=== PATIENT | female | born 1960 | race Caucasian/White ===

== ENCOUNTER 2020-01-19 09:26 | Day surgery (SDC) | payer OTHER ==
--- NOTE | 2020-01-16 14:20 | HP ---
DATE OF SURGERY: 01/19/2020 HISTORY OF PRESENT ILLNESS: The patient presents with a swollen, tender left elbow. It has been going on for some time. She had an image of that. She had some inflammation in the olecranon bursa. She saw ortho for this and they said it was a nonsurgical issue and did not do anything for her. She presents today in pain and wishes for surgical intervention. PAST MEDICAL HISTORY: Rheumatoid arthritis, hypertension, hyperlipidemia, hypothyroidism, anxiety and depression. PAST SURGICAL HISTORY: Appendectomy. ALLERGIES: NKDA. MEDICATIONS: Carvedilol, Alprazolam, steroid, Neurontin, trazodone, carbamazepine, hydroxyzine. FAMILY HISTORY: Heart disease, lung cancer, stroke, abdominal aortic aneurysm. SOCIAL HISTORY: Smokes one pack a day. Denies alcohol. REVIEW OF SYSTEMS: CONSTITUTIONAL: Denies fever or chills. CHEST: Denies shortness of breath. CVS: Denies chest pain. ABDOMEN: Denies abdominal pain, nausea, vomiting, diarrhea, constipation or rectal bleeding. INTEGUMENTARY: Left elbow inflammation and induration. PHYSICAL EXAMINATION: GENERAL: No acute distress. CHEST: Nonlabored. No shortness of breath. CVS: Regular rate and rhythm. ABDOMEN: Soft, nontender to palpation. EXTREMITIES: Left elbow inflammation, induration, tenderness. NEUROLOGIC: Alert. PSYCHIATRIC: Appropriate. IMPRESSION: Symptomatic olecranon bursitis of the left elbow. PLAN: Excision of left elbow bursa with Dr. Seb Lopez. As dictated by Marlen Lynn NP.
[~2020-01-19 09:26] MED LIST: Lactated Ringers 1,000 ML IV ONE; Sensorcaine 0.25% 10 ML ONE
[2020-01-19] MEDS ORDERED: Lactated Ringers 1,000 ML IV SCH (10:00)
[2020-01-19] MEDS ORDERED: Versed 2 MG/2 ML Injection ONE (11:30)
[2020-01-19] MEDS ORDERED: SUBLIMAZE 100 MCG/2 ML ONE ×2 (11:30→12:04)
[2020-01-19] MEDS ORDERED: DIPRIVAN 200 MG/20 ML IV ONE (11:30)
[2020-01-19] MEDS ORDERED: KEFZOL 1 GM ONE (11:46)
[2020-01-19] MEDS ORDERED: Ephedrine Sulfate 50 MG/ML ONE (12:01)
[2020-01-19] MEDS ORDERED: BACIGUENT 30 GM ONE (12:27)
--- NOTE | 2020-01-19 14:19 | OP ---
SURGERY DATE/TIME: 01/19/2020 1137 PREOPERATIVE DIAGNOSIS: Chronic olecranon bursitis, left. POSTOPERATIVE DIAGNOSIS: Chronic olecranon bursitis, left. PROCEDURE: Excision left olecranon bursa. SURGEON: Seb Lopez M.D. ANESTHESIA: General. COMPLICATIONS: None. CONDITION: Stable. INDICATION: A patient with symptomatic left chronic olecranon bursitis. DESCRIPTION OF PROCEDURE: Taken to surgery. General anesthetic. Routine prep and drape. Time out performed. Transverse incision. There was minimal redundant skin. No skin was taken. Bursa identified. The superficial surface totally cleared. The ulnar nerve had been marked also. At this time the contra-ulnar area was taken down to the bone. The lesion was then circumscribed. Today, the final 2 cm attachment to the olecranon was able to be parted through preserving the bottom layer with complete delivery of bursa without violation and without violating the periosteum, this looked excellent. Skin closed with 4-0 Prolene. Sterile compressive dressing applied. The patient tolerated the procedure satisfactorily.
[2020-01-19 14:59] VITALS: BP 187/95; PULSE 61; O2SAT 92
== END 2020-01-19 15:07 | disposition home or self-care (01) ==
LOC: SDC 09:26
PROVIDERS: ATTEND Surgery
DX: M70.22 Olecranon bursitis, left elbow (principal)
CPT/HCPCS: J0690; J2250; J2704; J3010; A9270-GY

== ENCOUNTER 2020-06-29 22:33 | Inpatient (IN) | payer OTHER ==
[2020-06-29] MEDS ORDERED: THIAMINE 200 MG/2 ML IV ONE (22:43)
[2020-06-29] MEDS ORDERED: THIAMINE 200 MG/2 ML ONE (23:29)
[2020-06-29] MEDS ORDERED: LEVOFLOXACIN 750MG/150ML D5W 750 MG/150 ML BAG IV STA (23:34)
[2020-06-29] MEDS ORDERED: ROCEPHIN 1 Gm-D5w 50 ml Bag** 1 G/50 ML IVPB IV STA (23:34)
[2020-06-29] MEDS ORDERED: LEVOFLOXACIN 750MG/150ML D5W 750 MG/150 ML BAG IV ONE (23:41)
[2020-06-29] MEDS ORDERED: Sodium Chloride 0.9% 1000 ML 1,000 ML ONE ×2 (23:41→23:42)
[2020-06-29] MEDS ORDERED: ROCEPHIN 1 Gm-D5w 50 ml Bag** 1 G/50 ML IVPB IV ONE (23:41)
[2020-06-29 23:42] LABS: Appearance SLIGHTLY CLOUDY (CLEAR); Bacteria RARE /HPF (NEGATIVE); Bilirubin NEGATIVE (NEGATIVE); Blood MODERATE Ery/ul (0-5); Epithelial Cells RARE /HPF (FEW); Glucose NEGATIVE (NEGATIVE); Granular Casts 0-2 /LPF (NEGATIVE); Ketones NEGATIVE (NEGATIVE); Leukocyte Esterase NEGATIVE (NEGATIVE); Mucus SLIGHT /HPF (NEGATIVE); Nitrite NEGATIVE (NEGATIVE); Protein,Urine Dip 100 (Negative); Specific Gravity 1.021 (1.005-1.025); Urobilinogen 4 mg/dL (0-1)
[2020-06-29 23:42] LABS: Hematocrit 38.1 % (35-47); Hemoglobin 12.3 gm/dl (12.0-16.0); Mean Cell Volume 89.2 fl (78-100); Mean Corpuscular Hemoglobin 28.8 pg (26-32); Mean Corpuscular Hgb Concent. 32.3 g/dl (32-36); Mean Platelet Volume 9.6 fl (7.5-11.0); Platelet Count 204 K/mm3 (150-450); Red Blood Count 4.27 M/mm3 (4.1-5.4); Red Cell Distribution Width 15.3 % (11.5-14.0); White Blood Count 24.6 K/mm3 (4.0-10.5)
[2020-06-29] MEDS: Sodium Chloride 0.9% 1000 ML 1,000 ML IV STA ×2 (23:43→23:48)
[2020-06-29 23:47] LABS: INR 1.57 (0.8-3.0); PROTIME 17.8 SECONDS (9.95-12.35)
[2020-06-29 23:50] LABS: PTT 33.4 SECONDS (25.3-37.0)
[2020-06-29 23:52] LABS: Amphetamine,Urine NEGATIVE (NEGATIVE); Barbiturate,Urine NEGATIVE (NEGATIVE); Benzodiazepine,Urine NEGATIVE (NEGATIVE); Cocaine,Urine NEGATIVE (NEGATIVE); Methadone,Urine NEGATIVE (NEGATIVE); Opiate,Urine NEGATIVE (NEGATIVE); PCP,Urine NEGATIVE (NEGATIVE); THC,Urine NEGATIVE (NEGATIVE)
[2020-06-30] MEDS ORDERED: POTASSIUM CHLORIDE 20 mEq IN WATER 100ML 20 MEQ/100 ML BAG IV ONE ×2 (00:16→01:24)
[2020-06-30 00:23] LABS: ALBUMIN 3.7 g/dL (3.5-5.0); ALKALINE PHOSPHATASE 97 U/L (38-126); ANION GAP 13.3 MEQ/L (5-15); BLOOD UREA NITROGEN 14 mg/dL (7-17); CHLORIDE 102 mmol/L (98-107); Calcium 8.3 mg/dL (8.4-10.2); Carbon Dioxide 22 mmol/L (22-30); Creatinine 1 0.92 mg/dL (0.52-1.04); EST GLOMERULAR FILTRATION RATE > 60.0 ML/MIN; ETHYL ALCOHOL < 10 mg/dL (0-10); Glucose 115 mg/dL (74-106); MAGNESIUM 1.4 mg/dL (1.6-2.3); SGOT/AST 38 U/L (14-36); SGPT/ALT 19 U/L (0-35); SODIUM 134 mmol/L (137-145); TSH, 3RD Generation 0.647 mIU/L (0.47-4.68); Total Protein 7.3 g/dL (6.3-8.2)
[2020-06-30 00:24] LABS: Potassium 2.9 mmol/L (3.5-5.1)
--- NOTE | 2020-06-30 00:24 | ERPHSYRPT ---
- History of Present Illness Time Seen by Provider: 06/29/20 22:50 Source: EMS Exam Limitations: clinical condition Patient Subjective Stated Complaint: Altered mental status Triage Nursing Assessment: Patient brought into ED via EMS and transferred to bed with assist of 3. Patient alert to self only. Patient garbling her words and not making sense. Patient's skin hot, warm and dry. EMS reports son went to check on patient in the am and she was sleeping. Patient's son went back later in the evening and noted she was still in bed naked and not acting right. Patient poor historian at this time. Patient repeating self. Physician History: Francis is a 59-year-old female who presents by EMS with a diagnosis of altered mental status. Apparently she was seen by her family earlier in the day and seemed her normal self they returned later this evening and found her in bed unclothed confused hot to the touch some wheezing and some coughing on arrival in the ER she had a temperature of 102.9 was coughing frequently and very confused and disoriented. There were no family members with her however the EMS personnel he knew her personally and said that this was a marked change from her. EMS found room air O2 sat to be 89% Timing/Duration: today Fever Severity: severe Fever Therapy TRACTOR ENGINE MECHANIC: none Associated Symptoms: confusion, cough, diaphoresis Allergies/Adverse Reactions: No Known Drug Allergies Allergy (Verified 06/29/20 23:18) Home Medications: ARIPiprazole [Aripiprazole] 5 mg PO DAILY 01/11/20 [History] Carbamazepine 200 mg [Tegretol 200 MG] 200 mg PO TID 01/11/20 [History] Duloxetine HCl 30 mg [Cymbalta 30 MG Capsule] 120 mg PO DAILY 01/11/20 [History] Hydroxyzine HCl 10 mg PO TID 01/11/20 [History] Pregabalin [Lyrica] 300 mg PO BID 01/11/20 [History] Thyroid 150 mg PO DAILY 01/11/20 [History] Tizanidine HCl 4 mg [Zanaflex 4 MG] 4 mg PO Q8H PRN PRN 01/11/20 [History] Albuterol Sulfate [Proair Hfa] 2 puffs IH Q6H PRN PRN 06/30/20 [History] Aspirin 81 gm Chew [Baby Aspirin 81 mg Chew] 1 tab PO DAILY 06/30/20 [History] Benazepril HCl 1 tab PO DAILY 06/30/20 [History] Fluticasone Propionate [Flovent 110 Mcg MDI] 1 puff IH BID 06/30/20 [History] Furosemide 40 mg [Lasix 40 MG] 1 tab PO DAILY 06/30/20 [History] Potassium Chloride 10 Meq Tab* [Klor Con 10 MEQ] 10 meq PO BID 06/30/20 [History] Trazodone HCl 50 mg [Desyrel 50 mg] 50 mg PO HS 06/30/20 [History] Hx Influenza Vaccination/Date Given: (unknown) Hx Pneumococcal Vaccination/Date Given: (unknown) Immunizations Up to Date: (unknown) Travel Risk - International Travel Have you traveled outside of the country in past 3 weeks: No - Coronavirus Screening Are you exhibiting any of the following symptoms?: Yes Symptoms: Fever Close contact with a COVID-19 positive Pt in past 14-21 Days: No - Vaccine Status Have you recieved a Covid-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: Yes Aoc Director Combat Operations Officer: Unknown - Vaccination Dates Dates if Unknown: unknown - Review of Systems All Other Systems: Unable due to condition - Past Medical History Pertinent Past Medical History: Yes Neurological History: Other ENT History: No Pertinent History Cardiac History: Hypertension Respiratory History: Bronchitis Endocrine Medical History: No Pertinent History Musculoskeletal History: No Pertinent History GI Medical History: No Pertinent History History: No Pertinent History Psycho-Social History: Anxiety Female Reproductive Disorders: No Pertinent History Other Medical History: trigeminal Neuralgia - Past Surgical History Past Surgical History: Yes Neuro Surgical History: No Pertinent History Cardiac: No Pertinent History Respiratory: No Pertinent History Gastrointestinal: Appendectomy Genitourinary: No Pertinent History Musculoskeletal: No Pertinent History Female Surgical History: No Pertinent History - Social History Smoking Status: Current every day smoker How long have you smoked: age 22 Exposure to second hand smoke: No Drug Use: none - Nursing Vital Signs Nursing Vital Signs: Initial Vital Signs Temperature 102.9 F 06/29/20 22:42 Pulse Rate 110 H 06/29/20 22:42 Respiratory Rate 17 06/29/20 22:42 Blood Pressure 144/73 06/29/20 22:42 O2 Sat by Pulse Oximetry 93 L 06/29/20 22:42 Pain Scale Pain Intensity 0 - Physical Exam General Appearance: moderate distress Eye Exam: PERRL/EOMI ENT Exam: normal ENT inspection, No pharyngeal erythema, No tonsillar exudate Neck Exam: supple, full range of motion, No meningismus Respiratory Exam: decreased breath sounds, crackles/rales, rhonchi, wheezing Cardiovascular/Chest Exam: normal heart sounds, tachycardia Gastrointestinal/Abdominal Exam: soft, non tender, distended Pelvic Exam: not done Rectal Exam: deferred Extremity Exam: normal inspection Neurologic Exam: disoriented, confusion Skin Exam: normal color, diaphoresis SpO2 Interpretation: hypoxic SpO2: 90 O2 Delivery: Nasal Cannula (5 L) - Course Nursing assessment & vital signs reviewed: Yes EKG Interpreted by Me: RATE (100), Sinus Tach, NORMAL AXIS, NORMAL INTERVALS, NORMAL QRS, Non-specific ST Changes - Radiology Exams Chest X-ray Interpretation: Teleradiologist Report, Pneumonia (Prominent right lower lobe pneumonia) - CT Exams Head CT Interpretation: Negative Ordered Tests: Active Orders 24 hr Category Date Time Status Cake Icer And Packer STAT Care 06/29/20 22:38 Active EKG-ER Only STAT Care 06/29/20 22:37 Active IV Insertion STAT Care 06/29/20 22:37 Active NPO (ED) STAT Care 06/29/20 22:38 Active NPO (ED) STAT Care 06/29/20 22:41 Active Oxygen-ED Only Nasal Cannula 4 lpm Care 06/29/20 22:37 Active Pulse Oximetry (ED) STAT Care 06/29/20 22:37 Active CHEST 1 VIEW (PORTABLE) Stat Exams 06/29/20 22:38 Taken HEAD WITHOUT CONTRAST [CT] Stat Exams 06/29/20 22:38 Taken BLOOD CULTURE Stat Lab 06/29/20 23:20 Received CBC W DIFF Stat Lab 06/29/20 23:20 Completed CMP Stat Lab 06/29/20 23:20 Completed CULTURE,URINE Stat Lab 06/29/20 23:33 Received ETHYL ALCOHOL Stat Lab 06/29/20 23:20 Completed Lactic Acid Stat Lab 06/29/20 23:40 Completed MAGNESIUM Stat Lab 06/29/20 23:20 Completed Manual Differential NC Stat Lab 06/29/20 23:20 Completed PROCALCITONIN Stat Lab 06/29/20 23:40 Completed PROTIME WITH INR Stat Lab 06/29/20 23:20 Completed PTT Stat Lab 06/29/20 23:20 Completed SED RATE [Erythrocyte Sedimentation Rate] Stat Lab 06/29/20 23:20 Completed TROPONIN Q3H Lab 06/29/20 23:20 Completed TROPONIN Q3H Lab 06/30/20 00:41 Completed TROPONIN Q3H Lab 06/30/20 04:45 Ordered TROPONIN Q3H Lab 06/30/20 07:45 Ordered TROPONIN Q3H Lab 06/30/20 10:45 Ordered TSH, 3RD Generation Stat Lab 06/29/20 23:20 Completed UA W/RFX UR CULTURE Stat Lab 06/29/20 23:21 Completed Urine Triage Profile Stat Lab 06/29/20 23:21 Completed Medication Summary Generic Name Dose Route Start Last Admin Trade Name Freq PRN Reason Stop Dose Admin Potassium Chloride 20 meq in 100 mls @ 50 mls/hr 06/30/20 00:16 06/30/20 00:31 Potassium Chloride 20 Meq In Water 100ml IV 06/30/20 02:15 50 mls/hr STAT ONE Administration Sodium Chloride 1,000 mls @ 999 mls/hr 06/30/20 00:38 06/30/20 00:47 Sodium Chloride 0.9% 1000 Ml IV 06/30/20 01:38 Not Given .Q1H1M STA Sodium Chloride 1,000 mls @ 999 mls/hr 06/30/20 00:38 06/30/20 00:48 Sodium Chloride 0.9% 1000 Ml IV 06/30/20 01:38 999 mls/hr .Q1H1M STA Administration Discontinued Medications Generic Name Dose Route Start Last Admin Trade Name Freq PRN Reason Stop Dose Admin Sodium Chloride 1,000 mls @ 999 mls/hr 06/29/20 23:34 06/30/20 00:49 Sodium Chloride 0.9% 1000 Ml IV 06/30/20 00:34 Infused .Q1H1M STA Infusion Ceftriaxone Sodium/Dextrose 1 g in 50 mls @ 100 mls/hr 06/29/20 23:34 06/30/20 00:35 Rocephin 1 Gm-D5w 50 Ml Bag IV 06/30/20 00:03 Infused STAT STA Infusion Levofloxacin/Dextrose 750 mg in 150 mls @ 100 mls/hr 06/29/20 23:34 06/29/20 23:48 Levofloxacin 750mg/150ml D5w IV 06/30/20 01:03 100 mls/hr STAT STA 100 mls/hr Administration Sodium Chloride 1,000 mls @ 999 mls/hr 06/29/20 23:41 06/30/20 00:50 Sodium Chloride 0.9% 1000 Ml IV 06/30/20 00:41 Infused .Q1H1M STA Infusion Sodium Chloride Confirm 06/29/20 23:41 Sodium Chloride 0.9% 1000 Ml Administered 06/29/20 23:42 Dose 1,000 mls @ ud .ROUTE .STK-MED ONE Ceftriaxone Sodium/Dextrose Confirm 06/29/20 23:41 Rocephin 1 Gm-D5w 50 Ml Bag Administered 06/29/20 23:42 Dose 1 g in 50 mls @ ud IV .STK-MED ONE Levofloxacin/Dextrose Confirm 06/29/20 23:41 Levofloxacin 750mg/150ml D5w Administered 06/29/20 23:42 Dose 750 mg in 150 mls @ ud IV .STK-MED ONE Sodium Chloride Confirm 06/29/20 23:42 Sodium Chloride 0.9% 1000 Ml Administered 06/29/20 23:43 Dose 1,000 mls @ ud .ROUTE .STK-MED ONE Sodium Chloride Confirm 06/30/20 00:29 Sodium Chloride 0.9% 1000 Ml Administered 06/30/20 00:30 Dose 1,000 mls @ ud .ROUTE .STK-MED ONE Potassium Chloride Confirm 06/30/20 00:30 Potassium Chloride 20 Meq In Water 100ml Administered 06/30/20 00:31 Dose 100 mls @ ud IV .STK-MED ONE Thiamine HCl 100 mg 06/29/20 22:43 06/29/20 23:31 Thiamine 200 Mg/2 Ml IV 06/29/20 22:44 100 mg STAT ONE Administration Thiamine HCl Confirm 06/29/20 23:29 Thiamine 200 Mg/2 Ml Administered 06/29/20 23:30 Dose 200 mg .ROUTE .STK-MED ONE Lab/Rad Data: Laboratory Result Diagrams 06/29/20 23:20 06/29/20 23:20 Laboratory Results 06/30/20 06/29/20 06/29/20 Range/Units 00:41 23:40 23:40 WBC (4.0-10.5) K/mm3 RBC (4.1-5.4) M/mm3 Hgb (12.0-16.0) gm/dl Hct (35-47) % MCV (78-100) fl MCH (26-32) pg MCHC (32-36) g/dl RDW (11.5-14.0) % Plt Count (150-450) K/mm3 MPV (7.5-11.0) fl Segmented Neutrophils (36.0-66.0) % Band Neutrophils (0.0-2.0) % Lymphocytes (Manual) (24-44) % Monocytes (Manual) (0.0-12.0) % Dohle Bodies Platelet Estimate (NORMAL) RBC Morphology Polychromasia ESR (0-20) mm/hr PT (9.95-12.35) SECONDS INR (0.8-3.0) APTT (25.3-37.0) SECONDS Sodium (137-145) mmol/L Potassium (3.5-5.1) mmol/L Chloride (98-107) mmol/L Carbon Dioxide (22-30) mmol/L Anion Gap (5-15) MEQ/L BUN (7-17) mg/dL Creatinine (0.52-1.04) mg/dL Estimated GFR ML/MIN Glucose (74-106) mg/dL Lactic Acid 1.5 (0.4-2.0) Calcium (8.4-10.2) mg/dL Magnesium (1.6-2.3) mg/dL Total Bilirubin (0.2-1.3) mg/dL AST (14-36) U/L ALT (0-35) U/L Alkaline Phosphatase (38-126) U/L Ammonia (9-30) umol/L Troponin I 0.054 H* (0.000-0.034) ng/mL Serum Total Protein (6.3-8.2) g/dL Albumin (3.5-5.0) g/dL Procalcitonin 10.500 H* (0.030-0.080) ng/mL TSH 3rd Generation (0.47-4.68) mIU/L Urine Color (YELLOW) Urine Appearance (CLEAR) Urine pH (5-6) Ur Specific [place] (1.005-1.025) Urine Protein (Negative) Urine Ketones (NEGATIVE) Urine Blood (0-5) Baldomero/ul Urine Nitrite (NEGATIVE) Urine Bilirubin (NEGATIVE) Urine Urobilinogen (0-1) mg/dL Ur Leukocyte Esterase (NEGATIVE) Urine WBC (Auto) (0-5) /HPF Urine RBC (Auto) (0-2) /HPF U Epithel Cells (Auto) (FEW) /HPF Urine Bacteria (Auto) (NEGATIVE) /HPF Granular Casts (Auto) (NEGATIVE) /LPF Urine Mucus (Auto) (NEGATIVE) /HPF Urine Culture Reflexed (NO) Urine Glucose (NEGATIVE) mg/dL Urine Opiates Level (NEGATIVE) Ur Methadone (NEGATIVE) Urine Barbiturates (NEGATIVE) Ur Phencyclidine (PCP) (NEGATIVE) Urine Amphetamine (NEGATIVE) U Benzodiazepine Level (NEGATIVE) Urine Cocaine (NEGATIVE) Urine Marijuana (THC) (NEGATIVE) Ethyl Alcohol (0-10) mg/dL 06/29/20 06/29/20 06/29/20 Range/Units 23:21 23:21 23:20 WBC (4.0-10.5) K/mm3 RBC (4.1-5.4) M/mm3 Hgb (12.0-16.0) gm/dl Hct (35-47) % MCV (78-100) fl MCH (26-32) pg MCHC (32-36) g/dl RDW (11.5-14.0) % Plt Count (150-450) K/mm3 MPV (7.5-11.0) fl Segmented Neutrophils (36.0-66.0) % Band Neutrophils (0.0-2.0) % Lymphocytes (Manual) (24-44) % Monocytes (Manual) (0.0-12.0) % Dohle Bodies Platelet Estimate (NORMAL) RBC Morphology Polychromasia ESR (0-20) mm/hr PT (9.95-12.35) SECONDS INR (0.8-3.0) APTT (25.3-37.0) SECONDS Sodium 134 L (137-145) mmol/L Potassium 2.9 L* (3.5-5.1) mmol/L Chloride 102 (98-107) mmol/L Carbon Dioxide 22 (22-30) mmol/L Anion Gap 13.3 (5-15) MEQ/L BUN 14 (7-17) mg/dL Creatinine 0.92 (0.52-1.04) mg/dL Estimated GFR > 60.0 ML/MIN Glucose 115 H (74-106) mg/dL Lactic Acid (0.4-2.0) Calcium 8.3 L (8.4-10.2) mg/dL Magnesium 1.4 L (1.6-2.3) mg/dL Total Bilirubin 1.00 (0.2-1.3) mg/dL AST 38 H (14-36) U/L ALT 19 (0-35) U/L Alkaline Phosphatase 97 (38-126) U/L Ammonia (9-30) umol/L Troponin I (0.000-0.034) ng/mL Serum Total Protein 7.3 (6.3-8.2) g/dL Albumin 3.7 (3.5-5.0) g/dL Procalcitonin (0.030-0.080) ng/mL TSH 3rd Generation 0.647 (0.47-4.68) mIU/L Urine Color MARIUM (YELLOW) Urine Appearance SLIGHTLY CLOUDY (CLEAR) Urine pH 5.0 (5-6) Ur Specific [place] 1.021 (1.005-1.025) Urine Protein 100 (Negative) Urine Ketones NEGATIVE (NEGATIVE) Urine Blood MODERATE (0-5) Baldomero/ul Urine Nitrite NEGATIVE (NEGATIVE) Urine Bilirubin NEGATIVE (NEGATIVE) Urine Urobilinogen 4 (0-1) mg/dL Ur Leukocyte Esterase NEGATIVE (NEGATIVE) Urine WBC (Auto) 11-15 (0-5) /HPF Urine RBC (Auto) 3-5 (0-2) /HPF U Epithel Cells (Auto) RARE (FEW) /HPF Urine Bacteria (Auto) RARE (NEGATIVE) /HPF Granular Casts (Auto) 0-2 (NEGATIVE) /LPF Urine Mucus (Auto) SLIGHT (NEGATIVE) /HPF Urine Culture Reflexed ORDERED SEPARATELY (NO) Urine Glucose NEGATIVE (NEGATIVE) mg/dL Urine Opiates Level NEGATIVE (NEGATIVE) Ur Methadone NEGATIVE (NEGATIVE) Urine Barbiturates NEGATIVE (NEGATIVE) Ur Phencyclidine (PCP) NEGATIVE (NEGATIVE) Urine Amphetamine NEGATIVE (NEGATIVE) U Benzodiazepine Level NEGATIVE (NEGATIVE) Urine Cocaine NEGATIVE (NEGATIVE) Urine Marijuana (THC) NEGATIVE (NEGATIVE) Ethyl Alcohol < 10 (0-10) mg/dL 06/29/20 06/29/20 06/29/20 Range/Units 23:20 23:20 23:20 WBC (4.0-10.5) K/mm3 RBC (4.1-5.4) M/mm3 Hgb (12.0-16.0) gm/dl Hct (35-47) % MCV (78-100) fl MCH (26-32) pg MCHC (32-36) g/dl RDW (11.5-14.0) % Plt Count (150-450) K/mm3 MPV (7.5-11.0) fl Segmented Neutrophils (36.0-66.0) % Band Neutrophils (0.0-2.0) % Lymphocytes (Manual) (24-44) % Monocytes (Manual) (0.0-12.0) % Dohle Bodies Platelet Estimate (NORMAL) RBC Morphology Polychromasia ESR 69 H (0-20) mm/hr PT (9.95-12.35) SECONDS INR (0.8-3.0) APTT (25.3-37.0) SECONDS Sodium (137-145) mmol/L Potassium (3.5-5.1) mmol/L Chloride (98-107) mmol/L Carbon Dioxide (22-30) mmol/L Anion Gap (5-15) MEQ/L BUN (7-17) mg/dL Creatinine (0.52-1.04) mg/dL Estimated GFR ML/MIN Glucose (74-106) mg/dL Lactic Acid (0.4-2.0) Calcium (8.4-10.2) mg/dL Magnesium (1.6-2.3) mg/dL Total Bilirubin (0.2-1.3) mg/dL AST (14-36) U/L ALT (0-35) U/L Alkaline Phosphatase (38-126) U/L Ammonia < 9 L (9-30) umol/L Troponin I 0.061 H* (0.000-0.034) ng/mL Serum Total Protein (6.3-8.2) g/dL Albumin (3.5-5.0) g/dL Procalcitonin (0.030-0.080) ng/mL TSH 3rd Generation (0.47-4.68) mIU/L Urine Color (YELLOW) Urine Appearance (CLEAR) Urine pH (5-6) Ur Specific [place] (1.005-1.025) Urine Protein (Negative) Urine Ketones (NEGATIVE) Urine Blood (0-5) Baldomero/ul Urine Nitrite (NEGATIVE) Urine Bilirubin (NEGATIVE) Urine Urobilinogen (0-1) mg/dL Ur Leukocyte Esterase (NEGATIVE) Urine WBC (Auto) (0-5) /HPF Urine RBC (Auto) (0-2) /HPF U Epithel Cells (Auto) (FEW) /HPF Urine Bacteria (Auto) (NEGATIVE) /HPF Granular Casts (Auto) (NEGATIVE) /LPF Urine Mucus (Auto) (NEGATIVE) /HPF Urine Culture Reflexed (NO) Urine Glucose (NEGATIVE) mg/dL Urine Opiates Level (NEGATIVE) Ur Methadone (NEGATIVE) Urine Barbiturates (NEGATIVE) Ur Phencyclidine (PCP) (NEGATIVE) Urine Amphetamine (NEGATIVE) U Benzodiazepine Level (NEGATIVE) Urine Cocaine (NEGATIVE) Urine Marijuana (THC) (NEGATIVE) Ethyl Alcohol (0-10) mg/dL 06/29/20 06/29/20 Range/Units 23:20 23:20 WBC 24.6 H (4.0-10.5) K/mm3 RBC 4.27 (4.1-5.4) M/mm3 Hgb 12.3 (12.0-16.0) gm/dl Hct 38.1 (35-47) % MCV 89.2 (78-100) fl MCH 28.8 (26-32) pg MCHC 32.3 (32-36) g/dl RDW 15.3 H (11.5-14.0) % Plt Count 204 (150-450) K/mm3 MPV 9.6 (7.5-11.0) fl Segmented Neutrophils 81 H (36.0-66.0) % Band Neutrophils 8 H (0.0-2.0) % Lymphocytes (Manual) 8 L (24-44) % Monocytes (Manual) 3 (0.0-12.0) % Dohle Bodies 1+ Platelet Estimate NORMAL (NORMAL) RBC Morphology NORMAL Polychromasia 1+ ESR (0-20) mm/hr PT 17.8 H (9.95-12.35) SECONDS INR 1.57 (0.8-3.0) APTT 33.4 (25.3-37.0) SECONDS Sodium (137-145) mmol/L Potassium (3.5-5.1) mmol/L Chloride (98-107) mmol/L Carbon Dioxide (22-30) mmol/L Anion Gap (5-15) MEQ/L BUN (7-17) mg/dL Creatinine (0.52-1.04) mg/dL Estimated GFR ML/MIN Glucose (74-106) mg/dL Lactic Acid (0.4-2.0) Calcium (8.4-10.2) mg/dL Magnesium (1.6-2.3) mg/dL Total Bilirubin (0.2-1.3) mg/dL AST (14-36) U/L ALT (0-35) U/L Alkaline Phosphatase (38-126) U/L Ammonia (9-30) umol/L Troponin I (0.000-0.034) ng/mL Serum Total Protein (6.3-8.2) g/dL Albumin (3.5-5.0) g/dL Procalcitonin (0.030-0.080) ng/mL TSH 3rd Generation (0.47-4.68) mIU/L Urine Color (YELLOW) Urine Appearance (CLEAR) Urine pH (5-6) Ur Specific [place] (1.005-1.025) Urine Protein (Negative) Urine Ketones (NEGATIVE) Urine Blood (0-5) Baldomero/ul Urine Nitrite (NEGATIVE) Urine Bilirubin (NEGATIVE) Urine Urobilinogen (0-1) mg/dL Ur Leukocyte Esterase (NEGATIVE) Urine WBC (Auto) (0-5) /HPF Urine RBC (Auto) (0-2) /HPF U Epithel Cells (Auto) (FEW) /HPF Urine Bacteria (Auto) (NEGATIVE) /HPF Granular Casts (Auto) (NEGATIVE) /LPF Urine Mucus (Auto) (NEGATIVE) /HPF Urine Culture Reflexed (NO) Urine Glucose (NEGATIVE) mg/dL Urine Opiates Level (NEGATIVE) Ur Methadone (NEGATIVE) Urine Barbiturates (NEGATIVE) Ur Phencyclidine (PCP) (NEGATIVE) Urine Amphetamine (NEGATIVE) U Benzodiazepine Level (NEGATIVE) Urine Cocaine (NEGATIVE) Urine Marijuana (THC) (NEGATIVE) Ethyl Alcohol (0-10) mg/dL - Progress Progress: unchanged Progress Note: 06/30/20 01:14 Patient was treated for sepsis since she met the criteria she also has urinary tract infection right lower lobe pneumonia hypokalemia elevated inflammatory markers hypoxia. She did have a slightly elevated troponin which did trend downward at 2 hours. Discussed with : Paul Will see patient in: hospital (full admit) - Departure Departure Disposition: In-patient Admission Clinical Impression: Sepsis, Pneumonia, Hypokalemia Condition: Critical Critical Care Time: Yes Critical Care Time(excluding separately billable procedures): Critical 105-134 mins Referrals: KADEN SCHAFER CONTACT LENS INSPECTOR [Primary Care Provider] -
[2020-06-30 00:28] LABS: BAND 8 % (0.0-2.0); Dohle Bodies 1+; Lymphocytes 8 % (24-44); Monocyte 3 % (0.0-12.0); Neutrophils 81 % (36.0-66.0); Platelet Estimate NORMAL (NORMAL); Polychromasia 1+; Total Cells Counted 100
[2020-06-30] MEDS ORDERED: Sodium Chloride 0.9% 1000 ML 1,000 ML ONE (00:29)
[2020-06-30] MEDS ORDERED: POTASSIUM CHLORIDE 20 mEq IN WATER 100ML 100 ML IV ONE ×2 (00:30→02:35)
[2020-06-30] MEDS: Sodium Chloride 0.9% 1000 ML 1,000 ML IV STA ×2 (00:31→00:44)
[2020-06-30] MEDS ORDERED: Sodium Chloride 0.9% 1000 ML 1,000 ML IV STA ×2 (00:38)
[2020-06-30] MEDS ORDERED: Zofran 4 MG/2 ML VIAL IV PRN (01:18)
[2020-06-30 02:15] LABS: INFLUENZA A NEGATIVE (NEGATIVE); INFLUENZA B NEGATIVE (NEGATIVE); RESPIRATORY SYNCTIAL VIRUS NEGATIVE (Negative)
[2020-06-30] MEDS: Sodium Chloride 0.9% 1000 ML 1,000 ML IV SCH ×2 (02:37→05:14)
[2020-06-30] MEDS: DUONEB 0.5-3 MG/3 ml Neb IH SCH ×3 (05:11→19:54)
[2020-06-30 05:20] LABS: ALBUMIN 3.2 g/dL (3.5-5.0); ALKALINE PHOSPHATASE 73 U/L (38-126); ANION GAP 11.6 MEQ/L (5-15); BLOOD UREA NITROGEN 11 mg/dL (7-17); CHLORIDE 110 mmol/L (98-107); Calcium 7.6 mg/dL (8.4-10.2); Carbon Dioxide 20 mmol/L (22-30); Creatinine 1 0.65 mg/dL (0.52-1.04); EST GLOMERULAR FILTRATION RATE > 60.0 ML/MIN; Glucose 138 mg/dL (74-106); Potassium 3.8 mmol/L (3.5-5.1); SGOT/AST 34 U/L (14-36); SGPT/ALT 18 U/L (0-35); SODIUM 138 mmol/L (137-145); Total Protein 6.4 g/dL (6.3-8.2)
[2020-06-30 05:44] LABS: Hematocrit 34.7 % (35-47); Hemoglobin 11.1 gm/dl (12.0-16.0); Mean Cell Volume 90.6 fl (78-100); Mean Platelet Volume 9.9 fl (7.5-11.0); Platelet Count 198 K/mm3 (150-450); Red Blood Count 3.83 M/mm3 (4.1-5.4); Red Cell Distribution Width 15.5 % (11.5-14.0); White Blood Count 23.5 K/mm3 (4.0-10.5)
[2020-06-30 06:44] LABS: BAND 10 % (0.0-2.0); Lymphocytes 4 % (24-44); Neutrophils 86 % (36.0-66.0); Platelet Estimate NORMAL (NORMAL); Total Cells Counted 100
[2020-06-30 06:45] LABS: Toxic Granulation 1+
--- NOTE | 2020-06-30 07:26 | XRAY ---
Indication: Acute mental status change. Fever. Comparison: None Portable chest demonstrates right lower lobe infiltrate versus atelectasis without large effusion. Remaining heart and left lung normal. Bony thorax intact with minimal degenerative changes. Comment: Preliminary interpretation was made by [facility]. No critical discrepancy.
--- NOTE | 2020-06-30 07:28 | XRAY ---
Indication: Acute mental status change. Confusion. Stroke. Multiple contiguous axial images obtained through the head without contrast. Comparison: None Several images are degraded by motion artifact even with repeat CT. No gross acute intracranial hemorrhage, abnormal extra-axial fluid collection, or mass effect. Fourth ventricle is midline without hydrocephalus. Bony calvarium grossly intact. Visualized paranasal sinuses and mastoid air cells are clear. Impression: Motion artifact. No gross acute intracranial abnormalities. Comment: Preliminary interpretation was made by [facility]. No critical discrepancy.
[2020-06-30] MEDS ORDERED: Zofran 4 MG/2 ML VIAL ONE (07:36)
--- NOTE | 2020-06-30 09:29 | PCM.HP ---
History of Present Illness - Chief Complaint Chief Complaint: UTI, pneumonia, altered mental status History of Present Illness: is a 59 year old female who was brought to ER secondary to altered mental status, she was apparently garbling her words and not clothed and very much confused which is new for her, she has some trouble finding words but is much improved today. She reports a history of trigeminal neuralgia, she is on a large list of psychoactive meds including cymbala, abilify, tegretol, lyrica, tizanidine. she has no local physician, states she has chronic pain on the right side of her face and is to see a neurologist next week. she has some cough, denies pain currently. - Review of Systems Constitutional: Fever, Weakness, No Chills Respiratory: Cough Cardiac: No Chest Pain Abdominal/Gastrointestinal: No Abdominal Pain, No Nausea, No Vomiting, No Diarrhea Genitourinary Symptoms: No Dysuria All Other Systems: Reviewed and Negative Medications & Allergies Home Medications: Home Medication List ARIPiprazole [Aripiprazole] 5 mg PO DAILY 01/11/20 [History Confirmed 06/30/20] Carbamazepine 200 mg [Tegretol 200 MG] 200 mg PO TID 01/11/20 [History Confirmed 06/30/20] Duloxetine HCl 30 mg [Cymbalta 30 MG Capsule] 120 mg PO DAILY 01/11/20 [History Confirmed 06/30/20] Hydroxyzine HCl 10 mg PO TID 01/11/20 [History Confirmed 06/29/20] Pregabalin [Lyrica] 300 mg PO BID 01/11/20 [History Confirmed 06/29/20] Thyroid 150 mg PO DAILY 01/11/20 [History Confirmed 06/30/20] Tizanidine HCl 4 mg [Zanaflex 4 MG] 4 mg PO Q8H PRN PRN 01/11/20 [History Confirmed 06/29/20] Albuterol Sulfate [Proair Hfa] 2 puffs IH Q6H PRN PRN 06/30/20 [History Confir med 06/30/20] Aspirin 81 gm Chew [Baby Aspirin 81 mg Chew] 1 tab PO DAILY 06/30/20 [History Confirmed 06/30/20] Benazepril HCl 1 tab PO DAILY 06/30/20 [History Confirmed 06/30/20] Fluticasone Propionate [Flovent 110 Mcg MDI] 1 puff IH BID 06/30/20 [History Confirmed 06/30/20] Furosemide 40 mg [Lasix 40 MG] 1 tab PO DAILY 06/30/20 [History Confirmed 06/30/20] Potassium Chloride 10 Meq Tab* [Klor Con 10 MEQ] 10 meq PO BID 06/30/20 [History Confirmed 06/30/20] Trazodone HCl 50 mg [Desyrel 50 mg] 50 mg PO HS 06/30/20 [History Confirmed 06/30/20] Allergies/Adverse Reactions: Allergies Allergy/AdvReac Type Severity Reaction Status Date / Time No Known Drug Allergies Allergy Verified 06/29/20 23:18 - Past Medical History Past Medical History: Yes Neurological History: Peripheral Neuropathy ENT History: No Pertinent History Cardiac History: Congestive Heart Failure, Hypertension Respiratory History: CHF, Pneumonia Endocrine Medical History: No Pertinent History Musculoskelatal History: No Pertinent History GI Medical History: No Pertinent History History: No Pertinent History Pyscho-Social History: No Pertinent History Reproductive Disorders: No Pertinent History Comment: pt unable to participate in admission documentation due to severe confusion, history taken off meds list - Female History Are you now?: No - Past Surgical History Past Surgical History: Yes Neuro Surgical History: No Pertinent History Cardiac History: No Pertinent History Respiratory Surgery: No Pertinent History GI Surgical History: Appendectomy Genitourinary Surgical Hx: No Pertinent History Musculskeletal Surgical Hx: No Pertinent History Female Surgical History: No Pertinent History - Social History Smoking Status: Current every day smoker How long have you smoked: age 22 Exposure to second hand smoke: No Alcohol: None Drug Use: none - Physical Exam Vital Signs: Vital Signs - 24 hr Temp Pulse Resp BP Pulse Ox 06/30/20 07:20 98.9 F 81 17 125/68 92 L 06/30/20 06:15 99 F 86 20 120/71 95 06/30/20 05:11 84 19 95 06/30/20 05:00 99.3 F 85 20 129/81 92 L 06/30/20 03:59 99.7 F 84 17 125/71 94 L 06/30/20 03:10 98.2 F 88 17 127/71 93 L 06/30/20 02:22 100.4 F 91 H 148/84 97 06/30/20 01:16 90 L 06/30/20 01:05 100.4 F 93 H 151/78 97 06/30/20 00:27 101.2 F 99 H 19 135/79 97 06/29/20 23:26 90 L 06/29/20 22:42 102.9 F 110 H 17 144/73 93 L General Appearance: no apparent distress, alert Neurologic Exam: alert, oriented x 3, cooperative Respiratory Exam: crackles/rales Cardiovascular Exam: regular rate/rhythm, normal heart sounds, normal peripheral pulses Gastrointestinal/Abdomen Exam: soft, normal bowel sounds, No tenderness, No mass Extremity Exam: normal inspection, normal range of motion, pelvis stable Skin Exam: normal color, warm, dry, No rash Results - Labs Lab/Micro Results: Lab Results-Last 24 Hours 06/29/20 06/29/20 06/29/20 Range/Units 23:20 23:20 23:20 WBC 24.6 H (4.0-10.5) K/mm3 RBC 4.27 (4.1-5.4) M/mm3 Hgb 12.3 (12.0-16.0) gm/dl Hct 38.1 (35-47) % MCV 89.2 (78-100) fl MCH 28.8 (26-32) pg MCHC 32.3 (32-36) g/dl RDW 15.3 H (11.5-14.0) % Plt Count 204 (150-450) K/mm3 MPV 9.6 (7.5-11.0) fl Segmented Neutrophils 81 H (36.0-66.0) % Band Neutrophils 8 H (0.0-2.0) % Lymphocytes (Manual) 8 L (24-44) % Monocytes (Manual) 3 (0.0-12.0) % Toxic Granulation Dohle Bodies 1+ Platelet Estimate NORMAL (NORMAL) RBC Morphology NORMAL Polychromasia 1+ ESR (0-20) mm/hr PT 17.8 H (9.95-12.35) SECONDS INR 1.57 (0.8-3.0) APTT 33.4 (25.3-37.0) SECONDS Sodium (137-145) mmol/L Potassium (3.5-5.1) mmol/L Chloride (98-107) mmol/L Carbon Dioxide (22-30) mmol/L Anion Gap (5-15) MEQ/L BUN (7-17) mg/dL Creatinine (0.52-1.04) mg/dL Estimated GFR ML/MIN Glucose (74-106) mg/dL Lactic Acid (0.4-2.0) Calcium (8.4-10.2) mg/dL Magnesium (1.6-2.3) mg/dL Total Bilirubin (0.2-1.3) mg/dL AST (14-36) U/L ALT (0-35) U/L Alkaline Phosphatase (38-126) U/L Ammonia (9-30) umol/L Troponin I 0.061 H* (0.000-0.034) ng/mL Serum Total Protein (6.3-8.2) g/dL Albumin (3.5-5.0) g/dL Procalcitonin (0.030-0.080) ng/mL TSH 3rd Generation (0.47-4.68) mIU/L Urine Color (YELLOW) Urine Appearance (CLEAR) Urine pH (5-6) Ur Specific [place] (1.005-1.025) Urine Protein (Negative) Urine Ketones (NEGATIVE) Urine Blood (0-5) Baldomero/ul Urine Nitrite (NEGATIVE) Urine Bilirubin (NEGATIVE) Urine Urobilinogen (0-1) mg/dL Ur Leukocyte Esterase (NEGATIVE) Urine WBC (Auto) (0-5) /HPF Urine RBC (Auto) (0-2) /HPF U Epithel Cells (Auto) (FEW) /HPF Urine Bacteria (Auto) (NEGATIVE) /HPF Granular Casts (Auto) (NEGATIVE) /LPF Urine Mucus (Auto) (NEGATIVE) /HPF Urine Culture Reflexed (NO) Urine Glucose (NEGATIVE) mg/dL Urine Opiates Level (NEGATIVE) Ur Methadone (NEGATIVE) Urine Barbiturates (NEGATIVE) Ur Phencyclidine (PCP) (NEGATIVE) Urine Amphetamine (NEGATIVE) U Benzodiazepine Level (NEGATIVE) Urine Cocaine (NEGATIVE) Urine Marijuana (THC) (NEGATIVE) Ethyl Alcohol (0-10) mg/dL Influenza Type A Ag (NEGATIVE) Influenza Type B Ag (NEGATIVE) RSV (PCR) (Negative) SARS-CoV-2 (PCR) (NEGATIVE) 06/29/20 06/29/20 06/29/20 Range/Units 23:20 23:20 23:20 WBC (4.0-10.5) K/mm3 RBC (4.1-5.4) M/mm3 Hgb (12.0-16.0) gm/dl Hct (35-47) % MCV (78-100) fl MCH (26-32) pg MCHC (32-36) g/dl RDW (11.5-14.0) % Plt Count (150-450) K/mm3 MPV (7.5-11.0) fl Segmented Neutrophils (36.0-66.0) % Band Neutrophils (0.0-2.0) % Lymphocytes (Manual) (24-44) % Monocytes (Manual) (0.0-12.0) % Toxic Granulation Dohle Bodies Platelet Estimate (NORMAL) RBC Morphology Polychromasia ESR 69 H (0-20) mm/hr PT (9.95-12.35) SECONDS INR (0.8-3.0) APTT (25.3-37.0) SECONDS Sodium 134 L (137-145) mmol/L Potassium 2.9 L* (3.5-5.1) mmol/L Chloride 102 (98-107) mmol/L Carbon Dioxide 22 (22-30) mmol/L Anion Gap 13.3 (5-15) MEQ/L BUN 14 (7-17) mg/dL Creatinine 0.92 (0.52-1.04) mg/dL Estimated GFR > 60.0 ML/MIN Glucose 115 H (74-106) mg/dL Lactic Acid (0.4-2.0) Calcium 8.3 L (8.4-10.2) mg/dL Magnesium 1.4 L (1.6-2.3) mg/dL Total Bilirubin 1.00 (0.2-1.3) mg/dL AST 38 H (14-36) U/L ALT 19 (0-35) U/L Alkaline Phosphatase 97 (38-126) U/L Ammonia < 9 L (9-30) umol/L Troponin I (0.000-0.034) ng/mL Serum Total Protein 7.3 (6.3-8.2) g/dL Albumin 3.7 (3.5-5.0) g/dL Procalcitonin (0.030-0.080) ng/mL TSH 3rd Generation 0.647 (0.47-4.68) mIU/L Urine Color (YELLOW) Urine Appearance (CLEAR) Urine pH (5-6) Ur Specific [place] (1.005-1.025) Urine Protein (Negative) Urine Ketones (NEGATIVE) Urine Blood (0-5) Baldomero/ul Urine Nitrite (NEGATIVE) Urine Bilirubin (NEGATIVE) Urine Urobilinogen (0-1) mg/dL Ur Leukocyte Esterase (NEGATIVE) Urine WBC (Auto) (0-5) /HPF Urine RBC (Auto) (0-2) /HPF U Epithel Cells (Auto) (FEW) /HPF Urine Bacteria (Auto) (NEGATIVE) /HPF Granular Casts (Auto) (NEGATIVE) /LPF Urine Mucus (Auto) (NEGATIVE) /HPF Urine Culture Reflexed (NO) Urine Glucose (NEGATIVE) mg/dL Urine Opiates Level (NEGATIVE) Ur Methadone (NEGATIVE) Urine Barbiturates (NEGATIVE) Ur Phencyclidine (PCP) (NEGATIVE) Urine Amphetamine (NEGATIVE) U Benzodiazepine Level (NEGATIVE) Urine Cocaine (NEGATIVE) Urine Marijuana (THC) (NEGATIVE) Ethyl Alcohol < 10 (0-10) mg/dL Influenza Type A Ag (NEGATIVE) Influenza Type B Ag (NEGATIVE) RSV (PCR) (Negative) SARS-CoV-2 (PCR) (NEGATIVE) 06/29/20 06/29/20 06/29/20 Range/Units 23:21 23:21 23:40 WBC (4.0-10.5) K/mm3 RBC (4.1-5.4) M/mm3 Hgb (12.0-16.0) gm/dl Hct (35-47) % MCV (78-100) fl MCH (26-32) pg MCHC (32-36) g/dl RDW (11.5-14.0) % Plt Count (150-450) K/mm3 MPV (7.5-11.0) fl Segmented Neutrophils (36.0-66.0) % Band Neutrophils (0.0-2.0) % Lymphocytes (Manual) (24-44) % Monocytes (Manual) (0.0-12.0) % Toxic Granulation Dohle Bodies Platelet Estimate (NORMAL) RBC Morphology Polychromasia ESR (0-20) mm/hr PT (9.95-12.35) SECONDS INR (0.8-3.0) APTT (25.3-37.0) SECONDS Sodium (137-145) mmol/L Potassium (3.5-5.1) mmol/L Chloride (98-107) mmol/L Carbon Dioxide (22-30) mmol/L Anion Gap (5-15) MEQ/L BUN (7-17) mg/dL Creatinine (0.52-1.04) mg/dL Estimated GFR ML/MIN Glucose (74-106) mg/dL Lactic Acid (0.4-2.0) Calcium (8.4-10.2) mg/dL Magnesium (1.6-2.3) mg/dL Total Bilirubin (0.2-1.3) mg/dL AST (14-36) U/L ALT (0-35) U/L Alkaline Phosphatase (38-126) U/L Ammonia (9-30) umol/L Troponin I (0.000-0.034) ng/mL Serum Total Protein (6.3-8.2) g/dL Albumin (3.5-5.0) g/dL Procalcitonin 10.500 H* (0.030-0.080) ng/mL TSH 3rd Generation (0.47-4.68) mIU/L Urine Color MARIUM (YELLOW) Urine Appearance SLIGHTLY CLOUDY (CLEAR) Urine pH 5.0 (5-6) Ur Specific [place] 1.021 (1.005-1.025) Urine Protein 100 (Negative) Urine Ketones NEGATIVE (NEGATIVE) Urine Blood MODERATE (0-5) Baldomero/ul Urine Nitrite NEGATIVE (NEGATIVE) Urine Bilirubin NEGATIVE (NEGATIVE) Urine Urobilinogen 4 (0-1) mg/dL Ur Leukocyte Esterase NEGATIVE (NEGATIVE) Urine WBC (Auto) 11-15 (0-5) /HPF Urine RBC (Auto) 3-5 (0-2) /HPF U Epithel Cells (Auto) RARE (FEW) /HPF Urine Bacteria (Auto) RARE (NEGATIVE) /HPF Granular Casts (Auto) 0-2 (NEGATIVE) /LPF Urine Mucus (Auto) SLIGHT (NEGATIVE) /HPF Urine Culture Reflexed ORDERED SEPARATELY (NO) Urine Glucose NEGATIVE (NEGATIVE) mg/dL Urine Opiates Level NEGATIVE (NEGATIVE) Ur Methadone NEGATIVE (NEGATIVE) Urine Barbiturates NEGATIVE (NEGATIVE) Ur Phencyclidine (PCP) NEGATIVE (NEGATIVE) Urine Amphetamine NEGATIVE (NEGATIVE) U Benzodiazepine Level NEGATIVE (NEGATIVE) Urine Cocaine NEGATIVE (NEGATIVE) Urine Marijuana (THC) NEGATIVE (NEGATIVE) Ethyl Alcohol (0-10) mg/dL Influenza Type A Ag (NEGATIVE) Influenza Type B Ag (NEGATIVE) RSV (PCR) (Negative) SARS-CoV-2 (PCR) (NEGATIVE) 06/29/20 06/30/20 06/30/20 Range/Units 23:40 00:41 01:36 WBC (4.0-10.5) K/mm3 RBC (4.1-5.4) M/mm3 Hgb (12.0-16.0) gm/dl Hct (35-47) % MCV (78-100) fl MCH (26-32) pg MCHC (32-36) g/dl RDW (11.5-14.0) % Plt Count (150-450) K/mm3 MPV (7.5-11.0) fl Segmented Neutrophils (36.0-66.0) % Band Neutrophils (0.0-2.0) % Lymphocytes (Manual) (24-44) % Monocytes (Manual) (0.0-12.0) % Toxic Granulation Dohle Bodies Platelet Estimate (NORMAL) RBC Morphology Polychromasia ESR (0-20) mm/hr PT (9.95-12.35) SECONDS INR (0.8-3.0) APTT (25.3-37.0) SECONDS Sodium (137-145) mmol/L Potassium (3.5-5.1) mmol/L Chloride (98-107) mmol/L Carbon Dioxide (22-30) mmol/L Anion Gap (5-15) MEQ/L BUN (7-17) mg/dL Creatinine (0.52-1.04) mg/dL Estimated GFR ML/MIN Glucose (74-106) mg/dL Lactic Acid 1.5 (0.4-2.0) Calcium (8.4-10.2) mg/dL Magnesium (1.6-2.3) mg/dL Total Bilirubin (0.2-1.3) mg/dL AST (14-36) U/L ALT (0-35) U/L Alkaline Phosphatase (38-126) U/L Ammonia (9-30) umol/L Troponin I 0.054 H* (0.000-0.034) ng/mL Serum Total Protein (6.3-8.2) g/dL Albumin (3.5-5.0) g/dL Procalcitonin (0.030-0.080) ng/mL TSH 3rd Generation (0.47-4.68) mIU/L Urine Color (YELLOW) Urine Appearance (CLEAR) Urine pH (5-6) Ur Specific [place] (1.005-1.025) Urine Protein (Negative) Urine Ketones (NEGATIVE) Urine Blood (0-5) Baldomero/ul Urine Nitrite (NEGATIVE) Urine Bilirubin (NEGATIVE) Urine Urobilinogen (0-1) mg/dL Ur Leukocyte Esterase (NEGATIVE) Urine WBC (Auto) (0-5) /HPF Urine RBC (Auto) (0-2) /HPF U Epithel Cells (Auto) (FEW) /HPF Urine Bacteria (Auto) (NEGATIVE) /HPF Granular Casts (Auto) (NEGATIVE) /LPF Urine Mucus (Auto) (NEGATIVE) /HPF Urine Culture Reflexed (NO) Urine Glucose (NEGATIVE) mg/dL Urine Opiates Level (NEGATIVE) Ur Methadone (NEGATIVE) Urine Barbiturates (NEGATIVE) Ur Phencyclidine (PCP) (NEGATIVE) Urine Amphetamine (NEGATIVE) U Benzodiazepine Level (NEGATIVE) Urine Cocaine (NEGATIVE) Urine Marijuana (THC) (NEGATIVE) Ethyl Alcohol (0-10) mg/dL Influenza Type A Ag NEGATIVE (NEGATIVE) Influenza Type B Ag NEGATIVE (NEGATIVE) RSV (PCR) NEGATIVE (Negative) SARS-CoV-2 (PCR) NEGATIVE (NEGATIVE) 06/30/20 06/30/20 06/30/20 Range/Units 04:55 04:59 04:59 WBC 23.5 H (4.0-10.5) K/mm3 RBC 3.83 L (4.1-5.4) M/mm3 Hgb 11.1 L (12.0-16.0) gm/dl Hct 34.7 L (35-47) % MCV 90.6 (78-100) fl MCH 29.0 (26-32) pg MCHC 32.0 (32-36) g/dl RDW 15.5 H (11.5-14.0) % Plt Count 198 (150-450) K/mm3 MPV 9.9 (7.5-11.0) fl Segmented Neutrophils 86 H (36.0-66.0) % Band Neutrophils 10 H (0.0-2.0) % Lymphocytes (Manual) 4 L (24-44) % Monocytes (Manual) (0.0-12.0) % Toxic Granulation 1+ Dohle Bodies Platelet Estimate NORMAL (NORMAL) RBC Morphology NORMAL Polychromasia ESR (0-20) mm/hr PT (9.95-12.35) SECONDS INR (0.8-3.0) APTT (25.3-37.0) SECONDS Sodium (137-145) mmol/L Potassium (3.5-5.1) mmol/L Chloride (98-107) mmol/L Carbon Dioxide (22-30) mmol/L Anion Gap (5-15) MEQ/L BUN (7-17) mg/dL Creatinine (0.52-1.04) mg/dL Estimated GFR ML/MIN Glucose (74-106) mg/dL Lactic Acid 1.1 (0.4-2.0) Calcium (8.4-10.2) mg/dL Magnesium (1.6-2.3) mg/dL Total Bilirubin (0.2-1.3) mg/dL AST (14-36) U/L ALT (0-35) U/L Alkaline Phosphatase (38-126) U/L Ammonia (9-30) umol/L Troponin I 0.038 H* (0.000-0.034) ng/mL Serum Total Protein (6.3-8.2) g/dL Albumin (3.5-5.0) g/dL Procalcitonin (0.030-0.080) ng/mL TSH 3rd Generation (0.47-4.68) mIU/L Urine Color (YELLOW) Urine Appearance (CLEAR) Urine pH (5-6) Ur Specific [place] (1.005-1.025) Urine Protein (Negative) Urine Ketones (NEGATIVE) Urine Blood (0-5) Baldomero/ul Urine Nitrite (NEGATIVE) Urine Bilirubin (NEGATIVE) Urine Urobilinogen (0-1) mg/dL Ur Leukocyte Esterase (NEGATIVE) Urine WBC (Auto) (0-5) /HPF Urine RBC (Auto) (0-2) /HPF U Epithel Cells (Auto) (FEW) /HPF Urine Bacteria (Auto) (NEGATIVE) /HPF Granular Casts (Auto) (NEGATIVE) /LPF Urine Mucus (Auto) (NEGATIVE) /HPF Urine Culture Reflexed (NO) Urine Glucose (NEGATIVE) mg/dL Urine Opiates Level (NEGATIVE) Ur Methadone (NEGATIVE) Urine Barbiturates (NEGATIVE) Ur Phencyclidine (PCP) (NEGATIVE) Urine Amphetamine (NEGATIVE) U Benzodiazepine Level (NEGATIVE) Urine Cocaine (NEGATIVE) Urine Marijuana (THC) (NEGATIVE) Ethyl Alcohol (0-10) mg/dL Influenza Type A Ag (NEGATIVE) Influenza Type B Ag (NEGATIVE) RSV (PCR) (Negative) SARS-CoV-2 (PCR) (NEGATIVE) 06/30/20 06/30/20 06/30/20 Range/Units 04:59 07:45 07:45 WBC (4.0-10.5) K/mm3 RBC (4.1-5.4) M/mm3 Hgb (12.0-16.0) gm/dl Hct (35-47) % MCV (78-100) fl MCH (26-32) pg MCHC (32-36) g/dl RDW (11.5-14.0) % Plt Count (150-450) K/mm3 MPV (7.5-11.0) fl Segmented Neutrophils (36.0-66.0) % Band Neutrophils (0.0-2.0) % Lymphocytes (Manual) (24-44) % Monocytes (Manual) (0.0-12.0) % Toxic Granulation Dohle Bodies Platelet Estimate (NORMAL) RBC Morphology Polychromasia ESR (0-20) mm/hr PT (9.95-12.35) SECONDS INR (0.8-3.0) APTT (25.3-37.0) SECONDS Sodium 138 (137-145) mmol/L Potassium 3.8 D 3.6 (3.5-5.1) mmol/L Chloride 110 H (98-107) mmol/L Carbon Dioxide 20 L (22-30) mmol/L Anion Gap 11.6 (5-15) MEQ/L BUN 11 (7-17) mg/dL Creatinine 0.65 (0.52-1.04) mg/dL Estimated GFR > 60.0 ML/MIN Glucose 138 H (74-106) mg/dL Lactic Acid (0.4-2.0) Calcium 7.6 L (8.4-10.2) mg/dL Magnesium (1.6-2.3) mg/dL Total Bilirubin 0.40 (0.2-1.3) mg/dL AST 34 (14-36) U/L ALT 18 (0-35) U/L Alkaline Phosphatase 73 (38-126) U/L Ammonia (9-30) umol/L Troponin I 0.017 (0.000-0.034) ng/mL Serum Total Protein 6.4 (6.3-8.2) g/dL Albumin 3.2 L (3.5-5.0) g/dL Procalcitonin (0.030-0.080) ng/mL TSH 3rd Generation (0.47-4.68) mIU/L Urine Color (YELLOW) Urine Appearance (CLEAR) Urine pH (5-6) Ur Specific [place] (1.005-1.025) Urine Protein (Negative) Urine Ketones (NEGATIVE) Urine Blood (0-5) Baldomero/ul Urine Nitrite (NEGATIVE) Urine Bilirubin (NEGATIVE) Urine Urobilinogen (0-1) mg/dL Ur Leukocyte Esterase (NEGATIVE) Urine WBC (Auto) (0-5) /HPF Urine RBC (Auto) (0-2) /HPF U Epithel Cells (Auto) (FEW) /HPF Urine Bacteria (Auto) (NEGATIVE) /HPF Granular Casts (Auto) (NEGATIVE) /LPF Urine Mucus (Auto) (NEGATIVE) /HPF Urine Culture Reflexed (NO) Urine Glucose (NEGATIVE) mg/dL Urine Opiates Level (NEGATIVE) Ur Methadone (NEGATIVE) Urine Barbiturates (NEGATIVE) Ur Phencyclidine (PCP) (NEGATIVE) Urine Amphetamine (NEGATIVE) U Benzodiazepine Level (NEGATIVE) Urine Cocaine (NEGATIVE) Urine Marijuana (THC) (NEGATIVE) Ethyl Alcohol (0-10) mg/dL Influenza Type A Ag (NEGATIVE) Influenza Type B Ag (NEGATIVE) RSV (PCR) (Negative) SARS-CoV-2 (PCR) (NEGATIVE) - Radiology Impressions Radiology Exams & Impressions: Radiology Procedures Category Date Time Status CHEST 1 VIEW (PORTABLE) Stat Exams 06/29/20 22:38 Completed HEAD WITHOUT CONTRAST [CT] Stat Exams 06/29/20 22:38 Completed - Other Procedures and Tests Respiratory Therapy 06/30/20 01:18 Oxygen Nasal Cannula 5 lpm 06/30/20 03:50 Respiratory Therapy Assessment DAILY Assessment/Plan (1) Sepsis Current Visit: Yes Status: Acute Assessment & Plan: pneumonia appears to be obvious source, treat for CAP (2) Pneumonia Current Visit: Yes Status: Acute Assessment & Plan: patient started on levaquin and rocephin in the ER, clinically appears to have pneuomnia and no significant risk factors such as recent hospitalization etc. will change to rocephin/zithromax Code(s): J18.9 - PNEUMONIA, UNSPECIFIED ORGANISM (3) Hypokalemia Current Visit: Yes Status: Acute Assessment & Plan: replaced Code(s): E87.6 - HYPOKALEMIA
[2020-06-30] MEDS: Sodium Chloride 0.9% W/ 20 mEq KCl/LITER 1,000 ML IV SCH ×2 (10:19→20:50)
[2020-06-30] MEDS: ENOXAPARIN SODIUM SQ SCH (10:20)
[2020-06-30] MEDS: Zithromax 500 MG/ 250 ML NaCl Premix 500 MG/250 ML IVPB IV SCH (10:20)
[2020-06-30] MEDS: Cymbalta 30 MG Capsule PO SCH (10:51)
[2020-06-30] MEDS: SYNTHROID 150 MCG PO SCH (10:51)
[2020-06-30] MEDS: Lotensin 10 MG PO SCH (10:51)
[2020-06-30] MEDS: ECOTRIN 81 MG PO SCH (10:52)
[2020-06-30] MEDS: LYRICA 150MG PO SCH ×2 (10:52→21:21)
[2020-06-30] MEDS: Tegretol 200 MG PO SCH ×2 (15:49→21:21)
[2020-06-30] MEDS ORDERED: ROCEPHIN 1 Gm-D5w 50 ml Bag** 1 G/50 ML IVPB IV ONE (21:04)
[2020-06-30] MEDS: ROCEPHIN 1 Gm-D5w 50 ml Bag** 1 G/50 ML IVPB IV SCH (21:20)
[2020-06-30] MEDS ORDERED: LEVOFLOXACIN 750MG/150ML D5W 750 MG/150 ML BAG IV SCH (22:00)
[2020-06-30] MEDS ORDERED: PREGABALIN 300 MG PO SCH (22:00)
[2020-07-01] MEDS: DUONEB 0.5-3 MG/3 ml Neb IH SCH ×4 (01:57→19:27)
[2020-07-01] MEDS: Sodium Chloride 0.9% W/ 20 mEq KCl/LITER 1,000 ML IV SCH ×2 (05:56→15:22)
[2020-07-01 06:03] LABS: BASOPHIL % 0.2 % (0.0-0.4); Basophil (Absolute #) 0.02 (0-0.4); Eosinophil % 0.5 % (0.00-5.0); Eosinophil (Absolute #) 0.06 (0-0.5); Hematocrit 29.3 % (35-47); Hemoglobin 9.1 gm/dl (12.0-16.0); Lymphocyte (Absolute #) 1.93 (1.0-4.6); Lymphocytes % 15.1 % (24.0-44.0); Mean Corpuscular Hemoglobin 28.9 pg (26-32); Mean Corpuscular Hgb Concent. 31.1 g/dl (32-36); Mean Platelet Volume 9.6 fl (7.5-11.0); Monocyte (Absolute #) 0.63 (0.0-1.3); Monocytes % 4.9 % (0.0-12.0); Neutrophil % 79.3 % (36.0-66.0); Platelet Count 181 K/mm3 (150-450); Red Blood Count 3.15 M/mm3 (4.1-5.4); White Blood Count 12.7 K/mm3 (4.0-10.5)
[2020-07-01 06:25] LABS: ANION GAP 9.8 MEQ/L (5-15); BLOOD UREA NITROGEN 15 mg/dL (7-17); CHLORIDE 110 mmol/L (98-107); Calcium 8.1 mg/dL (8.4-10.2); Carbon Dioxide 24 mmol/L (22-30); Creatinine 1 0.63 mg/dL (0.52-1.04); EST GLOMERULAR FILTRATION RATE > 60.0 ML/MIN; Glucose 96 mg/dL (74-106); Potassium 3.9 mmol/L (3.5-5.1); SODIUM 140 mmol/L (137-145)
--- NOTE | 2020-07-01 07:45 | PCM.NOTE ---
Date and Time: 07/01/20 0743 Subjective Assessment: patient reports she is feeling much better today, she is tolerating po intake and her cough is improving. she feels like she is much more alert Objective Exam General Appearance: no apparent distress, alert Respiratory Exam: crackles/rales (rt lung base) Cardiovascular Exam: regular rate/rhythm, normal heart sounds Gastrointestinal/Abdomen Exam: soft, No tenderness, No mass Extremity Exam: normal inspection, normal range of motion OBJECTIVE DATA Vital Signs: Vital Signs - 24 hr Temp Pulse Resp BP Pulse Ox 07/01/20 07:14 88 20 92 L 07/01/20 06:45 98.3 F 85 16 131/69 95 07/01/20 03:38 98.6 F 82 18 115/66 97 07/01/20 01:58 76 20 92 L 06/30/20 23:48 98.7 F 87 22 109/57 94 L 06/30/20 19:54 82 18 93 L 06/30/20 19:39 97.5 F 82 19 98/51 94 L 06/30/20 16:00 97.9 F 75 18 110/57 96 06/30/20 13:19 76 18 92 L 06/30/20 12:00 98.8 F 97 H 20 110/58 97 Pain Assessment - Last Documented Pain Intensity 0 Intake and Output: Intake & Output 06/28/20 06/29/20 06/30/20 07/01/20 11:59 11:59 11:59 11:59 Intake Total 840 4241 Output Total 1600 890 Balance -760 3351 Weight 90.591 kg Lab Results: Lab Results-Last 24 Hours 06/30/20 06/30/20 06/30/20 Range/Units 07:45 07:45 10:45 WBC (4.0-10.5) K/mm3 RBC (4.1-5.4) M/mm3 Hgb (12.0-16.0) gm/dl Hct (35-47) % MCV (78-100) fl MCH (26-32) pg MCHC (32-36) g/dl RDW (11.5-14.0) % Plt Count (150-450) K/mm3 MPV (7.5-11.0) fl Gran % (36.0-66.0) % Eos # (Auto) (0-0.5) Absolute Lymphs (auto) (1.0-4.6) Absolute Monos (auto) (0.0-1.3) Lymphocytes % (24.0-44.0) % Monocytes % (0.0-12.0) % Eosinophils % (0.00-5.0) % Basophils % (0.0-0.4) % Absolute Granulocytes (1.4-6.9) Basophils # (0-0.4) Sodium (137-145) mmol/L Potassium 3.6 (3.5-5.1) mmol/L Chloride (98-107) mmol/L Carbon Dioxide (22-30) mmol/L Anion Gap (5-15) MEQ/L BUN (7-17) mg/dL Creatinine (0.52-1.04) mg/dL Estimated GFR ML/MIN Glucose (74-106) mg/dL Hemoglobin A1c (4.5-6.0) % Calcium (8.4-10.2) mg/dL Troponin I 0.017 < 0.012 (0.000-0.034) ng/mL 06/30/20 07/01/20 07/01/20 Range/Units 10:45 05:28 05:30 WBC 12.7 H (4.0-10.5) K/mm3 RBC 3.15 L (4.1-5.4) M/mm3 Hgb 9.1 L (12.0-16.0) gm/dl Hct 29.3 L (35-47) % MCV 93.0 (78-100) fl MCH 28.9 (26-32) pg MCHC 31.1 L (32-36) g/dl RDW 16.0 H (11.5-14.0) % Plt Count 181 (150-450) K/mm3 MPV 9.6 (7.5-11.0) fl Gran % 79.3 H (36.0-66.0) % Eos # (Auto) 0.06 (0-0.5) Absolute Lymphs (auto) 1.93 (1.0-4.6) Absolute Monos (auto) 0.63 (0.0-1.3) Lymphocytes % 15.1 L (24.0-44.0) % Monocytes % 4.9 (0.0-12.0) % Eosinophils % 0.5 (0.00-5.0) % Basophils % 0.2 (0.0-0.4) % Absolute Granulocytes 10.10 H (1.4-6.9) Basophils # 0.02 (0-0.4) Sodium 140 (137-145) mmol/L Potassium 3.9 (3.5-5.1) mmol/L Chloride 110 H (98-107) mmol/L Carbon Dioxide 24 (22-30) mmol/L Anion Gap 9.8 (5-15) MEQ/L BUN 15 (7-17) mg/dL Creatinine 0.63 (0.52-1.04) mg/dL Estimated GFR > 60.0 ML/MIN Glucose 96 (74-106) mg/dL Hemoglobin A1c 5.65 (4.5-6.0) % Calcium 8.1 L (8.4-10.2) mg/dL Troponin I (0.000-0.034) ng/mL Radiology Exams: Radiology Procedures Category Date Time Status CHEST 1 VIEW (PORTABLE) Stat Exams 06/29/20 22:38 Completed HEAD WITHOUT CONTRAST [CT] Stat Exams 06/29/20 22:38 Completed Multi-Disciplinary Progress Notes: Multi-Disciplinary Progress Notes 06/30/20 20:32 Respiratory Note by Garry Fleming 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 I INCREASED PT FROM 3LPM TO 3.5LPM. PT STATES SHE IS NOT SOB, NO DISTRESS NOTED. INFORMED NURSING. Initialized on 06/30/20 20:32 - END OF NOTE Assessment/Plan (1) Sepsis Current Visit: Yes Status: Acute (2) Pneumonia Current Visit: Yes Status: Acute Assessment & Plan: on rocephin/zithromax, will continue. wbc improving and clinically improving Code(s): J18.9 - PNEUMONIA, UNSPECIFIED ORGANISM (3) Hypokalemia Current Visit: Yes Status: Acute Code(s): E87.6 - HYPOKALEMIA (4) UTI (urinary tract infection) Current Visit: Yes Status: Acute Assessment & Plan: urine culture with gram negative bacteria, ID pending Code(s): N39.0 - URINARY TRACT INFECTION, SITE NOT SPECIFIED
[2020-07-01] MEDS: Lotensin 10 MG PO SCH (09:11)
[2020-07-01] MEDS: Cymbalta 30 MG Capsule PO SCH (09:12)
[2020-07-01] MEDS: Zithromax 500 MG/ 250 ML NaCl Premix 500 MG/250 ML IVPB IV SCH (09:12)
[2020-07-01] MEDS: ENOXAPARIN SODIUM SQ SCH (09:12)
[2020-07-01] MEDS: LYRICA 150MG PO SCH ×2 (09:12→21:15)
[2020-07-01] MEDS: ECOTRIN 81 MG PO SCH (09:12)
[2020-07-01] MEDS: SYNTHROID 150 MCG PO SCH (09:12)
[2020-07-01] MEDS: Tegretol 200 MG PO SCH ×3 (09:13→21:15)
[2020-07-01] MEDS ORDERED: BABY ASPIRIN 81 MG CHEW PO SCH (10:00)
[2020-07-01] MEDS ORDERED: BENAZEPRIL HCL 40 MG PO SCH (10:00)
[2020-07-01] MEDS ORDERED: MILK OF MAGNESIA 30 ML PO ONE (12:15)
[2020-07-01] MEDS: ROCEPHIN 1 Gm-D5w 50 ml Bag** 1 G/50 ML IVPB IV SCH (21:15)
[2020-07-02] MEDS: DUONEB 0.5-3 MG/3 ml Neb IH SCH ×4 (00:12→19:20)
[2020-07-02] MEDS ORDERED: Lasix 20 MG/2 ML IV ONE (00:30)
[2020-07-02] MEDS: xanAX 0.25 MG PO SCH ×3 (00:46→20:21)
[2020-07-02 06:07] LABS: Hematocrit 32.1 % (35-47); Hemoglobin 9.8 gm/dl (12.0-16.0); Mean Corpuscular Hemoglobin 28.1 pg (26-32); Mean Corpuscular Hgb Concent. 30.5 g/dl (32-36); Mean Platelet Volume 9.9 fl (7.5-11.0); Platelet Count 227 K/mm3 (150-450); Red Blood Count 3.49 M/mm3 (4.1-5.4); Red Cell Distribution Width 16.3 % (11.5-14.0)
--- NOTE | 2020-07-02 06:29 | PCM.NOTE ---
Date and Time: 07/02/20626 Subjective Assessment: patient has had increased oxygen requirement overnight, crackles per nursing, IV locked and given lasix with significant output. requiring 6L oxygen but facemask was not on when I entered the room this morning. Objective Exam General Appearance: no apparent distress, alert Respiratory Exam: crackles/rales Cardiovascular Exam: regular rate/rhythm, normal heart sounds Gastrointestinal/Abdomen Exam: soft, No tenderness, No mass Extremity Exam: normal inspection, normal range of motion OBJECTIVE DATA Vital Signs: Vital Signs - 24 hr Temp Pulse Resp BP Pulse Ox 07/02/20 03:17 98.2 F 89 23 149/80 94 L 07/02/20 00:12 89 22 86 L 07/01/20 23:58 98.8 F 94 H 20 176/88 91 L 07/01/20 20:00 99.1 F 87 23 157/81 93 L 07/01/20 19:27 95 H 25 H 88 L 07/01/20 16:00 98.1 F 89 16 130/77 93 L 07/01/20 12:40 81 18 94 L 07/01/20 12:00 98.5 F 79 18 129/76 95 07/01/20 09:15 90 L 07/01/20 07:14 88 20 92 L 07/01/20 06:45 98.3 F 85 16 131/69 95 Pain Assessment - Last Documented Pain Intensity 0 Intake and Output: Intake & Output 06/29/20 06/30/20 07/01/20 07/02/20 11:59 11:59 11:59 11:59 Intake Total 840 4721 3242 Output Total 2695 018 6183 Balance -760 3831 342 Weight 90.591 kg 90.591 kg 91.8 kg Lab Results: Lab Results-Last 24 Hours 06/29/20 07/01/20 07/02/20 Range/Units 23:20 05:28 05:40 WBC 11.0 H (4.0-10.5) K/mm3 RBC 3.49 L (4.1-5.4) M/mm3 Hgb 9.8 L (12.0-16.0) gm/dl Hct 32.1 L (35-47) % MCV 92.0 (78-100) fl MCH 28.1 (26-32) pg MCHC 30.5 L (32-36) g/dl RDW 16.3 H (11.5-14.0) % Plt Count 227 (150-450) K/mm3 MPV 9.9 (7.5-11.0) fl Sodium 140 (137-145) mmol/L Potassium 3.9 (3.5-5.1) mmol/L Chloride 110 H (98-107) mmol/L Carbon Dioxide 24 (22-30) mmol/L Anion Gap 9.8 (5-15) MEQ/L BUN 15 (7-17) mg/dL Creatinine 0.63 (0.52-1.04) mg/dL Estimated GFR > 60.0 ML/MIN Glucose 96 (74-106) mg/dL Calcium 8.1 L (8.4-10.2) mg/dL C-Reactive Prot, Quant 427 H (0-10) mg/L Radiology Exams: Radiology Procedures Category Date Time Status CHEST 1 VIEW (PORTABLE) Routine Exams 07/02/20 07:00 Ordered Multi-Disciplinary Progress Notes: Multi-Disciplinary Progress Notes 07/02/20 00:33 Respiratory Note by Garry Fleming NURSING CALLED TO STATE PT HAD GOTTEN UP TO BATHROOM AND BECAME SOB AND SATS DROPPED. NURSING INCREASED PT UP TO 6LPM. PT SATS HAD RECOVERED BUT THEN DROPPED AGAIN. PT VERY ANXIOUS AT THIS POINT. I GAVE PT NEB TX ON 7LPM O2 AND SATS RECOVERED TO 98%. POST TX I PLACED PT ON AN OXYMASK AT 6LPM AND SATS REMAINED AT 93%. I ASKED NURSING TO INQUIRE ABOUT ANTI ANXIETY MEDS FOR PT SHE DOES TAKE THESE AT WELL ASKING IF WE CAN BACK OFF/SHUT OFF FLUIDS. PT IS RESTING WELL ON 6LPM OXYMASK AT THIS TIME. CALL LIGHT W/I REACH. Initialized on 07/02/20 00:33 - END OF NOTE Assessment/Plan (1) Sepsis Current Visit: Yes Status: Acute (2) Pneumonia Current Visit: Yes Status: Acute Assessment & Plan: on rocephin/zithromax Code(s): J18.9 - PNEUMONIA, UNSPECIFIED ORGANISM (3) Hypokalemia Current Visit: Yes Status: Acute Code(s): E87.6 - HYPOKALEMIA (4) UTI (urinary tract infection) Current Visit: Yes Status: Acute Assessment & Plan: e coli sens to rocephin Code(s): N39.0 - URINARY TRACT INFECTION, SITE NOT SPECIFIED
[2020-07-02 07:03] LABS: BLOOD UREA NITROGEN 9 mg/dL (7-17); CHLORIDE 102 mmol/L (98-107); Calcium 8.6 mg/dL (8.4-10.2); Carbon Dioxide 28 mmol/L (22-30); Creatinine 1 0.56 mg/dL (0.52-1.04); EST GLOMERULAR FILTRATION RATE > 60.0 ML/MIN; Glucose 89 mg/dL (74-106); MAGNESIUM 1.9 mg/dL (1.6-2.3); Potassium 3.6 mmol/L (3.5-5.1); SODIUM 137 mmol/L (137-145)
[2020-07-02 08:08] LABS: BAND 2 % (0.0-2.0); Eosinophil 2 % (0.00-3.0); Lymphocytes 20 % (24-44); Monocyte 2 % (0.0-12.0); Neutrophils 74 % (36.0-66.0); Platelet Estimate NORMAL (NORMAL); Total Cells Counted 100
[2020-07-02 08:09] LABS: Hypochromia 1+
--- NOTE | 2020-07-02 08:50 | XRAY ---
Indication: Follow-up pneumonia. Comparison: June 29, 2020. Portable apical lordotic chest demonstrates new diffuse bilateral hazy airspace disease without consolidation/large effusion. Stable right base infiltrate/atelectasis. Heart not enlarged.
[2020-07-02] MEDS: Zithromax 500 MG/ 250 ML NaCl Premix 500 MG/250 ML IVPB IV SCH (09:24)
[2020-07-02] MEDS: Cymbalta 30 MG Capsule PO SCH (09:26)
[2020-07-02] MEDS: LYRICA 150MG PO SCH ×2 (09:26→21:50)
[2020-07-02] MEDS: Lotensin 10 MG PO SCH (09:26)
[2020-07-02] MEDS: ECOTRIN 81 MG PO SCH (09:27)
[2020-07-02] MEDS: SYNTHROID 150 MCG PO SCH (09:27)
[2020-07-02] MEDS: Tegretol 200 MG PO SCH ×3 (09:27→21:50)
[2020-07-02] MEDS: ENOXAPARIN SODIUM SQ SCH (09:27)
[2020-07-02] MEDS: Lasix 20 MG/2 ML IV SCH ×2 (09:29→18:58)
[2020-07-02] MEDS: Klor Con 10 MEQ PO SCH ×2 (09:29→21:50)
[2020-07-02] MEDS: COREG 12.5 MG PO SCH (21:50)
[2020-07-02] MEDS: ROCEPHIN 1 Gm-D5w 50 ml Bag** 1 G/50 ML IVPB IV SCH (21:51)
[2020-07-03] MEDS: DUONEB 0.5-3 MG/3 ml Neb IH SCH ×5 (00:48→19:36)
[2020-07-03 05:10] LABS: Hematocrit 27.7 % (35-47); Hemoglobin 8.8 gm/dl (12.0-16.0); Mean Cell Volume 90.8 fl (78-100); Mean Corpuscular Hemoglobin 28.9 pg (26-32); Mean Corpuscular Hgb Concent. 31.8 g/dl (32-36); Mean Platelet Volume 9.8 fl (7.5-11.0); Platelet Count 222 K/mm3 (150-450); Red Blood Count 3.05 M/mm3 (4.1-5.4); White Blood Count 11.2 K/mm3 (4.0-10.5)
[2020-07-03 05:19] LABS: ANION GAP 9.7 MEQ/L (5-15); BLOOD UREA NITROGEN 10 mg/dL (7-17); CHLORIDE 97 mmol/L (98-107); Calcium 8.1 mg/dL (8.4-10.2); Carbon Dioxide 31 mmol/L (22-30); Creatinine 1 0.58 mg/dL (0.52-1.04); EST GLOMERULAR FILTRATION RATE > 60.0 ML/MIN; Glucose 100 mg/dL (74-106); MAGNESIUM 1.8 mg/dL (1.6-2.3); Potassium 3.3 mmol/L (3.5-5.1); SODIUM 134 mmol/L (137-145)
--- NOTE | 2020-07-03 08:37 | PCM.NOTE ---
Date and Time: 07/03/20 08 Subjective Assessment: Pt feeling "great!" today. On O2, high-flow at 50%. Had lasix yesterday for some fluid overload. Ranulfo po. - Review of Systems Constitutional: No Fever Respiratory: Short Of Breath Objective Exam General Appearance: no apparent distress, alert Neurologic Exam: oriented x 3, cooperative Skin Exam: normal color, warm, dry, No rash Ears, Nose, Throat Exam: moist mucous membranes Neck Exam: normal inspection Respiratory Exam: diminished breath sounds, crackles/rales (faint, LLL), No rhonchi, No wheezing Cardiovascular Exam: regular rate/rhythm, normal heart sounds, No murmur Gastrointestinal/Abdomen Exam: soft, normal bowel sounds, No tenderness, No distention, No mass, No guarding, No rebound Extremity Exam: normal inspection, No pedal edema, No swelling Back Exam: normal inspection, No rash OBJECTIVE DATA Vital Signs: Vital Signs - 24 hr Temp Pulse Resp BP Pulse Ox 07/03/20 08:14 82 18 91 L 07/03/20 07:24 98.2 F 76 16 132/66 95 07/03/20 05:00 98.0 F 81 18 171/57 93 L 07/03/20 03:12 81 18 93 L 07/03/20 00:48 94 L 07/03/20 00:16 90 20 172/85 93 L 07/02/20 19:56 98.9 F 80 18 186/86 98 07/02/20 19:22 80 18 98 07/02/20 17:00 97.8 F 85 17 180/75 98 07/02/20 13:17 134/74 07/02/20 12:46 85 22 95 07/02/20 11:00 97.3 F 82 15 180/92 98 Oxygen-Last 24 hours Oxygen Flowrate (L/min)-RT 30 Oxygen Flowrate (L/min)-RT 30 Oxygen Flowrate (L/min)-RT 30 Pain Assessment - Last Documented Pain Intensity 0 Intake and Output: Intake & Output 06/30/20 07/01/20 07/02/20 07/03/20 11:59 11:59 11:59 11:59 Intake Total 840 4721 3242 600 Output Total 0588 455 4869 1700 Balance -760 1391 -158 -1100 Weight 90.591 kg 90.591 kg 91.8 kg 90.8 kg Lab Results: Lab Results-Last 24 Hours 07/03/20 07/03/20 Range/Units 04:35 04:35 WBC 11.2 H (4.0-10.5) K/mm3 RBC 3.05 L (4.1-5.4) M/mm3 Hgb 8.8 L (12.0-16.0) gm/dl Hct 27.7 L (35-47) % MCV 90.8 (78-100) fl MCH 28.9 (26-32) pg MCHC 31.8 L (32-36) g/dl RDW 15.0 H (11.5-14.0) % Plt Count 222 (150-450) K/mm3 MPV 9.8 (7.5-11.0) fl Sodium 134 L (137-145) mmol/L Potassium 3.3 L (3.5-5.1) mmol/L Chloride 97 L (98-107) mmol/L Carbon Dioxide 31 H (22-30) mmol/L Anion Gap 9.7 (5-15) MEQ/L BUN 10 (7-17) mg/dL Creatinine 0.58 (0.52-1.04) mg/dL Estimated GFR > 60.0 ML/MIN Glucose 100 (74-106) mg/dL Calcium 8.1 L (8.4-10.2) mg/dL Magnesium 1.8 (1.6-2.3) mg/dL Radiology Exams: Radiology Procedures Category Date Time Status CHEST 1 VIEW (PORTABLE) Routine Exams 07/02/20 07:00 Completed Multi-Disciplinary Progress Notes: Multi-Disciplinary Progress Notes 07/02/20 14:15 Case Management Note by Ayesha Lopez PATIENT ACUTELY ILL- WILL DISCUSS DC NEEDS/PLANS WHEN PATIENT MORE STABLE AND CLOSER TO DC Initialized on 07/02/20 14:15 - END OF NOTE Assessment/Plan (1) Sepsis Current Visit: Yes Status: Acute Qualifiers: Sepsis type: sepsis due to unspecified organism Sepsis acute organ dysfunction status: without acute organ dysfunction Qualified Code(s): A41.9 - Sepsis, unspecified organism Assessment & Plan: Doing much better; does need lower O2 requirement before being discharged to home. (2) Pneumonia Current Visit: Yes Status: Acute Code(s): J18.9 - PNEUMONIA, UNSPECIFIED ORGANISM (3) UTI (urinary tract infection) Current Visit: Yes Status: Acute Qualifiers: Urinary tract infection type: acute cystitis Assessment & Plan: Rocephin day #4, doing much better Code(s): N39.0 - URINARY TRACT INFECTION, SITE NOT SPECIFIED (4) Hypokalemia Current Visit: Yes Status: Acute Assessment & Plan: K+ 3.3 this morning. Code(s): E87.6 - HYPOKALEMIA (5) DVT prophylaxis Current Visit: Yes Status: Acute Code(s): Z29.9 - ENCOUNTER FOR PROPHYLACTIC MEASURES, UNSPECIFIED (6) Fluid/electrolyte/nutrition Current Visit: Yes Status: Acute Assessment & Plan: tolerating po
[2020-07-03 08:50] LABS: BAND 1 % (0.0-2.0); Eosinophil 2 % (0.00-3.0); Lymphocytes 11 % (24-44); Metamyelocyte 1 %; Monocyte 7 % (0.0-12.0); Myelocyte 2 %; Neutrophils 76 % (36.0-66.0); Total Cells Counted 100
[2020-07-03 08:51] LABS: Platelet Estimate NORMAL (NORMAL)
[2020-07-03 08:52] LABS: ANISOCYTOSIS 1+; Microcytosis 1+; Toxic Granulation 2+
[2020-07-03] MEDS: ECOTRIN 81 MG PO SCH (09:23)
[2020-07-03] MEDS: Lotensin 10 MG PO SCH (09:23)
[2020-07-03] MEDS: SYNTHROID 150 MCG PO SCH (09:23)
[2020-07-03] MEDS: Cymbalta 30 MG Capsule PO SCH (09:23)
[2020-07-03] MEDS: Zithromax 500 MG/ 250 ML NaCl Premix 500 MG/250 ML IVPB IV SCH (09:23)
[2020-07-03] MEDS: LYRICA 150MG PO SCH ×2 (09:24→21:15)
[2020-07-03] MEDS: Lasix 20 MG/2 ML IV SCH ×2 (09:24→16:56)
[2020-07-03] MEDS: COREG 12.5 MG PO SCH ×2 (09:24→21:18)
[2020-07-03] MEDS: Klor Con 10 MEQ PO SCH ×2 (09:24→21:19)
[2020-07-03] MEDS: Tegretol 200 MG PO SCH ×3 (09:24→21:21)
[2020-07-03] MEDS: ENOXAPARIN SODIUM SQ SCH (09:24)
[2020-07-03] MEDS: ROCEPHIN 1 Gm-D5w 50 ml Bag** 1 G/50 ML IVPB IV SCH (21:18)
[2020-07-03] MEDS: xanAX 0.25 MG PO SCH (21:19)
[2020-07-04] MEDS: DUONEB 0.5-3 MG/3 ml Neb IH SCH ×4 (00:31→18:39)
--- NOTE | 2020-07-04 07:24 | PCM.NOTE ---
Date and Time: 07/04/20722 Subjective Assessment: patient feeling much better but still requiring 25L flow 50% FiO2 on high flow oxygen, she wants to go home Objective Exam General Appearance: no apparent distress, alert Neurologic Exam: alert, oriented x 3 Respiratory Exam: rhonchi (minimal right base, otherwise diminished) Cardiovascular Exam: regular rate/rhythm, normal heart sounds Gastrointestinal/Abdomen Exam: soft, No tenderness, No mass Extremity Exam: normal inspection, normal range of motion OBJECTIVE DATA Vital Signs: Vital Signs - 24 hr Temp Pulse Resp BP Pulse Ox 07/04/20 07:13 86 18 90 L 07/04/20 03:59 98.9 F 68 20 111/59 93 L 07/04/20 00:39 67 20 87 L 07/04/20 00:07 98.0 F 68 15 127/67 97 07/03/20 20:58 98.2 F 69 20 110/57 94 L 07/03/20 19:40 66 14 92 L 07/03/20 16:01 97.9 F 66 18 116/60 94 L 07/03/20 12:40 65 18 91 L 07/03/20 11:56 98.7 F 78 18 101/52 88 L 07/03/20 08:14 82 18 91 L 07/03/20 07:24 98.2 F 76 16 132/66 95 Pain Assessment - Last Documented Pain Intensity 2 Intake and Output: Intake & Output 07/01/20 07/02/20 07/03/20 07/04/20 11:59 11:59 11:59 11:59 Intake Total 4721 3242 600 Output Total 890 4200 2450 1650 Balance 3831 -958 -1850 -1650 Weight 90.591 kg 91.8 kg 90.8 kg 87.8 kg Lab Results: Lab Results-Last 24 Hours 07/03/20 Range/Units 04:35 WBC 11.2 H (4.0-10.5) K/mm3 RBC 3.05 L (4.1-5.4) M/mm3 Hgb 8.8 L (12.0-16.0) gm/dl Hct 27.7 L (35-47) % MCV 90.8 (78-100) fl MCH 28.9 (26-32) pg MCHC 31.8 L (32-36) g/dl RDW 15.0 H (11.5-14.0) % Plt Count 222 (150-450) K/mm3 MPV 9.8 (7.5-11.0) fl Segmented Neutrophils 76 H (36.0-66.0) % Band Neutrophils 1 (0.0-2.0) % Lymphocytes (Manual) 11 L (24-44) % Monocytes (Manual) 7 (0.0-12.0) % Eosinophils (Manual) 2 (0.00-3.0) % Metamyelocytes 1 % Myelocytes 2 % Toxic Granulation 2+ Platelet Estimate NORMAL (NORMAL) RBC Morphology ABNORMAL Anisocytosis 1+ Microcytosis 1+ Smear Path Review Radiology Exams: Radiology Procedures Category Date Time Status CHEST 1 VIEW (PORTABLE) Routine Exams 07/02/20 07:00 Completed CHEST 1 VIEW (PORTABLE) Routine Exams 07/04/20 07:22 Ordered Multi-Disciplinary Progress Notes: Multi-Disciplinary Progress Notes 07/03/20 11:55 Case Management Note by Ayesha Lopez PATIENT STILL ACUTELY ILL ON HIGH FLOW- WILL CONTINUE TO FOLLOW TO DEVELOP DC PLAN WHEN READY Initialized on 07/03/20 11:55 - END OF NOTE Assessment/Plan (1) Sepsis Current Visit: Yes Status: Acute Qualifiers: Sepsis type: sepsis due to unspecified organism Sepsis acute organ dysfunction status: without acute organ dysfunction Qualified Code(s): A41.9 - Sepsis, unspecified organism (2) Pneumonia Current Visit: Yes Status: Acute Assessment & Plan: improved other than oxygen requirement, will consult pulm Code(s): J18.9 - PNEUMONIA, UNSPECIFIED ORGANISM (3) Hypokalemia Current Visit: Yes Status: Acute Code(s): E87.6 - HYPOKALEMIA (4) UTI (urinary tract infection) Current Visit: Yes Status: Acute Qualifiers: Urinary tract infection type: acute cystitis Assessment & Plan: on rocephin, sens Code(s): N39.0 - URINARY TRACT INFECTION, SITE NOT SPECIFIED
[2020-07-04 08:19] LABS: Hematocrit 28.6 % (35-47); Mean Corpuscular Hemoglobin 28.9 pg (26-32); Mean Corpuscular Hgb Concent. 31.5 g/dl (32-36); Mean Platelet Volume 9.8 fl (7.5-11.0); Platelet Count 275 K/mm3 (150-450); Red Blood Count 3.11 M/mm3 (4.1-5.4); Red Cell Distribution Width 15.1 % (11.5-14.0); White Blood Count 11.9 K/mm3 (4.0-10.5)
--- NOTE | 2020-07-04 08:41 | XRAY ---
Indication: CHF. Pneumonia. Comparison: July 02, 2020. Portable chest demonstrates moderate clearing of bilateral airspace opacities with minimal residual. Worsening right base infiltrate/atelectasis and new tiny bibasilar effusions. Heart is not enlarged.
[2020-07-04 09:19] LABS: BAND 2 % (0.0-2.0); Eosinophil 2 % (0.00-3.0); Lymphocytes 17 % (24-44); Monocyte 11 % (0.0-12.0); Myelocyte 4 %; Neutrophils 64 % (36.0-66.0); Nucleated Red Blood Cell 1 %; Total Cells Counted 100
[2020-07-04 09:22] LABS: Platelet Estimate NORMAL (NORMAL)
[2020-07-04 09:23] LABS: ANISOCYTOSIS 1+; Microcytosis 1+; Toxic Granulation 2+
[2020-07-04 09:25] LABS: ANION GAP 9.9 MEQ/L (5-15); BLOOD UREA NITROGEN 14 mg/dL (7-17); CHLORIDE 99 mmol/L (98-107); Calcium 8.5 mg/dL (8.4-10.2); Carbon Dioxide 31 mmol/L (22-30); Creatinine 1 0.53 mg/dL (0.52-1.04); EST GLOMERULAR FILTRATION RATE > 60.0 ML/MIN; Glucose 95 mg/dL (74-106); Potassium 3.6 mmol/L (3.5-5.1); SODIUM 136 mmol/L (137-145)
[2020-07-04] MEDS: ECOTRIN 81 MG PO SCH (10:08)
[2020-07-04] MEDS: Klor Con 10 MEQ PO SCH ×2 (10:08→22:12)
[2020-07-04] MEDS: Cymbalta 30 MG Capsule PO SCH (10:08)
[2020-07-04] MEDS: LYRICA 150MG PO SCH ×2 (10:08→22:11)
[2020-07-04] MEDS: ENOXAPARIN SODIUM SQ SCH (10:08)
[2020-07-04] MEDS: SYNTHROID 150 MCG PO SCH (10:08)
[2020-07-04] MEDS: Lotensin 10 MG PO SCH (10:08)
[2020-07-04] MEDS: COREG 12.5 MG PO SCH ×2 (10:09→22:12)
[2020-07-04] MEDS: Zithromax 500 MG/ 250 ML NaCl Premix 500 MG/250 ML IVPB IV SCH (10:09)
[2020-07-04] MEDS: Lasix 20 MG/2 ML IV SCH ×2 (10:09→17:10)
[2020-07-04] MEDS: Tegretol 200 MG PO SCH ×3 (10:09→22:11)
[2020-07-04] MEDS: ROCEPHIN 1 Gm-D5w 50 ml Bag** 1 G/50 ML IVPB IV SCH (22:11)
[2020-07-05] MEDS: DUONEB 0.5-3 MG/3 ml Neb IH SCH ×3 (01:27→12:33)
[2020-07-05 04:41] LABS: Hematocrit 29.3 % (35-47); Hemoglobin 9.1 gm/dl (12.0-16.0); Mean Corpuscular Hemoglobin 28.9 pg (26-32); Mean Corpuscular Hgb Concent. 31.1 g/dl (32-36); Mean Platelet Volume 9.6 fl (7.5-11.0); Platelet Count 340 K/mm3 (150-450); Red Blood Count 3.15 M/mm3 (4.1-5.4); Red Cell Distribution Width 15.1 % (11.5-14.0); White Blood Count 11.5 K/mm3 (4.0-10.5)
[2020-07-05 05:03] LABS: ANION GAP 10.3 MEQ/L (5-15); BLOOD UREA NITROGEN 14 mg/dL (7-17); CHLORIDE 97 mmol/L (98-107); Calcium 8.4 mg/dL (8.4-10.2); Carbon Dioxide 33 mmol/L (22-30); EST GLOMERULAR FILTRATION RATE > 60.0 ML/MIN; Glucose 99 mg/dL (74-106); SODIUM 136 mmol/L (137-145)
[2020-07-05 05:37] LABS: BAND 7 % (0.0-2.0); Eosinophil 5 % (0.00-3.0); Lymphocytes 21 % (24-44); Metamyelocyte 2 %; Monocyte 10 % (0.0-12.0); Neutrophils 55 % (36.0-66.0); Platelet Estimate NORMAL (NORMAL); Total Cells Counted 100
--- NOTE | 2020-07-05 07:53 | CONS ---
CONSULT DATE: 07/04/2020 REASON FOR CONSULT: Nonresolving pneumonia. HISTORY: Ksenia Hoskins is a 59 year-old woman with history of chronic obstructive pulmonary disease, who has been admitted with cough, shortness of breath and chills. The patient was noted to have right lower lobe infiltrate on admission x-ray. She has been treated with antibiotics and does report clinical improvement although a chest x-ray performed this morning has shown persistent right lower lobe infiltrate with tiny effusion. At the time of my evaluation the patient is sitting comfortably in chair. She denies any significant worsening of symptoms. She had been diagnosed with chronic obstructive pulmonary disease but appears to have had fairly well preserved effort tolerance. She uses inhaled bronchodilators on outpatient basis. There is no prior history of pneumonia or any other significant pulmonary problems. PAST MEDICAL HISTORY: Positive for history of hypertension, dyslipidemia, hypothyroidism, anxiety. PAST SURGICAL HISTORY: No recent surgery. PERSONAL AND SOCIAL HISTORY: She has been a smoker up until this admission. MEDICATIONS: Medications are reviewed. ALLERGIES: NKDA. PHYSICAL EXAMINATION: This is a middle aged woman sitting comfortably able to carry out a conversation, currently on oxygen via nasal cannula at 5 liters. HEENT: Normocephalic. Oral exam limited. CVS: First and second heart sounds are normal, regular, rhythmic. RESPIRATORY: Shows diminished breath sounds, basilar crackles are heard mainly at right lung base. ABDOMEN: Soft. EXTREMITIES: No significant edema is noted. LABORATORY DATA AND TESTS: Sodium 136, potassium 3.6, chloride 99, bicarb 31, glucose 95, BUN 14, creatinine 0.5. White count 11.9, hemoglobin 9, hematocrit 28, PLT 275,000. Blood cultures from 06/29/2020 were negative. Chest x-ray reviewed. I have reviewed actual films as well. ASSESSMENT: This is a 59 year old woman admitted with what appears to be a right lower lobe community acquired pneumonia which has not significantly improved radiologically despite antibiotic therapy. 2) Hypoxemia, acute. 3) Underlying chronic obstructive pulmonary disease. 4) History of comorbids as listed above. 5) Nicotine addiction. RECOMMENDATIONS: 1) I will obtain a CT chest without contrast to assess the pneumonia better. 2) The patient clinically appears better which is possible that we may be able to switch her to oral antibiotics, will discharge and follow up x-ray after about ten days of antibiotic therapy. PFT as outpatient. Need for smoking cessation was discussed. Continue pulmonary toilet. Wean supplemental oxygen keeping saturations at or about 92%. Further recommendations pending clinical improvement. Thank you for allowing me to participate in the care of Ksenia Hoskins.
--- NOTE | 2020-07-05 08:04 | PCM.NOTE ---
Date and Time: 07/05/20 08 Subjective Assessment: patient has been weaned to nasal cannula, states she is feeling better. she is very anxious to discharge to home Objective Exam General Appearance: no apparent distress, alert Respiratory Exam: crackles/rales (rt lung base) Cardiovascular Exam: regular rate/rhythm, normal heart sounds Gastrointestinal/Abdomen Exam: soft, No tenderness, No mass OBJECTIVE DATA Vital Signs: Vital Signs - 24 hr Temp Pulse Resp BP Pulse Ox 07/05/20 07:01 74 16 94 L 07/05/20 07:00 98.9 F 76 19 170/82 95 07/05/20 03:00 98.2 F 72 16 105/57 95 07/05/20 01:28 72 18 92 L 07/04/20 23:45 98.5 F 76 20 113/53 95 07/04/20 19:49 98.7 F 70 12 125/70 93 L 07/04/20 18:43 70 15 93 L 07/04/20 13:13 73 18 96 07/04/20 13:00 72 20 121/61 95 07/04/20 12:50 96 07/04/20 09:00 98.2 F 76 24 130/60 96 07/04/20 08:04 97 Oxygen-Last 24 hours Oxygen Flowrate (L/min)-RT 4 Pain Assessment - Last Documented Pain Intensity 0 Intake and Output: Intake & Output 07/02/20 07/03/20 07/04/20 07/05/20 11:59 11:59 11:59 11:59 Intake Total 3242 600 765 Output Total 4200 2450 1650 1750 Balance -958 -1850 -1650 -985 Weight 91.8 kg 90.8 kg 87.8 kg 89.7 kg Lab Results: Lab Results-Last 24 Hours 07/04/20 07/04/20 07/05/20 Range/Units 07:40 07:40 04:12 WBC 11.9 H 11.5 H (4.0-10.5) K/mm3 RBC 3.11 L 3.15 L (4.1-5.4) M/mm3 Hgb 9.0 L 9.1 L (12.0-16.0) gm/dl Hct 28.6 L 29.3 L (35-47) % MCV 92.0 93.0 (78-100) fl MCH 28.9 28.9 (26-32) pg MCHC 31.5 L 31.1 L (32-36) g/dl RDW 15.1 H 15.1 H (11.5-14.0) % Plt Count 275 340 (150-450) K/mm3 MPV 9.8 9.6 (7.5-11.0) fl Segmented Neutrophils 64 55 (36.0-66.0) % Band Neutrophils 2 7 H (0.0-2.0) % Lymphocytes (Manual) 17 L 21 L (24-44) % Monocytes (Manual) 11 10 (0.0-12.0) % Eosinophils (Manual) 2 5 H (0.00-3.0) % Metamyelocytes 2 % Myelocytes 4 % Nucleated RBCs 1 % Toxic Granulation 2+ Platelet Estimate NORMAL NORMAL (NORMAL) RBC Morphology ABNORMAL NORMAL Anisocytosis 1+ Microcytosis 1+ Sodium 136 L (137-145) mmol/L Potassium 3.6 (3.5-5.1) mmol/L Chloride 99 (98-107) mmol/L Carbon Dioxide 31 H (22-30) mmol/L Anion Gap 9.9 (5-15) MEQ/L BUN 14 (7-17) mg/dL Creatinine 0.53 (0.52-1.04) mg/dL Estimated GFR > 60.0 ML/MIN Glucose 95 (74-106) mg/dL Calcium 8.5 (8.4-10.2) mg/dL // Range/Units 04:12 WBC (4.0-10.5) K/mm3 RBC (4.1-5.4) M/mm3 Hgb (12.0-16.0) gm/dl Hct (35-47) % MCV (78-100) fl MCH (26-32) pg MCHC (32-36) g/dl RDW (11.5-14.0) % Plt Count (150-450) K/mm3 MPV (7.5-11.0) fl Segmented Neutrophils (36.0-66.0) % Band Neutrophils (0.0-2.0) % Lymphocytes (Manual) (24-44) % Monocytes (Manual) (0.0-12.0) % Eosinophils (Manual) (0.00-3.0) % Metamyelocytes % Myelocytes % Nucleated RBCs % Toxic Granulation Platelet Estimate (NORMAL) RBC Morphology Anisocytosis Microcytosis Sodium 136 L (137-145) mmol/L Potassium 4.0 (3.5-5.1) mmol/L Chloride 97 L (98-107) mmol/L Carbon Dioxide 33 H (22-30) mmol/L Anion Gap 10.3 (5-15) MEQ/L BUN 14 (7-17) mg/dL Creatinine 0.60 (0.52-1.04) mg/dL Estimated GFR > 60.0 ML/MIN Glucose 99 (74-106) mg/dL Calcium 8.4 (8.4-10.2) mg/dL Radiology Exams: Radiology Procedures Category Date Time Status CHEST 1 VIEW (PORTABLE) Routine Exams 07/04/20 07:22 Completed CHEST WITHOUT CONTRAST [CT] Routine Exams 07/05/20 08:00 Taken Assessment/Plan (1) Sepsis Current Visit: Yes Status: Acute Qualifiers: Sepsis type: sepsis due to unspecified organism Sepsis acute organ dysfunction status: without acute organ dysfunction Qualified Code(s): A41.9 - Sepsis, unspecified organism (2) Pneumonia Current Visit: Yes Status: Acute Assessment & Plan: clinically improving, on rocephin and zithromax, chest ct pending per Dr Thompson this Code(s): J18.9 - PNEUMONIA, UNSPECIFIED ORGANISM (3) Hypokalemia Current Visit: Yes Status: Acute Code(s): E87.6 - HYPOKALEMIA (4) UTI (urinary tract infection) Current Visit: Yes Status: Acute Qualifiers: Urinary tract infection type: acute cystitis Assessment & Plan: covered with rocephin Code(s): N39.0 - URINARY TRACT INFECTION, SITE NOT SPECIFIED
--- NOTE | 2020-07-05 09:08 | XRAY ---
Indication: Short of breath and cough. Pneumonia. Multiple contiguous axial images obtained through the chest without contrast. Comparison: None Lungs demonstrates subtle patchy diffuse airspace opacities bilaterally greatest in the upper lobes. Right lower lobe demonstrates near-complete consolidating airspace opacity. Tiny bilateral effusions, right greater than left. Right middle and lesser degree left lower lobe subsegmental atelectasis/scarring. Heart is not enlarged with tiny pericardial effusion. Aorta is normal in course and caliber. Multiple small mediastinal lymph nodes, largest right paratracheal measuring 2.2 x 1.8 cm. Bony thorax intact with mild degenerative changes throughout the spine. Limited upper abdomen demonstrate moderate colonic fecal debris. Impression: 1. Diffuse bilateral airspace disease with right lower lobe consolidating/organizing opacity and tiny bilateral effusions. 2. Multiple small mediastinal lymph nodes presumed reactive.
[2020-07-05] MEDS: LYRICA 150MG PO SCH (09:23)
[2020-07-05] MEDS: Lotensin 10 MG PO SCH (09:23)
[2020-07-05] MEDS: Klor Con 10 MEQ PO SCH (09:23)
[2020-07-05] MEDS: ECOTRIN 81 MG PO SCH (09:23)
[2020-07-05] MEDS: SYNTHROID 150 MCG PO SCH (09:23)
[2020-07-05] MEDS: Cymbalta 30 MG Capsule PO SCH (09:23)
[2020-07-05] MEDS: COREG 12.5 MG PO SCH (09:23)
[2020-07-05] MEDS: Tegretol 200 MG PO SCH ×2 (09:24→14:38)
[2020-07-05] MEDS: Zithromax 500 MG/ 250 ML NaCl Premix 500 MG/250 ML IVPB IV SCH (09:24)
[2020-07-05] MEDS: Lasix 20 MG/2 ML IV SCH (09:24)
[2020-07-05] MEDS: ENOXAPARIN SODIUM SQ SCH (09:24)
[2020-07-05 12:35] VITALS: PULSE 71
--- NOTE | 2020-07-05 12:49 | PROG NOTE ---
CONSULT DATE: 07/05/2020 Events noted. Chart reviewed. HISTORY: The patient is sitting in chair comfortable, voices no complaints. PHYSICAL EXAMINATION: Vital signs noted. HEENT: Normocephalic. Oral exam unremarkable. CVS: First and second heart sounds are normal, regular, rhythmic. RESPIRATORY: Shows diminished breath sounds, crackles are heard at right lung base. ABDOMEN: Soft. EXTREMITIES: No edema noted. LABORATORY DATA AND TESTS: CT chest reviewed. ASSESSMENT: This is a 59 year old woman admitted with: 1) Right lower lobe community acquired pneumonia. 2) Acute hypoxemia. 3) Underlying chronic obstructive pulmonary disease. 4) Nicotine addiction. RECOMMENDATIONS: 1) CT chest was reviewed and appeared to show pleural consolidation which would hopefully improve with adequate antibiotic therapy. 2) Reactive lymph nodes, CT scan for follow up. 3) The patient is clinically doing well but is requiring 3 liters oxygen via nasal cannula. She may be discharged home on supplemental oxygen. I have signed the DME ([employer]) paperwork for the same. 4) Recommend switching her to oral Levaquin 500 mg p.o. daily for ten days as well as doxycycline 100 mg p.o. b.i.d. for ten days. 5) Follow up chest x-ray has been requested after completion of antibiotic therapy with follow up in the office thereafter. 6) PFT as outpatient. 7) The patient will benefit from Pneumovax before discharge if possible. Thank you again for allowing me to participate in the care of Ksenia Hoskins.
--- NOTE | 2020-07-05 14:04 | PCM.DS ---
Discharge Summary Date of Admission: 06/30/20 02:46 Admitting Physician: PRICE FORBES Consults: Consults on Case 07/04/20 07:21 Consult Pulmonology ROUTINE Primary Care Provider: KADEN SCHAFER NP Allergies Allergies No Known Drug Allergies Allergy (Verified 06/29/20 23:18) Hospital Summary - Hospital Course Hospital Course: patient was admitted with pneumonia, sepsis and UTI, progressed with rocephin and zithromax, had high oxygen requirement of high flow so pulm was consulted, ct chest shows adenopathy and reactive effusion, appreciate recommendations for home oxygen, levaquin and doxy and she will f/u with Dr Ayoub on discharge - Vitals & Intake/Output Vital Signs: Vital Signs Temperature 99.3 F 07/05/20 11:00 Pulse Rate 71 07/05/20 12:34 Respiratory Rate 18 07/05/20 12:34 Blood Pressure 127/68 07/05/20 11:00 O2 Sat by Pulse Oximetry 94 L 07/05/20 12:34 Intake & Output: Intake & Output 07/03/20 07/04/20 07/05/20 07/06/20 11:59 11:59 11:59 11:59 Intake Total 600 765 240 Output Total 2450 1650 2950 Balance -1850 -1650 -2185 240 Weight 90.8 kg 87.8 kg 89.7 kg - Lab Result Diagrams: 07/05/20 04:12 07/05/20 04:12 Lab Results-Last 24 Hrs: Lab Results-Last 24 Hours 07/05/20 07/05/20 Range/Units 04:12 04:12 WBC 11.5 H (4.0-10.5) K/mm3 RBC 3.15 L (4.1-5.4) M/mm3 Hgb 9.1 L (12.0-16.0) gm/dl Hct 29.3 L (35-47) % MCV 93.0 (78-100) fl MCH 28.9 (26-32) pg MCHC 31.1 L (32-36) g/dl RDW 15.1 H (11.5-14.0) % Plt Count 340 (150-450) K/mm3 MPV 9.6 (7.5-11.0) fl Segmented Neutrophils 55 (36.0-66.0) % Band Neutrophils 7 H (0.0-2.0) % Lymphocytes (Manual) 21 L (24-44) % Monocytes (Manual) 10 (0.0-12.0) % Eosinophils (Manual) 5 H (0.00-3.0) % Metamyelocytes 2 % Platelet Estimate NORMAL (NORMAL) RBC Morphology NORMAL Sodium 136 L (137-145) mmol/L Potassium 4.0 (3.5-5.1) mmol/L Chloride 97 L (98-107) mmol/L Carbon Dioxide 33 H (22-30) mmol/L Anion Gap 10.3 (5-15) MEQ/L BUN 14 (7-17) mg/dL Creatinine 0.60 (0.52-1.04) mg/dL Estimated GFR > 60.0 ML/MIN Glucose 99 (74-106) mg/dL Calcium 8.4 (8.4-10.2) mg/dL Micro Results-Entire Visit: Microbiology 06/29/20 23:20 Blood Culture Gram Stain - Final Blood Not Reportable Blood Culture - Final NO GROWTH 06/29/20 23:20 Blood Culture Gram Stain - Final Blood Not Reportable Blood Culture - Final NO GROWTH 06/29/20 23:33 Urine Culture - Final Catherized Escherichia Coli - Radiology Exams Ordered Rad Exams-Entire Visit: Radiology Procedures Category Date Time Status CHEST 1 VIEW (PORTABLE) Routine Exams 07/04/20 07:22 Completed CHEST WITHOUT CONTRAST [CT] Routine Exams 07/05/20 08:00 Completed - Procedures and Test Procedures and Tests throughout Hospitalization: Therapy Orders & Screens 06/30/20 01:18 Oxygen Nasal Cannula 5 lpm Comment: 06/30/20 03:24 Smoking Cessation Education ONCE Comment: Diagnosis: UTI, pneumonia, altered mental status Smoking Status: Current every day smoker How long have you smoked: age 22 Have you smoked in the past 12 months: Yes Approximately how many cigarettes per day: 20 Do you dip or chew tobacco: No ST Screen per Nursing Assess ONCE Comment: Protocol Order Physician Instructions: Greater than [address] Admission Screening Reason For Exam: Triggered on Admission Diagnosis: UTI, pneumonia, altered mental status CVA/Dyshpagia/Aphasia: No Cognitive Deficits: Yes Dehydration/Nutrition Deficit: No Reflux: No Oral-Motor Difficulties: No Pneumonia: Yes Fdc Resident: No Total Points: 8 06/30/20 03:50 Respiratory Therapy Assessment DAILY Comment: Diagnosis: UTI, pneumonia, altered mental status 07/02/20 07:29 Oxygen High Flow per RT 50% Comment: Diagnosis: UTI, pneumonia, altered mental status Discharge Exam General Appearance: no apparent distress, alert Neurologic Exam: alert, oriented x 3 Respiratory Exam: crackles/rales (rt lune) Cardiovascular Exam: regular rate/rhythm, normal heart sounds Gastrointestinal/Abdomen Exam: soft, No tenderness, No mass Extremity Exam: normal inspection, normal range of motion Skin Exam: normal color, warm, dry Final Diagnosis/Problem List - Final Discharge Diagnosis/Problem (1) Sepsis Current Visit: Yes Status: Acute (2) Pneumonia Current Visit: Yes Status: Acute Assessment & Plan: home on levaquin and doxy per pulm recommendations. oxygen 3L NC at home and has f/u xray ordered Code(s): J18.9 - PNEUMONIA, UNSPECIFIED ORGANISM (3) Hypokalemia Current Visit: Yes Status: Acute Code(s): E87.6 - HYPOKALEMIA (4) UTI (urinary tract infection) Current Visit: Yes Status: Acute Code(s): N39.0 - URINARY TRACT INFECTION, SITE NOT SPECIFIED - Discharge Disposition: Home, Self-Care Condition: Good Prescriptions: New Levofloxacin [Levofloxacin 500 MG Tablet] 500 mg PO DAILY #10 tablet Doxycycline Hyclate 100 mg [Vibramycin 100 MG] 100 mg PO BID #20 tab Continue Carbamazepine 200 mg [Tegretol 200 MG] 200 mg PO TID Tizanidine HCl 4 mg [Zanaflex 4 MG] 4 mg PO Q8H PRN PRN PRN Reason: Pain Pregabalin [Lyrica] 300 mg PO BID Duloxetine HCl 30 mg [Cymbalta 30 MG Capsule] 120 mg PO DAILY ARIPiprazole [Aripiprazole] 5 mg PO DAILY Hydroxyzine HCl 10 mg PO TID Potassium Chloride 10 Meq Tab* [Klor Con 10 MEQ] 10 meq PO BID Trazodone HCl 50 mg [Desyrel 50 mg] 50 mg PO HS Benazepril HCl 40 mg PO DAILY Furosemide 40 mg [Lasix 40 MG] 1 tab PO DAILY Albuterol Sulfate [Proair Hfa] 2 puffs IH Q6H PRN PRN PRN Reason: Shortness Of Breath Aspirin 81 gm Chew [Baby Aspirin 81 mg Chew] 1 tab PO DAILY Fluticasone Propionate [Flovent 110 Mcg MDI] 1 puff IH BID Levothyroxine Sodium 150 Mcg [Synthroid 150 Mcg] 150 mcg PO DAILY Outpatient Orders: CHEST 2 VIEWS (PA AND LAT) Time Frame: 07/18/20, Facility: [facility]. Hosp, Location: RADIOLOGY Instructions: Pneumonia, Adult (DC) Follow up with: LYNDA AYOUB [ACTIVE STAFF] - 07/19/20 10:00 am (NEED TO GET CHEST XRAY THE DAY BEFORE APPT ) PRICE FORBES MD [ACTIVE STAFF] -
[2020-07-05 16:42] VITALS: BP 133/68; O2SAT 97
== END 2020-07-05 17:30 | disposition home or self-care (01) | DRG 871 ==
LOC: ED 22:33 → ICU 06-30 02:46 → MED SURG 06-30 09:33
PROVIDERS: ADMIT Family Medicine; ATTEND Family Medicine
DX: A41.9 Sepsis, unspecified organism (principal); J18.9 Pneumonia, unspecified organism; N39.0 Urinary tract infection, site not specified; J90 Pleural effusion, not elsewhere classified; E87.6 Hypokalemia; R41.82 Altered mental status, unspecified; Z79.899 Other long term (current) drug therapy; J44.9 Chronic obstructive pulmonary disease, unspecified; I10 Essential (primary) hypertension; E78.5 Hyperlipidemia, unspecified; E03.9 Hypothyroidism, unspecified; R09.02 Hypoxemia; F17.200 Nicotine dependence, unspecified, uncomplicated; R59.9 Enlarged lymph nodes, unspecified; Z20.828 Contact with and (suspected) exposure to other viral communicable diseases
CPT/HCPCS: 0241U; 36415; 70450; 71045; 71250; 80048; 80053; 80307; 81001; 82140; 83036; 83605; 83735; 84132; 84145; 84443; 84484; 85025; 85610; 85652; 85730; 86140; 87040; 87077; 87086; 87186; 93005; 93041; 94640; 94760; 94762; 96360; 96361; 96365; 96367; 96374; 99285; 99291; 99292; J0456; J0696; J1650; J1940; J1956; J2405; J3480; A9270-GY; G0480

== ENCOUNTER 2021-01-23 22:03 | Emergency (ER) | payer OTHER ==
[2021-01-23] MEDS ORDERED: DUONEB 0.5-3 MG/3 ml Neb IH ONE ×2 (22:26→22:47)
[2021-01-23] MEDS ORDERED: solu-MEDROL 125 MG, Sterile H2O 10 ml 2 ML IV ONE ×2 (22:26)
--- NOTE | 2021-01-23 22:36 | ERPHSYRPT ---
- History of Present Illness Time Seen by Provider: 01/23/21 22:06 Source: patient Exam Limitations: no limitations Patient Subjective Stated Complaint: 2-3 days ago I started feeling congested, and tonight I felt like I couldn't catch my breath but I also got very anxious Triage Nursing Assessment: pt arrives via EMS with c/o "unable to catch my breath". Pt O2 sats 94-95% on 3L n/c, which pt wears this at home. Lungs have exp wheezes ant/post bilat. Pt c/o prod cough with thick white to green sputum and some congestion. Pt does not appear to be in any distress. Pt has appointment with Dr. Thompson tomorrow. Physician History: 60-year-old female with history of tobacco abuse, chronic respiratory failure from COPD on 3 L oxygen presented in the ER with chief complaint of increasing cough and shortness of breath for the last 2 to 3 days. Patient reports cough productive of yellow-green sputum moderate in amount letter worse than usual smoker cough. Denies any chest pain but has tightness and wheezing despite using her routine inhalers. No fever or chills reported. Patient was having wheezing on EMS arrival and was given DuoNeb and currently minimal wheezing bilaterally and not in any distress and satting around 96% on 3 L. Denies sick contact. Timing/Duration: day(s) (2), gradual onset, worse Activities at Onset: activity, rest Severity of Dyspnea-Max: moderate Severity of Dyspnea-Current: mild Possible Cause: occasional episodes Modifying Factors: Worsens With: coughing, exertion Associated Symptoms: cough, wheezing, productive cough, tightness, No chest pain/discomfort, No fever Allergies/Adverse Reactions: No Known Drug Allergies Allergy (Verified 01/23/21 22:24) Home Medications: ARIPiprazole [Aripiprazole] 5 mg PO DAILY 01/11/20 [History] Carbamazepine 200 mg [Tegretol 200 MG] 200 mg PO TID 01/11/20 [History] Duloxetine HCl 30 mg [Cymbalta 30 MG Capsule] 120 mg PO DAILY 01/11/20 [History] Pregabalin [Lyrica] 300 mg PO BID 01/11/20 [History] Tizanidine HCl 4 mg [Zanaflex 4 MG] 4 mg PO Q8H PRN PRN 01/11/20 [History] hydrOXYzine HCL [Hydroxyzine HCl] 10 mg PO TID 01/11/20 [History] Albuterol Sulfate [Proair Hfa] 2 puffs IH Q6H PRN PRN 06/30/20 [History] Aspirin 81 gm Chew [Baby Aspirin 81 mg Chew] 1 tab PO DAILY 06/30/20 [History] Benazepril HCl 40 mg PO DAILY 06/30/20 [History] Fluticasone Propionate [Flovent 110 Mcg MDI] 1 puff IH BID 06/30/20 [History] Furosemide 40 mg [Lasix 40 MG] 1 tab PO DAILY 06/30/20 [History] Levothyroxine Sodium 150 Mcg [Synthroid 150 Mcg] 150 mcg PO DAILY 06/30/20 [History] Potassium Chloride 10 Meq Tab* [Klor Con 10 MEQ] 10 meq PO BID 06/30/20 [History] Trazodone HCl 50 mg [Desyrel 50 mg] 50 mg PO HS 06/30/20 [History] Hx Tetanus, Diphtheria Vaccination/Date Given: No Hx Influenza Vaccination/Date Given: No Hx Pneumococcal Vaccination/Date Given: No Immunizations Up to Date: No Travel Risk - International Travel Have you traveled outside of the country in past 3 weeks: No - Coronavirus Screening Are you exhibiting any of the following symptoms?: Yes Symptoms: Cough: New Onset, Shortness of Breath Close contact with a COVID-19 positive Pt in past 14-21 Days: No - Vaccine Status Have you recieved a Covid-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: Yes Sap Developer: [employer] - Vaccination Dates Date of 2cond Vaccination (if applicable): 06/08/20 Comment: booster 1 week ago - Review of Systems Constitutional: No Symptoms Eyes: No Symptoms Ears, Nose, & Throat: No Symptoms Respiratory: Cough, Dyspnea, Dyspnea on Exertion (THORPE), Wheezing Cardiac: No Symptoms Abdominal/Gastrointestinal: No Symptoms Genitourinary Symptoms: No Symptoms Musculoskeletal: No Symptoms Skin: No Symptoms Neurological: No Symptoms Psychological: No Symptoms Endocrine: No Symptoms Hematologic/Lymphatic: No Symptoms Immunological/Allergic: No Symptoms - Past Medical History Pertinent Past Medical History: Yes Neurological History: Peripheral Neuropathy ENT History: No Pertinent History Cardiac History: Congestive Heart Failure, Hypertension Respiratory History: Bronchitis, CHF, COPD, Pneumonia Endocrine Medical History: No Pertinent History Musculoskeletal History: No Pertinent History GI Medical History: No Pertinent History History: No Pertinent History Psycho-Social History: No Pertinent History Female Reproductive Disorders: No Pertinent History Other Medical History: pt unable to participate in admission documentation due to severe confusion, history taken off meds list - Past Surgical History Past Surgical History: Yes Neuro Surgical History: No Pertinent History Cardiac: No Pertinent History Respiratory: No Pertinent History Gastrointestinal: Appendectomy Genitourinary: No Pertinent History Musculoskeletal: No Pertinent History Female Surgical History: No Pertinent History Other Surgical History: elbow surgery. skin cancer removed - Social History Smoking Status: Current every day smoker How long have you smoked: 20 yrs Exposure to second hand smoke: No Drug Use: none Patient Lives Alone: Yes - Female History Hx Now: No - Nursing Vital Signs Nursing Vital Signs: Initial Vital Signs Temperature 98.2 F 01/23/21 22:07 Pulse Rate 78 01/23/21 22:07 Respiratory Rate 20 01/23/21 22:07 Blood Pressure 161/103 01/23/21 22:07 O2 Sat by Pulse Oximetry 94 L 01/23/21 22:07 Pain Scale Pain Intensity 0 - Physical Exam General Appearance: no apparent distress, alert, anxiety Eye Exam: PERRL/EOMI, eyes nml inspection Ears, Nose, Throat Exam: hearing grossly normal, normal pharynx, pharyngeal erythema Neck Exam: normal inspection, non-tender, supple, JVD Respiratory Exam: wheezing, No respiratory distress, No accessory muscle use Cardiovascular/Chest Exam: normal heart sounds, regular rate/rhythm Abdominal/Gastrointestinal Exam: soft, No tenderness Extremity Exam: non-tender, normal range of motion Neurologic Exam: alert, oriented x 3, cooperative Skin Exam: normal color SpO2 Interpretation: normal, O2 applied SpO2: 95 O2 Delivery: Nasal Cannula - Course EKG Interpreted by Me: RATE (73), Sinus Rhythm, NORMAL AXIS, NORMAL INTERVALS, NORMAL QRS Ordered Tests: Medication Summary Discontinued Medications Generic Name Dose Route Start Last Admin Trade Name Freq PRN Reason Stop Dose Admin Albuterol/Ipratropium 3 ml 01/23/21 22:26 01/23/21 22:51 Ipratropium/Albuterol Sulfate 3 Ml Ampul.Neb IH 01/23/21 22:27 3 ml STAT ONE Administration Albuterol/Ipratropium Confirm 01/23/21 22:47 Ipratropium/Albuterol Sulfate 3 Ml Ampul.Neb Administered 01/23/21 22:48 Dose 3 ml IH .STK-MED ONE Methylprednisolone Sodium 0 mg 01/23/21 22:26 01/23/21 23:00 Succinate 125 mg/ Sterile IV 01/23/21 22:27 125 mg Water 2 ml STAT ONE Administration Doxycycline Hyclate 100 mg 01/24/21 00:21 01/24/21 01:48 Doxycycline Hyclate 100 Mg Tablet PO 01/24/21 00:22 100 mg STAT ONE Administration Doxycycline Hyclate Confirm 01/24/21 01:48 Doxycycline Hyclate 100 Mg Tablet Administered 01/24/21 01:49 Dose 100 mg .ROUTE .STK-MED ONE Methylprednisolone Sodium Succinate Confirm 01/23/21 22:58 Methylprednis Sod Succ 125 Mg/2 Ml Vial Administered 01/23/21 22:59 Dose 125 mg .ROUTE .STK-MED ONE Sterile Water Confirm 01/23/21 23:01 Water For Injection,Sterile 10 Ml Vial Administered 01/23/21 23:02 Dose 10 ml IJ .STK-MED ONE Lab/Rad Data: Laboratory Result Diagrams 01/23/21 23:00 01/23/21 23:00 Laboratory Results 01/23/21 01/23/21 01/23/21 Range/Units 23:00 23:00 23:00 WBC 12.9 H (4.0-10.5) K/mm3 RBC 4.21 (4.1-5.4) M/mm3 Hgb 12.3 (12.0-16.0) gm/dl Hct 38.8 (35-47) % MCV 92.2 (78-100) fl MCH 29.2 (26-32) pg MCHC 31.7 L (32-36) g/dl RDW 16.0 H (11.5-14.0) % Plt Count 242 (150-450) K/mm3 MPV 8.9 (7.5-11.0) fl Gran % 74.4 H (36.0-66.0) % Eos # (Auto) 0.32 (0-0.5) Absolute Lymphs (auto) 1.97 (1.0-4.6) Absolute Monos (auto) 0.96 (0.0-1.3) Lymphocytes % 15.2 L (24.0-44.0) % Monocytes % 7.4 (0.0-12.0) % Eosinophils % 2.5 (0.00-5.0) % Basophils % 0.5 (0.0-0.4) % Absolute Granulocytes 9.61 H (1.4-6.9) Basophils # 0.07 (0-0.4) Sodium 133 L (137-145) mmol/L Potassium 4.2 (3.5-5.1) mmol/L Chloride 95 L (98-107) mmol/L Carbon Dioxide 31 H (22-30) mmol/L Anion Gap 11.8 (5-15) MEQ/L BUN 12 (7-17) mg/dL Creatinine 0.57 (0.52-1.04) mg/dL Estimated GFR > 60.0 ML/MIN Glucose 100 (74-106) mg/dL Calcium 8.8 (8.4-10.2) mg/dL Magnesium 1.9 (1.6-2.3) mg/dL Total Bilirubin 0.60 (0.2-1.3) mg/dL AST 22 (14-36) U/L ALT 17 (0-35) U/L Alkaline Phosphatase 142 H (38-126) U/L Troponin I < 0.012 (0.000-0.034) ng/mL NT-Pro-B Natriuret Pep 1010 H (0-900) pg/mL Serum Total Protein 7.2 (6.3-8.2) g/dL Albumin 3.9 (3.5-5.0) g/dL - Progress Progress: improved Air Movement: good Progress Note: 01/24/21 00:22 She was given another breathing treatment on presentation and feeling much better on reevaluation. Given Solu-Medrol. Chest x-ray did not show any acute cardiopulmonary findings. Negative troponins. Grossly unremarkable chemistries. Maintaining oxygen saturation around 96% on 3 L which she normally is on. Not in any distress at all. I believe she has a COPD bronchitis, given oral antibiotics and will give a short course of steroid. Do not think patient needs admission or any other work-up and is stable for discharge with outpatient follow-up. Discussed signs symptoms of worsening needing return to ER which she seems understanding. Blood Culture(s) Obtained: Yes Antibiotics given: Yes Counseled pt/family regarding: lab results, diagnosis, need for follow-up, rad results, smoking cessation - Departure Departure Disposition: Home Clinical Impression: COPD with exacerbation Condition: Stable Critical Care Time: No Referrals: KADEN SCHAFER, CELLAR PUMPER [Primary Care Provider] - Follow up/PCP as directed (In 1-2 days for reevaluation) Instructions: Chronic Obstructive Pulmonary Disease, Exacerbation of COPD (DC) Additional Instructions: Do not smoke. Use neb treatments/inhaler as recommended. Follow-up with primary care for reevaluation. Return to ER for worsening cough/shortness of breath or if develop fever chills etc. Prescriptions: Prednisone 20 mg [Deltasone 20 mg] 60 mg PO DAILY 5 Days #15 tablet Doxycycline Hyclate 100 mg [Vibramycin 100 MG] 100 mg PO BID #14 tab
[2021-01-23] MEDS ORDERED: solu-MEDROL ONE (22:58)
[2021-01-23] MEDS ORDERED: Sterile H2O 10 ml IJ ONE (23:01)
[2021-01-23 23:16] LABS: Absolute Neutrophil Ct (ANC) 9.61 (1.4-6.9); BASOPHIL % 0.5 % (0.0-0.4); Basophil (Absolute #) 0.07 (0-0.4); Eosinophil % 2.5 % (0.00-5.0); Eosinophil (Absolute #) 0.32 (0-0.5); Hematocrit 38.8 % (35-47); Hemoglobin 12.3 gm/dl (12.0-16.0); Lymphocyte (Absolute #) 1.97 (1.0-4.6); Lymphocytes % 15.2 % (24.0-44.0); Mean Cell Volume 92.2 fl (78-100); Mean Corpuscular Hemoglobin 29.2 pg (26-32); Mean Corpuscular Hgb Concent. 31.7 g/dl (32-36); Mean Platelet Volume 8.9 fl (7.5-11.0); Monocyte (Absolute #) 0.96 (0.0-1.3); Monocytes % 7.4 % (0.0-12.0); Neutrophil % 74.4 % (36.0-66.0); Platelet Count 242 K/mm3 (150-450); Red Blood Count 4.21 M/mm3 (4.1-5.4); White Blood Count 12.9 K/mm3 (4.0-10.5)
[2021-01-23 23:32] LABS: ALBUMIN 3.9 g/dL (3.5-5.0); ALKALINE PHOSPHATASE 142 U/L (38-126); ANION GAP 11.8 MEQ/L (5-15); BLOOD UREA NITROGEN 12 mg/dL (7-17); CHLORIDE 95 mmol/L (98-107); Calcium 8.8 mg/dL (8.4-10.2); Carbon Dioxide 31 mmol/L (22-30); Creatinine 1 0.57 mg/dL (0.52-1.04); EST GLOMERULAR FILTRATION RATE > 60.0 ML/MIN; Glucose 100 mg/dL (74-106); MAGNESIUM 1.9 mg/dL (1.6-2.3); NT PRO BNP 1010 pg/mL (0-900); Potassium 4.2 mmol/L (3.5-5.1); SGOT/AST 22 U/L (14-36); SGPT/ALT 17 U/L (0-35); SODIUM 133 mmol/L (137-145); Total Protein 7.2 g/dL (6.3-8.2)
[2021-01-24] MEDS ORDERED: Vibramycin 100 MG PO ONE (00:21)
[2021-01-24] MEDS ORDERED: Vibramycin 100 MG ONE (01:48)
[2021-01-24 04:19] VITALS: O2SAT 95
[2021-01-24 04:20] VITALS: BP 174/84; PULSE 79
--- NOTE | 2021-01-24 09:42 | XRAY ---
Indication: Cough. Comparison: July 04, 2020. Portable chest demonstrates clearing of previous bibasilar pleural parenchymal opacities. No focal infiltrate, consolidation, or large effusion. Heart not enlarged. Bony thorax intact again with mild osteopenia and degenerative changes. Impression: Nonacute chest.
== END 2021-01-24 04:02 | disposition home or self-care (01) ==
LOC: ED 22:03
DX: J44.1 Chronic obstructive pulmonary disease with (acute) exacerbation (principal); J96.10 Chronic respiratory failure, unspecified whether with hypoxia or hypercapnia; Z99.81 Dependence on supplemental oxygen; Z72.0 Tobacco use; I11.0 Hypertensive heart disease with heart failure; I50.9 Heart failure, unspecified
CPT/HCPCS: 36000; 36415; 71045; 80053; 83735; 83880; 84484; 85025; 87040; 93005; 93041; 94640; 96374; 99284; J2930; A9270-GY

== ENCOUNTER 2021-03-06 07:47 | Observation (INO) | payer OTHER ==
[2021-03-06] MEDS ORDERED: DUONEB 0.5-3 MG/3 ml Neb IH ONE ×2 (08:01→08:12)
[2021-03-06] MEDS ORDERED: TYLENOL 325 MG PO STA (08:02)
[2021-03-06] MEDS ORDERED: ROCEPHIN 2 Gm-D5w 50ML BAG** 2 G/50 ML IVPB IV STA (08:02)
[2021-03-06] MEDS ORDERED: Zithromax 500 MG/ 250 ML NaCl Premix 500 MG/250 ML IVPB IV STA (08:02)
[2021-03-06] MEDS ORDERED: TYLENOL 325 MG ONE (08:05)
[2021-03-06] MEDS ORDERED: Zithromax 500 MG/ 250 ML NaCl Premix 500 MG/250 ML IVPB IV ONE (08:06)
[2021-03-06] MEDS ORDERED: ROCEPHIN 2 Gm-D5w 50ML BAG** 2 G/50 ML IVPB IV ONE (08:06)
--- NOTE | 2021-03-06 08:07 | ERPHSYRPT ---
- History of Present Illness Time Seen by Provider: 03/06/21 08:01 Source: patient, EMS Exam Limitations: no limitations Patient Subjective Stated Complaint: PT states "I have been short of breath for the past 2 days and I am freezing." Triage Nursing Assessment: Pt presented alert and oriented X 3, skin pwd Pt able to speak in clear full sentences. Pt tachypneic. Pt extremely warm to touch. Pt voice raspy. Pt squinting and panting. Physician History: 60-year-old female with history of chronic respiratory failure secondary to COPD on 3 L oxygen, tobacco abuse presented in the ER with 2 days of worsening cough and shortness of breath with subjective feeling of fever and chills. Patient reports having shortness of breath initially with activity and now resting. Feels short of breath despite being on oxygen and saturation is around 91% on 3 L, given DuoNeb and Solu-Medrol by EMS and feeling a little better. She had a fever of 101 on presentation. Complaining of increased wheezing with chest tightness but no chest pain. Denies any known sick contact. Vaccinated for COVID-19. Timing/Duration: day(s) (2), constant, gradual onset, worse Activities at Onset: activity, rest Severity of Dyspnea-Max: moderate Severity of Dyspnea-Current: moderate Modifying Factors: Improves With: albuterol nebulizer, oxygen. Worsens With: activity, coughing, exertion Associated Symptoms: cough, fever, wheezing, productive cough, tightness, No chest pain/discomfort Allergies/Adverse Reactions: No Known Drug Allergies Allergy (Verified 01/23/21 22:24) Home Medications: ARIPiprazole [Aripiprazole] 5 mg PO DAILY 01/11/20 [History] Carbamazepine 200 mg [Tegretol 200 MG] 200 mg PO TID 01/11/20 [History] Duloxetine HCl 30 mg [Cymbalta 30 MG Capsule] 120 mg PO DAILY 01/11/20 [History] Pregabalin [Lyrica] 300 mg PO BID 01/11/20 [History] Tizanidine HCl 4 mg [Zanaflex 4 MG] 4 mg PO Q8H PRN PRN 01/11/20 [History] hydrOXYzine HCL [Hydroxyzine HCl] 10 mg PO TID 11/25/20 [History] Albuterol Sulfate [Proair Hfa] 2 puffs IH Q6H PRN PRN 06/30/20 [History] Aspirin 81 gm Chew [Baby Aspirin 81 mg Chew] 1 tab PO DAILY 06/30/20 [History] Benazepril HCl 40 mg PO DAILY 06/30/20 [History] Fluticasone Propionate [Flovent 110 Mcg MDI] 1 puff IH BID 06/30/20 [History] Furosemide 40 mg [Lasix 40 MG] 1 tab PO DAILY 06/30/20 [History] Levothyroxine Sodium 150 Mcg [Synthroid 150 Mcg] 150 mcg PO DAILY 06/30/20 [History] Potassium Chloride 10 Meq Tab* [Klor Con 10 MEQ] 10 meq PO BID 06/30/20 [History] Trazodone HCl 50 mg [Desyrel 50 mg] 50 mg PO HS 06/30/20 [History] Hx Tetanus, Diphtheria Vaccination/Date Given: No Hx Influenza Vaccination/Date Given: No Hx Pneumococcal Vaccination/Date Given: No Immunizations Up to Date: Yes Travel Risk - International Travel Have you traveled outside of the country in past 3 weeks: No - Coronavirus Screening Are you exhibiting any of the following symptoms?: Yes Symptoms: Fever, Cough: New Onset, Shortness of Breath Close contact with a COVID-19 positive Pt in past 14-21 Days: No - Vaccine Status Have you recieved a Covid-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: Yes 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: [employer] - Vaccination Dates Date of 2cond Vaccination (if applicable): 06/2020 Comment: and booster - Review of Systems Constitutional: Fever, Chills, Fatigue, Weakness Eyes: No Symptoms Ears, Nose, & Throat: No Symptoms Respiratory: Cough, Dyspnea, Dyspnea on Exertion (THORPE), Wheezing Cardiac: No Symptoms Abdominal/Gastrointestinal: No Symptoms Genitourinary Symptoms: No Symptoms Musculoskeletal: Myalgias Skin: No Symptoms Neurological: No Symptoms Psychological: No Symptoms Endocrine: No Symptoms Hematologic/Lymphatic: No Symptoms Immunological/Allergic: No Symptoms - Past Medical History Pertinent Past Medical History: Yes Neurological History: Peripheral Neuropathy ENT History: No Pertinent History Cardiac History: Congestive Heart Failure, Hypertension Respiratory History: Bronchitis, CHF, COPD, Pneumonia Endocrine Medical History: No Pertinent History Musculoskeletal History: No Pertinent History GI Medical History: No Pertinent History History: No Pertinent History Psycho-Social History: No Pertinent History Female Reproductive Disorders: No Pertinent History Other Medical History: pt unable to participate in admission documentation due to severe confusion, history taken off meds list - Past Surgical History Past Surgical History: Yes Neuro Surgical History: No Pertinent History Cardiac: No Pertinent History Respiratory: No Pertinent History Gastrointestinal: Appendectomy Genitourinary: No Pertinent History Musculoskeletal: No Pertinent History Female Surgical History: No Pertinent History Other Surgical History: elbow surgery. skin cancer removed - Social History Smoking Status: Current every day smoker How long have you smoked: 20 yrs Exposure to second hand smoke: No Drug Use: none Patient Lives Alone: Yes - Nursing Vital Signs Nursing Vital Signs: Initial Vital Signs Temperature 101.0 F 03/06/21 07:48 Pulse Rate 90 03/06/21 07:48 Respiratory Rate 24 03/06/21 07:48 Blood Pressure 162/85 03/06/21 07:48 O2 Sat by Pulse Oximetry 91 L 03/06/21 07:48 Pain Scale Pain Intensity 0 - Physical Exam General Appearance: no apparent distress, alert Eye Exam: PERRL/EOMI Ears, Nose, Throat Exam: pharyngeal erythema Neck Exam: normal inspection, non-tender, supple, full range of motion Respiratory Exam: diminished breath sounds, rhonchi, wheezing Cardiovascular/Chest Exam: normal heart sounds, regular rate/rhythm Abdominal/Gastrointestinal Exam: soft, normal bowel sounds Extremity Exam: non-tender, normal range of motion Neurologic Exam: alert, oriented x 3, cooperative Skin Exam: normal color SpO2 Interpretation: normal, O2 applied SpO2: 95 O2 Delivery: Nasal Cannula Ordered Tests: Active Orders 24 hr Category Date Time Status Physical Therapy Nurse STAT Care 03/06/21 08:02 Active EKG-ER Only STAT Care 03/06/21 08:01 Active IV Insertion STAT Care 03/06/21 08:01 Active Oxygen-ED Only Nasal Cannula 4 lpm Care 03/06/21 08:01 Active CHEST 1 VIEW (PORTABLE) Stat Exams 03/06/21 08:02 Completed BLOOD CULTURE Stat Lab 03/06/21 08:22 Received CBC W DIFF Stat Lab 03/06/21 08:16 Completed CMP Stat Lab 03/06/21 08:16 Completed Lactic Acid Stat Lab 03/06/21 08:20 Completed MAGNESIUM Stat Lab 03/06/21 08:16 Completed NT PRO BNP Stat Lab 03/06/21 08:16 Completed PROCALCITONIN Stat Lab 03/06/21 08:22 Completed TROPONIN Q3H Lab 03/06/21 08:16 Completed TROPONIN Q3H Lab 03/06/21 11:23 Received TROPONIN Q3H Lab 03/06/21 14:15 Ordered TROPONIN Q3H Lab 03/06/21 17:15 Ordered TROPONIN Q3H Lab 03/06/21 20:15 Ordered UA W/RFX UR CULTURE Stat Lab 03/06/21 08:02 Ordered Respiratory Therapy Assessment DAILY RT 03/06/21 08:26 Active Medication Summary Generic Name Dose Route Start Last Admin Trade Name Freq PRN Reason Stop Dose Admin Remdesivir 200 mg/ Sodium 250 mls @ 125 mls/hr 03/06/21 11:44 Chloride IV 03/06/21 13:43 ONCE ONE Discontinued Medications Generic Name Dose Route Start Last Admin Trade Name Freq PRN Reason Stop Dose Admin Acetaminophen 975 mg 03/06/21 08:02 03/06/21 08:08 Acetaminophen 325 Mg Tablet PO 03/06/21 08:03 975 mg STAT STA Administration Acetaminophen Confirm 03/06/21 08:05 Acetaminophen 325 Mg Tablet Administered 03/06/21 08:06 Dose 975 mg .ROUTE .STK-MED ONE Albuterol/Ipratropium 3 ml 03/06/21 08:01 03/06/21 08:14 Ipratropium/Albuterol Sulfate 3 Ml Ampul.Neb IH 03/06/21 08:02 3 ml STAT ONE Administration Albuterol/Ipratropium Confirm 03/06/21 08:12 Ipratropium/Albuterol Sulfate 3 Ml Ampul.Neb Administered 03/06/21 08:13 Dose 3 ml IH .STK-MED ONE Azithromycin 500 mg in 250 mls @ 250 mls/hr 03/06/21 08:02 03/06/21 09:49 Zithromax 500 Mg/ 250 Ml Nacl Premix IV 03/06/21 09:01 Infused STAT STA Infusion Ceftriaxone Sodium/Dextrose 2 g in 50 mls @ 100 mls/hr 03/06/21 08:02 03/06/21 08:53 Rocephin 2 Gm-D5w 50ml Bag IV 03/06/21 08:31 Infused STAT STA Infusion Azithromycin Confirm 03/06/21 08:06 Zithromax 500 Mg/ 250 Ml Nacl Premix Administered 03/06/21 08:07 Dose 500 mg in 250 mls @ ud IV .STK-MED ONE Ceftriaxone Sodium/Dextrose Confirm 03/06/21 08:06 Rocephin 2 Gm-D5w 50ml Bag Administered 03/06/21 08:07 Dose 2 g in 50 mls @ ud IV .STK-MED ONE Lab/Rad Data: Laboratory Result Diagrams 03/06/21 08:16 03/06/21 08:16 Laboratory Results 03/06/21 03/06/21 03/06/21 Range/Units 10:41 08:22 08:20 WBC (4.0-10.5) K/mm3 RBC (4.1-5.4) M/mm3 Hgb (12.0-16.0) gm/dl Hct (35-47) % MCV (78-100) fl MCH (26-32) pg MCHC (32-36) g/dl RDW (11.5-14.0) % Plt Count (150-450) K/mm3 MPV (7.5-11.0) fl Gran % (36.0-66.0) % Eos # (Auto) (0-0.5) Absolute Lymphs (auto) (1.0-4.6) Absolute Monos (auto) (0.0-1.3) Lymphocytes % (24.0-44.0) % Monocytes % (0.0-12.0) % Eosinophils % (0.00-5.0) % Basophils % (0.0-0.4) % Absolute Granulocytes (1.4-6.9) Basophils # (0-0.4) Sodium (137-145) mmol/L Potassium (3.5-5.1) mmol/L Chloride (98-107) mmol/L Carbon Dioxide (22-30) mmol/L Anion Gap (5-15) MEQ/L BUN (7-17) mg/dL Creatinine (0.52-1.04) mg/dL Estimated GFR ML/MIN Glucose (74-106) mg/dL Lactic Acid 0.6 (0.4-2.0) Calcium (8.4-10.2) mg/dL Magnesium (1.6-2.3) mg/dL Total Bilirubin (0.2-1.3) mg/dL AST (14-36) U/L ALT (0-35) U/L Alkaline Phosphatase (38-126) U/L Troponin I (0.000-0.034) ng/mL NT-Pro-B Natriuret Pep (0-900) pg/mL Serum Total Protein (6.3-8.2) g/dL Albumin (3.5-5.0) g/dL Procalcitonin 0.043 (0.030-0.080) ng/mL Influenza Type A Ag NEGATIVE (NEGATIVE) Influenza Type B Ag NEGATIVE (NEGATIVE) RSV (PCR) NEGATIVE (Negative) SARS-CoV-2 (PCR) POSITIVE A (NEGATIVE) Slides for Path Review 03/06/21 03/06/21 03/06/21 Range/Units 08:16 08:16 08:16 WBC 13.8 H (4.0-10.5) K/mm3 RBC 3.83 L (4.1-5.4) M/mm3 Hgb 11.4 L (12.0-16.0) gm/dl Hct 35.5 (35-47) % MCV 92.7 (78-100) fl MCH 29.8 (26-32) pg MCHC 32.1 (32-36) g/dl RDW 14.8 H (11.5-14.0) % Plt Count 226 (150-450) K/mm3 MPV 8.9 (7.5-11.0) fl Gran % 85.8 H (36.0-66.0) % Eos # (Auto) 0.17 (0-0.5) Absolute Lymphs (auto) 0.59 L (1.0-4.6) Absolute Monos (auto) 1.17 (0.0-1.3) Lymphocytes % 4.3 L (24.0-44.0) % Monocytes % 8.5 (0.0-12.0) % Eosinophils % 1.2 (0.00-5.0) % Basophils % 0.2 (0.0-0.4) % Absolute Granulocytes 11.88 H (1.4-6.9) Basophils # 0.03 (0-0.4) Sodium 136 L (137-145) mmol/L Potassium 3.4 L (3.5-5.1) mmol/L Chloride 97 L (98-107) mmol/L Carbon Dioxide 30 (22-30) mmol/L Anion Gap 12.3 (5-15) MEQ/L BUN 8 (7-17) mg/dL Creatinine 0.56 (0.52-1.04) mg/dL Estimated GFR > 60.0 ML/MIN Glucose 123 H (74-106) mg/dL Lactic Acid (0.4-2.0) Calcium 8.4 (8.4-10.2) mg/dL Magnesium 1.8 (1.6-2.3) mg/dL Total Bilirubin 1.00 (0.2-1.3) mg/dL AST 23 (14-36) U/L ALT 17 (0-35) U/L Alkaline Phosphatase 100 (38-126) U/L Troponin I < 0.012 (0.000-0.034) ng/mL NT-Pro-B Natriuret Pep 465 (0-900) pg/mL Serum Total Protein 7.3 (6.3-8.2) g/dL Albumin 3.9 (3.5-5.0) g/dL Procalcitonin (0.030-0.080) ng/mL Influenza Type A Ag (NEGATIVE) Influenza Type B Ag (NEGATIVE) RSV (PCR) (Negative) SARS-CoV-2 (PCR) (NEGATIVE) Slides for Path Review YES - Progress Progress: improved Air Movement: good Progress Note: 03/06/21 11:47 60-year-old is evaluated for worsening shortness of breath and cough. She is given another neb treatment on presentation, on reevaluation feeling somewhat better and maintaining sats around 94% on 4 L. She is given a dose of antibiotic as well. Work-up showed white count of 13, normal lactate and procalcitonin. EKG no acute ischemic changes/normal sinus rhythm. Chest x-ray no acute findings. Discussed with Dr. Suh patient is admitted to regular floor but her COVID 19 test is positive, discussed with , reviewed history, and work-up and patient is being admitted, given a dose of remdesivir as well. Blood Culture(s) Obtained: Yes Antibiotics given: Yes Discussed with DrTodd: Derek Miller Will see patient in: hospital (observation) Counseled pt/family regarding: lab results, diagnosis, rad results, smoking cessation - Departure Departure Disposition: Observation Clinical Impression: COPD with exacerbation, COVID-19 virus detected Condition: Stable Critical Care Time: No Referrals: KADEN SCHAFER, [employer] [Primary Care Provider] - Follow up/PCP as directed Instructions: Chronic Obstructive Pulmonary Disease
[2021-03-06 08:35] LABS: Absolute Neutrophil Ct (ANC) 11.88 (1.4-6.9); Basophil (Absolute #) 0.03 (0-0.4); Eosinophil % 1.2 % (0.00-5.0); Eosinophil (Absolute #) 0.17 (0-0.5); Hematocrit 35.5 % (35-47); Hemoglobin 11.4 gm/dl (12.0-16.0); Lymphocyte (Absolute #) 0.59 (1.0-4.6); Lymphocytes % 4.3 % (24.0-44.0); Mean Cell Volume 92.7 fl (78-100); Mean Corpuscular Hemoglobin 29.8 pg (26-32); Mean Corpuscular Hgb Concent. 32.1 g/dl (32-36); Mean Platelet Volume 8.9 fl (7.5-11.0); Monocyte (Absolute #) 1.17 (0.0-1.3); Monocytes % 8.5 % (0.0-12.0); Neutrophil % 85.8 % (36.0-66.0); Platelet Count 226 K/mm3 (150-450); Red Blood Count 3.83 M/mm3 (4.1-5.4); Red Cell Distribution Width 14.8 % (11.5-14.0); White Blood Count 13.8 K/mm3 (4.0-10.5)
--- NOTE | 2021-03-06 08:46 | XRAY ---
Indication: Short of breath. Comparison: January 23, 2021. Portable chest remains clear. Heart not enlarged. Bony thorax intact again with mild osteopenia and degenerative changes. No new/acute findings.
[2021-03-06 09:08] LABS: ALBUMIN 3.9 g/dL (3.5-5.0); ALKALINE PHOSPHATASE 100 U/L (38-126); ANION GAP 12.3 MEQ/L (5-15); BLOOD UREA NITROGEN 8 mg/dL (7-17); CHLORIDE 97 mmol/L (98-107); Calcium 8.4 mg/dL (8.4-10.2); Carbon Dioxide 30 mmol/L (22-30); Creatinine 1 0.56 mg/dL (0.52-1.04); EST GLOMERULAR FILTRATION RATE > 60.0 ML/MIN; Glucose 123 mg/dL (74-106); MAGNESIUM 1.8 mg/dL (1.6-2.3); NT PRO BNP 465 pg/mL (0-900); Potassium 3.4 mmol/L (3.5-5.1); SGOT/AST 23 U/L (14-36); SGPT/ALT 17 U/L (0-35); SODIUM 136 mmol/L (137-145); Total Protein 7.3 g/dL (6.3-8.2)
[2021-03-06 11:03] LABS: Slide Review 1 YES
[2021-03-06 11:25] LABS: INFLUENZA A NEGATIVE (NEGATIVE); INFLUENZA B NEGATIVE (NEGATIVE); RESPIRATORY SYNCTIAL VIRUS NEGATIVE (Negative)
[2021-03-06 11:29] LABS: SARS-CoV-2 Xpert Express POSITIVE (NEGATIVE)
[2021-03-06] MEDS ORDERED: REMDESIVIR 200 MG in Sodium Chloride 0.9% 250 ML 250 ML IV ONE (11:44)
[2021-03-06] MEDS ORDERED: Zofran 4 MG/2 ML VIAL IV PRN (12:08)
[2021-03-06] MEDS ORDERED: TYLENOL 325 MG PO PRN (12:08)
[2021-03-06] MEDS ORDERED: Zanaflex 4 MG PO PRN (13:17)
[2021-03-06 13:24] LABS: Appearance CLEAR (CLEAR); Bacteria RARE /HPF (NEGATIVE); Bilirubin NEGATIVE (NEGATIVE); Blood NEGATIVE Ery/ul (0-5); Epithelial Cells RARE /HPF (FEW); Glucose 50 mg/dL (NEGATIVE); Ketones NEGATIVE (NEGATIVE); Leukocyte Esterase NEGATIVE (NEGATIVE); Nitrite NEGATIVE (NEGATIVE); Protein,Urine Dip 30 (Negative); Specific Gravity 1.018 (1.005-1.025); Urobilinogen 2 mg/dL (0-1); WBC 0-2 /HPF (0-5)
[2021-03-06] MEDS ORDERED: MEDICATION INTERVENTION MC SCH (13:45)
[2021-03-06] MEDS: ENOXAPARIN SODIUM SQ SCH (13:48)
[2021-03-06] MEDS: PROTONIX 40 MG IV IV SCH (13:48)
[2021-03-06] MEDS: DECADRON 10MG INJ. IV SCH (13:48)
--- NOTE | 2021-03-06 13:53 | PCM.HP ---
History of Present Illness - Chief Complaint Chief Complaint: sudden onset of shortness of breath for 1-2 days History of Present Illness: is a 60 year old female.with history of chronic respiratory failure secondary to COPD on 3 L oxygen, tobacco abuse presented in the ER with 2 days of worsening cough and shortness of breath with subjective feeling of fever and chills. Patient reports having shortness of breath initially with activity and now resting. Feels short of breath despite being on oxygen and saturation is around 91% on 3 L, given DuoNeb and Solu-Medrol by EMS and feeling a little better. She had a fever of 101 on presentation. Complaining of increased wheezing with chest tightness but no chest pain. Denies any known sick contact. Vaccinated for COVID-19. Timing/Duration: day(s) (2), constant, gradual onset, worse Activities at Onset: activity, rest Severity of Dyspnea-Max: moderate Severity of Dyspnea-Current: moderate Modifying Factors: Improves With: albuterol nebulizer, oxygen. Worsens With: activity, coughing, exertion Associated Symptoms: cough, fever, wheezing, productive cough, tightness, No chest pain/discomfort - Review of Systems Constitutional: No Fever, No Chills Eyes: No Symptoms Ears, Nose, & Throat: No Symptoms Respiratory: Cough, Orthopnea, Short Of Breath, Wheezing Cardiac: No Chest Pain, No Edema, No Syncope Abdominal/Gastrointestinal: No Abdominal Pain, No Nausea, No Vomiting, No Diarrhea Genitourinary Symptoms: No Dysuria Musculoskeletal: No Back Pain, No Neck Pain Skin: No Rash Neurological: No Dizziness, No Focal Weakness, No Sensory Changes Psychological: No Symptoms Endocrine: No Symptoms Hematologic/Lymphatic: No Symptoms Immunological/Allergic: No Symptoms Medications & Allergies Home Medications: Home Medication List ARIPiprazole [Aripiprazole] 5 mg PO DAILY 01/11/20 [History Confirmed 03/06/21] Carbamazepine 200 mg [Tegretol 200 MG] 400 mg PO UD 01/11/20 [History Confirmed 03/06/21] Duloxetine HCl 30 mg [Cymbalta 30 MG Capsule] 60 mg PO BID 01/11/20 [History Confirmed 03/06/21] Pregabalin [Lyrica] 300 mg PO BID 01/11/20 [History Confirmed 03/06/21] Tizanidine HCl 4 mg [Zanaflex 4 MG] 4 mg PO Q6H PRN PRN 01/11/20 [History Confirmed 03/06/21] Albuterol Sulfate [Proair Hfa] 2 puffs IH Q6H PRN PRN 06/30/20 [History Confirmed 03/06/21] Benazepril HCl 40 mg PO DAILY 06/30/20 [History Confirmed 03/06/21] Furosemide 40 mg [Lasix 40 MG] 80 tab PO BID 06/30/20 [History Confirmed 03/06/21] Levothyroxine Sodium 150 Mcg [Synthroid 150 Mcg] 150 mcg PO DAILY 06/30/20 [History Confirmed 03/06/21] Potassium Chloride 10 Meq Tab* [Klor Con 10 MEQ] 10 meq PO BID 06/30/20 [History Confirmed 03/06/21] Trazodone HCl 50 mg [Desyrel 50 mg] 200 mg PO HS 06/30/20 [History Confirmed 03/06/21] ALPRAZolam 0.25 MG [xanAX 0.25 MG] 0.25 mg PO TID 03/06/21 [History Confirmed 03/06/21] Budesonide/Formoterol Fumarate [Budesonide-Formoterol 160-4.5] 2 puff IH BID 03/06/21 [History Confirmed 03/06/21] Carbamazepine 200 mg [Tegretol 200 MG] 200 mg PO UD 03/06/21 [History Confirmed 03/06/21] Carvedilol 12.5 mg [Coreg 12.5 mg] 12.5 mg PO BID 03/06/21 [History Confirmed 03/06/21] Allergies/Adverse Reactions: Allergies Allergy/AdvReac Type Severity Reaction Status Date / Time No Known Drug Allergies Allergy Verified 03/06/21 12:18 - Past Medical History Past Medical History: Yes Neurological History: Peripheral Neuropathy ENT History: No Pertinent History Cardiac History: Congestive Heart Failure, Hypertension Respiratory History: Bronchitis, CHF, COPD, Pneumonia Endocrine Medical History: No Pertinent History Musculoskelatal History: No Pertinent History GI Medical History: No Pertinent History History: No Pertinent History Pyscho-Social History: No Pertinent History Reproductive Disorders: No Pertinent History Comment: pt unable to participate in admission documentation due to severe confusion, history taken off meds list - Past Surgical History Past Surgical History: Yes Neuro Surgical History: No Pertinent History Cardiac History: No Pertinent History Respiratory Surgery: No Pertinent History GI Surgical History: Appendectomy Genitourinary Surgical Hx: No Pertinent History Musculskeletal Surgical Hx: No Pertinent History Female Surgical History: No Pertinent History Other Surgical History: elbow surgery. skin cancer removed - Social History Smoking Status: Current every day smoker How long have you smoked: 20 yrs Exposure to second hand smoke: No Alcohol: None Drug Use: none - Physical Exam Vital Signs: Vital Signs - 24 hr Temp Pulse Resp BP Pulse Ox 03/06/21 11:48 95 03/06/21 11:03 99.0 F 75 20 164/83 96 03/06/21 10:09 99.0 F 81 20 153/81 97 03/06/21 09:01 99.3 F 86 20 152/77 93 L 03/06/21 08:26 85 24 95 03/06/21 07:48 101.0 F 90 24 162/85 95 General Appearance: no apparent distress, alert Neurologic Exam: alert, oriented x 3, cooperative, normal mood/affect, nml station & gait, sensation nml, No motor deficits Eye Exam: PERRL/EOMI, eyes nml inspection Ears, Nose, Throat Exam: normal ENT inspection, TMs normal, pharynx normal, moist mucous membranes Neck Exam: normal inspection, non-tender, supple, full range of motion Respiratory Exam: diminished breath sounds, crackles/rales, rhonchi, wheezing, No respiratory distress Cardiovascular Exam: regular rate/rhythm, normal heart sounds, normal peripheral pulses Gastrointestinal/Abdomen Exam: soft, normal bowel sounds, No tenderness, No mass Back Exam: normal inspection, normal range of motion, No CVA tenderness, No vertebral tenderness Extremity Exam: normal inspection, normal range of motion, pelvis stable Skin Exam: normal color, warm, dry, No rash Lymphatic Exam: No adenopathy Results - Labs Lab/Micro Results: Lab Results-Last 24 Hours 03/06/21 03/06/21 03/06/21 Range/Units 08:16 08:16 08:16 WBC 13.8 H (4.0-10.5) K/mm3 RBC 3.83 L (4.1-5.4) M/mm3 Hgb 11.4 L (12.0-16.0) gm/dl Hct 35.5 (35-47) % MCV 92.7 (78-100) fl MCH 29.8 (26-32) pg MCHC 32.1 (32-36) g/dl RDW 14.8 H (11.5-14.0) % Plt Count 226 (150-450) K/mm3 MPV 8.9 (7.5-11.0) fl Gran % 85.8 H (36.0-66.0) % Eos # (Auto) 0.17 (0-0.5) Absolute Lymphs (auto) 0.59 L (1.0-4.6) Absolute Monos (auto) 1.17 (0.0-1.3) Lymphocytes % 4.3 L (24.0-44.0) % Monocytes % 8.5 (0.0-12.0) % Eosinophils % 1.2 (0.00-5.0) % Basophils % 0.2 (0.0-0.4) % Absolute Granulocytes 11.88 H (1.4-6.9) Basophils # 0.03 (0-0.4) Sodium 136 L (137-145) mmol/L Potassium 3.4 L (3.5-5.1) mmol/L Chloride 97 L (98-107) mmol/L Carbon Dioxide 30 (22-30) mmol/L Anion Gap 12.3 (5-15) MEQ/L BUN 8 (7-17) mg/dL Creatinine 0.56 (0.52-1.04) mg/dL Estimated GFR > 60.0 ML/MIN Glucose 123 H (74-106) mg/dL Lactic Acid (0.4-2.0) Calcium 8.4 (8.4-10.2) mg/dL Magnesium 1.8 (1.6-2.3) mg/dL Total Bilirubin 1.00 (0.2-1.3) mg/dL AST 23 (14-36) U/L ALT 17 (0-35) U/L Alkaline Phosphatase 100 (38-126) U/L Troponin I < 0.012 (0.000-0.034) ng/mL NT-Pro-B Natriuret Pep 465 (0-900) pg/mL Serum Total Protein 7.3 (6.3-8.2) g/dL Albumin 3.9 (3.5-5.0) g/dL Procalcitonin (0.030-0.080) ng/mL Urine Color (YELLOW) Urine Appearance (CLEAR) Urine pH (5-6) Ur Specific [place] (1.005-1.025) Urine Protein (Negative) Urine Ketones (NEGATIVE) Urine Blood (0-5) [place]/ul Urine Nitrite (NEGATIVE) Urine Bilirubin (NEGATIVE) Urine Urobilinogen (0-1) mg/dL Ur Leukocyte Esterase (NEGATIVE) Urine WBC (Auto) (0-5) /HPF Urine RBC (Auto) (0-2) /HPF U Epithel Cells (Auto) (FEW) /HPF Urine Bacteria (Auto) (NEGATIVE) /HPF Urine Culture Reflexed (NO) Urine Glucose (NEGATIVE) mg/dL Influenza Type A Ag (NEGATIVE) Influenza Type B Ag (NEGATIVE) RSV (PCR) (Negative) SARS-CoV-2 (PCR) (NEGATIVE) Slides for Path Review YES 03/06/21 03/06/21 03/06/21 Range/Units 08:20 08:22 10:41 WBC (4.0-10.5) K/mm3 RBC (4.1-5.4) M/mm3 Hgb (12.0-16.0) gm/dl Hct (35-47) % MCV (78-100) fl MCH (26-32) pg MCHC (32-36) g/dl RDW (11.5-14.0) % Plt Count (150-450) K/mm3 MPV (7.5-11.0) fl Gran % (36.0-66.0) % Eos # (Auto) (0-0.5) Absolute Lymphs (auto) (1.0-4.6) Absolute Monos (auto) (0.0-1.3) Lymphocytes % (24.0-44.0) % Monocytes % (0.0-12.0) % Eosinophils % (0.00-5.0) % Basophils % (0.0-0.4) % Absolute Granulocytes (1.4-6.9) Basophils # (0-0.4) Sodium (137-145) mmol/L Potassium (3.5-5.1) mmol/L Chloride (98-107) mmol/L Carbon Dioxide (22-30) mmol/L Anion Gap (5-15) MEQ/L BUN (7-17) mg/dL Creatinine (0.52-1.04) mg/dL Estimated GFR ML/MIN Glucose (74-106) mg/dL Lactic Acid 0.6 (0.4-2.0) Calcium (8.4-10.2) mg/dL Magnesium (1.6-2.3) mg/dL Total Bilirubin (0.2-1.3) mg/dL AST (14-36) U/L ALT (0-35) U/L Alkaline Phosphatase (38-126) U/L Troponin I (0.000-0.034) ng/mL NT-Pro-B Natriuret Pep (0-900) pg/mL Serum Total Protein (6.3-8.2) g/dL Albumin (3.5-5.0) g/dL Procalcitonin 0.043 (0.030-0.080) ng/mL Urine Color (YELLOW) Urine Appearance (CLEAR) Urine pH (5-6) Ur Specific [place] (1.005-1.025) Urine Protein (Negative) Urine Ketones (NEGATIVE) Urine Blood (0-5) [place]/ul Urine Nitrite (NEGATIVE) Urine Bilirubin (NEGATIVE) Urine Urobilinogen (0-1) mg/dL Ur Leukocyte Esterase (NEGATIVE) Urine WBC (Auto) (0-5) /HPF Urine RBC (Auto) (0-2) /HPF U Epithel Cells (Auto) (FEW) /HPF Urine Bacteria (Auto) (NEGATIVE) /HPF Urine Culture Reflexed (NO) Urine Glucose (NEGATIVE) mg/dL Influenza Type A Ag NEGATIVE (NEGATIVE) Influenza Type B Ag NEGATIVE (NEGATIVE) RSV (PCR) NEGATIVE (Negative) SARS-CoV-2 (PCR) POSITIVE A (NEGATIVE) Slides for Path Review 03/06/21 03/06/21 Range/Units 11:23 11:54 WBC (4.0-10.5) K/mm3 RBC (4.1-5.4) M/mm3 Hgb (12.0-16.0) gm/dl Hct (35-47) % MCV (78-100) fl MCH (26-32) pg MCHC (32-36) g/dl RDW (11.5-14.0) % Plt Count (150-450) K/mm3 MPV (7.5-11.0) fl Gran % (36.0-66.0) % Eos # (Auto) (0-0.5) Absolute Lymphs (auto) (1.0-4.6) Absolute Monos (auto) (0.0-1.3) Lymphocytes % (24.0-44.0) % Monocytes % (0.0-12.0) % Eosinophils % (0.00-5.0) % Basophils % (0.0-0.4) % Absolute Granulocytes (1.4-6.9) Basophils # (0-0.4) Sodium (137-145) mmol/L Potassium (3.5-5.1) mmol/L Chloride (98-107) mmol/L Carbon Dioxide (22-30) mmol/L Anion Gap (5-15) MEQ/L BUN (7-17) mg/dL Creatinine (0.52-1.04) mg/dL Estimated GFR ML/MIN Glucose (74-106) mg/dL Lactic Acid (0.4-2.0) Calcium (8.4-10.2) mg/dL Magnesium (1.6-2.3) mg/dL Total Bilirubin (0.2-1.3) mg/dL AST (14-36) U/L ALT (0-35) U/L Alkaline Phosphatase (38-126) U/L Troponin I < 0.012 (0.000-0.034) ng/mL NT-Pro-B Natriuret Pep (0-900) pg/mL Serum Total Protein (6.3-8.2) g/dL Albumin (3.5-5.0) g/dL Procalcitonin (0.030-0.080) ng/mL Urine Color YELLOW (YELLOW) Urine Appearance CLEAR (CLEAR) Urine pH 6.0 (5-6) Ur Specific [place] 1.018 (1.005-1.025) Urine Protein 30 (Negative) Urine Ketones NEGATIVE (NEGATIVE) Urine Blood NEGATIVE (0-5) [place]/ul Urine Nitrite NEGATIVE (NEGATIVE) Urine Bilirubin NEGATIVE (NEGATIVE) Urine Urobilinogen 2 (0-1) mg/dL Ur Leukocyte Esterase NEGATIVE (NEGATIVE) Urine WBC (Auto) 0-2 (0-5) /HPF Urine RBC (Auto) 3-5 (0-2) /HPF U Epithel Cells (Auto) RARE (FEW) /HPF Urine Bacteria (Auto) RARE (NEGATIVE) /HPF Urine Culture Reflexed NO (NO) Urine Glucose 50 (NEGATIVE) mg/dL Influenza Type A Ag (NEGATIVE) Influenza Type B Ag (NEGATIVE) RSV (PCR) (Negative) SARS-CoV-2 (PCR) (NEGATIVE) Slides for Path Review - Radiology Impressions Radiology Exams & Impressions: Radiology Procedures Category Date Time Status CHEST 1 VIEW (PORTABLE) Stat Exams 03/06/21 08:02 Completed - Other Procedures and Tests Respiratory Therapy 03/06/21 12:08 Oxygen Nasal Cannula 4 lpm Respiratory Therapy Consult ROUTINE 03/06/21 12:41 Respiratory Therapy Assessment DAILY Assessment/Plan (1) COPD with exacerbation Current Visit: Yes Status: Acute Assessment & Plan: Allergies Allergy/AdvReac Type Severity Reaction Status Date / Time No Known Drug Allergies Allergy Verified 03/06/21 12:18 Vital Signs (Last 24 hours) Temp Pulse Resp BP Pulse Ox 03/06/21 11:48 95 03/06/21 11:03 99.0 F 75 20 164/83 96 03/06/21 10:09 99.0 F 81 20 153/81 97 03/06/21 09:01 99.3 F 86 20 152/77 93 L 03/06/21 08:26 85 24 95 03/06/21 07:48 101.0 F 90 24 162/85 95 Home Medications Medication Instructions Recorded Confirmed Last Taken Type ALPRAZolam 0.25 MG [xanAX 0.25 0.25 mg PO TID 03/06/21 03/06/21 Unknown History MG] Budesonide/Formoterol Fumarate 2 puff IH BID 03/06/21 03/06/21 Unknown History [Budesonide-Formoterol 160-4.5] Carbamazepine 200 mg [Tegretol 200 mg PO UD 03/06/21 03/06/21 Unknown History 200 MG] Carvedilol 12.5 mg [Coreg 12.5 12.5 mg PO BID 03/06/21 03/06/21 Unknown History mg] Current Medications Generic Name Dose Route Start Last Admin Trade Name Freq PRN Reason Stop Dose Admin Acetaminophen 650 mg 03/06/21 12:08 Acetaminophen 325 Mg Tablet PO 04/05/21 12:07 Q4H PRN PRN PAIN AND/OR FEVER Albuterol Sulfate 4 puff 03/06/21 15:00 Albuterol Common Canister Inhaler IH 04/05/21 14:59 QIDRT KIKO Alprazolam 0.25 mg 03/06/21 15:00 Alprazolam 0.25 Mg Tablet PO 04/05/21 14:59 TID KIKO Aripiprazole 5 mg 03/06/21 14:00 Aripiprazole 10 Mg Tablet PO 04/05/21 13:59 DAILY KIKO Benazepril HCl 40 mg 03/06/21 14:00 Benazepril Hcl 10 Mg Tablet PO 04/05/21 13:59 DAILY [facility] Carbamazepine 200 mg 03/06/21 17:00 Carbamazepine 200 Mg Tablet PO 04/05/21 16:59 [facility] Carbamazepine 400 mg 03/07/21 08:00 Carbamazepine 200 Mg Tablet PO 04/06/21 07:59 0800,1200 [facility] Carvedilol 12.5 mg 03/06/21 14:00 Carvedilol 12.5 Mg Tablet PO 04/05/21 13:59 BID KIKO Dexamethasone Sodium Phosphate 6 mg 03/06/21 13:00 03/06/21 13:48 Dexamethasone Sod Phosphate 10 Mg/Ml IV 04/05/21 12:59 6 mg DAILY KIKO Administration Duloxetine HCl 60 mg 03/06/21 14:00 Duloxetine Hcl 30 Mg Cap PO 04/05/21 13:59 BID [facility] Enoxaparin Sodium 40 mg 03/06/21 13:00 03/06/21 13:48 Enoxaparin Sodium 40 Mg/0.4 Ml Syringe SQ 04/05/21 12:59 40 mg DAILY KIKO Administration Furosemide 40 mg 03/06/21 17:00 Furosemide 40 Mg Tablet PO 04/05/21 16:59 BID DIURETIC [facility] Azithromycin 500 mg in 250 mls @ 250 mls/hr 03/07/21 10:00 Zithromax 500 Mg/ 250 Ml Nacl Premix IV 04/06/21 09:59 Q24H10 KIKO Ceftriaxone Sodium/Dextrose 1 g in 50 mls @ 100 mls/hr 03/07/21 10:00 Rocephin 1 Gm-D5w 50 Ml Bag IV 03/10/21 09:59 Q24H10 KIKO Remdesivir 100 mg/ Sodium 100 mls @ 100 mls/hr 03/07/21 10:00 Chloride IV 03/10/21 10:59 DAILY KIKO Levothyroxine Sodium 150 mcg 03/06/21 14:00 Levothyroxine Sodium 150 Mcg Tablet PO 04/05/21 13:59 DAILY KIKO Miscellaneous Information 1 each 03/06/21 13:45 Medication Intervention 1 Each Each 04/05/21 13:44 .RT TO CHECK ON KIKO Ondansetron HCl 4 mg 03/06/21 12:08 Ondansetron Hcl 4 Mg/2 Ml Vial IV 04/05/21 12:07 Q6H PRN PRN NAUSEA/VOMITING Pantoprazole Sodium 40 mg 03/06/21 13:00 03/06/21 13:48 Pantoprazole 40 Mg Vial IV 04/05/21 12:59 40 mg Q24H10 KIKO Administration Potassium Chloride 10 meq 03/06/21 14:00 Potassium Chloride 10 Meq Tablet PO 04/05/21 13:59 BID KIKO Pregabalin 300 mg 03/06/21 14:00 Pregabalin 150 Mg Capsule PO 04/05/21 13:59 BID KIKO Tizanidine HCl 4 mg 03/06/21 13:17 Tizanidine Hcl 4 Mg Tablet PO 04/05/21 13:16 Q6H PRN PRN PAIN Trazodone HCl 50 mg 03/06/21 22:00 Trazodone Hcl 50 Mg Tablet PO 04/05/21 21:59 HS KIKO Trazodone HCl 150 mg 03/06/21 22:00 Trazodone Hcl 150 Mg Tablet PO 04/05/21 21:59 HS KIKO Discontinued Medications Generic Name Dose Route Start Last Admin Trade Name Freq PRN Reason Stop Dose Admin Acetaminophen 975 mg 03/06/21 08:02 03/06/21 08:08 Acetaminophen 325 Mg Tablet PO 03/06/21 08:03 975 mg STAT STA Administration Acetaminophen Confirm 03/06/21 08:05 Acetaminophen 325 Mg Tablet Administered 03/06/21 08:06 Dose 975 mg .ROUTE .STK-MED ONE Albuterol/Ipratropium 3 ml 03/06/21 08:01 03/06/21 08:14 Ipratropium/Albuterol Sulfate 3 Ml Ampul.Neb IH 03/06/21 08:02 3 ml STAT ONE Administration Albuterol/Ipratropium Confirm 03/06/21 08:12 Ipratropium/Albuterol Sulfate 3 Ml Ampul.Neb Administered 03/06/21 08:13 Dose 3 ml IH .STK-MED ONE Azithromycin 500 mg in 250 mls @ 250 mls/hr 03/06/21 08:02 03/06/21 09:49 Zithromax 500 Mg/ 250 Ml Nacl Premix IV 03/06/21 09:01 Infused STAT STA Infusion Ceftriaxone Sodium/Dextrose 2 g in 50 mls @ 100 mls/hr 03/06/21 08:02 03/06/21 08:53 Rocephin 2 Gm-D5w 50ml Bag IV 03/06/21 08:31 Infused STAT STA Infusion Azithromycin Confirm 03/06/21 08:06 Zithromax 500 Mg/ 250 Ml Nacl Premix Administered 03/06/21 08:07 Dose 500 mg in 250 mls @ ud IV .STK-MED ONE Ceftriaxone Sodium/Dextrose Confirm 03/06/21 08:06 Rocephin 2 Gm-D5w 50ml Bag Administered 03/06/21 08:07 Dose 2 g in 50 mls @ ud IV .STK-MED ONE Remdesivir 200 mg/ Sodium 250 mls @ 125 mls/hr 03/06/21 11:44 03/06/21 13:45 Chloride IV 03/06/21 13:43 125 mls/hr ONCE ONE Administration Intake & Output (Last 24 hours) 03/04/21 03/05/21 03/06/21 03/07/21 11:59 11:59 11:59 11:59 Weight 96.5 kg Microbiology Results (Last 24 hours) 03/06/21 08:22 Blood Blood Culture Gram Stain - Pending 03/06/21 08:22 Blood Blood Culture - Pending 03/06/21 08:16 Blood Blood Culture Gram Stain - Pending 03/06/21 08:16 Blood Blood Culture - Pending Laboratory Results (Last 24 hours) 03/06/21 03/06/21 03/06/21 11:54 11:23 10:41 WBC RBC Hgb Hct MCV MCH MCHC RDW Plt Count MPV Gran % Eos # (Auto) Absolute Lymphs (auto) Absolute Monos (auto) Lymphocytes % Monocytes % Eosinophils % Basophils % Absolute Granulocytes Basophils # Sodium Potassium Chloride Carbon Dioxide Anion Gap BUN Creatinine Estimated GFR Glucose Lactic Acid Calcium Magnesium Total Bilirubin AST ALT Alkaline Phosphatase Troponin I < 0.012 NT-Pro-B Natriuret Pep Serum Total Protein Albumin Procalcitonin Urine Color YELLOW Urine Appearance CLEAR Urine pH 6.0 Ur Specific [place] 1.018 Urine Protein 30 Urine Ketones NEGATIVE Urine Blood NEGATIVE Urine Nitrite NEGATIVE Urine Bilirubin NEGATIVE Urine Urobilinogen 2 Ur Leukocyte Esterase NEGATIVE Urine WBC (Auto) 0-2 Urine RBC (Auto) 3-5 U Epithel Cells (Auto) RARE Urine Bacteria (Auto) RARE Urine Culture Reflexed NO Urine Glucose 50 Influenza Type A Ag NEGATIVE Influenza Type B Ag NEGATIVE RSV (PCR) NEGATIVE SARS-CoV-2 (PCR) POSITIVE A Slides for Path Review 03/06/21 03/06/21 03/06/21 08:22 08:20 08:16 WBC RBC Hgb Hct MCV MCH MCHC RDW Plt Count MPV Gran % Eos # (Auto) Absolute Lymphs (auto) Absolute Monos (auto) Lymphocytes % Monocytes % Eosinophils % Basophils % Absolute Granulocytes Basophils # Sodium Potassium Chloride Carbon Dioxide Anion Gap BUN Creatinine Estimated GFR Glucose Lactic Acid 0.6 Calcium Magnesium Total Bilirubin AST ALT Alkaline Phosphatase Troponin I < 0.012 NT-Pro-B Natriuret Pep Serum Total Protein Albumin Procalcitonin 0.043 Urine Color Urine Appearance Urine pH Ur Specific [place] Urine Protein Urine Ketones Urine Blood Urine Nitrite Urine Bilirubin Urine Urobilinogen Ur Leukocyte Esterase Urine WBC (Auto) Urine RBC (Auto) U Epithel Cells (Auto) Urine Bacteria (Auto) Urine Culture Reflexed Urine Glucose Influenza Type A Ag Influenza Type B Ag RSV (PCR) SARS-CoV-2 (PCR) Slides for Path Review 03/06/21 03/06/21 08:16 08:16 WBC 13.8 H RBC 3.83 L Hgb 11.4 L Hct 35.5 MCV 92.7 MCH 29.8 MCHC 32.1 RDW 14.8 H Plt Count 226 MPV 8.9 Gran % 85.8 H Eos # (Auto) 0.17 Absolute Lymphs (auto) 0.59 L Absolute Monos (auto) 1.17 Lymphocytes % 4.3 L Monocytes % 8.5 Eosinophils % 1.2 Basophils % 0.2 Absolute Granulocytes 11.88 H Basophils # 0.03 Sodium 136 L Potassium 3.4 L Chloride 97 L Carbon Dioxide 30 Anion Gap 12.3 BUN 8 Creatinine 0.56 Estimated GFR > 60.0 Glucose 123 H Lactic Acid Calcium 8.4 Magnesium 1.8 Total Bilirubin 1.00 AST 23 ALT 17 Alkaline Phosphatase 100 Troponin I NT-Pro-B Natriuret Pep 465 Serum Total Protein 7.3 Albumin 3.9 Procalcitonin Urine Color Urine Appearance Urine pH Ur Specific [place] Urine Protein Urine Ketones Urine Blood Urine Nitrite Urine Bilirubin Urine Urobilinogen Ur Leukocyte Esterase Urine WBC (Auto) Urine RBC (Auto) U Epithel Cells (Auto) Urine Bacteria (Auto) Urine Culture Reflexed Urine Glucose Influenza Type A Ag Influenza Type B Ag RSV (PCR) SARS-CoV-2 (PCR) Slides for Path Review YES Orders (Last 24 hours) Category Date Time Status Bedrest ROUTINE Activity 03/06/21 12:08 Active Up With Assistance ROUTINE Activity 03/06/21 12:08 Active Controlled Area Checker STAT Care 03/06/21 08:02 Completed Code Status Order ROUTINE Care 03/06/21 12:08 Active EKG-ER Only STAT Care 03/06/21 08:01 Completed Fall Protocol ROUTINE Care 03/06/21 12:08 Active IV Care Q6H Care 03/06/21 12:08 Active IV Insertion STAT Care 03/06/21 08:01 Completed Isolation, Initiate & Maintain Q6H Care 03/06/21 12:[address] in Observation ROUTINE Care 03/06/21 12:08 Active Weight,Daily 0600 Care 03/06/21 12:08 Active House Regular Diet Diet 03/06/21 Lunch Active CHEST 1 VIEW (PORTABLE) Stat Exams 03/06/21 08:02 Completed BLOOD CULTURE Stat Lab 03/06/21 08:22 Received CBC W DIFF AM.LAB Lab 03/07/21 04:00 Ordered CBC W DIFF Stat Lab 03/06/21 08:16 Completed CMP AM.LAB Lab 03/07/21 04:00 Ordered CMP Stat Lab 03/06/21 08:16 Completed Lactic Acid Stat Lab 03/06/21 08:20 Completed MAGNESIUM Stat Lab 03/06/21 08:16 Completed NT PRO BNP Stat Lab 03/06/21 08:16 Completed PROCALCITONIN Stat Lab 03/06/21 08:22 Completed TROPONIN Q3H Lab 03/06/21 08:16 Completed TROPONIN Q3H Lab 03/06/21 11:23 Completed TROPONIN Q3H Lab 03/06/21 14:15 Ordered TROPONIN Q3H Lab 03/06/21 17:15 Ordered TROPONIN Q3H Lab 03/06/21 20:15 Ordered UA W/RFX UR CULTURE Stat Lab 03/06/21 11:54 Completed ALPRAZolam 0.25 MG [xanAX 0.25 MG] Med 03/06/21 15:00 Active 0.25 mg PO TID Acetaminophen 325 mg [Tylenol 325 mg] Med 03/06/21 12:08 Active 650 mg PO Q4H PRN PRN Acetaminophen 325 mg [Tylenol 325 mg] Med 03/06/21 08:05 Discontinued 975 mg .ROUTE .STK-MED ONE Acetaminophen 325 mg [Tylenol 325 mg] Med 03/06/21 08:02 Discontinued 975 mg PO STAT STA Albuterol Common Canister [Ventolin Common Canister* Med 03/06/21 15:00 Active ] 4 puff IH QIDRT Albuterol/Ipratropium 3ml Neb* [DUONEB 0.5-3 MG/3 ml Med 03/06/21 08:12 Discontinued Neb] 3 ml IH .STK-MED ONE Albuterol/Ipratropium 3ml Neb* [DUONEB 0.5-3 MG/3 ml Med 03/06/21 08:01 Discontinued Neb] 3 ml IH STAT ONE Aripiprazole 10 mg [Abilify 10 MG] Med 03/06/21 14:00 Active 5 mg PO DAILY Azithromycin 500 mg/250 ml [Zithromax 500 MG/ 250 ML Med 03/07/21 10:00 Active NaCl Premix] 500 mg in 250 ml IV Q24H10 Azithromycin 500 mg/250 ml [Zithromax 500 MG/ 250 ML Med 03/06/21 08:02 Discontinued NaCl Premix] 500 mg in 250 ml IV STAT Azithromycin 500 mg/250 ml [Zithromax 500 MG/ 250 ML Med 03/06/21 08:06 Discontinued NaCl Premix] 500 mg in 250 ml IV UD Benazepril HCl 10 mg [Lotensin 10 MG] Med 03/06/21 14:00 Active 40 mg PO DAILY Carbamazepine 200 mg [Tegretol 200 MG] Med 03/06/21 17:00 Active 200 mg PO DINNER Carbamazepine 200 mg [Tegretol 200 MG] Med 03/07/21 08:00 Active 400 mg PO 0800,1200 Carvedilol 12.5 mg [Coreg 12.5 mg] Med 03/06/21 14:00 Active 12.5 mg PO BID Ceftriaxone 1 GM/50 ML PREMIX* [ROCEPHIN 1 Gm-D5w 50 ml Med 03/07/21 10:00 Active Bag] 1 g in 50 ml IV Q24H10 Ceftriaxone 2 GM/50 ML PREMIX* [ROCEPHIN 2 Gm-D5w 50ML Med 03/06/21 08:02 Discontinued BAG] 2 g in 50 ml IV STAT Ceftriaxone 2 GM/50 ML PREMIX* [ROCEPHIN 2 Gm-D5w 50ML Med 03/06/21 08:06 Discontinued BAG] 2 g in 50 ml IV UD Dexamethasone Sod Phosphate [Decadron 10Mg Inj.] Med 03/06/21 13:00 Active 6 mg IV DAILY Duloxetine HCl 30 mg [Cymbalta 30 MG Capsule] Med 03/06/21 14:00 Active 60 mg PO BID Enoxaparin Sodium [Enoxaparin Sodium] Med 03/06/21 13:00 Active 40 mg SQ DAILY Furosemide 40 mg [Lasix 40 MG] Med 03/06/21 17:00 Active 40 mg PO BID DIURETIC Levothyroxine Sodium 150 Mcg [Synthroid 150 Mcg] Med 03/06/21 14:00 Active 150 mcg PO DAILY Medication Intervention Med 03/06/21 13:45 Active 1 each MC .RT TO CHECK ON Ondansetron HCl 4 mg/2 ml [Zofran 4 MG/2 ML VIAL] Med 03/06/21 12:08 Active 4 mg IV Q6H PRN PRN Pantoprazole 40 mg [Protonix 40 mg IV] Med 03/06/21 13:00 Active 40 mg IV Q24H10 Potassium Chloride 10 Meq Tab* [Klor Con 10 MEQ] Med 03/06/21 14:00 Active 10 meq PO BID Pregabalin [Lyrica 150Mg] Med 03/06/21 14:00 Active 300 mg PO BID Remdesivir 100 mg Med 03/07/21 10:00 Active NaCl 0.9% 100Ml [Sodium Chloride 0.9% 100 ML BAG] 100 ml IV DAILY Remdesivir 200 mg Med 03/06/21 11:44 Discontinued NaCl 0.9% 250 ml [Sodium Chloride 0.9% 250 ML] 250 ml IV ONCE Tizanidine HCl 4 mg [Zanaflex 4 MG] Med 03/06/21 13:17 Active 4 mg PO Q6H PRN PRN Trazodone HCl 150 mg [Desyrel 150 MG] Med 03/06/21 22:00 Active 150 mg PO HS Trazodone HCl 50 mg [Desyrel 50 mg] Med 03/06/21 22:00 Active 50 mg PO HS Oxygen Nasal Cannula 4 lpm RT 03/06/21 12:08 Active Pulse Oximetry .continuos RT 03/06/21 12:40 Active Respiratory Therapy Assessment DAILY RT 03/06/21 08:26 Completed Respiratory Therapy Assessment DAILY RT 03/06/21 12:41 Active Respiratory Therapy Consult ROUTINE RT 03/06/21 12:08 Active Transfer Order Routine Transfer 03/06/21 Completed Code(s): J44.1 - CHRONIC OBSTRUCTIVE PULMONARY DISEASE W (ACUTE) EXACERBATION (2) COVID-19 virus detected Current Visit: Yes Status: Acute Code(s): U07.1 - COVID-19 (3) COVID-19 vaccine series completed Current Visit: Yes Status: Acute Code(s): Z92.29 - PERSONAL HISTORY OF OTHER DRUG THERAPY
[2021-03-06] MEDS: Cymbalta 30 MG Capsule PO SCH ×2 (14:27→21:45)
[2021-03-06] MEDS: Klor Con 10 MEQ PO SCH ×2 (14:28→21:45)
[2021-03-06] MEDS: COREG 12.5 MG PO SCH ×2 (14:28→21:45)
[2021-03-06] MEDS: xanAX 0.25 MG PO SCH ×2 (14:28→21:45)
[2021-03-06] MEDS: Lotensin 10 MG PO SCH (14:30)
[2021-03-06] MEDS: SYNTHROID 150 MCG PO SCH (14:30)
[2021-03-06] MEDS: Abilify 10 MG PO SCH (14:31)
[2021-03-06] MEDS: Tegretol 200 MG PO SCH ×2 (14:33→18:26)
[2021-03-06] MEDS: LYRICA 150MG PO SCH ×2 (14:39→21:45)
[2021-03-06] MEDS: VENTOLIN COMMON CANISTER IH SCH ×2 (15:25→20:15)
[2021-03-06] MEDS: Lasix 40 MG PO SCH ×2 (18:26→18:39)
[2021-03-06] MEDS: ADVAIR/WIXELLA 250-50 DISKUS 14 DOSE IH SCH (20:15)
[2021-03-06] MEDS: Desyrel 150 MG PO SCH (21:46)
[2021-03-06] MEDS: DESYREL 50 MG PO SCH (21:46)
[2021-03-06] MEDS ORDERED: NON-FORMULARY ITEM (Pregabalin [Lyrica] 300 MG Capsule) PO SCH (22:00)
[2021-03-06] MEDS ORDERED: NON-FORMULARY ITEM (Budesonide/Formoterol Fumarate [Budesonide-Formoterol 160-4.5] 10.2 GM IH SCH (22:00)
[2021-03-07 05:27] LABS: Hematocrit 33.7 % (35-47); Hemoglobin 10.7 gm/dl (12.0-16.0); Mean Cell Volume 94.7 fl (78-100); Mean Corpuscular Hemoglobin 30.1 pg (26-32); Mean Corpuscular Hgb Concent. 31.8 g/dl (32-36); Mean Platelet Volume 9.1 fl (7.5-11.0); Platelet Count 237 K/mm3 (150-450); Red Blood Count 3.56 M/mm3 (4.1-5.4); Red Cell Distribution Width 14.9 % (11.5-14.0); White Blood Count 11.8 K/mm3 (4.0-10.5)
[2021-03-07 05:49] LABS: ALBUMIN 3.6 g/dL (3.5-5.0); ALKALINE PHOSPHATASE 81 U/L (38-126); BLOOD UREA NITROGEN 12 mg/dL (7-17); CHLORIDE 99 mmol/L (98-107); Calcium 8.5 mg/dL (8.4-10.2); Carbon Dioxide 31 mmol/L (22-30); Creatinine 1 0.75 mg/dL (0.52-1.04); EST GLOMERULAR FILTRATION RATE > 60.0 ML/MIN; Glucose 82 mg/dL (74-106); Potassium 3.9 mmol/L (3.5-5.1); SGOT/AST 24 U/L (14-36); SGPT/ALT 18 U/L (0-35); SODIUM 136 mmol/L (137-145); Total Protein 6.9 g/dL (6.3-8.2)
[2021-03-07 07:22] LABS: Lymphocytes 15 % (24-44); Monocyte 6 % (0.0-12.0); Neutrophils 79 % (36.0-66.0); Platelet Estimate NORMAL (NORMAL); Total Cells Counted 100
[2021-03-07] MEDS: ADVAIR/WIXELLA 250-50 DISKUS 14 DOSE IH SCH ×2 (07:30→19:10)
[2021-03-07] MEDS: VENTOLIN COMMON CANISTER IH SCH ×4 (07:30→19:10)
[2021-03-07] MEDS: Tegretol 200 MG PO SCH ×3 (08:11→17:26)
[2021-03-07] MEDS: PROTONIX 40 MG IV IV SCH (09:08)
[2021-03-07] MEDS: xanAX 0.25 MG PO SCH ×3 (09:08→21:08)
[2021-03-07] MEDS: Lasix 40 MG PO SCH ×2 (09:08→17:27)
[2021-03-07] MEDS: Cymbalta 30 MG Capsule PO SCH ×2 (09:08→21:08)
[2021-03-07] MEDS: LYRICA 150MG PO SCH ×2 (09:08→21:08)
[2021-03-07] MEDS: ENOXAPARIN SODIUM SQ SCH (09:08)
[2021-03-07] MEDS: Klor Con 10 MEQ PO SCH ×2 (09:08→21:08)
[2021-03-07] MEDS: DECADRON 10MG INJ. IV SCH (09:08)
[2021-03-07] MEDS: COREG 12.5 MG PO SCH ×2 (09:08→21:08)
[2021-03-07] MEDS: Abilify 10 MG PO SCH (09:09)
[2021-03-07] MEDS: Lotensin 10 MG PO SCH (09:11)
[2021-03-07] MEDS: SYNTHROID 150 MCG PO SCH (09:11)
[2021-03-07] MEDS: ROCEPHIN 1 Gm-D5w 50 ml Bag** 1 G/50 ML IVPB IV SCH (09:14)
[2021-03-07] MEDS: Zithromax 500 MG/ 250 ML NaCl Premix 500 MG/250 ML IVPB IV SCH (09:50)
[2021-03-07] MEDS ORDERED: NON-FORMULARY ITEM (Aripiprazole [Aripiprazole] 5 MG Tablet) PO SCH (10:00)
[2021-03-07] MEDS ORDERED: NON-FORMULARY ITEM (Benazepril Hcl [Benazepril Hcl] 40 MG Tablet) PO SCH (10:00)
[2021-03-07] MEDS: REMDESIVIR 100 MG in Sodium Chloride 0.9% 100 ML BAG 100 ML IV SCH (11:10)
--- NOTE | 2021-03-07 17:03 | PCM.NOTE ---
Date and Time: 03/07/21 170 Subjective Assessment: doing better - Review of Systems Constitutional: No Fever, No Chills Eyes: No Symptoms Ears, Nose, & Throat: No Symptoms Respiratory: Cough, Orthopnea, Short Of Breath, Wheezing Cardiac: No Chest Pain, No Edema, No Syncope Abdominal/Gastrointestinal: No Abdominal Pain, No Nausea, No Vomiting, No Diarrhea Genitourinary Symptoms: No Dysuria Musculoskeletal: No Back Pain, No Neck Pain Skin: No Rash Neurological: No Dizziness, No Focal Weakness, No Sensory Changes Psychological: No Symptoms Endocrine: No Symptoms Hematologic/Lymphatic: No Symptoms Immunological/Allergic: No Symptoms Objective Exam General Appearance: no apparent distress, alert Neurologic Exam: alert, oriented x 3, cooperative, normal mood/affect, nml cerebellar function, sensation nml, No motor deficits Skin Exam: normal color, warm, dry Eye Exam: PERRL, EOMI, eyes nml inspection Ears, Nose, Throat Exam: normal ENT inspection, pharynx normal, moist mucous membranes Neck Exam: normal inspection, non-tender, supple, full range of motion Respiratory Exam: diminished breath sounds, crackles/rales, rhonchi, wheezing, No respiratory distress Cardiovascular Exam: regular rate/rhythm, normal heart sounds Gastrointestinal/Abdomen Exam: soft, No tenderness, No mass Extremity Exam: normal inspection, normal range of motion Back Exam: normal inspection, normal range of motion, No CVA tenderness, No vertebral tenderness Pelvic Exam: deferred Rectal Exam: deferred OBJECTIVE DATA Vital Signs: Vital Signs - 24 hr Temp Pulse Resp BP Pulse Ox 03/07/21 16:00 99.0 F 68 17 149/76 93 L 03/07/21 15:00 84 21 03/07/21 14:00 66 16 03/07/21 13:00 65 17 03/07/21 12:25 60 16 95 03/07/21 12:00 97.5 F 66 18 110/59 89 L 03/07/21 11:56 16 03/07/21 11:00 65 15 95 03/07/21 10:00 77 18 91 L 03/07/21 09:00 72 11 L 89 L 03/07/21 08:26 65 20 94 L 03/07/21 08:00 98.6 F 65 18 146/65 91 L 03/07/21 07:00 61 18 95 03/07/21 05:52 97.6 F 61 16 93 L 03/07/21 05:00 97.3 F 72 16 126/60 92 L 03/07/21 04:00 98.7 F 62 16 150/60 96 03/07/21 03:00 98.2 F 76 16 96 03/07/21 02:00 98.2 F 66 16 148/60 99 03/07/21 01:00 78 22 96 03/07/21 00:00 98.2 F 58 L 13 148/60 99 03/06/21 23:00 98.2 F 56 L 14 148/60 96 03/06/21 21:57 86 21 95 03/06/21 21:56 19 03/06/21 21:00 69 19 94 L 03/06/21 20:15 67 26 H 96 03/06/21 19:49 12 03/06/21 19:46 98.2 F 69 12 138/65 94 L 03/06/21 19:00 78 18 03/06/21 18:00 68 18 95 Pain Assessment - Last Documented Pain Intensity 0 Intake and Output: Intake & Output 03/05/21 03/06/21 03/07/21 03/08/21 11:59 11:59 11:59 11:59 Intake Total 1680 560 Balance 1680 560 Weight 96.5 kg 96.5 kg Lab Results: Lab Results-Last 24 Hours 03/07/21 03/07/21 03/07/21 Range/Units 05:00 05:00 05:00 WBC 11.8 H (4.0-10.5) K/mm3 RBC 3.56 L (4.1-5.4) M/mm3 Hgb 10.7 L (12.0-16.0) gm/dl Hct 33.7 L (35-47) % MCV 94.7 (78-100) fl MCH 30.1 (26-32) pg MCHC 31.8 L (32-36) g/dl RDW 14.9 H (11.5-14.0) % Plt Count 237 (150-450) K/mm3 MPV 9.1 (7.5-11.0) fl Segmented Neutrophils 79 H (36.0-66.0) % Lymphocytes (Manual) 15 L (24-44) % Monocytes (Manual) 6 (0.0-12.0) % Platelet Estimate NORMAL (NORMAL) RBC Morphology NORMAL D-Dimer 291 (215-500) ng/mL Sodium 136 L (137-145) mmol/L Potassium 3.9 (3.5-5.1) mmol/L Chloride 99 (98-107) mmol/L Carbon Dioxide 31 H (22-30) mmol/L Anion Gap 10.0 (5-15) MEQ/L BUN 12 (7-17) mg/dL Creatinine 0.75 (0.52-1.04) mg/dL Estimated GFR > 60.0 ML/MIN Glucose 82 (74-106) mg/dL Calcium 8.5 (8.4-10.2) mg/dL Total Bilirubin 0.50 (0.2-1.3) mg/dL AST 24 (14-36) U/L ALT 18 (0-35) U/L Alkaline Phosphatase 81 (38-126) U/L Serum Total Protein 6.9 (6.3-8.2) g/dL Albumin 3.6 (3.5-5.0) g/dL Radiology Exams: Radiology Procedures Category Date Time Status CHEST 1 VIEW (PORTABLE) Stat Exams 03/06/21 08:02 Completed Assessment/Plan (1) COPD with exacerbation Current Visit: Yes Status: Acute Assessment & Plan: Chief Complaint Diagnosis COVID + Allergies Allergy/AdvReac Type Severity Reaction Status Date / Time No Known Drug Allergies Allergy Verified 03/06/21 12:18 Vital Signs (Last 24 hours) Temp Pulse Resp BP Pulse Ox 03/07/21 16:00 99.0 F 68 17 149/76 93 L 03/07/21 15:00 84 21 03/07/21 14:00 66 16 03/07/21 13:00 65 17 03/07/21 12:25 60 16 95 03/07/21 12:00 97.5 F 66 18 110/59 89 L 03/07/21 11:56 16 03/07/21 11:00 65 15 95 03/07/21 10:00 77 18 91 L 03/07/21 09:00 72 11 L 89 L 03/07/21 08:26 65 20 94 L 03/07/21 08:00 98.6 F 65 18 146/65 91 L 03/07/21 07:00 61 18 95 03/07/21 05:52 97.6 F 61 16 93 L 03/07/21 05:00 97.3 F 72 16 126/60 92 L 03/07/21 04:00 98.7 F 62 16 150/60 96 03/07/21 03:00 98.2 F 76 16 96 03/07/21 02:00 98.2 F 66 16 148/60 99 03/07/21 01:00 78 22 96 03/07/21 00:00 98.2 F 58 L 13 148/60 99 03/06/21 23:00 98.2 F 56 L 14 148/60 96 03/06/21 21:57 86 21 95 03/06/21 21:56 19 03/06/21 21:00 69 19 94 L 03/06/21 20:15 67 26 H 96 03/06/21 19:49 12 03/06/21 19:46 98.2 F 69 12 138/65 94 L 03/06/21 19:00 78 18 03/06/21 18:00 68 18 95 Home Medications Medication Instructions Recorded Confirmed Last Taken Type ALPRAZolam 0.25 MG [xanAX 0.25 0.25 mg PO TID 03/06/21 03/06/21 Unknown History MG] Budesonide/Formoterol Fumarate 2 puff IH BID 03/06/21 03/06/21 Unknown History [Budesonide-Formoterol 160-4.5] Carbamazepine 200 mg [Tegretol 200 mg PO UD 03/06/21 03/06/21 Unknown History 200 MG] Carvedilol 12.5 mg [Coreg 12.5 12.5 mg PO BID 03/06/21 03/06/21 Unknown History mg] Current Medications Generic Name Dose Route Start Last Admin Trade Name Freq PRN Reason Stop Dose Admin Acetaminophen 650 mg 03/06/21 12:08 Acetaminophen 325 Mg Tablet PO 04/05/21 12:07 Q4H PRN PRN PAIN AND/OR FEVER Albuterol Sulfate 4 puff 03/06/21 15:00 03/07/21 11:55 Albuterol Common Canister Inhaler IH 04/05/21 14:59 4 puff QIDRT KIKO Administration Alprazolam 0.25 mg 03/06/21 15:00 03/07/21 14:15 Alprazolam 0.25 Mg Tablet PO 04/05/21 14:59 0.25 mg TID KIKO Administration Aripiprazole 5 mg 03/06/21 14:00 03/07/21 09:09 Aripiprazole 10 Mg Tablet PO 04/05/21 13:59 5 mg DAILY KIKO Administration Benazepril HCl 40 mg 03/06/21 14:00 03/07/21 09:11 Benazepril Hcl 10 Mg Tablet PO 04/05/21 13:59 40 mg DAILY KIKO Administration Carbamazepine 200 mg 03/06/21 17:00 03/06/21 18:26 Carbamazepine 200 Mg Tablet PO 04/05/21 16:59 200 mg DINNER KIKO Administration Carbamazepine 400 mg 03/07/21 08:00 03/07/21 11:46 Carbamazepine 200 Mg Tablet PO 04/06/21 07:59 400 mg 0800,1200 KIKO Administration Carvedilol 12.5 mg 03/06/21 14:00 03/07/21 09:08 Carvedilol 12.5 Mg Tablet PO 04/05/21 13:59 12.5 mg BID KIKO Administration Dexamethasone Sodium Phosphate 6 mg 03/06/21 13:00 03/07/21 09:08 Dexamethasone Sod Phosphate 10 Mg/Ml IV 04/05/21 12:59 6 mg DAILY KIKO Administration Duloxetine HCl 60 mg 03/06/21 14:00 03/07/21 09:08 Duloxetine Hcl 30 Mg Cap PO 04/05/21 13:59 60 mg BID KIKO Administration Enoxaparin Sodium 40 mg 03/06/21 13:00 03/07/21 09:08 Enoxaparin Sodium 40 Mg/0.4 Ml Syringe SQ 04/05/21 12:59 40 mg DAILY KIKO Administration Furosemide 40 mg 03/06/21 17:00 03/07/21 09:08 Furosemide 40 Mg Tablet PO 04/05/21 16:59 40 mg BID DIURETIC KIKO Administration Azithromycin 500 mg in 250 mls @ 250 mls/hr 03/07/21 10:00 03/07/21 09:50 Zithromax 500 Mg/ 250 Ml Nacl Premix IV 04/06/21 09:59 250 mls/hr Q24H10 KIKO Administration Ceftriaxone Sodium/Dextrose 1 g in 50 mls @ 100 mls/hr 03/07/21 10:00 03/07/21 09:14 Rocephin 1 Gm-D5w 50 Ml Bag IV 03/10/21 09:59 100 mls/hr Q24H10 KIKO Administration Remdesivir 100 mg/ Sodium 100 mls @ 100 mls/hr 03/07/21 10:00 03/07/21 11:10 Chloride IV 03/10/21 10:59 100 mls/hr DAILY KIKO Administration Levothyroxine Sodium 150 mcg 03/06/21 14:00 03/07/21 09:11 Levothyroxine Sodium 150 Mcg Tablet PO 04/05/21 13:59 150 mcg DAILY KIKO Administration Ondansetron HCl 4 mg 03/06/21 12:08 03/06/21 14:28 Ondansetron Hcl 4 Mg/2 Ml Vial IV 04/05/21 12:07 4 mg Q6H PRN PRN Administration NAUSEA/VOMITING Pantoprazole Sodium 40 mg 03/06/21 13:00 03/07/21 09:08 Pantoprazole 40 Mg Vial IV 04/05/21 12:59 40 mg Q24H10 KIKO Administration Potassium Chloride 10 meq 03/06/21 14:00 03/07/21 09:08 Potassium Chloride 10 Meq Tablet PO 04/05/21 13:59 10 meq BID KIKO Administration Pregabalin 300 mg 03/06/21 14:00 03/07/21 09:08 Pregabalin 150 Mg Capsule PO 04/05/21 13:59 300 mg BID KIKO Administration Fluticasone/Salmeterol 1 each 03/06/21 19:00 03/07/21 07:30 Fluticasone/Salmeterol 250/50 Diskus IH 04/05/21 18:59 1 each BIDRT KIKO Administration Tizanidine HCl 4 mg 03/06/21 13:17 Tizanidine Hcl 4 Mg Tablet PO 04/05/21 13:16 Q6H PRN PRN PAIN Trazodone HCl 50 mg 03/06/21 22:00 03/06/21 21:46 Trazodone Hcl 50 Mg Tablet PO 04/05/21 21:59 50 mg HS KIKO Administration Trazodone HCl 150 mg 03/06/21 22:00 03/06/21 21:46 Trazodone Hcl 150 Mg Tablet PO 04/05/21 21:59 150 mg HS KIKO Administration Discontinued Medications Generic Name Dose Route Start Last Admin Trade Name Graciela PRPietro Reason Stop Dose Admin Acetaminophen 975 mg 03/06/21 08:02 03/06/21 08:08 Acetaminophen 325 Mg Tablet PO 03/06/21 08:03 975 mg STAT STA Administration Acetaminophen Confirm 03/06/21 08:05 Acetaminophen 325 Mg Tablet Administered 03/06/21 08:06 Dose 975 mg .ROUTE .STK-MED ONE Albuterol/Ipratropium 3 ml 03/06/21 08:01 03/06/21 08:14 Ipratropium/Albuterol Sulfate 3 Ml Ampul.Neb IH 03/06/21 08:02 3 ml STAT ONE Administration Albuterol/Ipratropium Confirm 03/06/21 08:12 Ipratropium/Albuterol Sulfate 3 Ml Ampul.Neb Administered 03/06/21 08:13 Dose 3 ml IH .STK-MED ONE Azithromycin 500 mg in 250 mls @ 250 mls/hr 03/06/21 08:02 03/06/21 09:49 Zithromax 500 Mg/ 250 Ml Nacl Premix IV 03/06/21 09:01 Infused STAT STA Infusion Ceftriaxone Sodium/Dextrose 2 g in 50 mls @ 100 mls/hr 03/06/21 08:02 03/06/21 08:53 Rocephin 2 Gm-D5w 50ml Bag IV 03/06/21 08:31 Infused STAT STA Infusion Azithromycin Confirm 03/06/21 08:06 Zithromax 500 Mg/ 250 Ml Nacl Premix Administered 03/06/21 08:07 Dose 500 mg in 250 mls @ ud IV .STK-MED ONE Ceftriaxone Sodium/Dextrose Confirm 03/06/21 08:06 Rocephin 2 Gm-D5w 50ml Bag Administered 03/06/21 08:07 Dose 2 g in 50 mls @ ud IV .STK-MED ONE Remdesivir 200 mg/ Sodium 250 mls @ 125 mls/hr 03/06/21 11:44 03/06/21 13:45 Chloride IV 03/06/21 13:43 125 mls/hr ONCE ONE Administration Miscellaneous Information 1 each 03/06/21 13:45 Medication Intervention 1 Each Each 04/05/21 13:44 .RT TO CHECK ON KIKO Intake & Output (Last hours) 03/05/21 03/06/21 03/07/21 03/08/21 11:59 11:59 11:59 11:59 Intake Total 1680 560 Balance 1680 560 Weight 96.5 kg 96.5 kg Laboratory Results (Last 24 hours) 03/07/21 03/07/21 03/07/21 05:00 05:00 05:00 WBC 11.8 H RBC 3.56 L Hgb 10.7 L Hct 33.7 L MCV 94.7 MCH 30.1 MCHC 31.8 L RDW 14.9 H Plt Count 237 MPV 9.1 Segmented Neutrophils 79 H Lymphocytes (Manual) 15 L Monocytes (Manual) 6 Platelet Estimate NORMAL RBC Morphology NORMAL D-Dimer 291 Sodium 136 L Potassium 3.9 Chloride 99 Carbon Dioxide 31 H Anion Gap 10.0 BUN 12 Creatinine 0.75 Estimated GFR > 60.0 Glucose 82 Calcium 8.5 Total Bilirubin 0.50 AST 24 ALT 18 Alkaline Phosphatase 81 Serum Total Protein 6.9 Albumin 3.6 Orders (Last 24 hours) Category Date Time Status CBC W DIFF AM.LAB Lab 03/07/21 05:00 Completed CMP AM.LAB Lab 03/07/21 05:00 Completed D-DIMER QUANTITATIVE Routine Lab 03/07/21 05:00 Completed Manual Differential NC Routine Lab 03/07/21 05:00 Completed Azithromycin 500 mg/250 ml [Zithromax 500 MG/ 250 ML Med 03/07/21 10:00 Active NaCl Premix] 500 mg in 250 ml IV Q24H10 Carbamazepine 200 mg [Tegretol 200 MG] Med 03/06/21 17:00 Active 200 mg PO DINNER Carbamazepine 200 mg [Tegretol 200 MG] Med 03/07/21 08:00 Active 400 mg PO 0800,1200 Ceftriaxone 1 GM/50 ML PREMIX* [ROCEPHIN 1 Gm-D5w 50 ml Med 03/07/21 10:00 Active Bag] 1 g in 50 ml IV Q24H10 Fluticasone/Salmeterol Disc [Advair/[place] 250-50 Med 03/06/21 19:00 Active Diskus 14 Dose] 1 each IH BIDRT Furosemide 40 mg [Lasix 40 MG] Med 03/06/21 17:00 Active 40 mg PO BID DIURETIC Remdesivir 100 mg Med 03/07/21 10:00 Active NaCl 0.9% 100Ml [Sodium Chloride 0.9% 100 ML BAG] 100 ml IV DAILY Trazodone HCl 150 mg [Desyrel 150 MG] Med 03/06/21 22:00 Active 150 mg PO HS Trazodone HCl 50 mg [Desyrel 50 mg] Med 03/06/21 22:00 Active 50 mg PO HS Patient Care Notes (Last 24 hours) 03/07/21 12:35 Nursing Note by Liana Barnes Dr. in and made rounds. Clarified if MD wanted patient to continue on antibiotics and Remdesivir. Dr. Mendoza states to continue all meds as ordered. No acute distress noted. Will monitor. Initialized on 03/07/21 12:35 - END OF NOTE 03/07/21 05:21 Nursing Note by Charlene Monte Patient Oxygen saturation 96% on4L. Decreased O2 to 3L NC which is pts at home baseline. Patient is satting 94% on 3L. Initialized on 03/07/21 05:21 - END OF NOTE Code(s): J44.1 - CHRONIC OBSTRUCTIVE PULMONARY DISEASE W (ACUTE) EXACERBATION (2) COVID-19 virus detected Current Visit: Yes Status: Acute Code(s): U07.1 - COVID-19 (3) COVID-19 vaccine series completed Current Visit: Yes Status: Acute Code(s): Z92.29 - PERSONAL HISTORY OF OTHER DRUG THERAPY
[2021-03-07] MEDS: DESYREL 50 MG PO SCH (21:08)
[2021-03-07] MEDS: Desyrel 150 MG PO SCH (21:08)
[2021-03-08] MEDS: VENTOLIN COMMON CANISTER IH SCH ×3 (07:57→15:11)
[2021-03-08] MEDS: ADVAIR/WIXELLA 250-50 DISKUS 14 DOSE IH SCH (07:58)
[2021-03-08] MEDS: Tegretol 200 MG PO SCH ×3 (08:00→18:29)
[2021-03-08] MEDS: Abilify 10 MG PO SCH (08:49)
[2021-03-08] MEDS: Lotensin 10 MG PO SCH (08:49)
[2021-03-08] MEDS: SYNTHROID 150 MCG PO SCH (08:49)
[2021-03-08] MEDS: Lasix 40 MG PO SCH ×2 (08:51→18:29)
[2021-03-08] MEDS: Cymbalta 30 MG Capsule PO SCH (08:51)
[2021-03-08] MEDS: LYRICA 150MG PO SCH (08:51)
[2021-03-08] MEDS: xanAX 0.25 MG PO SCH ×2 (08:51→18:29)
[2021-03-08] MEDS: COREG 12.5 MG PO SCH (08:51)
[2021-03-08] MEDS: Klor Con 10 MEQ PO SCH (08:51)
[2021-03-08] MEDS: DECADRON 10MG INJ. IV SCH (08:52)
[2021-03-08] MEDS: PROTONIX 40 MG IV IV SCH (08:52)
[2021-03-08] MEDS: ENOXAPARIN SODIUM SQ SCH (08:53)
[2021-03-08] MEDS: REMDESIVIR 100 MG in Sodium Chloride 0.9% 100 ML BAG 100 ML IV SCH (08:54)
[2021-03-08] MEDS: Zithromax 500 MG/ 250 ML NaCl Premix 500 MG/250 ML IVPB IV SCH (08:54)
[2021-03-08] MEDS: ROCEPHIN 1 Gm-D5w 50 ml Bag** 1 G/50 ML IVPB IV SCH (08:54)
[2021-03-08 12:53] VITALS: BP 169/79; PULSE 68
[2021-03-08 15:13] VITALS: O2SAT 93
--- NOTE | 2021-03-08 17:23 | PCM.DS ---
Discharge Summary Date of Admission: 03/06/21 12:05 Admitting Physician: CLARENCE RINCON Primary Care Provider: KADEN SCHAFER NP Allergies Allergies No Known Drug Allergies Allergy (Verified 03/06/21 12:18) Hospital Summary - Hospital Course Hospital Course: Chief Complaint Diagnosis COVID + Allergies Allergy/AdvReac Type Severity Reaction Status Date / Time No Known Drug Allergies Allergy Verified 03/06/21 12:18 Vital Signs (Last 24 hours) Temp Pulse Resp BP Pulse Ox 03/08/21 15:12 93 L 03/08/21 12:00 98.4 F 68 12 169/79 89 L 03/08/21 11:19 70 18 93 L 03/08/21 10:00 69 17 93 L 03/08/21 09:24 17 03/08/21 08:00 98.4 F 71 17 183/77 92 L 03/08/21 07:59 76 18 91 L 03/08/21 05:52 73 11 L 160/79 97 03/08/21 04:00 98.7 F 71 15 95 03/08/21 01:55 76 10 L 95 03/07/21 23:50 99.0 F 75 15 160/79 93 L 03/07/21 22:00 72 15 92 L 03/07/21 19:47 98.8 F 70 23 140/67 93 L 03/07/21 19:10 74 10 L 94 L 03/07/21 19:00 75 30 H 93 L 03/07/21 18:00 69 27 H 93 L 03/07/21 17:32 22 Home Medications Medication Instructions Recorded Confirmed Last Taken Type ALPRAZolam 0.25 MG [xanAX 0.25 0.25 mg PO TID 03/06/21 03/06/21 Unknown History MG] Budesonide/Formoterol Fumarate 2 puff IH BID 03/06/21 03/06/21 Unknown History [Budesonide-Formoterol 160-4.5] Carbamazepine 200 mg [Tegretol 200 mg PO UD 03/06/21 03/06/21 Unknown History 200 MG] Carvedilol 12.5 mg [Coreg 12.5 12.5 mg PO BID 03/06/21 03/06/21 Unknown History mg] Amoxicillin/Potassium Clav 1 tab PO Q12H 5 Days #10 tab 03/08/21 Unknown Rx [Augmentin Xr 1,000-62.5 Tab] Current Medications Generic Name Dose Route Start Last Admin Trade Name Freq PRN Reason Stop Dose Admin Acetaminophen 650 mg 03/06/21 12:08 Acetaminophen 325 Mg Tablet PO 04/05/21 12:07 Q4H PRN PRN PAIN AND/OR FEVER Albuterol Sulfate 4 puff 03/06/21 15:00 03/08/21 15:11 Albuterol Common Canister Inhaler IH 04/05/21 14:59 4 puff QIDRT KIKO Administration Alprazolam 0.25 mg 03/06/21 15:00 03/08/21 08:51 Alprazolam 0.25 Mg Tablet PO 04/05/21 14:59 0.25 mg TID KIKO Administration Aripiprazole 5 mg 03/06/21 14:00 03/08/21 08:49 Aripiprazole 10 Mg Tablet PO 04/05/21 13:59 5 mg DAILY KIKO Administration Benazepril HCl 40 mg 03/06/21 14:00 03/08/21 08:49 Benazepril Hcl 10 Mg Tablet PO 04/05/21 13:59 40 mg DAILY KIKO Administration Carbamazepine 200 mg 03/06/21 17:00 03/07/21 17:26 Carbamazepine 200 Mg Tablet PO 04/05/21 16:59 200 mg DINNER KIKO Administration Carbamazepine 400 mg 03/07/21 08:00 03/08/21 08:00 Carbamazepine 200 Mg Tablet PO 04/06/21 07:59 400 mg 0800,1200 KIKO Administration Carvedilol 12.5 mg 03/06/21 14:00 03/08/21 08:51 Carvedilol 12.5 Mg Tablet PO 04/05/21 13:59 12.5 mg BID KIKO Administration Dexamethasone Sodium Phosphate 6 mg 03/06/21 13:00 03/08/21 08:52 Dexamethasone Sod Phosphate 10 Mg/Ml IV 04/05/21 12:59 6 mg DAILY KIKO Administration Duloxetine HCl 60 mg 03/06/21 14:00 03/08/21 08:51 Duloxetine Hcl 30 Mg Cap PO 04/05/21 13:59 60 mg BID KIKO Administration Enoxaparin Sodium 40 mg 03/06/21 13:00 03/08/21 08:53 Enoxaparin Sodium 40 Mg/0.4 Ml Syringe SQ 04/05/21 12:59 40 mg DAILY KIKO Administration Furosemide 40 mg 03/06/21 17:00 03/08/21 08:51 Furosemide 40 Mg Tablet PO 04/05/21 16:59 40 mg BID DIURETIC KIKO Administration Azithromycin 500 mg in 250 mls @ 250 mls/hr 03/07/21 10:00 03/08/21 08:54 Zithromax 500 Mg/ 250 Ml Nacl Premix IV 04/06/21 09:59 250 mls/hr Q24H10 KIKO Administration Ceftriaxone Sodium/Dextrose 1 g in 50 mls @ 100 mls/hr 03/07/21 10:00 03/08/21 08:54 Rocephin 1 Gm-D5w 50 Ml Bag IV 03/10/21 09:59 100 mls/hr Q24H10 KIKO Administration Remdesivir 100 mg/ Sodium 100 mls @ 100 mls/hr 03/07/21 10:00 03/08/21 08:54 Chloride IV 03/10/21 10:59 100 mls/hr DAILY KIKO Administration Levothyroxine Sodium 150 mcg 03/06/21 14:00 03/08/21 08:49 Levothyroxine Sodium 150 Mcg Tablet PO 04/05/21 13:59 150 mcg DAILY KIKO Administration Ondansetron HCl 4 mg 03/06/21 12:08 03/06/21 14:28 Ondansetron Hcl 4 Mg/2 Ml Vial IV 04/05/21 12:07 4 mg Q6H PRN PRN Administration NAUSEA/VOMITING Pantoprazole Sodium 40 mg 03/06/21 13:00 03/08/21 08:52 Pantoprazole 40 Mg Vial IV 04/05/21 12:59 40 mg Q24H10 KIKO Administration Potassium Chloride 10 meq 03/06/21 14:00 03/08/21 08:51 Potassium Chloride 10 Meq Tablet PO 04/05/21 13:59 10 meq BID KIKO Administration Pregabalin 300 mg 03/06/21 14:00 03/08/21 08:51 Pregabalin 150 Mg Capsule PO 04/05/21 13:59 300 mg BID KIKO Administration Fluticasone/Salmeterol 1 each 03/06/21 19:00 03/08/21 07:58 Fluticasone/Salmeterol 250/50 Diskus IH 04/05/21 18:59 1 each BIDRT KIKO Administration Tizanidine HCl 4 mg 03/06/21 13:17 Tizanidine Hcl 4 Mg Tablet PO 04/05/21 13:16 Q6H PRN PRN PAIN Trazodone HCl 50 mg 03/06/21 22:00 03/07/21 21:08 Trazodone Hcl 50 Mg Tablet PO 04/05/21 21:59 50 mg HS KIKO Administration Trazodone HCl 150 mg 03/06/21 22:00 03/07/21 21:08 Trazodone Hcl 150 Mg Tablet PO 04/05/21 21:59 150 mg HS KIKO Administration Discontinued Medications Generic Name Dose Route Start Last Admin Trade Name Freq PRN Reason Stop Dose Admin Acetaminophen 975 mg 03/06/21 08:02 03/06/21 08:08 Acetaminophen 325 Mg Tablet PO 03/06/21 08:03 975 mg STAT STA Administration Acetaminophen Confirm 03/06/21 08:05 Acetaminophen 325 Mg Tablet Administered 03/06/21 08:06 Dose 975 mg .ROUTE .STK-MED ONE Albuterol/Ipratropium 3 ml 03/06/21 08:01 03/06/21 08:14 Ipratropium/Albuterol Sulfate 3 Ml Ampul.Neb IH 03/06/21 08:02 3 ml STAT ONE Administration Albuterol/Ipratropium Confirm 03/06/21 08:12 Ipratropium/Albuterol Sulfate 3 Ml Ampul.Neb Administered 03/06/21 08:13 Dose 3 ml IH .STK-MED ONE Azithromycin 500 mg in 250 mls @ 250 mls/hr 03/06/21 08:02 03/06/21 09:49 Zithromax 500 Mg/ 250 Ml Nacl Premix IV 03/06/21 09:01 Infused STAT STA Infusion Ceftriaxone Sodium/Dextrose 2 g in 50 mls @ 100 mls/hr 03/06/21 08:02 03/06/21 08:53 Rocephin 2 Gm-D5w 50ml Bag IV 03/06/21 08:31 Infused STAT STA Infusion Azithromycin Confirm 03/06/21 08:06 Zithromax 500 Mg/ 250 Ml Nacl Premix Administered 03/06/21 08:07 Dose 500 mg in 250 mls @ ud IV .STK-MED ONE Ceftriaxone Sodium/Dextrose Confirm 03/06/21 08:06 Rocephin 2 Gm-D5w 50ml Bag Administered 03/06/21 08:07 Dose 2 g in 50 mls @ ud IV .STK-MED ONE Remdesivir 200 mg/ Sodium 250 mls @ 125 mls/hr 03/06/21 11:44 03/06/21 13:45 Chloride IV 03/06/21 13:43 125 mls/hr ONCE ONE Administration Miscellaneous Information 1 each 03/06/21 13:45 Medication Intervention 1 Each Each MC 04/05/21 13:44 .RT TO CHECK ON KIKO Intake & Output (Last 24 hours) 03/06/21 03/07/21 03/08/21 03/09/21 11:59 11:59 11:59 11:59 Intake Total 1680 2200 240 Output Total 100 Balance 1680 2100 240 Weight 96.5 kg 96.5 kg 96.5 kg Microbiology Results (Last 24 hours) 03/06/21 08:22 Blood Blood Culture Gram Stain - Pending 03/06/21 08:22 Blood Blood Culture - Preliminary NO GROWTH TO DATE 03/06/21 08:16 Blood Blood Culture Gram Stain - Pending 03/06/21 08:16 Blood Blood Culture - Preliminary NO GROWTH TO DATE Patient Care Notes (Last 24 hours) 03/08/21 10:38 Case Management Note by Ayesha Lopez S/W PATIENT- SHE CONTINUES TO DENY ANY NEW NEEDS REGARDING DC. SHE ALREADY HAS HOME OXYGEN AT 3L/NC AND REPORTS IT IS ALL IN GOOD CONDITION. SHE WAS OFFERED HHC BUT DECLINED AT THIS TIME Initialized on 03/08/21 10:38 - END OF NOTE - Vitals & Intake/Output Vital Signs: Vital Signs Temperature 98.4 F 03/08/21 12:00 Pulse Rate 68 03/08/21 12:00 Respiratory Rate 12 03/08/21 12:00 Blood Pressure 169/79 03/08/21 12:00 O2 Sat by Pulse Oximetry 93 L 03/08/21 15:12 Intake & Output: Intake & Output 03/06/21 03/07/21 03/08/21 03/09/21 11:59 11:59 11:59 11:59 Intake Total 1680 2200 240 Output Total 100 Balance 1680 2100 240 Weight 96.5 kg 96.5 kg 96.5 kg - Lab Result Diagrams: 03/07/21 05:00 03/07/21 05:00 Micro Results-Entire Visit: Microbiology 03/06/21 08:22 Blood Culture - Preliminary Blood NO GROWTH TO DATE 03/06/21 08:16 Blood Culture - Preliminary Blood NO GROWTH TO DATE - Procedures and Test Procedures and Tests throughout Hospitalization: Therapy Orders & Screens 03/06/21 08:26 Respiratory Therapy Assessment DAILY Comment: 03/06/21 12:08 Oxygen Nasal Cannula 4 lpm Comment: Respiratory Therapy Consult ROUTINE Comment: Reason For Exam: 03/06/21 12:41 Respiratory Therapy Assessment DAILY Comment: 03/06/21 14:03 Respiratory MDI BID Comment: Diagnosis: sudden onset of shortness of breath for 1-2 days 03/06/21 15:12 RT Screen per Nursing Assess ONCE Comment: Protocol Order Physician Instructions: Greater than 3 points order RT Admission Screen Reason For Exam: Triggered on Admission Diagnosis: COVID + Diagnosis: COVID + Pneumonia: No Home O2: Yes Asthma: No CHF: No Home CPAP/BIPAP: No Home Nebs/MDI: Yes Total Points: 10 Smoking Cessation Education ONCE Comment: Diagnosis: COVID + Smoking Status: Current every day smoker How long have you smoked: 20 yrs Have you smoked in the past 12 months: Yes Approximately how many cigarettes per day: 1/2 PPD Do you dip or chew tobacco: No Discharge Exam General Appearance: no apparent distress, alert Neurologic Exam: alert, oriented x 3, cooperative, normal mood/affect, nml cerebellar function, sensation nml, No motor deficits Eye Exam: PERRL, EOMI, eyes nml inspection Ears, Nose, Throat Exam: normal ENT inspection, pharynx normal, moist mucous membranes Neck Exam: normal inspection, non-tender, supple, full range of motion Respiratory Exam: crackles/rales, rhonchi, wheezing, No respiratory distress Cardiovascular Exam: regular rate/rhythm, normal heart sounds Gastrointestinal/Abdomen Exam: soft, No tenderness, No mass Pelvic Exam: deferred Rectal Exam: deferred Back Exam: normal inspection, normal range of motion, No CVA tenderness, No vertebral tenderness Extremity Exam: normal inspection, normal range of motion Skin Exam: normal color, warm, dry Final Diagnosis/Problem List - Final Discharge Diagnosis/Problem (1) COPD with exacerbation Current Visit: Yes Status: Acute Code(s): J44.1 - CHRONIC OBSTRUCTIVE P ULMONARY DISEASE W (ACUTE) EXACERBATION (2) COVID-19 virus detected Current Visit: Yes Status: Acute Code(s): U07.1 - COVID-19 (3) COVID-19 vaccine series completed Current Visit: Yes Status: Acute Code(s): Z92.29 - PERSONAL HISTORY OF OTHER DRUG THERAPY - Discharge Discharge Date: 03/08/21 Disposition: Home, Self-Care Condition: Stable Prescriptions: New Amoxicillin/Potassium Clav [Augmentin Xr 1,000-62.5 Tab] 1 tab PO Q12H 5 Days #10 tab Continue Carbamazepine 200 mg [Tegretol 200 MG] 400 mg PO UD Tizanidine HCl 4 mg [Zanaflex 4 MG] 4 mg PO Q6H PRN PRN PRN Reason: Pain Pregabalin [Lyrica] 300 mg PO BID Duloxetine HCl 30 mg [Cymbalta 30 MG Capsule] 60 mg PO BID ARIPiprazole [Aripiprazole] 5 mg PO DAILY Potassium Chloride 10 Meq Tab* [Klor Con 10 MEQ] 10 meq PO BID Trazodone HCl 50 mg [Desyrel 50 mg] 200 mg PO HS Benazepril HCl 40 mg PO DAILY Furosemide 40 mg [Lasix 40 MG] 80 tab PO BID Albuterol Sulfate [Proair Hfa] 2 puffs IH Q6H PRN PRN PRN Reason: Shortness Of Breath Levothyroxine Sodium 150 Mcg [Synthroid 150 Mcg] 150 mcg PO DAILY Carvedilol 12.5 mg [Coreg 12.5 mg] 12.5 mg PO BID Carbamazepine 200 mg [Tegretol 200 MG] 200 mg PO UD ALPRAZolam 0.25 MG [xanAX 0.25 MG] 0.25 mg PO TID Budesonide/Formoterol Fumarate [Budesonide-Formoterol 160-4.5] 2 puff IH BID Instructions: Drugs to Help You Stop Using Tobacco, Coronavirus Disease 2019 (COVID-19) (DC) Additional Instructions: Please quarantine for remaining CDC guidelines of days total since positive test. 03/12/21 is your quarantine date unless you become symptomatic. If you become symptomatic, please call your healthcare provider for further instruction. Follow up with: KADEN SCHAFER NP [Primary Care Provider] - 1 Week Forms: Discharge Instructions
== END 2021-03-08 13:00 | disposition home or self-care (01) ==
LOC: ED 07:47 → MED SURG 12:05
PROVIDERS: ADMIT General Practice; ATTEND Family Medicine
DX: J44.1 Chronic obstructive pulmonary disease with (acute) exacerbation (principal); U07.1 COVID-19; I11.0 Hypertensive heart disease with heart failure; I50.9 Heart failure, unspecified; Z72.0 Tobacco use; Z79.899 Other long term (current) drug therapy; Z92.29 Personal history of other drug therapy; Z20.828 Contact with and (suspected) exposure to other viral communicable diseases
CPT/HCPCS: 0241U; 36415; 71045; 80053; 81001; 83605; 83735; 83880; 84145; 84484; 85025; 85379; 87040; 93005; 93041; 94640; 94762; 96365; 96367; 99285; 93268; J0248; J0456; J0696; J1100; J1650; J2405; A9270-GY; G0378

== ENCOUNTER 2021-06-03 14:24 | Emergency (ER) | payer OTHER ==
--- NOTE | 2021-06-03 14:33 | ERPHSYRPT ---
- History of Present Illness Time Seen by Provider: 06/03/21 14:40 Historian: patient Exam Limitations: no limitations Physician History: Patient is a 60-year-old female presents to our ED via EMS for evaluation of epigastric pain and nausea ongoing for approximately 4 days. In route patient received 100 mg of fentanyl 4 mg of Zofran and 25 of Benadryl. Patient's epig astric pain essentially resolved. Patient currently rates her pain 2-3 out of 10. No trauma. No fever. Patient's last bowel movement was 2 days ago. Patient reports it as normal. Patient advised that she is currently on her home meds. Patient has a history of advanced COPD. Patient requires 24 hours oxygen. She ran out of her oxygen however states that they will be delivering additional oxygen to her home today. No chest pain. No shortness of breath. No diaphoresis. Symptoms are mild to moderate in intensity. No specific worsening improving factors. Patient voices no other complaints or concerns at this time. Timing/Duration: day(s) (4 days) Activities at Onset: none Quality: aching Abdominal Pain Onset Location: epigastric Pain Radiation: no radiation Severity of Pain-Max: moderate Severity of Pain-Current: mild Modifying Factors: Improves With: nothing Associated Symptoms: nausea, No chest pain, No diaphoresis, No diarrhea, No fever/chills, No loss of appetite, No rash, No shortness of breath, No vomiting Previous symptoms: no prior history Allergies/Adverse Reactions: No Known Drug Allergies Allergy (Verified 06/03/21 14:39) Home Medications: ARIPiprazole [Aripiprazole] 5 mg PO DAILY 01/11/20 [History] Carbamazepine 200 mg [Tegretol 200 MG] 400 mg PO UD 01/11/20 [History] Duloxetine HCl 30 mg [Cymbalta 30 MG Capsule] 60 mg PO BID 01/11/20 [ History] Pregabalin [Lyrica] 300 mg PO BID 01/11/20 [History] Tizanidine HCl 4 mg [Zanaflex 4 MG] 4 mg PO Q6H PRN PRN 01/11/20 [History] Albuterol Sulfate [Proair Hfa] 2 puffs IH Q6H PRN PRN 06/30/20 [History] Benazepril HCl 40 mg PO DAILY 06/30/20 [History] Furosemide 40 mg [Lasix 40 MG] 80 tab PO BID 06/30/20 [History] Levothyroxine Sodium 150 Mcg [Synthroid 150 Mcg] 150 mcg PO DAILY 06/30/20 [History] Potassium Chloride 10 Meq Tab* [Klor Con 10 MEQ] 10 meq PO BID 06/30/20 [H istory] Trazodone HCl 50 mg [Desyrel 50 mg] 200 mg PO HS 06/30/20 [History] ALPRAZolam 0.25 MG [xanAX 0.25 MG] 0.25 mg PO TID 03/06/21 [History] Budesonide/Formoterol Fumarate [Budesonide-Formoterol 160-4.5] 2 puff IH BID 03/06/21 [History] Carbamazepine 200 mg [Tegretol 200 MG] 200 mg PO UD 03/06/21 [History] Carvedilol 12.5 mg [Coreg 12.5 mg] 12.5 mg PO BID 03/06/21 [History] Hx Tetanus, Diphtheria Vaccination/Date Given: No Hx Influenza Vaccination/Date Given: No Hx Pneumococcal Vaccination/Date Given: No Travel Risk - Vaccine Status Have you recieved a Covid-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: Yes [employer]: [employer] - Vaccination Dates Date of 2cond Vaccination (if applicable): 06/2020 Comment: and booster - Review of Systems Constitutional: No Symptoms, No Fever, No Chills Eyes: No Symptoms Ears, Nose, & Throat: No Symptoms Respiratory: No Symptoms, No Cough, No Dyspnea Cardiac: No Symptoms, No Chest Pain, No Edema, No Syncope Abdominal/Gastrointestinal: No Symptoms, No Abdominal Pain, No Nausea, No Vomiting, No Diarrhea Genitourinary Symptoms: No Symptoms, No Dysuria Musculoskeletal: No Symptoms, No Back Pain, No Neck Pain Skin: No Symptoms, No Rash Neurological: No Symptoms, No Dizziness, No Focal Weakness, No Sensory Changes Psychological: No Symptoms Endocrine: No Symptoms Hematologic/Lymphatic: No Symptoms Immunological/Allergic: No Symptoms All Other Systems: Reviewed and Negative - Past Medical History Pertinent Past Medical History: Yes Neurological History: Peripheral Neuropathy ENT History: No Pertinent History Cardiac History: Congestive Heart Failure, Hypertension Respiratory History: Bronchitis, CHF, COPD, Pneumonia Endocrine Medical History: No Pertinent History Musculoskeletal History: No Pertinent History GI Medical History: No Pertinent History History: No Pertinent History Psycho-Social History: No Pertinent History Female Reproductive Disorders: No Pertinent History Other Medical History: pt unable to participate in admission documentation due to severe confusion, history taken off meds list - Past Surgical History Past Surgical History: Yes Neuro Surgical History: No Pertinent History Cardiac: No Pertinent History Respiratory: No Pertinent History Gastrointestinal: Appendectomy Genitourinary: No Pertinent History Musculoskeletal: No Pertinent History Female Surgical History: No Pertinent History Other Surgical History: elbow surgery. skin cancer removed - Social History Smoking Status: Current every day smoker How long have you smoked: 20 yrs Exposure to second hand smoke: No Drug Use: none Patient Lives Alone: Yes - Nursing Vital Signs Nursing Vital Signs: Initial Vital Signs Temperature 97.9 F 06/03/21 14:32 Pulse Rate 72 06/03/21 14:32 Respiratory Rate 18 06/03/21 14:32 Blood Pressure 203/110 06/03/21 14:32 O2 Sat by Pulse Oximetry 97 06/03/21 14:32 Pain Scale Pain Intensity 97 - Physical Exam General Appearance: no apparent distress, alert Eye Exam: PERRL/EOMI, eyes nml inspection Ears, Nose, Throat Exam: normal ENT inspection, pharynx normal, moist mucous membranes Neck Exam: normal inspection, non-tender, supple, full range of motion Respiratory Exam: normal breath sounds, lungs clear, No respiratory distress Cardiovascular Exam: regular rate/rhythm, normal heart sounds Gastrointestinal/Abdomen Exam: soft, No tenderness, No mass Back Exam: normal inspection, normal range of motion, No CVA tenderness, No vertebral tenderness Extremity Exam: normal inspection, normal range of motion, pelvis stable Neurologic Exam: alert, oriented x 3, cooperative, normal mood/affect, nml cerebellar function, sensation nml, No motor deficits Skin Exam: normal color, warm, dry SpO2 Interpretation: normal SpO2: 97 O2 Delivery: Room Air - Course Nursing assessment & vital signs reviewed: Yes EKG Interpreted by Me: RATE (71), Sinus Rhythm, NORMAL AXIS, NORMAL INTERVALS - CT Exams Abdomen/Pelvis CT Interpretation: Tele-radiologist Report (5 mm lung nodule, gallstones, diverticulosis, left renal cyst, L4 spondylolisthesis) Ordered Tests: Active Orders 24 hr Category Date Time Status IV Insertion STAT Care 06/03/21 14:31 Active ABDOMEN AND PELVIS W CONTRAST [CT] Stat Exams 06/03/21 14:32 Completed CBC W DIFF Stat Lab 06/03/21 14:45 Completed CMP Stat Lab 06/03/21 14:45 Completed CULTURE,URINE Stat Lab 06/03/21 18:00 Received LIPASE Stat Lab 06/03/21 14:45 Completed TROPONIN Q3H Lab 06/03/21 14:45 Completed TROPONIN Q3H Lab 06/03/21 17:50 Completed TROPONIN Q3H Lab 06/03/21 20:45 Ordered TROPONIN Q3H Lab 06/03/21 23:45 Ordered TROPONIN Q3H Lab 06/04/21 02:45 Ordered Medication Summary Generic Name Dose Route Start Last Admin Trade Name Freq PRN Reason Stop Dose Admin Sodium Chloride 1,000 mls @ 100 mls/hr 06/03/21 14:45 06/03/21 14:53 Sodium Chloride 0.9% 1000 Ml IV 07/03/21 14:44 100 mls/hr .Q10H KIKO Administration Discontinued Medications Generic Name Dose Route Start Last Admin Trade Name Freq PRN Reason Stop Dose Admin Al Hydrox/Mg Hydrox/Simethicone Confirm 06/03/21 18:22 Mag Hydrox/Al Hydrox/Simeth 30 Ml Udcup Administered 06/03/21 18:23 Dose 30 ml .ROUTE .STK-MED ONE Alprazolam Confirm 06/03/21 19:22 Alprazolam 0.25 Mg Tablet Administered 06/03/21 19:23 Dose 0.25 mg .ROUTE .STK-MED ONE Alprazolam 0.25 mg 06/03/21 19:37 06/03/21 19:39 Alprazolam 0.25 Mg Tablet PO 06/03/21 19:38 0.25 mg STAT ONE Administration Aripiprazole Confirm 06/03/21 19:25 Aripiprazole 10 Mg Tablet Administered 06/03/21 19:26 Dose 10 mg .ROUTE .STK-MED ONE Aripiprazole 5 mg 06/03/21 19:37 06/03/21 19:39 Aripiprazole 10 Mg Tablet PO 06/03/21 19:38 5 mg DAILY STA Administration Carvedilol Confirm 06/03/21 19:25 Carvedilol 12.5 Mg Tablet Administered 06/03/21 19:26 Dose 25 mg .ROUTE .STK-MED ONE Carvedilol 25 mg 06/03/21 19:37 06/03/21 19:39 Carvedilol 12.5 Mg Tablet PO 06/03/21 19:38 25 mg ONCE STA Administration Lidocaine HCl Confirm 06/03/21 18:22 Lidocaine Hcl 20 Ml Cup Administered 06/03/21 18:23 Dose 20 ml .ROUTE .STK-MED ONE Magnesium Hydroxide 45 ml 06/03/21 18:19 06/03/21 18:23 Mag Hydrx/Alum Hyd/Simeth/Lido 45 Ml Bottle PO 06/03/21 18:20 45 ml STAT ONE Administration Pantoprazole Sodium 40 mg 06/03/21 18:20 06/03/21 18:36 Pantoprazole 40 Mg Vial IV 06/03/21 18:21 40 mg STAT ONE Administration Pantoprazole Sodium Confirm 06/03/21 18:35 Pantoprazole 40 Mg Vial Administered 06/03/21 18:36 Dose 40 mg IV .STK-MED ONE Pregabalin Confirm 06/03/21 19:26 Pregabalin 150 Mg Capsule Administered 06/03/21 19:27 Dose 300 mg .ROUTE .STK-MED ONE Pregabalin 300 mg 06/03/21 19:36 06/03/21 19:39 Pregabalin 150 Mg Capsule PO 06/03/21 19:37 300 mg ONCE STA Administration Lab/Rad Data: Laboratory Result Diagrams 06/03/21 14:45 06/03/21 14:45 Laboratory Results 06/03/21 06/03/21 06/03/21 Range/Units 18:00 17:50 14:45 WBC (4.0-10.5) K/mm3 RBC (4.1-5.4) M/mm3 Hgb (12.0-16.0) gm/dl Hct (35-47) % MCV (78-100) fl MCH (26-32) pg MCHC (32-36) g/dl RDW (11.5-14.0) % Plt Count (150-450) K/mm3 MPV (7.5-11.0) fl Gran % (36.0-66.0) % Eos # (Auto) (0-0.5) Absolute Lymphs (auto) (1.0-4.6) Absolute Monos (auto) (0.0-1.3) Lymphocytes % (24.0-44.0) % Monocytes % (0.0-12.0) % Eosinophils % (0.00-5.0) % Basophils % (0.0-0.4) % Absolute Granulocytes (1.4-6.9) Basophils # (0-0.4) Sodium (137-145) mmol/L Potassium (3.5-5.1) mmol/L Chloride (98-107) mmol/L Carbon Dioxide (22-30) mmol/L Anion Gap (5-15) MEQ/L BUN (7-17) mg/dL Creatinine (0.52-1.04) mg/dL Estimated GFR ML/MIN Glucose (74-106) mg/dL Calcium (8.4-10.2) mg/dL Total Bilirubin (0.2-1.3) mg/dL AST (14-36) U/L ALT (0-35) U/L Alkaline Phosphatase (38-126) U/L Troponin I < 0.012 < 0.012 (0.000-0.034) ng/mL Serum Total Protein (6.3-8.2) g/dL Albumin (3.5-5.0) g/dL Lipase (23-300) U/L Urinalys Dipstick Clnc MAIN LAB Urine Color YELLOW (YELLOW) Urine Appearance CLEAR (CLEAR) Urine pH 7.0 (5-6) Ur Specific [place] 1.010 (1.005-1.025) POC Urine Protein Conf TRACE (Negative) Urine Ketones NEGATIVE (NEGATIVE) Urine Nitrite NEGATIVE (NEGATIVE) Urine Bilirubin NEGATIVE (NEGATIVE) Urine Urobilinogen 1 (0-1) mg/dL Urine Leukocytes NEGATIVE (NEGATIVE) Urine WBC (Auto) 3-5 (0-5) /HPF Urine RBC (Auto) 3-5 (0-2) /HPF U Epithel Cells (Auto) RARE (FEW) /HPF Urine Bacteria (Auto) RARE (NEGATIVE) /HPF Urine RBC TRACE-INTACT (0-5) Baldom[place]/ul Ur Culture Indicated? YES Urine Glucose NEGATIVE (NEGATIVE) mg/dL 06/03/21 06/03/21 Range/Units 14:45 14:45 WBC 9.7 (4.0-10.5) K/mm3 RBC 5.03 (4.1-5.4) M/mm3 Hgb 14.8 (12.0-16.0) gm/dl Hct 44.3 (35-47) % MCV 88.1 (78-100) fl MCH 29.4 (26-32) pg MCHC 33.4 (32-36) g/dl RDW 13.7 (11.5-14.0) % Plt Count 248 (150-450) K/mm3 MPV 8.9 (7.5-11.0) fl Gran % 69.0 H (36.0-66.0) % Eos # (Auto) 0.14 (0-0.5) Absolute Lymphs (auto) 2.13 (1.0-4.6) Absolute Monos (auto) 0.69 (0.0-1.3) Lymphocytes % 22.0 L (24.0-44.0) % Monocytes % 7.1 (0.0-12.0) % Eosinophils % 1.4 (0.00-5.0) % Basophils % 0.5 (0.0-0.4) % Absolute Granulocytes 6.65 (1.4-6.9) Basophils # 0.05 (0-0.4) Sodium 131 L (137-145) mmol/L Potassium 3.6 (3.5-5.1) mmol/L Chloride 90 L (98-107) mmol/L Carbon Dioxide 34 H (22-30) mmol/L Anion Gap 11.3 (5-15) MEQ/L BUN 8 (7-17) mg/dL Creatinine 0.51 L (0.52-1.04) mg/dL Estimated GFR > 60.0 ML/MIN Glucose 97 (74-106) mg/dL Calcium 9.2 (8.4-10.2) mg/dL Total Bilirubin 0.80 (0.2-1.3) mg/dL AST 28 (14-36) U/L ALT 20 (0-35) U/L Alkaline Phosphatase 126 (38-126) U/L Troponin I (0.000-0.034) ng/mL Serum Total Protein 7.5 (6.3-8.2) g/dL Albumin 4.1 (3.5-5.0) g/dL Lipase 104 (23-300) U/L Urinalys Dipstick Clnc Urine Color (YELLOW) Urine Appearance (CLEAR) Urine pH (5-6) Ur Specific [place] (1.005-1.025) POC Urine Protein Conf (Negative) Urine Ketones (NEGATIVE) Urine Nitrite (NEGATIVE) Urine Bilirubin (NEGATIVE) Urine Urobilinogen (0-1) mg/dL Urine Leukocytes (NEGATIVE) Urine WBC (Auto) (0-5) /HPF Urine RBC (Auto) (0-2) /HPF U Epithel Cells (Auto) (FEW) /HPF Urine Bacteria (Auto) (NEGATIVE) /HPF Urine RBC (0-5) Baldomero/ul Ur Culture Indicated? Urine Glucose (NEGATIVE) mg/dL - Progress Progress: improved Progress Note: Patient reassessed. Pain significantly improved after administration of GI cocktail. CT scan essentially unremarkable for acute pathology. We provided patient with her p.m. meds for tonight. We also provided her with her a.m. medication for tonight. bookkeepers supervisor Mary will call patient's primary care doctor to arrange a follow-up appointment for tomorrow morning. Clinic canceled on patient today therefore patient was unable to obtain her home medications. We have made arrangements with [facility] to provide patient with her oxygen this evening. Patient states she is ready for discharge. No indication for further work-up at this time. Brother at bedside. They voiced no other complaints or concerns at this time. Portions of this note were created with voice recognition technology. There may be grammatical, spelling, punctuation or sound alike errors 06/03/21 19:42 Counseled pt/family regarding: lab results, diagnosis, need for follow-up, rad results - Departure Departure Disposition: Home Clinical Impression: Left lower lobe 5 mm lung nodule, 8 mm gallstone, Renal cyst, Arthritis of spine, Spondylolysis, Spondylolisthesis at L4-L5 level, Hip arthritis, Diverticulosis Condition: Stable Critical Care Time: No Referrals: KADEN SCHAFER NP [Primary Care Provider] - Follow up/PCP as directed Additional Instructions: You have a lung nodule that will require follow-up. Please see your primary care physician for follow-up CAT scan. Discharge/Care Plan SARATUCKER Rosa was seen on 06/03/21 in the Emergency Room. The patient was counseled regarding Diagnosis,Lab results, Imaging studies, need for follow up and when to return to the Emergency Room. Prescriptions given: Discharge Note I have spoken with the patient and/or caregivers. I have explained the patient's condition, diagnosis and treatment plan based on the information available to me at this time. I have answered the patient's and/or caregiver's questions and addressed any concerns. The patient and/or caregivers have as good understanding of the patient's diagnosis, condition and treatment plan as can be expected at this point. The vital signs have been stable. The patient's condition is stable and appropriate for discharge from the emergency department. The patient will pursue further outpatient evaluation with the primary care physician or other designated or consulting physician as outlined in the discharge instructions. The patient and/or caregivers are agreeable to this plan of care and follow-up instructions have been explained in detail. The patient and/or caregivers have received these instruction. The patient/and or caregivers are aware that any significant change in condition or worsening of symptoms should prompt an immediate return to this or the closest emergency department or call 911.
[2021-06-03 14:40] VITALS: O2SAT 97
[2021-06-03] MEDS ORDERED: Sodium Chloride 0.9% 1000 ML 1,000 ML IV SCH (14:45)
[2021-06-03] MEDS ORDERED: Sodium Chloride 0.9% 1000 ML 1,000 ML ONE (14:53)
[2021-06-03 14:55] LABS: Absolute Neutrophil Ct (ANC) 6.65 (1.4-6.9); Basophil (Absolute #) 0.05 (0-0.4); Eosinophil % 1.4 % (0.00-5.0); Eosinophil (Absolute #) 0.14 (0-0.5); Hematocrit 44.3 % (35-47); Hemoglobin 14.8 gm/dl (12.0-16.0); Lymphocyte (Absolute #) 2.13 (1.0-4.6); Mean Cell Volume 88.1 fl (78-100); Mean Corpuscular Hemoglobin 29.4 pg (26-32); Mean Corpuscular Hgb Concent. 33.4 g/dl (32-36); Mean Platelet Volume 8.9 fl (7.5-11.0); Monocyte (Absolute #) 0.69 (0.0-1.3); Monocytes % 7.1 % (0.0-12.0); Platelet Count 248 K/mm3 (150-450); Red Blood Count 5.03 M/mm3 (4.1-5.4); Red Cell Distribution Width 13.7 % (11.5-14.0); White Blood Count 9.7 K/mm3 (4.0-10.5)
[2021-06-03 15:12] LABS: ALBUMIN 4.1 g/dL (3.5-5.0); ALKALINE PHOSPHATASE 126 U/L (38-126); ANION GAP 11.3 MEQ/L (5-15); BLOOD UREA NITROGEN 8 mg/dL (7-17); CHLORIDE 90 mmol/L (98-107); Calcium 9.2 mg/dL (8.4-10.2); Carbon Dioxide 34 mmol/L (22-30); Creatinine 1 0.51 mg/dL (0.52-1.04); EST GLOMERULAR FILTRATION RATE > 60.0 ML/MIN; Glucose 97 mg/dL (74-106); LIPASE 104 U/L (23-300); Potassium 3.6 mmol/L (3.5-5.1); SGOT/AST 28 U/L (14-36); SGPT/ALT 20 U/L (0-35); SODIUM 131 mmol/L (137-145); Total Protein 7.5 g/dL (6.3-8.2)
--- NOTE | 2021-06-03 17:00 | XRAY ---
Indication: Abdomen pain and nausea. Multiple contiguous axial images obtained through the abdomen and pelvis using 80 cc Isovue 370 contrast. Comparison: None Lung bases demonstrates moderate bibasilar dependent atelectasis. Left lower lobe demonstrates 5 mm posterior medial indeterminant subpleural noncalcified nodule. Heart not enlarged. Noncontrasted stomach and bowel loops appear nonobstructed. Previous appendectomy. Minimal descending/sigmoid diverticulosis. No free fluid/air. Incidental 8 mm gallstone. Both kidneys enhance and excrete with a few left renal cysts, largest 1 cm midpole. Remaining liver, gallbladder, pancreas, spleen, adrenal glands, kidneys, ureters, bladder, and uterus are unremarkable. Mild aortoiliac calcifications. No AAA or pathological retroperitoneal lymphadenopathy. Osseous structures intact with mild multilevel thoracolumbar degenerative spondylosis and 4-5 mm L4 spondylolisthesis. Also mild degenerative changes both hips. Impression: 1. Indeterminant 5 mm left lower lobe noncalcified nodule. Nodule obscured on CT chest July 05, 2020. Recommend follow-up per Fleischner guidelines. 2. Incidental tiny gallstone, colonic diverticulosis, left renal cysts, multilevel degenerative spondylosis, minimal grade 1 L4 spondylolisthesis, and mild bilateral hip degenerative arthropathy. 3. Remaining CT abdomen/pelvis with contrast exam is negative.
[2021-06-03] MEDS ORDERED: GI COCKTAIL 45 ML (Maalox/Lidocaine) PO ONE (18:19)
[2021-06-03] MEDS ORDERED: PROTONIX 40 MG IV IV ONE ×2 (18:20→18:35)
[2021-06-03] MEDS ORDERED: XYLOCAINE VISCOUS 2% 20 ML CUP ONE (18:22)
[2021-06-03] MEDS ORDERED: MAALOX ES 30 ML UNIT DOSE ONE (18:22)
[2021-06-03 18:33] LABS: Bacteria RARE /HPF (NEGATIVE); Epithelial Cells RARE /HPF (FEW)
[2021-06-03 18:35] LABS: Appearance CLEAR (CLEAR); Bilirubin NEGATIVE (NEGATIVE); Glucose NEGATIVE (NEGATIVE); Ketones NEGATIVE (NEGATIVE); Nitrite NEGATIVE (NEGATIVE); Protein,Urine Dip TRACE (Negative); RBC TRACE-INTACT Ery/ul (0-5); Urine Cultured Indicated? YES; Urobilinogen 1 mg/dL (0-1)
[2021-06-03 18:36] LABS: Dipstick done @ ? MAIN LAB
[2021-06-03] MEDS ORDERED: xanAX 0.25 MG ONE (19:22)
[2021-06-03] MEDS ORDERED: Abilify 10 MG ONE (19:25)
[2021-06-03] MEDS ORDERED: COREG 12.5 MG ONE (19:25)
[2021-06-03] MEDS ORDERED: LYRICA 150MG ONE (19:26)
[2021-06-03] MEDS ORDERED: LYRICA 150MG PO STA (19:36)
[2021-06-03] MEDS ORDERED: COREG 12.5 MG PO STA (19:37)
[2021-06-03] MEDS ORDERED: xanAX 0.25 MG PO ONE (19:37)
[2021-06-03] MEDS ORDERED: Abilify 10 MG PO STA (19:37)
[2021-06-03 20:43] VITALS: BP 167/96; PULSE 71
== END 2021-06-03 20:43 | disposition home or self-care (01) ==
LOC: ED 14:24
DX: K57.90 Diverticulosis of intestine, part unspecified, without perforation or abscess without bleeding (principal); R91.1 Solitary pulmonary nodule; K80.80 Other cholelithiasis without obstruction; Q61.01 Congenital single renal cyst; M47.9 Spondylosis, unspecified; M43.16 Spondylolisthesis, lumbar region; M16.10 Unilateral primary osteoarthritis, unspecified hip; R10.13 Epigastric pain; J44.9 Chronic obstructive pulmonary disease, unspecified; Z99.81 Dependence on supplemental oxygen; R11.0 Nausea; I11.0 Hypertensive heart disease with heart failure; I50.9 Heart failure, unspecified; Z72.0 Tobacco use; Z79.899 Other long term (current) drug therapy
CPT/HCPCS: 36000; 36415; 74177; 80053; 81015; 83690; 84484; 85025; 87077; 87086; 87186; 96374; 96375; 99284; A9270-GY

== ENCOUNTER 2021-07-03 20:44 | Observation (INO) | payer OTHER ==
[2021-07-03] MEDS ORDERED: PROVENTIL 2.5 MG/3 ML NEB IH ONE ×2 (20:49→21:04)
[2021-07-03] MEDS ORDERED: solu-MEDROL 125 MG, Sterile H2O 10 ml 2 ML IV ONE ×2 (20:49)
[2021-07-03] MEDS ORDERED: DUONEB 0.5-3 MG/3 ml Neb IH ONE ×2 (20:49→21:04)
[2021-07-03] MEDS ORDERED: TRANDATE 20 MG/4 ML SYRINGE IV ONE ×6 (20:51→22:56)
--- NOTE | 2021-07-03 20:58 | ERPHSYRPT ---
- History of Present Illness Time Seen by Provider: 07/03/21 20:45 Source: patient Exam Limitations: no limitations Timing/Duration: today Activities at Onset: rest Severity of Dyspnea-Max: moderate Severity of Dyspnea-Current: moderate Possible Cause: occasional episodes Modifying Factors: Improves With: nothing (No relief earlier with her albuterol nebulizer or home oxygen) Associated Symptoms: cough, wheezing, No chest pain/discomfort, No edema, No fever, No lightheadedness, No weakness, No ankle swelling, No chills, No hemoptysis, No calf pain, No dizziness, No heaviness, No heart racing, No lightheadedness, No leg swelling, No painful breathing Allergies/Adverse Reactions: No Known Drug Allergies Allergy (Verified 07/03/21 21:00) Home Medications: ARIPiprazole [Aripiprazole] 5 mg PO DAILY 01/11/20 [History] Carbamazepine 200 mg [Tegretol 200 MG] 400 mg PO UD 01/11/20 [History] Duloxetine HCl 30 mg [Cymbalta 30 MG Capsule] 60 mg PO BID 01/11/20 [History] Pregabalin [Lyrica] 300 mg PO BID 01/11/20 [History] Tizanidine HCl 4 mg [Zanaflex 4 MG] 4 mg PO Q6H PRN PRN 01/11/20 [History] Albuterol Sulfate [Proair Hfa] 2 puffs IH Q6H PRN PRN 06/30/20 [History] Benazepril HCl 40 mg PO DAILY 06/30/20 [History] Furosemide 40 mg [Lasix 40 MG] 80 tab PO BID 06/30/20 [History] Levothyroxine Sodium 150 Mcg [Synthroid 150 Mcg] 150 mcg PO DAILY 06/30/20 [History] Potassium Chloride Tab* [Klor Con] 10 meq PO BID 06/30/20 [History] Trazodone HCl 50 mg [Desyrel 50 mg] 200 mg PO HS 06/30/20 [History] ALPRAZolam 0.25 MG [xanAX 0.25 MG] 0.25 mg PO TID 03/06/21 [History] Budesonide/Formoterol Fumarate [Budesonide-Formoterol 160-4.5] 2 puff IH BID 03/06/21 [History] Carbamazepine 200 mg [Tegretol 200 MG] 200 mg PO UD 03/06/21 [History] Carvedilol 12.5 mg [Coreg 12.5 mg] 12.5 mg PO BID 03/06/21 [History] Hx Tetanus, Diphtheria Vaccination/Date Given: No Hx Influenza Vaccination/Date Given: No Hx Pneumococcal Vaccination/Date Given: No Travel Risk - Vaccine Status Have you recieved a Covid-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: Yes 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 - Vaccination Dates Date of 2cond Vaccination (if applicable): 06/2020 Comment: and booster - Review of Systems Constitutional: No Fever, No Chills, No Fatigue, No Malaise Eyes: No Symptoms, No Eye Pain, No Eye Redness Ears, Nose, & Throat: No Symptoms, No Ear Pain, No Ear Discharge, No Nose Congestion, No Sinus Drainage, No Mouth Swelling Respiratory: Cough, Dyspnea, Wheezing Cardiac: No Chest Pain, No Edema, No Syncope Abdominal/Gastrointestinal: No Abdominal Pain, No Nausea, No Vomiting, No Diarrhea, No Hematemesis, No Hematochezia, No Melena Genitourinary Symptoms: Frequency, No Dysuria, No Hematuria, No Hesitancy, No Flank Pain Musculoskeletal: No Back Pain, No Neck Pain Skin: No Rash Neurological: No Dizziness, No Focal Weakness, No Headache, No Sensory Changes Psychological: No Symptoms, No Anxiety Endocrine: No Symptoms, No Polydipsia Hematologic/Lymphatic: No Easy Bleeding, No Easy Bruising All Other Systems: Reviewed and Negative - Past Medical History Pertinent Past Medical History: Yes Neurological History: Peripheral Neuropathy ENT History: No Pertinent History Cardiac History: Congestive Heart Failure, Hypertension Respiratory History: Bronchitis, CHF, COPD, Pneumonia Endocrine Medical History: No Pertinent History Musculoskeletal History: No Pertinent History GI Medical History: No Pertinent History History: No Pertinent History Psycho-Social History: No Pertinent History Female Reproductive Disorders: No Pertinent History Other Medical History: pt unable to participate in admission documentation due to severe confusion, history taken off meds list - Past Surgical History Past Surgical History: Yes Neuro Surgical History: No Pertinent History Cardiac: No Pertinent History Respiratory: No Pertinent History Gastrointestinal: Appendectomy Genitourinary: No Pertinent History Musculoskeletal: No Pertinent History Female Surgical History: No Pertinent History Other Surgical History: elbow surgery. skin cancer removed - Social History Smoking Status: Current every day smoker How long have you smoked: 20 yrs Exposure to second hand smoke: No Drug Use: none Patient Lives Alone: Yes - Nursing Vital Signs Nursing Vital Signs: Initial Vital Signs Pulse Rate 71 07/03/21 20:46 Respiratory Rate 18 07/03/21 20:46 Blood Pressure 225/109 07/03/21 20:46 O2 Sat by Pulse Oximetry 94 L 07/03/21 20:46 Pain Scale Pain Intensity 0 - Physical Exam General Appearance: no apparent distress, alert Eye Exam: PERRL/EOMI, eyes nml inspection, No scleral icterus, No pale conjunctivae Ears, Nose, Throat Exam: hearing grossly normal, normal ENT inspection, normal pharynx, No sinus pain/drainage, No nasal congestion, No pharyngeal erythema, No tonsillar swelling Neck Exam: normal inspection, supple, full range of motion, No JVD, No lymphadenopathy (R), No lymphadenopathy (L) Respiratory Exam: airway intact, wheezing, No respiratory distress, No accessory muscle use, No crackles/rales, No rhonchi, No stridor Cardiovascular/Chest Exam: normal heart sounds, regular rate/rhythm Abdominal/Gastrointestinal Exam: soft, No tenderness, No distention, No mass Extremity Exam: non-tender, normal range of motion, normal inspection, no calf tenderness, no pedal edema, No calf tenderness Neurologic Exam: alert, oriented x 3, cooperative, 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, sensation nml, No motor deficits Skin Exam: normal color, warm, No dry, No petechiae, No jaundice, No cyanosis SpO2 Interpretation: normal O2 Delivery: Nasal Cannula - Course Nursing assessment & vital signs reviewed: Yes EKG Interpreted by Me: RATE, Sinus Rhythm (67), NORMAL AXIS, NORMAL INTERVALS, NORMAL QRS, NORMAL ST-T - Radiology Exams Chest X-ray Interpretation: Interpreted by me, Reviewed by me, Negative, No Fracture, No Pneumonia, No Pneumothorax, Nml Alignment, Nml Heart Size, No Infiltrates Ordered Tests: Active Orders 24 hr Category Date Time Status Chief Deputy Sheriff STAT Care 07/03/21 20:50 Active EKG-ER Only STAT Care 07/03/21 20:49 Active IV Insertion STAT Care 07/03/21 20:49 Active Oxygen-ED Only Nasal Cannula 3 lpm Care 07/03/21 20:49 Active CHEST 2 VIEWS (PA AND LAT) Stat Exams 07/03/21 20:50 Taken CBC W DIFF Stat Lab 07/03/21 21:00 Completed CMP Stat Lab 07/03/21 21:00 Completed MAGNESIUM Stat Lab 07/03/21 21:00 Completed NT PRO BNP Stat Lab 07/03/21 21:00 Completed PROTIME WITH INR Stat Lab 07/03/21 21:00 Completed TROPONIN Q3H Lab 07/03/21 21:00 Completed TROPONIN Q3H Lab 07/04/21 00:00 Ordered TROPONIN Q3H Lab 07/04/21 03:00 Ordered TROPONIN Q3H Lab 07/04/21 06:00 Ordered TROPONIN Q3H Lab 07/04/21 09:00 Ordered UA W/RFX CULTURE Stat Lab 07/03/21 22:30 Completed VENOUS BLOOD GAS Stat Lab 07/03/21 21:45 Completed Respiratory Therapy Assessment DAILY RT 07/03/21 21:08 Active Medication Summary Discontinued Medications Generic Name Dose Route Start Last Admin Trade Name Freq PRN Reason Stop Dose Admin Albuterol Sulfate 2.5 mg 07/03/21 20:49 07/03/21 21:16 Albuterol Sulfate 2.5 Mg/3 Ml Neb IH 07/03/21 20:50 2.5 mg STAT ONE Administration Albuterol Sulfate Confirm 07/03/21 21:04 Albuterol Sulfate 2.5 Mg/3 Ml Neb Administered 07/03/21 21:05 Dose 2.5 mg IH .STK-MED ONE Albuterol/Ipratropium 3 ml 07/03/21 20:49 07/03/21 21:08 Ipratropium/Albuterol Sulfate 3 Ml Ampul.Neb IH 07/03/21 20:50 3 ml STAT ONE Administration Albuterol/Ipratropium Confirm 07/03/21 21:04 Ipratropium/Albuterol Sulfate 3 Ml Ampul.Neb Administered 07/03/21 21:05 Dose 3 ml IH .STK-MED ONE Azithromycin 500 mg 07/03/21 22:34 07/03/21 23:00 Azithromycin 250 Mg Tablet PO 07/03/21 22:35 500 mg STAT ONE Administration Azithromycin Confirm 07/03/21 22:56 Azithromycin 250 Mg Tablet Administered 07/03/21 22:57 Dose 500 mg .ROUTE .STK-MED ONE Methylprednisolone Sodium 0 mg 07/03/21 20:49 07/03/21 21:31 Succinate 125 mg/ Sterile IV 07/03/21 20:50 125 mg Water 2 ml STAT ONE Administration Labetalol HCl 20 mg 07/03/21 20:51 07/03/21 21:30 Labetalol Hcl 20 Mg/4 Ml Disp.Syringe IV 07/03/21 20:52 20 mg STAT ONE Administration Labetalol HCl Confirm 07/03/21 21:29 Labetalol Hcl 20 Mg/4 Ml Disp.Syringe Administered 07/03/21 21:30 Dose 20 mg IV .STK-MED ONE Labetalol HCl 20 mg 07/03/21 22:05 07/03/21 22:09 Labetalol Hcl 20 Mg/4 Ml Disp.Syringe IV 07/03/21 22:06 20 mg STAT ONE Administration Labetalol HCl Confirm 07/03/21 22:08 Labetalol Hcl 20 Mg/4 Ml Disp.Syringe Administered 07/03/21 22:09 Dose 20 mg IV .STK-MED ONE Labetalol HCl 20 mg 07/03/21 22:33 07/03/21 23:00 Labetalol Hcl 20 Mg/4 Ml Disp.Syringe IV 07/03/21 22:34 20 mg STAT ONE Administration Labetalol HCl Confirm 07/03/21 22:56 Labetalol Hcl 20 Mg/4 Ml Disp.Syringe Administered 07/03/21 22:57 Dose 20 mg IV .STK-MED ONE Methylprednisolone Sodium Succinate Confirm 07/03/21 21:29 Methylprednis Sod Succ 125 Mg/2 Ml Vial Administered 07/03/21 21:30 Dose 125 mg .ROUTE .STK-MED ONE Sterile Water Confirm 07/03/21 21:29 Water For Injection,Sterile 10 Ml Vial Administered 07/03/21 21:30 Dose 10 ml IJ .STK-MED ONE Lab/Rad Data: Laboratory Result Diagrams 07/03/21 21:00 07/03/21 21:00 Laboratory Results 07/03/21 07/03/21 07/03/21 Range/Units 22:30 21:45 21:00 WBC (4.0-10.5) x10^3/uL RBC (4.1-5.4) x10^6/uL Hgb (12.0-16.0) g/dL Hct (35-47) % MCV (78-100) fL MCH (26-32) pg MCHC (32-36) g/dL RDW (11.5-14.0) % Plt Count (150-450) x10^3/uL MPV (7.5-11.0) fL Gran % (36.0-66.0) % Immature Gran % (Auto) (0.00-0.4) % Nucleat RBC Rel Count (0.00-0.1) % Eos # (Auto) (0-0.5) x10^3/uL Immature Gran # (Auto) (0.00-0.03) x10^3u/L Absolute Lymphs (auto) (1.0-4.6) x10^3/uL Absolute Monos (auto) (0.0-1.3) x10^3/uL Absolute Nucleated RBC (0.00-0.01) x10^3u/L Lymphocytes % (24.0-44.0) % Monocytes % (0.0-12.0) % Eosinophils % (0.00-5.0) % Basophils % (0.0-0.4) % Absolute Granulocytes (1.4-6.9) x10^3/uL Basophils # (0-0.4) x10^3/uL PT (9.4-12.5) SECONDS INR (0.8-3.0) pO2/FiO2 Ratio 21.0 % VBG pH 7.44 H (7.32-7.42) VBG pCO2 at Pat Temp 51 (42-55) mm/Hg VBG pO2 at Pat Temp 45 H (25-40) mm/Hg VBG HCO3 34.6 H* (22-28) meq/L VBG O2 Sat (Radha) 82.9 L (95-100) VBG Base Excess 8.8 H (-2.0-2.0) VBG Hemoglobin 13.8 VBG Carboxyhemoglobin 8.4 H* (0.0-6.9) % T HGB POC Potassium 3.4 L (3.5-5.1) Sodium (137-145) mmol/L Potassium (3.5-5.1) mmol/L Chloride (98-107) mmol/L Carbon Dioxide (22-30) mmol/L Anion Gap (5-15) MEQ/L BUN (7-17) mg/dL Creatinine (0.52-1.04) mg/dL Estimated GFR ML/MIN Glucose (74-106) mg/dL Calcium (8.4-10.2) mg/dL Magnesium (1.6-2.3) mg/dL Total Bilirubin (0.2-1.3) mg/dL AST (14-36) U/L ALT (0-35) U/L Alkaline Phosphatase (38-126) U/L Troponin I < 0.012 (0.000-0.034) ng/mL NT-Pro-B Natriuret Pep (0-900) pg/mL Serum Total Protein (6.3-8.2) g/dL Albumin (3.5-5.0) g/dL Urinalys Dipstick Clnc MAIN LAB Urine Color YELLOW (YELLOW) Urine Appearance CLEAR (CLEAR) Urine pH 8.0 (5-6) Ur Specific [place] 1.020 (1.005-1.025) POC Urine Protein Conf 30 (Negative) Urine Ketones NEGATIVE (NEGATIVE) Urine Nitrite NEGATIVE (NEGATIVE) Urine Bilirubin NEGATIVE (NEGATIVE) Urine Urobilinogen 0.2 (0-1) mg/dL Urine Leukocytes NEGATIVE (NEGATIVE) Urine WBC (Auto) NONE (0-5) /HPF Urine RBC (Auto) 0-2 (0-2) /HPF U Epithel Cells (Auto) NONE (FEW) /HPF Urine Bacteria (Auto) NONE (NEGATIVE) /HPF Urine RBC TRACE-LYSED (0-5) [place]/ul Urine Mucus (Auto) SLIGHT (NEGATIVE) /HPF Ur Culture Indicated? NO Urine Glucose NEGATIVE (NEGATIVE) mg/dL 07/03/21 07/03/21 07/03/21 Range/Units 21:00 21:00 21:00 WBC 11.6 H (4.0-10.5) x10^3/uL RBC 4.92 (4.1-5.4) x10^6/uL Hgb 14.1 (12.0-16.0) g/dL Hct 43.6 (35-47) % MCV 88.6 (78-100) fL MCH 28.7 (26-32) pg MCHC 32.3 (32-36) g/dL RDW 13.6 (11.5-14.0) % Plt Count 253 (150-450) x10^3/uL MPV 9.2 (7.5-11.0) fL Gran % 66.8 H (36.0-66.0) % Immature Gran % (Auto) 0.6 H (0.00-0.4) % Nucleat RBC Rel Count 0.0 (0.00-0.1) % Eos # (Auto) 0.45 (0-0.5) x10^3/uL Immature Gran # (Auto) 0.07 H (0.00-0.03) x10^3u/L Absolute Lymphs (auto) 2.37 (1.0-4.6) x10^3/uL Absolute Monos (auto) 0.86 (0.0-1.3) x10^3/uL Absolute Nucleated RBC 0.00 (0.00-0.01) x10^3u/L Lymphocytes % 20.4 L (24.0-44.0) % Monocytes % 7.4 (0.0-12.0) % Eosinophils % 3.9 (0.00-5.0) % Basophils % 0.9 (0.0-0.4) % Absolute Granulocytes 7.78 H (1.4-6.9) x10^3/uL Basophils # 0.11 (0-0.4) x10^3/uL PT 10.8 (9.4-12.5) SECONDS INR 1.02 (0.8-3.0) pO2/FiO2 Ratio % VBG pH (7.32-7.42) VBG pCO2 at Pat Temp (42-55) mm/Hg VBG pO2 at Pat Temp (25-40) mm/Hg VBG HCO3 (22-28) meq/L VBG O2 Sat (Radha) (95-100) VBG Base Excess (-2.0-2.0) VBG Hemoglobin VBG Carboxyhemoglobin (0.0-6.9) % T HGB POC Potassium (3.5-5.1) Sodium 128 L (137-145) mmol/L Potassium 3.6 (3.5-5.1) mmol/L Chloride 89 L (98-107) mmol/L Carbon Dioxide 32 H (22-30) mmol/L Anion Gap 10.6 (5-15) MEQ/L BUN 5 L (7-17) mg/dL Creatinine 0.39 L (0.52-1.04) mg/dL Estimated GFR > 60.0 ML/MIN Glucose 106 (74-106) mg/dL Calcium 9.0 (8.4-10.2) mg/dL Magnesium 1.9 (1.6-2.3) mg/dL Total Bilirubin 0.60 (0.2-1.3) mg/dL AST 27 (14-36) U/L ALT 17 (0-35) U/L Alkaline Phosphatase 128 H (38-126) U/L Troponin I (0.000-0.034) ng/mL NT-Pro-B Natriuret Pep 527 (0-900) pg/mL Serum Total Protein 7.8 (6.3-8.2) g/dL Albumin 4.3 (3.5-5.0) g/dL Urinalys Dipstick Clnc Urine Color (YELLOW) Urine Appearance (CLEAR) Urine pH (5-6) Ur Specific [place] (1.005-1.025) POC Urine Protein Conf (Negative) Urine Ketones (NEGATIVE) Urine Nitrite (NEGATIVE) Urine Bilirubin (NEGATIVE) Urine Urobilinogen (0-1) mg/dL Urine Leukocytes (NEGATIVE) Urine WBC (Auto) (0-5) /HPF Urine RBC (Auto) (0-2) /HPF U Epithel Cells (Auto) (FEW) /HPF Urine Bacteria (Auto) (NEGATIVE) /HPF Urine RBC (0-5) [place]/ul Urine Mucus (Auto) (NEGATIVE) /HPF Ur Culture Indicated? Urine Glucose (NEGATIVE) mg/dL - Progress Progress: improved Air Movement: good Progress Note: 07/03/21 22:40 Patient is feeling much better, she has improvement in her dyspnea sensation and had improved airflow on repeat evaluation; on her lab work, she had an elevated carboxyhemoglobin, but is consistent with her smoking history and she is had no exposure any cover monoxide or symptoms otherwise for it. Patient this time can be discharged home once her blood pressure is better controlled as she has been given a third dose of labetalol and treat her COPD exacerbation as an outpatient with oral steroids, Elisa scheduled therapy and finished a course of Zithromax for COPD exacerbation as she has a history of using oxygen at home and she has this for her usage already. 07/03/21 23:08 Patient's systolic blood pressure has not gone under 200 of her systolic even after 60 mg of labetalol IV, so after discussion with Dr. Hobson, hospitalist that at [facility], patient will be admitted for continued blood pressure management as well as management of her COPD exacerbation Blood Culture(s) Obtained: No Antibiotics given: Yes (for COPD exacerbation) Discussed with DrTodd: Paul (discussed the patient and her presentation, labs and elevated blood pressure. Dr Hobson accepted the patient for observation) Will see patient in: hospital (observation) Counseled pt/family regarding: lab results, diagnosis, need for follow-up - Departure Departure Disposition: Observation (to [facility]) Clinical Impression: Dyspnea, COPD exacerbation, Hypertensive urgency, Carboxyhemoglobinemia Condition: Good Critical Care Time: No Referrals: [facility] [Primary Care Provider] - Follow up/PCP as directed Instructions: Chronic Obstructive Pulmonary Disease, Shortness of Breath (Dyspnea) (DC), Exacerbation of COPD (DC) Prescriptions: Albuterol/Ipratropium 3ml Neb* [DUONEB 0.5-3 MG/3 ml Neb] 3 ml NEBULIZE Q4H PRN PRN #1 PRN Reason: Wheezing/Chest Congestion Azithromycin [Azithromycin 250 mg Pack] 250 mg PO DAILY 4 Days #4 tablet Prednisone 20 mg [Deltasone 20 mg] 60 mg PO DAILY PRN #9 tablet PRN Reason: Sore Throat Relief
[2021-07-03 21:02] LABS: Absolute Neutrophil Ct (ANC) 7.78 x10^3/uL (1.4-6.9); Basophil (Absolute #) 0.11 x10^3/uL (0-0.4); Eosinophil % 3.9 % (0.00-5.0); Eosinophil (Absolute #) 0.45 x10^3/uL (0-0.5); Hematocrit 43.6 % (35-47); Hemoglobin 14.1 g/dL (12.0-16.0); Lymphocyte (Absolute #) 2.37 x10^3/uL (1.0-4.6); Lymphocytes % 20.4 % (24.0-44.0); Mean Cell Volume 88.6 fL (78-100); Mean Corpuscular Hemoglobin 28.7 pg (26-32); Mean Corpuscular Hgb Concent. 32.3 g/dL (32-36); Mean Platelet Volume 9.2 fL (7.5-11.0); Monocyte (Absolute #) 0.86 x10^3/uL (0.0-1.3); Monocytes % 7.4 % (0.0-12.0); Neutrophil % 66.8 % (36.0-66.0); Platelet Count 253 x10^3/uL (150-450); Red Blood Count 4.92 x10^6/uL (4.1-5.4); Red Cell Distribution Width 13.6 % (11.5-14.0); White Blood Count 11.6 x10^3/uL (4.0-10.5)
[2021-07-03 21:15] LABS: INR 1.02 (0.8-3.0); PROTIME 10.8 SECONDS (9.4-12.5)
[2021-07-03 21:23] LABS: ALBUMIN 4.3 g/dL (3.5-5.0); ALKALINE PHOSPHATASE 128 U/L (38-126); ANION GAP 10.6 MEQ/L (5-15); BLOOD UREA NITROGEN 5 mg/dL (7-17); CHLORIDE 89 mmol/L (98-107); Carbon Dioxide 32 mmol/L (22-30); Creatinine 1 0.39 mg/dL (0.52-1.04); EST GLOMERULAR FILTRATION RATE > 60.0 ML/MIN; Glucose 106 mg/dL (74-106); MAGNESIUM 1.9 mg/dL (1.6-2.3); NT PRO BNP 527 pg/mL (0-900); Potassium 3.6 mmol/L (3.5-5.1); SGOT/AST 27 U/L (14-36); SGPT/ALT 17 U/L (0-35); SODIUM 128 mmol/L (137-145); Total Protein 7.8 g/dL (6.3-8.2)
[2021-07-03] MEDS ORDERED: solu-MEDROL ONE (21:29)
[2021-07-03] MEDS ORDERED: Sterile H2O 10 ml IJ ONE (21:29)
[2021-07-03 22:12] LABS: VBG BASE EXCESS 8.8 (-2.0-2.0); VBG HCO3- 34.6 meq/L (22-28); VBG HEMOGLOBIN 13.8; VBG O2 SATURATION 82.9 (95-100); VBG POTASSIUM 3.4 (3.5-5.1); VBG pH 7.44 (7.32-7.42)
[2021-07-03 22:13] LABS: VBG CARBOXYHEMOGLOBIN 8.4 % T HGB (0.0-6.9)
[2021-07-03 22:33] LABS: Appearance CLEAR (CLEAR); Bilirubin NEGATIVE (NEGATIVE); Glucose NEGATIVE (NEGATIVE); Ketones NEGATIVE (NEGATIVE); Nitrite NEGATIVE (NEGATIVE); Protein,Urine Dip 30 (Negative); RBC TRACE-LYSED Ery/ul (0-5); Urobilinogen 0.2 mg/dL (0-1)
[2021-07-03 22:34] LABS: Dipstick done @ ? MAIN LAB
[2021-07-03] MEDS ORDERED: Zithromax 250 MG TABLET PO ONE (22:34)
[2021-07-03 22:35] LABS: Mucus SLIGHT /HPF (NEGATIVE); RBC 0-2 /HPF (0-2)
[2021-07-03 22:36] LABS: Urine Cultured Indicated? NO
[2021-07-03] MEDS ORDERED: Zithromax 250 MG TABLET ONE (22:56)
[2021-07-03 23:51] LABS: INFLUENZA A NEGATIVE (NEGATIVE); INFLUENZA B NEGATIVE (NEGATIVE); RESPIRATORY SYNCTIAL VIRUS NEGATIVE (Negative); SARS-CoV-2 Xpert Express NEGATIVE (NEGATIVE)
[2021-07-04] MEDS ORDERED: Sodium Chloride 0.9% 1000 ML 1,000 ML IV SCH (00:49)
[2021-07-04] MEDS ORDERED: MORPHINE SULFATE 4 MG INJ IV PRN (00:49)
[2021-07-04] MEDS ORDERED: TYLENOL 325 MG PO PRN (00:49)
[2021-07-04] MEDS: TRANDATE 20 MG/4 ML SYRINGE IV PRN ×2 (01:17→06:42)
[2021-07-04] MEDS: Zofran 4 MG/2 ML VIAL IV PRN ×3 (01:23→18:27)
[2021-07-04] MEDS: DUONEB 0.5-3 MG/3 ml Neb IH SCH ×4 (02:14→18:16)
[2021-07-04 04:42] LABS: Absolute Neutrophil Ct (ANC) 9.31 x10^3/uL (1.4-6.9); Basophil (Absolute #) 0.06 x10^3/uL (0-0.4); Eosinophil % 0.2 % (0.00-5.0); Eosinophil (Absolute #) 0.02 x10^3/uL (0-0.5); Hematocrit 42.4 % (35-47); Hemoglobin 13.8 g/dL (12.0-16.0); Lymphocyte (Absolute #) 0.73 x10^3/uL (1.0-4.6); Lymphocytes % 7.1 % (24.0-44.0); Mean Cell Volume 88.1 fL (78-100); Mean Corpuscular Hemoglobin 28.7 pg (26-32); Mean Corpuscular Hgb Concent. 32.5 g/dL (32-36); Mean Platelet Volume 9.2 fL (7.5-11.0); Monocyte (Absolute #) 0.12 x10^3/uL (0.0-1.3); Monocytes % 1.2 % (0.0-12.0); Neutrophil % 90.3 % (36.0-66.0); Platelet Count 247 x10^3/uL (150-450); Red Blood Count 4.81 x10^6/uL (4.1-5.4); Red Cell Distribution Width 13.5 % (11.5-14.0); White Blood Count 10.3 x10^3/uL (4.0-10.5)
[2021-07-04 05:05] LABS: ALBUMIN 4.1 g/dL (3.5-5.0); ALKALINE PHOSPHATASE 112 U/L (38-126); BLOOD UREA NITROGEN 6 mg/dL (7-17); CHLORIDE 88 mmol/L (98-107); Carbon Dioxide 29 mmol/L (22-30); Creatinine 1 0.42 mg/dL (0.52-1.04); EST GLOMERULAR FILTRATION RATE > 60.0 ML/MIN; Glucose 148 mg/dL (74-106); Potassium 3.5 mmol/L (3.5-5.1); SGOT/AST 26 U/L (14-36); SGPT/ALT 19 U/L (0-35); SODIUM 126 mmol/L (137-145); Total Protein 7.8 g/dL (6.3-8.2)
[2021-07-04] MEDS ORDERED: solu-MEDROL ONE ×2 (06:47→23:48)
[2021-07-04] MEDS: solu-MEDROL 60 MG, Sterile H2O 10 ml 2 ML IV SCH ×8 (06:50→23:51)
[2021-07-04] MEDS: Advair Hfa 230/21 Mcg COMMON CANISTER IH SCH ×2 (07:17→18:16)
[2021-07-04] MEDS ORDERED: APRESOLINE 20 MG/ML INJ IV PRN (08:01)
--- NOTE | 2021-07-04 08:40 | PCM.HP ---
History of Present Illness - Chief Complaint Chief Complaint: Hypertensive Urgency History of Present Illness: is a 60 year old female who presented to the emergency department with several days of cough, shortness of breath and sputum production. She has a history of copd and is on home oxygen, denies chest pain, no visual changes. - Review of Systems Constitutional: No Fever, No Chills Respiratory: Cough, Short Of Breath, Wheezing Cardiac: No Chest Pain, No Edema, No Syncope Abdominal/Gastrointestinal: No Abdominal Pain, No Nausea, No Vomiting, No Diarrhea Genitourinary Symptoms: No Dysuria Skin: No Rash Psychological: Anxiety All Other Systems: Reviewed and Negative Medications & Allergies Home Medications: Home Medication List ARIPiprazole [Aripiprazole] 5 mg PO DAILY 01/11/20 [History Confirmed 07/04/21] Carbamazepine 200 mg [Tegretol 200 MG] 400 mg PO BID 01/11/20 [History Confirmed 07/04/21] Duloxetine HCl 30 mg [Cymbalta 30 MG Capsule] 60 mg PO BID 01/11/20 [History Confirmed 07/04/21] Pregabalin [Lyrica] 225 mg PO BID 01/11/20 [History Confirmed 07/04/21] Tizanidine HCl 4 mg [Zanaflex 4 MG] 4 mg PO Q8H PRN 01/11/20 [History Confirmed 07/04/21] Albuterol Sulfate [Proair Hfa] 2 puffs IH Q6H PRN PRN 06/30/20 [History Confirmed 07/04/21] Trazodone HCl 50 mg [Desyrel 50 mg] 200 mg PO HS 06/30/20 [History Confirmed 07/04/21] ALPRAZolam 0.25 MG [xanAX 0.25 MG] 0.25 mg PO TID 03/06/21 [History Confirmed 07/04/21] Budesonide/Formoterol Fumarate [Budesonide-Formoterol 160-4.5] 2 puff IH BID 03/06/21 [History Confirmed 07/04/21] Carvedilol 12.5 mg [Coreg 12.5 mg] 25 mg PO BID 03/06/21 [History Confirmed 07/04/21] Albuterol/Ipratropium 3ml Neb* [DUONEB 0.5-3 MG/3 ml Neb] 3 ml NEBULIZE Q4H PRN PRN #1 07/03/21 [Rx] HydrALAzine HCL 25 MG TAB [Apresoline 25 MG TABLET] 25 mg PO TID 07/04/21 [History Confirmed 07/04/21] Levothyroxine Sodium [Euthyrox] 1 tab PO DAILY 07/04/21 [History Confirmed 07/04/21] Allergies/Adverse Reactions: Allergies Allergy/AdvReac Type Severity Reaction Status Date / Time No Known Drug Allergies Allergy Verified 07/03/21 21:00 - Past Medical History Past Medical History: Yes Neurological History: Peripheral Neuropathy ENT History: No Pertinent History Cardiac History: Congestive Heart Failure, Hypertension Respiratory History: Bronchitis, CHF, COPD, Pneumonia Endocrine Medical History: No Pertinent History Musculoskelatal History: No Pertinent History GI Medical History: No Pertinent History History: No Pertinent History Pyscho-Social History: No Pertinent History Reproductive Disorders: No Pertinent History Comment: pt unable to participate in admission documentation due to severe confusion, history taken off meds list - Past Surgical History Past Surgical History: Yes Neuro Surgical History: No Pertinent History Cardiac History: No Pertinent History Respiratory Surgery: No Pertinent History GI Surgical History: Appendectomy Genitourinary Surgical Hx: No Pertinent History Musculskeletal Surgical Hx: No Pertinent History Female Surgical History: No Pertinent History Other Surgical History: elbow surgery. skin cancer removed - Social History Smoking Status: Former smoker How long have you smoked: 20 yrs Exposure to second hand smoke: No Alcohol: None Drug Use: none - Physical Exam Vital Signs: Vital Signs - 24 hr Temp Pulse Resp BP BP Pulse Ox 07/04/21 07:17 67 22 96 07/04/21 06:44 97.1 F 74 21 214/97 94 L 07/04/21 06:42 214/97 07/04/21 04:00 98.6 F 75 19 179/86 93 L 07/04/21 02:10 66 20 93 L 07/04/21 01:58 64 198/85 94 L 07/04/21 01:17 204/84 93 L 07/04/21 00:59 97.7 F 69 20 204/84 93 L 07/04/21 00:00 62 21 193/112 98 07/03/21 23:00 62 194/113 07/03/21 22:03 64 22 201/101 96 07/03/21 21:56 63 21 201/107 96 07/03/21 21:09 72 24 93 L 07/03/21 20:46 71 18 225/109 95 General Appearance: no apparent distress, anxiety, other (tearful) Neck Exam: normal inspection, non-tender, supple Respiratory Exam: prolonged expirations, wheezing Cardiovascular Exam: regular rate/rhythm, normal heart sounds, normal peripheral pulses Gastrointestinal/Abdomen Exam: soft, normal bowel sounds, No tenderness, No mass Extremity Exam: normal inspection, normal range of motion, pelvis stable Skin Exam: normal color, warm, dry, No rash Results - Labs Lab/Micro Results: Lab Results-Last 24 Hours 07/03/21 07/03/21 07/03/21 Range/Units 21:00 21:00 21:00 WBC 11.6 H (4.0-10.5) x10^3/uL RBC 4.92 (4.1-5.4) x10^6/uL Hgb 14.1 (12.0-16.0) g/dL Hct 43.6 (35-47) % MCV 88.6 (78-100) fL MCH 28.7 (26-32) pg MCHC 32.3 (32-36) g/dL RDW 13.6 (11.5-14.0) % Plt Count 253 (150-450) x10^3/uL MPV 9.2 (7.5-11.0) fL Gran % 66.8 H (36.0-66.0) % Immature Gran % (Auto) 0.6 H (0.00-0.4) % Nucleat RBC Rel Count 0.0 (0.00-0.1) % Eos # (Auto) 0.45 (0-0.5) x10^3/uL Immature Gran # (Auto) 0.07 H (0.00-0.03) x10^3u/L Absolute Lymphs (auto) 2.37 (1.0-4.6) x10^3/uL Absolute Monos (auto) 0.86 (0.0-1.3) x10^3/uL Absolute Nucleated RBC 0.00 (0.00-0.01) x10^3u/L Lymphocytes % 20.4 L (24.0-44.0) % Monocytes % 7.4 (0.0-12.0) % Eosinophils % 3.9 (0.00-5.0) % Basophils % 0.9 (0.0-0.4) % Absolute Granulocytes 7.78 H (1.4-6.9) x10^3/uL Basophils # 0.11 (0-0.4) x10^3/uL PT 10.8 (9.4-12.5) SECONDS INR 1.02 (0.8-3.0) pO2/FiO2 Ratio % VBG pH (7.32-7.42) VBG pCO2 at Pat Temp (42-55) mm/Hg VBG pO2 at Pat Temp (25-40) mm/Hg VBG HCO3 (22-28) meq/L VBG O2 Sat (Radha) (95-100) VBG Base Excess (-2.0-2.0) VBG Hemoglobin VBG Carboxyhemoglobin (0.0-6.9) % T HGB POC Potassium (3.5-5.1) Sodium 128 L (137-145) mmol/L Potassium 3.6 (3.5-5.1) mmol/L Chloride 89 L (98-107) mmol/L Carbon Dioxide 32 H (22-30) mmol/L Anion Gap 10.6 (5-15) MEQ/L BUN 5 L (7-17) mg/dL Creatinine 0.39 L (0.52-1.04) mg/dL Estimated GFR > 60.0 ML/MIN Glucose 106 (74-106) mg/dL Calcium 9.0 (8.4-10.2) mg/dL Magnesium 1.9 (1.6-2.3) mg/dL Total Bilirubin 0.60 (0.2-1.3) mg/dL AST 27 (14-36) U/L ALT 17 (0-35) U/L Alkaline Phosphatase 128 H (38-126) U/L Troponin I (0.000-0.034) ng/mL NT-Pro-B Natriuret Pep 527 (0-900) pg/mL Serum Total Protein 7.8 (6.3-8.2) g/dL Albumin 4.3 (3.5-5.0) g/dL Urinalys Dipstick Clnc Urine Color (YELLOW) Urine Appearance (CLEAR) Urine pH (5-6) Ur Specific [place] (1.005-1.025) POC Urine Protein Conf (Negative) Urine Ketones (NEGATIVE) Urine Nitrite (NEGATIVE) Urine Bilirubin (NEGATIVE) Urine Urobilinogen (0-1) mg/dL Urine Leukocytes (NEGATIVE) Urine WBC (Auto) (0-5) /HPF Urine RBC (Auto) (0-2) /HPF U Epithel Cells (Auto) (FEW) /HPF Urine Bacteria (Auto) (NEGATIVE) /HPF Urine RBC (0-5) Baldomero/ul Urine Mucus (Auto) (NEGATIVE) /HPF Ur Culture Indicated? Urine Glucose (NEGATIVE) mg/dL Influenza Type A Ag (NEGATIVE) Influenza Type B Ag (NEGATIVE) RSV (PCR) (Negative) SARS-CoV-2 (PCR) (NEGATIVE) 07/03/21 07/03/21 07/03/21 Range/Units 21:00 21:45 22:30 WBC (4.0-10.5) x10^3/uL RBC (4.1-5.4) x10^6/uL Hgb (12.0-16.0) g/dL Hct (35-47) % MCV (78-100) fL MCH (26-32) pg MCHC (32-36) g/dL RDW (11.5-14.0) % Plt Count (150-450) x10^3/uL MPV (7.5-11.0) fL Gran % (36.0-66.0) % Immature Gran % (Auto) (0.00-0.4) % Nucleat RBC Rel Count (0.00-0.1) % Eos # (Auto) (0-0.5) x10^3/uL Immature Gran # (Auto) (0.00-0.03) x10^3u/L Absolute Lymphs (auto) (1.0-4.6) x10^3/uL Absolute Monos (auto) (0.0-1.3) x10^3/uL Absolute Nucleated RBC (0.00-0.01) x10^3u/L Lymphocytes % (24.0-44.0) % Monocytes % (0.0-12.0) % Eosinophils % (0.00-5.0) % Basophils % (0.0-0.4) % Absolute Granulocytes (1.4-6.9) x10^3/uL Basophils # (0-0.4) x10^3/uL PT (9.4-12.5) SECONDS INR (0.8-3.0) pO2/FiO2 Ratio 21.0 % VBG pH 7.44 H (7.32-7.42) VBG pCO2 at Pat Temp 51 (42-55) mm/Hg VBG pO2 at Pat Temp 45 H (25-40) mm/Hg VBG HCO3 34.6 H* (22-28) meq/L VBG O2 Sat (Radha) 82.9 L (95-100) VBG Base Excess 8.8 H (-2.0-2.0) VBG Hemoglobin 13.8 VBG Carboxyhemoglobin 8.4 H* (0.0-6.9) % T HGB POC Potassium 3.4 L (3.5-5.1) Sodium (137-145) mmol/L Potassium (3.5-5.1) mmol/L Chloride (98-107) mmol/L Carbon Dioxide (22-30) mmol/L Anion Gap (5-15) MEQ/L BUN (7-17) mg/dL Creatinine (0.52-1.04) mg/dL Estimated GFR ML/MIN Glucose (74-106) mg/dL Calcium (8.4-10.2) mg/dL Magnesium (1.6-2.3) mg/dL Total Bilirubin (0.2-1.3) mg/dL AST (14-36) U/L ALT (0-35) U/L Alkaline Phosphatase (38-126) U/L Troponin I < 0.012 (0.000-0.034) ng/mL NT-Pro-B Natriuret Pep (0-900) pg/mL Serum Total Protein (6.3-8.2) g/dL Albumin (3.5-5.0) g/dL Urinalys Dipstick Clnc MAIN LAB Urine Color YELLOW (YELLOW) Urine Appearance CLEAR (CLEAR) Urine pH 8.0 (5-6) Ur Specific [place] 1.020 (1.005-1.025) POC Urine Protein Conf 30 (Negative) Urine Ketones NEGATIVE (NEGATIVE) Urine Nitrite NEGATIVE (NEGATIVE) Urine Bilirubin NEGATIVE (NEGATIVE) Urine Urobilinogen 0.2 (0-1) mg/dL Urine Leukocytes NEGATIVE (NEGATIVE) Urine WBC (Auto) NONE (0-5) /HPF Urine RBC (Auto) 0-2 (0-2) /HPF U Epithel Cells (Auto) NONE (FEW) /HPF Urine Bacteria (Auto) NONE (NEGATIVE) /HPF Urine RBC TRACE-LYSED (0-5) Baldomero/ul Urine Mucus (Auto) SLIGHT (NEGATIVE) /HPF Ur Culture Indicated? NO Urine Glucose NEGATIVE (NEGATIVE) mg/dL Influenza Type A Ag (NEGATIVE) Influenza Type B Ag (NEGATIVE) RSV (PCR) (Negative) SARS-CoV-2 (PCR) (NEGATIVE) 07/03/21 07/04/21 07/04/21 Range/Units 23:12 00:32 04:15 WBC (4.0-10.5) x10^3/uL RBC (4.1-5.4) x10^6/uL Hgb (12.0-16.0) g/dL Hct (35-47) % MCV (78-100) fL MCH (26-32) pg MCHC (32-36) g/dL RDW (11.5-14.0) % Plt Count (150-450) x10^3/uL MPV (7.5-11.0) fL Gran % (36.0-66.0) % Immature Gran % (Auto) (0.00-0.4) % Nucleat RBC Rel Count (0.00-0.1) % Eos # (Auto) (0-0.5) x10^3/uL Immature Gran # (Auto) (0.00-0.03) x10^3u/L Absolute Lymphs (auto) (1.0-4.6) x10^3/uL Absolute Monos (auto) (0.0-1.3) x10^3/uL Absolute Nucleated RBC (0.00-0.01) x10^3u/L Lymphocytes % (24.0-44.0) % Monocytes % (0.0-12.0) % Eosinophils % (0.00-5.0) % Basophils % (0.0-0.4) % Absolute Granulocytes (1.4-6.9) x10^3/uL Basophils # (0-0.4) x10^3/uL PT (9.4-12.5) SECONDS INR (0.8-3.0) pO2/FiO2 Ratio % VBG pH (7.32-7.42) VBG pCO2 at Pat Temp (42-55) mm/Hg VBG pO2 at Pat Temp (25-40) mm/Hg VBG HCO3 (22-28) meq/L VBG O2 Sat (Radha) (95-100) VBG Base Excess (-2.0-2.0) VBG Hemoglobin VBG Carboxyhemoglobin (0.0-6.9) % T HGB POC Potassium (3.5-5.1) Sodium (137-145) mmol/L Potassium (3.5-5.1) mmol/L Chloride (98-107) mmol/L Carbon Dioxide (22-30) mmol/L Anion Gap (5-15) MEQ/L BUN (7-17) mg/dL Creatinine (0.52-1.04) mg/dL Estimated GFR ML/MIN Glucose (74-106) mg/dL Calcium (8.4-10.2) mg/dL Magnesium (1.6-2.3) mg/dL Total Bilirubin (0.2-1.3) mg/dL AST (14-36) U/L ALT (0-35) U/L Alkaline Phosphatase (38-126) U/L Troponin I < 0.012 < 0.012 (0.000-0.034) ng/mL NT-Pro-B Natriuret Pep (0-900) pg/mL Serum Total Protein (6.3-8.2) g/dL Albumin (3.5-5.0) g/dL Urinalys Dipstick Clnc Urine Color (YELLOW) Urine Appearance (CLEAR) Urine pH (5-6) Ur Specific [place] (1.005-1.025) POC Urine Protein Conf (Negative) Urine Ketones (NEGATIVE) Urine Nitrite (NEGATIVE) Urine Bilirubin (NEGATIVE) Urine Urobilinogen (0-1) mg/dL Urine Leukocytes (NEGATIVE) Urine WBC (Auto) (0-5) /HPF Urine RBC (Auto) (0-2) /HPF U Epithel Cells (Auto) (FEW) /HPF Urine Bacteria (Auto) (NEGATIVE) /HPF Urine RBC (0-5) Baldomero/ul Urine Mucus (Auto) (NEGATIVE) /HPF Ur Culture Indicated? Urine Glucose (NEGATIVE) mg/dL Influenza Type A Ag NEGATIVE (NEGATIVE) Influenza Type B Ag NEGATIVE (NEGATIVE) RSV (PCR) NEGATIVE (Negative) SARS-CoV-2 (PCR) NEGATIVE (NEGATIVE) 07/04/21 07/04/21 Range/Units 04:15 04:15 WBC 10.3 (4.0-10.5) x10^3/uL RBC 4.81 (4.1-5.4) x10^6/uL Hgb 13.8 (12.0-16.0) g/dL Hct 42.4 (35-47) % MCV 88.1 (78-100) fL MCH 28.7 (26-32) pg MCHC 32.5 (32-36) g/dL RDW 13.5 (11.5-14.0) % Plt Count 247 (150-450) x10^3/uL MPV 9.2 (7.5-11.0) fL Gran % 90.3 H (36.0-66.0) % Immature Gran % (Auto) 0.6 H (0.00-0.4) % Nucleat RBC Rel Count 0.0 (0.00-0.1) % Eos # (Auto) 0.02 (0-0.5) x10^3/uL Immature Gran # (Auto) 0.06 H (0.00-0.03) x10^3u/L Absolute Lymphs (auto) 0.73 L (1.0-4.6) x10^3/uL Absolute Monos (auto) 0.12 (0.0-1.3) x10^3/uL Absolute Nucleated RBC 0.00 (0.00-0.01) x10^3u/L Lymphocytes % 7.1 L (24.0-44.0) % Monocytes % 1.2 (0.0-12.0) % Eosinophils % 0.2 (0.00-5.0) % Basophils % 0.6 (0.0-0.4) % Absolute Granulocytes 9.31 H (1.4-6.9) x10^3/uL Basophils # 0.06 (0-0.4) x10^3/uL PT (9.4-12.5) SECONDS INR (0.8-3.0) pO2/FiO2 Ratio % VBG pH (7.32-7.42) VBG pCO2 at Pat Temp (42-55) mm/Hg VBG pO2 at Pat Temp (25-40) mm/Hg VBG HCO3 (22-28) meq/L VBG O2 Sat (Radha) (95-100) VBG Base Excess (-2.0-2.0) VBG Hemoglobin VBG Carboxyhemoglobin (0.0-6.9) % T HGB POC Potassium (3.5-5.1) Sodium 126 L (137-145) mmol/L Potassium 3.5 (3.5-5.1) mmol/L Chloride 88 L (98-107) mmol/L Carbon Dioxide 29 (22-30) mmol/L Anion Gap 13.0 (5-15) MEQ/L BUN 6 L (7-17) mg/dL Creatinine 0.42 L (0.52-1.04) mg/dL Estimated GFR > 60.0 ML/MIN Glucose 148 H (74-106) mg/dL Calcium 9.0 (8.4-10.2) mg/dL Magnesium (1.6-2.3) mg/dL Total Bilirubin 0.60 (0.2-1.3) mg/dL AST 26 (14-36) U/L ALT 19 (0-35) U/L Alkaline Phosphatase 112 (38-126) U/L Troponin I (0.000-0.034) ng/mL NT-Pro-B Natriuret Pep (0-900) pg/mL Serum Total Protein 7.8 (6.3-8.2) g/dL Albumin 4.1 (3.5-5.0) g/dL Urinalys Dipstick Clnc Urine Color (YELLOW) Urine Appearance (CLEAR) Urine pH (5-6) Ur Specific [place] (1.005-1.025) POC Urine Protein Conf (Negative) Urine Ketones (NEGATIVE) Urine Nitrite (NEGATIVE) Urine Bilirubin (NEGATIVE) Urine Urobilinogen (0-1) mg/dL Urine Leukocytes (NEGATIVE) Urine WBC (Auto) (0-5) /HPF Urine RBC (Auto) (0-2) /HPF U Epithel Cells (Auto) (FEW) /HPF Urine Bacteria (Auto) (NEGATIVE) /HPF Urine RBC (0-5) Baldomero/ul Urine Mucus (Auto) (NEGATIVE) /HPF Ur Culture Indicated? Urine Glucose (NEGATIVE) mg/dL Influenza Type A Ag (NEGATIVE) Influenza Type B Ag (NEGATIVE) RSV (PCR) (Negative) SARS-CoV-2 (PCR) (NEGATIVE) - Radiology Impressions Radiology Exams & Impressions: Radiology Procedures Category Date Time Status CHEST 2 VIEWS (PA AND LAT) Stat Exams 07/03/21 20:50 Taken - Other Procedures and Tests Respiratory Therapy 07/03/21 21:08 Respiratory Therapy Assessment DAILY 07/04/21 00:49 Oxygen Nasal Cannula 3 lpm Assessment/Plan (1) COPD exacerbation Current Visit: Yes Status: Acute Assessment & Plan: continue rocephin/zithromax due to sputum change and production with copd exacerbation, IV solu medrol and nebs at this time. Code(s): J44.1 - CHRONIC OBSTRUCTIVE PULMONARY DISEASE W (ACUTE) EXACERBATION (2) Hypertensive urgency Current Visit: Yes Status: Acute Assessment & Plan: labetalol ineffective, switch to prn hydralazine, add aldactone. check thyroid functions as well as renin/ramos ratio Code(s): I16.0 - HYPERTENSIVE URGENCY (3) Hyponatremia Current Visit: Yes Status: Acute Code(s): E87.1 - HYPO-OSMOLALITY AND HYPONATREMIA
[2021-07-04] MEDS: Aldactone 25 MG PO SCH (08:43)
--- NOTE | 2021-07-04 08:54 | XRAY ---
Indication: Short of breath, cough, and wheezing. Comparison: March 06, 2021. PA/lateral chest hyperinflated and clear. Heart not enlarged. Bony thorax intact again with mild osteopenia and degenerative changes. No new/acute findings.
[2021-07-04] MEDS: Pepcid 20 MG VIAL IV SCH ×2 (09:27→22:01)
[2021-07-04] MEDS: ROCEPHIN 1 Gm-D5w 50 ml Bag** 1 G/50 ML IVPB IV SCH (09:28)
[2021-07-04] MEDS ORDERED: Zanaflex 4 MG PO PRN (09:28)
[2021-07-04] MEDS: Zithromax 500 MG/ 250 ML NaCl Premix 500 MG/250 ML IVPB IV SCH (09:36)
[2021-07-04] MEDS: LYRICA 75 MG CAP PO SCH ×2 (09:40→21:59)
[2021-07-04] MEDS: Abilify 10 MG PO SCH (09:40)
[2021-07-04] MEDS: Cymbalta 30 MG Capsule PO SCH ×2 (09:40→21:59)
[2021-07-04] MEDS: SYNTHROID 150 MCG PO SCH (09:41)
[2021-07-04] MEDS: COREG 12.5 MG PO SCH ×2 (09:41→21:58)
[2021-07-04] MEDS: xanAX 0.25 MG PO SCH ×3 (09:41→21:58)
[2021-07-04] MEDS: Apresoline 25 MG TABLET PO SCH ×3 (09:41→21:59)
[2021-07-04] MEDS ORDERED: NON-FORMULARY ITEM (Aripiprazole [Aripiprazole] 5 MG Tablet) PO SCH (10:00)
[2021-07-04] MEDS ORDERED: NON-FORMULARY ITEM (Pregabalin [Lyrica] 300 MG Capsule) PO SCH (10:00)
[2021-07-04] MEDS: Tegretol 200 MG PO SCH ×2 (10:02→21:58)
--- NOTE | 2021-07-04 11:44 | XRAY ---
Indication: Hypertensive urgency. Conventional contrast enhanced CTA abdomen performed using 100 cc Isovue 370 contrast. Two-dimensional sagittal and coronal reformatted images obtained. Additional 3-dimensional reformatted images obtained using a separate workstation. Comparison: CT abdomen/pelvis with contrast June 03, 2021. Abdominal aorta is normal in course and caliber again with mild distal aortic calcifications. Normal CTA appearance to the visualized iliac arteries. Widely patent celiac, superior mesenteric, and inferior mesenteric arteries all appear normal in CT appearance. A single renal artery supplies each kidney with stable minimal eccentric calcification in proximal right main renal artery. No critical stenosis, dissection, or poststenotic dilatation. Remaining left and right main renal arteries are normal in CT appearance. Noncontrasted stomach and visualized bowel loops remain nonobstructed again with appendectomy and minimal descending colonic diverticulosis. Stable 1 cm gallstone and small left renal cysts. No free fluid/air. Remaining visualized liver, gallbladder, pancreas, spleen, adrenal glands, kidneys, and proximal ureters are unremarkable. No pathologic retroperitoneal lymphadenopathy. Lung bases again demonstrates mild dependent atelectasis. Stable 5 mm posterior medial left lower lobe subpleural noncalcified nodule. Visualized osseous structures intact again with mild multilevel degenerative spondylosis and grade 1 L4 spondylolisthesis. Impression: 1. No change compared to CT one month ago again demonstrating mild arteriosclerotic calcifications distal aorta without aneurysm/dissection. Also stable minimal calcification proximal right main renal artery without critical stenosis/obstruction. Remaining CTA abdomen with contrast exam is negative. 2. Again incidental small gallstone, colonic diverticulosis, left renal cysts, multilevel degenerative spondylosis, minimal grade 1 L4 spondylolysis, and 5 mm indeterminant left lower lobe noncalcified nodule.
[2021-07-04] MEDS: NICOTINE PATCH 7MG TD SCH (20:05)
[2021-07-04] MEDS ORDERED: DESYREL 50 MG PO SCH (22:00)
[2021-07-05] MEDS: DUONEB 0.5-3 MG/3 ml Neb IH SCH ×2 (00:18→06:47)
[2021-07-05 04:52] LABS: Absolute Neutrophil Ct (ANC) 11.93 x10^3/uL (1.4-6.9); Basophil (Absolute #) 0.03 x10^3/uL (0-0.4); Eosinophil (Absolute #) 0 x10^3/uL (0-0.5); Hematocrit 41.1 % (35-47); Hemoglobin 13.5 g/dL (12.0-16.0); Lymphocyte (Absolute #) 0.92 x10^3/uL (1.0-4.6); Lymphocytes % 6.9 % (24.0-44.0); Mean Cell Volume 87.8 fL (78-100); Mean Corpuscular Hemoglobin 28.8 pg (26-32); Mean Corpuscular Hgb Concent. 32.8 g/dL (32-36); Mean Platelet Volume 9.2 fL (7.5-11.0); Neutrophil % 89.1 % (36.0-66.0); Platelet Count 235 x10^3/uL (150-450); Red Blood Count 4.68 x10^6/uL (4.1-5.4); Red Cell Distribution Width 13.7 % (11.5-14.0); White Blood Count 13.4 x10^3/uL (4.0-10.5)
[2021-07-05] MEDS ORDERED: solu-MEDROL ONE (06:10)
[2021-07-05] MEDS: solu-MEDROL 60 MG, Sterile H2O 10 ml 2 ML IV SCH ×2 (06:31)
[2021-07-05] MEDS: Advair Hfa 230/21 Mcg COMMON CANISTER IH SCH (06:57)
[2021-07-05] MEDS: xanAX 0.25 MG PO SCH (08:19)
[2021-07-05] MEDS: Cymbalta 30 MG Capsule PO SCH (08:19)
[2021-07-05] MEDS: LYRICA 75 MG CAP PO SCH (08:19)
[2021-07-05] MEDS: SYNTHROID 150 MCG PO SCH (08:20)
[2021-07-05] MEDS: COREG 12.5 MG PO SCH (08:20)
[2021-07-05] MEDS: Abilify 10 MG PO SCH (08:20)
[2021-07-05] MEDS: Pepcid 20 MG VIAL IV SCH (08:20)
[2021-07-05] MEDS: Apresoline 25 MG TABLET PO SCH (08:21)
[2021-07-05] MEDS: Aldactone 25 MG PO SCH (08:21)
[2021-07-05] MEDS: Tegretol 200 MG PO SCH (08:22)
[2021-07-05] MEDS: ROCEPHIN 1 Gm-D5w 50 ml Bag** 1 G/50 ML IVPB IV SCH (08:23)
--- NOTE | 2021-07-05 08:24 | PCM.DS ---
Discharge Summary Date of Admission: 07/04/21 00:42 Admitting Physician: PRICE FORBES Primary Care Provider: KADEN SCHAFER NP Allergies Allergies No Known Drug Allergies Allergy (Verified 07/03/21 21:00) Hospital Summary - Hospital Course Hospital Course: patient was admitted with cough, shortness of breath and exacerbation of copd. she is on 3L of home oxygen and continues to smoke. bp is labile and has been poorly controlled, she is doing much better today and feels back at her baseline on breathing, bp is better controlled and she is requesting discharge. - Vitals & Intake/Output Vital Signs: Vital Signs Temperature 97.5 F 07/05/21 08:00 Pulse Rate 61 07/05/21 08:00 Respiratory Rate 25 H 07/05/21 08:00 Blood Pressure 123/59 07/05/21 08:00 O2 Sat by Pulse Oximetry 95 07/05/21 08:00 Intake & Output: Intake & Output 07/02/21 07/03/21 07/04/21 07/05/21 11:59 11:59 11:59 11:59 Intake Total 840 Output Total 200 500 Balance -200 340 Weight 79.8 kg 82.6 kg - Lab Result Diagrams: 07/05/21 04:30 07/04/21 04:15 Lab Results-Last 24 Hrs: Lab Results-Last 24 Hours 07/04/21 07/04/21 07/04/21 Range/Units 08:03 23:41 Unknown WBC (4.0-10.5) x10^3/uL RBC (4.1-5.4) x10^6/uL Hgb (12.0-16.0) g/dL Hct (35-47) % MCV (78-100) fL MCH (26-32) pg MCHC (32-36) g/dL RDW (11.5-14.0) % Plt Count (150-450) x10^3/uL MPV (7.5-11.0) fL Gran % (36.0-66.0) % Immature Gran % (Auto) (0.00-0.4) % Nucleat RBC Rel Count (0.00-0.1) % Eos # (Auto) (0-0.5) x10^3/uL Immature Gran # (Auto) (0.00-0.03) x10^3u/L Absolute Lymphs (auto) (1.0-4.6) x10^3/uL Absolute Monos (auto) (0.0-1.3) x10^3/uL Absolute Nucleated RBC (0.00-0.01) x10^3u/L Lymphocytes % (24.0-44.0) % Monocytes % (0.0-12.0) % Eosinophils % (0.00-5.0) % Basophils % (0.0-0.4) % Absolute Granulocytes (1.4-6.9) x10^3/uL Basophils # (0-0.4) x10^3/uL Free T4 1.12 (0.76-1.46) ng/dL TSH 3rd Generation 1.550 (0.47-4.68) mIU/L Urine Sodium 19 L (30-90) mmol/L 05// Range/Units 04:30 WBC 13.4 H (4.0-10.5) x10^3/uL RBC 4.68 (4.1-5.4) x10^6/uL Hgb 13.5 (12.0-16.0) g/dL Hct 41.1 (35-47) % MCV 87.8 (78-100) fL MCH 28.8 (26-32) pg MCHC 32.8 (32-36) g/dL RDW 13.7 (11.5-14.0) % Plt Count 235 (150-450) x10^3/uL MPV 9.2 (7.5-11.0) fL Gran % 89.1 H (36.0-66.0) % Immature Gran % (Auto) 0.8 H (0.00-0.4) % Nucleat RBC Rel Count 0.0 (0.00-0.1) % Eos # (Auto) 0 (0-0.5) x10^3/uL Immature Gran # (Auto) 0.11 H (0.00-0.03) x10^3u/L Absolute Lymphs (auto) 0.92 L (1.0-4.6) x10^3/uL Absolute Monos (auto) 0.40 (0.0-1.3) x10^3/uL Absolute Nucleated RBC 0.00 (0.00-0.01) x10^3u/L Lymphocytes % 6.9 L (24.0-44.0) % Monocytes % 3.0 (0.0-12.0) % Eosinophils % 0.0 (0.00-5.0) % Basophils % 0.2 (0.0-0.4) % Absolute Granulocytes 11.93 H (1.4-6.9) x10^3/uL Basophils # 0.03 (0-0.4) x10^3/uL Free T4 (0.76-1.46) ng/dL TSH 3rd Generation (0.47-4.68) mIU/L Urine Sodium (30-90) mmol/L - Radiology Exams Ordered Rad Exams-Entire Visit: Radiology Procedures Category Date Time Status CHEST 2 VIEWS (PA AND LAT) Stat Exams 07/03/21 20:50 Completed CTA ABDOMEN W AND/OR WO CONTRA [CT] Routine Exams 07/04/21 09:14 Completed - Procedures and Test Procedures and Tests throughout Hospitalization: Therapy Orders & Screens 07/03/21 21:08 Respiratory Therapy Assessment DAILY Comment: 07/04/21 00:49 Oxygen Nasal Cannula 3 lpm Comment: Discharge Exam General Appearance: no apparent distress Respiratory Exam: prolonged expirations, wheezing Cardiovascular Exam: regular rate/rhythm, normal heart sounds Gastrointestinal/Abdomen Exam: soft, No tenderness, No mass Extremity Exam: normal inspection, normal range of motion Skin Exam: normal color, warm, dry Final Diagnosis/Problem List - Final Discharge Diagnosis/Problem (1) COPD exacerbation Current Visit: Yes Status: Acute Assessment & Plan: home on po prednisone taper and levaquin, patient has neb solution. Code(s): J44.1 - CHRONIC OBSTRUCTIVE PULMONARY DISEASE W (ACUTE) EXACERBATION (2) Hypertensive urgency Current Visit: Yes Status: Acute Assessment & Plan: added aldactone, better control. will increase hydralazine to 50mg tid and will need outpatient f/u Code(s): I16.0 - HYPERTENSIVE URGENCY (3) Hyponatremia Current Visit: Yes Status: Acute Code(s): E87.1 - HYPO-OSMOLALITY AND HYPONATREMIA - Discharge Disposition: Home, Self-Care Condition: Good Prescriptions: New Albuterol/Ipratropium 3ml Neb* [DUONEB 0.5-3 MG/3 ml Neb] 3 ml NEBULIZE Q4H PRN PRN #1 PRN Reason: Wheezing/Chest Congestion Spironolactone 25 mg [Aldactone 25 MG] 50 mg PO DAILY #30 tablet Prednisone 20 mg [Deltasone 20 mg] 20 mg PO UD #18 tablet Hydralazine HCl 50 mg PO TID #90 tablet Levofloxacin [Levofloxacin 500 MG Tablet] 500 mg PO QAM #7 tablet Continue Carbamazepine 200 mg [Tegretol 200 MG] 400 mg PO BID Tizanidine HCl 4 mg [Zanaflex 4 MG] 4 mg PO Q8H PRN PRN Reason: Pain Pregabalin [Lyrica] 225 mg PO BID Duloxetine HCl 30 mg [Cymbalta 30 MG Capsule] 60 mg PO BID ARIPiprazole [Aripiprazole] 5 mg PO DAILY Trazodone HCl 50 mg [Desyrel 50 mg] 200 mg PO HS Albuterol Sulfate [Proair Hfa] 2 puffs IH Q6H PRN PRN PRN Reason: Shortness Of Breath Carvedilol 12.5 mg [Coreg 12.5 mg] 25 mg PO BID ALPRAZolam 0.25 MG [xanAX 0.25 MG] 0.25 mg PO TID Budesonide/Formoterol Fumarate [Budesonide-Formoterol 160-4.5] 2 puff IH BID Levothyroxine Sodium [Euthyrox] 1 tab PO DAILY Discontinued HydrALAzine HCL 25 MG TAB [Apresoline 25 MG TABLET] 25 mg PO TID Follow up with: KADEN SCHAFER [employer] [Primary Care Provider] -
[2021-07-05] MEDS: NICOTINE PATCH 7MG TD SCH (09:04)
[2021-07-05] MEDS: Zithromax 500 MG/ 250 ML NaCl Premix 500 MG/250 ML IVPB IV SCH (09:08)
[2021-07-05 12:05] VITALS: BP 173/85; PULSE 68; O2SAT 91
[2021-07-05 19:14] LABS: ANION GAP 10.9 MEQ/L (5-15); BLOOD UREA NITROGEN 17 mg/dL (7-17); CHLORIDE 89 mmol/L (98-107); Carbon Dioxide 32 mmol/L (22-30); Creatinine 1 0.56 mg/dL (0.52-1.04); EST GLOMERULAR FILTRATION RATE > 60.0 ML/MIN; Glucose 115 mg/dL (74-106); SODIUM 127 mmol/L (137-145)
[2021-07-05 19:22] LABS: Potassium 4.4 mmol/L (3.5-5.1)
[2021-07-07 15:00] LABS: Osmolality, Urine 682 mOsmol/kg (.)
== END 2021-07-05 12:42 | disposition home or self-care (01) ==
LOC: ED 20:44 → MED SURG 07-04 00:42
PROVIDERS: ADMIT Family Medicine; ATTEND Family Medicine
DX: J44.1 Chronic obstructive pulmonary disease with (acute) exacerbation (principal); I16.0 Hypertensive urgency; E87.1 Hypo-osmolality and hyponatremia; I11.0 Hypertensive heart disease with heart failure; I50.9 Heart failure, unspecified; Z72.0 Tobacco use; Z79.899 Other long term (current) drug therapy; Z20.828 Contact with and (suspected) exposure to other viral communicable diseases; Z99.81 Dependence on supplemental oxygen
CPT/HCPCS: 0241U; 36000; 36415; 71046; 74175; 80048; 80053; 81015; 82088; 82533; 82805; 83735; 83835; 83880; 83930; 83935; 84244; 84300; 84439; 84443; 84484; 85025; 85610; 93005; 93041; 94640; 94762; 96374; 96376; 99285; 93268; J0456; J0696; J2405; J2930; J7609; A9270-GY; G0378

== ENCOUNTER 2021-08-27 20:38 | Observation (INO) | payer OTHER ==
[2021-08-27] MEDS ORDERED: solu-MEDROL 125 MG, Sterile H2O 10 ml 2 ML IV ONE ×2 (21:14)
[2021-08-27] MEDS ORDERED: DUONEB 0.5-3 MG/3 ml Neb IH ONE ×2 (21:14→21:30)
[2021-08-27 21:26] LABS: Absolute Neutrophil Ct (ANC) 11.77 x10^3/uL (1.4-6.9); Basophil (Absolute #) 0.09 x10^3/uL (0-0.4); Eosinophil % 1.5 % (0.00-5.0); Eosinophil (Absolute #) 0.22 x10^3/uL (0-0.5); Hematocrit 37.1 % (35-47); Hemoglobin 12.3 g/dL (12.0-16.0); Lymphocyte (Absolute #) 1.39 x10^3/uL (1.0-4.6); Lymphocytes % 9.6 % (24.0-44.0); Mean Corpuscular Hemoglobin 29.5 pg (26-32); Mean Corpuscular Hgb Concent. 33.2 g/dL (32-36); Mean Platelet Volume 8.9 fL (7.5-11.0); Monocyte (Absolute #) 1.02 x10^3/uL (0.0-1.3); Neutrophil % 80.9 % (36.0-66.0); Platelet Count 246 x10^3/uL (150-450); Red Blood Count 4.17 x10^6/uL (4.1-5.4); Red Cell Distribution Width 14.4 % (11.5-14.0); White Blood Count 14.6 x10^3/uL (4.0-10.5)
[2021-08-27] MEDS ORDERED: solu-MEDROL ONE (21:28)
[2021-08-27] MEDS ORDERED: Sterile H2O 10 ml IJ ONE (21:28)
[2021-08-27 21:40] LABS: ALBUMIN 3.8 g/dL (3.5-5.0); ALKALINE PHOSPHATASE 130 U/L (38-126); BLOOD UREA NITROGEN 7 mg/dL (7-17); CHLORIDE 85 mmol/L (98-107); Calcium 8.6 mg/dL (8.4-10.2); Carbon Dioxide 36 mmol/L (22-30); Creatinine 1 0.45 mg/dL (0.52-1.04); EST GLOMERULAR FILTRATION RATE > 60.0 ML/MIN; Glucose 108 mg/dL (74-106); SGOT/AST 22 U/L (14-36); SGPT/ALT 13 U/L (0-35); SODIUM 126 mmol/L (137-145); Total Protein 7.3 g/dL (6.3-8.2)
[2021-08-27] MEDS ORDERED: PROVENTIL 2.5 MG/3 ML NEB IH ONE ×2 (21:51→22:17)
--- NOTE | 2021-08-27 21:59 | ERPHSYRPT ---
- History of Present Illness Time Seen by Provider: 08/27/21 20:55 Source: patient Exam Limitations: no limitations Patient Subjective Stated Complaint: pt states she has been sob for a few days, also states she has burning on urination that began yesterday. pt states she has no pain at this time. pt has cough that is worse than usual x3 days. Triage Nursing Assessment: pt is alert and oriented, appears SOB, sats are 95% at rest on 3l of O2. pt is unable to lay flat Physician History: Patient is a 61-year-old female with a history of COPD presents to our ED with a 3-day history of progressive shortness of breath and cough. Patient states the cough is productive of greenish sputum. Patient states "I does not feel well". "I feel weak". No focal or lateralizing symptoms. Patient has been experiencing dysuria for 1 day. No obvious blood in urine. No back pain. No fever. Patient normally uses oxygen via nasal cannula at home. Patient is usually on 3 L. In spite of the 3 L patient states she feels shortness of breath. No chest pain. No nausea vomiting or diaphoresis. No abdominal pain. No diarrhea. No rash. Symptoms are progressive. Symptoms are moderate in intensity. Activity worsens symptoms. Patient voices no other complaints or concerns at this time. Portions of this note were created with voice recognition technology. There may be grammatical, spelling, punctuation or sound alike errors Timing/Duration: day(s) (3 days) Activities at Onset: activity Severity of Dyspnea-Max: moderate Severity of Dyspnea-Current: mild Possible Cause: occasional episodes Modifying Factors: Improves With: activity, albuterol inhaler, albuterol nebulizer (Albuterol nebulizer treatments improved symptoms). Worsens With: deep breath (No pleuritic chest pain) Associated Symptoms: cough, No chest pain/discomfort, No fever, No loss of appetite, No ankle swelling, No calf pain, No lightheadedness, No muscle spasms feet Allergies/Adverse Reactions: No Known Drug Allergies Allergy (Verified 07/03/21 21:00) Home Medications: ARIPiprazole [Aripiprazole] 5 mg PO DAILY 01/11/20 [History] Carbamazepine 200 mg [Tegretol 200 MG] 400 mg PO BID 01/11/20 [History] Duloxetine HCl 30 mg [Cymbalta 30 MG Capsule] 60 mg PO BID 01/11/20 [History] Pregabalin [Lyrica] 225 mg PO BID 01/11/20 [History] Tizanidine HCl 4 mg [Zanaflex 4 MG] 4 mg PO Q8H PRN 01/11/20 [History] Albuterol Sulfate [Proair Hfa] 2 puffs IH Q6H PRN PRN 06/30/20 [History] Trazodone HCl 50 mg [Desyrel 50 mg] 200 mg PO HS 06/30/20 [History] ALPRAZolam 0.25 MG [xanAX 0.25 MG] 0.25 mg PO TID 03/06/21 [History] Budesonide/Formoterol Fumarate [Budesonide-Formoterol 160-4.5] 2 puff IH BID 03/06/21 [History] Carvedilol 12.5 mg [Coreg 12.5 mg] 25 mg PO BID 03/06/21 [History] Levothyroxine Sodium [Euthyrox] 1 tab PO DAILY 07/04/21 [History] Hx Tetanus, Diphtheria Vaccination/Date Given: No Hx Influenza Vaccination/Date Given: No Hx Pneumococcal Vaccination/Date Given: No Travel Risk - International Travel Have you traveled outside of the country in past 3 weeks: No - Coronavirus Screening Are you exhibiting any of the following symptoms?: No Symptoms: Cough: New Onset Close contact with a COVID-19 positive Pt in past 14-21 Days: No - Vaccine Status Have you recieved a Covid-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: Yes Community Facilitator: avox - Vaccination Dates Date of 2cond Vaccination (if applicable): unknown - Review of Systems Constitutional: No Symptoms, No Fever, No Chills Eyes: No Symptoms Ears, Nose, & Throat: No Symptoms Respiratory: No Symptoms, No Cough, No Dyspnea Cardiac: No Symptoms, No Chest Pain, No Edema, No Syncope Abdominal/Gastrointestinal: No Symptoms, No Abdominal Pain, No Nausea, No Vomiting, No Diarrhea Genitourinary Symptoms: No Symptoms, No Dysuria Musculoskeletal: No Symptoms, No Back Pain, No Neck Pain Skin: No Symptoms, No Rash Neurological: No Symptoms, No Dizziness, No Focal Weakness, No Sensory Changes Psychological: No Symptoms Endocrine: No Symptoms Hematologic/Lymphatic: No Symptoms Immunological/Allergic: No Symptoms All Other Systems: Reviewed and Negative - Past Medical History Pertinent Past Medical History: Yes Neurological History: Peripheral Neuropathy ENT History: No Pertinent History Cardiac History: Congestive Heart Failure, Hypertension Respiratory History: Bronchitis, CHF, COPD, Pneumonia Endocrine Medical History: No Pertinent History Musculoskeletal History: No Pertinent History GI Medical History: No Pertinent History History: No Pertinent History Psycho-Social History: No Pertinent History Female Reproductive Disorders: No Pertinent History Other Medical History: pt unable to participate in admission documentation due to severe confusion, history taken off meds list - Past Surgical History Past Surgical History: Yes Neuro Surgical History: No Pertinent History Cardiac: No Pertinent History Respiratory: No Pertinent History Gastrointestinal: Appendectomy Genitourinary: No Pertinent History Musculoskeletal: No Pertinent History Female Surgical History: No Pertinent History Other Surgical History: elbow surgery. skin cancer removed - Social History Smoking Status: Former smoker How long have you smoked: 20 yrs Exposure to second hand smoke: No Drug Use: none Patient Lives Alone: Yes - Nursing Vital Signs Nursing Vital Signs: Initial Vital Signs Temperature 97.7 F 08/27/21 20:45 Respiratory Rate 18 08/27/21 20:45 O2 Sat by Pulse Oximetry 95 08/27/21 20:45 Pain Scale Pain Intensity 0 - Physical Exam General Appearance: no apparent distress, alert Eye Exam: PERRL/EOMI, eyes nml inspection Ears, Nose, Throat Exam: hearing grossly normal, normal ENT inspection, normal pharynx (Dry oral mucous membranes) Neck Exam: normal inspection, supple Cardiovascular/Chest Exam: normal heart sounds, regular rate/rhythm Abdominal/Gastrointestinal Exam: soft, No tenderness, No distention, No mass Extremity Exam: non-tender, normal range of motion, normal inspection, no calf tenderness, no pedal edema Peripheral Pulses Exam: dorsalis-pedis (R): 2+, dorsalis-pedis (L): 2+ Neurologic Exam: alert, oriented x 3, cooperative, imaging scheduler II-XII nml as tested, sensation nml, No motor deficits Skin Exam: normal color, warm, No dry SpO2 Interpretation: normal SpO2: 95 O2 Delivery: Room Air - Course Nursing assessment & vital signs reviewed: Yes EKG Interpreted by Me: RATE (72), Sinus Rhythm, NORMAL AXIS, NORMAL INTERVALS - Radiology Exams Chest X-ray Interpretation: Interpreted by me (Bibasilar atelectasis/scarring. Normal heart. Osteopenia intact bony thorax) Ordered Tests: Active Orders 24 hr Category Date Time Status Explosive Ordnance Handler STAT Care 08/27/21 21:13 Active EKG-ER Only STAT Care 08/27/21 21:12 Active IV Insertion STAT Care 08/27/21 21:12 Active Pulse Oximetry (ED) STAT Care 08/27/21 21:12 Active CHEST 1 VIEW (PORTABLE) Stat Exams 08/27/21 21:11 Taken BLOOD CULTURE Stat Lab 08/27/21 21:49 Received CBC W DIFF Stat Lab 08/27/21 21:22 Completed CMP Stat Lab 08/27/21 21:22 Completed CULTURE,URINE Stat Lab 08/27/21 21:22 Received NT PRO BNP Stat Lab 08/27/21 21:59 Completed TROPONIN Q3H Lab 08/27/21 21:22 Completed TROPONIN Q3H Lab 08/28/21 00:15 Ordered TROPONIN Q3H Lab 08/28/21 03:15 Ordered TROPONIN Q3H Lab 08/28/21 06:15 Ordered TROPONIN Q3H Lab 08/28/21 09:15 Ordered UA W/RFX CULTURE Stat Lab 08/27/21 21:22 Completed Respiratory Therapy Assessment DAILY RT 08/27/21 21:36 Active Transfer Order Routine Transfer 08/27/21 Ordered Medication Summary Generic Name Dose Route Start Last Admin Trade Name Freq PRN Reason Stop Dose Admin Azithromycin 500 mg in 250 mls @ 250 mls/hr 08/27/21 22:12 Zithromax 500 Mg/ 250 Ml Nacl Premix IV 08/27/21 23:11 STAT STA Sodium Chloride 1,000 mls @ 100 mls/hr 08/27/21 22:15 Sodium Chloride 0.9% 1000 Ml IV 09/26/21 22:14 .Q10H KIKO Discontinued Medications Generic Name Dose Route Start Last Admin Trade Name Freq PRN Reason Stop Dose Admin Albuterol Sulfate 2.5 mg 08/27/21 21:51 08/27/21 22:18 Albuterol Sulfate 2.5 Mg/3 Ml Neb IH 08/27/21 21:52 2.5 mg STAT ONE Administration Albuterol Sulfate Confirm 08/27/21 22:17 Albuterol Sulfate 2.5 Mg/3 Ml Neb Administered 08/27/21 22:18 Dose 2.5 mg IH .STK-MED ONE Albuterol/Ipratropium 3 ml 08/27/21 21:14 08/27/21 21:37 Ipratropium/Albuterol Sulfate 3 Ml Ampul.Neb IH 08/27/21 21:15 3 ml STAT ONE Administration Albuterol/Ipratropium Confirm 08/27/21 21:30 Ipratropium/Albuterol Sulfate 3 Ml Ampul.Neb Administered 08/27/21 21:31 Dose 3 ml IH .STK-MED ONE Methylprednisolone Sodium 0 mg 08/27/21 21:14 08/27/21 21:29 Succinate 125 mg/ Sterile IV 08/27/21 21:15 125 mg Water 2 ml STAT ONE Administration Ceftriaxone Sodium/Dextrose 2 g in 50 mls @ 100 mls/hr 08/27/21 22:12 08/27/21 22:47 Rocephin 2 Gm-D5w 50ml Bag IV 08/27/21 22:41 100 ml/hr STAT STA 100 mls/hr Administration Ceftriaxone Sodium/Dextrose Confirm 08/27/21 22:43 Rocephin 2 Gm-D5w 50ml Bag Administered 08/27/21 22:44 Dose 2 g in 50 mls @ ud IV .STK-MED ONE Methylprednisolone Sodium Succinate Confirm 08/27/21 21:28 Methylprednis Sod Succ 125 Mg/2 Ml Vial Administered 08/27/21 21:29 Dose 125 mg .ROUTE .STK-MED ONE Sterile Water Confirm 08/27/21 21:28 Water For Injection,Sterile 10 Ml Vial Administered 08/27/21 21:29 Dose 10 ml IJ .STK-MED ONE Lab/Rad Data: Laboratory Result Diagrams 08/27/21 21:22 08/27/21 21:22 Laboratory Results 08/27/21 08/27/21 08/27/21 Range/Units 21:59 21:49 21:22 WBC (4.0-10.5) x10^3/uL RBC (4.1-5.4) x10^6/uL Hgb (12.0-16.0) g/dL Hct (35-47) % MCV (78-100) fL MCH (26-32) pg MCHC (32-36) g/dL RDW (11.5-14.0) % Plt Count (150-450) x10^3/uL MPV (7.5-11.0) fL Gran % (36.0-66.0) % Immature Gran % (Auto) (0.00-0.4) % Nucleat RBC Rel Count (0.00-0.1) % Eos # (Auto) (0-0.5) x10^3/uL Immature Gran # (Auto) (0.00-0.03) x10^3u/L Absolute Lymphs (auto) (1.0-4.6) x10^3/uL Absolute Monos (auto) (0.0-1.3) x10^3/uL Absolute Nucleated RBC (0.00-0.01) x10^3u/L Lymphocytes % (24.0-44.0) % Monocytes % (0.0-12.0) % Eosinophils % (0.00-5.0) % Basophils % (0.0-0.4) % Absolute Granulocytes (1.4-6.9) x10^3/uL Basophils # (0-0.4) x10^3/uL Sodium (137-145) mmol/L Potassium (3.5-5.1) mmol/L Chloride (98-107) mmol/L Carbon Dioxide (22-30) mmol/L Anion Gap (5-15) MEQ/L BUN (7-17) mg/dL Creatinine (0.52-1.04) mg/dL Estimated GFR ML/MIN Glucose (74-106) mg/dL Calcium (8.4-10.2) mg/dL Total Bilirubin (0.2-1.3) mg/dL AST (14-36) U/L ALT (0-35) U/L Alkaline Phosphatase (38-126) U/L Troponin I (0.000-0.034) ng/mL NT-Pro-B Natriuret Pep 218 (0-900) pg/mL Serum Total Protein (6.3-8.2) g/dL Albumin (3.5-5.0) g/dL Urinalys Dipstick Clnc MAIN LAB Urine Color YELLOW (YELLOW) Urine Appearance CLEAR (CLEAR) Urine pH 7.0 (5-6) Ur Specific [place] 1.025 (1.005-1.025) POC Urine Protein Conf 30 (Negative) Urine Ketones NEGATIVE (NEGATIVE) Urine Nitrite POSITIVE (NEGATIVE) Urine Bilirubin NEGATIVE (NEGATIVE) Urine Urobilinogen 0.2 (0-1) mg/dL Urine Leukocytes SMALL (NEGATIVE) Urine WBC (Auto) 51-100 (0-5) /HPF Urine RBC (Auto) 3-5 (0-2) /HPF U Epithel Cells (Auto) RARE (FEW) /HPF Urine Bacteria (Auto) FEW (NEGATIVE) /HPF Urine RBC TRACE-LYSED (0-5) [place]/ul Unidentified Crystals 2-5 (NEGATIVE) /HPF Urine Mucus (Auto) SLIGHT (NEGATIVE) /HPF Ur Culture Indicated? YES Urine Glucose NEGATIVE (NEGATIVE) mg/dL Influenza Type A Ag NEGATIVE (NEGATIVE) Influenza Type B Ag NEGATIVE (NEGATIVE) RSV (PCR) NEGATIVE (Negative) SARS-CoV-2 (PCR) NEGATIVE (NEGATIVE) 08/27/21 08/27/21 08/27/21 Range/Units 21:22 21:22 21:22 WBC 14.6 H (4.0-10.5) x10^3/uL RBC 4.17 (4.1-5.4) x10^6/uL Hgb 12.3 (12.0-16.0) g/dL Hct 37.1 (35-47) % MCV 89.0 (78-100) fL MCH 29.5 (26-32) pg MCHC 33.2 (32-36) g/dL RDW 14.4 H (11.5-14.0) % Plt Count 246 (150-450) x10^3/uL MPV 8.9 (7.5-11.0) fL Gran % 80.9 H (36.0-66.0) % Immature Gran % (Auto) 0.4 (0.00-0.4) % Nucleat RBC Rel Count 0.0 (0.00-0.1) % Eos # (Auto) 0.22 (0-0.5) x10^3/uL Immature Gran # (Auto) 0.06 H (0.00-0.03) x10^3u/L Absolute Lymphs (auto) 1.39 (1.0-4.6) x10^3/uL Absolute Monos (auto) 1.02 (0.0-1.3) x10^3/uL Absolute Nucleated RBC 0.00 (0.00-0.01) x10^3u/L Lymphocytes % 9.6 L (24.0-44.0) % Monocytes % 7.0 (0.0-12.0) % Eosinophils % 1.5 (0.00-5.0) % Basophils % 0.6 (0.0-0.4) % Absolute Granulocytes 11.77 H (1.4-6.9) x10^3/uL Basophils # 0.09 (0-0.4) x10^3/uL Sodium 126 L (137-145) mmol/L Potassium 4.0 (3.5-5.1) mmol/L Chloride 85 L (98-107) mmol/L Carbon Dioxide 36 H (22-30) mmol/L Anion Gap 9.0 (5-15) MEQ/L BUN 7 (7-17) mg/dL Creatinine 0.45 L (0.52-1.04) mg/dL Estimated GFR > 60.0 ML/MIN Glucose 108 H (74-106) mg/dL Calcium 8.6 (8.4-10.2) mg/dL Total Bilirubin 0.40 (0.2-1.3) mg/dL AST 22 (14-36) U/L ALT 13 (0-35) U/L Alkaline Phosphatase 130 H (38-126) U/L Troponin I < 0.012 (0.000-0.034) ng/mL NT-Pro-B Natriuret Pep (0-900) pg/mL Serum Total Protein 7.3 (6.3-8.2) g/dL Albumin 3.8 (3.5-5.0) g/dL Urinalys Dipstick Clnc Urine Color (YELLOW) Urine Appearance (CLEAR) Urine pH (5-6) Ur Specific [place] (1.005-1.025) POC Urine Protein Conf (Negative) Urine Ketones (NEGATIVE) Urine Nitrite (NEGATIVE) Urine Bilirubin (NEGATIVE) Urine Urobilinogen (0-1) mg/dL Urine Leukocytes (NEGATIVE) Urine WBC (Auto) (0-5) /HPF Urine RBC (Auto) (0-2) /HPF U Epithel Cells (Auto) (FEW) /HPF Urine Bacteria (Auto) (NEGATIVE) /HPF Urine RBC (0-5) [place]/ul Unidentified Crystals (NEGATIVE) /HPF Urine Mucus (Auto) (NEGATIVE) /HPF Ur Culture Indicated? Urine Glucose (NEGATIVE) mg/dL Influenza Type A Ag (NEGATIVE) Influenza Type B Ag (NEGATIVE) RSV (PCR) (Negative) SARS-CoV-2 (PCR) (NEGATIVE) - Progress Progress: improved Air Movement: good Progress Note: Patient reassessed. She feels as though she is breathing easier after nebulizer treatments. Patient receiving Solu-Medrol as well as ceftriaxone and azithromycin. Patient also has a UTI which will be covered by the Rocephin. Hyponatremia observed on work-up. Patient received IV fluids. Patient states she still feels weak. Case discussed with Dr. Mendoza who accepts admission to observation. Patient agrees to admission at [facility] for further evaluation and treatment. Portions of this note were created with voice recognition technology. There may be grammatical, spelling, punctuation or sound alike errors 08/27/21 22:59 Blood Culture(s) Obtained: Yes Antibiotics given: Yes Discussed with : Derek Will see patient in: hospital (observation) Counseled pt/family regarding: lab results, diagnosis, rad results - Departure Departure Disposition: Observation Clinical Impression: Generalized weakness, Urinary tract infection, COPD with exacerbation, Hyponatremia, Leukocytosis Condition: Stable Critical Care Time: No Referrals: KADEN SCHAFER HAND TIRE TRIMMER [Primary Care Provider] - Follow up/PCP as directed Instructions: Chronic Obstructive Pulmonary Disease
[2021-08-27 22:06] LABS: Appearance CLEAR (CLEAR); Bilirubin NEGATIVE (NEGATIVE); Dipstick done @ ? MAIN LAB; Glucose NEGATIVE (NEGATIVE); Ketones NEGATIVE (NEGATIVE); Nitrite POSITIVE (NEGATIVE); Protein,Urine Dip 30 (Negative); RBC TRACE-LYSED Ery/ul (0-5); Specific Gravity 1.025 (1.005-1.025); Urobilinogen 0.2 mg/dL (0-1)
[2021-08-27 22:07] LABS: Bacteria FEW /HPF (NEGATIVE); Epithelial Cells RARE /HPF (FEW); Mucus SLIGHT /HPF (NEGATIVE); WBC 51-100 /HPF (0-5)
[2021-08-27 22:08] LABS: Urine Cultured Indicated? YES
[2021-08-27] MEDS ORDERED: ROCEPHIN 2 Gm-D5w 50ML BAG** 2 G/50 ML IVPB IV STA (22:12)
[2021-08-27] MEDS ORDERED: Zithromax 500 MG/ 250 ML NaCl Premix 500 MG/250 ML IVPB IV STA (22:12)
[2021-08-27] MEDS ORDERED: Sodium Chloride 0.9% 1000 ML 1,000 ML IV SCH ×2 (22:15→23:00)
[2021-08-27 22:30] LABS: INFLUENZA A NEGATIVE (NEGATIVE); INFLUENZA B NEGATIVE (NEGATIVE); RESPIRATORY SYNCTIAL VIRUS NEGATIVE (Negative); SARS-CoV-2 Xpert Express NEGATIVE (NEGATIVE)
[2021-08-27] MEDS ORDERED: ROCEPHIN 2 Gm-D5w 50ML BAG** 2 G/50 ML IVPB IV ONE (22:43)
[2021-08-28] MEDS: solu-MEDROL 60 MG, Sterile H2O 10 ml 2 ML IV SCH ×10 (00:58→23:03)
[2021-08-28] MEDS: PROVENTIL 2.5 MG/3 ML NEB IH SCH ×2 (01:40→04:55)
[2021-08-28] MEDS: Sodium Chloride 0.9% 1000 ML 1,000 ML IV SCH ×3 (03:02→22:56)
[2021-08-28] MEDS ORDERED: PROVENTIL 2.5 MG/3 ML NEB IH ONE (04:50)
[2021-08-28] MEDS: Advair Hfa 230/21 Mcg COMMON CANISTER IH SCH ×2 (05:08→19:38)
[2021-08-28] MEDS: DUONEB 0.5-3 MG/3 ml Neb IH SCH ×5 (05:10→23:20)
[2021-08-28 06:12] LABS: Hematocrit 37.5 % (35-47); Hemoglobin 12.4 g/dL (12.0-16.0); Mean Cell Volume 88.9 fL (78-100); Mean Corpuscular Hemoglobin 29.4 pg (26-32); Mean Corpuscular Hgb Concent. 33.1 g/dL (32-36); Mean Platelet Volume 8.9 fL (7.5-11.0); Platelet Count 246 x10^3/uL (150-450); Red Blood Count 4.22 x10^6/uL (4.1-5.4); Red Cell Distribution Width 14.3 % (11.5-14.0); White Blood Count 13.2 x10^3/uL (4.0-10.5)
[2021-08-28] MEDS ORDERED: solu-MEDROL ONE ×2 (06:32→22:01)
[2021-08-28 06:34] LABS: ALBUMIN 3.8 g/dL (3.5-5.0); ALKALINE PHOSPHATASE 114 U/L (38-126); ANION GAP 13.2 MEQ/L (5-15); BLOOD UREA NITROGEN 5 mg/dL (7-17); CHLORIDE 89 mmol/L (98-107); Calcium 8.5 mg/dL (8.4-10.2); Carbon Dioxide 29 mmol/L (22-30); Creatinine 1 0.35 mg/dL (0.52-1.04); EST GLOMERULAR FILTRATION RATE > 60.0 ML/MIN; Glucose 129 mg/dL (74-106); Potassium 4.2 mmol/L (3.5-5.1); SGOT/AST 21 U/L (14-36); SGPT/ALT 14 U/L (0-35); SODIUM 127 mmol/L (137-145); Total Protein 7.2 g/dL (6.3-8.2)
--- NOTE | 2021-08-28 09:02 | XRAY ---
Indication: Short of breath. Pneumonia. UTI. Comparison: July 03, 2021. Portable chest remains hyperinflated and clear. Heart and mediastinal structures within normal limits. Bony thorax intact again with osteopenia and degenerative changes. No new/acute findings.
[2021-08-28] MEDS ORDERED: Zithromax 500 MG/ 250 ML NaCl Premix 500 MG/250 ML IVPB IV SCH ×2 (10:00→22:00)
[2021-08-28] MEDS: ROCEPHIN 1 Gm-D5w 50 ml Bag** 1 G/50 ML IVPB IV SCH (10:14)
[2021-08-28] MEDS: Cymbalta 30 MG Capsule PO SCH (12:32)
[2021-08-28] MEDS: Klor Con PO SCH ×2 (12:32→22:59)
[2021-08-28] MEDS: LYRICA 75 MG CAP PO SCH ×2 (12:33→22:59)
[2021-08-28] MEDS: Abilify 10 MG PO SCH (12:33)
[2021-08-28] MEDS: Lasix 40 MG PO SCH ×2 (12:34→16:53)
[2021-08-28] MEDS: Aldactone 25 MG PO SCH ×2 (12:34→22:59)
[2021-08-28] MEDS: SYNTHROID 150 MCG PO SCH (12:41)
[2021-08-28] MEDS: xanAX 0.25 MG PO SCH ×2 (12:41→22:59)
[2021-08-28] MEDS: COREG 12.5 MG PO SCH ×2 (12:41→22:59)
--- NOTE | 2021-08-28 17:39 | PCM.HP ---
History of Present Illness - Chief Complaint Chief Complaint: generalized weakness and shortness of breath for 2 days History of Present Illness: is a 61 year old female.with a history of COPD presents to our ED with a 3-day history of progressive shortness of breath and cough. Patient states the cough is productive of greenish sputum. Patient states "I does not feel well". "I feel weak". No focal or lateralizing symptoms. Patient has been experiencing dysuria for 1 day. No obvious blood in urine. No back pain. No fever. Patient normally uses oxygen via nasal cannula at home. Patient is usually on 3 L. In spite of the 3 L patient states she feels shortness of megan ath. No chest pain. No nausea vomiting or diaphoresis. No abdominal pain. No diarrhea. No rash. Symptoms are progressive. Symptoms are moderate in intensity. Activity worsens symptoms. Patient voices no other complaints or concerns at this time. Portions of this note were created with voice recognition technology. There may be grammatical, spelling, punctuation or sound alike errors Timing/Duration: day(s) (3 days) Activities at Onset: activity Severity of Dyspnea-Max: moderate Severity of Dyspnea-Current: mild Possible Cause: occasional episodes Modifying Factors: Improves With: activity, albuterol inhaler, albuterol nebulizer (Albuterol nebulizer treatments improved symptoms). Worsens With: deep breath (No pleuritic chest pain) Associated Symptoms: cough, No chest pain/discomfort, No fever, No loss of appetite, No ankle swelling, No calf pain, No lightheadedness, No muscle spasms feet - Review of Systems Constitutional: Lethargy, Weakness, No Fever, No Chills Eyes: No Symptoms Ears, Nose, & Throat: No Symptoms Respiratory: Cough, Orthopnea, Short Of Breath, Wheezing Cardiac: No Chest Pain, No Edema, No Syncope Abdominal/Gastrointestinal: No Abdominal Pain, No Nausea, No Vomiting, No Diarrhea Genitourinary Symptoms: No Dysuria Musculoskeletal: No Back Pain, No Neck Pain Skin: No Rash Neurological: No Dizziness, No Focal Weakness, No Sensory Changes Psychological: No Symptoms Endocrine: No Symptoms Hematologic/Lymphatic: No Symptoms Immunological/Allergic: No Symptoms Medications & Allergies Home Medications: Home Medication List ARIPiprazole [Aripiprazole] 5 mg PO DAILY 01/11/20 [History Confirmed 08/28/21] Carbamazepine 200 mg [Tegretol 200 MG] 400 mg PO BID 01/11/20 [History Confirmed 08/28/21] Duloxetine HCl 30 mg [Cymbalta 30 MG Capsule] 120 mg PO DAILY 01/11/20 [History Confirmed 08/28/21] Pregabalin [Lyrica] 225 mg PO BID 01/11/20 [History Confirmed 08/28/21] Tizanidine HCl 4 mg [Zanaflex 4 MG] 4 mg PO HS 01/11/20 [History Confirmed 08/28/21] Albuterol Sulfate [Proair Hfa] 2 puffs IH Q6H PRN PRN 06/30/20 [History Confirmed 08/28/21] Trazodone HCl 50 mg [Desyrel 50 mg] 400 mg PO HS 06/30/20 [History Confirmed 08/28/21] ALPRAZolam 0.25 MG [xanAX 0.25 MG] 0.25 mg PO TID 03/06/21 [History Confirmed 08/28/21] Budesonide/Formoterol Fumarate [Budesonide-Formoterol 160-4.5] 2 puff IH BID 03/06/21 [History Confirmed 08/28/21] Carvedilol 12.5 mg [Coreg 12.5 mg] 25 mg PO BID 03/06/21 [History Confirmed 08/28/21] Albuterol/Ipratropium 3ml Neb* [DUONEB 0.5-3 MG/3 ml Neb] 3 ml NEBULIZE Q4H PRN PRN #1 07/03/21 [Rx Confirmed 08/28/21] Levothyroxine Sodium [Euthyrox] 150 tab PO DAILY 07/04/21 [History Confirmed 08/28/21] Carbamazepine 200 mg [Tegretol 200 MG] 200 mg PO DAILY 08/28/21 [History Confirmed 08/28/21] Furosemide 40 mg [Lasix 40 MG] 80 mg PO BID 08/28/21 [History Confirmed 08/28/21] Potassium Chloride 10 meq PO BID 08/28/21 [History Confirmed 08/28/21] Spironolactone 25 mg [Aldactone 25 MG] 50 mg PO BID 08/28/21 [History Confirmed 08/28/21] Allergies/Adverse Reactions: Allergies Allergy/AdvReac Type Severity Reaction Status Date / Time No Known Drug Allergies Allergy Verified 07/03/21 21:00 - Past Medical History Past Medical History: Yes Neurological History: Peripheral Neuropathy ENT History: No Pertinent History Cardiac History: Congestive Heart Failure, Hypertension Respiratory History: Bronchitis, CHF, COPD, Pneumonia Endocrine Medical History: No Pertinent History Musculoskelatal History: No Pertinent History GI Medical History: No Pertinent History History: No Pertinent History Pyscho-Social History: No Pertinent History Reproductive Disorders: No Pertinent History Comment: pt history recalled, pt sleeping and unable to stay awake to complete admission. - Female History Are you now?: No - Past Surgical History Past Surgical History: Yes Neuro Surgical History: No Pertinent History Cardiac History: No Pertinent History Respiratory Surgery: No Pertinent History GI Surgical History: Appendectomy Genitourinary Surgical Hx: No Pertinent History Musculskeletal Surgical Hx: No Pertinent History Female Surgical History: No Pertinent History Other Surgical History: elbow surgery. skin cancer removed - Social History Smoking Status: Former smoker How long have you smoked: 20 yrs Exposure to second hand smoke: No Alcohol: None Drug Use: none - Physical Exam Vital Signs: Vital Signs - 24 hr Temp Pulse Resp BP Pulse Ox 08/28/21 16:00 97.1 F 65 17 176/81 93 L 08/28/21 14:50 65 16 94 L 08/28/21 12:00 96.6 F 72 18 212/102 91 L 08/28/21 10:35 63 20 93 L 08/28/21 07:51 97.7 F 71 17 190/90 93 L 08/28/21 05:10 70 20 92 L 08/28/21 03:56 97.1 F 75 19 174/79 94 L 08/28/21 00:30 97.3 F 74 20 184/83 90 L 08/27/21 23:05 95 08/27/21 22:18 67 18 92 L 08/27/21 22:00 75 22 140/79 93 L 08/27/21 21:37 73 18 95 08/27/21 21:12 95 08/27/21 20:45 97.7 F 18 95 General Appearance: no apparent distress, alert Neurologic Exam: alert, oriented x 3, cooperative, normal mood/affect, nml cerebellar function, nml station & gait, sensation nml, No motor deficits Eye Exam: PERRL/EOMI, eyes nml inspection Ears, Nose, Throat Exam: normal ENT inspection, TMs normal, pharynx normal, moist mucous membranes Neck Exam: normal inspection, non-tender, supple, full range of motion Respiratory Exam: diminished breath sounds, crackles/rales, rhonchi, wheezing, No respiratory distress Cardiovascular Exam: regular rate/rhythm, normal heart sounds, normal peripheral pulses Gastrointestinal/Abdomen Exam: soft, normal bowel sounds, No tenderness, No mass Back Exam: normal inspection, normal range of motion, No CVA tenderness, No vertebral tenderness Extremity Exam: normal inspection, normal range of motion, pelvis stable Skin Exam: normal color, warm, dry, No rash Lymphatic Exam: No adenopathy Results - Labs Lab/Micro Results: Lab Results-Last 24 Hours 08/27/21 08/27/21 08/27/21 Range/Units 21:22 21:22 21:22 WBC 14.6 H (4.0-10.5) x10^3/uL RBC 4.17 (4.1-5.4) x10^6/uL Hgb 12.3 (12.0-16.0) g/dL Hct 37.1 (35-47) % MCV 89.0 (78-100) fL MCH 29.5 (26-32) pg MCHC 33.2 (32-36) g/dL RDW 14.4 H (11.5-14.0) % Plt Count 246 (150-450) x10^3/uL MPV 8.9 (7.5-11.0) fL Gran % 80.9 H (36.0-66.0) % Immature Gran % (Auto) 0.4 (0.00-0.4) % Nucleat RBC Rel Count 0.0 (0.00-0.1) % Eos # (Auto) 0.22 (0-0.5) x10^3/uL Immature Gran # (Auto) 0.06 H (0.00-0.03) x10^3u/L Absolute Lymphs (auto) 1.39 (1.0-4.6) x10^3/uL Absolute Monos (auto) 1.02 (0.0-1.3) x10^3/uL Absolute Nucleated RBC 0.00 (0.00-0.01) x10^3u/L Lymphocytes % 9.6 L (24.0-44.0) % Monocytes % 7.0 (0.0-12.0) % Eosinophils % 1.5 (0.00-5.0) % Basophils % 0.6 (0.0-0.4) % Absolute Granulocytes 11.77 H (1.4-6.9) x10^3/uL Basophils # 0.09 (0-0.4) x10^3/uL Sodium 126 L (137-145) mmol/L Potassium 4.0 (3.5-5.1) mmol/L Chloride 85 L (98-107) mmol/L Carbon Dioxide 36 H (22-30) mmol/L Anion Gap 9.0 (5-15) MEQ/L BUN 7 (7-17) mg/dL Creatinine 0.45 L (0.52-1.04) mg/dL Estimated GFR > 60.0 ML/MIN Glucose 108 H (74-106) mg/dL Calcium 8.6 (8.4-10.2) mg/dL Total Bilirubin 0.40 (0.2-1.3) mg/dL AST 22 (14-36) U/L ALT 13 (0-35) U/L Alkaline Phosphatase 130 H (38-126) U/L Troponin I < 0.012 (0.000-0.034) ng/mL NT-Pro-B Natriuret Pep (0-900) pg/mL Serum Total Protein 7.3 (6.3-8.2) g/dL Albumin 3.8 (3.5-5.0) g/dL Urinalys Dipstick Clnc Urine Color (YELLOW) Urine Appearance (CLEAR) Urine pH (5-6) Ur Specific [place] (1.005-1.025) POC Urine Protein Conf (Negative) Urine Ketones (NEGATIVE) Urine Nitrite (NEGATIVE) Urine Bilirubin (NEGATIVE) Urine Urobilinogen (0-1) mg/dL Urine Leukocytes (NEGATIVE) Urine WBC (Auto) (0-5) /HPF Urine RBC (Auto) (0-2) /HPF U Epithel Cells (Auto) (FEW) /HPF Urine Bacteria (Auto) (NEGATIVE) /HPF Urine RBC (0-5) [place]dom[place]/ul Unidentified Crystals (NEGATIVE) /HPF Urine Mucus (Auto) (NEGATIVE) /HPF Ur Culture Indicated? Urine Glucose (NEGATIVE) mg/dL Influenza Type A Ag (NEGATIVE) Influenza Type B Ag (NEGATIVE) RSV (PCR) (Negative) SARS-CoV-2 (PCR) (NEGATIVE) 08/27/21 08/27/21 08/27/21 Range/Units 21:22 21:49 21:59 WBC (4.0-10.5) x10^3/uL RBC (4.1-5.4) x10^6/uL Hgb (12.0-16.0) g/dL Hct (35-47) % MCV (78-100) fL MCH (26-32) pg MCHC (32-36) g/dL RDW (11.5-14.0) % Plt Count (150-450) x10^3/uL MPV (7.5-11.0) fL Gran % (36.0-66.0) % Immature Gran % (Auto) (0.00-0.4) % Nucleat RBC Rel Count (0.00-0.1) % Eos # (Auto) (0-0.5) x10^3/uL Immature Gran # (Auto) (0.00-0.03) x10^3u/L Absolute Lymphs (auto) (1.0-4.6) x10^3/uL Absolute Monos (auto) (0.0-1.3) x10^3/uL Absolute Nucleated RBC (0.00-0.01) x10^3u/L Lymphocytes % (24.0-44.0) % Monocytes % (0.0-12.0) % Eosinophils % (0.00-5.0) % Basophils % (0.0-0.4) % Absolute Granulocytes (1.4-6.9) x10^3/uL Basophils # (0-0.4) x10^3/uL Sodium (137-145) mmol/L Potassium (3.5-5.1) mmol/L Chloride (98-107) mmol/L Carbon Dioxide (22-30) mmol/L Anion Gap (5-15) MEQ/L BUN (7-17) mg/dL Creatinine (0.52-1.04) mg/dL Estimated GFR ML/MIN Glucose (74-106) mg/dL Calcium (8.4-10.2) mg/dL Total Bilirubin (0.2-1.3) mg/dL AST (14-36) U/L ALT (0-35) U/L Alkaline Phosphatase (38-126) U/L Troponin I (0.000-0.034) ng/mL NT-Pro-B Natriuret Pep 218 (0-900) pg/mL Serum Total Protein (6.3-8.2) g/dL Albumin (3.5-5.0) g/dL Urinalys Dipstick Clnc MAIN LAB Urine Color YELLOW (YELLOW) Urine Appearance CLEAR (CLEAR) Urine pH 7.0 (5-6) Ur Specific [place] 1.025 (1.005-1.025) POC Urine Protein Conf 30 (Negative) Urine Ketones NEGATIVE (NEGATIVE) Urine Nitrite POSITIVE (NEGATIVE) Urine Bilirubin NEGATIVE (NEGATIVE) Urine Urobilinogen 0.2 (0-1) mg/dL Urine Leukocytes SMALL (NEGATIVE) Urine WBC (Auto) 51-100 (0-5) /HPF Urine RBC (Auto) 3-5 (0-2) /HPF U Epithel Cells (Auto) RARE (FEW) /HPF Urine Bacteria (Auto) FEW (NEGATIVE) /HPF Urine RBC TRACE-LYSED (0-5) [place]/ul Unidentified Crystals 2-5 (NEGATIVE) /HPF Urine Mucus (Auto) SLIGHT (NEGATIVE) /HPF Ur Culture Indicated? YES Urine Glucose NEGATIVE (NEGATIVE) mg/dL Influenza Type A Ag NEGATIVE (NEGATIVE) Influenza Type B Ag NEGATIVE (NEGATIVE) RSV (PCR) NEGATIVE (Negative) SARS-CoV-2 (PCR) NEGATIVE (NEGATIVE) 08/28/21 08/28/21 Range/Units 06:00 06:00 WBC 13.2 H (4.0-10.5) x10^3/uL RBC 4.22 (4.1-5.4) x10^6/uL Hgb 12.4 (12.0-16.0) g/dL Hct 37.5 (35-47) % MCV 88.9 (78-100) fL MCH 29.4 (26-32) pg MCHC 33.1 (32-36) g/dL RDW 14.3 H (11.5-14.0) % Plt Count 246 (150-450) x10^3/uL MPV 8.9 (7.5-11.0) fL Gran % (36.0-66.0) % Immature Gran % (Auto) (0.00-0.4) % Nucleat RBC Rel Count (0.00-0.1) % Eos # (Auto) (0-0.5) x10^3/uL Immature Gran # (Auto) (0.00-0.03) x10^3u/L Absolute Lymphs (auto) (1.0-4.6) x10^3/uL Absolute Monos (auto) (0.0-1.3) x10^3/uL Absolute Nucleated RBC (0.00-0.01) x10^3u/L Lymphocytes % (24.0-44.0) % Monocytes % (0.0-12.0) % Eosinophils % (0.00-5.0) % Basophils % (0.0-0.4) % Absolute Granulocytes (1.4-6.9) x10^3/uL Basophils # (0-0.4) x10^3/uL Sodium 127 L (137-145) mmol/L Potassium 4.2 (3.5-5.1) mmol/L Chloride 89 L (98-107) mmol/L Carbon Dioxide 29 (22-30) mmol/L Anion Gap 13.2 (5-15) MEQ/L BUN 5 L (7-17) mg/dL Creatinine 0.35 L (0.52-1.04) mg/dL Estimated GFR > 60.0 ML/MIN Glucose 129 H (74-106) mg/dL Calcium 8.5 (8.4-10.2) mg/dL Total Bilirubin 0.50 (0.2-1.3) mg/dL AST 21 (14-36) U/L ALT 14 (0-35) U/L Alkaline Phosphatase 114 (38-126) U/L Troponin I (0.000-0.034) ng/mL NT-Pro-B Natriuret Pep (0-900) pg/mL Serum Total Protein 7.2 (6.3-8.2) g/dL Albumin 3.8 (3.5-5.0) g/dL Urinalys Dipstick Clnc Urine Color (YELLOW) Urine Appearance (CLEAR) Urine pH (5-6) Ur Specific [place] (1.005-1.025) POC Urine Protein Conf (Negative) Urine Ketones (NEGATIVE) Urine Nitrite (NEGATIVE) Urine Bilirubin (NEGATIVE) Urine Urobilinogen (0-1) mg/dL Urine Leukocytes (NEGATIVE) Urine WBC (Auto) (0-5) /HPF Urine RBC (Auto) (0-2) /HPF U Epithel Cells (Auto) (FEW) /HPF Urine Bacteria (Auto) (NEGATIVE) /HPF Urine RBC (0-5) [place]/ul Unidentified Crystals (NEGATIVE) /HPF Urine Mucus (Auto) (NEGATIVE) /HPF Ur Culture Indicated? Urine Glucose (NEGATIVE) mg/dL Influenza Type A Ag (NEGATIVE) Influenza Type B Ag (NEGATIVE) RSV (PCR) (Negative) SARS-CoV-2 (PCR) (NEGATIVE) Microbiology 08/27/21 21:22 Urine Culture - Preliminary Urine, Void GRAM NEGATIVE ID AND SENSITIVITY PENDING - Radiology Impressions Radiology Exams & Impressions: Radiology Procedures Category Date Time Status CHEST 1 VIEW (PORTABLE) Stat Exams 08/27/21 21:11 Completed - Other Procedures and Tests Respiratory Therapy 08/27/21 21:36 Respiratory Therapy Assessment DAILY 08/28/21 01:41 Oxygen Nasal Cannula 3 lpm Assessment/Plan (1) COPD with exacerbation Current Visit: Yes Status: Acute Assessment & Plan: Chief Complaint Diagnosis COPD exacerbation,UTI,generalized weakness Allergies Allergy/AdvReac Type Severity Reaction Status Date / Time No Known Drug Allergies Allergy Verified 07/03/21 21:00 Vital Signs (Last 24 hours) Temp Pulse Resp BP Pulse Ox 08/28/21 16:00 97.1 F 65 17 176/81 93 L 08/28/21 14:50 65 16 94 L 08/28/21 12:00 96.6 F 72 18 212/102 91 L 08/28/21 10:35 63 20 93 L 08/28/21 07:51 97.7 F 71 17 190/90 93 L 08/28/21 05:10 70 20 92 L 08/28/21 03:56 97.1 F 75 19 174/79 94 L 08/28/21 00:30 97.3 F 74 20 184/83 90 L 07/12/22 23:05 95 08/27/21 22:18 67 18 92 L 08/27/21 22:00 75 22 140/79 93 L 08/27/21 21:37 73 18 95 08/27/21 21:12 95 08/27/21 20:45 97.7 F 18 95 Home Medications Medication Instructions Recorded Confirmed Last Taken Type Carbamazepine 200 mg [Tegretol 200 mg PO DAILY 08/28/21 08/28/21 Unknown History 200 MG] Furosemide 40 mg [Lasix 40 80 mg PO BID 08/28/21 08/28/21 Unknown History MG] Potassium Chloride 10 meq PO BID 08/28/21 08/28/21 Unknown History Spironolactone 25 mg [Aldactone 50 mg PO BID 08/28/21 08/28/21 Unknown History 25 MG] Current Medications Generic Name Dose Route Start Last Admin Trade Name Freq PRN Reason Stop Dose Admin Albuterol/Ipratropium 3 ml 08/28/21 07:00 08/28/21 14:47 Ipratropium/Albuterol Sulfate 3 Ml Ampul.Neb IH 09/27/21 06:59 3 ml Q4HRT KIKO Administration Alprazolam 0.25 mg 08/28/21 13:00 08/28/21 12:41 Alprazolam 0.25 Mg Tablet PO 09/27/21 12:59 0.25 mg TID KIKO Administration Aripiprazole 5 mg 08/28/21 12:00 08/28/21 12:33 Aripiprazole 10 Mg Tablet PO 09/27/21 11:59 5 mg DAILY KIKO Administration Carbamazepine 200 mg 08/29/21 12:00 08/28/21 12:35 Carbamazepine 200 Mg Tablet PO 09/28/21 11:59 200 mg DAILY@1200 KIKO Administration Carbamazepine 400 mg 08/28/21 20:00 Carbamazepine 200 Mg Tablet PO 09/27/21 19:59 BID@0800,2000 KIKO Carvedilol 25 mg 08/28/21 12:30 08/28/21 12:41 Carvedilol 12.5 Mg Tablet PO 09/27/21 12:29 25 mg BID KIKO Administration Methylprednisolone Sodium 0 mg 08/28/21 00:00 08/28/21 16:54 Succinate 60 mg/ Sterile Water IV 09/27/21 00:00 60 mg 2 ml Q6HT KIKO Administration Duloxetine HCl 120 mg 08/28/21 12:30 08/28/21 12:32 Duloxetine Hcl 30 Mg Cap PO 09/27/21 12:29 120 mg DAILY KIKO Administration Furosemide 80 mg 08/28/21 12:30 08/28/21 16:53 Furosemide 40 Mg Tablet PO 09/27/21 12:29 80 mg BID DIURETIC KIKO Administration Ceftriaxone Sodium/Dextrose 1 g in 50 mls @ 100 mls/hr 08/28/21 10:00 08/28/21 10:14 Rocephin 1 Gm-D5w 50 Ml Bag IV 08/31/21 09:59 100 mls/hr Q24H10 KIKO Administration Sodium Chloride 1,000 mls @ 100 mls/hr 08/27/21 23:45 08/28/21 12:44 Sodium Chloride 0.9% 1000 Ml IV 09/26/21 23:44 100 mls/hr .Q10H KIKO Administration Azithromycin 500 mg in 250 mls @ 250 mls/hr 08/28/21 22:00 Zithromax 500 Mg/ 250 Ml Nacl Premix IV 09/27/21 21:59 Q24H22 KIKO Levothyroxine Sodium 150 mcg 08/28/21 12:30 08/28/21 12:41 Levothyroxine Sodium 150 Mcg Tablet PO 09/27/21 12:29 150 mcg QAM@0700 KIKO Administration Potassium Chloride 10 meq 08/28/21 12:30 08/28/21 12:32 Potassium Chloride Tab 10 Meq Tab PO 09/27/21 12:29 10 meq BID KIKO Administration Pregabalin 225 mg 08/28/21 12:30 08/28/21 12:33 Pregabalin 75 Mg Capsule PO 09/27/21 12:29 225 mg BID KIKO Administration Fluticasone/Salmeterol 2 puff 08/28/21 07:00 08/28/21 05:08 Fluticasone/Salmeterol / Common Canister IH 09/27/21 06:59 2 puff BIDRT KIKO Administration Spironolactone 50 mg 08/28/21 12:30 08/28/21 12:34 Spironolactone 25 Mg Tablet PO 09/27/21 12:29 50 mg BID KIKO Administration Tizanidine HCl 4 mg 08/28/21 22:00 Tizanidine Hcl 4 Mg Tablet PO 09/27/21 21:59 HS KIKO Trazodone HCl 400 mg 08/28/21 22:00 Trazodone Hcl 150 Mg Tablet PO 09/27/21 21:59 HS [facility] Discontinued Medications Generic Name Dose Route Start Last Admin Trade Name Graciela PRN Reason Stop Dose Admin Albuterol Sulfate 2.5 mg 08/27/21 21:51 08/27/21 22:18 Albuterol Sulfate 2.5 Mg/3 Ml Neb 08/27/21 21:52 2.5 mg STAT ONE Administration Albuterol Sulfate Confirm 08/27/21 22:17 Albuterol Sulfate 2.5 Mg/3 Ml Neb Administered 08/27/21 22:18 Dose 2.5 mg IH .STK-MED ONE Albuterol Sulfate 2.5 mg 08/27/21 23:22 08/28/21 04:55 Albuterol Sulfate 2.5 Mg/3 Ml Neb 09/26/21 23:21 Not Given Q4HRT [facility] Albuterol Sulfate Confirm 08/28/21 04:50 Albuterol Sulfate 2.5 Mg/3 Ml Neb Administered 08/28/21 04:51 Dose 2.5 mg IH .STK-MED ONE Albuterol/Ipratropium 3 ml 08/27/21 21:14 08/27/21 21:37 Ipratropium/Albuterol Sulfate 3 Ml Ampul.Neb 08/27/21 21:15 3 ml STAT ONE Administration Albuterol/Ipratropium Confirm 08/27/21 21:30 Ipratropium/Albuterol Sulfate 3 Ml Ampul.Neb Administered 08/27/21 21:31 Dose 3 ml IH .STK-MED ONE Methylprednisolone Sodium 0 mg 08/27/21 21:14 08/27/21 21:29 Succinate 125 mg/ Sterile IV 08/27/21 21:15 125 mg Water 2 ml STAT ONE Administration Ceftriaxone Sodium/Dextrose 2 g in 50 mls @ 100 mls/hr 08/27/21 22:12 08/27/21 22:47 Rocephin 2 Gm-D5w 50ml Bag IV 08/27/21 22:41 100 ml/hr STAT STA 100 mls/hr Administration Azithromycin 500 mg in 250 mls @ 250 mls/hr 08/27/21 22:12 08/28/21 11:11 Zithromax 500 Mg/ 250 Ml Nacl Premix IV 08/27/21 23:11 Not Given STAT STA Sodium Chloride 1,000 mls @ 100 mls/hr 08/27/21 22:15 Sodium Chloride 0.9% 1000 Ml IV 09/26/21 22:14 .Q10H KIKO Ceftriaxone Sodium/Dextrose Confirm 08/27/21 22:43 Rocephin 2 Gm-D5w 50ml Bag Administered 08/27/21 22:44 Dose 2 g in 50 mls @ ud IV .STK-MED ONE Sodium Chloride 1,000 mls @ 100 mls/hr 08/27/21 23:00 Sodium Chloride 0.9% 1000 Ml IV 09/26/21 22:14 .Q10H KIKO Azithromycin 500 mg in 250 mls @ 250 mls/hr 08/28/21 10:00 08/28/21 01:44 Zithromax 500 Mg/ 250 Ml Nacl Premix IV 09/27/21 09:59 250 mls/hr Q24H10 KIKO Administration Methylprednisolone Sodium Succinate Confirm 08/27/21 21:28 Methylprednis Sod Succ 125 Mg/2 Ml Vial Administered 08/27/21 21:29 Dose 125 mg .ROUTE .STK-MED ONE Methylprednisolone Sodium Succinate Confirm 08/28/21 06:32 Methylprednis Sod Succ 125 Mg/2 Ml Vial Administered 08/28/21 06:33 Dose 125 mg .ROUTE .STK-MED ONE Sterile Water Confirm 08/27/21 21:28 Water For Injection,Sterile 10 Ml Vial Administered 08/27/21 21:29 Dose 10 ml IJ .STK-MED ONE Intake & Output (Last 24 hours) 08/26/21 08/27/21 08/28/21 08/29/21 11:59 11:59 11:59 11:59 Intake Total 372 200 Balance 372 200 Weight 79.379 kg Microbiology Results (Last 24 hours) 08/27/21 21:22 Urine, Void Urine Culture - Preliminary GRAM NEGATIVE ID AND SENSITIVITY PENDING 08/27/21 21:49 Blood Blood Culture Gram Stain - Pending 08/27/21 21:49 Blood Blood Culture - Pending 08/27/21 21:22 Blood Blood Culture Gram Stain - Pending 08/27/21 21:22 Blood Blood Culture - Pending Laboratory Results (Last 24 hours) 08/28/21 08/28/21 08/27/21 06:00 06:00 21:59 WBC 13.2 H RBC 4.22 Hgb 12.4 Hct 37.5 MCV 88.9 MCH 29.4 MCHC 33.1 RDW 14.3 H Plt Count 246 MPV 8.9 Gran % Immature Gran % (Auto) Nucleat RBC Rel Count Eos # (Auto) Immature Gran # (Auto) Absolute Lymphs (auto) Absolute Monos (auto) Absolute Nucleated RBC Lymphocytes % Monocytes % Eosinophils % Basophils % Absolute Granulocytes Basophils # Sodium 127 L Potassium 4.2 Chloride 89 L Carbon Dioxide 29 Anion Gap 13.2 BUN 5 L Creatinine 0.35 L Estimated GFR > 60.0 Glucose 129 H Calcium 8.5 Total Bilirubin 0.50 AST 21 ALT 14 Alkaline Phosphatase 114 Troponin I NT-Pro-B Natriuret Pep 218 Serum Total Protein 7.2 Albumin 3.8 Urinalys Dipstick Clnc Urine Color Urine Appearance Urine pH Ur Specific [place] POC Urine Protein Conf Urine Ketones Urine Nitrite Urine Bilirubin Urine Urobilinogen Urine Leukocytes Urine WBC (Auto) Urine RBC (Auto) U Epithel Cells (Auto) Urine Bacteria (Auto) Urine RBC Unidentified Crystals Urine Mucus (Auto) Ur Culture Indicated? Urine Glucose Influenza Type A Ag Influenza Type B Ag RSV (PCR) SARS-CoV-2 (PCR) 08/27/21 08/27/21 08/27/21 21:49 21:22 21:22 WBC RBC Hgb Hct MCV MCH MCHC RDW Plt Count MPV Gran % Immature Gran % (Auto) Nucleat RBC Rel Count Eos # (Auto) Immature Gran # (Auto) Absolute Lymphs (auto) Absolute Monos (auto) Absolute Nucleated RBC Lymphocytes % Monocytes % Eosinophils % Basophils % Absolute Granulocytes Basophils # Sodium Potassium Chloride Carbon Dioxide Anion Gap BUN Creatinine Estimated GFR Glucose Calcium Total Bilirubin AST ALT Alkaline Phosphatase Troponin I < 0.012 NT-Pro-B Natriuret Pep Serum Total Protein Albumin Urinalys Dipstick Clnc MAIN LAB Urine Color YELLOW Urine Appearance CLEAR Urine pH 7.0 Ur Specific [place] 1.025 POC Urine Protein Conf 30 Urine Ketones NEGATIVE Urine Nitrite POSITIVE Urine Bilirubin NEGATIVE Urine Urobilinogen 0.2 Urine Leukocytes SMALL Urine WBC (Auto) 51-100 Urine RBC (Auto) 3-5 U Epithel Cells (Auto) RARE Urine Bacteria (Auto) FEW Urine RBC TRACE-LYSED Unidentified Crystals 2-5 Urine Mucus (Auto) SLIGHT Ur Culture Indicated? YES Urine Glucose NEGATIVE Influenza Type A Ag NEGATIVE Influenza Type B Ag NEGATIVE RSV (PCR) NEGATIVE SARS-CoV-2 (PCR) NEGATIVE 08/27/21 08/27/21 21:22 21:22 WBC 14.6 H RBC 4.17 Hgb 12.3 Hct 37.1 MCV 89.0 MCH 29.5 MCHC 33.2 RDW 14.4 H Plt Count 246 MPV 8.9 Gran % 80.9 H Immature Gran % (Auto) 0.4 Nucleat RBC Rel Count 0.0 Eos # (Auto) 0.22 Immature Gran # (Auto) 0.06 H Absolute Lymphs (auto) 1.39 Absolute Monos (auto) 1.02 Absolute Nucleated RBC 0.00 Lymphocytes % 9.6 L Monocytes % 7.0 Eosinophils % 1.5 Basophils % 0.6 Absolute Granulocytes 11.77 H Basophils # 0.09 Sodium 126 L Potassium 4.0 Chloride 85 L Carbon Dioxide 36 H Anion Gap 9.0 BUN 7 Creatinine 0.45 L Estimated GFR > 60.0 Glucose 108 H Calcium 8.6 Total Bilirubin 0.40 AST 22 ALT 13 Alkaline Phosphatase 130 H Troponin I NT-Pro-B Natriuret Pep Serum Total Protein 7.3 Albumin 3.8 Urinalys Dipstick Clnc Urine Color Urine Appearance Urine pH Ur Specific [place] POC Urine Protein Conf Urine Ketones Urine Nitrite Urine Bilirubin Urine Urobilinogen Urine Leukocytes Urine WBC (Auto) Urine RBC (Auto) U Epithel Cells (Auto) Urine Bacteria (Auto) Urine RBC Unidentified Crystals Urine Mucus (Auto) Ur Culture Indicated? 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 Machine Operator STAT Care 08/27/21 21:13 Completed Code Status Order ROUTINE Care 08/27/21 23:22 Active EKG-ER Only STAT Care 08/27/21 21:12 Completed IV Care Q6H Care 08/27/21 23:22 Active IV Insertion STAT Care 08/27/21 21:[address] in Observation ROUTINE Care 08/27/21 23:22 Active Pulse Oximetry (ED) STAT Care 08/27/21 21:12 Completed Yudy Chin ROUTINE Care 08/27/21 23:22 Active Telemetry q6h Care 08/27/21 23:22 Active Weight,Daily 0600 Care 08/27/21 23:22 Active House Regular Diet Diet 08/28/21 Breakfast Active Discharge Planning,Consult Routine Discharge 08/28/21 Active CHEST 1 VIEW (PORTABLE) Stat Exams 08/27/21 21:11 Completed BLOOD CULTURE Stat Lab 08/27/21 21:49 Received CBC AM.LAB Lab 08/28/21 06:00 Completed CBC W DIFF Stat Lab 08/27/21 21:22 Completed CMP AM.LAB Lab 08/28/21 06:00 Completed CMP Stat Lab 08/27/21 21:22 Completed COVID/FLU/RSV Panel Stat Lab 08/27/21 21:49 Completed CULTURE,URINE Stat Lab 08/27/21 21:22 Results NT PRO BNP Stat Lab 08/27/21 21:59 Completed TROPONIN Q3H Lab 08/27/21 21:22 Completed UA W/RFX CULTURE Stat Lab 08/27/21 21:22 Completed ALPRAZolam 0.25 MG [xanAX 0.25 MG] Med 08/28/21 13:00 Active 0.25 mg PO TID Albuterol 2.5 mg/3 ml Neb [Proventil 2.5 mg/3 ml Neb Med 08/27/21 22:17 Discontinued ] 2.5 mg IH .STK-MED ONE Albuterol 2.5 mg/3 ml Neb [Proventil 2.5 mg/3 ml Neb Med 08/28/21 04:50 Discontinued ] 2.5 mg IH .STK-MED ONE Albuterol 2.5 mg/3 ml Neb [Proventil 2.5 mg/3 ml Neb Med 08/27/21 23:22 Discontinued ] 2.5 mg IH Q4HRT Albuterol 2.5 mg/3 ml Neb [Proventil 2.5 mg/3 ml Neb Med 08/27/21 21:51 Discontinued ] 2.5 mg IH STAT ONE Albuterol/Ipratropium 3ml Neb* [DUONEB 0.5-3 MG/3 ml Med 08/27/21 21:30 Discontinued Neb] 3 ml IH .STK-MED ONE Albuterol/Ipratropium 3ml Neb* [DUONEB 0.5-3 MG/3 ml Med 08/28/21 07:00 Active Neb] 3 ml IH Q4HRT Albuterol/Ipratropium 3ml Neb* [DUONEB 0.5-3 MG/3 ml Med 08/27/21 21:14 Discontinued Neb] 3 ml IH STAT ONE Aripiprazole 10 mg [Abilify 10 MG] Med 08/28/21 12:00 Active 5 mg PO DAILY Azithromycin 500 mg/250 ml [Zithromax 500 MG/ 250 ML Med 08/28/21 10:00 Discontinued NaCl Premix] 500 mg in 250 ml IV Q24H10 Azithromycin 500 mg/250 ml [Zithromax 500 MG/ 250 ML Med 08/28/21 22:00 Active NaCl Premix] 500 mg in 250 ml IV Q24H22 Azithromycin 500 mg/250 ml [Zithromax 500 MG/ 250 ML Med 08/27/21 22:12 Discontinued NaCl Premix] 500 mg in 250 ml IV STAT Carbamazepine 200 mg [Tegretol 200 MG] Med 08/29/21 12:00 Active 200 mg PO DAILY@1200 Carbamazepine 200 mg [Tegretol 200 MG] Med 08/28/21 20:00 Active 400 mg PO BID@0800,2000 Carvedilol 12.5 mg [Coreg 12.5 mg] Med 08/28/21 12:30 Active 25 mg PO BID Ceftriaxone 1 GM/50 ML PREMIX* [ROCEPHIN 1 Gm-D5w 50 ml Med 08/28/21 10:00 Active Bag] 1 g in 50 ml IV Q24H10 Ceftriaxone 2 GM/50 ML PREMIX* [ROCEPHIN 2 Gm-D5w 50ML Med 08/27/21 22:12 Discontinued BAG] 2 g in 50 ml IV STAT Ceftriaxone 2 GM/50 ML PREMIX* [ROCEPHIN 2 Gm-D5w 50ML Med 08/27/21 22:43 Discontinued BAG] 2 g in 50 ml IV UD Duloxetine HCl 30 mg [Cymbalta 30 MG Capsule] Med 08/28/21 12:30 Active 120 mg PO DAILY Fluticasone/Salmeterol 230/21 [Advair Hfa 230/21 Mcg Med 08/28/21 07:00 Active COMMON CANISTER*] 2 puff IH BIDRT Furosemide 40 mg [Lasix 40 MG] Med 08/28/21 12:30 Active 80 mg PO BID DIURETIC Levothyroxine Sodium 150 Mcg [Synthroid 150 Mcg] Med 08/28/21 12:30 Active 150 mcg PO QAM@0700 Methylprednis Sod Succ 125 mg* [solu-MEDROL] Med 08/27/21 21:28 Discontinued 125 mg .ROUTE .STK-MED ONE Methylprednis Sod Succ 125 mg* [solu-MEDROL] Med 08/28/21 06:32 Discontinued 125 mg .ROUTE .STK-MED ONE Methylprednis Sod Succ 125 mg* [solu-MEDROL] 125 mg Med 08/27/21 21:14 Discontinued Water For Injection,Sterile [Sterile H2O 10 ml] 2 ml IV STAT Methylprednis Sod Succ 125 mg* [solu-MEDROL] 60 mg Med 08/28/21 00:00 Active Water For Injection,Sterile [Sterile H2O 10 ml] 2 ml IV Q6HT NaCl 0.9% 1000 ml [Sodium Chloride 0.9% 1000 ML] 1,000 Med 08/27/21 22:15 Discontinued ml IV 100 mls/hr NaCl 0.9% 1000 ml [Sodium Chloride 0.9% 1000 ML] 1,000 Med 08/27/21 23:00 Discontinued ml IV 100 mls/hr NaCl 0.9% 1000 ml [Sodium Chloride 0.9% 1000 ML] 1,000 Med 08/27/21 23:45 Active ml IV 100 mls/hr Potassium Chloride Tab* [Klor Con] Med 08/28/21 12:30 Active 10 meq PO BID Pregabalin [Lyrica 75 mg Cap] Med 08/28/21 12:30 Active 225 mg PO BID Spironolactone 25 mg [Aldactone 25 MG] Med 08/28/21 12:30 Active 50 mg PO BID Tizanidine HCl 4 mg [Zanaflex 4 MG] Med 08/28/21 22:00 Active 4 mg PO HS Trazodone HCl 150 mg [Desyrel 150 MG] Med 08/28/21 22:00 Active 400 mg PO HS Water For Injection,Sterile [Sterile H2O 10 ml] Med 08/27/21 21:28 Discontinued 10 ml IJ .STK-MED ONE Oxygen Nasal Cannula 3 lpm RT 08/28/21 01:41 Active Pulse Oximetry .spot check RT 08/28/21 05:18 Active Respiratory Therapy Assessment DAILY RT 08/27/21 21:36 Active Patient Care Notes (Last 24 hours) 08/28/21 15:28 Case Management Note by Ayesha Lopez REFERRAL FAXED TO [facility] PER REQUEST Code(s): J44.1 - CHRONIC OBSTRUCTIVE PULMONARY DISEASE W (ACUTE) EXACERBATION (2) Generalized weakness Current Visit: Yes Status: Acute Code(s): R53.1 - WEAKNESS (3) Hyponatremia Current Visit: Yes Status: Acute Code(s): E87.1 - HYPO-OSMOLALITY AND HYPONATREMIA (4) UTI (urinary tract infection) Current Visit: Yes Status: Acute Code(s): N39.0 - URINARY TRACT INFECTION, SITE NOT SPECIFIED
[2021-08-28] MEDS: Tegretol 200 MG PO SCH (20:04)
[2021-08-28] MEDS ORDERED: Zanaflex 4 MG PO SCH (22:00)
[2021-08-28] MEDS ORDERED: Desyrel 150 MG PO SCH (22:00)
[2021-08-28] MEDS ORDERED: DESYREL 50 MG PO SCH (22:00)
[2021-08-29] MEDS: DUONEB 0.5-3 MG/3 ml Neb IH SCH ×3 (03:47→10:56)
[2021-08-29] MEDS ORDERED: solu-MEDROL ONE (06:10)
[2021-08-29] MEDS: solu-MEDROL 60 MG, Sterile H2O 10 ml 2 ML IV SCH ×2 (06:18)
[2021-08-29] MEDS: Advair Hfa 230/21 Mcg COMMON CANISTER IH SCH (07:04)
--- NOTE | 2021-08-29 07:52 | PCM.NOTE ---
Date and Time: 08/29/21 0751 Subjective Assessment: doing ok - Review of Systems Constitutional: No Fever, No Chills Eyes: No Symptoms Ears, Nose, & Throat: No Symptoms Respiratory: Short Of Breath, No Cough Cardiac: No Chest Pain, No Edema, No Syncope Abdominal/Gastrointestinal: No Abdominal Pain, No Nausea, No Vomiting, No Diarrhea Genitourinary Symptoms: No Dysuria Musculoskeletal: No Back Pain, No Neck Pain Skin: No Rash Neurological: No Dizziness, No Focal Weakness, No Sensory Changes Psychological: No Symptoms Endocrine: No Symptoms Hematologic/Lymphatic: No Symptoms Immunological/Allergic: No Symptoms Objective Exam General Appearance: mild distress, alert Neurologic Exam: alert, oriented x 3, cooperative, normal mood/affect, nml cerebellar function, sensation nml, No motor deficits Skin Exam: normal color, warm, dry Eye Exam: PERRL, EOMI, eyes nml inspection Ears, Nose, Throat Exam: normal ENT inspection, pharynx normal, moist mucous membranes Neck Exam: normal inspection, non-tender, supple, full range of motion Respiratory Exam: diminished breath sounds, wheezing, No respiratory distress Cardiovascular Exam: regular rate/rhythm, normal heart sounds Gastrointestinal/Abdomen Exam: soft, No tenderness, No mass Extremity Exam: normal inspection, normal range of motion Back Exam: normal inspection, normal range of motion, No CVA tenderness, No vertebral tenderness Pelvic Exam: deferred Rectal Exam: deferred OBJECTIVE DATA Vital Signs: Vital Signs - 24 hr Temp Pulse Resp BP Pulse Ox 08/29/21 07:26 98.0 F 60 16 164/72 94 L 08/29/21 07:05 61 18 94 L 08/29/21 03:59 97.3 F 54 L 17 141/63 97 08/29/21 03:47 53 L 16 96 08/29/21 00:00 96.4 F 75 16 165/72 95 08/28/21 23:20 76 16 94 L 08/28/21 19:49 97.5 F 66 16 175/74 93 L 08/28/21 19:41 65 18 93 L 08/28/21 16:00 97.1 F 65 17 176/81 93 L 08/28/21 14:50 65 16 94 L 08/28/21 12:00 96.6 F 72 18 212/102 91 L 08/28/21 10:35 63 20 93 L Pain Assessment - Last Documented Pain Intensity 0 Intake and Output: Intake & Output 08/26/21 08/27/21 08/28/21 08/29/21 11:59 11:59 11:59 11:59 Intake Total 372 4046 Output Total 3300 Balance 372 746 Weight 79.379 kg 78.5 kg Radiology Exams: Radiology Procedures Category Date Time Status CHEST 1 VIEW (PORTABLE) Stat Exams 08/27/21 21:11 Completed Multi-Disciplinary Progress Notes: Multi-Disciplinary Progress Notes 08/28/21 15:28 Case Management Note by Ayesha Lopez REFERRAL FAXED TO [facility] PER REQUEST Initialized on 08/28/21 15:28 - END OF NOTE Assessment/Plan (1) COPD with exacerbation Current Visit: Yes Status: Acute Assessment & Plan: Chief Complaint Diagnosis generalized weakness and shortness of breath for 2 days Allergies Allergy/AdvReac Type Severity Reaction Status Date / Time No Known Drug Allergies Allergy Verified 07/03/21 21:00 Vital Signs (Last 24 hours) Temp Pulse Resp BP Pulse Ox 08/29/21 07:26 98.0 F 60 16 164/72 94 L 08/29/21 07:05 61 18 94 L 08/29/21 03:59 97.3 F 54 L 17 141/63 97 08/29/21 03:47 53 L 16 96 08/29/21 00:00 96.4 F 75 16 165/72 95 08/28/21 23:20 76 16 94 L 08/28/21 19:49 97.5 F 66 16 175/74 93 L 08/28/21 19:41 65 18 93 L 08/28/21 16:00 97.1 F 65 17 176/81 93 L 08/28/21 14:50 65 16 94 L 08/28/21 12:00 96.6 F 72 18 212/102 91 L 08/28/21 10:35 63 20 93 L Home Medications Medication Instructions Recorded Confirmed Last Taken Type Carbamazepine 200 mg [Tegretol 200 mg PO DAILY 08/28/21 08/28/21 Unknown History 200 MG] Furosemide 40 mg [Lasix 40 80 mg PO BID 08/28/21 08/28/21 Unknown History MG] Potassium Chloride 10 meq PO BID 08/28/21 08/28/21 Unknown History Spironolactone 25 mg [Aldactone 50 mg PO BID 08/28/21 08/28/21 Unknown History 25 MG] Current Medications Generic Name Dose Route Start Last Admin Trade Name Graciela ALVARADO Reason Stop Dose Admin Albuterol/Ipratropium 3 ml 08/28/21 07:00 08/29/21 07:04 Ipratropium/Albuterol Sulfate 3 Ml Ampul.Neb IH 09/27/21 06:59 3 ml Q4HRT KIKO Administration Alprazolam 0.25 mg 08/28/21 13:00 08/28/21 22:59 Alprazolam 0.25 Mg Tablet PO 09/27/21 12:59 0.25 mg TID KIKO Administration Aripiprazole 5 mg 08/28/21 12:00 08/28/21 12:33 Aripiprazole 10 Mg Tablet PO 09/27/21 11:59 5 mg DAILY KIKO Administration Carbamazepine 200 mg 08/29/21 12:00 08/28/21 12:35 Carbamazepine 200 Mg Tablet PO 09/28/21 11:59 200 mg DAILY@1200 KIKO Administration Carbamazepine 400 mg 08/28/21 20:00 08/28/21 20:04 Carbamazepine 200 Mg Tablet PO 09/27/21 19:59 400 mg BID@0800,2000 KIKO Administration Carvedilol 25 mg 08/28/21 12:30 08/28/21 22:59 Carvedilol 12.5 Mg Tablet PO 09/27/21 12:29 25 mg BID KIKO Administration Methylprednisolone Sodium 0 mg 08/28/21 00:00 08/29/21 06:18 Succinate 60 mg/ Sterile Water IV 09/27/21 00:00 60 mg 2 ml Q6HT KIKO Administration Duloxetine HCl 120 mg 08/28/21 12:30 08/28/21 12:32 Duloxetine Hcl 30 Mg Cap PO 09/27/21 12:29 120 mg DAILY KIKO Administration Furosemide 80 mg 08/28/21 12:30 08/28/21 16:53 Furosemide 40 Mg Tablet PO 09/27/21 12:29 80 mg BID DIURETIC KIKO Administration Ceftriaxone Sodium/Dextrose 1 g in 50 mls @ 100 mls/hr 08/28/21 10:00 08/28/21 10:14 Rocephin 1 Gm-D5w 50 Ml Bag IV 08/31/21 09:59 100 mls/hr Q24H10 KIKO Administration Sodium Chloride 1,000 mls @ 100 mls/hr 08/27/21 23:45 08/28/21 22:56 Sodium Chloride 0.9% 1000 Ml IV 09/26/21 23:44 100 mls/hr .Q10H KIKO Administration Azithromycin 500 mg in 250 mls @ 250 mls/hr 08/28/21 22:00 08/28/21 22:58 Zithromax 500 Mg/ 250 Ml Nacl Premix IV 09/27/21 21:59 250 mls/hr Q24H22 KIKO Administration Levothyroxine Sodium 150 mcg 08/28/21 12:30 08/28/21 12:41 Levothyroxine Sodium 150 Mcg Tablet PO 09/27/21 12:29 150 mcg QAM@0700 KIKO Administration Potassium Chloride 10 meq 08/28/21 12:30 08/28/21 22:59 Potassium Chloride Tab 10 Meq Tab PO 09/27/21 12:29 10 meq BID KIKO Administration Pregabalin 225 mg 08/28/21 12:30 08/28/21 22:59 Pregabalin 75 Mg Capsule PO 09/27/21 12:29 225 mg BID KIKO Administration Fluticasone/Salmeterol 2 puff 08/28/21 07:00 08/29/21 07:04 Fluticasone/Salmeterol 230/21 Common Canister IH 09/27/21 06:59 2 puff BIDRT KIKO Administration Spironolactone 50 mg 08/28/21 12:30 08/28/21 22:59 Spironolactone 25 Mg Tablet PO 09/27/21 12:29 50 mg BID KIKO Administration Tizanidine HCl 4 mg 08/28/21 22:00 08/28/21 22:59 Tizanidine Hcl 4 Mg Tablet PO 09/27/21 21:59 4 mg HS KIKO Administration Trazodone HCl 400 mg 08/28/21 22:00 08/28/21 22:59 Trazodone Hcl 150 Mg Tablet PO 09/27/21 21:59 400 mg HS KIKO Administration Discontinued Medications Generic Name Dose Route Start Last Admin Trade Name Freq PRN Reason Stop Dose Admin Albuterol Sulfate 2.5 mg 08/27/21 21:51 08/27/21 22:18 Albuterol Sulfate 2.5 Mg/3 Ml Neb IH 08/27/21 21:52 2.5 mg STAT ONE Administration Albuterol Sulfate Confirm 08/27/21 22:17 Albuterol Sulfate 2.5 Mg/3 Ml Neb Administered 08/27/21 22:18 Dose 2.5 mg IH .STK-MED ONE Albuterol Sulfate 2.5 mg 08/27/21 23:22 08/28/21 04:55 Albuterol Sulfate 2.5 Mg/3 Ml Neb IH 09/26/21 23:21 Not Given Q4HRT KIKO Albuterol Sulfate Confirm 08/28/21 04:50 Albuterol Sulfate 2.5 Mg/3 Ml Neb Administered 08/28/21 04:51 Dose 2.5 mg IH .STK-MED ONE Albuterol/Ipratropium 3 ml 08/27/21 21:14 08/27/21 21:37 Ipratropium/Albuterol Sulfate 3 Ml Ampul.Neb IH 08/27/21 21:15 3 ml STAT ONE Administration Albuterol/Ipratropium Confirm 08/27/21 21:30 Ipratropium/Albuterol Sulfate 3 Ml Ampul.Neb Administered 08/27/21 21:31 Dose 3 ml IH .STK-MED ONE Methylprednisolone Sodium 0 mg 08/27/21 21:14 08/27/21 21:29 Succinate 125 mg/ Sterile IV 08/27/21 21:15 125 mg Water 2 ml STAT ONE Administration Ceftriaxone Sodium/Dextrose 2 g in 50 mls @ 100 mls/hr 08/27/21 22:12 08/27/21 22:47 Rocephin 2 Gm-D5w 50ml Bag IV 08/27/21 22:41 100 ml/hr STAT STA 100 mls/hr Administration Azithromycin 500 mg in 250 mls @ 250 mls/hr 08/27/21 22:12 08/28/21 11:11 Zithromax 500 Mg/ 250 Ml Nacl Premix IV 08/27/21 23:11 Not Given STAT STA Sodium Chloride 1,000 mls @ 100 mls/hr 08/27/21 22:15 Sodium Chloride 0.9% 1000 Ml IV 09/26/21 22:14 .Q10H KIKO Ceftriaxone Sodium/Dextrose Confirm 08/27/21 22:43 Rocephin 2 Gm-D5w 50ml Bag Administered 08/27/21 22:44 Dose 2 g in 50 mls @ ud IV .STK-MED ONE Sodium Chloride 1,000 mls @ 100 mls/hr 08/27/21 23:00 Sodium Chloride 0.9% 1000 Ml IV 09/26/21 22:14 .Q10H KIKO Azithromycin 500 mg in 250 mls @ 250 mls/hr 08/28/21 10:00 08/28/21 01:44 Zithromax 500 Mg/ 250 Ml Nacl Premix IV 09/27/21 09:59 250 mls/hr Q24H10 KIKO Administration Methylprednisolone Sodium Succinate Confirm 08/27/21 21:28 Methylprednis Sod Succ 125 Mg/2 Ml Vial Administered 08/27/21 21:29 Dose 125 mg .ROUTE .STK-MED ONE Methylprednisolone Sodium Succinate Confirm 08/28/21 06:32 Methylprednis Sod Succ 125 Mg/2 Ml Vial Administered 08/28/21 06:33 Dose 125 mg .ROUTE .STK-MED ONE Methylprednisolone Sodium Succinate Confirm 08/28/21 22:01 Methylprednis Sod Succ 125 Mg/2 Ml Vial Administered 08/28/21 22:02 Dose 125 mg .ROUTE .STK-MED ONE Methylprednisolone Sodium Succinate Confirm 08/29/21 06:10 Methylprednis Sod Succ 125 Mg/2 Ml Vial Administered 08/29/21 06:11 Dose 125 mg .ROUTE .STK-MED ONE Sterile Water Confirm 08/27/21 21:28 Water For Injection,Sterile 10 Ml Vial Administered 08/27/21 21:29 Dose 10 ml IJ .STK-MED ONE Intake & Output (Last 24 hours) 08/26/21 08/27/21 08/28/21 08/29/21 11:59 11:59 11:59 11:59 Intake Total 372 4046 Output Total 3300 Balance 372 746 Weight 79.379 kg 78.5 kg Microbiology Results (Last 24 hours) 08/27/21 21:22 Urine, Void Urine Culture - Preliminary GRAM NEGATIVE ID AND SENSITIVITY PENDING Orders (Last 24 hours) Category Date Time Status House Regular Diet Diet 08/28/21 Breakfast Active ALPRAZolam 0.25 MG [xanAX 0.25 MG] Med 08/28/21 13:00 Active 0.25 mg PO TID Albuterol/Ipratropium 3ml Neb* [DUONEB 0.5-3 MG/3 ml Med 08/28/21 07:00 Active Neb] 3 ml IH Q4HRT Aripiprazole 10 mg [Abilify 10 MG] Med 08/28/21 12:00 Active 5 mg PO DAILY Azithromycin 500 mg/250 ml [Zithromax 500 MG/ 250 ML Med 08/28/21 10:00 Discontinued NaCl Premix] 500 mg in 250 ml IV Q24H10 Azithromycin 500 mg/250 ml [Zithromax 500 MG/ 250 ML Med 08/28/21 22:00 Active NaCl Premix] 500 mg in 250 ml IV Q24H22 Carbamazepine 200 mg [Tegretol 200 MG] Med 08/29/21 12:00 Active 200 mg PO DAILY@1200 Carbamazepine 200 mg [Tegretol 200 MG] Med 08/28/21 20:00 Active 400 mg PO BID@0800,2000 Carvedilol 12.5 mg [Coreg 12.5 mg] Med 08/28/21 12:30 Active 25 mg PO BID Ceftriaxone 1 GM/50 ML PREMIX* [ROCEPHIN 1 Gm-D5w 50 ml Med 08/28/21 10:00 Active Bag] 1 g in 50 ml IV Q24H10 Duloxetine HCl 30 mg [Cymbalta 30 MG Capsule] Med 08/28/21 12:30 Active 120 mg PO DAILY Fluticasone/Salmeterol 230/21 [Advair Hfa 230/21 Mcg Med 08/28/21 07:00 Active COMMON CANISTER*] 2 puff IH BIDRT Furosemide 40 mg [Lasix 40 MG] Med 08/28/21 12:30 Active 80 mg PO BID DIURETIC Levothyroxine Sodium 150 Mcg [Synthroid 150 Mcg] Med 08/28/21 12:30 Active 150 mcg PO QAM@0700 Methylprednis Sod Succ 125 mg* [solu-MEDROL] Med 08/28/21 22:01 Discontinued 125 mg .ROUTE .STK-MED ONE Methylprednis Sod Succ 125 mg* [solu-MEDROL] Med 08/29/21 06:10 Discontinued 125 mg .ROUTE .STK-MED ONE Potassium Chloride Tab* [Klor Con] Med 08/28/21 12:30 Active 10 meq PO BID Pregabalin [Lyrica 75 mg Cap] Med 08/28/21 12:30 Active 225 mg PO BID Spironolactone 25 mg [Aldactone 25 MG] Med 08/28/21 12:30 Active 50 mg PO BID Tizanidine HCl 4 mg [Zanaflex 4 MG] Med 08/28/21 22:00 Active 4 mg PO HS Trazodone HCl 150 mg [Desyrel 150 MG] Med 08/28/21 22:00 Active 400 mg PO HS Patient Care Notes (Last 24 hours) 08/28/21 15:28 Case Management Note by Ayesha Lopez REFERRAL FAXED TO [facility] PER REQUEST Initialized on 08/28/21 15:28 - END OF NOTE Code(s): J44.1 - CHRONIC OBSTRUCTIVE PULMONARY DISEASE W (ACUTE) EXACERBATION (2) Generalized weakness Current Visit: Yes Status: Acute Code(s): R53.1 - WEAKNESS (3) Hyponatremia Current Visit: Yes Status: Acute Code(s): E87.1 - HYPO-OSMOLALITY AND HYPONATREMIA (4) UTI (urinary tract infection) Current Visit: Yes Status: Acute Code(s): N39.0 - URINARY TRACT INFECTION, SITE NOT SPECIFIED
[2021-08-29] MEDS: Tegretol 200 MG PO SCH (09:59)
[2021-08-29] MEDS: Abilify 10 MG PO SCH (10:00)
[2021-08-29] MEDS: Aldactone 25 MG PO SCH (10:01)
[2021-08-29] MEDS: COREG 12.5 MG PO SCH (10:01)
[2021-08-29] MEDS: Cymbalta 30 MG Capsule PO SCH (10:02)
[2021-08-29] MEDS: Lasix 40 MG PO SCH (10:03)
[2021-08-29] MEDS: Klor Con PO SCH (10:03)
[2021-08-29] MEDS: xanAX 0.25 MG PO SCH (10:04)
[2021-08-29] MEDS: LYRICA 75 MG CAP PO SCH (10:04)
[2021-08-29] MEDS: SYNTHROID 150 MCG PO SCH (10:14)
[2021-08-29 11:02] VITALS: PULSE 66; O2SAT 91
[2021-08-29 11:22] VITALS: BP 161/70
[2021-08-29] MEDS ORDERED: Tegretol 200 MG PO SCH (12:00)
[2021-08-29] MEDS: ROCEPHIN 1 Gm-D5w 50 ml Bag** 1 G/50 ML IVPB IV SCH (12:39)
--- NOTE | 2021-08-29 17:21 | PCM.DS ---
Discharge Summary Date of Admission: 08/27/21 23:10 Admitting Physician: CLARENCE RINCON Primary Care Provider: KADEN SCHAFER NP Allergies Allergies No Known Drug Allergies Allergy (Verified 07/03/21 21:00) Hospital Summary - Hospital Course Hospital Course: Chief Complaint Diagnosis generalized weakness and shortness of breath for 2 days Allergies Allergy/AdvReac Type Severity Reaction Status Date / Time No Known Drug Allergies Allergy Verified 07/03/21 21:00 Vital Signs (Last 24 hours) Temp Pulse Resp BP Pulse Ox 08/29/21 11:21 98.0 F 66 16 161/70 91 L 08/29/21 10:58 66 18 91 L 08/29/21 07:26 98.0 F 60 16 164/72 94 L 08/29/21 07:05 61 18 94 L 08/29/21 03:59 97.3 F 54 L 17 141/63 97 08/29/21 03:47 53 L 16 96 08/29/21 00:00 96.4 F 75 16 165/72 95 08/28/21 23:20 76 16 94 L 08/28/21 19:49 97.5 F 66 16 175/74 93 L 08/28/21 19:41 65 18 93 L Home Medications Medication Instructions Recorded Confirmed Last Taken Type Carbamazepine 200 mg [Tegretol 200 mg PO DAILY 08/28/21 08/28/21 Unknown History 200 MG] Furosemide 40 mg [Lasix 40 80 mg PO BID 08/28/21 08/28/21 Unknown History MG] Potassium Chloride 10 meq PO BID 08/28/21 08/28/21 Unknown History Spironolactone 25 mg [Aldactone 50 mg PO BID 08/28/21 08/28/21 Unknown History 25 MG] Levofloxacin [Levofloxacin 250 mg PO DAILY 5 Days #5 tab 08/29/21 Unknown Rx 250MG Tablet] Current Medications Discontinued Medications Generic Name Dose Route Start Last Admin Trade Name Freq PRN Reason Stop Dose Admin Albuterol Sulfate 2.5 mg 08/27/21 21:51 08/27/21 22:18 Albuterol Sulfate 2.5 Mg/3 Ml Neb IH 08/27/21 21:52 2.5 mg STAT ONE Administration Albuterol Sulfate Confirm 08/27/21 22:17 Albuterol Sulfate 2.5 Mg/3 Ml Neb Administered 08/27/21 22:18 Dose 2.5 mg IH .STK-MED ONE Albuterol Sulfate 2.5 mg 08/27/21 23:22 08/28/21 04:55 Albuterol Sulfate 2.5 Mg/3 Ml Neb IH 09/26/21 23:21 Not Given Q4HRT KIKO Albuterol Sulfate Confirm 08/28/21 04:50 Albuterol Sulfate 2.5 Mg/3 Ml Neb Administered 08/28/21 04:51 Dose 2.5 mg IH .STK-MED ONE Albuterol/Ipratropium 3 ml 08/27/21 21:14 08/27/21 21:37 Ipratropium/Albuterol Sulfate 3 Ml Ampul.Neb IH 08/27/21 21:15 3 ml STAT ONE Administration Albuterol/Ipratropium Confirm 08/27/21 21:30 Ipratropium/Albuterol Sulfate 3 Ml Ampul.Neb Administered 08/27/21 21:31 Dose 3 ml IH .STK-MED ONE Albuterol/Ipratropium 3 ml 08/28/21 07:00 08/29/21 10:56 Ipratropium/Albuterol Sulfate 3 Ml Ampul.Neb IH 09/27/21 06:59 3 ml Q4HRT KIOK Administration Alprazolam 0.25 mg 08/28/21 13:00 08/29/21 10:04 Alprazolam 0.25 Mg Tablet PO 09/27/21 12:59 0.25 mg TID KIKO Administration Aripiprazole 5 mg 08/28/21 12:00 08/29/21 10:00 Aripiprazole 10 Mg Tablet PO 09/27/21 11:59 5 mg DAILY KIKO Administration Carbamazepine 200 mg 08/29/21 12:00 08/28/21 12:35 Carbamazepine 200 Mg Tablet PO 09/28/21 11:59 200 mg DAILY@1200 KIKO Administration Carbamazepine 400 mg 08/28/21 20:00 08/29/21 09:59 Carbamazepine 200 Mg Tablet PO 09/27/21 19:59 400 mg BID@0800,2000 KIKO Administration Carvedilol 25 mg 08/28/21 12:30 08/29/21 10:01 Carvedilol 12.5 Mg Tablet PO 09/27/21 12:29 25 mg BID KIKO Administration Methylprednisolone Sodium 0 mg 08/27/21 21:14 08/27/21 21:29 Succinate 125 mg/ Sterile IV 08/27/21 21:15 125 mg Water 2 ml STAT ONE Administration Methylprednisolone Sodium 0 mg 08/28/21 00:00 08/29/21 06:18 Succinate 60 mg/ Sterile Water IV 09/27/21 00:00 60 mg 2 ml Q6HT KIKO Administration Duloxetine HCl 120 mg 08/28/21 12:30 08/29/21 10:02 Duloxetine Hcl 30 Mg Cap PO 09/27/21 12:29 120 mg DAILY KIKO Administration Furosemide 80 mg 08/28/21 12:30 08/29/21 10:03 Furosemide 40 Mg Tablet PO 09/27/21 12:29 80 mg BID DIURETIC KIKO Administration Ceftriaxone Sodium/Dextrose 2 g in 50 mls @ 100 mls/hr 08/27/21 22:12 08/27/21 22:47 Rocephin 2 Gm-D5w 50ml Bag IV 08/27/21 22:41 100 ml/hr STAT STA 100 mls/hr Administration Azithromycin 500 mg in 250 mls @ 250 mls/hr 08/27/21 22:12 08/28/21 11:11 Zithromax 500 Mg/ 250 Ml Nacl Premix IV 08/27/21 23:11 Not Given STAT STA Sodium Chloride 1,000 mls @ 100 mls/hr 08/27/21 22:15 Sodium Chloride 0.9% 1000 Ml IV 09/26/21 22:14 .Q10H KIKO Ceftriaxone Sodium/Dextrose Confirm 08/27/21 22:43 Rocephin 2 Gm-D5w 50ml Bag Administered 08/27/21 22:44 Dose 2 g in 50 mls @ ud IV .STK-MED ONE Sodium Chloride 1,000 mls @ 100 mls/hr 08/27/21 23:00 Sodium Chloride 0.9% 1000 Ml IV 09/26/21 22:14 .Q10H KIKO Ceftriaxone Sodium/Dextrose 1 g in 50 mls @ 100 mls/hr 08/28/21 10:00 08/29/21 12:39 Rocephin 1 Gm-D5w 50 Ml Bag IV 08/31/21 09:59 Not Given Q24H10 KIKO Azithromycin 500 mg in 250 mls @ 250 mls/hr 08/28/21 10:00 08/28/21 01:44 Zithromax 500 Mg/ 250 Ml Nacl Premix IV 09/27/21 09:59 250 mls/hr Q24H10 KIKO Administration Sodium Chloride 1,000 mls @ 100 mls/hr 08/27/21 23:45 08/28/21 22:56 Sodium Chloride 0.9% 1000 Ml IV 09/26/21 23:44 100 mls/hr .Q10H KIKO Administration Azithromycin 500 mg in 250 mls @ 250 mls/hr 08/28/21 22:00 08/28/21 22:58 Zithromax 500 Mg/ 250 Ml Nacl Premix IV 09/27/21 21:59 250 mls/hr Q24H22 KIKO Administration Levothyroxine Sodium 150 mcg 08/28/21 12:30 08/29/21 10:14 Levothyroxine Sodium 150 Mcg Tablet PO 09/27/21 12:29 150 mcg QAM@0700 KIKO Administration Methylprednisolone Sodium Succinate Confirm 08/27/21 21:28 Methylprednis Sod Succ 125 Mg/2 Ml Vial Administered 08/27/21 21:29 Dose 125 mg .ROUTE .STK-MED ONE Methylprednisolone Sodium Succinate Confirm 08/28/21 06:32 Methylprednis Sod Succ 125 Mg/2 Ml Vial Administered 08/28/21 06:33 Dose 125 mg .ROUTE .STK-MED ONE Methylprednisolone Sodium Succinate Confirm 08/28/21 22:01 Methylprednis Sod Succ 125 Mg/2 Ml Vial Administered 08/28/21 22:02 Dose 125 mg .ROUTE .STK-MED ONE Methylprednisolone Sodium Succinate Confirm 08/29/21 06:10 Methylprednis Sod Succ 125 Mg/2 Ml Vial Administered 08/29/21 06:11 Dose 125 mg .ROUTE .STK-MED ONE Potassium Chloride 10 meq 08/28/21 12:30 08/29/21 10:03 Potassium Chloride Tab 10 Meq Tab PO 09/27/21 12:29 10 meq BID KIKO Administration Pregabalin 225 mg 08/28/21 12:30 08/29/21 10:04 Pregabalin 75 Mg Capsule PO 09/27/21 12:29 225 mg BID KIKO Administration Fluticasone/Salmeterol 2 puff 08/28/21 07:00 08/29/21 07:04 Fluticasone/Salmeterol 230/21 Common Canister IH 09/27/21 06:59 2 puff BIDRT KIKO Administration Spironolactone 50 mg 08/28/21 12:30 08/29/21 10:01 Spironolactone 25 Mg Tablet PO 09/27/21 12:29 50 mg BID KIKO Administration Sterile Water Confirm 08/27/21 21:28 Water For Injection,Sterile 10 Ml Vial Administered 08/27/21 21:29 Dose 10 ml IJ .STK-MED ONE Tizanidine HCl 4 mg 08/28/21 22:00 08/28/21 22:59 Tizanidine Hcl 4 Mg Tablet PO 09/27/21 21:59 4 mg HS KIKO Administration Trazodone HCl 400 mg 08/28/21 22:00 08/28/21 22:59 Trazodone Hcl 150 Mg Tablet PO 09/27/21 21:59 400 mg HS KIKO Administration Intake & Output (Last 24 hours) 08/27/21 08/28/21 08/29/21 08/30/21 11:59 11:59 11:59 11:59 Intake Total 372 5222 360 Output Total 3300 Balance 372 1922 360 Weight 79.379 kg 78.5 kg Microbiology Results (Last 24 hours) 08/27/21 21:22 Urine, Void Urine Culture - Final Escherichia Coli 08/27/21 21:49 Blood Blood Culture Gram Stain - Pending 08/27/21 21:49 Blood Blood Culture - Preliminary NO GROWTH TO DATE 08/27/21 21:22 Blood Blood Culture Gram Stain - Pending 08/27/21 21:22 Blood Blood Culture - Preliminary NO GROWTH TO DATE Orders (Last 24 hours) Category Date Time Status Discharge Routine Discharge 08/29/21 09:08 Ordered Azithromycin 500 mg/250 ml [Zithromax 500 MG/ 250 ML Med 08/28/21 22:00 Discontinued NaCl Premix] 500 mg in 250 ml IV Q24H22 Carbamazepine 200 mg [Tegretol 200 MG] Med 08/29/21 12:00 Discontinued 200 mg PO DAILY@1200 Carbamazepine 200 mg [Tegretol 200 MG] Med 08/28/21 20:00 Discontinued 400 mg PO BID@0800,2000 Methylprednis Sod Succ 125 mg* [solu-MEDROL] Med 08/28/21 22:01 Discontinued 125 mg .ROUTE .STK-MED ONE Methylprednis Sod Succ 125 mg* [solu-MEDROL] Med 08/29/21 06:10 Discontinued 125 mg .ROUTE .STK-MED ONE Tizanidine HCl 4 mg [Zanaflex 4 MG] Med 08/28/21 22:00 Discontinued 4 mg PO HS Trazodone HCl 150 mg [Desyrel 150 MG] Med 08/28/21 22:00 Discontinued 400 mg PO HS Patient Care Notes (Last 24 hours) 08/29/21 13:00 (created 08/29/21 13:09) Discharge Note by Kirti Islas Pt. escorted to car and left in care of friend. No c/o pain or SOB. Initialized on 08/29/21 13:09 - END OF NOTE 08/29/21 10:45 (created 08/29/21 12:29) Nursing Note by Kirti Islas Discharge instructions, summary of care, home meds, new prescriptions, follow-up appt. reviewed wit pt; verbalized understanding/teach back. Pt awaiting ride home. IV access d/c'd at this time. Initialized on 08/29/21 12:29 - END OF NOTE 08/29/21 09:19 Case Management Note by Ayesha Lopez [facility] UNABLE TO TAKE PATIENT D/T INSURANCE. [facility] UNABLE TO TAKE PATIENT D/T LOCATION. [facility] UNABLE TO TAKE PATIENT D/T INSURANCE. S/W PATIENT SHE STATES SHE IS FEELING BETTER AND FEELS LIKE SHE WILL BE FINE WITHOUT IT. SHE WAS GIVEN A PULSE OX TO TAKE HOME TO HELP MONITOR OXYGEN LEVELS AT HOME. SHE STATED SHE ALREADY KNEW HOW TO USE ONE. SHE DENIES ANY OTHER NEW NEEDS AT TIME OF DC. SHE PLANS TO RETURN HOME TO HER PRIOR LEVEL OF FUNCTIONING AT TIME OF DC Initialized on 08/29/21 09:19 - END OF NOTE - Vitals & Intake/Output Vital Signs: Vital Signs Temperature 98.0 F 08/29/21 11:21 Pulse Rate 66 08/29/21 11:21 Respiratory Rate 16 08/29/21 11:21 Blood Pressure 161/70 08/29/21 11:21 O2 Sat by Pulse Oximetry 91 L 08/29/21 11:21 Intake & Output: Intake & Output 08/27/21 08/28/21 08/29/21 08/30/21 11:59 11:59 11:59 11:59 Intake Total 372 5222 360 Output Total 3300 Balance 372 1922 360 Weight 79.379 kg 78.5 kg - Lab Result Diagrams: 08/28/21 06:00 08/28/21 06:00 Micro Results-Entire Visit: Microbiology 08/27/21 21:22 Urine Culture - Final Urine, Void Escherichia Coli 08/27/21 21:49 Blood Culture - Preliminary Blood NO GROWTH TO DATE 08/27/21 21:22 Blood Culture - Preliminary Blood NO GROWTH TO DATE - Radiology Exams Ordered Rad Exams-Entire Visit: Radiology Procedures Category Date Time Status CHEST 1 VIEW (PORTABLE) Stat Exams 08/27/21 21:11 Completed - Procedures and Test Procedures and Tests throughout Hospitalization: Therapy Orders & Screens 08/27/21 21:36 Respiratory Therapy Assessment DAILY Comment: 08/28/21 01:41 Oxygen Nasal Cannula 3 lpm Comment: Diagnosis: COPD exacerbation,UTI,generalized weakness Discharge Exam General Appearance: no apparent distress, alert Neurologic Exam: alert, oriented x 3, cooperative, normal mood/affect, nml cerebellar function, sensation nml, No motor deficits Eye Exam: PERRL, EOMI, eyes nml inspection Ears, Nose, Throat Exam: normal ENT inspection, pharynx normal, moist mucous membranes Neck Exam: normal inspection, non-tender, supple, full range of motion Respiratory Exam: normal breath sounds, lungs clear, No respiratory distress Cardiovascular Exam: regular rate/rhythm, normal heart sounds Gastrointestinal/Abdomen Exam: soft, No tenderness, No mass Pelvic Exam: deferred Rectal Exam: deferred Back Exam: normal inspection, normal range of motion, No CVA tenderness, No vertebral tenderness Extremity Exam: normal inspection, normal range of motion Skin Exam: normal color, warm, dry Final Diagnosis/Problem List - Final Discharge Diagnosis/Problem (1) COPD with exacerbation Status: Resolved Code(s): J44.1 - CHRONIC OBSTRUCTIVE PULMONARY DISEASE W (ACUTE) EXACERBATION (2) Generalized weakness Status: Resolved Code(s): R53.1 - WEAKNESS (3) Hyponatremia Status: Resolved Code(s): E87.1 - HYPO-OSMOLALITY AND HYPONATREMIA (4) UTI (urinary tract infection) Status: Resolved Code(s): N39.0 - URINARY TRACT INFECTION, SITE NOT SPECIFIED - Discharge Discharge Date: 08/29/21 Disposition: Home, Self-Care Condition: Stable Prescriptions: New Levofloxacin [Levofloxacin 250MG Tablet] 250 mg PO DAILY 5 Days #5 tab Continue Carbamazepine 200 mg [Tegretol 200 MG] 400 mg PO BID Tizanidine HCl 4 mg [Zanaflex 4 MG] 4 mg PO HS Pregabalin [Lyrica] 225 mg PO BID Duloxetine HCl 30 mg [Cymbalta 30 MG Capsule] 120 mg PO DAILY ARIPiprazole [Aripiprazole] 5 mg PO DAILY Trazodone HCl 50 mg [Desyrel 50 mg] 400 mg PO HS Albuterol Sulfate [Proair Hfa] 2 puffs IH Q6H PRN PRN PRN Reason: Shortness Of Breath Carvedilol 12.5 mg [Coreg 12.5 mg] 25 mg PO BID ALPRAZolam 0.25 MG [xanAX 0.25 MG] 0.25 mg PO TID Budesonide/Formoterol Fumarate [Budesonide-Formoterol 160-4.5] 2 puff IH BID Albuterol/Ipratropium 3ml Neb* [DUONEB 0.5-3 MG/3 ml Neb] 3 ml NEBULIZE Q4H PRN PRN #1 PRN Reason: Wheezing/Chest Congestion Levothyroxine Sodium [Euthyrox] 150 tab PO DAILY Carbamazepine 200 mg [Tegretol 200 MG] 200 mg PO DAILY Spironolactone 25 mg [Aldactone 25 MG] 50 mg PO BID Furosemide 40 mg [Lasix 40 MG] 80 mg PO BID Potassium Chloride 10 meq PO BID Instructions: Exacerbation of COPD (DC) Additional Instructions: FOLLOW UP WITH YOUR PRIMARY CARE PROVIDER Follow up with: KADEN SCHAFER NP [Primary Care Provider] - 09/03/21 9:30 am Forms: Discharge Instructions
== END 2021-08-29 13:00 | disposition home or self-care (01) ==
LOC: ED 20:38 → MED SURG 23:10
PROVIDERS: ADMIT General Practice; ATTEND General Practice
DX: J44.1 Chronic obstructive pulmonary disease with (acute) exacerbation (principal); R53.1 Weakness; E87.1 Hypo-osmolality and hyponatremia; N39.0 Urinary tract infection, site not specified; I11.0 Hypertensive heart disease with heart failure; I50.9 Heart failure, unspecified; Z79.899 Other long term (current) drug therapy; Z20.828 Contact with and (suspected) exposure to other viral communicable diseases; Z99.81 Dependence on supplemental oxygen; Z85.828 Personal history of other malignant neoplasm of skin
CPT/HCPCS: 0241U; 36000; 36415; 71045; 80053; 81015; 83880; 84484; 85025; 85027; 87040; 87077; 87086; 87186; 93005; 93041; 94640; 94760; 96374; 99285; 93268; J0456; J0696; J2930; J7609; A9270-GY; G0378

== ENCOUNTER 2021-09-12 19:55 | Observation (INO) | payer OTHER ==
[2021-09-12] MEDS ORDERED: solu-MEDROL 125 MG, Sterile H2O 10 ml 2 ML IV ONE ×2 (20:06)
[2021-09-12] MEDS ORDERED: DUONEB 0.5-3 MG/3 ml Neb IH ONE ×2 (20:06→20:20)
[2021-09-12] MEDS ORDERED: Zithromax 500 MG/ 250 ML NaCl Premix 500 MG/250 ML IVPB IV STA (20:10)
[2021-09-12] MEDS ORDERED: ROCEPHIN 2 Gm-D5w 50ML BAG** 2 G/50 ML IVPB IV STA (20:10)
[2021-09-12 20:35] LABS: Absolute Neutrophil Ct (ANC) 8.85 x10^3/uL (1.4-6.9); Basophil (Absolute #) 0.11 x10^3/uL (0-0.4); Eosinophil % 3.9 % (0.00-5.0); Eosinophil (Absolute #) 0.47 x10^3/uL (0-0.5); Hemoglobin 12.9 g/dL (12.0-16.0); Lymphocyte (Absolute #) 1.45 x10^3/uL (1.0-4.6); Lymphocytes % 12.1 % (24.0-44.0); Mean Cell Volume 92.4 fL (78-100); Mean Corpuscular Hemoglobin 29.8 pg (26-32); Mean Corpuscular Hgb Concent. 32.3 g/dL (32-36); Mean Platelet Volume 8.7 fL (7.5-11.0); Monocyte (Absolute #) 1.01 x10^3/uL (0.0-1.3); Monocytes % 8.5 % (0.0-12.0); Neutrophil % 74.1 % (36.0-66.0); Platelet Count 252 x10^3/uL (150-450); Red Blood Count 4.33 x10^6/uL (4.1-5.4); Red Cell Distribution Width 14.6 % (11.5-14.0)
[2021-09-12 20:44] LABS: ALBUMIN 3.9 g/dL (3.5-5.0); ALKALINE PHOSPHATASE 113 U/L (38-126); ANION GAP 9.2 MEQ/L (5-15); BLOOD UREA NITROGEN 7 mg/dL (7-17); CHLORIDE 88 mmol/L (98-107); Calcium 8.6 mg/dL (8.4-10.2); Carbon Dioxide 39 mmol/L (22-30); Creatinine 1 0.58 mg/dL (0.52-1.04); EST GLOMERULAR FILTRATION RATE > 60.0 ML/MIN; Glucose 109 mg/dL (74-106); SGOT/AST 24 U/L (14-36); SGPT/ALT 16 U/L (0-35); SODIUM 132 mmol/L (137-145); Total Protein 7.4 g/dL (6.3-8.2)
--- NOTE | 2021-09-12 20:51 | ERPHSYRPT ---
- History of Present Illness Time Seen by Provider: 09/12/21 20:10 Source: patient Exam Limitations: no limitations Patient Subjective Stated Complaint: pt states she has been more SOB for a couple of days. also fell today and back hurts Triage Nursing Assessment: pt ambulated to room wearing her home oxygen, appeared SOB, and was coughing; states she is coughing green stuff up, but states that is her normal. lung sounds wheezes throughout. Physician History: Patient is a 7-year-old female with a history of COPD presents to our ED for evaluation of progressive shortness of breath. Patient states it feels like her typical COPD exacerbation. Patient requires oxygen at home. She normally requires 3 L nasal cannula. Patient has been wearing her oxygen as advised. In spite of her supplemental oxygen patient continues to feel short of breath. No associated chest pain. No nausea vomiting or diaphoresis. No fever. No rash. Patient states she fell today. Patient has mild tenderness to her left buttock. Patient has no back pain. Patient states she does not require an x-ray. Patient states the pain is minimal. Symptoms are mild to moderate in intensity. Patient continues to go short of breath at rest. She voices no other complaints or concerns at this time. Portions of this note were created with voice recognition technology. There may be grammatical, spelling, punctuation or sound alike errors Timing/Duration: day(s) (2 days) Activities at Onset: none Severity of Dyspnea-Max: moderate Severity of Dyspnea-Current: mild Possible Cause: unknown cause Modifying Factors: Improves With: albuterol nebulizer Associated Symptoms: denies symptoms, wheezing, No leg swelling, No tingling face Allergies/Adverse Reactions: No Known Drug Allergies Allergy (Verified 09/12/21 20:27) Home Medications: ARIPiprazole [Aripiprazole] 5 mg PO DAILY 01/11/20 [History] Carbamazepine 200 mg [Tegretol 200 MG] 400 mg PO BID 01/11/20 [History] Duloxetine HCl 30 mg [Cymbalta 30 MG Capsule] 120 mg PO DAILY 01/11/20 [History] Pregabalin [Lyrica] 225 mg PO BID 01/11/20 [History] Tizanidine HCl 4 mg [Zanaflex 4 MG] 4 mg PO HS 01/11/20 [History] Albuterol Sulfate [Proair Hfa] 2 puffs IH Q6H PRN PRN 06/30/20 [History] Trazodone HCl 50 mg [Desyrel 50 mg] 400 mg PO HS 06/30/20 [History] ALPRAZolam 0.25 MG [xanAX 0.25 MG] 0.25 mg PO TID 03/06/21 [History] Budesonide/Formoterol Fumarate [Budesonide-Formoterol 160-4.5] 2 puff IH BID 03/06/21 [History] Carvedilol 12.5 mg [Coreg 12.5 mg] 25 mg PO BID 03/06/21 [History] Levothyroxine Sodium [Euthyrox] 150 tab PO DAILY 07/04/21 [History] Carbamazepine 200 mg [Tegretol 200 MG] 200 mg PO DAILY 08/28/21 [History] Furosemide 40 mg [Lasix 40 MG] 80 mg PO BID 08/28/21 [History] Potassium Chloride 10 meq PO BID 08/28/21 [History] Spironolactone 25 mg [Aldactone 25 MG] 50 mg PO BID 08/28/21 [History] Hx Tetanus, Diphtheria Vaccination/Date Given: No Hx Influenza Vaccination/Date Given: No Hx Pneumococcal Vaccination/Date Given: No Travel Risk - International Travel Have you traveled outside of the country in past 3 weeks: No - Coronavirus Screening Are you exhibiting any of the following symptoms?: Yes Symptoms: Cough: New Onset, Shortness of Breath, Headaches/Body Aches/Fatigue Close contact with a COVID-19 positive Pt in past 14-21 Days: Yes - Vaccine Status Have you recieved a Covid-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: Yes [employer]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 - Review of Systems Constitutional: No Symptoms, No Fever, No Chills Eyes: No Symptoms Ears, Nose, & Throat: No Symptoms Respiratory: No Symptoms, No Cough, No Dyspnea Cardiac: No Symptoms, No Chest Pain, No Edema, No Syncope Abdominal/Gastrointestinal: No Symptoms, No Abdominal Pain, No Nausea, No Vomiting, No Diarrhea Genitourinary Symptoms: No Symptoms, No Dysuria Musculoskeletal: No Symptoms, No Back Pain, No Neck Pain Skin: No Symptoms, No Rash Neurological: No Symptoms, No Dizziness, No Focal Weakness, No Sensory Changes Psychological: No Symptoms Endocrine: No Symptoms Hematologic/Lymphatic: No Symptoms Immunological/Allergic: No Symptoms All Other Systems: Reviewed and Negative - Past Medical History Pertinent Past Medical History: Yes Neurological History: Peripheral Neuropathy ENT History: No Pertinent History Cardiac History: Congestive Heart Failure, Hypertension Respiratory History: Bronchitis, CHF, COPD, Pneumonia Endocrine Medical History: No Pertinent History Musculoskeletal History: No Pertinent History GI Medical History: No Pertinent History History: No Pertinent History Psycho-Social History: No Pertinent History Female Reproductive Disorders: No Pertinent History Other Medical History: pt history recalled, pt sleeping and unable to stay awake to complete admission. - Past Surgical History Past Surgical History: Yes Neuro Surgical History: No Pertinent History Cardiac: No Pertinent History Respiratory: No Pertinent History Gastrointestinal: Appendectomy Genitourinary: No Pertinent History Musculoskeletal: No Pertinent History Female Surgical History: No Pertinent History Other Surgical History: elbow surgery. skin cancer removed - Social History Smoking Status: Current some day smoker How long have you smoked: 20 Exposure to second hand smoke: No Drug Use: none Patient Lives Alone: Yes - Nursing Vital Signs Nursing Vital Signs: Initial Vital Signs Temperature 98.0 F 09/12/21 20:06 Pulse Rate 91 H 09/12/21 20:06 Respiratory Rate 09/12/21 20:06 Blood Pressure 207/85 09/12/21 20:06 O2 Sat by Pulse Oximetry 92 L 09/12/21 20:06 Pain Scale Pain Intensity 8 - Physical Exam General Appearance: no apparent distress, alert Eye Exam: PERRL/EOMI, eyes nml inspection Ears, Nose, Throat Exam: hearing grossly normal, normal ENT inspection, normal pharynx Neck Exam: normal inspection, non-tender, supple Respiratory Exam: respiratory distress (Mild respiratory distress. Patient using accessory muscles to breathe. Audible wheezing), accessory muscle use, wheezing Cardiovascular/Chest Exam: normal heart sounds, regular rate/rhythm Abdominal/Gastrointestinal Exam: soft, No tenderness, No distention, No mass Extremity Exam: non-tender, normal range of motion, normal inspection, no calf tenderness, no pedal edema Neurologic Exam: alert, oriented x 3, cooperative, student education specialist II-XII nml as tested, sensation nml, No motor deficits Skin Exam: normal color, warm, No dry SpO2 Interpretation: normal SpO2: 96 O2 Delivery: Room Air - Course Nursing assessment & vital signs reviewed: Yes EKG Interpreted by Me: RATE (81), Sinus Rhythm, NORMAL AXIS, NORMAL INTERVALS (81) - Radiology Exams Chest X-ray Interpretation: Interpreted by me (Lungs are clear. Normal cardiac silhouette. Intact bony thorax) Ordered Tests: Active Orders 24 hr Category Date Time Status Message Clerk STAT Care 09/12/21 20:06 Active EKG-ER Only STAT Care 09/12/21 20:06 Active IV Insertion STAT Care 09/12/21 20:06 Active Pulse Oximetry (ED) STAT Care 09/12/21 20:06 Active CHEST 1 VIEW (PORTABLE) Stat Exams 09/12/21 20:56 Taken BLOOD CULTURE Stat Lab 09/12/21 20:25 Received CBC W DIFF Stat Lab 09/12/21 20:20 Completed CMP Stat Lab 09/12/21 20:20 Completed TROPONIN Q3H Lab 09/12/21 20:20 Completed TROPONIN Q3H Lab 09/12/21 23:15 Ordered TROPONIN Q3H Lab 09/13/21 02:15 Ordered TROPONIN Q3H Lab 09/13/21 05:15 Ordered TROPONIN Q3H Lab 09/13/21 08:15 Ordered Respiratory Therapy Assessment DAILY RT 09/12/21 20:23 Completed Transfer Order Routine Transfer 09/12/21 Ordered Medication Summary Discontinued Medications Generic Name Dose Route Start Last Admin Trade Name Freq PRN Reason Stop Dose Admin Albuterol/Ipratropium 3 ml 09/12/21 20:06 09/12/21 20:28 Ipratropium/Albuterol Sulfate 3 Ml Ampul.Neb IH 09/12/21 20:07 3 ml STAT ONE Administration Albuterol/Ipratropium Confirm 09/12/21 20:20 Ipratropium/Albuterol Sulfate 3 Ml Ampul.Neb Administered 09/12/21 20:21 Dose 3 ml IH .STK-MED ONE Methylprednisolone Sodium 0 mg 09/12/21 20:06 09/12/21 21:11 Succinate 125 mg/ Sterile IV 09/12/21 20:07 125 mg Water 2 ml STAT ONE Administration Azithromycin 500 mg in 250 mls @ 250 mls/hr 09/12/21 20:10 Zithromax 500 Mg/ 250 Ml Nacl Premix IV 09/12/21 21:09 STAT STA Ceftriaxone Sodium/Dextrose 2 g in 50 mls @ 100 mls/hr 09/12/21 20:10 09/12/21 21:10 Rocephin 2 Gm-D5w 50ml Bag IV 09/12/21 20:39 100 mls/hr STAT STA 100 mls/hr Administration Ceftriaxone Sodium/Dextrose Confirm 09/12/21 21:09 Rocephin 2 Gm-D5w 50ml Bag Administered 09/12/21 21:10 Dose 2 g in 50 mls @ ud IV .STK-MED ONE Methylprednisolone Sodium Succinate Confirm 09/12/21 21:09 Methylprednis Sod Succ 125 Mg/2 Ml Vial Administered 09/12/21 21:10 Dose 125 mg .ROUTE .STK-MED ONE Sterile Water Confirm 09/12/21 21:09 Water For Injection,Sterile 10 Ml Vial Administered 09/12/21 21:10 Dose 10 ml IJ .STK-MED ONE Lab/Rad Data: Laboratory Result Diagrams 09/12/21 20:20 09/12/21 20:20 Laboratory Results 09/12/21 09/12/21 09/12/21 Range/Units 20:25 20:20 20:20 WBC (4.0-10.5) x10^3/uL RBC (4.1-5.4) x10^6/uL Hgb (12.0-16.0) g/dL Hct (35-47) % MCV (78-100) fL MCH (26-32) pg MCHC (32-36) g/dL RDW (11.5-14.0) % Plt Count (150-450) x10^3/uL MPV (7.5-11.0) fL Gran % (36.0-66.0) % Immature Gran % (Auto) (0.00-0.4) % Nucleat RBC Rel Count (0.00-0.1) % Eos # (Auto) (0-0.5) x10^3/uL Immature Gran # (Auto) (0.00-0.03) x10^3u/L Absolute Lymphs (auto) (1.0-4.6) x10^3/uL Absolute Monos (auto) (0.0-1.3) x10^3/uL Absolute Nucleated RBC (0.00-0.01) x10^3u/L Lymphocytes % (24.0-44.0) % Monocytes % (0.0-12.0) % Eosinophils % (0.00-5.0) % Basophils % (0.0-0.4) % Absolute Granulocytes (1.4-6.9) x10^3/uL Basophils # (0-0.4) x10^3/uL Sodium 132 L (137-145) mmol/L Potassium 4.0 (3.5-5.1) mmol/L Chloride 88 L (98-107) mmol/L Carbon Dioxide 39 H (22-30) mmol/L Anion Gap 9.2 (5-15) MEQ/L BUN 7 (7-17) mg/dL Creatinine 0.58 (0.52-1.04) mg/dL Estimated GFR > 60.0 ML/MIN Glucose 109 H (74-106) mg/dL Calcium 8.6 (8.4-10.2) mg/dL Total Bilirubin 0.30 (0.2-1.3) mg/dL AST 24 (14-36) U/L ALT 16 (0-35) U/L Alkaline Phosphatase 113 (38-126) U/L Troponin I < 0.012 (0.000-0.034) ng/mL Serum Total Protein 7.4 (6.3-8.2) g/dL Albumin 3.9 (3.5-5.0) g/dL Influenza Type A Ag NEGATIVE (NEGATIVE) Influenza Type B Ag NEGATIVE (NEGATIVE) RSV (PCR) NEGATIVE (Negative) SARS-CoV-2 (PCR) NEGATIVE (NEGATIVE) 09/12/21 Range/Units 20:20 WBC 12.0 H (4.0-10.5) x10^3/uL RBC 4.33 (4.1-5.4) x10^6/uL Hgb 12.9 (12.0-16.0) g/dL Hct 40.0 (35-47) % MCV 92.4 (78-100) fL MCH 29.8 (26-32) pg MCHC 32.3 (32-36) g/dL RDW 14.6 H (11.5-14.0) % Plt Count 252 (150-450) x10^3/uL MPV 8.7 (7.5-11.0) fL Gran % 74.1 H (36.0-66.0) % Immature Gran % (Auto) 0.5 H (0.00-0.4) % Nucleat RBC Rel Count 0.0 (0.00-0.1) % Eos # (Auto) 0.47 (0-0.5) x10^3/uL Immature Gran # (Auto) 0.06 H (0.00-0.03) x10^3u/L Absolute Lymphs (auto) 1.45 (1.0-4.6) x10^3/uL Absolute Monos (auto) 1.01 (0.0-1.3) x10^3/uL Absolute Nucleated RBC 0.00 (0.00-0.01) x10^3u/L Lymphocytes % 12.1 L (24.0-44.0) % Monocytes % 8.5 (0.0-12.0) % Eosinophils % 3.9 (0.00-5.0) % Basophils % 0.9 (0.0-0.4) % Absolute Granulocytes 8.85 H (1.4-6.9) x10^3/uL Basophils # 0.11 (0-0.4) x10^3/uL Sodium (137-145) mmol/L Potassium (3.5-5.1) mmol/L Chloride (98-107) mmol/L Carbon Dioxide (22-30) mmol/L Anion Gap (5-15) MEQ/L BUN (7-17) mg/dL Creatinine (0.52-1.04) mg/dL Estimated GFR ML/MIN Glucose (74-106) mg/dL Calcium (8.4-10.2) mg/dL Total Bilirubin (0.2-1.3) mg/dL AST (14-36) U/L ALT (0-35) U/L Alkaline Phosphatase (38-126) U/L Troponin I (0.000-0.034) ng/mL Serum Total Protein (6.3-8.2) g/dL Albumin (3.5-5.0) g/dL Influenza Type A Ag (NEGATIVE) Influenza Type B Ag (NEGATIVE) RSV (PCR) (Negative) SARS-CoV-2 (PCR) (NEGATIVE) - Progress Progress: improved Air Movement: good Progress Note: Patient reassessed. Wheezing significantly improved after albuterol nebulizer treatment. Patient no longer in respiratory distress. X-ray negative for pneumonia. Patient experiencing a COPD exacerbation. Solu-Medrol administered. Antibiotics infused. COVID test negative. Will admit for further evaluation and treatment. Plan of care discussed with patient. She agrees to admission at [facility] for further evaluation and treatment. Portions of this note were created with voice recognition technology. There may be grammatical, spelling, punctuation or sound alike errors 09/12/21 21:[address] Coughlin who accepts admission to observation. 09/12/21 21:30 Blood Culture(s) Obtained: Yes Antibiotics given: Yes Discussed with : Bladimir Will see patient in: hospital (observation) Counseled pt/family regarding: diagnosis - Departure Departure Disposition: Observation Clinical Impression: COPD exacerbation Condition: Stable Critical Care Time: No
[2021-09-12 21:06] LABS: INFLUENZA A NEGATIVE (NEGATIVE); INFLUENZA B NEGATIVE (NEGATIVE); RESPIRATORY SYNCTIAL VIRUS NEGATIVE (Negative); SARS-CoV-2 Xpert Express NEGATIVE (NEGATIVE)
[2021-09-12] MEDS ORDERED: Sterile H2O 10 ml IJ ONE (21:09)
[2021-09-12] MEDS ORDERED: ROCEPHIN 2 Gm-D5w 50ML BAG** 2 G/50 ML IVPB IV ONE (21:09)
[2021-09-12] MEDS ORDERED: solu-MEDROL ONE (21:09)
[2021-09-12] MEDS ORDERED: Zithromax 500 MG/ 250 ML NaCl Premix 500 MG/250 ML IVPB IV ONE (21:30)
[2021-09-13] MEDS ORDERED: solu-MEDROL 60 MG, Sterile H2O 10 ml 2 ML IV SCH ×2
[2021-09-13 02:28] LABS: Hemoglobin 12.8 g/dL (12.0-16.0); Mean Corpuscular Hemoglobin 29.4 pg (26-32); Mean Platelet Volume 8.6 fL (7.5-11.0); Platelet Count 241 x10^3/uL (150-450); Red Blood Count 4.35 x10^6/uL (4.1-5.4); Red Cell Distribution Width 14.5 % (11.5-14.0); White Blood Count 10.2 x10^3/uL (4.0-10.5)
[2021-09-13] MEDS ORDERED: DUONEB 0.5-3 MG/3 ml Neb IH ONE (02:41)
[2021-09-13] MEDS: DUONEB 0.5-3 MG/3 ml Neb IH SCH ×6 (02:47→23:03)
[2021-09-13 03:03] LABS: ALBUMIN 3.6 g/dL (3.5-5.0); ALKALINE PHOSPHATASE 111 U/L (38-126); ANION GAP 10.5 MEQ/L (5-15); BLOOD UREA NITROGEN 6 mg/dL (7-17); CHLORIDE 89 mmol/L (98-107); Calcium 8.6 mg/dL (8.4-10.2); Carbon Dioxide 35 mmol/L (22-30); Creatinine 1 0.48 mg/dL (0.52-1.04); EST GLOMERULAR FILTRATION RATE > 60.0 ML/MIN; Glucose 142 mg/dL (74-106); Potassium 4.5 mmol/L (3.5-5.1); SGOT/AST 25 U/L (14-36); SGPT/ALT 18 U/L (0-35); SODIUM 130 mmol/L (137-145); Total Protein 6.8 g/dL (6.3-8.2)
[2021-09-13] MEDS ORDERED: solu-MEDROL ONE (03:48)
[2021-09-13] MEDS: solu-MEDROL 60 MG, Sterile H2O 10 ml 2 ML IV SCH ×8 (03:53→17:15)
[2021-09-13] MEDS: Advair Hfa 230/21 Mcg COMMON CANISTER IH SCH ×2 (07:01→18:36)
--- NOTE | 2021-09-13 08:42 | XRAY ---
Indication: Short of breath and cough. COPD. Comparison: August 27, 2021 Portable apical lordotic chest remains hyperinflated and clear. Heart not enlarged. No new/acute findings.
[2021-09-13] MEDS ORDERED: Zanaflex 4 MG PO PRN (09:44)
[2021-09-13] MEDS ORDERED: VENTOLIN COMMON CANISTER IH PRN (09:44)
[2021-09-13] MEDS ORDERED: NON-FORMULARY ITEM (Hydroxychloroquine Sulfate [Hydroxychloroquine Sulfate] 200 MG Tablet) PO SCH (10:00)
[2021-09-13] MEDS ORDERED: NON-FORMULARY ITEM (Pregabalin [Lyrica] 300 MG Capsule) PO SCH (10:00)
[2021-09-13] MEDS ORDERED: NON-FORMULARY ITEM (Aripiprazole [Aripiprazole] 5 MG Tablet) PO SCH (10:00)
[2021-09-13] MEDS ORDERED: NON-FORMULARY ITEM (Potassium Chloride [Potassium Chloride] 10 MEQ Tablet.Er) PO SCH (10:00)
[2021-09-13] MEDS: Lotensin PO SCH (10:16)
[2021-09-13] MEDS: LYRICA 150MG PO SCH ×2 (10:17→22:02)
[2021-09-13] MEDS: xanAX 0.25 MG PO SCH ×3 (10:17→22:03)
[2021-09-13] MEDS: Lasix 40 MG PO SCH ×2 (10:17→17:15)
[2021-09-13] MEDS: SYNTHROID 150 MCG PO SCH (10:18)
[2021-09-13] MEDS: COREG 12.5 MG PO SCH ×2 (10:18→22:03)
[2021-09-13] MEDS: Klor Con PO SCH ×2 (10:18→22:04)
[2021-09-13] MEDS: Abilify 10 MG PO SCH (10:18)
[2021-09-13] MEDS: Cymbalta 30 MG Capsule PO SCH (10:18)
[2021-09-13] MEDS: NON-FORMULARY ITEM PO SCH ×2 (10:20→22:04)
[2021-09-13] MEDS: Tegretol 200 MG PO SCH ×2 (12:20→22:05)
[2021-09-13] MEDS: Zithromax 500 MG/ 250 ML NaCl Premix 500 MG/250 ML IVPB IV SCH (22:02)
[2021-09-13] MEDS: DESYREL 50 MG PO SCH (22:03)
[2021-09-14] MEDS: ROCEPHIN 1 Gm-D5w 50 ml Bag** 1 G/50 ML IVPB IV SCH ×2 (00:01→20:57)
[2021-09-14] MEDS: solu-MEDROL 60 MG, Sterile H2O 10 ml 2 ML IV SCH ×6 (00:01→12:58)
[2021-09-14] MEDS: DUONEB 0.5-3 MG/3 ml Neb IH SCH ×6 (03:02→22:53)
[2021-09-14 05:33] LABS: Absolute Neutrophil Ct (ANC) 9.96 x10^3/uL (1.4-6.9); Basophil (Absolute #) 0.02 x10^3/uL (0-0.4); Eosinophil (Absolute #) 0 x10^3/uL (0-0.5); Hematocrit 37.2 % (35-47); Hemoglobin 12.1 g/dL (12.0-16.0); Lymphocyte (Absolute #) 0.55 x10^3/uL (1.0-4.6); Mean Cell Volume 89.6 fL (78-100); Mean Corpuscular Hemoglobin 29.2 pg (26-32); Mean Corpuscular Hgb Concent. 32.5 g/dL (32-36); Mean Platelet Volume 8.7 fL (7.5-11.0); Monocyte (Absolute #) 0.34 x10^3/uL (0.0-1.3); Monocytes % 3.1 % (0.0-12.0); Neutrophil % 91.2 % (36.0-66.0); Platelet Count 239 x10^3/uL (150-450); Red Blood Count 4.15 x10^6/uL (4.1-5.4); Red Cell Distribution Width 14.4 % (11.5-14.0); White Blood Count 10.9 x10^3/uL (4.0-10.5)
[2021-09-14] MEDS ORDERED: solu-MEDROL ONE (05:42)
[2021-09-14 05:52] LABS: ALBUMIN 3.4 g/dL (3.5-5.0); ALKALINE PHOSPHATASE 91 U/L (38-126); ANION GAP 7.1 MEQ/L (5-15); BLOOD UREA NITROGEN 14 mg/dL (7-17); CHLORIDE 88 mmol/L (98-107); Calcium 8.5 mg/dL (8.4-10.2); Carbon Dioxide 36 mmol/L (22-30); Creatinine 1 0.59 mg/dL (0.52-1.04); EST GLOMERULAR FILTRATION RATE > 60.0 ML/MIN; Glucose 117 mg/dL (74-106); SGOT/AST 23 U/L (14-36); SGPT/ALT 16 U/L (0-35); SODIUM 128 mmol/L (137-145); Total Protein 6.7 g/dL (6.3-8.2)
[2021-09-14] MEDS: Advair Hfa 230/21 Mcg COMMON CANISTER IH SCH ×2 (07:13→18:51)
[2021-09-14 07:25] LABS: Slide Review 1 YES
[2021-09-14] MEDS: Tegretol 200 MG PO SCH ×3 (08:20→21:03)
[2021-09-14] MEDS: Abilify 10 MG PO SCH (08:54)
[2021-09-14] MEDS: Cymbalta 30 MG Capsule PO SCH (08:54)
[2021-09-14] MEDS: COREG 12.5 MG PO SCH ×2 (08:54→20:58)
[2021-09-14] MEDS: LYRICA 150MG PO SCH ×2 (08:54→20:57)
[2021-09-14] MEDS: SYNTHROID 150 MCG PO SCH (08:54)
[2021-09-14] MEDS: Lasix 40 MG PO SCH ×2 (08:55→17:14)
[2021-09-14] MEDS: Klor Con PO SCH ×2 (08:55→20:57)
[2021-09-14] MEDS: Lotensin PO SCH (08:56)
[2021-09-14] MEDS: NON-FORMULARY ITEM PO SCH ×2 (08:56→21:01)
[2021-09-14] MEDS: xanAX 0.25 MG PO SCH ×3 (08:57→20:58)
--- NOTE | 2021-09-14 12:07 | PCM.NOTE ---
Date and Time: 09/14/21 1203 Subjective Assessment: Pt feeling better. On 5L oxymizer; home O2 is 3-4L NC. Ranulfo po. Would really like to d/c to home tomorrow. - Review of Systems Constitutional: No Fever Respiratory: Short Of Breath Objective Exam General Appearance: no apparent distress, alert, other (sitting up in chair) Neurologic Exam: oriented x 3, cooperative Skin Exam: normal color, warm, dry, No rash Eye Exam: eyes nml inspection Ears, Nose, Throat Exam: moist mucous membranes Neck Exam: normal inspection, No lymphadenopathy, No thyromegaly Respiratory Exam: diminished breath sounds (fair air exchange), wheezing (scattered minor), No crackles/rales, No rhonchi Cardiovascular Exam: regular rate/rhythm, normal heart sounds, No murmur Gastrointestinal/Abdomen Exam: soft, normal bowel sounds, No tenderness, No distention, No mass, No guarding, No rebound Extremity Exam: normal inspection, No pedal edema, No swelling Back Exam: normal inspection, No rash OBJECTIVE DATA Vital Signs: Vital Signs - 24 hr Temp Pulse Resp BP Pulse Ox 09/14/21 10:41 74 18 89 L 09/14/21 08:00 97.5 F 69 15 175/81 89 L 09/14/21 07:13 76 20 89 L 09/14/21 03:48 97.7 F 72 17 135/63 89 L 09/14/21 03:02 73 16 89 L 09/13/21 23:32 98.0 F 105 H 20 121/70 90 L 09/13/21 23:03 102 H 22 92 L 09/13/21 19:40 97.8 F 71 20 150/70 90 L 09/13/21 18:26 73 18 93 L 09/13/21 16:00 97.9 F 75 24 177/81 88 L 09/13/21 15:06 71 18 90 L Pain Assessment - Last Documented Pain Intensity 0 Intake and Output: Intake & Output 09/12/21 09/13/21 09/14/21 09/15/21 11:59 11:59 11:59 11:59 Intake Total 600 1360 Output Total 600 550 Balance 0 810 Weight 79.5 kg 77.7 kg Lab Results: Lab Results-Last 24 Hours 09/13/21 09/13/21 09/13/21 Range/Units 02:00 12:55 16:18 WBC (4.0-10.5) x10^3/uL RBC (4.1-5.4) x10^6/uL Hgb (12.0-16.0) g/dL Hct (35-47) % MCV (78-100) fL MCH (26-32) pg MCHC (32-36) g/dL RDW (11.5-14.0) % Plt Count (150-450) x10^3/uL MPV (7.5-11.0) fL Gran % (36.0-66.0) % Immature Gran % (Auto) (0.00-0.4) % Nucleat RBC Rel Count (0.00-0.1) % Eos # (Auto) (0-0.5) x10^3/uL Immature Gran # (Auto) (0.00-0.03) x10^3u/L Absolute Lymphs (auto) (1.0-4.6) x10^3/uL Absolute Monos (auto) (0.0-1.3) x10^3/uL Absolute Nucleated RBC (0.00-0.01) x10^3u/L Lymphocytes % (24.0-44.0) % Monocytes % (0.0-12.0) % Eosinophils % (0.00-5.0) % Basophils % (0.0-0.4) % Absolute Granulocytes (1.4-6.9) x10^3/uL Basophils # (0-0.4) x10^3/uL Sodium (137-145) mmol/L Potassium (3.5-5.1) mmol/L Chloride (98-107) mmol/L Carbon Dioxide (22-30) mmol/L Anion Gap (5-15) MEQ/L BUN (7-17) mg/dL Creatinine (0.52-1.04) mg/dL Estimated GFR ML/MIN Glucose (74-106) mg/dL POC Glucometer 155 H 130 H (74 to 106) mg/dL Hemoglobin A1c 5.33 (4.5-6.0) % Calcium (8.4-10.2) mg/dL Total Bilirubin (0.2-1.3) mg/dL AST (14-36) U/L ALT (0-35) U/L Alkaline Phosphatase (38-126) U/L Serum Total Protein (6.3-8.2) g/dL Albumin (3.5-5.0) g/dL Slides for Path Review 09/13/21 09/14/21 09/14/21 Range/Units 21:05 05:08 05:08 WBC 10.9 H (4.0-10.5) x10^3/uL RBC 4.15 (4.1-5.4) x10^6/uL Hgb 12.1 (12.0-16.0) g/dL Hct 37.2 (35-47) % MCV 89.6 (78-100) fL MCH 29.2 (26-32) pg MCHC 32.5 (32-36) g/dL RDW 14.4 H (11.5-14.0) % Plt Count 239 (150-450) x10^3/uL MPV 8.7 (7.5-11.0) fL Gran % 91.2 H (36.0-66.0) % Immature Gran % (Auto) 0.5 H (0.00-0.4) % Nucleat RBC Rel Count 0.0 (0.00-0.1) % Eos # (Auto) 0 (0-0.5) x10^3/uL Immature Gran # (Auto) 0.06 H (0.00-0.03) x10^3u/L Absolute Lymphs (auto) 0.55 L (1.0-4.6) x10^3/uL Absolute Monos (auto) 0.34 (0.0-1.3) x10^3/uL Absolute Nucleated RBC 0.00 (0.00-0.01) x10^3u/L Lymphocytes % 5.0 L (24.0-44.0) % Monocytes % 3.1 (0.0-12.0) % Eosinophils % 0.0 (0.00-5.0) % Basophils % 0.2 (0.0-0.4) % Absolute Granulocytes 9.96 H (1.4-6.9) x10^3/uL Basophils # 0.02 (0-0.4) x10^3/uL Sodium 128 L (137-145) mmol/L Potassium 4.0 (3.5-5.1) mmol/L Chloride 88 L (98-107) mmol/L Carbon Dioxide 36 H (22-30) mmol/L Anion Gap 7.1 (5-15) MEQ/L BUN 14 (7-17) mg/dL Creatinine 0.59 (0.52-1.04) mg/dL Estimated GFR > 60.0 ML/MIN Glucose 117 H (74-106) mg/dL POC Glucometer 144 H (74 to 106) mg/dL Hemoglobin A1c (4.5-6.0) % Calcium 8.5 (8.4-10.2) mg/dL Total Bilirubin 0.30 (0.2-1.3) mg/dL AST 23 (14-36) U/L ALT 16 (0-35) U/L Alkaline Phosphatase 91 (38-126) U/L Serum Total Protein 6.7 (6.3-8.2) g/dL Albumin 3.4 L (3.5-5.0) g/dL Slides for Path Review YES 09/14/21 Range/Units 08:17 WBC (4.0-10.5) x10^3/uL RBC (4.1-5.4) x10^6/uL Hgb (12.0-16.0) g/dL Hct (35-47) % MCV (78-100) fL MCH (26-32) pg MCHC (32-36) g/dL RDW (11.5-14.0) % Plt Count (150-450) x10^3/uL MPV (7.5-11.0) fL Gran % (36.0-66.0) % Immature Gran % (Auto) (0.00-0.4) % Nucleat RBC Rel Count (0.00-0.1) % Eos # (Auto) (0-0.5) x10^3/uL Immature Gran # (Auto) (0.00-0.03) x10^3u/L Absolute Lymphs (auto) (1.0-4.6) x10^3/uL Absolute Monos (auto) (0.0-1.3) x10^3/uL Absolute Nucleated RBC (0.00-0.01) x10^3u/L Lymphocytes % (24.0-44.0) % Monocytes % (0.0-12.0) % Eosinophils % (0.00-5.0) % Basophils % (0.0-0.4) % Absolute Granulocytes (1.4-6.9) x10^3/uL Basophils # (0-0.4) x10^3/uL Sodium (137-145) mmol/L Potassium (3.5-5.1) mmol/L Chloride (98-107) mmol/L Carbon Dioxide (22-30) mmol/L Anion Gap (5-15) MEQ/L BUN (7-17) mg/dL Creatinine (0.52-1.04) mg/dL Estimated GFR ML/MIN Glucose (74-106) mg/dL POC Glucometer 135 H (74 to 106) mg/dL Hemoglobin A1c (4.5-6.0) % Calcium (8.4-10.2) mg/dL Total Bilirubin (0.2-1.3) mg/dL AST (14-36) U/L ALT (0-35) U/L Alkaline Phosphatase (38-126) U/L Serum Total Protein (6.3-8.2) g/dL Albumin (3.5-5.0) g/dL Slides for Path Review Radiology Exams: Radiology Procedures Category Date Time Status CHEST 1 VIEW (PORTABLE) Stat Exams 09/12/21 20:56 Completed Assessment/Plan (1) COPD exacerbation Current Visit: Yes Status: Acute Assessment & Plan: improved. Would have a goal of discharging her tomorrow on po antibiotics, steroids, and nicotine patches. Code(s): J44.1 - CHRONIC OBSTRUCTIVE PULMONARY DISEASE W (ACUTE) EXACERBATION (2) Acute on chronic respiratory failure with hypoxemia Current Visit: Yes Status: Chronic Assessment & Plan: increased O2 requirement here. Code(s): J96.21 - ACUTE AND CHRONIC RESPIRATORY FAILURE WITH HYPOXIA (3) Depression Current Visit: Yes Status: Acute Qualifiers: Depression Type: major depressive disorder Major depression recurrence: unspecified whether recurrent Active/Remission status: remission status unspecified Qualified Code(s): F32.9 - Major depressive disorder, single episode, unspecified Assessment & Plan: Pt's mental status is improved over what Dr. Coughlin reported yesterday. I think overall she is just feeling better. Code(s): F32.A - DEPRESSION, UNSPECIFIED (4) Tobacco abuse Current Visit: Yes Status: Chronic Assessment & Plan: Pt agrees she needs to quit, patches here and home on patches. Code(s): Z72.0 - TOBACCO USE (5) Tobacco abuse counseling Current Visit: Yes Status: Acute Code(s): Z71.6 - TOBACCO ABUSE COUNSELING
[2021-09-14] MEDS: NICODERM CQ 14 MG TOP SCH (12:46)
[2021-09-14] MEDS: DESYREL 50 MG PO SCH (20:58)
[2021-09-14] MEDS: solu-MEDROL 40 MG, Sterile H2O 10 ml 1 ML IV SCH ×2 (20:58)
[2021-09-14] MEDS: Zithromax 500 MG/ 250 ML NaCl Premix 500 MG/250 ML IVPB IV SCH (20:59)
[2021-09-15] MEDS: DUONEB 0.5-3 MG/3 ml Neb IH SCH ×4 (02:47→15:30)
[2021-09-15] MEDS: Advair Hfa 230/21 Mcg COMMON CANISTER IH SCH (06:47)
[2021-09-15] MEDS: Tegretol 200 MG PO SCH ×2 (08:24→13:39)
[2021-09-15] MEDS: SYNTHROID 150 MCG PO SCH (08:26)
[2021-09-15] MEDS: Klor Con PO SCH (08:27)
[2021-09-15] MEDS: Lotensin PO SCH (08:27)
[2021-09-15] MEDS: LYRICA 150MG PO SCH (08:27)
[2021-09-15] MEDS: Abilify 10 MG PO SCH (08:27)
[2021-09-15] MEDS: Lasix 40 MG PO SCH (08:27)
[2021-09-15] MEDS: xanAX 0.25 MG PO SCH (08:28)
[2021-09-15] MEDS: COREG 12.5 MG PO SCH (08:28)
[2021-09-15] MEDS: NON-FORMULARY ITEM PO SCH (08:29)
[2021-09-15] MEDS: Cymbalta 30 MG Capsule PO SCH (09:45)
[2021-09-15] MEDS: solu-MEDROL 40 MG, Sterile H2O 10 ml 1 ML IV SCH ×2 (09:46)
--- NOTE | 2021-09-15 09:56 | PCM.DS ---
Discharge Summary Date of Admission: 09/12/21 21:23 Admitting Physician: RASHEEDA COUGHLIN Consults: Consults on Case 09/13/21 08:46 Consult Pulmonology ROUTINE Primary Care Provider: KADEN SCHAFER NP Allergies Allergies No Known Drug Allergies Allergy (Verified 09/12/21 20:27) Hospital Summary - Hospital Course Hospital Course: Pt is a 61 yo female pt of Dr. Coughlin with Hx COPD, CHF, and HTN who was admitted through ER wtih COPD exacerbation and hypoxemia. She was started on zithromax and rocephin (today is day #3) and IV steroid. The steroids have been weaning down and she is tolerating that well. She is a smoker, < 1 PPD, and has been doing well on 14mg nicoderm patches. Will send her home with same. Home on augmentin x 4d (to finish 7d total abx), po prednisone x 7d, and nicotine patches x 14d (f/u with Dr. Coughlin regarding decreasing patch strength moving forward). F/u with Dr. Coughlin in approx 1 week. - Vitals & Intake/Output Vital Signs: Vital Signs Temperature 97.5 F 09/15/21 07:00 Pulse Rate 69 09/15/21 07:00 Respiratory Rate 18 09/15/21 07:00 Blood Pressure 155/79 09/15/21 07:00 O2 Sat by Pulse Oximetry 98 09/15/21 07:00 Intake & Output: Intake & Output 09/12/21 09/13/21 09/14/21 09/15/21 11:59 11:59 11:59 11:59 Intake Total 600 1360 1440 Output Total 600 550 600 Balance 0 810 840 Weight 79.5 kg 77.7 kg 78 kg - Lab Result Diagrams: 09/14/21 05:08 09/14/21 05:08 Lab Results-Last 24 Hrs: Lab Results-Last 24 Hours 09/14/21 09/14/21 09/14/21 Range/Units 12:37 16:13 21:03 POC Glucometer 109 H 104 103 (74 to 106) mg/dL 09/15/21 Range/Units 06:55 POC Glucometer 95 (74 to 106) mg/dL Micro Results-Entire Visit: Microbiology 09/12/21 20:25 Blood Culture - Preliminary Blood NO GROWTH TO DATE 09/12/21 20:20 Blood Culture - Preliminary Blood NO GROWTH TO DATE Accuchecks Date 09/15/21 Time 06:55 - Procedures and Test Procedures and Tests throughout Hospitalization: Therapy Orders & Screens 09/12/21 20:23 Respiratory Therapy Assessment DAILY Comment: 09/12/21 22:26 Oxygen Nasal Cannula 3 lpm Comment: Diagnosis: COPD exacerbation, Hypoxia 09/13/21 00:07 RT Screen per Nursing Assess ONCE Comment: Protocol Order Physician Instructions: Greater than 3 points order RT Admission Screen Reason For Exam: Triggered on Admission Diagnosis: COPD exacerbation, Hypoxia Diagnosis: COPD exacerbation, Hypoxia Pneumonia: No Home O2: Yes Asthma: No CHF: Yes Home CPAP/BIPAP: No Home Nebs/MDI: Yes Total Points: 13 Smoking Cessation Education ONCE Comment: Diagnosis: COPD exacerbation, Hypoxia Smoking Status: Current some day smoker How long have you smoked: 20 Have you smoked in the past 12 months: Yes Approximately how many cigarettes per day: 3-4 Do you dip or chew tobacco: No Discharge Exam General Appearance: no apparent distress, alert Neurologic Exam: oriented x 3, cooperative Eye Exam: eyes nml inspection Ears, Nose, Throat Exam: moist mucous membranes Neck Exam: normal inspection Respiratory Exam: diminished breath sounds (fair to good air exchange), wheezing (expiratory), No crackles/rales, No rhonchi Cardiovascular Exam: regular rate/rhythm, normal heart sounds, No murmur Gastrointestinal/Abdomen Exam: soft, normal bowel sounds, No tenderness, No distention, No mass, No guarding, No rebound Back Exam: normal inspection, No rash Extremity Exam: normal inspection, No pedal edema, No swelling Skin Exam: normal color, warm, dry, No rash Final Diagnosis/Problem List - Final Discharge Diagnosis/Problem (1) COPD exacerbation Current Visit: Yes Status: Acute Assessment & Plan: Doing much better, discharge to home today. On 5L NC currently, which is slightly above her baseline. Code(s): J44.1 - CHRONIC OBSTRUCTIVE PULMONARY DISEASE W (ACUTE) EXACERBATION (2) Acute on chronic respiratory failure with hypoxemia Current Visit: Yes Status: Chronic Code(s): J96.21 - ACUTE AND CHRONIC RESPIRATORY FAILURE WITH HYPOXIA (3) Depression Current Visit: Yes Status: Chronic Code(s): F32.A - DEPRESSION, UNSPECIFIED (4) Tobacco abuse Current Visit: Yes Status: Chronic Assessment & Plan: home on nicotine patch; she would like to quit smoking. Discussed that COPD itself will worsen over time, but stopping the tobacco will still be beneficial. Code(s): Z72.0 - TOBACCO USE (5) Tobacco abuse counseling Current Visit: Yes Status: Acute Code(s): Z71.6 - TOBACCO ABUSE COUNSELING - Discharge Disposition: Home, Self-Care Condition: Stable Prescriptions: New Lactobacillus Acidophilus [Acidophilus TABLET] 1 tab PO TID PRN #21 tablet Amox Tr/Potass Clav. 875 mg [Augmentin 875-125 Tablet] 875 mg PO BID 4 Days #8 tablet Prednisone 20 mg [Deltasone 20 mg] 20 mg PO DAILY 7 Days #17 tablet Nicotine 14 mg [Nicoderm Cq 14 mg] 14 mg TOP Q24H 14 Days #14 patch Continue Carbamazepine 200 mg [Tegretol 200 MG] 400 mg PO BID Tizanidine HCl 4 mg [Zanaflex 4 MG] 4 mg PO Q8HPRN PRN PRN Reason: Muscle Spasms Pregabalin [Lyrica] 300 mg PO BID Duloxetine HCl 30 mg [Cymbalta 30 MG Capsule] 120 mg PO DAILY ARIPiprazole [Aripiprazole] 5 mg PO DAILY Trazodone HCl 50 mg [Desyrel 50 mg] 200 mg PO HS Albuterol Sulfate [Proair Hfa] 2 puffs IH Q6H PRN PRN PRN Reason: Shortness Of Breath Carvedilol 12.5 mg [Coreg 12.5 mg] 12.5 mg PO BID ALPRAZolam 0.25 MG [xanAX 0.25 MG] 0.25 mg PO TID Budesonide/Formoterol Fumarate [Budesonide-Formoterol 160-4.5] 2 puff IH BID Levothyroxine Sodium [Euthyrox] 150 tab PO DAILY Carbamazepine 200 mg [Tegretol 200 MG] 200 mg PO LUNCH Furosemide 40 mg [Lasix 40 MG] 80 mg PO BID Potassium Chloride 10 meq PO BID Benazepril HCl [Lotensin] 40 mg PO DAILY Albuterol/Ipratropium 3ml Neb* [DUONEB 0.5-3 MG/3 ml Neb] 3 ml NEBULIZE Q6H PRN PRN PRN Reason: Wheezing/Chest Congestion Hydroxychloroquine Sulfate 200 mg PO BID Follow up with: KADEN SCHAFER NP [Primary Care Provider] - 09/19/21 9:30 am (send records to office) LYNDA AYOUB [ACTIVE STAFF] - 09/25/21 4:00 pm (AT BRAVE )
[2021-09-15] MEDS: NICODERM CQ 14 MG TOP SCH (11:01)
[2021-09-15 16:13] VITALS: BP 148/78; PULSE 70; O2SAT 91
--- NOTE | 2021-09-16 09:38 | HP ---
CHIEF COMPLAINT: Shortness of breath. HISTORY OF PRESENT ILLNESS: The patient is a 61-year-old white female who was evaluated initially in the emergency room and felt to have an acute exacerbation of chronic obstructive pulmonary disease and admitted to the hospital. She is currently on 3 liters per nasal cannula at home. The patient reports she was up to 4 liters at times to keep her oxygen saturations above 90%. The patient reported that she had fallen recently. The patient was quite tearful on evaluation in the hospital. The patient was oriented to place. She could not tell me the date or the year but could tell me the month and the president. PAST MEDICAL/SURGICAL HISTORY: Chronic obstructive pulmonary disease with hypoxia. She also has a previous history of congestive heart failure. She apparently has home oxygen. MEDICATIONS: The patient's home medication list includes: Aripiprazole 5 mg a day, Tegretol 200 mg twice a day, Cymbalta 120 mg a day, Lyrica 225 mg twice a day, Zanaflex 4 mg a day, albuterol PRN basis, trazodone 400 mg at night, alprazolam 0.25 mg t.i.d., budesonide/formoterol inhaler, carvedilol 25 mg b.i.d., levothyroxine 150 mg a day. She does need additional Tegretol 200 mg at lunch, Lasix 80 mg twice a day, potassium 10 mEq t.i.d., spironolactone 50 mg b.i.d. ALLERGIES: NKDA. PHYSICAL EXAMINATION: The patient's initial assessment showed her vital signs to show temperature 98.0F, pulse 91, respiratory rate 22 and blood pressure 207/85. O2 saturation 91% on supplemental oxygen. HEENT: Normocephalic, atraumatic. She is wearing oxygen per nasal cannula. Oropharynx is slightly dry. NECK: Supple without lymphadenopathy, thyromegaly or JVD. CHEST: Revealed diffuse air movements bilaterally. The chest is otherwise clear. HEART: Regular rate and rhythm without significant murmurs, rubs or gallops heard. ABDOMEN: Soft. No palpable masses. EXTREMITIES: Without cyanosis, clubbing or edema. NEUROLOGIC: The patient has orientation trouble to time and date. Again, she is quite tearful. There are no neurologic deficits noted. LAB DATA AND TESTS: The patient's evaluation in the emergency room revealed laboratory data showing her hemoglobin to be 12.9, white count 12.0, PLT count 252,000. Her sodium was slightly low at 132, BUN 7, creatinine 0.58. Her troponin was less than 0.012. She was negative for respiratory syncytial virus, COVID and influenza. She had hemoglobin A1C monitored at 5.33. She had x-ray performed which showed no acute findings. ASSESSMENT: A patient with chronic obstructive pulmonary disease exacerbation admitted to the hospital. She has been placed on Rocephin and Zithromax initially. She is receiving Solu-Medrol as well as nebulizer treatments. We have looked over her medicine list as she is not a patient that I am familiar with so kept her current medicine list the same. She has seen Dr. Isaias Thompson before for operation specialist and we asked to have him follow her in the hospital as well to optimize her medical management.
== END 2021-09-15 16:16 | disposition home or self-care (01) ==
LOC: ED 19:55 → MED SURG 21:23
PROVIDERS: ADMIT Family Medicine; ATTEND Family Medicine
DX: J44.1 Chronic obstructive pulmonary disease with (acute) exacerbation (principal); J96.21 Acute and chronic respiratory failure with hypoxia; F32.A Depression, unspecified; E87.1 Hypo-osmolality and hyponatremia; I11.0 Hypertensive heart disease with heart failure; I50.9 Heart failure, unspecified; W18.30XA Fall on same level, unspecified, initial encounter; Z72.0 Tobacco use; Z71.6 Tobacco abuse counseling; Z79.899 Other long term (current) drug therapy; Z99.81 Dependence on supplemental oxygen; Z85.828 Personal history of other malignant neoplasm of skin; Z20.828 Contact with and (suspected) exposure to other viral communicable diseases
CPT/HCPCS: 0241U; 36000; 36415; 71045; 80053; 82947; 83036; 84484; 85025; 85027; 87040; 93005; 93041; 93268; 94640; 94760; 94762; 96374; 99285; G0378; J0456; J0696; J2920; J2930; A9270-GY

== ENCOUNTER 2021-10-05 17:13 | Observation (INO) | payer OTHER ==
[2021-10-05] MEDS ORDERED: DUONEB 0.5-3 MG/3 ml Neb IH ONE ×2 (17:49→17:58)
[2021-10-05] MEDS ORDERED: Lasix 40 MG/4 ML IV ONE (17:49)
[2021-10-05] MEDS ORDERED: Lasix 40 MG/4 ML ONE (18:02)
[2021-10-05 18:08] LABS: Absolute Neutrophil Ct (ANC) 6.51 x10^3/uL (1.4-6.9); Basophil (Absolute #) 0.08 x10^3/uL (0-0.4); Eosinophil % 6.1 % (0.00-5.0); Eosinophil (Absolute #) 0.58 x10^3/uL (0-0.5); Lymphocyte (Absolute #) 1.07 x10^3/uL (1.0-4.6); Lymphocytes % 11.3 % (24.0-44.0); Mean Cell Volume 91.6 fL (78-100); Mean Corpuscular Hemoglobin 29.7 pg (26-32); Mean Corpuscular Hgb Concent. 32.4 g/dL (32-36); Monocyte (Absolute #) 1.16 x10^3/uL (0.0-1.3); Monocytes % 12.3 % (0.0-12.0); Neutrophil % 69.1 % (36.0-66.0); Platelet Count 243 x10^3/uL (150-450); Red Blood Count 4.04 x10^6/uL (4.1-5.4); Red Cell Distribution Width 13.8 % (11.5-14.0); White Blood Count 9.4 x10^3/uL (4.0-10.5)
[2021-10-05 18:13] LABS: A-aADO2 132; ABG POTASSIUM 3.7 (3.5-5.1); ARTERIAL BLD GAS O2 SATURATION 96.5 % (95-100); ARTERIAL BLOOD GAS BASE EXCESS 10.1 (-2.0-2.0); ARTERIAL BLOOD GAS FIO2 40 %; ARTERIAL BLOOD GAS PO2 76 mmHg (75-100); ARTERIAL BLOOD GAS pH 7.39 (7.35-7.45); HCO3- 37.5 (22-28); Lactic Acid 0.4 (0.4-2.0); Methhemoglobin 0.7 % (1.4-1.5)
[2021-10-05 18:14] LABS: ABG SITE RIGHT BRACHIAL; ARTERIAL BLOOD GAS PCO2 62 mmHg (35-45)
[2021-10-05 18:36] LABS: ALBUMIN 3.9 g/dL (3.5-5.0); ALKALINE PHOSPHATASE 113 U/L (38-126); BLOOD UREA NITROGEN 8 mg/dL (7-17); CHLORIDE 87 mmol/L (98-107); Creatinine 1 0.49 mg/dL (0.52-1.04); EST GLOMERULAR FILTRATION RATE > 60.0 ML/MIN; Glucose 101 mg/dL (74-106); MAGNESIUM 1.8 mg/dL (1.6-2.3); NT PRO BNP 284 pg/mL (0-900); SGOT/AST 25 U/L (14-36); SGPT/ALT 19 U/L (0-35); SODIUM 132 mmol/L (137-145); Total Protein 7.2 g/dL (6.3-8.2)
[2021-10-05 18:40] LABS: Carbon Dioxide 33 mmol/L (22-30)
[2021-10-05] MEDS ORDERED: solu-MEDROL 125 MG, Sterile H2O 10 ml 2 ML IV ONE ×2 (19:00)
[2021-10-05] MEDS ORDERED: LEVOFLOXACIN 750MG/150ML D5W 750 MG/150 ML BAG IV STA (19:13)
[2021-10-05] MEDS ORDERED: LEVOFLOXACIN 750MG/150ML D5W 750 MG/150 ML BAG IV ONE (19:16)
[2021-10-05] MEDS ORDERED: Sterile H2O 10 ml IJ ONE (19:16)
[2021-10-05] MEDS ORDERED: solu-MEDROL ONE (19:16)
--- NOTE | 2021-10-05 19:21 | ERPHSYRPT ---
- History of Present Illness Time Seen by Provider: 10/05/21 17:17 Source: patient Exam Limitations: no limitations Patient Subjective Stated Complaint: Pt states "I am short of breath. It got really bad yesterday." Triage Nursing Assessment: Pt presented alert and oriented X 3, skin pwd. Pt ambulates with assist of 1, bilat lower extremity edema. audible rhales noted. Physician History: 61 years old female with history of congestive heart failure, chronic respiratory failure on 5 L oxygen, hypertension presented to the ER with chief complaint of increasing shortness of breath for almost 1 week with rapid worseni ng since yesterday. Patient reports getting shortness of breath initially with activity and now even resting with wheezing and crackling. She feels short of breath despite being on oxygen. Also report increased bilateral lower extremity swelling despite taking Lasix as recommended. No chest pain but tightness and pressure/heavy feeling. No fever or chills reported. Also has increased cough productive of clear to yellow sputum which is worse than usual. Denies any known sick contact. Timing/Duration: yesterday, constant, gradual onset, worse Activities at Onset: activity, rest Severity of Dyspnea-Max: severe Severity of Dyspnea-Current: moderate Possible Cause: unknown cause Modifying Factors: Worsens With: coughing, exertion Associated Symptoms: cough, edema, ankle swelling, heaviness, productive cough, tightness, No chest pain/discomfort, No painful breathing Allergies/Adverse Reactions: No Known Drug Allergies Allergy (Verified 09/12/21 20:27) Home Medications: ARIPiprazole [Aripiprazole] 5 mg PO DAILY 01/11/20 [History] Carbamazepine 200 mg [Tegretol 200 MG] 400 mg PO BID 01/11/20 [History] Duloxetine HCl 30 mg [Cymbalta 30 MG Capsule] 120 mg PO DAILY 01/11/20 [History] Pregabalin [Lyrica] 300 mg PO BID 01/11/20 [History] Tizanidine HCl 4 mg [Zanaflex 4 MG] 4 mg PO Q8HPRN PRN 01/11/20 [History] Albuterol Sulfate [Proair Hfa] 2 puffs IH Q6H PRN PRN 06/30/20 [History] Trazodone HCl 50 mg [Desyrel 50 mg] 200 mg PO HS 06/30/20 [History] ALPRAZolam 0.25 MG [xanAX 0.25 MG] 0.25 mg PO TID 03/06/21 [History] Budesonide/Formoterol Fumarate [Budesonide-Formoterol 160-4.5] 2 puff IH BID 03/06/21 [History] Carvedilol 12.5 mg [Coreg 12.5 mg] 12.5 mg PO BID 03/06/21 [History] Levothyroxine Sodium [Euthyrox] 150 tab PO DAILY 07/04/21 [History] Carbamazepine 200 mg [Tegretol 200 MG] 200 mg PO LUNCH 08/28/21 [History] Furosemide 40 mg [Lasix 40 MG] 80 mg PO BID 08/28/21 [History] Potassium Chloride 10 meq PO BID 08/28/21 [History] Albuterol/Ipratropium 3ml Neb* [DUONEB 0.5-3 MG/3 ml Neb] 3 ml NEBULIZE Q6H PRN PRN 09/12/21 [History] Benazepril HCl [Lotensin] 40 mg PO DAILY 09/12/21 [History] Hydroxychloroquine Sulfate 200 mg PO BID 09/12/21 [History] Hx Tetanus, Diphtheria Vaccination/Date Given: No Hx Influenza Vaccination/Date Given: No Hx Pneumococcal Vaccination/Date Given: No Immunizations Up to Date: Yes Travel Risk - International Travel Have you traveled outside of the country in past 3 weeks: No - Coronavirus Screening Are you exhibiting any of the following symptoms?: Yes Symptoms: Shortness of Breath Close contact with a COVID-19 positive Pt in past 14-21 Days: No - Vaccine Status Have you recieved a Covid-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: Yes [employer]: [employer] - Vaccination Dates Date of 2cond Vaccination (if applicable): . Dates if Unknown: . - Review of Systems Constitutional: No Symptoms Eyes: No Symptoms Ears, Nose, & Throat: No Symptoms Respiratory: Cough, Dyspnea, Dyspnea on Exertion (THORPE), Wheezing Cardiac: Edema Abdominal/Gastrointestinal: No Symptoms Genitourinary Symptoms: No Symptoms Musculoskeletal: No Symptoms Skin: No Symptoms Neurological: No Symptoms Psychological: No Symptoms Endocrine: No Symptoms Hematologic/Lymphatic: No Symptoms Immunological/Allergic: No Symptoms - Past Medical History Pertinent Past Medical History: Yes Neurological History: Peripheral Neuropathy ENT History: No Pertinent History Cardiac History: Congestive Heart Failure, Hypertension Respiratory History: Bronchitis, CHF, COPD, Pneumonia Endocrine Medical History: No Pertinent History Musculoskeletal History: No Pertinent History GI Medical History: No Pertinent History History: No Pertinent History Psycho-Social History: No Pertinent History Female Reproductive Disorders: No Pertinent History Other Medical History: pt history recalled, pt sleeping and unable to stay awake to complete admission. - Past Surgical History Past Surgical History: Yes Neuro Surgical History: No Pertinent History Cardiac: No Pertinent History Respiratory: No Pertinent History Gastrointestinal: Appendectomy Genitourinary: No Pertinent History Musculoskeletal: No Pertinent History Female Surgical History: No Pertinent History Other Surgical History: elbow surgery. skin cancer removed - Social History Smoking Status: Current some day smoker How long have you smoked: 20 Exposure to second hand smoke: No Drug Use: none Patient Lives Alone: Yes - Nursing Vital Signs Nursing Vital Signs: Initial Vital Signs Temperature 97.2 F 10/05/21 17:22 Pulse Rate 74 10/05/21 17:22 Respiratory Rate 22 10/05/21 17:22 Blood Pressure 168/92 10/05/21 17:22 O2 Sat by Pulse Oximetry 94 L 10/05/21 17:22 Pain Scale Pain Intensity 0 - Physical Exam General Appearance: no apparent distress, alert Eye Exam: PERRL/EOMI Ears, Nose, Throat Exam: hearing grossly normal, normal pharynx Neck Exam: normal inspection, non-tender, full range of motion Respiratory Exam: accessory muscle use, rhonchi, wheezing Cardiovascular/Chest Exam: normal heart sounds, regular rate/rhythm, edema (2+ bilateral) Abdominal/Gastrointestinal Exam: soft, normal bowel sounds, No tenderness Extremity Exam: non-tender, normal range of motion Neurologic Exam: alert, oriented x 3, cooperative Skin Exam: normal color SpO2 Interpretation: normal SpO2: 99 O2 Delivery: Room Air - Course EKG Interpreted by Me: RATE (72), Sinus Rhythm, NORMAL AXIS, NORMAL INTERVALS, NORMAL QRS Ordered Tests: Active Orders 24 hr Category Date Time Status Supervisor [place] STAT Care 10/05/21 17:50 Active EKG-ER Only STAT Care 10/05/21 17:49 Active IV Insertion STAT Care 10/05/21 17:49 Active Oxygen-ED Only Nasal Cannula 5 lpm Care 10/05/21 17:49 Active CHEST 1 VIEW (PORTABLE) Stat Exams 10/05/21 17:50 Taken ARTERIAL BLOOD GASES Stat Lab 10/05/21 18:07 Completed BLOOD CULTURE Stat Lab 10/05/21 18:33 Received CBC W DIFF Stat Lab 10/05/21 17:40 Completed CMP Stat Lab 10/05/21 17:40 Completed Lactic Acid Stat Lab 10/05/21 18:07 Completed MAGNESIUM Stat Lab 10/05/21 17:40 Completed NT PRO BNP Stat Lab 10/05/21 17:40 Completed TROPONIN Q4H Lab 10/05/21 17:40 Completed TROPONIN Q4H Lab 10/05/21 22:00 Ordered TROPONIN Q4H Lab 10/06/21 02:00 Ordered UA W/RFX CULTURE Stat Lab 10/05/21 Ordered Respiratory Therapy Assessment DAILY RT 10/05/21 18:17 Active Medication Summary Discontinued Medications Generic Name Dose Route Start Last Admin Trade Name Freq PRN Reason Stop Dose Admin Albuterol/Ipratropium 3 ml 10/05/21 17:49 10/05/21 18:01 Ipratropium/Albuterol Sulfate 3 Ml Ampul.Neb IH 10/05/21 17:50 3 ml STAT ONE Administration Albuterol/Ipratropium Confirm 10/05/21 17:58 Ipratropium/Albuterol Sulfate 3 Ml Ampul.Neb Administered 10/05/21 17:59 Dose 3 ml IH .STK-MED ONE Methylprednisolone Sodium 0 mg 10/05/21 19:00 Succinate 125 mg/ Sterile IV 10/05/21 19:01 Water 2 ml STAT ONE Furosemide 60 mg 10/05/21 17:49 10/05/21 18:03 Furosemide 40 Mg/4 Ml Vial IV 10/05/21 17:50 60 mg STAT ONE Administration Furosemide Confirm 10/05/21 18:02 Furosemide 40 Mg/4 Ml Vial Administered 10/05/21 18:03 Dose 80 mg .ROUTE .STK-MED ONE Lab/Rad Data: Laboratory Result Diagrams 10/05/21 17:40 10/05/21 17:40 Laboratory Results 10/05/21 10/05/21 10/05/21 Range/Units 18:07 17:40 17:40 WBC (4.0-10.5) x10^3/uL RBC (4.1-5.4) x10^6/uL Hgb (12.0-16.0) g/dL Hct (35-47) % MCV (78-100) fL MCH (26-32) pg MCHC (32-36) g/dL RDW (11.5-14.0) % Plt Count (150-450) x10^3/uL MPV (7.5-11.0) fL Gran % (36.0-66.0) % Immature Gran % (Auto) (0.00-0.4) % Nucleat RBC Rel Count (0.00-0.1) % Eos # (Auto) (0-0.5) x10^3/uL Immature Gran # (Auto) (0.00-0.03) x10^3u/L Absolute Lymphs (auto) (1.0-4.6) x10^3/uL Absolute Monos (auto) (0.0-1.3) x10^3/uL Absolute Nucleated RBC (0.00-0.01) x10^3u/L Lymphocytes % (24.0-44.0) % Monocytes % (0.0-12.0) % Eosinophils % (0.00-5.0) % Basophils % (0.0-0.4) % Absolute Granulocytes (1.4-6.9) x10^3/uL Basophils # (0-0.4) x10^3/uL Puncture Site RIGHT BRACHIAL pCO2 62 H* (35-45) mmHg pO2 76 (75-100) mmHg Base Excess 10.1 H (-2.0-2.0) O2 Saturation 91.0 L (94-100) g/dF ABG pH 7.39 (7.35-7.45) ABG HCO3 37.5 H* (22-28) ABG O2 Sat (Measured) 96.5 (95-100) % Shabbir Test NOT APPLICABLE A-a Gradient 132 a/A Ratio 0.37 Hemoglobin 12.0 Carboxyhemoglobin 5.0 (0.0-6.9) % THgb Methemoglobin 0.7 L (1.4-1.5) % Temperature 37.0 C POC O2 Flow Rate 40 % Sodium 132 L (137-145) mmol/L Potassium 3.7 4.0 (3.5-5.1) mmol/L Chloride 87 L (98-107) mmol/L Carbon Dioxide 33 H (22-30) mmol/L Anion Gap 16.0 H (5-15) MEQ/L BUN 8 (7-17) mg/dL Creatinine 0.49 L (0.52-1.04) mg/dL Estimated GFR > 60.0 ML/MIN Glucose 101 (74-106) mg/dL Lactic Acid 0.4 (0.4-2.0) Calcium 9.0 (8.4-10.2) mg/dL Magnesium 1.8 (1.6-2.3) mg/dL Total Bilirubin 0.40 (0.2-1.3) mg/dL AST 25 (14-36) U/L ALT 19 (0-35) U/L Alkaline Phosphatase 113 (38-126) U/L Troponin I < 0.012 (0.000-0.034) ng/mL NT-Pro-B Natriuret Pep 284 (0-900) pg/mL Serum Total Protein 7.2 (6.3-8.2) g/dL Albumin 3.9 (3.5-5.0) g/dL 10/05/21 Range/Units 17:40 WBC 9.4 (4.0-10.5) x10^3/uL RBC 4.04 L (4.1-5.4) x10^6/uL Hgb 12.0 (12.0-16.0) g/dL Hct 37.0 (35-47) % MCV 91.6 (78-100) fL MCH 29.7 (26-32) pg MCHC 32.4 (32-36) g/dL RDW 13.8 (11.5-14.0) % Plt Count 243 (150-450) x10^3/uL MPV 9.0 (7.5-11.0) fL Gran % 69.1 H (36.0-66.0) % Immature Gran % (Auto) 0.4 (0.00-0.4) % Nucleat RBC Rel Count 0.0 (0.00-0.1) % Eos # (Auto) 0.58 H (0-0.5) x10^3/uL Immature Gran # (Auto) 0.04 H (0.00-0.03) x10^3u/L Absolute Lymphs (auto) 1.07 (1.0-4.6) x10^3/uL Absolute Monos (auto) 1.16 (0.0-1.3) x10^3/uL Absolute Nucleated RBC 0.00 (0.00-0.01) x10^3u/L Lymphocytes % 11.3 L (24.0-44.0) % Monocytes % 12.3 H (0.0-12.0) % Eosinophils % 6.1 H (0.00-5.0) % Basophils % 0.8 (0.0-0.4) % Absolute Granulocytes 6.51 (1.4-6.9) x10^3/uL Basophils # 0.08 (0-0.4) x10^3/uL Puncture Site pCO2 (35-45) mmHg pO2 (75-100) mmHg Base Excess (-2.0-2.0) O2 Saturation (94-100) g/dF ABG pH (7.35-7.45) ABG HCO3 (22-28) ABG O2 Sat (Measured) (95-100) % Shabbir Test A-a Gradient a/A Ratio Hemoglobin Carboxyhemoglobin (0.0-6.9) % THgb Methemoglobin (1.4-1.5) % Temperature C POC O2 Flow Rate % Sodium (137-145) mmol/L Potassium (3.5-5.1) mmol/L Chloride (98-107) mmol/L Carbon Dioxide (22-30) mmol/L Anion Gap (5-15) MEQ/L BUN (7-17) mg/dL Creatinine (0.52-1.04) mg/dL Estimated GFR ML/MIN Glucose (74-106) mg/dL Lactic Acid (0.4-2.0) Calcium (8.4-10.2) mg/dL Magnesium (1.6-2.3) mg/dL Total Bilirubin (0.2-1.3) mg/dL AST (14-36) U/L ALT (0-35) U/L Alkaline Phosphatase (38-126) U/L Troponin I (0.000-0.034) ng/mL NT-Pro-B Natriuret Pep (0-900) pg/mL Serum Total Protein (6.3-8.2) g/dL Albumin (3.5-5.0) g/dL - Progress Progress: improved Air Movement: good Progress Note: 10/05/21 19:17 61 years old is evaluated for increasing shortness of breath and swelling bilateral lower extremities. She has wheezing and crackling. Given DuoNeb and a dose of Lasix. Chest x-ray did not show any acute cardiopulmonary findings reviewed by me, official report is pending. Normal white count, chemistries revealed normal initial troponin. Normal lactate. Patient is feeling much better on reevaluation. Not in distress anymore. I believe patient is having COPD exacerbation. Discussed with Dr. Hooks, reviewed history, work-up and patient is excepted for admission. We will give a dose of antibiotic as well. Blood Culture(s) Obtained: Yes Antibiotics given: Yes Discussed with : Daniel Will see patient in: hospital (observation) Counseled pt/family regarding: lab results, diagnosis, rad results - Departure Departure Disposition: Observation Clinical Impression: COPD with exacerbation Condition: Stable Critical Care Time: No Referrals: KADEN SCHAFER [employer]CH[employer]IC [Primary Care Provider] - Follow up/PCP as directed Instructions: Chronic Obstructive Pulmonary Disease
[2021-10-05] MEDS ORDERED: BABY ASPIRIN 81 MG CHEW PO ONE (19:28)
[2021-10-05 20:00] LABS: INFLUENZA A NEGATIVE (NEGATIVE); INFLUENZA B NEGATIVE (NEGATIVE); RESPIRATORY SYNCTIAL VIRUS NEGATIVE (Negative); SARS-CoV-2 Xpert Express NEGATIVE (NEGATIVE)
[2021-10-05] MEDS ORDERED: TYLENOL 325 MG PO PRN (21:36)
[2021-10-05] MEDS ORDERED: Zofran 4 MG/2 ML VIAL IV PRN (21:36)
--- NOTE | 2021-10-05 21:44 | XRAY ---
Indication: Short of breath. COPD. Comparison: September 12, 2021 Portable chest remains hyperinflated and clear. Heart not enlarged. Bony thorax intact again with mild osteopenia and degenerative changes. Impression: Continued nonacute hyperinflated chest with chronic bony findings.
[2021-10-06] MEDS: DUONEB 0.5-3 MG/3 ml Neb IH SCH ×4 (01:20→19:03)
[2021-10-06] MEDS ORDERED: solu-MEDROL ONE ×2 (02:15→07:05)
[2021-10-06] MEDS: solu-MEDROL 60 MG, Sterile H2O 10 ml 2 ML IV SCH ×10 (02:29→23:24)
[2021-10-06] MEDS ORDERED: Sterile H2O 10 ml IJ ONE (02:34)
[2021-10-06] MEDS ORDERED: MOTRIN 400 MG PO PRN (02:56)
[2021-10-06] MEDS ORDERED: Tegretol 200 MG PO ONE (03:00)
[2021-10-06 03:19] LABS: ALBUMIN 3.8 g/dL (3.5-5.0); ALKALINE PHOSPHATASE 97 U/L (38-126); BLOOD UREA NITROGEN 11 mg/dL (7-17); CHLORIDE 88 mmol/L (98-107); Calcium 8.8 mg/dL (8.4-10.2); Creatinine 1 0.52 mg/dL (0.52-1.04); EST GLOMERULAR FILTRATION RATE > 60.0 ML/MIN; Glucose 120 mg/dL (74-106); Potassium 4.1 mmol/L (3.5-5.1); SGOT/AST 25 U/L (14-36); SGPT/ALT 20 U/L (0-35); SODIUM 132 mmol/L (137-145); Total Protein 7.1 g/dL (6.3-8.2)
[2021-10-06 03:27] LABS: Carbon Dioxide 35 mmol/L (22-30)
[2021-10-06 03:31] LABS: NT PRO BNP 247 pg/mL (0-900); TROPONIN < 0.012 ng/mL (0.000-0.034)
[2021-10-06 03:32] LABS: Absolute Neutrophil Ct (ANC) 6.11 x10^3/uL (1.4-6.9); Basophil (Absolute #) 0.03 x10^3/uL (0-0.4); Eosinophil % 0.1 % (0.00-5.0); Eosinophil (Absolute #) 0.01 x10^3/uL (0-0.5); Hematocrit 34.8 % (35-47); Hemoglobin 11.2 g/dL (12.0-16.0); Lymphocyte (Absolute #) 0.43 x10^3/uL (1.0-4.6); Lymphocytes % 6.3 % (24.0-44.0); Mean Cell Volume 91.6 fL (78-100); Mean Corpuscular Hemoglobin 29.5 pg (26-32); Mean Corpuscular Hgb Concent. 32.2 g/dL (32-36); Mean Platelet Volume 9.2 fL (7.5-11.0); Monocyte (Absolute #) 0.25 x10^3/uL (0.0-1.3); Monocytes % 3.6 % (0.0-12.0); Platelet Count 238 x10^3/uL (150-450); Red Cell Distribution Width 13.8 % (11.5-14.0); White Blood Count 6.9 x10^3/uL (4.0-10.5)
[2021-10-06 03:34] LABS: ANION GAP 13.1 MEQ/L (5-15)
[2021-10-06] MEDS: Advair Hfa 230/21 Mcg COMMON CANISTER IH SCH ×2 (06:46→19:06)
[2021-10-06] MEDS ORDERED: VENTOLIN COMMON CANISTER IH PRN (07:25)
[2021-10-06] MEDS ORDERED: Zanaflex 4 MG PO PRN (07:25)
[2021-10-06] MEDS ORDERED: Acidophilus TABLET PO PRN (07:30)
[2021-10-06] MEDS: Lotensin PO SCH (08:00)
[2021-10-06] MEDS: Lasix 40 MG PO SCH ×2 (08:01→17:43)
[2021-10-06] MEDS: SYNTHROID 150 MCG PO SCH (08:01)
[2021-10-06] MEDS: NICODERM CQ 14 MG TOP SCH (08:01)
[2021-10-06] MEDS: COREG 12.5 MG PO SCH ×2 (08:01→21:01)
[2021-10-06] MEDS: Tegretol 200 MG PO SCH ×3 (08:21→21:02)
[2021-10-06] MEDS: NON-FORMULARY ITEM PO SCH ×2 (09:31→21:02)
[2021-10-06] MEDS: LYRICA 150MG PO SCH ×2 (09:31→21:00)
[2021-10-06] MEDS: PROTONIX 40 MG IV IV SCH (09:31)
[2021-10-06] MEDS: Klor Con PO SCH ×2 (09:31→21:00)
[2021-10-06] MEDS: Cymbalta 30 MG Capsule PO SCH (09:32)
[2021-10-06] MEDS: ENOXAPARIN SODIUM SQ SCH (09:32)
[2021-10-06] MEDS: Abilify 10 MG PO SCH (09:33)
[2021-10-06] MEDS: MORPHINE SULFATE 2 MG INJ IV PRN ×3 (09:44→20:51)
[2021-10-06] MEDS ORDERED: NON-FORMULARY ITEM (Aripiprazole [Aripiprazole] 5 MG Tablet) PO SCH (10:00)
[2021-10-06] MEDS ORDERED: xanAX 0.25 MG PO SCH ×2 (10:00→13:00)
[2021-10-06] MEDS ORDERED: NON-FORMULARY ITEM (Potassium Chloride [Potassium Chloride] 10 MEQ Tablet.Er) PO SCH (10:00)
[2021-10-06] MEDS ORDERED: NON-FORMULARY ITEM (Pregabalin [Lyrica] 300 MG Capsule) PO SCH (10:00)
[2021-10-06] MEDS ORDERED: NON-FORMULARY ITEM (Hydroxychloroquine Sulfate [Hydroxychloroquine Sulfate] 200 MG Tablet) PO SCH (10:00)
--- NOTE | 2021-10-06 11:44 | PCM.HP ---
History of Present Illness - Chief Complaint Chief Complaint: COPD exacerbation History of Present Illness: is a 61 year old female with oxygen dependent COPD and multiple medical problems who presented to ER with cough and shortness of breath. Robotics Technician, Dr Thompson is manny to see patient this . Patient states it is hard to get a ride to her appts. She also sees Psychiatrist Dr Henrry Noyola. Her PCP is Dr Morales or his [facility]ATOR in [facility]... PMHx includes HTN,CHF,COPD oxygen dependent,Trigeminal neuralgia,peripheral neuropathy,depression/anxiety. - Review of Systems Constitutional: Weakness Eyes: No Symptoms Ears, Nose, & Throat: Sinus Drainage Respiratory: Cough, Short Of Breath, Wheezing Cardiac: No Symptoms Abdominal/Gastrointestinal: No Symptoms Genitourinary Symptoms: No Symptoms Musculoskeletal: Arthralgias, Myalgias Skin: No Symptoms Neurological: Other (trigeminal neuralgia,peripheral neuropathy) Psychological: Anxiety, Depression (Psychiatrist Dr Noyola) Endocrine: No Symptoms Hematologic/Lymphatic: No Symptoms Medications & Allergies Home Medications: Home Medication List ARIPiprazole [Aripiprazole] 5 mg PO DAILY 01/11/20 [History Confirmed 10/05/21] Carbamazepine 200 mg [Tegretol 200 MG] 400 mg PO BID 01/11/20 [History Confirmed 10/05/21] Duloxetine HCl 30 mg [Cymbalta 30 MG Capsule] 120 mg PO DAILY 01/11/20 [History Confirmed 10/05/21] Pregabalin [Lyrica] 300 mg PO BID 01/11/20 [History Confirmed 10/05/21] Tizanidine HCl 4 mg [Zanaflex 4 MG] 4 mg PO Q8HPRN PRN 01/11/20 [History Confirmed 10/05/21] Albuterol Sulfate [Proair Hfa] 2 puffs IH Q6H PRN PRN 06/30/20 [History Confirmed 10/05/21] Trazodone HCl 50 mg [Desyrel 50 mg] 200 mg PO HS 06/30/20 [History Confirmed 10/05/21] ALPRAZolam 0.25 MG [xanAX 0.25 MG] 0.25 mg PO TID 03/06/21 [History Confirmed 10/05/21] Budesonide/Formoterol Fumarate [Budesonide-Formoterol 160-4.5] 2 puff IH BID 03/06/21 [History Confirmed 10/05/21] Carvedilol 12.5 mg [Coreg 12.5 mg] 12.5 mg PO BID 03/06/21 [History Confirmed 10/05/21] Levothyroxine Sodium [Euthyrox] 150 tab PO DAILY 07/04/21 [History Confirmed 10/05/21] Carbamazepine 200 mg [Tegretol 200 MG] 200 mg PO LUNCH 08/28/21 [History Confirmed 10/05/21] Furosemide 40 mg [Lasix 40 MG] 80 mg PO BID 08/28/21 [History Confirmed 10/05/21] Potassium Chloride 10 meq PO BID 08/28/21 [History Confirmed 10/05/21] Albuterol/Ipratropium 3ml Neb* [DUONEB 0.5-3 MG/3 ml Neb] 3 ml NEBULIZE Q6H PRN PRN 09/12/21 [History Confirmed 10/05/21] Benazepril HCl [Lotensin] 40 mg PO DAILY 09/12/21 [History Confirmed 10/05/21] Hydroxychloroquine Sulfate 200 mg PO BID 09/12/21 [History Confirmed 10/05/21] Lactobacillus Acidophilus [Acidophilus TABLET] 1 tab PO TID PRN #21 tablet 09/15/21 [Rx Confirmed 10/05/21] Nicotine 14 mg [Nicoderm Cq 14 mg] 14 mg TOP Q24H 14 Days #14 patch 09/15/21 [Rx Confirmed 10/05/21] Allergies/Adverse Reactions: Allergies Allergy/AdvReac Type Severity Reaction Status Date / Time No Known Drug Allergies Allergy Verified 09/12/21 20:27 - Past Medical History Past Medical History: Yes Neurological History: Peripheral Neuropathy ENT History: No Pertinent History Cardiac History: Congestive Heart Failure, Hypertension Respiratory History: Bronchitis, CHF, COPD, Pneumonia Endocrine Medical History: No Pertinent History Musculoskelatal History: No Pertinent History GI Medical History: No Pertinent History History: No Pertinent History Pyscho-Social History: No Pertinent History Reproductive Disorders: No Pertinent History Comment: trigeminal neuralgia - Female History Are you now?: No - Past Surgical History Past Surgical History: Yes Neuro Surgical History: No Pertinent History Cardiac History: No Pertinent History Respiratory Surgery: No Pertinent History GI Surgical History: Appendectomy Genitourinary Surgical Hx: No Pertinent History Musculskeletal Surgical Hx: No Pertinent History Female Surgical History: No Pertinent History Other Surgical History: elbow surgery. skin cancer removed - Social History Smoking Status: Former smoker How long have you smoked: 20 Exposure to second hand smoke: No Alcohol: None Drug Use: none - Physical Exam Vital Signs: Vital Signs - 24 hr Temp Pulse Resp BP BP Pulse Ox 10/06/21 09:30 72 164/77 10/06/21 07:22 97.3 F 72 18 211/93 97 10/06/21 06:49 72 18 97 10/06/21 03:49 97.7 F 69 18 143/65 95 10/06/21 01:20 76 20 94 L 10/06/21 00:00 97.2 F 70 28 H 166/91 92 L 10/05/21 22:35 92 L 10/05/21 19:53 77 133/73 92 L 10/05/21 19:21 99 10/05/21 18:18 73 25 H 99 10/05/21 17:22 97.2 F 74 22 168/92 94 L General Appearance: mild distress, anxiety Neurologic Exam: alert, oriented x 3, cooperative Eye Exam: eyes nml inspection Ears, Nose, Throat Exam: moist mucous membranes Neck Exam: normal inspection Respiratory Exam: diminished breath sounds, wheezing, other (0n O2 5L/NC) Pelvic Exam: not done Rectal Exam: not done Back Exam: normal inspection Extremity Exam: other (no pitting edema no calf tenderness) Results - Labs Lab/Micro Results: Lab Results-Last 24 Hours 10/05/21 10/05/21 10/05/21 Range/Units 17:40 17:40 17:40 WBC 9.4 (4.0-10.5) x10^3/uL RBC 4.04 L (4.1-5.4) x10^6/uL Hgb 12.0 (12.0-16.0) g/dL Hct 37.0 (35-47) % MCV 91.6 (78-100) fL MCH 29.7 (26-32) pg MCHC 32.4 (32-36) g/dL RDW 13.8 (11.5-14.0) % Plt Count 243 (150-450) x10^3/uL MPV 9.0 (7.5-11.0) fL Gran % 69.1 H (36.0-66.0) % Immature Gran % (Auto) 0.4 (0.00-0.4) % Nucleat RBC Rel Count 0.0 (0.00-0.1) % Eos # (Auto) 0.58 H (0-0.5) x10^3/uL Immature Gran # (Auto) 0.04 H (0.00-0.03) x10^3u/L Absolute Lymphs (auto) 1.07 (1.0-4.6) x10^3/uL Absolute Monos (auto) 1.16 (0.0-1.3) x10^3/uL Absolute Nucleated RBC 0.00 (0.00-0.01) x10^3u/L Lymphocytes % 11.3 L (24.0-44.0) % Monocytes % 12.3 H (0.0-12.0) % Eosinophils % 6.1 H (0.00-5.0) % Basophils % 0.8 (0.0-0.4) % Absolute Granulocytes 6.51 (1.4-6.9) x10^3/uL Basophils # 0.08 (0-0.4) x10^3/uL Puncture Site pCO2 (35-45) mmHg pO2 (75-100) mmHg Base Excess (-2.0-2.0) O2 Saturation (94-100) g/dF ABG pH (7.35-7.45) ABG HCO3 (22-28) ABG O2 Sat (Measured) (95-100) % Shabbir Test A-a Gradient a/A Ratio Hemoglobin Carboxyhemoglobin (0.0-6.9) % THgb Methemoglobin (1.4-1.5) % Temperature C POC O2 Flow Rate % Sodium 132 L (137-145) mmol/L Potassium 4.0 (3.5-5.1) mmol/L Chloride 87 L (98-107) mmol/L Carbon Dioxide 33 H (22-30) mmol/L Anion Gap 16.0 H (5-15) MEQ/L BUN 8 (7-17) mg/dL Creatinine 0.49 L (0.52-1.04) mg/dL Estimated GFR > 60.0 ML/MIN Glucose 101 (74-106) mg/dL POC Glucometer (74 to 106) mg/dL Lactic Acid (0.4-2.0) Calcium 9.0 (8.4-10.2) mg/dL Magnesium 1.8 (1.6-2.3) mg/dL Total Bilirubin 0.40 (0.2-1.3) mg/dL AST 25 (14-36) U/L ALT 19 (0-35) U/L Alkaline Phosphatase 113 (38-126) U/L Troponin I < 0.012 (0.000-0.034) ng/mL NT-Pro-B Natriuret Pep 284 (0-900) pg/mL Serum Total Protein 7.2 (6.3-8.2) g/dL Albumin 3.9 (3.5-5.0) g/dL Vitamin B12 (239-931) pg/mL TSH 3rd Generation (0.47-4.68) mIU/L Carbamazepine (4.0-12.0) ug/mL Influenza Type A Ag (NEGATIVE) Influenza Type B Ag (NEGATIVE) RSV (PCR) (Negative) SARS-CoV-2 (PCR) (NEGATIVE) 10/05/21 10/05/21 10/05/21 Range/Units 18:07 19:21 22:28 WBC (4.0-10.5) x10^3/uL RBC (4.1-5.4) x10^6/uL Hgb (12.0-16.0) g/dL Hct (35-47) % MCV (78-100) fL MCH (26-32) pg MCHC (32-36) g/dL RDW (11.5-14.0) % Plt Count (150-450) x10^3/uL MPV (7.5-11.0) fL Gran % (36.0-66.0) % Immature Gran % (Auto) (0.00-0.4) % Nucleat RBC Rel Count (0.00-0.1) % Eos # (Auto) (0-0.5) x10^3/uL Immature Gran # (Auto) (0.00-0.03) x10^3u/L Absolute Lymphs (auto) (1.0-4.6) x10^3/uL Absolute Monos (auto) (0.0-1.3) x10^3/uL Absolute Nucleated RBC (0.00-0.01) x10^3u/L Lymphocytes % (24.0-44.0) % Monocytes % (0.0-12.0) % Eosinophils % (0.00-5.0) % Basophils % (0.0-0.4) % Absolute Granulocytes (1.4-6.9) x10^3/uL Basophils # (0-0.4) x10^3/uL Puncture Site RIGHT BRACHIAL pCO2 62 H* (35-45) mmHg pO2 76 (75-100) mmHg Base Excess 10.1 H (-2.0-2.0) O2 Saturation 91.0 L (94-100) g/dF ABG pH 7.39 (7.35-7.45) ABG HCO3 37.5 H* (22-28) ABG O2 Sat (Measured) 96.5 (95-100) % Shabbir Test NOT APPLICABLE A-a Gradient 132 a/A Ratio 0.37 Hemoglobin 12.0 Carboxyhemoglobin 5.0 (0.0-6.9) % THgb Methemoglobin 0.7 L (1.4-1.5) % Temperature 37.0 C POC O2 Flow Rate 40 % Sodium (137-145) mmol/L Potassium 3.7 (3.5-5.1) mmol/L Chloride (98-107) mmol/L Carbon Dioxide (22-30) mmol/L Anion Gap (5-15) MEQ/L BUN (7-17) mg/dL Creatinine (0.52-1.04) mg/dL Estimated GFR ML/MIN Glucose (74-106) mg/dL POC Glucometer (74 to 106) mg/dL Lactic Acid 0.4 (0.4-2.0) Calcium (8.4-10.2) mg/dL Magnesium (1.6-2.3) mg/dL Total Bilirubin (0.2-1.3) mg/dL AST (14-36) U/L ALT (0-35) U/L Alkaline Phosphatase (38-126) U/L Troponin I < 0.012 (0.000-0.034) ng/mL NT-Pro-B Natriuret Pep (0-900) pg/mL Serum Total Protein (6.3-8.2) g/dL Albumin (3.5-5.0) g/dL Vitamin B12 (239-931) pg/mL TSH 3rd Generation (0.47-4.68) mIU/L Carbamazepine (4.0-12.0) ug/mL Influenza Type A Ag NEGATIVE (NEGATIVE) Influenza Type B Ag NEGATIVE (NEGATIVE) RSV (PCR) NEGATIVE (Negative) SARS-CoV-2 (PCR) NEGATIVE (NEGATIVE) 10/06/21 10/06/21 10/06/21 Range/Units 00:05 03:03 03:03 WBC 6.9 (4.0-10.5) x10^3/uL RBC 3.80 L (4.1-5.4) x10^6/uL Hgb 11.2 L (12.0-16.0) g/dL Hct 34.8 L (35-47) % MCV 91.6 (78-100) fL MCH 29.5 (26-32) pg MCHC 32.2 (32-36) g/dL RDW 13.8 (11.5-14.0) % Plt Count 238 (150-450) x10^3/uL MPV 9.2 (7.5-11.0) fL Gran % 89.0 H (36.0-66.0) % Immature Gran % (Auto) 0.6 H (0.00-0.4) % Nucleat RBC Rel Count 0.0 (0.00-0.1) % Eos # (Auto) 0.01 (0-0.5) x10^3/uL Immature Gran # (Auto) 0.04 H (0.00-0.03) x10^3u/L Absolute Lymphs (auto) 0.43 L (1.0-4.6) x10^3/uL Absolute Monos (auto) 0.25 (0.0-1.3) x10^3/uL Absolute Nucleated RBC 0.00 (0.00-0.01) x10^3u/L Lymphocytes % 6.3 L (24.0-44.0) % Monocytes % 3.6 (0.0-12.0) % Eosinophils % 0.1 (0.00-5.0) % Basophils % 0.4 (0.0-0.4) % Absolute Granulocytes 6.11 (1.4-6.9) x10^3/uL Basophils # 0.03 (0-0.4) x10^3/uL Puncture Site pCO2 (35-45) mmHg pO2 (75-100) mmHg Base Excess (-2.0-2.0) O2 Saturation (94-100) g/dF ABG pH (7.35-7.45) ABG HCO3 (22-28) ABG O2 Sat (Measured) (95-100) % Shabbir Test A-a Gradient a/A Ratio Hemoglobin Carboxyhemoglobin (0.0-6.9) % THgb Methemoglobin (1.4-1.5) % Temperature C POC O2 Flow Rate % Sodium (137-145) mmol/L Potassium (3.5-5.1) mmol/L Chloride (98-107) mmol/L Carbon Dioxide (22-30) mmol/L Anion Gap (5-15) MEQ/L BUN (7-17) mg/dL Creatinine (0.52-1.04) mg/dL Estimated GFR ML/MIN Glucose (74-106) mg/dL POC Glucometer 142 H (74 to 106) mg/dL Lactic Acid (0.4-2.0) Calcium (8.4-10.2) mg/dL Magnesium (1.6-2.3) mg/dL Total Bilirubin (0.2-1.3) mg/dL AST (14-36) U/L ALT (0-35) U/L Alkaline Phosphatase (38-126) U/L Troponin I < 0.012 (0.000-0.034) ng/mL NT-Pro-B Natriuret Pep 247 (0-900) pg/mL Serum Total Protein (6.3-8.2) g/dL Albumin (3.5-5.0) g/dL Vitamin B12 (239-931) pg/mL TSH 3rd Generation (0.47-4.68) mIU/L Carbamazepine (4.0-12.0) ug/mL Influenza Type A Ag (NEGATIVE) Influenza Type B Ag (NEGATIVE) RSV (PCR) (Negative) SARS-CoV-2 (PCR) (NEGATIVE) 10/06/21 10/06/21 10/06/21 Range/Units 03:03 03:06 03:06 WBC (4.0-10.5) x10^3/uL RBC (4.1-5.4) x10^6/uL Hgb (12.0-16.0) g/dL Hct (35-47) % MCV (78-100) fL MCH (26-32) pg MCHC (32-36) g/dL RDW (11.5-14.0) % Plt Count (150-450) x10^3/uL MPV (7.5-11.0) fL Gran % (36.0-66.0) % Immature Gran % (Auto) (0.00-0.4) % Nucleat RBC Rel Count (0.00-0.1) % Eos # (Auto) (0-0.5) x10^3/uL Immature Gran # (Auto) (0.00-0.03) x10^3u/L Absolute Lymphs (auto) (1.0-4.6) x10^3/uL Absolute Monos (auto) (0.0-1.3) x10^3/uL Absolute Nucleated RBC (0.00-0.01) x10^3u/L Lymphocytes % (24.0-44.0) % Monocytes % (0.0-12.0) % Eosinophils % (0.00-5.0) % Basophils % (0.0-0.4) % Absolute Granulocytes (1.4-6.9) x10^3/uL Basophils # (0-0.4) x10^3/uL Puncture Site pCO2 (35-45) mmHg pO2 (75-100) mmHg Base Excess (-2.0-2.0) O2 Saturation (94-100) g/dF ABG pH (7.35-7.45) ABG HCO3 (22-28) ABG O2 Sat (Measured) (95-100) % Shabbir Test A-a Gradient a/A Ratio Hemoglobin Carboxyhemoglobin (0.0-6.9) % THgb Methemoglobin (1.4-1.5) % Temperature C POC O2 Flow Rate % Sodium 132 L (137-145) mmol/L Potassium 4.1 (3.5-5.1) mmol/L Chloride 88 L (98-107) mmol/L Carbon Dioxide 35 H (22-30) mmol/L Anion Gap 13.1 (5-15) MEQ/L BUN 11 (7-17) mg/dL Creatinine 0.52 (0.52-1.04) mg/dL Estimated GFR > 60.0 ML/MIN Glucose 120 H (74-106) mg/dL POC Glucometer (74 to 106) mg/dL Lactic Acid (0.4-2.0) Calcium 8.8 (8.4-10.2) mg/dL Magnesium (1.6-2.3) mg/dL Total Bilirubin 0.30 (0.2-1.3) mg/dL AST 25 (14-36) U/L ALT 20 (0-35) U/L Alkaline Phosphatase 97 (38-126) U/L Troponin I (0.000-0.034) ng/mL NT-Pro-B Natriuret Pep (0-900) pg/mL Serum Total Protein 7.1 (6.3-8.2) g/dL Albumin 3.8 (3.5-5.0) g/dL Vitamin B12 230 L (239-931) pg/mL TSH 3rd Generation (0.47-4.68) mIU/L Carbamazepine 10.7 (4.0-12.0) ug/mL Influenza Type A Ag (NEGATIVE) Influenza Type B Ag (NEGATIVE) RSV (PCR) (Negative) SARS-CoV-2 (PCR) (NEGATIVE) 10/06/21 10/06/21 10/06/21 Range/Units 03:07 06:52 11:10 WBC (4.0-10.5) x10^3/uL RBC (4.1-5.4) x10^6/uL Hgb (12.0-16.0) g/dL Hct (35-47) % MCV (78-100) fL MCH (26-32) pg MCHC (32-36) g/dL RDW (11.5-14.0) % Plt Count (150-450) x10^3/uL MPV (7.5-11.0) fL Gran % (36.0-66.0) % Immature Gran % (Auto) (0.00-0.4) % Nucleat RBC Rel Count (0.00-0.1) % Eos # (Auto) (0-0.5) x10^3/uL Immature Gran # (Auto) (0.00-0.03) x10^3u/L Absolute Lymphs (auto) (1.0-4.6) x10^3/uL Absolute Monos (auto) (0.0-1.3) x10^3/uL Absolute Nucleated RBC (0.00-0.01) x10^3u/L Lymphocytes % (24.0-44.0) % Monocytes % (0.0-12.0) % Eosinophils % (0.00-5.0) % Basophils % (0.0-0.4) % Absolute Granulocytes (1.4-6.9) x10^3/uL Basophils # (0-0.4) x10^3/uL Puncture Site pCO2 (35-45) mmHg pO2 (75-100) mmHg Base Excess (-2.0-2.0) O2 Saturation (94-100) g/dF ABG pH (7.35-7.45) ABG HCO3 (22-28) ABG O2 Sat (Measured) (95-100) % Shabbir Test A-a Gradient a/A Ratio Hemoglobin Carboxyhemoglobin (0.0-6.9) % THgb Methemoglobin (1.4-1.5) % Temperature C POC O2 Flow Rate % Sodium (137-145) mmol/L Potassium (3.5-5.1) mmol/L Chloride (98-107) mmol/L Carbon Dioxide (22-30) mmol/L Anion Gap (5-15) MEQ/L BUN (7-17) mg/dL Creatinine (0.52-1.04) mg/dL Estimated GFR ML/MIN Glucose (74-106) mg/dL POC Glucometer 123 H 179 H (74 to 106) mg/dL Lactic Acid (0.4-2.0) Calcium (8.4-10.2) mg/dL Magnesium (1.6-2.3) mg/dL Total Bilirubin (0.2-1.3) mg/dL AST (14-36) U/L ALT (0-35) U/L Alkaline Phosphatase (38-126) U/L Troponin I (0.000-0.034) ng/mL NT-Pro-B Natriuret Pep (0-900) pg/mL Serum Total Protein (6.3-8.2) g/dL Albumin (3.5-5.0) g/dL Vitamin B12 (239-931) pg/mL TSH 3rd Generation 0.863 (0.47-4.68) mIU/L Carbamazepine (4.0-12.0) ug/mL Influenza Type A Ag (NEGATIVE) Influenza Type B Ag (NEGATIVE) RSV (PCR) (Negative) SARS-CoV-2 (PCR) (NEGATIVE) Accuchecks Date 10/06/21 Time 06:52 - Radiology Impressions Radiology Exams & Impressions: Radiology Procedures Category Date Time Status CHEST 1 VIEW (PORTABLE) Stat Exams 10/05/21 17:50 Completed - Other Procedures and Tests Respiratory Therapy 10/05/21 18:17 Respiratory Therapy Assessment DAILY 10/05/21 22:30 Oxygen Nasal Cannula 5 lpm Assessment/Plan (1) COPD with exacerbation Current Visit: Yes Status: Acute Assessment & Plan: see orders,requested Pulmonolgy consult. Dr Thompson is patient's Robotics Technician Code(s): J44.1 - CHRONIC OBSTRUCTIVE PULMONARY DISEASE W (ACUTE) EXACERBATION (2) Anxiety Current Visit: Yes Status: Acute Assessment & Plan: increased frequency ofXanax to QID from home dosing of TID Code(s): F41.9 - ANXIETY DISORDER, UNSPECIFIED (3) HTN (hypertension) Current Visit: Yes Status: Acute Code(s): I10 - ESSENTIAL (PRIMARY) HYPERTENSION (4) History of trigeminal neuralgia Current Visit: Yes Status: Chronic Assessment & Plan: continue present meds Code(s): Z86.69 - PERSONAL HISTORY OF DIS OF THE NERVOUS SYS AND SENSE ORGANS (5) Neuropathy Current Visit: Yes Status: Chronic Assessment & Plan: worse with illness, testing B12 Code(s): G62.9 - POLYNEUROPATHY, UNSPECIFIED
[2021-10-06] MEDS: xanAX 0.25 MG PO SCH ×4 (11:58→21:00)
[2021-10-06] MEDS ORDERED: DESYREL 50 MG PO SCH (22:00)
[2021-10-06] MEDS ORDERED: Levofloxacin 500MG/100ML D5W 500 MG/100 ML BAG IV SCH (22:00)
[2021-10-07] MEDS: DUONEB 0.5-3 MG/3 ml Neb IH SCH ×2 (01:12→07:22)
[2021-10-07] MEDS ORDERED: solu-MEDROL ONE (03:20)
[2021-10-07] MEDS: solu-MEDROL 60 MG, Sterile H2O 10 ml 2 ML IV SCH ×4 (05:34→12:12)
[2021-10-07 07:23] LABS: Epithelial Cells RARE /HPF (FEW); Mucus SLIGHT /HPF (NEGATIVE); RBC 0-2 /HPF (0-2)
[2021-10-07 07:25] LABS: Appearance CLEAR (CLEAR); Bilirubin NEGATIVE (NEGATIVE); Dipstick done @ ? MAIN LAB; Glucose NEGATIVE (NEGATIVE); Ketones NEGATIVE (NEGATIVE); Nitrite NEGATIVE (NEGATIVE); Ph 5.5 (5-6); Protein,Urine Dip NEGATIVE (Negative); RBC NEGATIVE Ery/ul (0-5); Specific Gravity >=1.030 (1.005-1.025); Urine Cultured Indicated? NO; Urobilinogen 0.2 mg/dL (0-1)
[2021-10-07] MEDS: Advair Hfa 230/21 Mcg COMMON CANISTER IH SCH (07:25)
[2021-10-07] MEDS: Lotensin PO SCH (07:44)
[2021-10-07] MEDS: Tegretol 200 MG PO SCH ×2 (07:44→12:12)
[2021-10-07] MEDS: COREG 12.5 MG PO SCH (07:45)
[2021-10-07] MEDS: SYNTHROID 150 MCG PO SCH (07:46)
[2021-10-07] MEDS: Cymbalta 30 MG Capsule PO SCH (07:46)
[2021-10-07] MEDS: LYRICA 150MG PO SCH (07:47)
[2021-10-07] MEDS: Abilify 10 MG PO SCH (07:47)
[2021-10-07] MEDS: Klor Con PO SCH (07:47)
[2021-10-07] MEDS: Lasix 40 MG PO SCH (07:48)
[2021-10-07] MEDS: NON-FORMULARY ITEM PO SCH (07:49)
[2021-10-07] MEDS: ENOXAPARIN SODIUM SQ SCH (07:50)
[2021-10-07] MEDS: PROTONIX 40 MG IV IV SCH (07:53)
[2021-10-07] MEDS: NICODERM CQ 14 MG TOP SCH (07:53)
[2021-10-07] MEDS: xanAX 0.25 MG PO SCH ×2 (09:37→13:57)
[2021-10-07 12:10] VITALS: BP 126/60; PULSE 62; O2SAT 96
[2021-10-07] MEDS ORDERED: Cyanocobalamin B-12 1000 MCG/ML SQ ONE (12:21)
--- NOTE | 2021-10-07 12:40 | PCM.NOTE ---
Date and Time: 10/07/21 1239 Subjective Assessment: Patient is more calm and comfortable today,feels she is at baseline and would like to go home. States she will be starting Cardiopulmonary rehab with [facility] this week and has appt with Dr Thompson this and has arranged a ride. Objective Exam General Appearance: no apparent distress, alert Neurologic Exam: oriented x 3, cooperative, normal mood/affect Skin Exam: warm, dry Respiratory Exam: diminished breath sounds (no wheeeze or rales or ronchi) Cardiovascular Exam: regular rate/rhythm Gastrointestinal/Abdomen Exam: soft (nontender) OBJECTIVE DATA Vital Signs: Vital Signs - 24 hr Temp Pulse Resp BP Pulse Ox 10/07/21 12:00 97.5 F 62 19 126/60 96 10/07/21 08:00 97.8 F 65 19 204/96 95 10/07/21 07:26 64 16 97 10/07/21 04:00 97.3 F 77 20 155/68 95 10/07/21 01:12 61 98 10/06/21 23:55 97.5 F 74 18 135/65 93 L 10/06/21 20:00 97.5 F 75 17 164/77 98 10/06/21 19:03 72 15 94 L 10/06/21 16:22 97.4 F 69 16 151/72 97 10/06/21 12:47 72 18 97 Pain Assessment - Last Documented Pain Intensity 7 Pain Scale Used [facility] Intake and Output: Intake & Output 10/05/21 10/06/21 10/07/21 10/08/21 11:59 11:59 11:59 11:59 Intake Total 240 1520 Output Total 350 1850 Balance -110 -330 Weight 79.7 kg 81 kg Lab Results: Lab Results-Last 24 Hours 10/06/21 10/06/21 10/07/21 Range/Units 16:05 20:32 07:24 POC Glucometer 123 H 160 H (74 to 106) mg/dL Urinalys Dipstick Clnc MAIN LAB Urine Color YELLOW (YELLOW) Urine Appearance CLEAR (CLEAR) Urine pH 5.5 (5-6) Ur Specific [place] >=1.030 (1.005-1.025) POC Urine Protein Conf NEGATIVE (Negative) Urine Ketones NEGATIVE (NEGATIVE) Urine Nitrite NEGATIVE (NEGATIVE) Urine Bilirubin NEGATIVE (NEGATIVE) Urine Urobilinogen 0.2 (0-1) mg/dL Urine Leukocytes NEGATIVE (NEGATIVE) Urine WBC (Auto) NONE (0-5) /HPF Urine RBC (Auto) 0-2 (0-2) /HPF U Epithel Cells (Auto) RARE (FEW) /HPF Urine Bacteria (Auto) NONE (NEGATIVE) /HPF Urine RBC NEGATIVE (0-5) [place]dom[place]/ul Urine Mucus (Auto) SLIGHT (NEGATIVE) /HPF Ur Culture Indicated? NO Urine Glucose NEGATIVE (NEGATIVE) mg/dL 10/07/21 10/07/21 Range/Units 07:32 11:53 POC Glucometer 124 H 129 H (74 to 106) mg/dL Urinalys Dipstick Clnc Urine Color (YELLOW) Urine Appearance (CLEAR) Urine pH (5-6) Ur Specific [place] (1.005-1.025) POC Urine Protein Conf (Negative) Urine Ketones (NEGATIVE) Urine Nitrite (NEGATIVE) Urine Bilirubin (NEGATIVE) Urine Urobilinogen (0-1) mg/dL Urine Leukocytes (NEGATIVE) Urine WBC (Auto) (0-5) /HPF Urine RBC (Auto) (0-2) /HPF U Epithel Cells (Auto) (FEW) /HPF Urine Bacteria (Auto) (NEGATIVE) /HPF Urine RBC (0-5) Baldom[place]/ul Urine Mucus (Auto) (NEGATIVE) /HPF Ur Culture Indicated? Urine Glucose (NEGATIVE) mg/dL Radiology Exams: Radiology Procedures Category Date Time Status CHEST 1 VIEW (PORTABLE) Stat Exams 10/05/21 17:50 Completed Assessment/Plan (1) COPD with exacerbation Current Visit: Yes Status: Acute Assessment & Plan: improved-has Home O2 - will discharge today Code(s): J44.1 - CHRONIC OBSTRUCTIVE PULMONARY DISEASE W (ACUTE) EXACERBATION (2) Anxiety Current Visit: Yes Status: Chronic Code(s): F41.9 - ANXIETY DISORDER, UNSPECIFIED (3) HTN (hypertension) Current Visit: Yes Status: Acute Code(s): I10 - ESSENTIAL (PRIMARY) HYPERTENSION (4) History of trigeminal neuralgia Current Visit: Yes Status: Chronic Code(s): Z86.69 - PERSONAL HISTORY OF DIS OF THE NERVOUS SYS AND SENSE ORGANS (5) Neuropathy Current Visit: Yes Status: Chronic Code(s): G62.9 - POLYNEUROPATHY, UNSPECIFIED (6) B12 deficiency Current Visit: Yes Status: Acute Assessment & Plan: B12 - 2,000 IU before discharge today Code(s): E53.8 - DEFICIENCY OF OTHER SPECIFIED B GROUP VITAMINS
--- NOTE | 2021-10-07 13:56 | PCM.DCORD ---
- Discharge Disposition: Home, Self-Care Condition: Stable Prescriptions: New Levofloxacin [Levofloxacin 500 MG Tablet] 500 mg PO DAILY #4 tablet Cyanocobalamin (Vitamin B-12) [Vitamin B-12] 1,000 mcg SL DAILY #30 tablet Continue Carbamazepine 200 mg [Tegretol 200 MG] 400 mg PO BID Tizanidine HCl 4 mg [Zanaflex 4 MG] 4 mg PO Q8HPRN PRN PRN Reason: Muscle Spasms Pregabalin [Lyrica] 300 mg PO BID Duloxetine HCl 30 mg [Cymbalta 30 MG Capsule] 120 mg PO DAILY ARIPiprazole [Aripiprazole] 5 mg PO DAILY Trazodone HCl 50 mg [Desyrel 50 mg] 200 mg PO HS Albuterol Sulfate [Proair Hfa] 2 puffs IH Q6H PRN PRN PRN Reason: Shortness Of Breath Carvedilol 12.5 mg [Coreg 12.5 mg] 12.5 mg PO BID ALPRAZolam 0.25 MG [xanAX 0.25 MG] 0.25 mg PO TID Budesonide/Formoterol Fumarate [Budesonide-Formoterol 160-4.5] 2 puff IH BID Levothyroxine Sodium [Euthyrox] 150 tab PO DAILY Carbamazepine 200 mg [Tegretol 200 MG] 200 mg PO LUNCH Furosemide 40 mg [Lasix 40 MG] 80 mg PO BID Potassium Chloride 10 meq PO BID Benazepril HCl [Lotensin] 40 mg PO DAILY Albuterol/Ipratropium 3ml Neb* [DUONEB 0.5-3 MG/3 ml Neb] 3 ml NEBULIZE Q6H PRN PRN PRN Reason: Wheezing/Chest Congestion Hydroxychloroquine Sulfate 200 mg PO BID Lactobacillus Acidophilus [Acidophilus TABLET] 1 tab PO TID PRN #21 tablet Nicotine 14 mg [Nicoderm Cq 14 mg] 14 mg TOP Q24H 14 Days #14 patch Follow up with: LYNDA AYOUB [ACTIVE STAFF] - 10/10/21 10:00 am JENNIFER THURSTON DO [ACTIVE STAFF] - 10/14/21 9:00 am
== END 2021-10-07 15:00 | disposition home or self-care (01) ==
LOC: ED 17:13 → MED SURG 21:21
PROVIDERS: ADMIT Family Medicine; ATTEND Family Medicine
DX: J44.1 Chronic obstructive pulmonary disease with (acute) exacerbation (principal); I11.0 Hypertensive heart disease with heart failure; I50.9 Heart failure, unspecified; F41.9 Anxiety disorder, unspecified; G62.9 Polyneuropathy, unspecified; E53.8 Deficiency of other specified B group vitamins; Z99.81 Dependence on supplemental oxygen; Z79.899 Other long term (current) drug therapy; Z20.828 Contact with and (suspected) exposure to other viral communicable diseases; Z86.69 Personal history of other diseases of the nervous system and sense organs
CPT/HCPCS: 0241U; 36000; 36415; 36600; 71045; 80053; 80156; 81015; 82375; 82607; 82803; 82947; 83605; 83735; 83880; 84443; 84484; 85025; 87040; 93005; 93041; 93268; 94640; 94760; 96374; 99285; G0378; J1650; J1940; J1956; J2270; J2405; J2930; J3420; A9270-GY

== ENCOUNTER 2021-12-27 06:13 | Day surgery (SDC) | payer OTHER ==
[~2021-12-27 06:13] MED LIST changes: +DIPRIVAN 200 MG/20 ML IV ONE; +Decadron 4 MG INJ ONE; -Lactated Ringers 1,000 ML IV ONE; +Quelicin Fliptop 200 MG/10 ML ONE; +SUBLIMAZE 100 MCG/2 ML ONE; -Sensorcaine 0.25% 10 ML ONE; +Versed 2 MG/2 ML Injection ONE; +Xylocaine-Mpf 2% 5 Ml Vial ONE; +Zofran 4 MG/2 ML VIAL ONE
[2021-12-27] MEDS ORDERED: XYLOCAINE 1% HCL 20 ML MDV ONE (06:28)
[2021-12-27] MEDS ORDERED: Lactated Ringers 1,000 ML IV SCH (06:30)
[2021-12-27] MEDS ORDERED: CEFAZOLIN 2 GM-D5W BAG** 2 GM/50 ML ML IV SCH (06:30)
[2021-12-27] MEDS ORDERED: Marcaine Mpf 0.5% Vial 30 Ml ONE (06:30)
[2021-12-27] MEDS ORDERED: Versed 2 MG/2 ML Injection IV ONE (07:23)
[2021-12-27] MEDS ORDERED: Versed 2 MG/2 ML Injection ONE (07:25)
[2021-12-27] MEDS ORDERED: Epinephrine Preservative Free 1 MG/ML ONE (07:59)
[2021-12-27] MEDS ORDERED: DIPRIVAN 200 MG/20 ML IV ONE ×3 (08:25→12:01)
[2021-12-27] MEDS ORDERED: Ephedrine Sulfate 50 MG/ML ONE (09:23)
[2021-12-27] MEDS ORDERED: Lactated Ringers 1,000 ML IV ONE (09:23)
[2021-12-27] MEDS ORDERED: Xylocaine-Mpf 2% 5 Ml Vial ONE (11:03)
[2021-12-27] MEDS ORDERED: Marcaine 0.5%/Epinephrine 10 ML ONE (11:03)
[2021-12-27] MEDS ORDERED: DEXMEDETOMIDINE 80 MCG/20ML-NS IV ONE (11:05)
--- NOTE | 2021-12-27 11:53 | XRAY ---
Indication: Right foot gastrocnemius resection and 1st-3rd tarsometatarsal arthrodesis. Intraoperative fluoroscopy provided for 3 minutes 51 seconds. 33 digital spot images submitted for interpretation ultimately demonstrates 1st-3rd tarsometatarsal fusion with multiple intact fixation plates/screws. Correlate with intraoperative findings/report.
[2021-12-27 15:56] VITALS: BP 138/74; PULSE 71; O2SAT 95
--- NOTE | 2021-12-30 08:28 | OP ---
SURGERY DATE/TIME: 12/27/2021 0800 PREOPERATIVE DIAGNOSES: 1) Lisfranc fracture dislocation right foot. 2) Pain right foot. 3) Second metatarsal fracture. 4) Third metatarsal fracture. 5) Chronic obstructive pulmonary disease. 6) Tobacco dependence syndrome. 7) Gastrocnemius equinus. POSTOPERATIVE DIAGNOSES: 1) Lisfranc fracture dislocation right foot. 2) Pain right foot. 3) Second metatarsal fracture. 4) Third metatarsal fracture. 5) Chronic obstructive pulmonary disease. 6) Tobacco dependence syndrome. 7) Gastrocnemius equinus. PROCEDURES: 1) Gastrocnemius resection. 2) Tarsometatarsal joint arthrodesis of one, two and three. 3) Lisfranc fracture dislocation. SURGEON: Wan Ross DPM. PROJECT MANAGEMENT SPECIALIST: None. ANESTHESIA: Spinal block with a postoperative popliteal block. HEMOSTASIS: Thigh tourniquet set 300 mm of Mercury for 115 total tourniquet minutes. ESTIMATED BLOOD LOSS: Less than 10 cc. MATERIALS: Eloise fusion plates along with a combination of locking and nonlocking screws, 1 cc of Allograft and bone marrow aspirate. INJECTABLES: See anesthesia report for details. INDICATION FOR SURGERY: Ksenia is a very pleasant 61-year-old female patient who presented to my office approximately a week ago today. The patient indicates that she did have an injury and she fell as a result. After the fall she had significant pain to the right foot which she sought out treatment for. She went to an emergency department and was told she had fractures. She reported to the office of Dr. Kraus who did not feel comfortable with addressing her issue and recommended follow up with Dr. Proctor. The patient was under the impression that things would heal on their own without complication to her right foot with weight bearing and a boot and she did not end up following up with Dr. Proctor. The patient presented approximately five weeks later to my clinic with increasing pain as time had gone on to the right foot. At that time x-rays were taken demonstrating a Lisfranc fracture dislocation. At this time options were discussed were discussed with the patient in regards to her issue. Together we opted to proceed with surgical intervention consisting of a fusion of tarsometatarsal joints of one, two and three to avoid the complication of chronic pain and deformity to the foot. The patient does have a complex medical history with severe chronic obstructive pulmonary disease. For that reason a discussion with cheese cutter and anesthesia team, we agreed to proceed with a spinal block and postoperatively a popliteal block for pain control. The patient and daughter understand all risks, complications and benefits of the procedure including but not limited to infection, hematoma, seroma, possibility of delayed skin healing, possibility of nonskin healing, possibility of delayed bone healing or nonbone healing in a situation called nonunion. The patient understands that there are no guaranteed as to the outcome of surgical intervention. Sometimes hardware becomes prominent and painful and required to be taken out and need for potential re-intervention is always a possibility. It is with that we decided to proceed. DESCRIPTION OF PROCEDURE AND FINDINGS: The patient was brought into the OR and placed on the OR table in the supine position. At this time the patient was seated at the mid-section of the bed where a spinal block was performed by our CYLINDER VALVE REPAIRER. At this time the patient did feel significant anesthesia to the bilateral lower extremities. At this time the right lower extremity had a well-padded thigh tourniquet was applied to the right thigh and the tourniquet was set to 300 mm of Mercury. At this time the right lower extremity was prepped and draped in the typical sterile fashion and the extremity was lowered onto the surgical field. At this time a skin marker was utilized to draw a line at the posterior medial aspect of the palpable dell of the gastrocnemius muscle or just distal to the palpable dell of the gastrocnemius muscle. This was carried down approximately 3 cm in length. A 15 blade was utilized to make an incision. This incision was deepened utilizing blunt dissection to the level of the fascia. The fascia was then incised utilizing a 15 blade and once again blunt dissection was carried down through the fascial plane. The pediatric speculum was then introduced into the posterior aspect of the calf where the gastrocnemius aponeurosis was identified. A 10 blade was then introduced and under direct visualization was dissected until the muscle belly was identified. Sural nerve was under clear visualization during this process and was not damaged during this portion of the procedure. Copious amounts of sterile saline were utilized to flush the surgical site. 2-0 Vicryl was then utilized to coapt the subcutaneous edges in a simple buried-type fashion and a 3-0 Nylon was then utilized in a horizontal mattress-type fashion to coapt the skin edges in this area. At this time attention was then directed to the lateral calcaneus where under fluoroscopic guidance a stab incision was made at the central aspect of the calcaneal tuber this was carried down to the level of bone utilizing blunt dissection being careful not to damage the sural nerve. A trocar was introduced and 50 cc of bone marrow aspirate was pulled off of the calcaneus. At this time the Esmarch was utilized to exsanguinate the leg and the tourniquet was inflated to 300 mm of Mercury. At this time surgical planning was made at the dorsal medial aspect of the mid-foot as well as between tarsometatarsal joint two and three. Linear incisions approximately 4 cm in length were made in order to gain exposure to the fracture dislocation site. At this time dissection of the medial capsule was first performed of the first tarsometatarsal joint. Gaining access to this joint we then returned to the central incision and dissection was carried out with careful dissection not to damage any neurovascular structures with blunt and sharp dissection to the level of the tarsometatarsal joint. At this time the fractures were identified. Any of the scar tissue that was in the site was resected. Cartilage was then denuded from the site utilizing a combination of rongeurs, curette and osteotomes. Following this, copious amounts of sterile saline was utilized to flush out the surgical site. The same procedure took place at the medial cuneiform and first metatarsal this was carried out with a sagittal saw, curettes and rongeur. Copious amounts of sterile saline were utilized to flush this site as well. Attention was then redirected to the second and third tarsometatarsal joints where a 2 mm drill was utilized to fenestrate the joint surfaces. The Allograft soaked in bone marrow aspirate was then introduced into the surgical site at the second and third tarsometatarsal joints this was compressed utilizing compromise and locking plates. Dorsal locking plates were introduced over the second metatarsal securing with a nonlocking screw to start and then locking screw at the proximal aspect. Eccentric hole was then utilized to gain compression through these sites. At this time a point of reduction forceps was then utilized to gain compression through the second metatarsal and medial cuneiform interface and a 4.0 mm headed screw utilized to close down the gapping in this site this was checked under fluoroscopic guidance and deemed to be adequate. Following this a tenaculum was utilized to compress the first and second metatarsals and a headed compression screw was introduced into the first metatarsal from a dorsocentral to plantar proximal orientation gaining great compression through the first tarsometatarsal joint. A four-hole plate was then introduced on the dorsomedial aspect of this joint in order to protect the interfragmentary screw through sheer forces. Following this, all views were checked under fluoroscopic guidance and deemed to be in adequate position. Copious amounts of sterile saline were utilized to flush the surgical sites. The skin was then coapted in a simple buried-type fashion utilizing 4.0 Monocryl and then coapted at the level of the skin utilizing 3-0 Nylon in a horizontal mattress-type fashion. The patient's leg was then cleansed utilizing sterile saline and dried. A dressing consisting of Betadine, Adaptic, 4x4, Kerlix and a well-padded posterior splint with Sugar-Tong was applied to the patient's right lower extremity with the foot orthogonal relative to the longitudinal axis of the leg. At this time the patient was provided a popliteal and saphenous block by the anesthesia provider and was returned to the postoperative anesthesia care unit with vital signs stable and vascular status intact. The patient handled the anesthesia as well as the procedure without significant complication. Postoperative orders as indicated in the patient's discharge chart.
--- NOTE | 2021-12-30 09:45 | XRAY ---
3 minutes and 51 seconds of fluoroscopy was used in surgery for a right foot gastrocnemius resection and 1st-3rd tarsometatarsal arthrodesis
== END 2021-12-27 16:15 | disposition home or self-care (01) ==
LOC: SDC 06:13
PROVIDERS: ATTEND Podiatrist Foot & Ankle Surgery
DX: S93.324A Dislocation of tarsometatarsal joint of right foot, initial encounter (principal); M79.671 Pain in right foot; S92.324A Nondisplaced fracture of second metatarsal bone, right foot, initial encounter for closed fracture; S92.334A Nondisplaced fracture of third metatarsal bone, right foot, initial encounter for closed fracture; J44.9 Chronic obstructive pulmonary disease, unspecified; Z72.0 Tobacco use; M21.6X1 Other acquired deformities of right foot
CPT/HCPCS: 27687; 28615; 28730; 73630; 76000; C1713; 64450; 76942; J0171; J0330; J0690; J1100; J2250; J2405; J2704; J3010

== ENCOUNTER 2022-06-27 08:25 | Emergency (ER) | payer MEDICARE ==
--- NOTE | 2022-06-27 09:03 | XRAY ---
Indication: Pain following fall. Comparison: One day earlier 3 nonweightbearing views right foot unchanged again demonstrating osteopenia, pes planus, healing 2nd/3rd metatarsal base fractures with intact 1st-3rd tarsometatarsal hardware, 1st MTP degenerative changes, spurring base 5th metatarsal, heel spurs, talonavicular accessory ossicle, and soft tissue swelling. No new abnormalities.
--- NOTE | 2022-06-27 09:05 | XRAY ---
Indication: Pain following fall. Comparison: None 3 view right ankle demonstrates nondisplaced acute fracture tip medial malleolus with diffuse soft tissue swelling. Elsewhere osteopenia, tiny posterior/small plantar heel spurs, and tiny lateral malleolus tip heterotopic ossification. Foot reported separately.
--- NOTE | 2022-06-27 09:15 | ERPHSYRPT ---
- History of Present Illness Time Seen by Provider: 06/27/22 08:45 Source: patient Exam Limitations: no limitations Patient Subjective Stated Complaint: Left ankle pain Triage Nursing Assessment: Patient brought back to ED per EMS and transferred to bed with assist of 2. Patient A+O X 3. Patient's skin pink, warm and dry. Patient complains of left sided ankle pain/injury. Patient states she was walking around 0400 and her leg gave out causing her to fall. Patient complains of left sided ankle pain 07/26. Left ankle noted to be swollen. Physician History: Patient is a 61-year-old female who has Charcot's who is followed by Dr. Blas. This morning she had a spasm in the muscles of her legs and as a consequence of the fall injuring her right ankle she denies any other pain or discomfort or injury. She is most tender over the medial aspect of the ankle. She does have chronic deformity of the right foot and has had surgery there. Method of Injury: fell Occurred: just prior to arrival Quality: aching Severity of Pain-Max: moderate Severity of Pain-Current: moderate Lower Extremities Pain: ankle: right (Tenderness over the medial malleolus. There is some edema.) Modifying Factors: Improves With: immobilization, movement Associated Symptoms: unable to bear weight Allergies/Adverse Reactions: No Known Drug Allergies Allergy (Verified 06/27/22 08:36) Home Medications: ARIPiprazole [Aripiprazole] 5 mg PO DAILY 01/11/20 [History] Carbamazepine 200 mg [Tegretol 200 MG] 400 mg PO BID 01/11/20 [History] Duloxetine HCl 30 mg [Cymbalta 30 MG Capsule] 120 mg PO DAILY 01/11/20 [History] Pregabalin [Lyrica] 300 mg PO BID 01/11/20 [History] Tizanidine HCl 4 mg [Zanaflex 4 MG] 4 mg PO Q8HPRN PRN 01/11/20 [History] Trazodone HCl 50 mg [Desyrel 50 mg] 200 mg PO HS 06/30/20 [History] ALPRAZolam 0.25 MG [xanAX 0.25 MG] 0.25 mg PO TID 03/06/21 [History] Carvedilol 12.5 mg [Coreg 12.5 mg] 12.5 mg PO BID 03/06/21 [History] Levothyroxine Sodium [Euthyrox] 150 tab PO DAILY 07/04/21 [History] Carbamazepine 200 mg [Tegretol 200 MG] 200 mg PO HS 08/28/21 [History] Furosemide 40 mg [Lasix 40 MG] 80 mg PO BID 08/28/21 [History] Potassium Chloride 10 meq PO BID 08/28/21 [History] Benazepril HCl [Lotensin] 40 mg PO DAILY 09/12/21 [History] Hydroxychloroquine Sulfate 200 mg PO BID 09/12/21 [History] Atorvastatin Calcium [Lipitor] 20 mg PO HS 12/26/21 [History] Prednisone 20 mg [Deltasone 20 mg] 20 mg PO DAILY 12/26/21 [History] Hx Tetanus, Diphtheria Vaccination/Date Given: No Hx Influenza Vaccination/Date Given: Yes Hx Pneumococcal Vaccination/Date Given: No Immunizations Up to Date: Yes Travel Risk - International Travel Have you traveled outside of the country in past 3 weeks: No - Coronavirus Screening Are you exhibiting any of the following symptoms?: No Close contact with a COVID-19 positive Pt in past 14-21 Days: No - Vaccine Status Have you recieved a Covid-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: Yes 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 - Review of Systems Constitutional: No Fever, No Chills Eyes: No Symptoms Ears, Nose, & Throat: No Symptoms Respiratory: No Cough, No Dyspnea Cardiac: No Chest Pain, No Edema, No Syncope Abdominal/Gastrointestinal: No Abdominal Pain, No Nausea, No Vomiting, No Diarrhea Genitourinary Symptoms: No Dysuria Musculoskeletal: Joint Pain (Right ankle medial malleolus), No Back Pain, No Neck Pain Skin: No Rash Neurological: No Dizziness, No Focal Weakness, No Sensory Changes Psychological: No Symptoms Endocrine: No Symptoms All Other Systems: Reviewed and Negative - Past Medical History Pertinent Past Medical History: Yes Neurological History: Peripheral Neuropathy ENT History: No Pertinent History Cardiac History: Congestive Heart Failure, Hypertension Respiratory History: Bronchitis, CHF, COPD, Pneumonia Endocrine Medical History: Hypothyroidism Musculoskeletal History: No Pertinent History GI Medical History: No Pertinent History History: No Pertinent History Psycho-Social History: No Pertinent History Female Reproductive Disorders: No Pertinent History Other Medical History: trigeminal neuralgia - Past Surgical History Past Surgical History: Yes Neuro Surgical History: No Pertinent History Cardiac: No Pertinent History Respiratory: No Pertinent History Gastrointestinal: Appendectomy Genitourinary: No Pertinent History Musculoskeletal: No Pertinent History Female Surgical History: No Pertinent History Other Surgical History: elbow surgery. skin cancer removed - Social History Smoking Status: Current every day smoker How long have you smoked: 40 years Exposure to second hand smoke: No Drug Use: none Patient Lives Alone: Yes - Nursing Vital Signs Nursing Vital Signs: Initial Vital Signs Temperature 96.9 F 06/27/22 08:40 Pulse Rate 66 06/27/22 08:40 Respiratory Rate 20 06/27/22 08:40 Blood Pressure 131/70 06/27/22 08:40 O2 Sat by Pulse Oximetry 97 06/27/22 08:40 Pain Scale Pain Intensity 9 - Physical Exam General Appearance: mild distress Eyes, Ears, Nose, Throat Exam: moist mucous membranes Neck Exam: non-tender, supple Cardiovascular/Respiratory Exam: chest non-tender, normal breath sounds, regular rate/rhythm, no respiratory distress Gastrointestinal/Abdominal Exam: non-tender Back Exam: normal inspection, No vertebral tenderness Hips Exam: bilateral: non-tender, normal inspection, normal range of motion Legs Exam: bilateral leg: non-tender, normal inspection, normal range of motion Knees Exam: bilateral knee: non-tender, normal inspection, normal range of motion Ankle Exam: right ankle: pain, soft tissue tenderness, swelling, left ankle: non-tender, normal inspection, normal range of motion Foot Exam: right foot: deformity, left foot: soft tissue tenderness Neuro/Tendon Exam: normal sensation, normal motor functions, normal tendon functions Mental Status Exam: alert, oriented x 3, cooperative Skin Exam: normal color, warm, dry SpO2 Interpretation: normal SpO2: 97 O2 Delivery: Room Air Procedures - Splinting Time of Procedure: 09:20 Location of Splint: Right, Ankle, Lower Leg Type of Splint: Walking Boot/Shoe Splint Applied By: ED Nurse Pre-Proc Neuro Vasc Exam: normal Post-Proc Neuro Vasc Exam: neurovascular intact, unchanged from pre-exam - Course Nursing assessment & vital signs reviewed: Yes - Radiology Exams Right Foot X-ray Interpretation: Reviewed by me, Negative Right Ankle X-ray Interpretation: Reviewed by me (Small acute nondisplaced fracture of the tip of the medial malleolus) Ordered Tests: Active Orders 24 hr Category Date Time Status ANKLE (3 VIEWS) Stat Exams 06/27/22 08:27 Completed FOOT (MINIMUM 3 VIEWS) Stat Exams 06/27/22 08:27 Completed - Progress Progress: improved Discussed with Dr.: Other (Dr. Blas) Will see patient in: office Medical Desision Making - Discussion of managment Care discussed with:: specialist (Dr. Blas podiatry) Agreed on:: Treatment plan, need for follow-up Will see patient: In office - Social Determinants of Health Limited access to: transportation - Diagnostic Testing Diagnostic test were ordered, analyzed, and reviewed by me: No Radiological Interpretation: Reviewed by me - Risk of complications The pt has a mod risk of morbidity or mortality based on: Need for prescription drug management - Departure Departure Disposition: Home Clinical Impression: Fracture of malleolus of right ankle Condition: Stable Critical Care Time: No Referrals: KADEN SCHAFER GAS EXAMINER [Primary Care Provider] - Follow up/PCP as directed Instructions: Ankle Fracture (DC) Prescriptions: Tramadol HCl 50 mg [Ultram 50 mg] 50 mg PO Q6H 3 Days #12 tablet
[2022-06-27 13:04] VITALS: BP 141/76; PULSE 78; O2SAT 94
== END 2022-06-27 13:09 | disposition home or self-care (01) ==
LOC: ED 08:25
DX: S82.61XA Displaced fracture of lateral malleolus of right fibula, initial encounter for closed fracture (principal); Z59.82 Transportation insecurity; Z72.0 Tobacco use; Z79.899 Other long term (current) drug therapy; Z20.828 Contact with and (suspected) exposure to other viral communicable diseases; W19.XXXA Unspecified fall, initial encounter
CPT/HCPCS: 29515; 73610; 73630; 99283; L4386

== ENCOUNTER 2022-07-08 02:32 | Inpatient (IN) | payer MEDICARE ==
[2022-07-08] MEDS ORDERED: Lactated Ringers 1,000 ML IV SCH (10:30)
[2022-07-08] MEDS ORDERED: CEFAZOLIN 2 GM-D5W BAG** 2 GM/50 ML ML IV SCH ×2 (10:30)
[2022-07-08 10:47] LABS: Hematocrit 35.5 % (35-47); Hemoglobin 11.2 g/dL (12.0-16.0); Mean Cell Volume 91.7 fL (78-100); Mean Corpuscular Hemoglobin 28.9 pg (26-32); Mean Corpuscular Hgb Concent. 31.5 g/dL (32-36); Mean Platelet Volume 9.1 fL (7.5-11.0); Platelet Count 208 x10^3/uL (150-450); Red Blood Count 3.87 x10^6/uL (4.1-5.4); Red Cell Distribution Width 13.9 % (11.5-14.0)
[2022-07-08 11:22] LABS: ALBUMIN 3.7 g/dL (3.5-5.0); ALKALINE PHOSPHATASE 111 U/L (38-126); ANION GAP 10.5 MEQ/L (5-15); BLOOD UREA NITROGEN 13 mg/dL (7-17); CHLORIDE 88 mmol/L (98-107); Calcium 8.4 mg/dL (8.4-10.2); Carbon Dioxide 39 mmol/L (22-30); Creatinine 1 0.57 mg/dL (0.52-1.04); EST GLOMERULAR FILTRATION RATE > 60.0 ML/MIN; Glucose 93 mg/dL (74-106); NT PRO BNPII 88.2 pg/mL (<300); Potassium 3.7 mmol/L (3.5-5.1); SGOT/AST 28 U/L (14-36); SGPT/ALT 20 U/L (0-35); SODIUM 134 mmol/L (137-145); Total Protein 7.3 g/dL (6.3-8.2)
[2022-07-08] MEDS ORDERED: Versed 2 MG/2 ML Injection ONE (12:07)
[2022-07-08] MEDS ORDERED: DIPRIVAN 200 MG/20 ML IV ONE ×5 (13:06→16:41)
[2022-07-08] MEDS ORDERED: SUBLIMAZE 100 MCG/2 ML ONE (13:12)
[2022-07-08] MEDS ORDERED: Sodium Chloride 0.9% 1000 ML 1,000 ML ONE (14:35)
[2022-07-08] MEDS ORDERED: PHENYLEPHRINE HCL ONE (14:49)
[2022-07-08] MEDS ORDERED: VANCOCIN INJECTION IV ONE (16:20)
--- NOTE | 2022-07-08 18:37 | XRAY ---
Indication: Right ankle ORIF. Intraoperative fluoroscopy provided for 8 minutes 59 seconds. 84 digital spot images submitted for interpretation ultimately demonstrates lateral malleolus intramedullary perez with 5 transverse screws. 3rd tarsometatarsal fusion hardware removal with 2 remnant screw tips. Also 1st/2nd tarsometatarsal talus fusion with 2 screws. Correlate with intraoperative findings/report.
[2022-07-08] MEDS: Hydromorphone 1 mg/ml Injection IV PRN ×2 (19:41→23:41)
[2022-07-08] MEDS ORDERED: NORCO 7.5/325 MG TAB PO PRN (19:45)
[2022-07-08] MEDS ORDERED: Zanaflex 4 MG PO PRN (19:56)
[2022-07-08] MEDS ORDERED: PROVENTIL 2.5 MG/3 ML NEB IH PRN (20:13)
[2022-07-08] MEDS: NORCO 5/325 MG PO PRN (20:41)
[2022-07-08] MEDS: KEFZOL 1 GM/50 ML PREMIX** 1 GM/50 ML IVPB IV SCH (21:53)
[2022-07-08] MEDS: COREG 12.5 MG PO SCH (21:56)
[2022-07-08] MEDS: LYRICA 150MG PO SCH (21:56)
[2022-07-08] MEDS: xanAX 0.25 MG PO SCH (21:56)
[2022-07-08] MEDS: ZOCOR 20MG PO SCH (21:56)
[2022-07-08] MEDS: Klor Con PO SCH (21:57)
[2022-07-08] MEDS: DESYREL 50 MG PO SCH (21:57)
[2022-07-08] MEDS ORDERED: Levofloxacin 500MG/100ML D5W 500 MG/100 ML BAG IV SCH (22:00)
[2022-07-08] MEDS ORDERED: Tegretol 200 MG PO SCH (22:00)
[2022-07-08] MEDS: Tegretol 200 MG PO SCH (22:02)
[2022-07-08] MEDS: Lasix 40 MG PO SCH (22:04)
[2022-07-08] MEDS ORDERED: Lopressor 50 MG ONE (22:59)
[2022-07-08] MEDS ORDERED: Apresoline 25 MG TABLET PO PRN (23:09)
[2022-07-09] MEDS: NORCO 5/325 MG PO PRN ×3 (03:57→16:28)
[2022-07-09 05:40] LABS: BLOOD UREA NITROGEN 8 mg/dL (7-17); CHLORIDE 93 mmol/L (98-107); Carbon Dioxide 35 mmol/L (22-30); Creatinine 1 0.46 mg/dL (0.52-1.04); EST GLOMERULAR FILTRATION RATE > 60.0 ML/MIN; SODIUM 132 mmol/L (137-145)
[2022-07-09] MEDS: KEFZOL 1 GM/50 ML PREMIX** 1 GM/50 ML IVPB IV SCH ×3 (05:48→21:33)
[2022-07-09 05:52] LABS: Hematocrit 33.7 % (35-47); Hemoglobin 10.7 g/dL (12.0-16.0); Mean Cell Volume 91.1 fL (78-100); Mean Corpuscular Hemoglobin 28.9 pg (26-32); Mean Corpuscular Hgb Concent. 31.8 g/dL (32-36); Mean Platelet Volume 9.5 fL (7.5-11.0); Platelet Count 216 x10^3/uL (150-450); Red Cell Distribution Width 13.7 % (11.5-14.0); White Blood Count 14.1 x10^3/uL (4.0-10.5)
[2022-07-09 05:56] LABS: Calcium 8.1 mg/dL (8.4-10.2); Glucose 118 mg/dL (74-106); Potassium 3.9 mmol/L (3.5-5.1)
[2022-07-09 06:06] LABS: PREALBUMIN 15.07 mg/dL (17.6-36.0)
[2022-07-09] MEDS ORDERED: Apresoline 25 MG TABLET PO PRN (06:53)
[2022-07-09] MEDS: Tegretol 200 MG PO SCH ×3 (08:13→21:25)
[2022-07-09] MEDS: LYRICA 150MG PO SCH ×2 (09:24→21:23)
[2022-07-09] MEDS: Ecotrin 325 MG PO SCH (09:24)
[2022-07-09] MEDS: Lotensin PO SCH (09:25)
[2022-07-09] MEDS: SYNTHROID 150 MCG PO SCH (09:26)
[2022-07-09] MEDS: Abilify 10 MG PO SCH (09:26)
[2022-07-09] MEDS: VITAMIN D PO SCH (09:26)
[2022-07-09] MEDS: Vitamin B-12 500 MCG PO SCH (09:26)
[2022-07-09] MEDS: Lasix 40 MG PO SCH ×2 (09:26→17:16)
[2022-07-09] MEDS: Klor Con PO SCH ×2 (09:26→21:23)
[2022-07-09] MEDS: xanAX 0.25 MG PO SCH ×3 (09:26→21:23)
[2022-07-09] MEDS: Cymbalta 30 MG Capsule PO SCH (09:27)
[2022-07-09] MEDS: COREG 12.5 MG PO SCH ×2 (09:27→21:23)
[2022-07-09] MEDS ORDERED: NON-FORMULARY ITEM (Aripiprazole [Aripiprazole] 5 MG Tablet) PO SCH (10:00)
[2022-07-09] MEDS ORDERED: CYANOCOBALAMIN 1000 MCG SL SCH (10:00)
[2022-07-09] MEDS ORDERED: NON-FORMULARY ITEM (Cholecalciferol (Vitamin D3)** [Vitamin D***] 400 UNIT Tablet) PO SCH (10:00)
[2022-07-09] MEDS ORDERED: VITAMIN D PO SCH (10:00)
--- NOTE | 2022-07-09 11:26 | OP ---
SURGERY DATE/TIME: 07/08/2022 1312 PREOPERATIVE DIAGNOSES: 1) Right bimalleolar ankle fracture equivalent. 2) Syndesmotic instability. 3) Delayed presentation tarsometatarsal joint dislocation. 4) Painful retained hardware. 5) Nonunion right tarsometatarsal joint. 6) Nicotine dependence. 7) Chronic obstructive pulmonary disease with oxygen dependence. 8) Noncompliant. POSTOPERATIVE DIAGNOSES: 1) Right bimalleolar ankle fracture equivalent. 2) Syndesmotic instability. 3) Delayed presentation tarsometatarsal joint dislocation. 4) Painful retained hardware. 5) Nonunion right tarsometatarsal joint. 6) Nicotine dependence. 7) Chronic obstructive pulmonary disease with oxygen dependence. 8) Noncompliant. PROCEDURES: 1) Open reduction internal fixation of bimalleolar fracture. 2) Syndesmotic open reduction internal fixation right ankle. 3) Hardware removal right foot. 4) Repair of nonunion. 5) Multiple transverse tarsometatarsal joint arthrodesis. SURGEON: Wan Ross DPM. GAS PUMPER: None. ANESTHESIA: MAC sedation with a spinal block. See anesthesia report for details. HEMOSTASIS: Thigh tourniquet set to 325 mm of Mercury for 120 total tourniquet minutes. ESTIMATED BLOOD LOSS: 150 cc. MATERIALS: 2-0 Monocryl, 3-0 Nylon, 2-0 Nylon, suture guard, Eloise Beaming System with a 7.0 x 120 mm cannulated fully threaded screw for the first medial column 4.5 x 134 mm for the second ray medial column, StaGraft cancellous chips as well as bone marrow aspirate and Conventus Flex-Thread fibular nail with two - 3.5 x 46 mm and 3.5 x 52 mm syndesmotic screws. INJECTABLES: See anesthesia report for details. INDICATION FOR PROCEDURE: Ksenia is a very pleasant 61-year-old female who has a very complicated medical history with most concerning to me nicotine dependence on oxygen therapy. The patient recently did have a fracture and dislocation of the tarsometatarsal joint that occurred in September of 2021. The patient presented as a delayed presentation. With the patients cigarette smoking I deemed her to be an inadequate candidate for surgical intervention. However, the patient indicated she would remain non-weightbearing and quit cold turkey in order to proceed with surgical intervention. The attempt was made however the patient was continuing to smoke as well as continuing to bear weight to the extremity. We did have a concern over a nonhealing wound that grew methicillin-resistant Staphylococcus aureus and did probe to the plate. The patient was not willing at that time to proceed with surgical intervention therefore wound care was provided and thought to be uneventful until recently. The patient was seen prior to recent incident that brought us to the OR quickly today and discussion was held in regards to the foot. The patient made agreement to proceed with removal of hardware as well as revision of the tarsometatarsal joint along with bone biopsy in order to check to see if there is any bone infection over the second tarsometatarsal joint where there had been significant amount of pain and questionable healing. At this time, we were planning on proceeding within several weeks awaiting scan and medical clearances. However a day following after our visit, the patient did have an episode where she states her knee buckled and she fell to the floor. The patient indicated that this occurs on a weekly basis and has not had any complications or trauma as a result. However this time she had significant amount of right ankle pain. The patient presented to the emergency room where she was diagnosed with a medial malleolar fracture. On independent inspection, I did notice that there was a lateral malleolar fracture as well and significant gapping of the talus in a varus position. For that reason I did deem likely a surgical issue secondary to the bimalleolar equivalent that she sustained. Discussion was had with the patient in regards to options and the patient indicates that she would like to proceed with both the ankle fracture reduction as well as an attempt to salvage the nonunion at the midfoot of the right foot. It is with that the patient was made aware of all risks, complications and benefits of surgical intervention including but not limited to infection, hematoma, seroma, possibility of delayed wound healing, nonwound healing, possibility of need for surgical intervention at a later date in order to better improve her outcome. I have discussed this with the patient and would like this to be her last surgery in regards to these issues particularly at the midfoot. The patient understands and agrees. She agreed to bone biopsy during the procedure as well as a short to moderate stay at a nursing facility in order to improve her chances of success with quitting cigarette smoking as well as non-weightbearing. The patient lives alone and does not have any assistance to successfully do this on her own and amenable for admission to a rehab facility during this period of time. Plenty of time was allowed for the patient to ask questions which were answered to her apparent satisfaction. It is with that we decided to proceed with surgical intervention. DESCRIPTION OF PROCEDURE: The patient was brought into the OR and placed on the OR table and seated up in order to perform a spinal block. See anesthesia report for details on this portion of the procedure. At this time the patient was laid in supine position on the table. Monitored anesthesia care was provided until the patient was sedated. The right lower extremity was prepped and draped in the typical sterile fashion. A well-padded thigh tourniquet was applied to the patient's right thigh and the tourniquet was set to 325 mm of Mercury. At this time, attention was directed under fluoroscopic guidance. Two views of the lateral fibula where the fibular fracture was identified this was held into place externally. A K-wire was introduced into the distal tip of the fibula and intramedullary. Drills and reaming took place and Conventus Flex-Thread intramedullary nail was introduced. A combination of locking and nonlocking screws were then introduced into the distal tip of the fibula. The syndesmosis was then stressed and deemed to be inadequate and disrupted. For that reason two - 3.5 x 46 mm and 3.5 x 52 mm were introduced at the level of the syndesmosis this was checked and stressed once again and seen to have no more gapping of the syndesmosis. Varus stress was applied to the ankle which demonstrated no gapping of the medial malleolar fragment and stable. Lateral ankle ligaments were definitely out based on valgus stress testing. We did not consent for this procedure and we were unable to contact the patient's daughter. For that reason, we moved forward attention to the forefoot. At this time an Esmarch was utilized to exsanguinate the leg. The incisions were deepened along the soft tissue planes that were utilized on previous attempts of correcting the tarsometatarsal joint. At this time nearly 1.5 inches of scar tissue was encountered. The scar tissue was cleaned out utilizing sharp dissection, debulking a majority of the scar tissue in this area. We did identify the hardware in two places from the incision at the dorsomedial aspect of the right foot and was able to remove the hardware from the second tarsometatarsal joint as well as the first tarsometatarsal joint without complication. Scar tissue was within the joint for both second and first tarsometatarsal joint. The nonunion was cleaned out utilizing a combination of rongeurs, curettes, sagittal saw, sharp and blunt dissection. After prepping the joint significantly, paprika sign was seen at the bone edges and 2.0 mm drill bit was utilized to fenestrate the surfaces of the union site and then a combination of StaGraft cancellous chips and bone marrow aspirate were introduced into the first tarsometatarsal joint site. Prior to placing the graft, a bone biopsy was taken of the second tarsometatarsal joint where previous infection was present and pathology and culture of bone was taken. The K-wire was introduced into the distal tip of the first metatarsophalangeal joint and under multiple views deemed to be within the talus and correcting the position of the first tarsometatarsal joint. A 7.0 x 120 mm screw was introduced into the intramedullary area and gaining compression in this plate. The same procedure was performed utilizing a K-wire in the second ray and a 4.5 x 130 mm fully threaded cannulated stainless steel screw was introduced to the distal tip. Sterile saline was utilized to flush the surgical site. Final shots were taken on fluoroscopy. 2-0 Vicryl was utilized to coapt the subcutaneous skin edges along with Sutureguard which was secured and 2-0 Nylon was utilized to coapt the skin edges in a vertical mattress-type incision. Following this, a 3-0 Nylon was then utilized to coapt the skin edges in a horizontal mattress-type fashion. All other incision sites were coapted utilizing 3-0 Nylon in a simple interrupted-type fashion. Following this a dressing consisting of Betadine, Adaptic, 4x4, Kerlix and a well-padded posterior splint with Sugar-Tong was applied to the patient's right ankle. The patient was then reversed from anesthesia and returned to the postoperative anesthesia care unit with vital signs stable and vascular status intact. The patient handled the anesthesia as well as the procedure without significant complication. Postoperative orders as indicated in the patient's discharge chart.
--- NOTE | 2022-07-09 11:29 | XRAY ---
Indication: care home placement. Comparison: October 05, 2021 Portable chest remains hyperinflated and clear. Heart not enlarged. Bony thorax intact again with osteopenia and degenerative changes. New minimal subjacent emphysema overlies left shoulder. Impression: New left shoulder subcutaneous emphysema of uncertain etiology. Remaining chest nonacute.
[2022-07-09] MEDS: Hydromorphone 1 mg/ml Injection IV PRN (11:53)
[2022-07-09] MEDS: BACTRIM DS TABLET PO SCH ×2 (14:42→21:23)
[2022-07-09] MEDS: DESYREL 50 MG PO SCH (21:22)
[2022-07-09] MEDS: ZOCOR 20MG PO SCH (21:23)
[2022-07-10] MEDS: KEFZOL 1 GM/50 ML PREMIX** 1 GM/50 ML IVPB IV SCH ×3 (05:27→22:55)
[2022-07-10] MEDS: Tegretol 200 MG PO SCH ×2 (09:26→16:21)
[2022-07-10] MEDS: Lotensin PO SCH (09:28)
[2022-07-10] MEDS: Abilify 10 MG PO SCH (09:28)
[2022-07-10] MEDS: Cymbalta 30 MG Capsule PO SCH (09:29)
[2022-07-10] MEDS: LYRICA 150MG PO SCH ×2 (09:29→22:55)
[2022-07-10] MEDS: VITAMIN D PO SCH (09:29)
[2022-07-10] MEDS: Ecotrin 325 MG PO SCH (09:29)
[2022-07-10] MEDS: Lasix 40 MG PO SCH ×2 (09:30→16:42)
[2022-07-10] MEDS: xanAX 0.25 MG PO SCH ×3 (09:30→22:55)
[2022-07-10] MEDS: SYNTHROID 150 MCG PO SCH (09:30)
[2022-07-10] MEDS: BACTRIM DS TABLET PO SCH ×2 (09:30→22:54)
[2022-07-10] MEDS: Vitamin B-12 500 MCG PO SCH (09:31)
[2022-07-10] MEDS: COREG 12.5 MG PO SCH ×2 (09:31→22:54)
[2022-07-10] MEDS: Klor Con PO SCH ×2 (09:31→22:55)
[2022-07-10] MEDS: NORCO 5/325 MG PO PRN (09:35)
--- NOTE | 2022-07-10 11:05 | XRAY ---
Indication: PICC line placement. Comparison: One day earlier. Portable chest demonstrates new left arm PICC line with tip projecting over SVC. Remaining heart and lungs unremarkable. No new/acute cardiopulmonary abnormalities.
[2022-07-10] MEDS: DESYREL 50 MG PO SCH (22:55)
[2022-07-10] MEDS: ZOCOR 20MG PO SCH (22:55)
--- NOTE | 2022-07-10 23:26 | PCM.NOTE ---
Date and Time: 07/10/220 Subjective Assessment: doing ok - Review of Systems Constitutional: No Fever, No Chills Eyes: No Symptoms Ears, Nose, & Throat: No Symptoms Respiratory: No Cough, No Short Of Breath Cardiac: No Chest Pain, No Edema, No Syncope Abdominal/Gastrointestinal: No Abdominal Pain, No Nausea, No Vomiting, No Diarrhea Genitourinary Symptoms: No Dysuria Musculoskeletal: No Back Pain, No Neck Pain Skin: No Rash Neurological: No Dizziness, No Focal Weakness, No Sensory Changes Psychological: No Symptoms Endocrine: No Symptoms Hematologic/Lymphatic: No Symptoms Immunological/Allergic: No Symptoms Objective Exam General Appearance: no apparent distress, alert Neurologic Exam: alert, oriented x 3, cooperative, normal mood/affect, nml cerebellar function, sensation nml, No motor deficits Skin Exam: normal color, warm, dry Wound Assessment: Skin/Wound Assessment Wound/Incision Assessment Start: 07/09/22 04:25 Text: Status: Active Freq: Q6H Protocol: Document 07/10/22 22:00 LB (Rec: 07/10/22 22:52 LB [id number]) Wound/Incision Assessment Right Foot Wound Assessment Shift Assessment Wound Type Incision Wound Stage Non Pressure Wound Dressing Status Dry & Intact Drainage Amount None Drainage Odor None/Absent General Appearance Clean/Dry Comment S/P ORIF right foot. Dr Parr surgical dressing CDI.- remains true Wound Photo Photo Taken No Eye Exam: PERRL, EOMI, eyes nml inspection Ears, Nose, Throat Exam: normal ENT inspection, pharynx normal, moist mucous membranes Neck Exam: normal inspection, non-tender, supple, full range of motion Respiratory Exam: normal breath sounds, lungs clear, No respiratory distress Cardiovascular Exam: regular rate/rhythm, normal heart sounds Gastrointestinal/Abdomen Exam: soft, No tenderness, No mass Extremity Exam: normal inspection, normal range of motion Back Exam: normal inspection, normal range of motion, No CVA tenderness, No vertebral tenderness Pelvic Exam: deferred Rectal Exam: deferred OBJECTIVE DATA Vital Signs: Vital Signs - 24 hr Temp Pulse Resp BP Pulse Ox 07/10/22 20:00 98.7 F 82 20 110/56 92 L 07/10/22 18:28 72 18 95 07/10/22 16:00 98.4 F 76 20 113/54 92 L 07/10/22 11:53 97.8 F 83 22 122/55 88 L 07/10/22 08:50 90 L 07/10/22 07:59 97.8 F 82 19 123/59 89 L 07/10/22 07:01 71 22 91 L 07/10/22 04:00 97.5 F 76 20 122/58 91 L 07/10/22 00:00 97.7 F 74 28 H 110/55 92 L Pain Assessment - Last Documented Pain Intensity 0 Pain Scale Used 0-10 Pain Scale Intake and Output: Intake & Output 07/08/22 07/09/22 07/10/22 07/11/22 11:59 11:59 11:59 11:59 Intake Total 1538 1400 460 Output Total 1300 1900 Balance 238 -500 460 Weight 87.6 kg 91.3 kg Radiology Exams: Radiology Procedures Category Date Time Status CHEST 1 VIEW (PORTABLE) Stat Exams 07/10/22 10:45 Completed CHEST 1 VIEW (PORTABLE) Urgent Exams 07/09/22 10:18 Completed Multi-Disciplinary Progress Notes: Multi-Disciplinary Progress Notes 07/10/22 15:10 Physical Therapy Note by Ernestina(Meo#[id number]),Hazel PT. SEEN BY P.T. THIS P.M. IN A.M. PT. HAD PICC LINE PLACED. PT. AGREEABLE TO WORK W/ P.T. IN P.M. CONT. W/ IMMOBILIZER IN PLACE R ANKLE. PT. PERFORMED SUPINE TO SIT W/ MIN-MOD ASSIST FOR R LE MOVEMENT TO SIDE OF BED W/ HOB ELEVATED. PT. NEEDED TO REST BEFORE GETTING UP D/T INCREASED R ANKLE PN W/ HANGING IN DEPENDENT POSITION. SIT TO STAND PERFORMED W/ MOD ASSIST - NWB R LE. PT. REQUIRED MIN-MOD ASSIST X 2 TO PIVOT W/ RW TO BEDSIDE COMMODE. ABLE TO PERFORM CONSTANCE-CARE W/ SBA AFTER URINATING. PT. THEN PERFORMED TRANSFER TO RECLINER W/ MIN-MOD ASSIST X 2 AGAIN W/ RW. PT. REQUIRES V.C. FOR HAND PLAC EMENT FOR SAFETY AND TO PIVOT BACKWARD SO LES IN CONTACT W/ CHAIR BEFORE SITTING. PT. TO D/C TO [facility] TO CONT. REHAB 07/11/22. WILL CONT. P.T. UNTIL D/C TO ADDRESS WEAKNESS AND FUNCTIONAL DEFICITS TO PREP FOR REHAB STAY. Initialized on 07/10/22 15:10 - END OF NOTE 07/10/22 13:28 Case Management Note by Ayesha Lopez DR. ROUNDED- OKAY WITH DC WHEN KAROLYN READY, KNOWS WILL LIKELY BE [place] AM- OK TO DC AT THAT TIME Initialized on 07/10/22 13:28 - END OF NOTE 07/10/22 13:27 Case Management Note by Ayesha Lopez [facility] TO [facility] Initialized on 07/10/22 13:27 - END OF NOTE 07/10/22 10:35 Case Management Note by Ayesha Lopez S/W [facility]- THEY PLAN TO PICK PATIENT UP AT 1300 IN THE [place] 07/11 Initialized on 07/10/22 10:35 - END OF NOTE 07/10/22 08:53 Case Management Note by Ayesha Lopez S/W DR. PARR- HE CONTINUES TO PLAN FOR PATIENT TO BE ABLE TO DC TO [place] TOMORROW WITH INVANZ 1 GM IV DAILY X 21 DAYS Initialized on 07/10/22 08:53 - END OF NOTE 07/10/22 08:30 (created 07/10/22 08:48) Respiratory Note by Shruti Liu PT'S O2 SAT ON 3LPM VIA NASAL CANNULA WHILE AT REST WAS 87%. OXYGEN INCREASED TO 4LPM VIA NASAL CANNULA AND O2 SAT INCREASED TO 90%. 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
[2022-07-11 04:27] VITALS: O2SAT 92
[2022-07-11] MEDS: KEFZOL 1 GM/50 ML PREMIX** 1 GM/50 ML IVPB IV SCH (06:09)
[2022-07-11] MEDS: Tegretol 200 MG PO SCH (07:58)
[2022-07-11 08:03] VITALS: PULSE 72
[2022-07-11] MEDS: SYNTHROID 150 MCG PO SCH (09:55)
[2022-07-11] MEDS: Lotensin PO SCH (09:56)
[2022-07-11] MEDS: Ecotrin 325 MG PO SCH (09:57)
[2022-07-11] MEDS: COREG 12.5 MG PO SCH (09:57)
[2022-07-11] MEDS: Vitamin B-12 500 MCG PO SCH (09:57)
[2022-07-11] MEDS: VITAMIN D PO SCH (09:57)
[2022-07-11] MEDS: Abilify 10 MG PO SCH (09:57)
[2022-07-11] MEDS: LYRICA 150MG PO SCH (09:57)
[2022-07-11] MEDS: Klor Con PO SCH (09:57)
[2022-07-11] MEDS: Cymbalta 30 MG Capsule PO SCH (09:58)
[2022-07-11] MEDS: BACTRIM DS TABLET PO SCH (09:58)
[2022-07-11] MEDS ORDERED: Invanz *** 1 G in Sodium Chloride 100ML MINI-BAG PLUS 100 ML IV SCH (10:00)
[2022-07-11] MEDS ORDERED: Lasix 40 MG PO SCH (10:00)
--- NOTE | 2022-07-11 10:00 | PCM.NOTE ---
Date and Time: 07/11/22 0955 Subjective Assessment: Ksenia is a very pleasant 61-year-old female who presents with admission for ankle fracture in the setting of nonunion to a delayed presentation lisfranc's fracture dislocation with subsequent non union due to patients continued smoking and noncompliance with weight bearing. Patient indicates that she does often get a sensation of her knees buckling and she falls into a squat position. She indicates that this occurred to her on Thursday last week and as a result of falling she had a twisting injury to her right ankle. Patient felt an immediate pop and pain she presented to the emergency room where she was diagnosed with an isolated medial malleoli are fracture. Patient's x-rays were reviewed on follow up on thursday demonstrating a bimalleolar fracture with a transverse fracture at the lateral malleolus as well as syndesmotic instability. Patient has been ambulating on this extremity and there is a significant amount of clear space widening. Patient had a delayed Lisfranc's fracture that was attempted to be reduced however patient was noncompliant and a cigarette smoker on oxygen and failed this therapy with nonunions to the first and second tarsometatarsal joint. This hardware continues to be broken and hardware is backing out. No further worsening of this deformity and concern of osteomyelitis to the 2nd tarsometatarsal joint where there was difficulty healing a wound that got infected with MRSA. Patient was scheduled for surgical intervention for this issue later on this month. She currently denies any constitutional symptoms of infection. She is on 2 to 3 L of oxygen and is adamant about quitting cigarette smoking at this time. She currently denies any other pedal complaints at this time Physical Exam - Narrative Narrative Physical Exam: Podiatry Physical Exam Vascular: DP and PT pulses non-palpable b/l. CFT <5 seconds b/l. Skin temperature warm to cool from the proximal tibial tuberosity to distal toes b/l. Diminished pedal hair growth b/l. Varicosities noted to lower legs b/l. No cellulitis, proximal streaking or lymphangitis noted. No significantedema noted. No lymphadenopathy on palpation of the popliteal and inguinal lymph nodes b/l. Neurological: Protective sensation diminished as indicated with Norborne-Bang 5.07 monofilament b/l. Vibratory sensation is diminished. Patellar and achilles reflexes are brisk. Lower extremity temperature sensation diminished b/l. Dermatological: Skin appears supple. Surgical incisions noted remain co apt with no evidence of infection or dehiscence.Stitches remain clean dry and intact. No evidence of active bleeding. No open lesions noted. Webspaces are clean, dry and intact b/l. Musculoskeletal: Clinically unstable pain with abduction of forefoot particularly with first tarsometatarsal joint motion. Subluxation of the first ray plantarly within the arch. Gross deformity of the foot with abduction of forefoot relative to rear foot. Ankle fracture with bimalleolar equivalent and syndesmotic instability with pain on palpation of medial and lateral ankle joint and significant pain with medial to lateral tibiofibular squeeze test at level of ankle. Otherwise no pain with direct palpation to any specific areas. Imaging 3 views nonweightbearing right foot demonstrating backing out of midtarsal cuneiform screw as well as dorsal subluxation of distal portion of third tarsometatarsal joint arthrodesis site. Hardware has failed to the dorsal aspect of the right foot. Obvious nonunion of the first tarsometatarsal joint with backing out of hardware and plantar subluxation of the first ray relative to the rear foot. There is evidence of callus at the first second and third tarsometatarsal joints. Adequate apposition of the joints with evidence of bone healing. No other soft tissue or osseous abnormalities identified at this time Imaging 3 views nonweightbearing ankle demonstrating transverse lateral malleolus fracture as well as avulsion fracture to the anterior colliculus of the medial malleolus. There is significant widening of the tibiotalar joint space indicative of an unstable fracture. Continuing unstable midfoot with backing out and hardware failure. OBJECTIVE DATA Vital Signs: Vital Signs - 24 hr Temp Pulse Resp BP Pulse Ox 07/11/22 08:01 72 18 92 L 07/11/22 07:52 97.3 F 75 18 98/54 92 L 07/11/22 04:00 97.9 F 78 22 114/53 92 L 07/11/22 00:00 97.1 F 84 22 124/57 93 L 07/10/22 20:00 98.7 F 82 20 110/56 92 L 07/10/22 18:28 72 18 95 07/10/22 16:00 98.4 F 76 20 113/54 92 L 07/10/22 11:53 97.8 F 83 22 122/55 88 L Pain Assessment - Last Documented Pain Intensity 0 Pain Scale Used 0-10 Pain Scale Intake and Output: Intake & Output 07/08/22 07/09/22 07/10/22 07/11/22 11:59 11:59 11:59 11:59 Intake Total 1538 1400 1060 Output Total 1300 1900 900 Balance 238 -500 160 Weight 87.6 kg 91.3 kg Radiology Exams: Radiology Procedures Category Date Time Status CHEST 1 VIEW (PORTABLE) Stat Exams 07/10/22 10:45 Completed CHEST 1 VIEW (PORTABLE) Urgent Exams 07/09/22 10:18 Completed Multi-Disciplinary Progress Notes: Multi-Disciplinary Progress Notes 07/10/22 15:10 Physical Therapy Note by Ernestina(L#[id number])Hazel PT. SEEN BY P.T. THIS P.M. IN A.M. PT. HAD PICC LINE PLACED. PT. AGREEABLE TO WORK W/ P.T. IN P.M. CONT. W/ IMMOBILIZER IN PLACE R ANKLE. PT. PERFORMED SUPINE TO SIT W/ MIN-MOD ASSIST FOR R LE MOVEMENT TO SIDE OF BED W/ HOB ELEVA KATE. PT. NEEDED TO REST BEFORE GETTING UP D/T INCREASED R ANKLE PN W/ HANGING IN DEPENDENT POSITION. SIT TO STAND PERFORMED W/ MOD ASSIST - NWB R LE. PT. REQUIRED MIN-MOD ASSIST X 2 TO PIVOT W/ RW TO BEDSIDE COMMODE. ABLE TO PERFORM CONSTANCE-CARE W/ SBA AFTER URINATING. PT. THEN PERFORMED TRANSFER TO RECLINER W/ MIN-MOD ASSIST X 2 AGAIN W/ RW. PT. REQUIRES V.C. FOR HAND PLACEMENT FOR SAFETY AND TO PIVOT BACKWARD SO LES IN CONTACT W/ CHAIR BEFORE SITTING. PT. TO D/C TO [facility] TO CONT. REHAB 07/11/22. WILL CONT. P.T. UNTIL D/C TO ADDRESS WEAKNESS AND FUNCTIONAL DEFICITS TO PREP FOR REHAB STAY. Initialized on 07/10/22 15:10 - END OF NOTE 07/10/22 13:28 Case Management Note by Ayesha Lopez DR. ROUNDED- OKAY WITH DC WHEN KAROLYN READY, KNOWS WILL LIKELY BE [place] AM- OK TO DC AT THAT TIME Initialized on 07/10/22 13:28 - END OF NOTE 07/10/22 13:27 Case Management Note by Ayesha Lopez CLINICAL WITH [facility] PAPERWORK FAXED TO [facility] Initialized on 07/10/22 13:27 - END OF NOTE 07/10/22 10:35 Case Management Note by Ayesha Lopez S/W NOTREES- THEY PLAN TO PICK PATIENT UP AT 1300 IN THE [place] 07/11 Initialized on 07/10/22 10:35 - END OF NOTE Assessment/Plan (1) Bimalleolar avulsion fracture of right ankle Current Visit: Yes Status: Acute Assessment & Plan: Patient examination and evaluation Recommending stay in halfway facility due to potential for bone infection and need for IV abx. Await bone pathology at this time Patient progressing without complication at this time s/p Bimalleolar ankle fracture reduction with syndesmotic open reduction internal fixation as well as hardware removal bone biopsy and repair of non union with multiple transverse tarsometatarsal joint arthrodesis. Patient will require IV abx at minimum 3-4 weeks following intervetnion Patient lives alone and was unable to remain non weight bearing following procedure initially. Patient requires halfway at this time to improve compliance reduce risk of infection and regain independence within approximately 60 day. Pain control as prescribed infection prophylaxis as prescribed DVT prophylaxis as prescribed. Will follow outpatient. Code(s): S82.841A - DISPLACED BIMALLEOLAR FRACTURE OF RIGHT LOWER LEG, INIT (2) Syndesmotic disruption of right ankle Current Visit: Yes Status: Acute Code(s): S93.431A - SPRAIN OF TIBIOFIBULAR LIGAMENT OF RIGHT ANKLE, INIT ENCNTR (3) MRSA (methicillin resistant Staphylococcus aureus) carrier Current Visit: Yes Status: Acute Code(s): Z22.322 - CARRIER OR SUSPECTED CARRIER OF METHICILLIN RESIS STAPH (4) Supplemental oxygen dependent Current Visit: Yes Status: Acute Code(s): Z99.81 - DEPENDENCE ON SUPPLEMENTAL OXYGEN (5) Nicotine dependence Current Visit: Yes Status: Acute Code(s): F17.200 - NICOTINE DEPENDENCE, UNSPECIFIED, UNCOMPLICATED (6) Dislocation of tarsometatarsal joint of right foot Current Visit: Yes Status: Acute Code(s): S93.324A - DISLOCATION OF TARSOMETATARSAL JOINT OF RIGHT FOOT, INIT (7) Pseudoarthrosis Current Visit: Yes Status: Acute Code(s): WOY5199 - (8) Pain in right foot Current Visit: Yes Status: Acute Code(s): M79.671 - PAIN IN RIGHT FOOT (9) Deformity of foot Current Visit: Yes Status: Acute Code(s): M21.969 - UNSPECIFIED ACQUIRED DEFORMITY OF UNSPECIFIED LOWER LEG (10) Non-compliant behavior Current Visit: Yes Status: Acute Code(s): R46.89 - OTHER SYMPTOMS AND SIGNS INVOLVING APPEARANCE AND BEHAVIOR
[2022-07-11] MEDS: xanAX 0.25 MG PO SCH (10:06)
[2022-07-11] MEDS: NORCO 5/325 MG PO PRN (11:28)
[2022-07-11 12:23] VITALS: BP 110/60
== END 2022-07-11 13:00 | DRG 481 ==
LOC: SDC 09:59 → EDSTATUS 10:08 → MED SURG 10:13 → OBSVTOIN 10:13
PROVIDERS: ADMIT General Practice; ATTEND Podiatrist Foot & Ankle Surgery
PROC: 0QSB06Z Reposition Right Lower Femur with Intramedullary Internal Fixation Device, Open Approach (ICD-10-PCS; principal; 2022-07-08)
PROC: 0SSF04Z Reposition Right Ankle Joint with Internal Fixation Device, Open Approach (ICD-10-PCS; 2022-07-08)
PROC: 0QSJ04Z Reposition Right Fibula with Internal Fixation Device, Open Approach (ICD-10-PCS; 2022-07-08)
PROC: 0SGK04Z Fusion of Right Tarsometatarsal Joint with Internal Fixation Device, Open Approach (ICD-10-PCS; 2022-07-08)
PROC: 0YP90YZ Removal of Other Device from Right Lower Extremity, Open Approach (ICD-10-PCS; 2022-07-08)
DX: S82.841A Displaced bimalleolar fracture of right lower leg, initial encounter for closed fracture (principal); J44.1 Chronic obstructive pulmonary disease with (acute) exacerbation; T84.84XA Pain due to internal orthopedic prosthetic devices, implants and grafts, initial encounter; L97.518 Non-pressure chronic ulcer of other part of right foot with other specified severity; S93.431A Sprain of tibiofibular ligament of right ankle, initial encounter; S93.324A Dislocation of tarsometatarsal joint of right foot, initial encounter; S92.314A Nondisplaced fracture of first metatarsal bone, right foot, initial encounter for closed fracture; E08.621 Diabetes mellitus due to underlying condition with foot ulcer; M79.671 Pain in right foot; M21.961 Unspecified acquired deformity of right lower leg; Z99.81 Dependence on supplemental oxygen; Z72.0 Tobacco use; Z22.322 Carrier or suspected carrier of Methicillin resistant Staphylococcus aureus; Z91.148 Patient's other noncompliance with medication regimen for other reason; Z79.899 Other long term (current) drug therapy
CPT/HCPCS: 20680; 27829; 28322; 28730; 36415; 71045; 73630; 76000; 80048; 80053; 83880; 84134; 85027; 87070; 87077; 87086; 87186; 93005; 94640; 94760; 97161; 97530; C1713; C1763; 99024; J0690; J1170; J1335; J1956; J2250; J2370; J2704; J3010; J3370; J7609; A9270-GY

== ENCOUNTER 2022-10-05 08:31 | Emergency (ER) | payer MEDICARE ==
[2022-10-05] MEDS ORDERED: Sodium Chloride 0.9% 1000 ML 1,000 ML IV STA (08:38)
[2022-10-05 08:40] VITALS: PULSE 69; RESP 18; TEMP 97.2; O2SAT 96
[2022-10-05 09:00] LABS: Absolute Neutrophil Ct (ANC) 11.14 x10^3/uL (1.4-6.9); BASOPHIL % 0.3 % (0.0-0.4); Basophil (Absolute #) 0.05 x10^3/uL (0-0.4); Eosinophil % 3.7 % (0.00-5.0); Eosinophil (Absolute #) 0.54 x10^3/uL (0-0.5); Hematocrit 37.1 % (35-47); Hemoglobin 11.6 g/dL (12.0-16.0); IMMATURE GRAN # 0.11 x10^3u/L (0.00-0.03); IMMATURE GRAN % 0.8 % (0.00-0.4); Lymphocyte (Absolute #) 1.75 x10^3/uL (1.0-4.6); Mean Cell Volume 90.3 fL (78-100); Mean Corpuscular Hemoglobin 28.2 pg (26-32); Mean Corpuscular Hgb Concent. 31.3 g/dL (32-36); Monocyte (Absolute #) 0.96 x10^3/uL (0.0-1.3); Monocytes % 6.6 % (0.0-12.0); Neutrophil % 76.6 % (36.0-66.0); Platelet Count 211 x10^3/uL (150-450); Red Blood Count 4.11 x10^6/uL (4.1-5.4); Red Cell Distribution Width 15.7 % (11.5-14.0); White Blood Count 14.6 x10^3/uL (4.0-10.5)
[2022-10-05] MEDS ORDERED: Sodium Chloride 0.9% 1000 ML 1,000 ML ONE (09:01)
--- NOTE | 2022-10-05 09:18 | ERPHSYRPT ---
- History of Present Illness Source: patient, EMS Patient Subjective Stated Complaint: PT HERE FOR A FALL LAST NIGHT, SHE STATES SHE HAS MUSCLE TWITCHING THAT CAUSED HER TO FALL, SHE WAS ABLE TO GET SELF UP IN CHAIR AND WAS FOUND BY NEIGHBOR THIS MORNING , CO PAIN TO LEFT ANKLE AND FOOT, Triage Nursing Assessment: PT ARRIVED PER AMBULANCE, ALERT, BUT SLEEPY, O2 AT 4 L NC PER HOME, TWITCHING OF ARMS AND LEGS OCCASSIONALY, SKIN W/D/P, HAS SWELLING AND ABRASION TO RIGHT ELBOW.SWELLING THAT SHE STATES IS NORMAL FOR HER TO RIGHT FOOT, BRUSING TO RIGHT FOOT, TENDERNESS TO LEFT FOOT AND ANKLE Timing/Duration: yesterday Associated Symptoms: denies symptoms Hx Tetanus, Diphtheria Vaccination/Date Given: No Hx Influenza Vaccination/Date Given: No Hx Pneumococcal Vaccination/Date Given: No Immunizations Up to Date: Yes - History of Present Illness Time Seen by Provider: 10/05/22 09:13 Physician History: Patient is 62-year-old female with significant past medical history of type 2 diabetes, type 2 diabetes neuropathy, history of recent ankle surgery on the right foot for which patient did develop some osteomyelitis and for which patient underwent rehab and IV antibiotic. Patient recently discharged home 2 weeks ago from rehab and she was at home by herself. She fell last night was able to get off from the floor but then she was feeling very weak so she started screaming after few hours the neighbors noticed the screaming in the call ambulance service and patient was brought into the emergency room. Patient states that she has a lots of twitching and which is causing her to fall. Patient denies any other symptoms. (SERGEY,CLARENCE) Allergies/Adverse Reactions: No Known Drug Allergies Allergy (Verified 10/05/22 08:36) Home Medications: ARIPiprazole [Aripiprazole] 10 mg PO DAILY 01/11/20 [History] Duloxetine HCl 30 mg [Cymbalta 30 MG Capsule] 120 mg PO DAILY 01/11/20 [History] Pregabalin [Lyrica] 300 mg PO BID 01/11/20 [History] Tizanidine HCl 4 mg [Zanaflex 4 MG] 4 mg PO Q8HPRN PRN 01/11/20 [History] Trazodone HCl 50 mg [Desyrel 50 mg] 200 mg PO HS 06/30/20 [History] ALPRAZolam 0.25 MG [xanAX 0.25 MG] 0.25 mg PO TID 03/06/21 [History] Carvedilol 12.5 mg [Coreg 12.5 mg] 12.5 mg PO BID 03/06/21 [History] Levothyroxine Sodium [Euthyrox] 150 tab PO DAILY 07/04/21 [History] Potassium Chloride 10 meq PO BID 08/28/21 [History] Benazepril HCl [Lotensin] 40 mg PO DAILY 09/12/21 [History] Atorvastatin Calcium [Lipitor] 40 mg PO HS 12/26/21 [History] Albuterol 2.5 mg/3 ml Neb [Proventil 2.5 mg/3 ml Neb] 2.5 mg IH Q6H PRN PRN 07/08/22 [History] Cholecalciferol (Vitamin D3) [Vitamin D] 5,000 unit PO DAILY 07/08/22 [History] Atorvastatin Calcium 40 mg PO DAILY 10/05/22 [History] Hydrocodone/Acetaminophen [Hydrocodone-Acetamin 10-325 mg] 1 ea TID 10/05/22 [History] Prednisone 20 mg [Deltasone 20 mg] 20 mg PO DAILY 10/05/22 [History] Tramadol HCl 50 mg [Ultram 50 mg] 1 ea BID 10/05/22 [History] Vit B12/Folic Acid/B6/Aa No.15 [Glycotrol Capsule] 1 ea DAILY 10/05/22 [History] Travel Risk - International Travel Have you traveled outside of the country in past 3 weeks: No - Coronavirus Screening Are you exhibiting any of the following symptoms?: No Close contact with a COVID-19 positive Pt in past 14-21 Days: No - Vaccine Status Have you recieved a Covid-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: 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[employer]: [employer] - Vaccination Dates Date of 2cond Vaccination (if applicable): 10/17/2020 - Review of Systems Constitutional: Weakness, No Fever, No Chills Eyes: No Symptoms Ears, Nose, & Throat: No Symptoms Respiratory: No Cough, No Dyspnea Cardiac: No Chest Pain, No Edema, No Syncope Abdominal/Gastrointestinal: No Abdominal Pain, No Nausea, No Vomiting, No Diarrhea Genitourinary Symptoms: No Dysuria Musculoskeletal: No Back Pain, No Neck Pain Skin: No Rash Neurological: Other (muscle twitching), No Dizziness, No Focal Weakness, No Sens ory Changes Psychological: No Symptoms Endocrine: No Symptoms All Other Systems: Reviewed and Negative - Past Medical History Pertinent Past Medical History: Yes Neurological History: No Pertinent History ENT History: Cataracts Cardiac History: High Cholesterol, Hypertension Respiratory History: COPD, Emphysema Endocrine Medical History: Hypoglycemia Musculoskeletal History: No Pertinent History GI Medical History: No Pertinent History History: No Pertinent History Psycho-Social History: Anxiety, Depression Female Reproductive Disorders: No Pertinent History Other Medical History: trigeminal neuralgia - Past Surgical History Past Surgical History: Yes Neuro Surgical History: No Pertinent History Cardiac: No Pertinent History Respiratory: No Pertinent History Gastrointestinal: Appendectomy Genitourinary: No Pertinent History Musculoskeletal: Orthopedic Surgery Female Surgical History: No Pertinent History Other Surgical History: elbow surgery. skin cancer removed. right foot surgery - 12/27/21 - Social History Smoking Status: Former smoker How long have you smoked: 25 Exposure to second hand smoke: No Drug Use: none Patient Lives Alone: Yes - Physical Exam General Appearance: no apparent distress, alert Eye Exam: PERRL/EOMI, eyes nml inspection Ears, Nose, Throat Exam: normal ENT inspection, TMs normal, pharynx normal, moist mucous membranes Neck Exam: normal inspection, non-tender, supple, full range of motion Respiratory Exam: normal breath sounds, lungs clear, No respiratory distress Cardiovascular Exam: regular rate/rhythm, normal heart sounds, normal peripheral pulses Gastrointestinal/Abdomen Exam: soft, normal bowel sounds, No tenderness, No mass Back Exam: normal inspection, normal range of motion, No CVA tenderness, No vertebral tenderness Extremity Exam: normal inspection, normal range of motion, pelvis stable Neurologic Exam: alert, oriented x 3, cooperative, normal mood/affect, nml cerebellar function, nml station & gait, sensation nml, No motor deficits Skin Exam: normal color, warm, dry, No rash Lymphatic Exam: No adenopathy SpO2: 96 - Nursing Vital Signs Nursing Vital Signs: Initial Vital Signs Temperature 97.2 F 10/05/22 08:34 Pulse Rate 69 10/05/22 08:34 Respiratory Rate 18 10/05/22 08:34 Blood Pressure 176/125 10/05/22 08:34 O2 Sat by Pulse Oximetry 96 10/05/22 08:34 Pain Scale Pain Intensity 5 - Course Nursing assessment & vital signs reviewed: Yes - Radiology Exams Chest X-ray Interpretation: Reviewed by me - CT Exams Head CT Interpretation: Tele-radiologist Report Ordered Tests: Active Orders 24 hr Category Date Time Status Product Safety Administrator STAT Care 10/05/22 08:38 Completed EKG-ER Only STAT Care 10/05/22 08:38 Completed POCT Glucose Check STAT Care 10/05/22 08:38 Completed ANKLE (3 VIEWS) Stat Exams 10/05/22 10:47 Completed CHEST 1 VIEW (PORTABLE) Stat Exams 10/05/22 09:12 Completed FOOT (MINIMUM 3 VIEWS) Stat Exams 10/05/22 10:48 Completed FOOT (MINIMUM 3 VIEWS) Stat Exams 10/05/22 10:48 Completed HEAD WITHOUT CONTRAST [CT] Stat Exams 10/05/22 09:12 Completed CBC W DIFF Stat Lab 10/05/22 08:56 Completed CMP Stat Lab 10/05/22 08:56 Completed Lactic Acid Urgent Lab 10/05/22 08:53 Completed MAGNESIUM Stat Lab 10/05/22 08:56 Completed Medication Summary Discontinued Medications Generic Name Dose Route Start Last Admin Trade Name Freq PRN Reason Stop Dose Admin Sodium Chloride 1,000 mls @ 999 mls/hr 10/05/22 08:38 10/05/22 11:11 Sodium Chloride 0.9% 1000 Ml IV 10/05/22 09:38 Infused .Q1H1M STA Infusion Sodium Chloride Confirm 10/05/22 09:01 Sodium Chloride 0.9% 1000 Ml Administered 10/05/22 09:02 Dose 1,000 mls @ ud .ROUTE .STK-MED ONE Ceftriaxone Sodium/Dextrose 1 g in 50 mls @ 100 mls/hr 10/05/22 09:41 10/05/22 11:11 Rocephin 1 Gm-D5w 50 Ml Bag IV 10/05/22 10:10 Infused STAT STA Infusion Ceftriaxone Sodium/Dextrose Confirm 10/05/22 09:46 Rocephin 1 Gm-D5w 50 Ml Bag Administered 10/05/22 09:47 Dose 1 g in 50 mls @ ud IV .STK-MED ONE Lab/Rad Data: Laboratory Result Diagrams 10/05/22 08:56 10/05/22 08:56 Laboratory Results 10/05/22 10/05/22 10/05/22 Range/Units 08:56 08:56 08:53 WBC 14.6 H (4.0-10.5) x10^3/uL RBC 4.11 (4.1-5.4) x10^6/uL Hgb 11.6 L (12.0-16.0) g/dL Hct 37.1 (35-47) % MCV 90.3 (78-100) fL MCH 28.2 (26-32) pg MCHC 31.3 L (32-36) g/dL RDW 15.7 H (11.5-14.0) % Plt Count 211 (150-450) x10^3/uL MPV 9.0 (7.5-11.0) fL Gran % 76.6 H (36.0-66.0) % Immature Gran % (Auto) 0.8 H (0.00-0.4) % Nucleat RBC Rel Count 0.0 (0.00-0.1) % Eos # (Auto) 0.54 H (0-0.5) x10^3/uL Immature Gran # (Auto) 0.11 H (0.00-0.03) x10^3u/L Absolute Lymphs (auto) 1.75 (1.0-4.6) x10^3/uL Absolute Monos (auto) 0.96 (0.0-1.3) x10^3/uL Absolute Nucleated RBC 0.00 (0.00-0.01) x10^3u/L Lymphocytes % 12.0 L (24.0-44.0) % Monocytes % 6.6 (0.0-12.0) % Eosinophils % 3.7 (0.00-5.0) % Basophils % 0.3 (0.0-0.4) % Absolute Granulocytes 11.14 H (1.4-6.9) x10^3/uL Basophils # 0.05 (0-0.4) x10^3/uL Sodium 135 L (137-145) mmol/L Potassium 4.1 (3.5-5.1) mmol/L Chloride 92 L (98-107) mmol/L Carbon Dioxide 38 H (22-30) mmol/L Anion Gap 8.7 (5-15) MEQ/L BUN 10 (7-17) mg/dL Creatinine 0.65 (0.52-1.04) mg/dL Estimated GFR > 60.0 ML/MIN Glucose 109 H (74-106) mg/dL Lactic Acid 1.6 (0.4-2.0) Calcium 8.2 L (8.4-10.2) mg/dL Magnesium 2.3 (1.6-2.3) mg/dL Total Bilirubin 0.50 (0.2-1.3) mg/dL AST 31 (14-36) U/L ALT 26 (0-35) U/L Alkaline Phosphatase 138 H (38-126) U/L Serum Total Protein 7.3 (6.3-8.2) g/dL Albumin 3.9 (3.5-5.0) g/dL CT/HEAD WITHOUT CONTRAST CLINICAL HISTORY:confusion, fall COMPARISON:None TECHNIQUE:Axial non-contrast CT scan of the brain was performed from the skull base to the high parietal region. ;CTDI: 53.92, DLP: 1083.55 FINDINGS: No definite calvarium fractures. No intracerebral or extra axial hematoma. The visualized brain parenchyma shows normal appearance. No focal parenchymal abnormalities are demonstrated. Pimentel-white matter differentiation is maintained. No midline shifts or deformity. Normal size and configuration of the cerebral ventricles. Normal CT appearance of the posterior fossa structures namely the cerebellar hemispheres, brainstem and cerebellar peduncles. The IACs are unremarkable. The cerebello-pontine angles are clear. The pituitary gland, the pineal gland, the optic chiasm is unremarkable. The osseous structures in the skull base are unremarkable. Scanned paranasal sinuses are clear. No abnormal contrast enhancement seen. IMPRESSION: No definite calvarium fractures. No intracerebral or extra axial hematoma. No evidence of ischemic infarction or obvious mass lesion seen. (SERGEY,CLARENCE) - Progress Progress: improved Counseled pt/family regarding: lab results, diagnosis, need for follow-up, rad results - Progress Progress Note: 10/05/2022 @ 20:05 Dr. Arriaga, radiology, called the emergency department and notified me that the lacey diaz has 2 nondisplaced fractures at the base of first second metatarsal in the left foot and this was not caught on earlier interpretation. Patient will be made aware to return back for a walking boot and referral to podiatry to follow-up these fractures (LILY MCKINNEY) Medical Desision Making - Social Determinants of Health Pt's dx & treatment plan are significantly limited by SDOH: housing insecurity Limited access to: transportation - Diagnostic Testing Diagnostic test were ordered, analyzed, and reviewed by me: Yes Radiological Interpretation: Teleradiologist Report - Risk of complications The pt has a mod risk of morbidity or mortality based on: Need for prescription drug management - Departure Departure Disposition: Home Critical Care Time: No - Departure Clinical Impression: Infiltrate of lower lobe of right lung present on imaging study Fall at home Qualifiers: Encounter type: initial encounter Qualified Code(s): W19.XXXA - Unspecified fall, initial encounter; Y92.009 - Unspecified place in unspecified non- institutional (private) residence as the place of occurrence of the external cause Metatarsal fracture Qualifiers: Encounter type: initial encounter Metatarsal bone: first Fracture type: closed Fracture alignment: nondisplaced Laterality: left Qualified Code(s): S92.315A - Nondisplaced fracture of first metatarsal bone, left foot, initial encounter for closed fracture Condition: Stable Referrals: KADEN SCHAFER SUPERIOR COURT JUDGE [Primary Care Provider] - Follow up/PCP as directed Instructions: Pneumonia, Adult (DC), Preventing falls in adults Additional Instructions: Discharge/Care Plan TUCKER RUIZ was seen on 10/05/22 in the Emergency Room. The patient was counseled regarding Diagnosis,Lab results, Imaging studies, need for follow up and when to return to the Emergency Room. Prescriptions given: Discharge Note I have spoken with the patient and/or caregivers. I have explained the patient's condition, diagnosis and treatment plan based on the information available to me at this time. I have answered the patient's and/or caregiver's questions and add ressed any concerns. The patient and/or caregivers have as good understanding of the patient's diagnosis, condition and treatment plan as can be expected at this point. The vital signs have been stable. The patient's condition is stable and appropriate for discharge from the emergency department. The patient will pursue further outpatient evaluation with the primary care physician or other designated or consulting physician as outlined in the discharge instructions. The patient and/or caregivers are agreeable to this plan of care and follow-up instructions have been explained in detail. The patient and/or caregivers have received these instruction. The patient/and or caregivers are aware that any significant change in condition or worsening of symptoms should prompt an immediate return to this or the closest emergency department or call 911. TUCKER RUIZ was seen on 10/05/22 n the Emergency Room. At that time you were treated for an emergent condition, during your visit Laboratory, Radiology and/or other procedures may have been ordered. It is very important that you follow-up with your Primary Care Physician KADEN SCHAFER NP within the next 24-48 hours to review your Emergency Room visit and the final results of testing that was ordered. Some test results such as Urine Cultures, Blood Cultures, and other cultures if ordered will not be finalized for 24-48 hours. If you do not have a Primary Care Provider please call the medical records department at [phone] ext [phone] to obtain a copy of your results or you may sign into our patient portal to obtain these results by visiting @ [email or web address] and completing the following steps: 1. Click on the Patient Portal link 2. Click the Patient Self Enrollment Link to complete the enrollment form and entering your 3. Once the enrollment form is completed you will receive an email with a tempo [employer] ID and password at the email address you provided. 4. Next choose a user name and password. Your user name must be at least 4 characters long and your password must be at least 4 characters long. 5. Choose a security question from the list and provide your answer to the question. If you already have signed into the Health Portal you may access your Health Care Information 08/09 by the following steps: 1. Login to our website @ [email or web address] 2. Enter your original user name and password. FAQS The [facility] Health Portal is an online tool that contains your Lab Results, Radiology Reports, Visit History, Discharge Instructions and Health Summary Lab and Radiology Results will not be available for 72 hours on the portal. The Portal is a secure site, passwords are encryted and URLs are re-written so they cannot be copied and pasted. You and authorized family members are the only ones who can access your Portal. Also there is a timeout feature that protects your information if you leave the Portal page open. If you have technical difficulty please use the Contact Us link on the page this will allow you to submit any questions you have regarding the Portal or you may contact the Medical Record Department at [phone] ext [phone]. Prescriptions: Cephalexin Mh 500 mg [Keflex 500 mg] 500 mg PO Q6H #40 cap
[2022-10-05 09:22] LABS: ALBUMIN 3.9 g/dL (3.5-5.0); ALKALINE PHOSPHATASE 138 U/L (38-126); ANION GAP 8.7 MEQ/L (5-15); BLOOD UREA NITROGEN 10 mg/dL (7-17); CHLORIDE 92 mmol/L (98-107); Calcium 8.2 mg/dL (8.4-10.2); Carbon Dioxide 38 mmol/L (22-30); Creatinine 1 0.65 mg/dL (0.52-1.04); EST GLOMERULAR FILTRATION RATE > 60.0 ML/MIN; Glucose 109 mg/dL (74-106); MAGNESIUM 2.3 mg/dL (1.6-2.3); Potassium 4.1 mmol/L (3.5-5.1); SGOT/AST 31 U/L (14-36); SGPT/ALT 26 U/L (0-35); SODIUM 135 mmol/L (137-145); Total Protein 7.3 g/dL (6.3-8.2)
[2022-10-05] MEDS ORDERED: ROCEPHIN 1 Gm-D5w 50 ml Bag** 1 G/50 ML IVPB IV STA (09:41)
[2022-10-05] MEDS ORDERED: ROCEPHIN 1 Gm-D5w 50 ml Bag** 1 G/50 ML IVPB IV ONE (09:46)
--- NOTE | 2022-10-05 10:08 | XRAY ---
CLINICAL HISTORY:confusion, fall COMPARISON:None TECHNIQUE:Axial non-contrast CT scan of the brain was performed from the skull base to the high parietal region. ;CTDI: 53.92, DLP: 1083.55 FINDINGS: No definite calvarium fractures. No intracerebral or extra axial hematoma. The visualized brain parenchyma shows normal appearance. No focal parenchymal abnormalities are demonstrated. Pimentel-white matter differentiation is maintained. No midline shifts or deformity. Normal size and configuration of the cerebral ventricles. Normal CT appearance of the posterior fossa structures namely the cerebellar hemispheres, brainstem and cerebellar peduncles. The IACs are unremarkable. The cerebello-pontine angles are clear. The pituitary gland, the pineal gland, the optic chiasm is unremarkable. The osseous structures in the skull base are unremarkable. Scanned paranasal sinuses are clear. No abnormal contrast enhancement seen. IMPRESSION: No definite calvarium fractures. No intracerebral or extra axial hematoma. No evidence of ischemic infarction or obvious mass lesion seen. Electronically Signed by: Estiven Hancock MD. (10/05/2022 09:08:14 FLORIST DESIGNER)
[2022-10-05 11:17] VITALS: BP 161/110
--- NOTE | 2022-10-05 20:02 | XRAY ---
Indication: Confusion. Status post fall. Comparison: July 10, 2022 Portable chest remains inflated and clear. Heart not enlarged. Bony thorax intact again with osteopenia and mild degenerative changes. Impression: Nonacute chest.
--- NOTE | 2022-10-05 20:04 | XRAY ---
Indication: Pain following fall. Comparison: None 3 view left ankle demonstrates osteopenia, small heel spurs, and tiny medial malleolus spur. No other bony, articular, or soft tissue abnormalities.
--- NOTE | 2022-10-05 20:10 | XRAY ---
Indication: Pain following fall. Comparison: None 3 view nonweightbearing views left foot demonstrates nondisplaced fractures base 1st/2nd metatarsals. Elsewhere osteopenia and small heel spurs. No other bony, articular, or soft tissue abnormalities. Comment: Fracture not reported by interpreting ER clinician. Telephone report was given to Dr. Nguyen in the ER at 2005 hrs. on October 05, 2022.
--- NOTE | 2022-10-05 20:14 | XRAY ---
Indication: Pain following fall. Comparison: September 17, 2022 3 nonweightbearing views right foot demonstrates new nondisplaced corner fracture base 1st proximal phalanx, lateral aspect. Stable postsurgical changes including 1st/2nd tarsometatarsal talus fusion and 3rd tarsometatarsal fusion all with intact hardware, bone grafts, and soft tissue swelling. Elsewhere stable osteopenia, remnant 2nd cuneiform screws, and heel spurs.
== END 2022-10-05 13:35 | disposition home or self-care (01) ==
LOC: ED 08:31
DX: S92.315A Nondisplaced fracture of first metatarsal bone, left foot, initial encounter for closed fracture (principal); S92.325A Nondisplaced fracture of second metatarsal bone, left foot, initial encounter for closed fracture; W19.XXXA Unspecified fall, initial encounter; R91.8 Other nonspecific abnormal finding of lung field; R53.1 Weakness; R25.3 Fasciculation; E11.42 Type 2 diabetes mellitus with diabetic polyneuropathy; E78.5 Hyperlipidemia, unspecified; I10 Essential (primary) hypertension; Z79.52 Long term (current) use of systemic steroids; Z79.891 Long term (current) use of opiate analgesic; Z79.899 Other long term (current) drug therapy
CPT/HCPCS: 36415; 70450; 71045; 73610; 73630; 80053; 83605; 83735; 85025; 93005; 93041; 96365; 99284; J0696

== ENCOUNTER 2023-02-06 17:30 | Inpatient (IN) | payer MEDICARE ==
--- NOTE | 2023-02-06 18:15 | ERPHSYRPT ---
- History of Present Illness Time Seen by Provider: 02/06/23 17:45 Source: patient, EMS Exam Limitations: clinical condition Patient Subjective Stated Complaint: SOB Triage Nursing Assessment: Patient brought into ED per EMS and transferred to bed with assist of 2. Patient A+O X3. Patient's skin flushed, warm and dry. Patient complains of fever and increased SOB all day. Patient wears home O2 at 2 liters per N/C. EMS arrived to home and noted O2 at 2 liters was 78% and increased oxygen to 6 liters per N/C. Patient initially in ER O2 was 66% on 6 liters per N/C. Non rebreather applied per 10 liters per RT. Patient complains of pain to feet and legs. Patient constantly having jerking movements to entire body. Lungs noted to be diminished with wheezing throughout. 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 The ambulance/paramedics provided independent additional history because the patient was somewhat confused upon arrival to the emergency department. Patient complained of shortness of breath and fever. She took 200 mg ibuprofen4 tablets to treat fever approximately 3 to 4 hours prior to her arrival to the emergency department. Patient ordinarily wears 2 L of oxygen via nasal cannula for her COPD. She was hypoxic on this level so it was turned up to 6 L via nasal cannula which did improve her oxygenation saturation level but was still hypoxic and therefore respiratory therapy is here at this time and patient is being put on a nonrebreather. Patient is a former smoker of cigarettes. Patient has a history of hyperlipidemia, hypertension, anxiety/depression, trigeminal neuralgia. Patient denies abdominal pain. Patient denies chest pain. Patient denies vomiting and diarrhea symptoms. Timing/Duration: today Activities at Onset: none Severity of Dyspnea-Max: moderate Severity of Dyspnea-Current: moderate Possible Cause: occasional episodes Modifying Factors: Improves With: activity (Portions) Associated Symptoms: fever, wheezing, No cough, No chest pain/discomfort Allergies/Adverse Reactions: No Known Drug Allergies Allergy (Verified 02/06/23 17:37) Home Medications: ARIPiprazole [Aripiprazole] 10 mg PO DAILY 01/11/20 [History] Duloxetine HCl 30 mg [Cymbalta 30 MG Capsule] 120 mg PO DAILY 01/11/20 [History] Pregabalin [Lyrica] 300 mg PO BID 01/11/20 [History] Tizanidine HCl 4 mg [Zanaflex 4 MG] 4 mg PO Q8HPRN PRN 01/11/20 [History] Trazodone HCl 50 mg [Desyrel 50 mg] 200 mg PO HS 06/30/20 [History] ALPRAZolam 0.25 MG [xanAX 0.25 MG] 0.25 mg PO TID 03/06/21 [History] Carvedilol 12.5 mg [Coreg 12.5 mg] 12.5 mg PO BID 03/06/21 [History] Levothyroxine Sodium [Euthyrox] 150 tab PO DAILY 07/04/21 [History] Potassium Chloride 10 meq PO BID 08/28/21 [History] Benazepril HCl [Lotensin] 40 mg PO DAILY 09/12/21 [History] Atorvastatin Calcium [Lipitor] 40 mg PO HS 12/26/21 [History] Albuterol 2.5 mg/3 ml Neb [Proventil 2.5 mg/3 ml Neb] 2.5 mg IH Q6H PRN PRN 07/08/22 [History] Cholecalciferol (Vitamin D3) [Vitamin D] 5,000 unit PO DAILY 07/08/22 [History] Atorvastatin Calcium 40 mg PO DAILY 10/05/22 [History] Hydrocodone/Acetaminophen [Hydrocodone-Acetamin 10-325 mg] 1 ea TID 10/05/22 [History] Prednisone 20 mg [Deltasone 20 mg] 20 mg PO DAILY 10/05/22 [History] Tramadol HCl 50 mg [Ultram 50 mg] 1 ea BID 10/05/22 [History] Vit B12/Folic Acid/B6/Aa No.15 [Glycotrol Capsule] 1 ea DAILY 10/05/22 [History] Hx Tetanus, Diphtheria Vaccination/Date Given: No Hx Influenza Vaccination/Date Given: No Hx Pneumococcal Vaccination/Date Given: No Immunizations Up to Date: Yes Travel Risk - International Travel Have you traveled outside of the country in past 3 weeks: No - Coronavirus Screening Are you exhibiting any of the following symptoms?: Yes Symptoms: Fever, Cough: New Onset, Shortness of Breath Close contact with a COVID-19 positive Pt in past 14-21 Days: No - Vaccine Status Have you recieved a Covid-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: Yes 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 - Vaccination Dates Date of 2cond Vaccination (if applicable): 10/17/2020 - Review of Systems Constitutional: Fever, Weakness Eyes: No Symptoms Ears, Nose, & Throat: No Symptoms Respiratory: Dyspnea, Wheezing Cardiac: No Symptoms Abdominal/Gastrointestinal: No Symptoms Genitourinary Symptoms: No Symptoms Musculoskeletal: No Symptoms Skin: No Symptoms Neurological: No Symptoms Psychological: No Symptoms Endocrine: No Symptoms Hematologic/Lymphatic: No Symptoms Immunological/Allergic: No Symptoms All Other Systems: Reviewed and Negative - Past Medical History Pertinent Past Medical History: Yes Neurological History: No Pertinent History ENT History: Cataracts Cardiac History: High Cholesterol, Hypertension Respiratory History: COPD, Emphysema Endocrine Medical History: Hypoglycemia Musculoskeletal History: No Pertinent History GI Medical History: No Pertinent History History: No Pertinent History Psycho-Social History: Anxiety, Depression Female Reproductive Disorders: No Pertinent History Other Medical History: trigeminal neuralgia - Past Surgical History Past Surgical History: Yes Neuro Surgical History: No Pertinent History Cardiac: No Pertinent History Respiratory: No Pertinent History Gastrointestinal: Appendectomy Genitourinary: No Pertinent History Musculoskeletal: Orthopedic Surgery Female Surgical History: No Pertinent History Other Surgical History: elbow surgery. skin cancer removed. right foot surgery - 12/27/21 - Social History Smoking Status: Former smoker How long have you smoked: 25 Exposure to second hand smoke: No Drug Use: none Patient Lives Alone: Yes - Nursing Vital Signs Nursing Vital Signs: Initial Vital Signs Pulse Rate 109 H 02/06/23 17:36 Respiratory Rate 32 H 02/06/23 17:36 Blood Pressure 170/98 02/06/23 17:36 Pain Scale Pain Intensity 0 - Physical Exam General Appearance: mild distress, alert, obese Eye Exam: PERRL/EOMI, eyes nml inspection Ears, Nose, Throat Exam: hearing grossly normal, normal ENT inspection, normal pharynx Neck Exam: normal inspection, non-tender, supple, full range of motion Respiratory Exam: respiratory distress (I will), diminished breath sounds (I lateral and diffuse), wheezing, No chest tenderness Cardiovascular/Chest Exam: tachycardia Abdominal/Gastrointestinal Exam: soft, normal bowel sounds, No tenderness Rectal Exam: not done Extremity Exam: non-tender, normal range of motion, normal inspection Neurologic Exam: alert, oriented x 3, cooperative, health editor II-XII nml as tested, normal mood/affect, nml cerebellar function, nml station & gait, sensation nml Skin Exam: normal color, warm, dry Lymphatic Exam: No adenopathy SpO2 Interpretation: hypoxic (On 2 and 6 L oxygen via nasal cannula) SpO2: 96 O2 Delivery: Non-rebreather - Course Nursing assessment & vital signs reviewed: Yes EKG Interpreted by Me: RATE (94), NORMAL AXIS, NORMAL QRS, Non-specific ST Changes, Other (Prolonged CO interval. No acute ischemic changes on today's twelve-lead EKG.) Ordered Tests: Active Orders 24 hr Category Date Time Status International Relations Professor STAT Care 02/06/23 18:14 Active Catheter-[place] STAT Care 02/06/23 19:41 Active EKG-ER Only STAT Care 02/06/23 18:13 Active IV Insertion STAT Care 02/06/23 18:13 Active IV Insertion-2nd Peripheral STAT Care 02/06/23 18:16 Active Oxygen-ED Only NON-REBREATHER 100% Care 02/06/23 18:13 Active Pulse Oximetry (ED) STAT Care 02/06/23 18:13 Active CHEST 1 VIEW (PORTABLE) Stat Exams 02/06/23 18:14 Completed CHEST WITH CONTRAST [CT] Stat Exams 02/06/23 20:44 Completed HEAD WITHOUT CONTRAST [CT] Stat Exams 02/06/23 22:15 Completed ARTERIAL BLOOD GASES Stat Lab 02/06/23 18:30 Completed BLOOD CULTURE Stat Lab 02/06/23 18:47 Received CBC W DIFF Stat Lab 02/06/23 17:45 Completed CMP Stat Lab 02/06/23 18:13 Completed CULTURE,URINE Stat Lab 02/06/23 19:46 Received D-DIMER QUANTITATIVE Stat Lab 02/06/23 17:45 Completed Lactic Acid Stat Lab 02/06/23 18:30 Completed NT PRO BNPII Stat Lab 02/06/23 18:13 Completed PROTIME WITH INR Stat Lab 02/06/23 17:45 Completed TROPONIN Q4H Lab 02/06/23 17:45 Completed TROPONIN Q4H Lab 02/06/23 22:40 Completed TROPONIN Q4H Lab 02/07/23 02:15 Ordered UA W/RFX UR CULTURE Stat Lab 02/06/23 19:43 Completed Medication Summary Generic Name Dose Route Start Last Admin Trade Name Graciela PRN Reason Stop Dose Admin Sodium Chloride 1,000 mls @ 100 mls/hr 02/06/23 18:45 02/06/23 23:46 Sodium Chloride 0.9% 1000 Ml IV 03/08/23 18:44 Infused .Q10H KIKO Infusion Discontinued Medications Generic Name Dose Route Start Last Admin Trade Name Graciela PRN Reason Stop Dose Admin Acetaminophen 650 mg 02/06/23 18:44 02/06/23 18:50 Acetaminophen 325 Mg Tablet PO 02/06/23 18:45 650 mg STAT ONE Administration Acetaminophen Confirm 02/06/23 18:47 Acetaminophen 325 Mg Tablet Administered 02/06/23 18:48 Dose 650 mg .ROUTE .STK-MED ONE Ibuprofen 600 mg 02/06/23 20:00 02/06/23 20:50 Ibuprofen 600 Mg Tablet PO 02/06/23 20:01 600 mg STAT ONE Administration Ibuprofen Confirm 02/06/23 20:47 Ibuprofen 600 Mg Tablet Administered 02/06/23 20:48 Dose 600 mg .ROUTE .STK-MED ONE Labetalol HCl 10 mg 02/06/23 23:06 Labetalol Hcl 20 Mg/4 Ml Disp.Syringe IV 02/06/23 23:07 STAT ONE Labetalol HCl 5 mg 02/06/23 23:36 02/06/23 23:38 Labetalol Hcl 20 Mg/4 Ml Disp.Syringe IV 02/06/23 23:37 5 mg STAT ONE Administration Labetalol HCl Confirm 02/06/23 23:37 Labetalol Hcl 20 Mg/4 Ml Disp.Syringe Administered 02/06/23 23:38 Dose 20 mg IV .STK-MED ONE Lab/Rad Data: Laboratory Result Diagrams 02/06/23 17:45 02/06/23 18:13 Laboratory Results 02/06/23 02/06/23 02/06/23 Range/Units 22:40 19:43 18:48 WBC (4.0-10.5) x10^3/uL RBC (4.1-5.4) x10^6/uL Hgb (12.0-16.0) g/dL Hct (35-47) % MCV (78-100) fL MCH (26-32) pg MCHC (32-36) g/dL RDW (11.5-14.0) % Plt Count (150-450) x10^3/uL MPV (7.5-11.0) fL Gran % (36.0-66.0) % Immature Gran % (Auto) (0.00-0.4) % Nucleat RBC Rel Count (0.00-0.1) % Eos # (Auto) (0-0.5) x10^3/uL Immature Gran # (Auto) (0.00-0.03) x10^3u/L Absolute Lymphs (auto) (1.0-4.6) x10^3/uL Absolute Monos (auto) (0.0-1.3) x10^3/uL Absolute Nucleated RBC (0.00-0.01) x10^3u/L Lymphocytes % (24.0-44.0) % Monocytes % (0.0-12.0) % Eosinophils % (0.00-5.0) % Basophils % (0.0-0.4) % Absolute Granulocytes (1.4-6.9) x10^3/uL Basophils # (0-0.4) x10^3/uL PT (9.4-12.5) SECONDS INR (0.8-3.0) D-Dimer (0.0-0.50) mg/L Puncture Site pCO2 (35-45) mmHg pO2 (75-100) mmHg Base Excess (-2.0-2.0) O2 Saturation (94-100) g/dF ABG pH (7.35-7.45) ABG HCO3 (22-28) ABG O2 Sat (Measured) (95-100) % Shabbir Test A-a Gradient a/A Ratio Hemoglobin Carboxyhemoglobin (0.0-6.9) % THgb Methemoglobin (1.4-1.5) % Temperature C POC O2 Flow Rate % Sodium (137-145) mmol/L Potassium (3.5-5.1) mmol/L Chloride (98-107) mmol/L Carbon Dioxide (22-30) mmol/L Anion Gap (5-15) MEQ/L BUN (7-17) mg/dL Creatinine (0.52-1.04) mg/dL Estimated GFR ML/MIN Glucose (74-106) mg/dL Lactic Acid (0.4-2.0) Calcium (8.4-10.2) mg/dL Total Bilirubin (0.2-1.3) mg/dL AST (14-36) U/L ALT (0-35) U/L Alkaline Phosphatase (38-126) U/L Troponin I 0.018 (0.000-0.034) ng/mL NT-Pro-B Natriuret Pep (<300) pg/mL Serum Total Protein (6.3-8.2) g/dL Albumin (3.5-5.0) g/dL Urine Color Yellow (Yellow) Urine Appearance Clear (Clear) Urine pH 5.5 (4.6-8.0) Ur Specific [place] 1.015 (1.005-1.030) Urine Protein Trace A (Negative) Urine Glucose (UA) Negative (Negative) mg/dL Urine Ketones Negative (Negative) Urine Blood Negative (Negative) Urine Nitrite Negative (Negative) Urine Bilirubin Negative (Negative) Urine Urobilinogen 0.2 (0.2) mg/dL Ur Leukocyte Esterase Negative (Negative) U Hyaline Cast (Auto) NONE SEEN (0-2) /LPF Urine Microscopic RBC 0-2 (0-5) /HPF Urine Microscopic WBC 0-2 (0-5) /HPF Ur Epithelial Cells None Seen (None Seen) /HPF Urine Bacteria None Seen (None Seen) /HPF Urine Culture Reflexed NO (NO) Influenza Type A Ag POSITIVE (NEGATIVE) Influenza Type B Ag NEGATIVE (NEGATIVE) RSV (PCR) NEGATIVE (NEGATIVE) SARS-CoV-2 (PCR) NEGATIVE (NEGATIVE) Slides for Path Review 02/06/23 02/06/23 02/06/23 Range/Units 18:30 18:13 17:45 WBC (4.0-10.5) x10^3/uL RBC (4.1-5.4) x10^6/uL Hgb (12.0-16.0) g/dL Hct (35-47) % MCV (78-100) fL MCH (26-32) pg MCHC (32-36) g/dL RDW (11.5-14.0) % Plt Count (150-450) x10^3/uL MPV (7.5-11.0) fL Gran % (36.0-66.0) % Immature Gran % (Auto) (0.00-0.4) % Nucleat RBC Rel Count (0.00-0.1) % Eos # (Auto) (0-0.5) x10^3/uL Immature Gran # (Auto) (0.00-0.03) x10^3u/L Absolute Lymphs (auto) (1.0-4.6) x10^3/uL Absolute Monos (auto) (0.0-1.3) x10^3/uL Absolute Nucleated RBC (0.00-0.01) x10^3u/L Lymphocytes % (24.0-44.0) % Monocytes % (0.0-12.0) % Eosinophils % (0.00-5.0) % Basophils % (0.0-0.4) % Absolute Granulocytes (1.4-6.9) x10^3/uL Basophils # (0-0.4) x10^3/uL PT (9.4-12.5) SECONDS INR (0.8-3.0) D-Dimer (0.0-0.50) mg/L Puncture Site RIGHT RADIAL pCO2 60 H* (35-45) mmHg pO2 54 L (75-100) mmHg Base Excess 17.0 H (-2.0-2.0) O2 Saturation 84.0 L (94-100) g/dF ABG pH 7.47 H (7.35-7.45) ABG HCO3 43.7 H* (22-28) ABG O2 Sat (Measured) 87.9 L (95-100) % Shabbir Test YES A-a Gradient 71 a/A Ratio 0.43 Hemoglobin 12.9 Carboxyhemoglobin 3.6 (0.0-6.9) % THgb Methemoglobin 0.8 L (1.4-1.5) % Temperature 37.0 C POC O2 Flow Rate 28 % Sodium 138 (137-145) mmol/L Potassium 4.0 4.0 (3.5-5.1) mmol/L Chloride 89 L (98-107) mmol/L Carbon Dioxide 41 H (22-30) mmol/L Anion Gap 12.0 (5-15) MEQ/L BUN 9 (7-17) mg/dL Creatinine 0.67 (0.52-1.04) mg/dL Estimated GFR 99.4 ML/MIN Glucose 115 H (74-106) mg/dL Lactic Acid 1.2 (0.4-2.0) Calcium 9.1 (8.4-10.2) mg/dL Total Bilirubin 0.70 (0.2-1.3) mg/dL AST 30 (14-36) U/L ALT 27 (0-35) U/L Alkaline Phosphatase 122 (38-126) U/L Troponin I < 0.012 (0.000-0.034) ng/mL NT-Pro-B Natriuret Pep 527 (<300) pg/mL Serum Total Protein 8.4 H (6.3-8.2) g/dL Albumin 4.4 (3.5-5.0) g/dL Urine Color (Yellow) Urine Appearance (Clear) Urine pH (4.6-8.0) Ur Specific [place] (1.005-1.030) Urine Protein (Negative) Urine Glucose (UA) (Negative) mg/dL Urine Ketones (Negative) Urine Blood (Negative) Urine Nitrite (Negative) Urine Bilirubin (Negative) Urine Urobilinogen (0.2) mg/dL Ur Leukocyte Esterase (Negative) U Hyaline Cast (Auto) (0-2) /LPF Urine Microscopic RBC (0-5) /HPF Urine Microscopic WBC (0-5) /HPF Ur Epithelial Cells (None Seen) /HPF Urine Bacteria (None Seen) /HPF Urine Culture Reflexed (NO) Influenza Type A Ag (NEGATIVE) Influenza Type B Ag (NEGATIVE) RSV (PCR) (NEGATIVE) SARS-CoV-2 (PCR) (NEGATIVE) Slides for Path Review 02/06/23 02/06/23 Range/Units 17:45 17:45 WBC 11.6 H (4.0-10.5) x10^3/uL RBC 4.48 (4.1-5.4) x10^6/uL Hgb 12.8 (12.0-16.0) g/dL Hct 42.0 (35-47) % MCV 93.8 (78-100) fL MCH 28.6 (26-32) pg MCHC 30.5 L (32-36) g/dL RDW 15.0 H (11.5-14.0) % Plt Count 209 (150-450) x10^3/uL MPV 9.7 (7.5-11.0) fL Gran % 88.2 H (36.0-66.0) % Immature Gran % (Auto) 0.8 H (0.00-0.4) % Nucleat RBC Rel Count 0.0 (0.00-0.1) % Eos # (Auto) 0.15 (0-0.5) x10^3/uL Immature Gran # (Auto) 0.09 H (0.00-0.03) x10^3u/L Absolute Lymphs (auto) 0.39 L (1.0-4.6) x10^3/uL Absolute Monos (auto) 0.69 (0.0-1.3) x10^3/uL Absolute Nucleated RBC 0.00 (0.00-0.01) x10^3u/L Lymphocytes % 3.4 L (24.0-44.0) % Monocytes % 6.0 (0.0-12.0) % Eosinophils % 1.3 (0.00-5.0) % Basophils % 0.3 (0.0-0.4) % Absolute Granulocytes 10.20 H (1.4-6.9) x10^3/uL Basophils # 0.04 (0-0.4) x10^3/uL PT 10.6 (9.4-12.5) SECONDS INR 0.97 (0.8-3.0) D-Dimer 1.16 H* (0.0-0.50) mg/L Puncture Site pCO2 (35-45) mmHg pO2 (75-100) mmHg Base Excess (-2.0-2.0) O2 Saturation (94-100) g/dF ABG pH (7.35-7.45) ABG HCO3 (22-28) ABG O2 Sat (Measured) (95-100) % Shabbir Test A-a Gradient a/A Ratio Hemoglobin Carboxyhemoglobin (0.0-6.9) % THgb Methemoglobin (1.4-1.5) % Temperature C POC O2 Flow Rate % Sodium (137-145) mmol/L Potassium (3.5-5.1) mmol/L Chloride (98-107) mmol/L Carbon Dioxide (22-30) mmol/L Anion Gap (5-15) MEQ/L BUN (7-17) mg/dL Creatinine (0.52-1.04) mg/dL Estimated GFR ML/MIN Glucose (74-106) mg/dL Lactic Acid (0.4-2.0) Calcium (8.4-10.2) mg/dL Total Bilirubin (0.2-1.3) mg/dL AST (14-36) U/L ALT (0-35) U/L Alkaline Phosphatase (38-126) U/L Troponin I (0.000-0.034) ng/mL NT-Pro-B Natriuret Pep (<300) pg/mL Serum Total Protein (6.3-8.2) g/dL Albumin (3.5-5.0) g/dL Urine Color (Yellow) Urine Appearance (Clear) Urine pH (4.6-8.0) Ur Specific [place] (1.005-1.030) Urine Protein (Negative) Urine Glucose (UA) (Negative) mg/dL Urine Ketones (Negative) Urine Blood (Negative) Urine Nitrite (Negative) Urine Bilirubin (Negative) Urine Urobilinogen (0.2) mg/dL Ur Leukocyte Esterase (Negative) U Hyaline Cast (Auto) (0-2) /LPF Urine Microscopic RBC (0-5) /HPF Urine Microscopic WBC (0-5) /HPF Ur Epithelial Cells (None Seen) /HPF Urine Bacteria (None Seen) /HPF Urine Culture Reflexed (NO) Influenza Type A Ag (NEGATIVE) Influenza Type B Ag (NEGATIVE) RSV (PCR) (NEGATIVE) SARS-CoV-2 (PCR) (NEGATIVE) Slides for Path Review YES - Progress Progress: re-examined Air Movement: fair Progress Note: 02/06/23 19:24 This patient's medical issue is 1 of moderate to high complexity. The level of complexity in the workup performed is based on review of the patient's past medical history, review of the patient's medication list, review of the patient's drug allergy list, history present illness and physical findings on examination. Workup in this patient includes intravenous line placement, blood cultures, oral Tylenol, chest x-ray, CBC, CMP, BNP, D-dimer, troponin level, lactic acid level, twelve-lead EKG, urinalysis. We will also have respiratory t herapy evaluate since patient. Patient has a fever and we provided the patient with 650 mg of oral Tylenol. Patient states that she took four 200 mg ibuprofen approximately 3 to 4 hours prior to arrival to the emergency department. 02/06/23 19:26 02/06/23 19:26 Chest x-ray was interpreted by me. There is no acute cardiopulmonary process. 02/06/23 22:14 I interpreted the patient's lab workup results. Patient has influenza A. She has a mild leukocytosis. CT scan of the chest with contrast was interpreted by the radiologist and I reviewed the impression. Impression states diffuse respiration artifact limits the study and evaluation for pulmonary embolus. However, radiologist says no ob vious central pulmonary embolus. No other acute cardiopulmonary processes present. I went in to reexamine the patient. She is able to answer questions but she is a bit shaky and mildly confused. I will order a CT scan of the head without contrast. 02/06/23 23:18 CT scan of the head without contrast was interpreted by radiologist. There is no evidence of acute intracranial abnormality. 02/06/23 23:[address] Real, the telehospitalist on-call this evening. I reviewed the patient history, I reviewed the patient presenting complaint, I reviewed the workup and the workup results of the radiographic and laboratory studies with him. We will admit the patient into the ICU. We will place the patient on low rate intravenous fluids, repeat ABG in the morning, respiratory therapy will evaluate this patient and provide nebulizer treatments. I will provide the patient with Solu-Medrol intravenously every 8 hours. Will repeat labs in the morning. Blood Culture(s) Obtained: Yes Antibiotics given: No Discussed with DrTodd: Other (Dr. 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 Real) Reviewed:: Test results, Need for additional workup Agreed on:: decision to admit Will see patient: in hospital - Diagnostic Testing Diagnostic test were ordered, analyzed, and reviewed by me: Yes Radiological Interpretation: Reviewed by me, Teleradiologist Report - Risk of complications The pt has a high risk of morbidity or mortality based on: Decision regarding hospitilization or escalation of hosp level of care - Departure Departure Disposition: In-patient Admission Clinical Impression: Shortness of breath, Hypoxia, Fever, Confusion, Influenza A H1N1 infection, Hypertension Condition: Serious Critical Care Time: Yes Critical Care Time(excluding separately billable procedures): Critical 30-74 mins (50 minutes)
[2023-02-06 18:19] LABS: BASOPHIL % 0.3 % (0.0-0.4); Basophil (Absolute #) 0.04 x10^3/uL (0-0.4); Eosinophil % 1.3 % (0.00-5.0); Eosinophil (Absolute #) 0.15 x10^3/uL (0-0.5); Hemoglobin 12.8 g/dL (12.0-16.0); IMMATURE GRAN # 0.09 x10^3u/L (0.00-0.03); IMMATURE GRAN % 0.8 % (0.00-0.4); Lymphocyte (Absolute #) 0.39 x10^3/uL (1.0-4.6); Lymphocytes % 3.4 % (24.0-44.0); Mean Cell Volume 93.8 fL (78-100); Mean Corpuscular Hemoglobin 28.6 pg (26-32); Mean Corpuscular Hgb Concent. 30.5 g/dL (32-36); Mean Platelet Volume 9.7 fL (7.5-11.0); Monocyte (Absolute #) 0.69 x10^3/uL (0.0-1.3); Neutrophil % 88.2 % (36.0-66.0); Platelet Count 209 x10^3/uL (150-450); Red Blood Count 4.48 x10^6/uL (4.1-5.4); White Blood Count 11.6 x10^3/uL (4.0-10.5)
[2023-02-06 18:36] LABS: ALBUMIN 4.4 g/dL (3.5-5.0); BILIRUBIN,TOTAL 0.7 mg/dL (0.2-1.3); Calcium 9.1 mg/dL (8.4-10.2); Creatinine 1 0.67 mg/dL (0.52-1.04); EST GLOMERULAR FILTRATION RATE 99.4 ML/MIN; Total Protein 8.4 g/dL (6.3-8.2)
[2023-02-06 18:38] LABS: A-aADO2 71; ABG HEMOGLOBIN 12.9; ARTERIAL BLD GAS O2 SATURATION 87.9 % (95-100); ARTERIAL BLOOD GAS FIO2 28 %; ARTERIAL BLOOD GAS PO2 54 mmHg (75-100); ARTERIAL BLOOD GAS pH 7.47 (7.35-7.45); CARBOXYHEMOGLOBIN 3.6 % THgb (0.0-6.9); HCO3- 43.7 (22-28); Lactic Acid 1.2 (0.4-2.0); Methhemoglobin 0.8 % (1.4-1.5); paO2 pAO1 0.43
[2023-02-06 18:39] LABS: ABG SITE RIGHT RADIAL; ALLEN TEST OK? YES; ARTERIAL BLOOD GAS PCO2 60 mmHg (35-45)
[2023-02-06] MEDS ORDERED: TYLENOL 325 MG PO ONE (18:44)
[2023-02-06] MEDS ORDERED: Sodium Chloride 0.9% 1000 ML 1,000 ML IV SCH (18:45)
[2023-02-06 18:46] LABS: Slide Review 1 YES
[2023-02-06] MEDS ORDERED: TYLENOL 325 MG ONE (18:47)
[2023-02-06] MEDS ORDERED: Sodium Chloride 0.9% 1000 ML 1,000 ML ONE (18:47)
[2023-02-06 19:13] LABS: INR 0.97 (0.8-3.0); PROTIME 10.6 SECONDS (9.4-12.5)
[2023-02-06 19:20] LABS: D-DIMER QUANTITATIVE 1.16 mg/L (0.0-0.50)
[2023-02-06 19:27] LABS: INFLUENZA B NEGATIVE (NEGATIVE); RESPIRATORY SYNCTIAL VIRUS NEGATIVE (NEGATIVE); SARS-CoV-2 Xpert Express NEGATIVE (NEGATIVE)
[2023-02-06 19:31] LABS: INFLUENZA A POSITIVE (NEGATIVE)
[2023-02-06] MEDS ORDERED: MOTRIN 600 MG PO ONE (20:00)
[2023-02-06 20:02] LABS: Appearance Clear (Clear); Bacteria None Seen /HPF (None Seen); Bilirubin Negative (Negative); Blood Negative (Negative); Epithelial Cells None Seen /HPF (None Seen); Glucose, Urine Negative (Negative); Hyaline Casts NONE SEEN /LPF (0-2); Ketones Negative (Negative); Leukocyte Esterase Negative (Negative); Nitrite Negative (Negative); Ph 5.5 (4.6-8.0); Protein,Urine Dip Trace (Negative); RBC 0-2 /HPF (0-5); Specific Gravity 1.015 (1.005-1.030); Urobilinogen 0.2 mg/dL (0.2); WBC 0-2 /HPF (0-5)
[2023-02-06 20:05] LABS: ADD URINE CULTURE? NO (NO)
[2023-02-06] MEDS ORDERED: MOTRIN 600 MG ONE (20:47)
--- NOTE | 2023-02-06 22:01 | XRAY ---
Indication: Fever. Hypoxia. Elevated d-dimer. Multiple contiguous axial images obtained through the chest using 80 cc Isovue 370 contrast and PE protocol. Comparison: July 05, 2020 Adequate opacification of the pulmonary arteries. However marked diffuse respiration artifact limits evaluation for pulmonary embolus. No obvious central pulmonary embolus. Heart not enlarged. Aorta is normal in course and caliber. No pathologic mediastinal/hilar lymphadenopathy. Lungs demonstrates minimal bibasilar subsegmental atelectasis/scarring. No suspicious pulmonary mass/nodule, infiltrate, consolidation, or effusion. Bony thorax intact again with mild degenerative changes throughout the spine. Limited upper abdomen again demonstrates fatty liver. Impression: 1. Diffuse respiration artifact limits study and evaluation for pulmonary embolus. No obvious central pulmonary embolus. 2. Incidental bibasilar atelectasis/scarring, chronic bony findings, and fatty liver. 3. Remaining CT chest with contrast exam is grossly negative.
--- NOTE | 2023-02-06 22:01 | XRAY ---
Indication: Fever and short of breath. Comparison: October 05, 2022 Portable chest remains inflated and clear. Heart not enlarged. Bony thorax intact again with osteopenia and mild degenerative changes. Impression: Continued nonacute chest with chronic bony findings.
[2023-02-06] MEDS ORDERED: TRANDATE 20 MG/4 ML SYRINGE IV ONE ×3 (23:06→23:37)
--- NOTE | 2023-02-06 23:15 | XRAY ---
CLINICAL HISTORY:Confusion COMPARISON:CT head scan done on 10/05/2022 TECHNIQUE:Multiple axial images are obtained from the skull base to the vertex without contrast. CT scan was performed according to ALARA (as low as reasonable achievable). FINDINGS: The brain shows normal morphology, attenuation, and volume for age. No evidence of space occupying lesion, hemorrhage, edema, mass effect, midline shift, extra axial collection, or hydrocephalus is noted. Ventricles, sulci, and basal cisterns are symmetric and normal in size and configuration. The lennon-white matter differentiation is preserved. Visualized paranasal sinuses and mastoid air cells are well aerated. Orbital contents are within normal limits. Bony structures are intact. IMPRESSION: 1. No evidence of acute intracranial abnormality is demonstrated As compared to prior CT scan done on 10/05/2022, there is no changes in the findings. Electronically Signed by: Dr. Cristi Leslie MD. (02/06/2023 23:11:11 EST)
[2023-02-07] MEDS ORDERED: ENALAPRILAT 2.5 MG INJECTION IV SCH (00:30)
[2023-02-07] MEDS ORDERED: Sodium Chloride 0.9% 1000 ML 1,000 ML IV SCH (00:30)
[2023-02-07] MEDS ORDERED: Zofran 4 MG/2 ML VIAL IV PRN (00:30)
--- NOTE | 2023-02-07 01:18 | PCM.HP ---
History of Present Illness - Chief Complaint Chief Complaint: shortness of breath Date: 02/06/23 History of Present Illness: Ms. Hoskins is a 62 year old female with a past medical history significant for hypertension, hyperlipidemia, anxiety, and previous tobacco use who presents to the hospital with complaints of increasing shortness of breath, confusion and fever. She had taken some ibuprofen for fever but when she arrived, she was hypoxic. She tested positive for influenza, and initial labs were notable for an alkalosis with pH 7.47 though pCO2 was quite high at 63. She was seen in the ER, where she is resting in bed, lethargic, poorly arousable and unable to provide any significant history. She has been recommended for admission to ICU status. - Review of Systems Constitutional: Lethargy, Malaise Eyes: No Symptoms Ears, Nose, & Throat: No Symptoms Respiratory: Cough, Short Of Breath Cardiac: No Chest Pain, No Edema Abdominal/Gastrointestinal: No Abdominal Pain, No Nausea, No Vomiting, No Diarrhea Genitourinary Symptoms: No Dysuria, No Frequency, No Hematuria Musculoskeletal: Arthralgias, Back Pain, Neck Pain Skin: No Pruritis, No Rash Neurological: No Symptoms Psychological: No Symptoms All Other Systems: Unable due to condition Medications & Allergies Home Medications: Home Medication List ARIPiprazole [Aripiprazole] 10 mg PO DAILY 01/11/20 [History Confirmed 10/05/22] Duloxetine HCl 30 mg [Cymbalta 30 MG Capsule] 120 mg PO DAILY 01/11/20 [History Confirmed 10/05/22] Pregabalin [Lyrica] 300 mg PO BID 01/11/20 [History Confirmed 10/05/22] Tizanidine HCl 4 mg [Zanaflex 4 MG] 4 mg PO Q8HPRN PRN 01/11/20 [History Confirmed 10/05/22] Trazodone HCl 50 mg [Desyrel 50 mg] 200 mg PO HS 06/30/20 [History Confirmed 10/05/22] ALPRAZolam 0.25 MG [xanAX 0.25 MG] 0.25 mg PO TID 03/06/21 [History Confirmed 10/05/22] Carvedilol 12.5 mg [Coreg 12.5 mg] 12.5 mg PO BID 03/06/21 [History Confirmed 10/05/22] Levothyroxine Sodium [Euthyrox] 150 tab PO DAILY 07/04/21 [History Confirmed 10/05/22] Potassium Chloride 10 meq PO BID 08/28/21 [History Confirmed 10/05/22] Benazepril HCl [Lotensin] 40 mg PO DAILY 09/12/21 [History Confirmed 10/05/22] Cyanocobalamin (Vitamin B-12) [Vitamin B-12] 1,000 mcg SL DAILY #30 tablet 10/07/21 [Rx Confirmed 10/05/22] Atorvastatin Calcium [Lipitor] 40 mg PO HS 12/26/21 [History Confirmed 10/05/22] Albuterol 2.5 mg/3 ml Neb [Proventil 2.5 mg/3 ml Neb] 2.5 mg IH Q6H PRN PRN 07/08/22 [History Confirmed 10/05/22] Cholecalciferol (Vitamin D3) [Vitamin D] 5,000 unit PO DAILY 07/08/22 [History Confirmed 10/05/22] Aspirin EC 325 mg [Ecotrin 325 MG] 325 mg PO DAILY tablet 07/11/22 [Rx Confirmed 10/05/22] Carbamazepine 200 mg [Tegretol 200 MG] 200 mg PO BID@0800,1600 tablet 07/11/22 [Rx Confirmed 10/05/22] Atorvastatin Calcium 40 mg PO DAILY 10/05/22 [History Confirmed 10/05/22] Cephalexin Mh 500 mg [Keflex 500 mg] 500 mg PO Q6H #40 cap 10/05/22 [Rx] Hydrocodone/Acetaminophen [Hydrocodone-Acetamin 10-325 mg] 1 ea TID 10/05/22 [History Confirmed 10/05/22] Prednisone 20 mg [Deltasone 20 mg] 20 mg PO DAILY 10/05/22 [History Confirmed 10/05/22] Tramadol HCl 50 mg [Ultram 50 mg] 1 ea BID 10/05/22 [History Confirmed 10/05/22] Vit B12/Folic Acid/B6/Aa No.15 [Glycotrol Capsule] 1 ea DAILY 10/05/22 [History Confirmed 10/05/22] Allergies/Adverse Reactions: Allergies Allergy/AdvReac Type Severity Reaction Status Date / Time No Known Drug Allergies Allergy Verified 02/07/23 00:51 - Past Medical History Past Medical History: Yes Neurological History: No Pertinent History ENT History: Cataracts Cardiac History: High Cholesterol, Hypertension Respiratory History: COPD, Emphysema Endocrine Medical History: Hypoglycemia Musculoskelatal History: No Pertinent History GI Medical History: No Pertinent History History: No Pertinent History Pyscho-Social History: Anxiety, Depression Reproductive Disorders: No Pertinent History Comment: trigeminal neuralgia - Past Surgical History Past Surgical History: Yes Neuro Surgical History: No Pertinent History Cardiac History: No Pertinent History Respiratory Surgery: No Pertinent History GI Surgical History: Appendectomy Genitourinary Surgical Hx: No Pertinent History Musculskeletal Surgical Hx: Orthopedic Surgery Female Surgical History: No Pertinent History Other Surgical History: elbow surgery. skin cancer removed. right foot surgery - 12/27/21 - Social History Smoking Status: Former smoker How long have you smoked: 25 Exposure to second hand smoke: No Alcohol: None Drug Use: none - Physical Exam Vital Signs: Vital Signs - 24 hr Temp Pulse Resp BP BP Pulse Ox 02/07/23 00:32 82 02/07/23 00:30 80 22 100 02/07/23 00:24 79 22 156/77 98 02/07/23 00:00 99.7 F 80 20 156/88 99 02/06/23 23:56 96 02/06/23 23:56 99.7 F 81 24 161/84 99 02/06/23 23:30 77 21 171/89 99 02/06/23 23:00 100.0 F 90 20 177/99 100 02/06/23 22:38 204/103 99 02/06/23 22:37 96 H 02/06/23 22:01 111 H 28 H 223/114 93 L 02/06/23 22:00 108 H 32 H 203/113 94 L 02/06/23 21:32 110 H 30 H 191/120 91 L 02/06/23 21:30 108 H 31 H 210/126 93 L 02/06/23 21:21 109 H 23 194/103 94 L 02/06/23 20:53 105 H 23 180/85 99 02/06/23 20:00 110 H 20 136/105 99 02/06/23 19:31 115 H 22 175/109 99 02/06/23 19:17 107 H 29 H 169/93 97 02/06/23 19:00 113 H 33 H 170/107 92 L 02/06/23 18:08 112 H 20 199/91 96 02/06/23 18:00 113 H 22 199/91 02/06/23 17:37 102.2 F 101 H 35 H 170/98 66 L 02/06/23 17:36 109 H 32 H 170/98 General Appearance: no apparent distress Neurologic Exam: uncooperative, depressed mood/affect Neck Exam: supple Respiratory Exam: accessory muscle use, rhonchi Cardiovascular Exam: regular rate/rhythm Gastrointestinal/Abdomen Exam: soft Skin Exam: normal color, No rash, No petechiae, No jaundice Results - Labs Lab/Micro Results: Lab Results-Last 24 Hours 02/06/23 02/06/23 02/06/23 Range/Units 17:45 17:45 17:45 WBC 11.6 H (4.0-10.5) x10^3/uL RBC 4.48 (4.1-5.4) x10^6/uL Hgb 12.8 (12.0-16.0) g/dL Hct 42.0 (35-47) % MCV 93.8 (78-100) fL MCH 28.6 (26-32) pg MCHC 30.5 L (32-36) g/dL RDW 15.0 H (11.5-14.0) % Plt Count 209 (150-450) x10^3/uL MPV 9.7 (7.5-11.0) fL Gran % 88.2 H (36.0-66.0) % Immature Gran % (Auto) 0.8 H (0.00-0.4) % Nucleat RBC Rel Count 0.0 (0.00-0.1) % Eos # (Auto) 0.15 (0-0.5) x10^3/uL Immature Gran # (Auto) 0.09 H (0.00-0.03) x10^3u/L Absolute Lymphs (auto) 0.39 L (1.0-4.6) x10^3/uL Absolute Monos (auto) 0.69 (0.0-1.3) x10^3/uL Absolute Nucleated RBC 0.00 (0.00-0.01) x10^3u/L Lymphocytes % 3.4 L (24.0-44.0) % Monocytes % 6.0 (0.0-12.0) % Eosinophils % 1.3 (0.00-5.0) % Basophils % 0.3 (0.0-0.4) % Absolute Granulocytes 10.20 H (1.4-6.9) x10^3/uL Basophils # 0.04 (0-0.4) x10^3/uL PT 10.6 (9.4-12.5) SECONDS INR 0.97 (0.8-3.0) D-Dimer 1.16 H* (0.0-0.50) mg/L Puncture Site pCO2 (35-45) mmHg pO2 (75-100) mmHg Base Excess (-2.0-2.0) O2 Saturation (94-100) g/dF ABG pH (7.35-7.45) ABG HCO3 (22-28) ABG O2 Sat (Measured) (95-100) % Shabbir Test A-a Gradient a/A Ratio Hemoglobin Carboxyhemoglobin (0.0-6.9) % THgb Methemoglobin (1.4-1.5) % Temperature C POC O2 Flow Rate % Sodium (137-145) mmol/L Potassium (3.5-5.1) mmol/L Chloride (98-107) mmol/L Carbon Dioxide (22-30) mmol/L Anion Gap (5-15) MEQ/L BUN (7-17) mg/dL Creatinine (0.52-1.04) mg/dL Estimated GFR ML/MIN Glucose (74-106) mg/dL Lactic Acid (0.4-2.0) Calcium (8.4-10.2) mg/dL Total Bilirubin (0.2-1.3) mg/dL AST (14-36) U/L ALT (0-35) U/L Alkaline Phosphatase (38-126) U/L Troponin I < 0.012 (0.000-0.034) ng/mL NT-Pro-B Natriuret Pep (<300) pg/mL Serum Total Protein (6.3-8.2) g/dL Albumin (3.5-5.0) g/dL Urine Color (Yellow) Urine Appearance (Clear) Urine pH (4.6-8.0) Ur Specific [place] (1.005-1.030) Urine Protein (Negative) Urine Glucose (UA) (Negative) mg/dL Urine Ketones (Negative) Urine Blood (Negative) Urine Nitrite (Negative) Urine Bilirubin (Negative) Urine Urobilinogen (0.2) mg/dL Ur Leukocyte Esterase (Negative) U Hyaline Cast (Auto) (0-2) /LPF Urine Microscopic RBC (0-5) /HPF Urine Microscopic WBC (0-5) /HPF Ur Epithelial Cells (None Seen) /HPF Urine Bacteria (None Seen) /HPF Urine Culture Reflexed (NO) Influenza Type A Ag (NEGATIVE) Influenza Type B Ag (NEGATIVE) RSV (PCR) (NEGATIVE) SARS-CoV-2 (PCR) (NEGATIVE) Slides for Path Review YES 02/06/23 02/06/23 02/06/23 Range/Units 18:13 18:30 18:48 WBC (4.0-10.5) x10^3/uL RBC (4.1-5.4) x10^6/uL Hgb (12.0-16.0) g/dL Hct (35-47) % MCV (78-100) fL MCH (26-32) pg MCHC (32-36) g/dL RDW (11.5-14.0) % Plt Count (150-450) x10^3/uL MPV (7.5-11.0) fL Gran % (36.0-66.0) % Immature Gran % (Auto) (0.00-0.4) % Nucleat RBC Rel Count (0.00-0.1) % Eos # (Auto) (0-0.5) x10^3/uL Immature Gran # (Auto) (0.00-0.03) x10^3u/L Absolute Lymphs (auto) (1.0-4.6) x10^3/uL Absolute Monos (auto) (0.0-1.3) x10^3/uL Absolute Nucleated RBC (0.00-0.01) x10^3u/L Lymphocytes % (24.0-44.0) % Monocytes % (0.0-12.0) % Eosinophils % (0.00-5.0) % Basophils % (0.0-0.4) % Absolute Granulocytes (1.4-6.9) x10^3/uL Basophils # (0-0.4) x10^3/uL PT (9.4-12.5) SECONDS INR (0.8-3.0) D-Dimer (0.0-0.50) mg/L Puncture Site RIGHT RADIAL pCO2 60 H* (35-45) mmHg pO2 54 L (75-100) mmHg Base Excess 17.0 H (-2.0-2.0) O2 Saturation 84.0 L (94-100) g/dF ABG pH 7.47 H (7.35-7.45) ABG HCO3 43.7 H* (22-28) ABG O2 Sat (Measured) 87.9 L (95-100) % Shabbir Test YES A-a Gradient 71 a/A Ratio 0.43 Hemoglobin 12.9 Carboxyhemoglobin 3.6 (0.0-6.9) % THgb Methemoglobin 0.8 L (1.4-1.5) % Temperature 37.0 C POC O2 Flow Rate 28 % Sodium 138 (137-145) mmol/L Potassium 4.0 4.0 (3.5-5.1) mmol/L Chloride 89 L (98-107) mmol/L Carbon Dioxide 41 H (22-30) mmol/L Anion Gap 12.0 (5-15) MEQ/L BUN 9 (7-17) mg/dL Creatinine 0.67 (0.52-1.04) mg/dL Estimated GFR 99.4 ML/MIN Glucose 115 H (74-106) mg/dL Lactic Acid 1.2 (0.4-2.0) Calcium 9.1 (8.4-10.2) mg/dL Total Bilirubin 0.70 (0.2-1.3) mg/dL AST 30 (14-36) U/L ALT 27 (0-35) U/L Alkaline Phosphatase 122 (38-126) U/L Troponin I (0.000-0.034) ng/mL NT-Pro-B Natriuret Pep 527 (<300) pg/mL Serum Total Protein 8.4 H (6.3-8.2) g/dL Albumin 4.4 (3.5-5.0) g/dL Urine Color (Yellow) Urine Appearance (Clear) Urine pH (4.6-8.0) Ur Specific [place] (1.005-1.030) Urine Protein (Negative) Urine Glucose (UA) (Negative) mg/dL Urine Ketones (Negative) Urine Blood (Negative) Urine Nitrite (Negative) Urine Bilirubin (Negative) Urine Urobilinogen (0.2) mg/dL Ur Leukocyte Esterase (Negative) U Hyaline Cast (Auto) (0-2) /LPF Urine Microscopic RBC (0-5) /HPF Urine Microscopic WBC (0-5) /HPF Ur Epithelial Cells (None Seen) /HPF Urine Bacteria (None Seen) /HPF Urine Culture Reflexed (NO) Influenza Type A Ag POSITIVE (NEGATIVE) Influenza Type B Ag NEGATIVE (NEGATIVE) RSV (PCR) NEGATIVE (NEGATIVE) SARS-CoV-2 (PCR) NEGATIVE (NEGATIVE) Slides for Path Review 02/06/23 02/06/23 02/06/23 Range/Units 19:43 22:40 23:40 WBC (4.0-10.5) x10^3/uL RBC (4.1-5.4) x10^6/uL Hgb (12.0-16.0) g/dL Hct (35-47) % MCV (78-100) fL MCH (26-32) pg MCHC (32-36) g/dL RDW (11.5-14.0) % Plt Count (150-450) x10^3/uL MPV (7.5-11.0) fL Gran % (36.0-66.0) % Immature Gran % (Auto) (0.00-0.4) % Nucleat RBC Rel Count (0.00-0.1) % Eos # (Auto) (0-0.5) x10^3/uL Immature Gran # (Auto) (0.00-0.03) x10^3u/L Absolute Lymphs (auto) (1.0-4.6) x10^3/uL Absolute Monos (auto) (0.0-1.3) x10^3/uL Absolute Nucleated RBC (0.00-0.01) x10^3u/L Lymphocytes % (24.0-44.0) % Monocytes % (0.0-12.0) % Eosinophils % (0.00-5.0) % Basophils % (0.0-0.4) % Absolute Granulocytes (1.4-6.9) x10^3/uL Basophils # (0-0.4) x10^3/uL PT (9.4-12.5) SECONDS INR (0.8-3.0) D-Dimer (0.0-0.50) mg/L Puncture Site RIGHT RADIAL pCO2 125 H* (35-45) mmHg pO2 233 H* (75-100) mmHg Base Excess (-2.0-2.0) O2 Saturation 97.6 (94-100) g/dF ABG pH 7.18 L* (7.35-7.45) ABG HCO3 Pending (22-28) ABG O2 Sat (Measured) 100.0 (95-100) % Shabbir Test YES A-a Gradient a/A Ratio Hemoglobin 12.6 Carboxyhemoglobin 1.7 (0.0-6.9) % THgb Methemoglobin 0.7 L (1.4-1.5) % Temperature 37.0 C POC O2 Flow Rate 100 % Sodium (137-145) mmol/L Potassium 3.7 (3.5-5.1) mmol/L Chloride (98-107) mmol/L Carbon Dioxide (22-30) mmol/L Anion Gap (5-15) MEQ/L BUN (7-17) mg/dL Creatinine (0.52-1.04) mg/dL Estimated GFR ML/MIN Glucose (74-106) mg/dL Lactic Acid (0.4-2.0) Calcium (8.4-10.2) mg/dL Total Bilirubin (0.2-1.3) mg/dL AST (14-36) U/L ALT (0-35) U/L Alkaline Phosphatase (38-126) U/L Troponin I 0.018 (0.000-0.034) ng/mL NT-Pro-B Natriuret Pep (<300) pg/mL Serum Total Protein (6.3-8.2) g/dL Albumin (3.5-5.0) g/dL Urine Color Yellow (Yellow) Urine Appearance Clear (Clear) Urine pH 5.5 (4.6-8.0) Ur Specific [place] 1.015 (1.005-1.030) Urine Protein Trace A (Negative) Urine Glucose (UA) Negative (Negative) mg/dL Urine Ketones Negative (Negative) Urine Blood Negative (Negative) Urine Nitrite Negative (Negative) Urine Bilirubin Negative (Negative) Urine Urobilinogen 0.2 (0.2) mg/dL Ur Leukocyte Esterase Negative (Negative) U Hyaline Cast (Auto) NONE SEEN (0-2) /LPF Urine Microscopic RBC 0-2 (0-5) /HPF Urine Microscopic WBC 0-2 (0-5) /HPF Ur Epithelial Cells None Seen (None Seen) /HPF Urine Bacteria None Seen (None Seen) /HPF Urine Culture Reflexed NO (NO) Influenza Type A Ag (NEGATIVE) Influenza Type B Ag (NEGATIVE) RSV (PCR) (NEGATIVE) SARS-CoV-2 (PCR) (NEGATIVE) Slides for Path Review - Radiology Impressions Radiology Exams & Impressions: Radiology Procedures Category Date Time Status CHEST 1 VIEW (PORTABLE) Stat Exams 02/06/23 18:14 Completed CHEST WITH CONTRAST [CT] Stat Exams 02/06/23 20:44 Completed HEAD WITHOUT CONTRAST [CT] Stat Exams 02/06/23 22:15 Completed - Other Procedures and Tests Respiratory Therapy 02/07/23 00:15 BiPap/CPAP ROUTINE Respiratory Therapy Assessment DAILY 02/07/23 00:30 EKG REPEAT IN AM Assessment/Plan (1) Respiratory acidosis Current Visit: Yes Status: Acute Assessment & Plan: Marked respiratory acidosis with pCO2 123 and pH 7.18 1. BiPap 15/5 2. Solumedrol/duonebs 3. Monitor ABG 4. Hopefully can avoid intubation Code(s): E87.29 - OTHER ACIDOSIS (2) Confusion Current Visit: Yes Status: Acute Assessment & Plan: Likely from infection versus CO2 narcosis Code(s): R41.0 - DISORIENTATION, UNSPECIFIED (3) HTN (hypertension) Current Visit: Yes Status: Acute Assessment & Plan: BP running high, received one dose labetalol 1. Will continue bp meds 2. Limit salt load 3. Monitor bp readings Code(s): I10 - ESSENTIAL (PRIMARY) HYPERTENSION (4) Influenza A H1N1 infection Current Visit: Yes Status: Acute Assessment & Plan: Influenza with respiratory distress 1. Steroids 2. Tamiflu 3. Monitor O2 sats Code(s): J10.1 - FLU DUE TO OTH IDENT INFLUENZA VIRUS W OTH RESP MANIFEST Telemedicine Encounter - Telemedicine Encounter Telemedicine Encounter: The entirety of this encounter was performed via Telemedicine"
[2023-02-07] MEDS ORDERED: DUONEB 0.5-3 MG/3 ml Neb IH PRN (01:27)
[2023-02-07 03:03] LABS: A-aADO2 207; ABG HEMOGLOBIN 11.9; ABG POTASSIUM 3.9 (3.5-5.1); ARTERIAL BLD GAS O2 SATURATION 96.2 % (95-100); ARTERIAL BLOOD GAS BASE EXCESS 16.4 (-2.0-2.0); ARTERIAL BLOOD GAS FIO2 60 %; ARTERIAL BLOOD GAS PO2 80 mmHg (75-100); ARTERIAL BLOOD GAS VENT MODE BiPAP; ARTERIAL BLOOD GAS pH 7.24 (7.35-7.45); CARBOXYHEMOGLOBIN 1.4 % THgb (0.0-6.9); HCO3- 48.4 (22-28); HGB O2 SAT 94.2 g/dF (94-100); Methhemoglobin 0.7 % (1.4-1.5); paO2 pAO1 0.28
[2023-02-07 03:04] LABS: ABG SITE RIGHT RADIAL; ALLEN TEST OK? YES; ARTERIAL BLOOD GAS PCO2 113 mmHg (35-45)
[2023-02-07] MEDS: xanAX 0.25 MG PO SCH ×3 (03:24→15:26)
[2023-02-07 03:33] LABS: Absolute Neutrophil Ct (ANC) 9.37 x10^3/uL (1.4-6.9); BASOPHIL % 0.6 % (0.0-0.4); Basophil (Absolute #) 0.06 x10^3/uL (0-0.4); Eosinophil % 0.8 % (0.00-5.0); Eosinophil (Absolute #) 0.09 x10^3/uL (0-0.5); Hematocrit 41.9 % (35-47); Hemoglobin 12.4 g/dL (12.0-16.0); IMMATURE GRAN % 1.8 % (0.00-0.4); Lymphocyte (Absolute #) 0.38 x10^3/uL (1.0-4.6); Lymphocytes % 3.5 % (24.0-44.0); Mean Cell Volume 95.9 fL (78-100); Mean Corpuscular Hemoglobin 28.4 pg (26-32); Mean Corpuscular Hgb Concent. 29.6 g/dL (32-36); Mean Platelet Volume 9.2 fL (7.5-11.0); Monocyte (Absolute #) 0.78 x10^3/uL (0.0-1.3); Monocytes % 7.2 % (0.0-12.0); Neutrophil % 86.1 % (36.0-66.0); Platelet Count 178 x10^3/uL (150-450); Red Blood Count 4.37 x10^6/uL (4.1-5.4); White Blood Count 10.9 x10^3/uL (4.0-10.5)
[2023-02-07 04:03] LABS: ALBUMIN 3.8 g/dL (3.5-5.0); BILIRUBIN,TOTAL 0.4 mg/dL (0.2-1.3); Calcium 8.5 mg/dL (8.4-10.2); Creatinine 1 0.62 mg/dL (0.52-1.04); EST GLOMERULAR FILTRATION RATE 101.3 ML/MIN; Potassium 3.8 mmol/L (3.5-5.1); Total Protein 7.1 g/dL (6.3-8.2)
[2023-02-07] MEDS: APRESOLINE 20 MG/ML INJ IV PRN ×2 (04:04→11:04)
[2023-02-07 04:20] LABS: ANION GAP 8.8 MEQ/L (5-15)
[2023-02-07] MEDS ORDERED: Ativan 2 MG/1 ML VIAL ONE (04:36)
[2023-02-07] MEDS: Ativan 2 MG/1 ML VIAL IV PRN ×2 (04:40→08:55)
[2023-02-07] MEDS: TYLENOL 325 MG PO PRN ×2 (04:52→15:26)
[2023-02-07 08:51] LABS: A-aADO2 241; ABG HEMOGLOBIN 12.4; ABG POTASSIUM 3.9 (3.5-5.1); ARTERIAL BLD GAS O2 SATURATION 97.4 % (95-100); ARTERIAL BLD GAS TIDAL VOLUME 500 cc; ARTERIAL BLOOD GAS BASE EXCESS 14.6 (-2.0-2.0); ARTERIAL BLOOD GAS FIO2 60 %; ARTERIAL BLOOD GAS PO2 76 mmHg (75-100); ARTERIAL BLOOD GAS VENT MODE AVAPS; ARTERIAL BLOOD GAS pH 7.31 (7.35-7.45); CARBOXYHEMOGLOBIN 1.5 % THgb (0.0-6.9); HCO3- 44.8 (22-28); HGB O2 SAT 95.3 g/dF (94-100); Methhemoglobin 0.7 % (1.4-1.5); paO2 pAO1 0.24
[2023-02-07 08:52] LABS: ABG SITE LEFT BRACHIAL; ARTERIAL BLOOD GAS PCO2 89 mmHg (35-45)
[2023-02-07] MEDS ORDERED: Tamiflu 75MG Capsule PO SCH (10:00)
[2023-02-07] MEDS ORDERED: solu-MEDROL 40 MG, Sterile H2O 10 ml 1 ML IV SCH ×2 (10:00)
--- NOTE | 2023-02-07 11:27 | PCM.DS ---
Discharge Summary Date of Admission: 02/06/23 23:40 Date of Discharge: 02/07/23 Admitting Physician: VALERIO ACEVEDO MD Consults: Consults on Case 02/07/23 04:47 Cardiology Consult [Notify Wedding Day Coordinator of Admit] ROUTINE Primary Care Provider: KADEN SCHAFER NP <CLAUDIA SHOOK - Last Filed: 02/07/23 11:19> Date of Admission: 02/06/23 23:40 Date of Discharge: 02/07/23 Admitting Physician: VALERIO ACEVEDO MD Consults: Consults on Case 02/07/23 04:47 Cardiology Consult [Notify Wedding Day Coordinator of Admit] ROUTINE Primary Care Provider: KADEN SCHAFER NP <CLARISSE REY - Last Filed: 02/07/23 20:48> Allergies <CLAUDIA SHOOK - Last Filed: 02/07/23 11:19> <CLARISSE REY - Last Filed: 02/07/23 20:48> Allergies No Known Drug Allergies Allergy (Verified 02/07/23 00:51) Hospital Summary - Hospital Course Hospital Course: Ms. Hoskins is a 62 year old female with a past medical history significant for hypertension, hyperlipidemia, anxiety, and previous tobacco use who presented to the hospital with complaints of increasing shortness of breath, confusion, and fever. She had taken some ibuprofen for fever but when she arrived, she was hypoxic. She tested positive for influenza, and initial labs were notable for an alkalosis with pH 7.47 though pCO2 was quite high at 63. She was admitted to the ICU where she remains lethargic, poorly arousable and unable to provide any significant history. ABG has improved this morning after being placed on AVAPS. I am concerned she may need intubated and she continues to have an elevated resp rate and is lethargic. She is agreeable to tx to a higher level of care after discussion. - Vitals & Intake/Output Vital Signs: Vital Signs Temperature 99.3 F 02/07/23 09:00 Pulse Rate 89 02/07/23 11:00 Respiratory Rate 27 H 02/07/23 11:00 Blood Pressure 166/75 02/07/23 11:00 O2 Sat by Pulse Oximetry 98 02/07/23 11:00 Intake & Output: Intake & Output 02/04/23 02/05/23 02/06/23 02/07/23 11:59 11:59 11:59 11:59 Intake Total 546 Output Total 850 Balance -304 Weight 81.647 kg - Lab Result Diagrams: 02/07/23 03:30 02/07/23 03:30 Lab Results-Last 24 Hrs: Lab Results-Last 24 Hours 02/06/23 02/06/23 02/06/23 Range/Units 17:45 17:45 17:45 WBC 11.6 H (4.0-10.5) x10^3/uL RBC 4.48 (4.1-5.4) x10^6/uL Hgb 12.8 (12.0-16.0) g/dL Hct 42.0 (35-47) % MCV 93.8 (78-100) fL MCH 28.6 (26-32) pg MCHC 30.5 L (32-36) g/dL RDW 15.0 H (11.5-14.0) % Plt Count 209 (150-450) x10^3/uL MPV 9.7 (7.5-11.0) fL Gran % 88.2 H (36.0-66.0) % Immature Gran % (Auto) 0.8 H (0.00-0.4) % Nucleat RBC Rel Count 0.0 (0.00-0.1) % Eos # (Auto) 0.15 (0-0.5) x10^3/uL Immature Gran # (Auto) 0.09 H (0.00-0.03) x10^3u/L Absolute Lymphs (auto) 0.39 L (1.0-4.6) x10^3/uL Absolute Monos (auto) 0.69 (0.0-1.3) x10^3/uL Absolute Nucleated RBC 0.00 (0.00-0.01) x10^3u/L Lymphocytes % 3.4 L (24.0-44.0) % Monocytes % 6.0 (0.0-12.0) % Eosinophils % 1.3 (0.00-5.0) % Basophils % 0.3 (0.0-0.4) % Absolute Granulocytes 10.20 H (1.4-6.9) x10^3/uL Basophils # 0.04 (0-0.4) x10^3/uL PT 10.6 (9.4-12.5) SECONDS INR 0.97 (0.8-3.0) D-Dimer 1.16 H* (0.0-0.50) mg/L Puncture Site pCO2 (35-45) mmHg pO2 (75-100) mmHg Base Excess (-2.0-2.0) O2 Saturation (94-100) g/dF ABG pH (7.35-7.45) ABG HCO3 (22-28) ABG O2 Sat (Measured) (95-100) % ABG O2 Content Shabbir Test A-a Gradient a/A Ratio Hemoglobin Carboxyhemoglobin (0.0-6.9) % THgb Methemoglobin (1.4-1.5) % Temperature C POC O2 Flow Rate % Vent Mode Vent Rate Tidal Volume PEEP Pressure Support Inspiratory BiPAP Expiratory BiPAP Sodium (137-145) mmol/L Potassium (3.5-5.1) mmol/L Chloride (98-107) mmol/L Carbon Dioxide (22-30) mmol/L Anion Gap (5-15) MEQ/L BUN (7-17) mg/dL Creatinine (0.52-1.04) mg/dL Estimated GFR ML/MIN Glucose (74-106) mg/dL Lactic Acid (0.4-2.0) Calcium (8.4-10.2) mg/dL Total Bilirubin (0.2-1.3) mg/dL AST (14-36) U/L ALT (0-35) U/L Alkaline Phosphatase (38-126) U/L Troponin I < 0.012 (0.000-0.034) ng/mL NT-Pro-B Natriuret Pep (<300) pg/mL Serum Total Protein (6.3-8.2) g/dL Albumin (3.5-5.0) g/dL Prealbumin (17.6-36.0) mg/dL Urine Color (Yellow) Urine Appearance (Clear) Urine pH (4.6-8.0) Ur Specific Mcdonald (1.005-1.030) Urine Protein (Negative) Urine Glucose (UA) (Negative) mg/dL Urine Ketones (Negative) Urine Blood (Negative) Urine Nitrite (Negative) Urine Bilirubin (Negative) Urine Urobilinogen (0.2) mg/dL Ur Leukocyte Esterase (Negative) U Hyaline Cast (Auto) (0-2) /LPF Urine Microscopic RBC (0-5) /HPF Urine Microscopic WBC (0-5) /HPF Ur Epithelial Cells (None Seen) /HPF Urine Bacteria (None Seen) /HPF Urine Culture Reflexed (NO) Influenza Type A Ag (NEGATIVE) Influenza Type B Ag (NEGATIVE) RSV (PCR) (NEGATIVE) SARS-CoV-2 (PCR) (NEGATIVE) Slides for Path Review YES 02/06/23 02/06/23 02/06/23 Range/Units 18:13 18:30 18:48 WBC (4.0-10.5) x10^3/uL RBC (4.1-5.4) x10^6/uL Hgb (12.0-16.0) g/dL Hct (35-47) % MCV (78-100) fL MCH (26-32) pg MCHC (32-36) g/dL RDW (11.5-14.0) % Plt Count (150-450) x10^3/uL MPV (7.5-11.0) fL Gran % (36.0-66.0) % Immature Gran % (Auto) (0.00-0.4) % Nucleat RBC Rel Count (0.00-0.1) % Eos # (Auto) (0-0.5) x10^3/uL Immature Gran # (Auto) (0.00-0.03) x10^3u/L Absolute Lymphs (auto) (1.0-4.6) x10^3/uL Absolute Monos (auto) (0.0-1.3) x10^3/uL Absolute Nucleated RBC (0.00-0.01) x10^3u/L Lymphocytes % (24.0-44.0) % Monocytes % (0.0-12.0) % Eosinophils % (0.00-5.0) % Basophils % (0.0-0.4) % Absolute Granulocytes (1.4-6.9) x10^3/uL Basophils # (0-0.4) x10^3/uL PT (9.4-12.5) SECONDS INR (0.8-3.0) D-Dimer (0.0-0.50) mg/L Puncture Site RIGHT RADIAL pCO2 60 H* (35-45) mmHg pO2 54 L (75-100) mmHg Base Excess 17.0 H (-2.0-2.0) O2 Saturation 84.0 L (94-100) g/dF ABG pH 7.47 H (7.35-7.45) ABG HCO3 43.7 H* (22-28) ABG O2 Sat (Measured) 87.9 L (95-100) % ABG O2 Content Shabbir Test YES A-a Gradient 71 a/A Ratio 0.43 Hemoglobin 12.9 Carboxyhemoglobin 3.6 (0.0-6.9) % THgb Methemoglobin 0.8 L (1.4-1.5) % Temperature 37.0 C POC O2 Flow Rate 28 % Vent Mode Vent Rate Tidal Volume PEEP Pressure Support Inspiratory BiPAP Expiratory BiPAP Sodium 138 (137-145) mmol/L Potassium 4.0 4.0 (3.5-5.1) mmol/L Chloride 89 L (98-107) mmol/L Carbon Dioxide 41 H (22-30) mmol/L Anion Gap 12.0 (5-15) MEQ/L BUN 9 (7-17) mg/dL Creatinine 0.67 (0.52-1.04) mg/dL Estimated GFR 99.4 ML/MIN Glucose 115 H (74-106) mg/dL Lactic Acid 1.2 (0.4-2.0) Calcium 9.1 (8.4-10.2) mg/dL Total Bilirubin 0.70 (0.2-1.3) mg/dL AST 30 (14-36) U/L ALT 27 (0-35) U/L Alkaline Phosphatase 122 (38-126) U/L Troponin I (0.000-0.034) ng/mL NT-Pro-B Natriuret Pep 527 (<300) pg/mL Serum Total Protein 8.4 H (6.3-8.2) g/dL Albumin 4.4 (3.5-5.0) g/dL Prealbumin (17.6-36.0) mg/dL Urine Color (Yellow) Urine Appearance (Clear) Urine pH (4.6-8.0) Ur Specific Mcdonald (1.005-1.030) Urine Protein (Negative) Urine Glucose (UA) (Negative) mg/dL Urine Ketones (Negative) Urine Blood (Negative) Urine Nitrite (Negative) Urine Bilirubin (Negative) Urine Urobilinogen (0.2) mg/dL Ur Leukocyte Esterase (Negative) U Hyaline Cast (Auto) (0-2) /LPF Urine Microscopic RBC (0-5) /HPF Urine Microscopic WBC (0-5) /HPF Ur Epithelial Cells (None Seen) /HPF Urine Bacteria (None Seen) /HPF Urine Culture Reflexed (NO) Influenza Type A Ag POSITIVE (NEGATIVE) Influenza Type B Ag NEGATIVE (NEGATIVE) RSV (PCR) NEGATIVE (NEGATIVE) SARS-CoV-2 (PCR) NEGATIVE (NEGATIVE) Slides for Path Review 02/06/23 02/06/23 02/06/23 Range/Units 19:43 22:40 23:40 WBC (4.0-10.5) x10^3/uL RBC (4.1-5.4) x10^6/uL Hgb (12.0-16.0) g/dL Hct (35-47) % MCV (78-100) fL MCH (26-32) pg MCHC (32-36) g/dL RDW (11.5-14.0) % Plt Count (150-450) x10^3/uL MPV (7.5-11.0) fL Gran % (36.0-66.0) % Immature Gran % (Auto) (0.00-0.4) % Nucleat RBC Rel Count (0.00-0.1) % Eos # (Auto) (0-0.5) x10^3/uL Immature Gran # (Auto) (0.00-0.03) x10^3u/L Absolute Lymphs (auto) (1.0-4.6) x10^3/uL Absolute Monos (auto) (0.0-1.3) x10^3/uL Absolute Nucleated RBC (0.00-0.01) x10^3u/L Lymphocytes % (24.0-44.0) % Monocytes % (0.0-12.0) % Eosinophils % (0.00-5.0) % Basophils % (0.0-0.4) % Absolute Granulocytes (1.4-6.9) x10^3/uL Basophils # (0-0.4) x10^3/uL PT (9.4-12.5) SECONDS INR (0.8-3.0) D-Dimer (0.0-0.50) mg/L Puncture Site Cancelled pCO2 Cancelled (35-45) mmHg pO2 Cancelled (75-100) mmHg Base Excess Cancelled (-2.0-2.0) O2 Saturation Cancelled (94-100) g/dF ABG pH Cancelled (7.35-7.45) ABG HCO3 Cancelled (22-28) ABG O2 Sat (Measured) Cancelled (95-100) % ABG O2 Content Cancelled Shabbir Test Cancelled A-a Gradient Cancelled a/A Ratio Cancelled Hemoglobin Cancelled Carboxyhemoglobin Cancelled (0.0-6.9) % THgb Methemoglobin Cancelled (1.4-1.5) % Temperature Cancelled C POC O2 Flow Rate Cancelled % Vent Mode Cancelled Vent Rate Cancelled Tidal Volume Cancelled PEEP Cancelled Pressure Support Cancelled Inspiratory BiPAP Cancelled Expiratory BiPAP Cancelled Sodium (137-145) mmol/L Potassium Cancelled (3.5-5.1) mmol/L Chloride (98-107) mmol/L Carbon Dioxide Cancelled (22-30) mmol/L Anion Gap (5-15) MEQ/L BUN (7-17) mg/dL Creatinine (0.52-1.04) mg/dL Estimated GFR ML/MIN Glucose (74-106) mg/dL Lactic Acid (0.4-2.0) Calcium (8.4-10.2) mg/dL Total Bilirubin (0.2-1.3) mg/dL AST (14-36) U/L ALT (0-35) U/L Alkaline Phosphatase (38-126) U/L Troponin I 0.018 (0.000-0.034) ng/mL NT-Pro-B Natriuret Pep (<300) pg/mL Serum Total Protein (6.3-8.2) g/dL Albumin (3.5-5.0) g/dL Prealbumin (17.6-36.0) mg/dL Urine Color Yellow (Yellow) Urine Appearance Clear (Clear) Urine pH 5.5 (4.6-8.0) Ur Specific Mcdonald 1.015 (1.005-1.030) Urine Protein Trace A (Negative) Urine Glucose (UA) Negative (Negative) mg/dL Urine Ketones Negative (Negative) Urine Blood Negative (Negative) Urine Nitrite Negative (Negative) Urine Bilirubin Negative (Negative) Urine Urobilinogen 0.2 (0.2) mg/dL Ur Leukocyte Esterase Negative (Negative) U Hyaline Cast (Auto) NONE SEEN (0-2) /LPF Urine Microscopic RBC 0-2 (0-5) /HPF Urine Microscopic WBC 0-2 (0-5) /HPF Ur Epithelial Cells None Seen (None Seen) /HPF Urine Bacteria None Seen (None Seen) /HPF Urine Culture Reflexed NO (NO) Influenza Type A Ag (NEGATIVE) Influenza Type B Ag (NEGATIVE) RSV (PCR) (NEGATIVE) SARS-CoV-2 (PCR) (NEGATIVE) Slides for Path Review 02/07/23 02/07/23 02/07/23 Range/Units 02:54 03:30 03:30 WBC 10.9 H (4.0-10.5) x10^3/uL RBC 4.37 (4.1-5.4) x10^6/uL Hgb 12.4 (12.0-16.0) g/dL Hct 41.9 (35-47) % MCV 95.9 (78-100) fL MCH 28.4 (26-32) pg MCHC 29.6 L (32-36) g/dL RDW 15.0 H (11.5-14.0) % Plt Count 178 (150-450) x10^3/uL MPV 9.2 (7.5-11.0) fL Gran % 86.1 H (36.0-66.0) % Immature Gran % (Auto) 1.8 H (0.00-0.4) % Nucleat RBC Rel Count 0.0 (0.00-0.1) % Eos # (Auto) 0.09 (0-0.5) x10^3/uL Immature Gran # (Auto) 0.20 H (0.00-0.03) x10^3u/L Absolute Lymphs (auto) 0.38 L (1.0-4.6) x10^3/uL Absolute Monos (auto) 0.78 (0.0-1.3) x10^3/uL Absolute Nucleated RBC 0.00 (0.00-0.01) x10^3u/L Lymphocytes % 3.5 L (24.0-44.0) % Monocytes % 7.2 (0.0-12.0) % Eosinophils % 0.8 (0.00-5.0) % Basophils % 0.6 (0.0-0.4) % Absolute Granulocytes 9.37 H (1.4-6.9) x10^3/uL Basophils # 0.06 (0-0.4) x10^3/uL PT (9.4-12.5) SECONDS INR (0.8-3.0) D-Dimer (0.0-0.50) mg/L Puncture Site RIGHT RADIAL pCO2 113 H* (35-45) mmHg pO2 80 (75-100) mmHg Base Excess 16.4 H (-2.0-2.0) O2 Saturation 94.2 (94-100) g/dF ABG pH 7.24 L* (7.35-7.45) ABG HCO3 48.4 H* (22-28) ABG O2 Sat (Measured) 96.2 (95-100) % ABG O2 Content Shabbir Test YES A-a Gradient 207 a/A Ratio 0.28 Hemoglobin 11.9 Carboxyhemoglobin 1.4 (0.0-6.9) % THgb Methemoglobin 0.7 L (1.4-1.5) % Temperature 37.0 C POC O2 Flow Rate 60 % Vent Mode BiPAP Vent Rate Tidal Volume PEEP 7.0 Pressure Support Inspiratory BiPAP Expiratory BiPAP Sodium (137-145) mmol/L Potassium 3.9 (3.5-5.1) mmol/L Chloride (98-107) mmol/L Carbon Dioxide (22-30) mmol/L Anion Gap (5-15) MEQ/L BUN (7-17) mg/dL Creatinine (0.52-1.04) mg/dL Estimated GFR ML/MIN Glucose (74-106) mg/dL Lactic Acid (0.4-2.0) Calcium (8.4-10.2) mg/dL Total Bilirubin (0.2-1.3) mg/dL AST (14-36) U/L ALT (0-35) U/L Alkaline Phosphatase (38-126) U/L Troponin I 0.045 H* (0.000-0.034) ng/mL NT-Pro-B Natriuret Pep (<300) pg/mL Serum Total Protein (6.3-8.2) g/dL Albumin (3.5-5.0) g/dL Prealbumin (17.6-36.0) mg/dL Urine Color (Yellow) Urine Appearance (Clear) Urine pH (4.6-8.0) Ur Specific Mcdonald (1.005-1.030) Urine Protein (Negative) Urine Glucose (UA) (Negative) mg/dL Urine Ketones (Negative) Urine Blood (Negative) Urine Nitrite (Negative) Urine Bilirubin (Negative) Urine Urobilinogen (0.2) mg/dL Ur Leukocyte Esterase (Negative) U Hyaline Cast (Auto) (0-2) /LPF Urine Microscopic RBC (0-5) /HPF Urine Microscopic WBC (0-5) /HPF Ur Epithelial Cells (None Seen) /HPF Urine Bacteria (None Seen) /HPF Urine Culture Reflexed (NO) Influenza Type A Ag (NEGATIVE) Influenza Type B Ag (NEGATIVE) RSV (PCR) (NEGATIVE) SARS-CoV-2 (PCR) (NEGATIVE) Slides for Path Review 02/07/23 02/07/23 02/07/23 Range/Units 03:30 03:30 08:50 WBC (4.0-10.5) x10^3/uL RBC (4.1-5.4) x10^6/uL Hgb (12.0-16.0) g/dL Hct (35-47) % MCV (78-100) fL MCH (26-32) pg MCHC (32-36) g/dL RDW (11.5-14.0) % Plt Count (150-450) x10^3/uL MPV (7.5-11.0) fL Gran % (36.0-66.0) % Immature Gran % (Auto) (0.00-0.4) % Nucleat RBC Rel Count (0.00-0.1) % Eos # (Auto) (0-0.5) x10^3/uL Immature Gran # (Auto) (0.00-0.03) x10^3u/L Absolute Lymphs (auto) (1.0-4.6) x10^3/uL Absolute Monos (auto) (0.0-1.3) x10^3/uL Absolute Nucleated RBC (0.00-0.01) x10^3u/L Lymphocytes % (24.0-44.0) % Monocytes % (0.0-12.0) % Eosinophils % (0.00-5.0) % Basophils % (0.0-0.4) % Absolute Granulocytes (1.4-6.9) x10^3/uL Basophils # (0-0.4) x10^3/uL PT (9.4-12.5) SECONDS INR (0.8-3.0) D-Dimer (0.0-0.50) mg/L Puncture Site LEFT BRACHIAL pCO2 89 H* (35-45) mmHg pO2 76 (75-100) mmHg Base Excess 14.6 H (-2.0-2.0) O2 Saturation 95.3 (94-100) g/dF ABG pH 7.31 L (7.35-7.45) ABG HCO3 44.8 H* (22-28) ABG O2 Sat (Measured) 97.4 (95-100) % ABG O2 Content Shabbir Test NOT APPLICABLE A-a Gradient 241 a/A Ratio 0.24 Hemoglobin 12.4 Carboxyhemoglobin 1.5 (0.0-6.9) % THgb Methemoglobin 0.7 L (1.4-1.5) % Temperature 37.0 C POC O2 Flow Rate 60 % Vent Mode AVAPS Vent Rate Tidal Volume 500 PEEP 7.0 Pressure Support Inspiratory BiPAP Expiratory BiPAP Sodium 140 (137-145) mmol/L Potassium 3.8 3.9 (3.5-5.1) mmol/L Chloride 92 L (98-107) mmol/L Carbon Dioxide 43 H (22-30) mmol/L Anion Gap 8.8 (5-15) MEQ/L BUN 10 (7-17) mg/dL Creatinine 0.62 (0.52-1.04) mg/dL Estimated GFR 101.3 ML/MIN Glucose 118 H (74-106) mg/dL Lactic Acid (0.4-2.0) Calcium 8.5 (8.4-10.2) mg/dL Total Bilirubin 0.40 (0.2-1.3) mg/dL AST 31 (14-36) U/L ALT 25 (0-35) U/L Alkaline Phosphatase 101 (38-126) U/L Troponin I (0.000-0.034) ng/mL NT-Pro-B Natriuret Pep 1550 (<300) pg/mL Serum Total Protein 7.1 (6.3-8.2) g/dL Albumin 3.8 (3.5-5.0) g/dL Prealbumin 18.02 (17.6-36.0) mg/dL Urine Color (Yellow) Urine Appearance (Clear) Urine pH (4.6-8.0) Ur Specific Mcdonald (1.005-1.030) Urine Protein (Negative) Urine Glucose (UA) (Negative) mg/dL Urine Ketones (Negative) Urine Blood (Negative) Urine Nitrite (Negative) Urine Bilirubin (Negative) Urine Urobilinogen (0.2) mg/dL Ur Leukocyte Esterase (Negative) U Hyaline Cast (Auto) (0-2) /LPF Urine Microscopic RBC (0-5) /HPF Urine Microscopic WBC (0-5) /HPF Ur Epithelial Cells (None Seen) /HPF Urine Bacteria (None Seen) /HPF Urine Culture Reflexed (NO) Influenza Type A Ag (NEGATIVE) Influenza Type B Ag (NEGATIVE) RSV (PCR) (NEGATIVE) SARS-CoV-2 (PCR) (NEGATIVE) Slides for Path Review Micro Results-Entire Visit: Microbiology 02/06/23 19:46 Urine Culture - Preliminary Urine, Indwelling Catheter NO GROWTH TO DATE - Radiology Exams Ordered Rad Exams-Entire Visit: Radiology Procedures Category Date Time Status CHEST 1 VIEW (PORTABLE) Stat Exams 02/06/23 18:14 Completed CHEST WITH CONTRAST [CT] Stat Exams 02/06/23 20:44 Completed HEAD WITHOUT CONTRAST [CT] Stat Exams 02/06/23 22:15 Completed - Procedures and Test Procedures and Tests throughout Hospitalization: Therapy Orders & Screens 02/07/23 00:15 BiPap/CPAP ROUTINE Comment: Respiratory Therapy Assessment DAILY Comment: 02/07/23 00:30 EKG REPEAT IN AM Comment: Respiratory Therapy Consult ONCE Comment: Reason For Exam: 02/07/23 03:45 Oxygen Nasal Cannula 3 lpm Comment: Diagnosis: shortness of breath <CLAUDIA SHOOK - Last Filed: 02/07/23 11:19> - Vitals & Intake/Output Vital Signs: Vital Signs Temperature 100.0 F 02/07/23 16:00 Pulse Rate 89 02/07/23 16:00 Respiratory Rate 20 02/07/23 16:00 Blood Pressure 158/88 02/07/23 16:00 O2 Sat by Pulse Oximetry 97 02/07/23 16:00 Intake & Output: Intake & Output 02/05/23 02/06/23 02/07/23 02/08/23 11:59 11:59 11:59 11:59 Intake Total 546 693 Output Total 850 700 Balance -304 -7 Weight 81.647 kg - Lab Result Diagrams: 02/07/23 03:30 02/07/23 03:30 Lab Results-Last 24 Hrs: Lab Results-Last 24 Hours 02/06/23 02/06/23 02/06/23 Range/Units 18:13 22:40 23:40 WBC (4.0-10.5) x10^3/uL RBC (4.1-5.4) x10^6/uL Hgb (12.0-16.0) g/dL Hct (35-47) % MCV (78-100) fL MCH (26-32) pg MCHC (32-36) g/dL RDW (11.5-14.0) % Plt Count (150-450) x10^3/uL MPV (7.5-11.0) fL Gran % (36.0-66.0) % Immature Gran % (Auto) (0.00-0.4) % Nucleat RBC Rel Count (0.00-0.1) % Eos # (Auto) (0-0.5) x10^3/uL Immature Gran # (Auto) (0.00-0.03) x10^3u/L Absolute Lymphs (auto) (1.0-4.6) x10^3/uL Absolute Monos (auto) (0.0-1.3) x10^3/uL Absolute Nucleated RBC (0.00-0.01) x10^3u/L Lymphocytes % (24.0-44.0) % Monocytes % (0.0-12.0) % Eosinophils % (0.00-5.0) % Basophils % (0.0-0.4) % Absolute Granulocytes (1.4-6.9) x10^3/uL Basophils # (0-0.4) x10^3/uL Puncture Site Cancelled pCO2 Cancelled pO2 Cancelled Base Excess Cancelled O2 Saturation Cancelled ABG pH Cancelled ABG HCO3 Cancelled ABG O2 Sat (Measured) Cancelled ABG O2 Content Cancelled Shabbir Test Cancelled A-a Gradient Cancelled a/A Ratio Cancelled Hemoglobin Cancelled Carboxyhemoglobin Cancelled Methemoglobin Cancelled Potassium Cancelled Temperature Cancelled POC O2 Flow Rate Cancelled Vent Mode Cancelled Vent Rate Cancelled Tidal Volume Cancelled PEEP Cancelled Pressure Support Cancelled Inspiratory BiPAP Cancelled Expiratory BiPAP Cancelled Sodium (137-145) mmol/L Chloride (98-107) mmol/L Carbon Dioxide 41 H Cancelled (22-30) mmol/L Anion Gap 12.0 (5-15) MEQ/L BUN (7-17) mg/dL Creatinine (0.52-1.04) mg/dL Estimated GFR ML/MIN Glucose (74-106) mg/dL Calcium (8.4-10.2) mg/dL Total Bilirubin (0.2-1.3) mg/dL AST (14-36) U/L ALT (0-35) U/L Alkaline Phosphatase (38-126) U/L Troponin I 0.018 (0.000-0.034) ng/mL NT-Pro-B Natriuret Pep (<300) pg/mL Serum Total Protein (6.3-8.2) g/dL Albumin (3.5-5.0) g/dL Prealbumin (17.6-36.0) mg/dL 02/07/23 02/07/23 02/07/23 Range/Units 02:54 03:30 03:30 WBC 10.9 H (4.0-10.5) x10^3/uL RBC 4.37 (4.1-5.4) x10^6/uL Hgb 12.4 (12.0-16.0) g/dL Hct 41.9 (35-47) % MCV 95.9 (78-100) fL MCH 28.4 (26-32) pg MCHC 29.6 L (32-36) g/dL RDW 15.0 H (11.5-14.0) % Plt Count 178 (150-450) x10^3/uL MPV 9.2 (7.5-11.0) fL Gran % 86.1 H (36.0-66.0) % Immature Gran % (Auto) 1.8 H (0.00-0.4) % Nucleat RBC Rel Count 0.0 (0.00-0.1) % Eos # (Auto) 0.09 (0-0.5) x10^3/uL Immature Gran # (Auto) 0.20 H (0.00-0.03) x10^3u/L Absolute Lymphs (auto) 0.38 L (1.0-4.6) x10^3/uL Absolute Monos (auto) 0.78 (0.0-1.3) x10^3/uL Absolute Nucleated RBC 0.00 (0.00-0.01) x10^3u/L Lymphocytes % 3.5 L (24.0-44.0) % Monocytes % 7.2 (0.0-12.0) % Eosinophils % 0.8 (0.00-5.0) % Basophils % 0.6 (0.0-0.4) % Absolute Granulocytes 9.37 H (1.4-6.9) x10^3/uL Basophils # 0.06 (0-0.4) x10^3/uL Puncture Site RIGHT RADIAL pCO2 113 H* pO2 80 Base Excess 16.4 H O2 Saturation 94.2 ABG pH 7.24 L* ABG HCO3 48.4 H* ABG O2 Sat (Measured) 96.2 ABG O2 Content Shabbir Test YES A-a Gradient 207 a/A Ratio 0.28 Hemoglobin 11.9 Carboxyhemoglobin 1.4 Methemoglobin 0.7 L Potassium 3.9 Temperature 37.0 POC O2 Flow Rate 60 Vent Mode BiPAP Vent Rate Tidal Volume PEEP 7.0 Pressure Support Inspiratory BiPAP Expiratory BiPAP Sodium (137-145) mmol/L Chloride (98-107) mmol/L Carbon Dioxide (22-30) mmol/L Anion Gap (5-15) MEQ/L BUN (7-17) mg/dL Creatinine (0.52-1.04) mg/dL Estimated GFR ML/MIN Glucose (74-106) mg/dL Calcium (8.4-10.2) mg/dL Total Bilirubin (0.2-1.3) mg/dL AST (14-36) U/L ALT (0-35) U/L Alkaline Phosphatase (38-126) U/L Troponin I 0.045 H* (0.000-0.034) ng/mL NT-Pro-B Natriuret Pep (<300) pg/mL Serum Total Protein (6.3-8.2) g/dL Albumin (3.5-5.0) g/dL Prealbumin (17.6-36.0) mg/dL 02/07/23 02/07/23 02/07/23 Range/Units 03:30 03:30 08:50 WBC (4.0-10.5) x10^3/uL RBC (4.1-5.4) x10^6/uL Hgb (12.0-16.0) g/dL Hct (35-47) % MCV (78-100) fL MCH (26-32) pg MCHC (32-36) g/dL RDW (11.5-14.0) % Plt Count (150-450) x10^3/uL MPV (7.5-11.0) fL Gran % (36.0-66.0) % Immature Gran % (Auto) (0.00-0.4) % Nucleat RBC Rel Count (0.00-0.1) % Eos # (Auto) (0-0.5) x10^3/uL Immature Gran # (Auto) (0.00-0.03) x10^3u/L Absolute Lymphs (auto) (1.0-4.6) x10^3/uL Absolute Monos (auto) (0.0-1.3) x10^3/uL Absolute Nucleated RBC (0.00-0.01) x10^3u/L Lymphocytes % (24.0-44.0) % Monocytes % (0.0-12.0) % Eosinophils % (0.00-5.0) % Basophils % (0.0-0.4) % Absolute Granulocytes (1.4-6.9) x10^3/uL Basophils # (0-0.4) x10^3/uL Puncture Site LEFT BRACHIAL pCO2 89 H* pO2 76 Base Excess 14.6 H O2 Saturation 95.3 ABG pH 7.31 L ABG HCO3 44.8 H* ABG O2 Sat (Measured) 97.4 ABG O2 Content Shabbir Test NOT APPLICABLE A-a Gradient 241 a/A Ratio 0.24 Hemoglobin 12.4 Carboxyhemoglobin 1.5 Methemoglobin 0.7 L Potassium 3.8 3.9 Temperature 37.0 POC O2 Flow Rate 60 Vent Mode AVAPS Vent Rate Tidal Volume 500 PEEP 7.0 Pressure Support Inspiratory BiPAP Expiratory BiPAP Sodium 140 (137-145) mmol/L Chloride 92 L (98-107) mmol/L Carbon Dioxide 43 H (22-30) mmol/L Anion Gap 8.8 (5-15) MEQ/L BUN 10 (7-17) mg/dL Creatinine 0.62 (0.52-1.04) mg/dL Estimated GFR 101.3 ML/MIN Glucose 118 H (74-106) mg/dL Calcium 8.5 (8.4-10.2) mg/dL Total Bilirubin 0.40 (0.2-1.3) mg/dL AST 31 (14-36) U/L ALT 25 (0-35) U/L Alkaline Phosphatase 101 (38-126) U/L Troponin I (0.000-0.034) ng/mL NT-Pro-B Natriuret Pep 1550 (<300) pg/mL Serum Total Protein 7.1 (6.3-8.2) g/dL Albumin 3.8 (3.5-5.0) g/dL Prealbumin 18.02 (17.6-36.0) mg/dL Micro Results-Entire Visit: Microbiology 02/06/23 19:46 Urine Culture - Preliminary Urine, Indwelling Catheter NO GROWTH TO DATE - Radiology Exams Ordered Rad Exams-Entire Visit: Radiology Procedures Category Date Time Status CHEST 1 VIEW (PORTABLE) Stat Exams 02/06/23 18:14 Completed CHEST WITH CONTRAST [CT] Stat Exams 02/06/23 20:44 Completed HEAD WITHOUT CONTRAST [CT] Stat Exams 02/06/23 22:15 Completed - Procedures and Test Procedures and Tests throughout Hospitalization: Therapy Orders & Screens 02/07/23 00:15 BiPap/CPAP ROUTINE Comment: Respiratory Therapy Assessment DAILY Comment: 02/07/23 00:30 EKG REPEAT IN AM Comment: Respiratory Therapy Consult ONCE Comment: Reason For Exam: 02/07/23 03:45 Oxygen Nasal Cannula 3 lpm Comment: Diagnosis: shortness of breath <CLARISSE REY - Last Filed: 02/07/23 20:48> Discharge Exam General Appearance: no apparent distress, alert Neurologic Exam: alert, oriented x 3, cooperative, normal mood/affect, nml cerebellar function, sensation nml, No motor deficits Eye Exam: PERRL, EOMI, eyes nml inspection Ears, Nose, Throat Exam: normal ENT inspection, pharynx normal, moist mucous membranes Neck Exam: normal inspection, non-tender, supple, full range of motion Respiratory Exam: respiratory distress, crackles/rales Cardiovascular Exam: regular rate/rhythm, normal heart sounds Gastrointestinal/Abdomen Exam: soft, No tenderness, No mass Pelvic Exam: deferred Rectal Exam: deferred Back Exam: normal inspection, normal range of motion, No CVA tenderness, No vertebral tenderness Extremity Exam: normal inspection, normal range of motion Skin Exam: normal color, warm, dry <CLAUDIA SHOOK - Last Filed: 02/07/23 11:19> Final Diagnosis/Problem List - Final Discharge Diagnosis/Problem (1) Influenza A H1N1 infection Status: Acute Assessment & Plan: - tamiflu started - pt hypoxic - Chest XR and Chest CT negative - On AVAPS 60% O2 - NS @ 75ml/hr - Tylenol for fever and pain Code(s): J10.1 - FLU DUE TO OTH IDENT INFLUENZA VIRUS W OTH RESP MANIFEST (2) Hypoxia Status: Acute Assessment & Plan: - on AVAPS today, ABG improved - RR 35 - needs to tx to higher level of care- possible need for intubation Code(s): R09.02 - HYPOXEMIA (3) History of COPD Status: Acute Assessment & Plan: - Stopped smoking 3 months ago - Steroids, duonebs - on AVAPS today, ABG improved - rapid resp rate Code(s): Z87.09 - PERSONAL HISTORY OF OTHER DISEASES OF THE RESPIRATORY SYSTEM (4) Elevated troponin I level Status: Acute Assessment & Plan: - 1st Trop 0.012, 2nd 0.018, 3rd 0.045 - may be demand ischemia - tx to [facility] - denies CP Code(s): R79.89 - OTHER SPECIFIED ABNORMAL FINDINGS OF BLOOD CHEMISTRY (5) Anxiety Status: Acute Assessment & Plan: - ativan, xanax - chronic hx Code(s): F41.9 - ANXIETY DISORDER, UNSPECIFIED (6) Confusion Status: Acute Assessment & Plan: - acute - 2:2 Flu A and hypoxia Code(s): R41.0 - DISORIENTATION, UNSPECIFIED (7) HTN (hypertension) Status: Acute Assessment & Plan: - stable -hydralizine PRN Code(s): I10 - ESSENTIAL (PRIMARY) HYPERTENSION (8) Generalized weakness Status: Resolved Assessment & Plan: -2:2 flu A and hypoxia - acute Code(s): R53.1 - WEAKNESS <CLAUDIA SHOOK - Last Filed: 02/07/23 11:19> - Discharge Discharge Date: 02/07/23 <CLAUDIA SHOOK - Last Filed: 02/07/23 11:19> <CLARISSE REY - Last Filed: 02/07/23 20:48> - Discharge Disposition: DC TO [facility] Condition: Serious Prescriptions: Continue Tizanidine HCl 4 mg [Zanaflex 4 MG] 4 mg PO Q8HPRN PRN PRN Reason: Muscle Spasms Pregabalin [Lyrica] 300 mg PO BID Duloxetine HCl 30 mg [Cymbalta 30 MG Capsule] 120 mg PO DAILY ARIPiprazole [Aripiprazole] 10 mg PO HS Trazodone HCl 50 mg [Desyrel 50 mg] 200 mg PO HS Carvedilol 12.5 mg [Coreg 12.5 mg] 12.5 mg PO BID ALPRAZolam 0.25 MG [xanAX 0.25 MG] 0.25 mg PO TID Levothyroxine Sodium [Euthyrox] 150 tab PO 0600 Potassium Chloride 10 meq PO BID Benazepril HCl [Lotensin] 40 mg PO DAILY Cyanocobalamin (Vitamin B-12) [Vitamin B-12] 1,000 mcg SL DAILY #30 tablet Cholecalciferol (Vitamin D3) [Vitamin D] 50,000 unit PO UD Albuterol 2.5 mg/3 ml Neb [Proventil 2.5 mg/3 ml Neb] 2.5 mg IH Q6H PRN PRN PRN Reason: Shortness Of Breath Aspirin EC 325 mg [Ecotrin 325 MG] 325 mg PO DAILY tablet Hydrocodone/Acetaminophen [Hydrocodone-Acetamin 10-325 mg] 1 ea PO Q4HPRN PRN PRN Reason: Pain And/Or Fever Atorvastatin Calcium 40 mg PO DAILY Carbamazepine 200 mg [Tegretol 200 MG] 200 mg PO TID@0800,1200,1600 Nicotine 14 mg [Nicoderm Cq 14 mg] 14 mg TD DAILY Follow up with: KADEN SCHAFER [employer] [Primary Care Provider] - JAMIE Encounter - JAMIE Encounter Attestation JAMIE Encounter Attestation: "IhavepersonallyseenandexaminedUADOLFO,TUCKER Rosa andhavediscussed pertinent aspects of their care with Claudia Shook and agree with the history, physical exam (any modifications based on my personal exam will be noted below), assessment, and plan as outlined in original note. Please see immediately below for my summary of findings and additional assessment and plan along with any meaningful corrections/explanations to the Subjective/Objective portions of the JAMIE note will be noted." My portion of the encounter took place via telemedicine. -Patient lethargic, required ativan and xanax due to agitation associated with respiratory failure while on AVAPS. Patient would benefit from intubation given worsening mental status and lethargy. Sign out given to Dr. Medrano at [facility]. <CLARISSE REY - Last Filed: 02/07/23 20:48>
[2023-02-07] MEDS ORDERED: Ativan 2 MG/1 ML VIAL IV ONE ×2 (12:08→13:18)
[2023-02-07 16:04] VITALS: BP 158/88; PULSE 89; RESP 20; TEMP 100; O2SAT 97
== END 2023-02-07 16:55 | disposition home or self-care (01) | DRG 194 ==
LOC: ED 17:30 → ICU 23:40
PROVIDERS: ADMIT Internal Medicine Nephrology; ATTEND Internal Medicine Nephrology
DX: J10.1 Influenza due to other identified influenza virus with other respiratory manifestations (principal); E87.29 Other acidosis; R09.02 Hypoxemia; R79.89 Other specified abnormal findings of blood chemistry; F41.9 Anxiety disorder, unspecified; R41.0 Disorientation, unspecified; I10 Essential (primary) hypertension; R53.1 Weakness; E78.5 Hyperlipidemia, unspecified; Z87.09 Personal history of other diseases of the respiratory system; Z79.899 Other long term (current) drug therapy; Z20.828 Contact with and (suspected) exposure to other viral communicable diseases; Z99.81 Dependence on supplemental oxygen; Z87.891 Personal history of nicotine dependence
CPT/HCPCS: 0241U; 36000; 36415; 36600; 51702; 70450; 71045; 71260; 80053; 81001; 82375; 82803; 83605; 83880; 84134; 84484; 85025; 85379; 85610; 87040; 87086; 93005; 93041; 94002; 94640; 94760; 96374; 99285; 99291; J0360; J2060; J2920; Q3014; A9270-GY

== ENCOUNTER 2023-07-29 17:33 | Observation (INO) | payer MEDICARE ==
--- NOTE | 2023-07-29 18:01 | ERPHSYRPT ---
- History of Present Illness Source: patient Exam Limitations: clinical condition Patient Subjective Stated Complaint: PT HERE FOR INCREASE SOB TODAY, PT WAS AT HOUSE TODAY AND THOUGHT SHE WAS SLIGHTLY CONFUSED AND INCREASE SOB, COUGH, NO FEVER Triage Nursing Assessment: PT ALERT, ARRIVED PER EMS. RESP EASY AT REST, SOB WITH EXCERTION, HAS DRY COUGH, CHEST WITH CRACKLES AND WHEEZES,HAS OCC JERKING MOTIONS,O2 4 L NC , NO EDEMA NOTED Timing/Duration: today Severity: mild Modifying Factors: Improves With: nothing Hx Tetanus, Diphtheria Vaccination/Date Given: No Hx Influenza Vaccination/Date Given: No Hx Pneumococcal Vaccination/Date Given: No Immunizations Up to Date: Yes <FATEMEH CURTIS - Last Filed: 07/29/23 19:20> <TUTU COTTO - Last Filed: 07/29/23 21:25> - History of Present Illness Time Seen by Provider: 07/29/23 17:55 Allergies/Adverse Reactions: ceftriaxone Allergy (Verified 07/29/23 17:36) Home Medications: ARIPiprazole [Aripiprazole] 10 mg PO HS 01/11/20 [History] Duloxetine HCl 30 mg [Cymbalta 30 MG Capsule] 120 mg PO DAILY 01/11/20 [History] Pregabalin [Lyrica] 300 mg PO BID 01/11/20 [History] Tizanidine HCl 4 mg [Zanaflex 4 MG] 4 mg PO Q8HPRN PRN 01/11/20 [History] Trazodone HCl 50 mg [Desyrel 50 mg] 200 mg PO HS 06/30/20 [History] ALPRAZolam 0.25 MG [xanAX 0.25 MG] 0.25 mg PO TID 03/06/21 [History] Carvedilol 12.5 mg [Coreg 12.5 mg] 12.5 mg PO BID 03/06/21 [History] Levothyroxine Sodium [Euthyrox] 150 tab PO 0600 07/04/21 [History] Potassium Chloride 10 meq PO BID 08/28/21 [History] Benazepril HCl [Lotensin] 40 mg PO DAILY 09/12/21 [History] Albuterol 2.5 mg/3 ml Neb [Proventil 2.5 mg/3 ml Neb] 2.5 mg IH Q6H PRN PRN 07/08/22 [History] Cholecalciferol (Vitamin D3) [Vitamin D] 50,000 unit PO UD 07/08/22 [History] Atorvastatin Calcium 40 mg PO DAILY 10/05/22 [History] Hydrocodone/Acetaminophen [Hydrocodone-Acetamin 10-325 mg] 1 ea PO Q4HPRN PRN 10/05/22 [History] Carbamazepine 200 mg [Tegretol 200 MG] 200 mg PO TID@0800,1200,1600 02/07/23 [History] Nicotine 14 mg [Nicoderm Cq 14 mg] 14 mg TD DAILY 02/07/23 [History] Travel Risk - International Travel Have you traveled outside of the country in past 3 weeks: No - Emerging Infectious Disease Are you exhibiting symptoms associated with any current EIDs: No <FATEMEH CURTIS - Last Filed: 07/29/23 19:20> - Review of Systems Eyes: No Symptoms Ears, Nose, & Throat: No Symptoms Respiratory: Cough, Dyspnea, Dyspnea on Exertion (THORPE), Wheezing Cardiac: No Symptoms Abdominal/Gastrointestinal: No Symptoms Genitourinary Symptoms: No Symptoms Musculoskeletal: No Symptoms Skin: No Symptoms Neurological: No Symptoms Psychological: No Symptoms <FATEMEH CURTIS - Last Filed: 07/29/23 19:20> - Past Medical History Pertinent Past Medical History: Yes Neurological History: No Pertinent History ENT History: Cataracts Cardiac History: High Cholesterol, Hypertension Respiratory History: COPD, Emphysema Endocrine Medical History: Hypoglycemia Musculoskeletal History: No Pertinent History GI Medical History: No Pertinent History History: No Pertinent History Psycho-Social History: Anxiety, Depression Female Reproductive Disorders: No Pertinent History Other Medical History: trigeminal neuralgia - Past Surgical History Past Surgical History: Yes Neuro Surgical History: No Pertinent History Cardiac: No Pertinent History Respiratory: No Pertinent History Gastrointestinal: Appendectomy Genitourinary: No Pertinent History Musculoskeletal: Orthopedic Surgery Female Surgical History: No Pertinent History Other Surgical History: elbow surgery. skin cancer removed. right foot surgery - 12/27/21 - Social History Smoking Status: Former smoker How long have you smoked: 25 Exposure to second hand smoke: No Drug Use: none Patient Lives Alone: Yes - Social Determinants of Health Will the patient participate in the screening: Declined to provide <FATEMEH CURTIS - Last Filed: 07/29/23 19:20> - Physical Exam General Appearance: mild distress Eye Exam: PERRL/EOMI Ears, Nose, Throat Exam: normal ENT inspection Respiratory Exam: diminished breath sounds, rhonchi, wheezing Cardiovascular Exam: other (mild tachycardia) Gastrointestinal/Abdomen Exam: soft, normal bowel sounds Extremity Exam: other (chronic venous stasis changes noted to the lower extremeties) SpO2: 96 <FATEMEH CURTIS - Last Filed: 07/29/23 19:20> - Nursing Vital Signs Nursing Vital Signs: Initial Vital Signs Temperature 97.0 F 07/29/23 17:36 Pulse Rate 59 L 07/29/23 17:36 Respiratory Rate 24 07/29/23 17:36 Blood Pressure 104/71 07/29/23 17:36 O2 Sat by Pulse Oximetry 96 07/29/23 17:36 Pain Scale Pain Intensity 0 Ordered Tests: Active Orders 24 hr Category Date Time Status CHEST 1 VIEW (PORTABLE) Stat Exams 07/29/23 18:00 Taken ABG [ARTERIAL BLOOD GASES] Routine Lab 07/29/23 20:30 Completed ABG [ARTERIAL BLOOD GASES] Stat Lab 07/29/23 19:00 Completed BNPII [NT PRO BNPII] Stat Lab 07/29/23 Completed CBC W DIFF Stat Lab 07/29/23 18:14 Completed CMP Stat Lab 07/29/23 18:14 Completed TROPONIN Q4H Lab 07/29/23 20:15 Completed Medication Summary Discontinued Medications Generic Name Dose Route Start Last Admin Trade Name Freq PRN Reason Stop Dose Admin Albuterol/Ipratropium 3 ml 07/29/23 17:58 07/29/23 18:11 Ipratropium/Albuterol Sulfate 3 Ml Ampul.Neb 07/29/23 17:59 3 ml STAT ONE Administration Albuterol/Ipratropium 3 ml 07/29/23 17:59 07/29/23 19:00 Ipratropium/Albuterol Sulfate 3 Ml Ampul.Neb 07/29/23 18:00 3 ml STAT ONE Administration Albuterol/Ipratropium Confirm 07/29/23 18:10 Ipratropium/Albuterol Sulfate 3 Ml Ampul.Neb Administered 07/29/23 18:11 Dose 3 ml IH .STK-MED ONE Albuterol/Ipratropium Confirm 07/29/23 18:54 Ipratropium/Albuterol Sulfate 3 Ml Ampul.Neb Administered 07/29/23 18:55 Dose 3 ml IH .STK-MED ONE Lorazepam 1 mg 07/29/23 19:39 07/29/23 21:08 Lorazepam 2 Mg/1 Ml 2 Mg Vial IV 07/29/23 19:40 1 mg STAT ONE Administration Lorazepam Confirm 07/29/23 21:06 Lorazepam 2 Mg/1 Ml 2 Mg Vial Administered 07/29/23 21:07 Dose 2 mg .ROUTE .STK-MED ONE Lab/Rad Data: Laboratory Result Diagrams 07/29/23 18:14 07/29/23 18:14 Laboratory Results 07/29/23 07/29/23 07/29/23 Range/Units Unknown 20:30 20:15 WBC (3.98-10.04) x10^3/uL RBC (3.93-5.22) x10^6/uL Hgb (11.2-15.7) g/dL Hct (34.1-44.9) % MCV (79.4-94.8) fL MCH (25.6-32.2) pg MCHC (32.2-35.5) g/dL RDW (11.7-14.4) % Plt Count (182-369) x10^3/uL MPV (9.4-12.3) fL Gran % (34.0-71.1) % Immature Gran % (Auto) (0.001-0.429) % Nucleat RBC Rel Count (0.00-0.2) % Eos # (Auto) (0.04-0.36) x10^3/uL Immature Gran # (Auto) (0.001-0.031) x10^3u/L Absolute Lymphs (auto) (1.18-3.74) x10^3/uL Absolute Monos (auto) (0.24-0.86) x10^3/uL Absolute Nucleated RBC (0.00-0.012) x10^3u/L Lymphocytes % (19.3-51.7) % Monocytes % (4.7-12.5) % Eosinophils % (0.7-5.8) % Basophils % (0.1-1.2) % Absolute Granulocytes (1.56-6.13) x10^3/uL Basophils # (0.01-0.08) x10^3/uL Puncture Site LEFT BRACHIAL pCO2 82 H* (35-45) mmHg pO2 71 L (75-100) mmHg Base Excess 18.9 H (-2.0-2.0) O2 Saturation 93.1 L (94-100) g/dF ABG pH 7.37 (7.35-7.45) ABG HCO3 47.4 H* (22-28) ABG O2 Sat (Measured) 95.6 (95-100) % Shabbir Test NOT APPLICABLE A-a Gradient 83 a/A Ratio 0.46 Hemoglobin 9.9 Carboxyhemoglobin 1.9 (0.0-6.9) % THgb Methemoglobin 0.7 L (1.4-1.5) % Temperature 37.0 C POC O2 Flow Rate 36 % Sodium (135-145) mmol/L Potassium 4.3 (3.5-5.1) mmol/L Chloride (98-107) mmol/L Carbon Dioxide (22-30) mmol/L Anion Gap (5-15) MEQ/L BUN (7-17) mg/dL Creatinine (0.52-1.04) mg/dL Estimated GFR ML/MIN Glucose (74-106) mg/dL Calcium (8.4-10.2) mg/dL Total Bilirubin (0.2-1.3) mg/dL AST (14-36) U/L ALT (0-35) U/L Alkaline Phosphatase (38-126) U/L Troponin I < 0.012 (0.000-0.033) ng/mL NT-Pro-B Natriuret Pep 227 (<300) pg/mL Serum Total Protein (6.3-8.2) g/dL Albumin (3.5-5.0) g/dL 07/29/23 07/29/23 07/29/23 Range/Units 19:00 18:14 18:14 WBC 12.3 H (3.98-10.04) x10^3/uL RBC 3.68 L (3.93-5.22) x10^6/uL Hgb 10.0 L (11.2-15.7) g/dL Hct 33.3 L (34.1-44.9) % MCV 90.5 (79.4-94.8) fL MCH 27.2 (25.6-32.2) pg MCHC 30.0 L (32.2-35.5) g/dL RDW 16.6 H (11.7-14.4) % Plt Count 287 (182-369) x10^3/uL MPV 9.2 L (9.4-12.3) fL Gran % 73.5 H (34.0-71.1) % Immature Gran % (Auto) 1.5 H (0.001-0.429) % Nucleat RBC Rel Count 0.0 (0.00-0.2) % Eos # (Auto) 0.20 (0.04-0.36) x10^3/uL Immature Gran # (Auto) 0.18 H (0.001-0.031) x10^3u/L Absolute Lymphs (auto) 1.94 (1.18-3.74) x10^3/uL Absolute Monos (auto) 0.86 (0.24-0.86) x10^3/uL Absolute Nucleated RBC 0.00 (0.00-0.012) x10^3u/L Lymphocytes % 15.8 L (19.3-51.7) % Monocytes % 7.0 (4.7-12.5) % Eosinophils % 1.6 (0.7-5.8) % Basophils % 0.6 (0.1-1.2) % Absolute Granulocytes 9.02 H (1.56-6.13) x10^3/uL Basophils # 0.07 (0.01-0.08) x10^3/uL Puncture Site LEFT RADIAL pCO2 96 H* (35-45) mmHg pO2 133 H* (75-100) mmHg Base Excess 20.7 H (-2.0-2.0) O2 Saturation 96.9 (94-100) g/dF ABG pH 7.33 L (7.35-7.45) ABG HCO3 50.6 H* (22-28) ABG O2 Sat (Measured) 99.3 (95-100) % Shabbir Test YES A-a Gradient 104 a/A Ratio 0.56 Hemoglobin 10.3 Carboxyhemoglobin 1.7 (0.0-6.9) % THgb Methemoglobin 0.6 L (1.4-1.5) % Temperature 37.0 C POC O2 Flow Rate 50 % Sodium 139 (135-145) mmol/L Potassium 4.2 3.8 (3.5-5.1) mmol/L Chloride 92 L (98-107) mmol/L Carbon Dioxide 40 H (22-30) mmol/L Anion Gap 10 (5-15) MEQ/L BUN 12 (7-17) mg/dL Creatinine 1.26 H (0.52-1.04) mg/dL Estimated GFR 48.3 ML/MIN Glucose 123 H (74-106) mg/dL Calcium 8.5 (8.4-10.2) mg/dL Total Bilirubin 0.40 (0.2-1.3) mg/dL AST 22 (14-36) U/L ALT 18 (0-35) U/L Alkaline Phosphatase 98 (38-126) U/L Troponin I (0.000-0.033) ng/mL NT-Pro-B Natriuret Pep (<300) pg/mL Serum Total Protein 7.5 (6.3-8.2) g/dL Albumin 3.8 (3.5-5.0) g/dL <FATEMEH CURTIS - Last Filed: 07/29/23 19:20> - Progress Counseled pt/family regarding: lab results, diagnosis, need for follow-up, rad results <TUTU COTTO - Last Filed: 07/29/23 21:25> - Progress Progress Note: Care of this patient is transferred to Dr. Cotto at 7:20 PM labs chest x-ray and ABG are pending patient will need to be admitted to the floor due to her history of COPD exacerbation and hypoxia patient was informed of the plan and is agreeable and has no further questions 07/29/23 19:20 (FATEMEH CURTIS) 07/29/23 21:19 I spoke with telehospitalist Dr. Almeida. I reviewed the patient presenting complaint, history present illness, physical findings on examination, radiographic, laboratory and arterial blood gas results with her. We will place this patient in observation and telemetry. Will repeat labs in the morning including arterial blood gas 07/29/23 21:20 I interpreted the patient's laboratory data results. Patient does have hypercarbia. She has COPD exacerbation as well. I interpreted the patient's preliminary chest x-ray report. There is no evidence of any acute findings on radiographic studies. (TUTU COTTO) Medical Desision Making - Independent Historian Additional History obtained from: Calendering Supervisor/EMT - Discussion of managment Care discussed with:: hospitalist Reviewed:: Test results, Need for additional workup Agreed on:: place in obs Will see patient: in hospital - Diagnostic Testing Diagnostic test were ordered, analyzed, and reviewed by me: Yes Radiological Interpretation: Interpreted by me, Reviewed by me - Risk of complications The pt has a high risk of morbidity or mortality based on: Decision regarding hospitilization or escalation of hosp level of care <TUTU COTTO - Last Filed: 07/29/23 21:25> - Departure Departure Disposition: Observation Critical Care Time: Yes Critical Care Time(excluding separately billable procedures): Critical 30-74 mins <FATEMEH CURTIS - Last Filed: 07/29/23 19:20> - Departure Departure Disposition: Observation Critical Care Time: Yes Critical Care Time(excluding separately billable procedures): Critical 30-74 mins (40 minutes) <TUTU COTTO - Last Filed: 07/29/23 21:25> - Departure Clinical Impression: COPD exacerbation, Hypoxia, Altered mental status, unspecified, Hypercarbia Condition: Stable Referrals: KADEN SCHAFER NP [NON-STAFF PHY W/O PRIVILEGES] - Follow up/PCP as directed Instructions: Chronic Obstructive Pulmonary Disease
[2023-07-29] MEDS ORDERED: DUONEB 0.5-3 MG/3 ml Neb IH ONE ×2 (18:10→18:54)
[2023-07-29] MEDS: DUONEB 0.5-3 MG/3 ml Neb IH ONE ×2 (18:11→19:00)
[2023-07-29 18:17] LABS: Absolute Neutrophil Ct (ANC) 9.02 x10^3/uL (1.56-6.13); BASOPHIL % 0.6 % (0.1-1.2); Basophil (Absolute #) 0.07 x10^3/uL (0.01-0.08); Eosinophil % 1.6 % (0.7-5.8); Hematocrit 33.3 % (34.1-44.9); IMMATURE GRAN # 0.18 x10^3u/L (0.001-0.031); IMMATURE GRAN % 1.5 % (0.001-0.429); Lymphocyte (Absolute #) 1.94 x10^3/uL (1.18-3.74); Lymphocytes % 15.8 % (19.3-51.7); Mean Cell Volume 90.5 fL (79.4-94.8); Mean Corpuscular Hemoglobin 27.2 pg (25.6-32.2); Mean Platelet Volume 9.2 fL (9.4-12.3); Monocyte (Absolute #) 0.86 x10^3/uL (0.24-0.86); Neutrophil % 73.5 % (34.0-71.1); Platelet Count 287 x10^3/uL (182-369); Red Blood Count 3.68 x10^6/uL (3.93-5.22); Red Cell Distribution Width 16.6 % (11.7-14.4); White Blood Count 12.3 x10^3/uL (3.98-10.04)
[2023-07-29 18:33] LABS: ALBUMIN 3.8 g/dL (3.5-5.0); BILIRUBIN,TOTAL 0.4 mg/dL (0.2-1.3); Calcium 8.5 mg/dL (8.4-10.2); Creatinine 1 1.26 mg/dL (0.52-1.04); EST GLOMERULAR FILTRATION RATE 48.3 ML/MIN; Potassium 3.8 mmol/L (3.5-5.1); Total Protein 7.5 g/dL (6.3-8.2)
[2023-07-29 19:21] LABS: A-aADO2 104; ABG HEMOGLOBIN 10.3; ABG POTASSIUM 4.2 (3.5-5.1); ARTERIAL BLD GAS O2 SATURATION 99.3 % (95-100); ARTERIAL BLOOD GAS BASE EXCESS 20.7 (-2.0-2.0); ARTERIAL BLOOD GAS FIO2 50 %; ARTERIAL BLOOD GAS PCO2 96 mmHg (35-45); ARTERIAL BLOOD GAS PO2 133 mmHg (75-100); ARTERIAL BLOOD GAS pH 7.33 (7.35-7.45); CARBOXYHEMOGLOBIN 1.7 % THgb (0.0-6.9); HCO3- 50.6 (22-28); HGB O2 SAT 96.9 g/dF (94-100); Methhemoglobin 0.6 % (1.4-1.5); paO2 pAO1 0.56
[2023-07-29 20:36] LABS: A-aADO2 83; ABG HEMOGLOBIN 9.9; ABG POTASSIUM 4.3 (3.5-5.1); ARTERIAL BLD GAS O2 SATURATION 95.6 % (95-100); ARTERIAL BLOOD GAS BASE EXCESS 18.9 (-2.0-2.0); ARTERIAL BLOOD GAS FIO2 36 %; ARTERIAL BLOOD GAS PO2 71 mmHg (75-100); ARTERIAL BLOOD GAS pH 7.37 (7.35-7.45); CARBOXYHEMOGLOBIN 1.9 % THgb (0.0-6.9); HCO3- 47.4 (22-28); HGB O2 SAT 93.1 g/dF (94-100); Methhemoglobin 0.7 % (1.4-1.5); paO2 pAO1 0.46
[2023-07-29 20:37] LABS: ARTERIAL BLOOD GAS PCO2 82 mmHg (35-45)
[2023-07-29 20:38] LABS: ABG SITE LEFT BRACHIAL
[2023-07-29 20:40] LABS: ABG SITE LEFT RADIAL
[2023-07-29 20:41] LABS: ALLEN TEST OK? YES
[2023-07-29] MEDS ORDERED: Ativan 2 MG/1 ML VIAL ONE (21:06)
[2023-07-29] MEDS: Ativan 2 MG/1 ML VIAL IV ONE (21:08)
[2023-07-29] MEDS ORDERED: TYLENOL 325 MG PO PRN (22:34)
[2023-07-29] MEDS ORDERED: Zofran 4 MG/2 ML VIAL IV PRN (22:34)
--- NOTE | 2023-07-29 23:29 | PCM.HP ---
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 in ER her V/S were stable, Bp running towards softer side, lab remarkable for wbc > 12, ABG with Pc02 > 90, PH 7.33, pt was saturating > 90 % on 4 liters, she was placed on BIPAP, repeat ABG showed improvement in Pco2, X- ray unremarkable. Pt admitted for Confusion/COPD excerbation and hypercapnoic resp failure. - Review of Systems All Other Systems: Reviewed and Negative (14 systems reviewed and marked ve except mentioned in [place]) Medications & Allergies Home Medications: Home Medication List ARIPiprazole [Aripiprazole] 10 mg PO HS 01/11/20 [History Confirmed 07/29/23] Duloxetine HCl 30 mg [Cymbalta 30 MG Capsule] 120 mg PO DAILY 01/11/20 [History Confirmed 07/29/23] Pregabalin [Lyrica] 300 mg PO BID 01/11/20 [History Confirmed 07/29/23] Tizanidine HCl 4 mg [Zanaflex 4 MG] 4 mg PO Q8HPRN PRN 01/11/20 [History Confirmed 07/29/23] Trazodone HCl 50 mg [Desyrel 50 mg] 200 mg PO HS 06/30/20 [History Confirmed 07/29/23] ALPRAZolam 0.25 MG [xanAX 0.25 MG] 0.25 mg PO TID 03/06/21 [History Confirmed 07/29/23] Carvedilol 12.5 mg [Coreg 12.5 mg] 12.5 mg PO BID 03/06/21 [History Confirmed 07/29/23] Levothyroxine Sodium [Euthyrox] 150 tab PO 0600 07/04/21 [History Confirmed 07/29/23] Potassium Chloride 10 meq PO BID 08/28/21 [History Confirmed 07/29/23] Benazepril HCl [Lotensin] 40 mg PO DAILY 09/12/21 [History Confirmed 07/29/23] Cyanocobalamin (Vitamin B-12) [Vitamin B-12] 1,000 mcg SL DAILY #30 tablet 10/07/21 [Rx Confirmed 07/29/23] Albuterol 2.5 mg/3 ml Neb [Proventil 2.5 mg/3 ml Neb] 2.5 mg IH Q6H PRN PRN 07/08/22 [History Confirmed 07/29/23] Cholecalciferol (Vitamin D3) [Vitamin D] 50,000 unit PO UD 07/08/22 [Histor y Confirmed 07/29/23] Aspirin EC 325 mg [Ecotrin 325 MG] 325 mg PO DAILY tablet 07/11/22 [Rx Confirmed 07/29/23] Atorvastatin Calcium 40 mg PO DAILY 10/05/22 [History Confirmed 07/29/23] Hydrocodone/Acetaminophen [Hydrocodone-Acetamin 10-325 mg] 1 ea PO Q4HPRN PRN 10/05/22 [History Confirmed 07/29/23] Carbamazepine 200 mg [Tegretol 200 MG] 200 mg PO TID@0800,1200,1600 02/07/23 [History Confirmed 07/29/23] Nicotine 14 mg [Nicoderm Cq 14 mg] 14 mg TD DAILY 02/07/23 [History Confirmed 07/29/23] Allergies/Adverse Reactions: Allergies Allergy/AdvReac Type Severity Reaction Status Date / Time ceftriaxone Allergy Verified 07/29/23 17:36 - Past Medical History Past Medical History: Yes Neurological History: No Pertinent History ENT History: Cataracts Cardiac History: High Cholesterol, Hypertension Respiratory History: COPD, Emphysema Endocrine Medical History: Hypoglycemia Musculoskelatal History: No Pertinent History GI Medical History: No Pertinent History History: No Pertinent History Pyscho-Social History: Anxiety, Depression Reproductive Disorders: No Pertinent History Comment: trigeminal neuralgia - Past Surgical History Past Surgical History: Yes Neuro Surgical History: No Pertinent History Cardiac History: No Pertinent History Respiratory Surgery: No Pertinent History GI Surgical History: Appendectomy Genitourinary Surgical Hx: No Pertinent History Musculskeletal Surgical Hx: Orthopedic Surgery Female Surgical History: No Pertinent History Other Surgical History: elbow surgery. skin cancer removed. right foot surgery - 12/27/21 Family History: No family history pertaining to this admission reported. - Social History Smoking Status: Former smoker How long have you smoked: 25 Exposure to second hand smoke: No Alcohol: None Drug Use: none - Social Determinants of Health Will the patient participate in the screening: Declined to provide - Physical Exam Vital Signs: Vital Signs - 24 hr Temp Pulse Resp BP BP Pulse Ox 07/29/23 22:51 97.0 F 69 17 104/71 94 L 07/29/23 22:00 69 17 109/70 94 L 07/29/23 21:30 66 15 108/67 95 07/29/23 21:06 73 19 135/81 97 07/29/23 20:30 79 17 92/53 99 07/29/23 20:00 58 L 14 91/47 97 07/29/23 19:30 58 L 17 136/57 98 07/29/23 19:26 69 14 98 07/29/23 19:22 96 07/29/23 19:00 62 17 122/71 96 07/29/23 18:30 63 13 101/56 99 07/29/23 18:15 70 16 97 07/29/23 18:00 65 14 112/68 95 07/29/23 17:43 22 96 07/29/23 17:36 97.0 F 70 23 104/71 104/71 96 Additional Findings: HEENT Middle aged,Morbidly obese built in some resp distress on 4 liters oxygen at present NECK Supple,no thyromegaly, CVS S1+S2 + 0, no murmers RESP Bilateral equal air entry without Wheezes heard GIT Soft non tender,non distended Skin, No rah, no Bruises LEGS No Edema PSYCH Normal,mood, judgement and insight NEURO AOX3, no focal deficit 07/29/23 23:27 Results - Labs Lab/Micro Results: Lab Results-Last 24 Hours 07/29/23 07/29/23 07/29/23 Range/Units 18:14 18:14 19:00 WBC 12.3 H (3.98-10.04) x10^3/uL RBC 3.68 L (3.93-5.22) x10^6/uL Hgb 10.0 L (11.2-15.7) g/dL Hct 33.3 L (34.1-44.9) % MCV 90.5 (79.4-94.8) fL MCH 27.2 (25.6-32.2) pg MCHC 30.0 L (32.2-35.5) g/dL RDW 16.6 H (11.7-14.4) % Plt Count 287 (182-369) x10^3/uL MPV 9.2 L (9.4-12.3) fL Gran % 73.5 H (34.0-71.1) % Immature Gran % (Auto) 1.5 H (0.001-0.429) % Nucleat RBC Rel Count 0.0 (0.00-0.2) % Eos # (Auto) 0.20 (0.04-0.36) x10^3/uL Immature Gran # (Auto) 0.18 H (0.001-0.031) x10^3u/L Absolute Lymphs (auto) 1.94 (1.18-3.74) x10^3/uL Absolute Monos (auto) 0.86 (0.24-0.86) x10^3/uL Absolute Nucleated RBC 0.00 (0.00-0.012) x10^3u/L Lymphocytes % 15.8 L (19.3-51.7) % Monocytes % 7.0 (4.7-12.5) % Eosinophils % 1.6 (0.7-5.8) % Basophils % 0.6 (0.1-1.2) % Absolute Granulocytes 9.02 H (1.56-6.13) x10^3/uL Basophils # 0.07 (0.01-0.08) x10^3/uL Puncture Site LEFT RADIAL pCO2 96 H* (35-45) mmHg pO2 133 H* (75-100) mmHg Base Excess 20.7 H (-2.0-2.0) O2 Saturation 96.9 (94-100) g/dF ABG pH 7.33 L (7.35-7.45) ABG HCO3 50.6 H* (22-28) ABG O2 Sat (Measured) 99.3 (95-100) % Shabbir Test YES A-a Gradient 104 a/A Ratio 0.56 Hemoglobin 10.3 Carboxyhemoglobin 1.7 (0.0-6.9) % THgb Methemoglobin 0.6 L (1.4-1.5) % Temperature 37.0 C POC O2 Flow Rate 50 % Sodium 139 (135-145) mmol/L Potassium 3.8 4.2 (3.5-5.1) mmol/L Chloride 92 L (98-107) mmol/L Carbon Dioxide 40 H (22-30) mmol/L Anion Gap 10 (5-15) MEQ/L BUN 12 (7-17) mg/dL Creatinine 1.26 H (0.52-1.04) mg/dL Estimated GFR 48.3 ML/MIN Glucose 123 H (74-106) mg/dL Calcium 8.5 (8.4-10.2) mg/dL Total Bilirubin 0.40 (0.2-1.3) mg/dL AST 22 (14-36) U/L ALT 18 (0-35) U/L Alkaline Phosphatase 98 (38-126) U/L Troponin I (0.000-0.033) ng/mL NT-Pro-B Natriuret Pep (<300) pg/mL Serum Total Protein 7.5 (6.3-8.2) g/dL Albumin 3.8 (3.5-5.0) g/dL 07/29/23 07/29/23 07/29/23 Range/Units 20:15 20:30 Unknown WBC (3.98-10.04) x10^3/uL RBC (3.93-5.22) x10^6/uL Hgb (11.2-15.7) g/dL Hct (34.1-44.9) % MCV (79.4-94.8) fL MCH (25.6-32.2) pg MCHC (32.2-35.5) g/dL RDW (11.7-14.4) % Plt Count (182-369) x10^3/uL MPV (9.4-12.3) fL Gran % (34.0-71.1) % Immature Gran % (Auto) (0.001-0.429) % Nucleat RBC Rel Count (0.00-0.2) % Eos # (Auto) (0.04-0.36) x10^3/uL Immature Gran # (Auto) (0.001-0.031) x10^3u/L Absolute Lymphs (auto) (1.18-3.74) x10^3/uL Absolute Monos (auto) (0.24-0.86) x10^3/uL Absolute Nucleated RBC (0.00-0.012) x10^3u/L Lymphocytes % (19.3-51.7) % Monocytes % (4.7-12.5) % Eosinophils % (0.7-5.8) % Basophils % (0.1-1.2) % Absolute Granulocytes (1.56-6.13) x10^3/uL Basophils # (0.01-0.08) x10^3/uL Puncture Site LEFT BRACHIAL pCO2 82 H* (35-45) mmHg pO2 71 L (75-100) mmHg Base Excess 18.9 H (-2.0-2.0) O2 Saturation 93.1 L (94-100) g/dF ABG pH 7.37 (7.35-7.45) ABG HCO3 47.4 H* (22-28) ABG O2 Sat (Measured) 95.6 (95-100) % Shabbir Test NOT APPLICABLE A-a Gradient 83 a/A Ratio 0.46 Hemoglobin 9.9 Carboxyhemoglobin 1.9 (0.0-6.9) % THgb Methemoglobin 0.7 L (1.4-1.5) % Temperature 37.0 C POC O2 Flow Rate 36 % Sodium (135-145) mmol/L Potassium 4.3 (3.5-5.1) mmol/L Chloride (98-107) mmol/L Carbon Dioxide (22-30) mmol/L Anion Gap (5-15) MEQ/L BUN (7-17) mg/dL Creatinine (0.52-1.04) mg/dL Estimated GFR ML/MIN Glucose (74-106) mg/dL Calcium (8.4-10.2) mg/dL Total Bilirubin (0.2-1.3) mg/dL AST (14-36) U/L ALT (0-35) U/L Alkaline Phosphatase (38-126) U/L Troponin I < 0.012 (0.000-0.033) ng/mL NT-Pro-B Natriuret Pep 227 (<300) pg/mL Serum Total Protein (6.3-8.2) g/dL Albumin (3.5-5.0) g/dL - Radiology Impressions Radiology Exams & Impressions: Radiology Procedures Category Date Time Status CHEST 1 VIEW (PORTABLE) Stat Exams 07/29/23 18:00 Taken - Other Procedures and Tests Respiratory Therapy 07/29/23 22:34 EKG REPEAT IN AM Respiratory Therapy Consult ONCE 07/29/23 23:13 RT Screen per Nursing Assess ONCE Assessment/Plan (1) COPD exacerbation Current Visit: Yes Status: Acute Code(s): J44.1 - CHRONIC OBSTRUCTIVE PULMONARY DISEASE W (ACUTE) EXACERBATION (2) Anxiety Current Visit: No Status: Acute Code(s): F41.9 - ANXIETY DISORDER, UNSPECIFIED (3) Acute hypercapnic respiratory failure Current Visit: Yes Status: Acute Code(s): J96.02 - ACUTE RESPIRATORY FAILURE WITH HYPERCAPNIA (4) Obesity (BMI 30.0-34.9) Current Visit: Yes Status: Acute Code(s): E66.9 - OBESITY, UNSPECIFIED Telemedicine Encounter - Telemedicine Encounter Telemedicine Encounter: The entirety of this encounter was performed via Telemedicine" Acute Encephalopathy seems metabolic due to C02 retention Will avoid all kind of sedatives/Narcotics/sleep meds C/w BIPAP and check for imptovement of C02 Acute on chronic Hypercapnoic Resp Failure Due to underlying COPD excerbation/GUIDO Pt on 4 liters right now, at home she uses 3 liters/24 hours ABG showed markedly elevated PC02 but compensating well with preserved PH around 7.33 C/w BIPAp at night and will get repeat ABG in 4-6 hours Keep close monitoring Low threshold for decline Acute COPD exacerbation Will c/w Duonebs, Added Pulmicort 0.5 mg BID Started Solumedrol 40 mg iv every 8hrly Will start on AB for associated Bronchitis Encourage incentive spirometry Hypertension Bp running towards softe rside I will keep holdingh er lisinopril + coreg for now Anxiety/Mood disorder/Insomnia Will resume home meds including Klonopin, trazodone + abilify Hyperlipidemia Resumed Statins Obesity BMI > 33 Needs Exercise + dietary advise for weight reduction GUIDO Undiagnosed ,Pt seems to have GUIDO/OHS with chronic C02 retention resulting in multiple hospital visits Pt says she does not use any CPAP at home Needs to get sleep study as out pt after d/c DVT PPX Lovenox Code status Full D/c planning, Pending clinical stability I have reviewed pt labs, V/S and imaging in detail , all question/concerns addressed.Pt remained high risk for damage /decline to body function due to ongoing resp insufficiency and low threshold to decline.Time spent in are of this sick pt was > 40 min including FTF through televisit, chart review/coordination of care with pt, staff and custom decorating consultant
[2023-07-29] MEDS: Sodium Chloride 0.9% 1000 ML 1,000 ML IV SCH (23:31)
[2023-07-30] MEDS ORDERED: Zofran 4 MG/2 ML VIAL IV PRN (00:07)
[2023-07-30] MEDS ORDERED: DUONEB 0.5-3 MG/3 ml Neb IH PRN (00:07)
[2023-07-30 02:11] LABS: ADD URINE CULTURE? NO (NO); Appearance Cloudy (Clear); Bacteria None Seen /HPF (None Seen); Bilirubin Negative (Negative); Blood Negative (Negative); Epithelial Cells None Seen /HPF (None Seen); Glucose, Urine 100 mg/dL (Negative); Ketones Negative (Negative); Leukocyte Esterase Negative (Negative); Nitrite Negative (Negative); Protein,Urine Dip 30 (Negative); RBC 0-2 /HPF (0-5); Specific Gravity 1.015 (1.005-1.030); Urobilinogen 0.2 mg/dL (0.2); WBC 0-2 /HPF (0-5)
[2023-07-30 02:31] LABS: Absolute Neutrophil Ct (ANC) 10.18 x10^3/uL (1.56-6.13); BASOPHIL % 0.3 % (0.1-1.2); Basophil (Absolute #) 0.03 x10^3/uL (0.01-0.08); Eosinophil (Absolute #) 0 x10^3/uL (0.04-0.36); Hemoglobin 9.6 g/dL (11.2-15.7); IMMATURE GRAN # 0.21 x10^3u/L (0.001-0.031); IMMATURE GRAN % 1.8 % (0.001-0.429); Lymphocyte (Absolute #) 0.88 x10^3/uL (1.18-3.74); Lymphocytes % 7.7 % (19.3-51.7); Mean Cell Volume 90.9 fL (79.4-94.8); Mean Corpuscular Hemoglobin 27.3 pg (25.6-32.2); Mean Platelet Volume 9.1 fL (9.4-12.3); Monocyte (Absolute #) 0.16 x10^3/uL (0.24-0.86); Monocytes % 1.4 % (4.7-12.5); Neutrophil % 88.8 % (34.0-71.1); Platelet Count 268 x10^3/uL (182-369); Red Blood Count 3.52 x10^6/uL (3.93-5.22); Red Cell Distribution Width 16.5 % (11.7-14.4); White Blood Count 11.5 x10^3/uL (3.98-10.04)
[2023-07-30] MEDS ORDERED: DUONEB 0.5-3 MG/3 ml Neb IH ONE (02:46)
[2023-07-30 02:51] LABS: ALBUMIN 3.7 g/dL (3.5-5.0); BILIRUBIN,TOTAL 0.3 mg/dL (0.2-1.3); Calcium 8.6 mg/dL (8.4-10.2); Creatinine 1 0.99 mg/dL (0.52-1.04); EST GLOMERULAR FILTRATION RATE 64.5 ML/MIN; Potassium 4.2 mmol/L (3.5-5.1); Total Protein 7.2 g/dL (6.3-8.2)
[2023-07-30 03:15] LABS: A-aADO2 76; ABG HEMOGLOBIN 10.6; ABG POTASSIUM 4.3 (3.5-5.1); ARTERIAL BLD GAS O2 SATURATION 97.9 % (95-100); ARTERIAL BLOOD GAS BASE EXCESS 14.7 (-2.0-2.0); ARTERIAL BLOOD GAS FIO2 36 %; ARTERIAL BLOOD GAS PCO2 74 mmHg (35-45); ARTERIAL BLOOD GAS PO2 88 mmHg (75-100); ARTERIAL BLOOD GAS pH 7.37 (7.35-7.45); CARBOXYHEMOGLOBIN 1.3 % THgb (0.0-6.9); HCO3- 42.8 (22-28); HGB O2 SAT 95.8 g/dF (94-100); Methhemoglobin 0.8 % (1.4-1.5); paO2 pAO1 0.54
[2023-07-30 03:16] LABS: ABG SITE LEFT BRACHIAL
[2023-07-30] MEDS: DUONEB 0.5-3 MG/3 ml Neb IH SCH (03:19)
[2023-07-30 03:30] LABS: ANION GAP 15.2 MEQ/L (5-15)
[2023-07-30] MEDS: PULMICORT 0.5 MG/2 ML RESPULES IH SCH (06:57)
[2023-07-30] MEDS: solu-MEDROL 60 MG, Sterile H2O 10 ml 2 ML IV SCH (07:05)
[2023-07-30] MEDS: SYNTHROID 150 MCG PO SCH (07:06)
[2023-07-30] MEDS: Tegretol 200 MG PO SCH ×2 (08:21→16:30)
--- NOTE | 2023-07-30 08:49 | XRAY ---
Indication: Short of breath. Comparison: February 06, 2023 Portable chest less inflated crowding both lung bases. Remaining heart and lungs unremarkable. Bony thorax intact again with osteopenia and mild degenerative changes Impression: Nonacute underinflated chest.
[2023-07-30] MEDS: Nicoderm CQ 21 MG TOP SCH (08:51)
[2023-07-30 09:18] LABS: INFLUENZA A NEGATIVE (NEGATIVE); INFLUENZA B NEGATIVE (NEGATIVE); RESPIRATORY SYNCTIAL VIRUS NEGATIVE (NEGATIVE); SARS-CoV-2 Xpert Express NEGATIVE (NEGATIVE)
[2023-07-30] MEDS ORDERED: ROCEPHIN 1 GM / 100 ML NaCl 1 GM/100 ML IVPB IV SCH (10:00)
[2023-07-30] MEDS: Zithromax 500 MG/ 250 ML NaCl Premix 500 MG/250 ML IVPB IV SCH (10:35)
[2023-07-30] MEDS: ENOXAPARIN SODIUM SQ SCH (10:35)
[2023-07-30] MEDS: Vitamin B-12 500 MCG PO SCH (10:36)
[2023-07-30] MEDS: Ecotrin 325 MG PO SCH (10:36)
[2023-07-30] MEDS: Cymbalta 30 MG Capsule PO SCH (10:37)
[2023-07-30] MEDS: ZOCOR 20MG PO SCH (10:37)
--- NOTE | 2023-07-30 11:10 | PCM.NOTE ---
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 in ER her V/S were stable, Bp running towards softer side, lab remarkable for wbc > 12, ABG with Pc02 > 90, PH 7.33, pt was saturating > 90 % on 4 liters, she was placed on BIPAP, repeat ABG showed improvement in Pco2, X- ray unremarkable. Pt admitted for Confusion/COPD excerbation and hypercapnoic resp failure. 07/30/23: Met with patient bedside. Endorses cough and dyspnea with some improvement. Her cough is mostly non-productive but she has expelled white sputum intermittently. She denies any fever. She associates her exacerbation with her resumption of smoking. She had quit for several months but had a recent of a friend and started smoking 1.5 PPD again. She is interested in cessation and has been started on a nicotine patch. She continues to have some confusion. She expresses that she would like to avoid the BIPAP if possible as it gives her extreme anxiety. Lung sound diminished with wheezing throughout. Oxygen sat was at 88% on 4L which has been her baseline at home.CXR on admission non-acute. Plan to obtain CT of Chest with co, start levaquin as pt has allergy to ceftriaxone, continue steroid/nebs/bronchodilators. - Review of Systems Constitutional: Lethargy Eyes: No Symptoms Ears, Nose, & Throat: No Symptoms Respiratory: Cough, Short Of Breath Cardiac: No Symptoms Abdominal/Gastrointestinal: No Symptoms Genitourinary Symptoms: No Symptoms Musculoskeletal: No Symptoms Skin: No Symptoms Neurological: No Symptoms Psychological: Anxiety, Depression Endocrine: No Symptoms Hematologic/Lymphatic: No Symptoms Immunological/Allergic: No Symptoms Objective Exam General Appearance: no apparent distress Neurologic Exam: alert, oriented x 3, cooperative Skin Exam: pale Eye Exam: PERRL Ears, Nose, Throat Exam: moist mucous membranes Neck Exam: normal inspection Respiratory Exam: diminished breath sounds, wheezing Cardiovascular Exam: regular rate/rhythm, normal heart sounds Gastrointestinal/Abdomen Exam: soft, normal bowel sounds Extremity Exam: normal inspection Back Exam: normal inspection Pelvic Exam: deferred Rectal Exam: deferred Objective Data Vital Signs: Vital Signs - 24 hr Temp Pulse Resp BP BP Pulse Ox 07/30/23 07:27 96.9 F 63 24 138/76 96 07/30/23 06:59 69 23 93 L 07/30/23 04:00 97.9 F 79 18 135/71 98 07/30/23 03:00 68 16 96 07/29/23 23:42 97.0 F 69 17 104/71 94 L 07/29/23 22:51 97.0 F 69 17 104/71 94 L 07/29/23 22:34 92 L 07/29/23 22:00 69 17 109/70 94 L 07/29/23 21:30 66 15 108/67 95 07/29/23 21:06 73 19 135/81 97 07/29/23 20:30 79 17 92/53 99 07/29/23 20:00 58 L 14 91/47 97 07/29/23 19:30 58 L 17 136/57 98 07/29/23 19:26 69 14 98 07/29/23 19:22 96 07/29/23 19:00 62 17 122/71 96 07/29/23 18:30 63 13 101/56 99 07/29/23 18:15 70 16 97 07/29/23 18:00 65 14 112/68 95 07/29/23 17:43 22 96 07/29/23 17:36 97.0 F 70 23 104/71 104/71 96 Oxygen-Last 24 hours Oxygen Flowrate (L/min)-RT 4 Pain Assessment - Last Documented Pain Intensity 0 Intake and Output: Intake & Output 07/27/23 07/28/23 07/29/23 07/30/23 11:59 11:59 11:59 11:59 Intake Total 350 Balance 350 Weight 93.8 kg Lab Results: Lab Results-Last 24 Hours 07/29/23 07/29/23 07/29/23 Range/Units 18:14 18:14 19:00 WBC 12.3 H (3.98-10.04) x10^3/uL RBC 3.68 L (3.93-5.22) x10^6/uL Hgb 10.0 L (11.2-15.7) g/dL Hct 33.3 L (34.1-44.9) % MCV 90.5 (79.4-94.8) fL MCH 27.2 (25.6-32.2) pg MCHC 30.0 L (32.2-35.5) g/dL RDW 16.6 H (11.7-14.4) % Plt Count 287 (182-369) x10^3/uL MPV 9.2 L (9.4-12.3) fL Gran % 73.5 H (34.0-71.1) % Immature Gran % (Auto) 1.5 H (0.001-0.429) % Nucleat RBC Rel Count 0.0 (0.00-0.2) % Eos # (Auto) 0.20 (0.04-0.36) x10^3/uL Immature Gran # (Auto) 0.18 H (0.001-0.031) x10^3u/L Absolute Lymphs (auto) 1.94 (1.18-3.74) x10^3/uL Absolute Monos (auto) 0.86 (0.24-0.86) x10^3/uL Absolute Nucleated RBC 0.00 (0.00-0.012) x10^3u/L Lymphocytes % 15.8 L (19.3-51.7) % Monocytes % 7.0 (4.7-12.5) % Eosinophils % 1.6 (0.7-5.8) % Basophils % 0.6 (0.1-1.2) % Absolute Granulocytes 9.02 H (1.56-6.13) x10^3/uL Basophils # 0.07 (0.01-0.08) x10^3/uL Puncture Site LEFT RADIAL pCO2 96 H* (35-45) mmHg pO2 133 H* (75-100) mmHg Base Excess 20.7 H (-2.0-2.0) O2 Saturation 96.9 (94-100) g/dF ABG pH 7.33 L (7.35-7.45) ABG HCO3 50.6 H* (22-28) ABG O2 Sat (Measured) 99.3 (95-100) % Shabbir Test YES A-a Gradient 104 a/A Ratio 0.56 Hemoglobin 10.3 Carboxyhemoglobin 1.7 (0.0-6.9) % THgb Methemoglobin 0.6 L (1.4-1.5) % Temperature 37.0 C POC O2 Flow Rate 50 % Sodium 139 (135-145) mmol/L Potassium 3.8 4.2 (3.5-5.1) mmol/L Chloride 92 L (98-107) mmol/L Carbon Dioxide 40 H (22-30) mmol/L Anion Gap 10 (5-15) MEQ/L BUN 12 (7-17) mg/dL Creatinine 1.26 H (0.52-1.04) mg/dL Estimated GFR 48.3 ML/MIN Glucose 123 H (74-106) mg/dL Calcium 8.5 (8.4-10.2) mg/dL Total Bilirubin 0.40 (0.2-1.3) mg/dL AST 22 (14-36) U/L ALT 18 (0-35) U/L Alkaline Phosphatase 98 (38-126) U/L Troponin I (0.000-0.033) ng/mL NT-Pro-B Natriuret Pep (<300) pg/mL Serum Total Protein 7.5 (6.3-8.2) g/dL Albumin 3.8 (3.5-5.0) g/dL Urine Color (Yellow) Urine Appearance (Clear) Urine pH (4.6-8.0) Ur Specific Julian (1.005-1.030) Urine Protein (Negative) Urine Glucose (UA) (Negative) mg/dL Urine Ketones (Negative) Urine Blood (Negative) Urine Nitrite (Negative) Urine Bilirubin (Negative) Urine Urobilinogen (0.2) mg/dL Ur Leukocyte Esterase (Negative) U Hyaline Cast (Auto) (0-2) /LPF Urine Microscopic RBC (0-5) /HPF Urine Microscopic WBC (0-5) /HPF Ur Epithelial Cells (None Seen) /HPF Urine Bacteria (None Seen) /HPF Urine Culture Reflexed (NO) Influenza Type A Ag (NEGATIVE) Influenza Type B Ag (NEGATIVE) RSV (PCR) (NEGATIVE) SARS-CoV-2 (PCR) (NEGATIVE) 07/29/23 07/29/23 07/29/23 Range/Units 20:15 20:30 Unknown WBC (3.98-10.04) x10^3/uL RBC (3.93-5.22) x10^6/uL Hgb (11.2-15.7) g/dL Hct (34.1-44.9) % MCV (79.4-94.8) fL MCH (25.6-32.2) pg MCHC (32.2-35.5) g/dL RDW (11.7-14.4) % Plt Count (182-369) x10^3/uL MPV (9.4-12.3) fL Gran % (34.0-71.1) % Immature Gran % (Auto) (0.001-0.429) % Nucleat RBC Rel Count (0.00-0.2) % Eos # (Auto) (0.04-0.36) x10^3/uL Immature Gran # (Auto) (0.001-0.031) x10^3u/L Absolute Lymphs (auto) (1.18-3.74) x10^3/uL Absolute Monos (auto) (0.24-0.86) x10^3/uL Absolute Nucleated RBC (0.00-0.012) x10^3u/L Lymphocytes % (19.3-51.7) % Monocytes % (4.7-12.5) % Eosinophils % (0.7-5.8) % Basophils % (0.1-1.2) % Absolute Granulocytes (1.56-6.13) x10^3/uL Basophils # (0.01-0.08) x10^3/uL Puncture Site LEFT BRACHIAL pCO2 82 H* (35-45) mmHg pO2 71 L (75-100) mmHg Base Excess 18.9 H (-2.0-2.0) O2 Saturation 93.1 L (94-100) g/dF ABG pH 7.37 (7.35-7.45) ABG HCO3 47.4 H* (22-28) ABG O2 Sat (Measured) 95.6 (95-100) % Shabbir Test NOT APPLICABLE A-a Gradient 83 a/A Ratio 0.46 Hemoglobin 9.9 Carboxyhemoglobin 1.9 (0.0-6.9) % THgb Methemoglobin 0.7 L (1.4-1.5) % Temperature 37.0 C POC O2 Flow Rate 36 % Sodium (135-145) mmol/L Potassium 4.3 (3.5-5.1) mmol/L Chloride (98-107) mmol/L Carbon Dioxide (22-30) mmol/L Anion Gap (5-15) MEQ/L BUN (7-17) mg/dL Creatinine (0.52-1.04) mg/dL Estimated GFR ML/MIN Glucose (74-106) mg/dL Calcium (8.4-10.2) mg/dL Total Bilirubin (0.2-1.3) mg/dL AST (14-36) U/L ALT (0-35) U/L Alkaline Phosphatase (38-126) U/L Troponin I < 0.012 (0.000-0.033) ng/mL NT-Pro-B Natriuret Pep 227 (<300) pg/mL Serum Total Protein (6.3-8.2) g/dL Albumin (3.5-5.0) g/dL Urine Color (Yellow) Urine Appearance (Clear) Urine pH (4.6-8.0) Ur Specific Julian (1.005-1.030) Urine Protein (Negative) Urine Glucose (UA) (Negative) mg/dL Urine Ketones (Negative) Urine Blood (Negative) Urine Nitrite (Negative) Urine Bilirubin (Negative) Urine Urobilinogen (0.2) mg/dL Ur Leukocyte Esterase (Negative) U Hyaline Cast (Auto) (0-2) /LPF Urine Microscopic RBC (0-5) /HPF Urine Microscopic WBC (0-5) /HPF Ur Epithelial Cells (None Seen) /HPF Urine Bacteria (None Seen) /HPF Urine Culture Reflexed (NO) Influenza Type A Ag (NEGATIVE) Influenza Type B Ag (NEGATIVE) RSV (PCR) (NEGATIVE) SARS-CoV-2 (PCR) (NEGATIVE) 07/30/23 07/30/23 07/30/23 Range/Units 00:25 02:26 02:26 WBC 11.5 H (3.98-10.04) x10^3/uL RBC 3.52 L (3.93-5.22) x10^6/uL Hgb 9.6 L (11.2-15.7) g/dL Hct 32.0 L (34.1-44.9) % MCV 90.9 (79.4-94.8) fL MCH 27.3 (25.6-32.2) pg MCHC 30.0 L (32.2-35.5) g/dL RDW 16.5 H (11.7-14.4) % Plt Count 268 (182-369) x10^3/uL MPV 9.1 L (9.4-12.3) fL Gran % 88.8 H (34.0-71.1) % Immature Gran % (Auto) 1.8 H (0.001-0.429) % Nucleat RBC Rel Count 0.0 (0.00-0.2) % Eos # (Auto) 0 L (0.04-0.36) x10^3/uL Immature Gran # (Auto) 0.21 H (0.001-0.031) x10^3u/L Absolute Lymphs (auto) 0.88 L (1.18-3.74) x10^3/uL Absolute Monos (auto) 0.16 L (0.24-0.86) x10^3/uL Absolute Nucleated RBC 0.00 (0.00-0.012) x10^3u/L Lymphocytes % 7.7 L (19.3-51.7) % Monocytes % 1.4 L (4.7-12.5) % Eosinophils % 0.0 L (0.7-5.8) % Basophils % 0.3 (0.1-1.2) % Absolute Granulocytes 10.18 H (1.56-6.13) x10^3/uL Basophils # 0.03 (0.01-0.08) x10^3/uL Puncture Site pCO2 (35-45) mmHg pO2 (75-100) mmHg Base Excess (-2.0-2.0) O2 Saturation (94-100) g/dF ABG pH (7.35-7.45) ABG HCO3 (22-28) ABG O2 Sat (Measured) (95-100) % Shabbir Test A-a Gradient a/A Ratio Hemoglobin Carboxyhemoglobin (0.0-6.9) % THgb Methemoglobin (1.4-1.5) % Temperature C POC O2 Flow Rate % Sodium 137 (135-145) mmol/L Potassium 4.2 (3.5-5.1) mmol/L Chloride 93 L (98-107) mmol/L Carbon Dioxide 33 H (22-30) mmol/L Anion Gap 15.2 H (5-15) MEQ/L BUN 12 (7-17) mg/dL Creatinine 0.99 (0.52-1.04) mg/dL Estimated GFR 64.5 ML/MIN Glucose 140 H (74-106) mg/dL Calcium 8.6 (8.4-10.2) mg/dL Total Bilirubin 0.30 (0.2-1.3) mg/dL AST 21 (14-36) U/L ALT 18 (0-35) U/L Alkaline Phosphatase 94 (38-126) U/L Troponin I (0.000-0.033) ng/mL NT-Pro-B Natriuret Pep 148 (<300) pg/mL Serum Total Protein 7.2 (6.3-8.2) g/dL Albumin 3.7 (3.5-5.0) g/dL Urine Color Yellow (Yellow) Urine Appearance Cloudy A (Clear) Urine pH 6.0 (4.6-8.0) Ur Specific Julian 1.015 (1.005-1.030) Urine Protein 30 (Negative) Urine Glucose (UA) 100 A (Negative) mg/dL Urine Ketones Negative (Negative) Urine Blood Negative (Negative) Urine Nitrite Negative (Negative) Urine Bilirubin Negative (Negative) Urine Urobilinogen 0.2 (0.2) mg/dL Ur Leukocyte Esterase Negative (Negative) U Hyaline Cast (Auto) 3-5 A (0-2) /LPF Urine Microscopic RBC 0-2 (0-5) /HPF Urine Microscopic WBC 0-2 (0-5) /HPF Ur Epithelial Cells None Seen (None Seen) /HPF Urine Bacteria None Seen (None Seen) /HPF Urine Culture Reflexed NO (NO) Influenza Type A Ag (NEGATIVE) Influenza Type B Ag (NEGATIVE) RSV (PCR) (NEGATIVE) SARS-CoV-2 (PCR) (NEGATIVE) 07/30/23 07/30/23 Range/Units 03:00 08:11 WBC (3.98-10.04) x10^3/uL RBC (3.93-5.22) x10^6/uL Hgb (11.2-15.7) g/dL Hct (34.1-44.9) % MCV (79.4-94.8) fL MCH (25.6-32.2) pg MCHC (32.2-35.5) g/dL RDW (11.7-14.4) % Plt Count (182-369) x10^3/uL MPV (9.4-12.3) fL Gran % (34.0-71.1) % Immature Gran % (Auto) (0.001-0.429) % Nucleat RBC Rel Count (0.00-0.2) % Eos # (Auto) (0.04-0.36) x10^3/uL Immature Gran # (Auto) (0.001-0.031) x10^3u/L Absolute Lymphs (auto) (1.18-3.74) x10^3/uL Absolute Monos (auto) (0.24-0.86) x10^3/uL Absolute Nucleated RBC (0.00-0.012) x10^3u/L Lymphocytes % (19.3-51.7) % Monocytes % (4.7-12.5) % Eosinophils % (0.7-5.8) % Basophils % (0.1-1.2) % Absolute Granulocytes (1.56-6.13) x10^3/uL Basophils # (0.01-0.08) x10^3/uL Puncture Site LEFT BRACHIAL pCO2 74 H* (35-45) mmHg pO2 88 (75-100) mmHg Base Excess 14.7 H (-2.0-2.0) O2 Saturation 95.8 (94-100) g/dF ABG pH 7.37 (7.35-7.45) ABG HCO3 42.8 H* (22-28) ABG O2 Sat (Measured) 97.9 (95-100) % Shabbir Test NOT APPLICABLE A-a Gradient 76 a/A Ratio 0.54 Hemoglobin 10.6 Carboxyhemoglobin 1.3 (0.0-6.9) % THgb Methemoglobin 0.8 L (1.4-1.5) % Temperature 37.0 C POC O2 Flow Rate 36 % Sodium (135-145) mmol/L Potassium 4.3 (3.5-5.1) mmol/L Chloride (98-107) mmol/L Carbon Dioxide (22-30) mmol/L Anion Gap (5-15) MEQ/L BUN (7-17) mg/dL Creatinine (0.52-1.04) mg/dL Estimated GFR ML/MIN Glucose (74-106) mg/dL Calcium (8.4-10.2) mg/dL Total Bilirubin (0.2-1.3) mg/dL AST (14-36) U/L ALT (0-35) U/L Alkaline Phosphatase (38-126) U/L Troponin I (0.000-0.033) ng/mL NT-Pro-B Natriuret Pep (<300) pg/mL Serum Total Protein (6.3-8.2) g/dL Albumin (3.5-5.0) g/dL Urine Color (Yellow) Urine Appearance (Clear) Urine pH (4.6-8.0) Ur Specific Julian (1.005-1.030) Urine Protein (Negative) Urine Glucose (UA) (Negative) mg/dL Urine Ketones (Negative) Urine Blood (Negative) Urine Nitrite (Negative) Urine Bilirubin (Negative) Urine Urobilinogen (0.2) mg/dL Ur Leukocyte Esterase (Negative) U Hyaline Cast (Auto) (0-2) /LPF Urine Microscopic RBC (0-5) /HPF Urine Microscopic WBC (0-5) /HPF Ur Epithelial Cells (None Seen) /HPF Urine Bacteria (None Seen) /HPF Urine Culture Reflexed (NO) Influenza Type A Ag NEGATIVE (NEGATIVE) Influenza Type B Ag NEGATIVE (NEGATIVE) RSV (PCR) NEGATIVE (NEGATIVE) SARS-CoV-2 (PCR) NEGATIVE (NEGATIVE) Radiology Exams: Radiology Procedures Category Date Time Status CHEST 1 VIEW (PORTABLE) Stat Exams 07/29/23 18:00 Completed CHEST WITH CONTRAST [CT] Stat Exams 07/30/23 08:17 Ordered Multi-Disciplinary Progress Notes: Multi-Disciplinary Progress Notes 07/30/23 10:24 Case Management Note by Ayesha Lopez PATIENT HAS [facility]. THEY WERE NOTIFIED PATIENT IS HERE IN OBS. THEY WILL NEED NOTIFIED AT TIME OF DC AT [phone]. THEY WILL NEED FAXED THE DC INSTRUCTIONS, DC MED LIST AND DC SUMMARY TO [phone] Initialized on 07/30/23 10:24 - END OF NOTE Assessment/Plan (1) Acute hypercapnic respiratory failure Current Visit: Yes Status: Acute Assessment & Plan: -Secondary to COPD exacerbation/GUIDO -Supplemental oxygen as needed to maintain spo2 goal of 88-92% - patient currently on 4L -DuoNebs/bronchodilators/solu-medrol -CXR reviewed - unremarkable - will obtain CT chest -Advised smoking cessation- she is currently smoking 1.5PPD, pt is ready to quit - will start nicotine patch -Levaquin -ABG/BIPAP as needed with increased confusion/lethargy Code(s): J96.02 - ACUTE RESPIRATORY FAILURE WITH HYPERCAPNIA (2) COPD exacerbation Current Visit: Yes Status: Acute Assessment & Plan: -Supplemental oxygen as needed to maintain spo2 goal of 88-92% - patient currently on 4L -DuoNebs/bronchodilators/solu-medrol -CXR reviewed - unremarkable - will obtain CT chest -Resp viral panel negative -Levaquin - allergy to ceftriaxone -Consult pulm if no improvement -ABG/BIPAP -RT to eval if pt with increased lethargy/confusion - PT reluctant to be on BIPAP Code(s): J44.1 - CHRONIC OBSTRUCTIVE PULMONARY DISEASE W (ACUTE) EXACERBATION (3) HTN (hypertension) Current Visit: Yes Status: Acute Assessment & Plan: -Stable, continue home medications Code(s): I10 - ESSENTIAL (PRIMARY) HYPERTENSION (4) Anxiety and depression Current Visit: Yes Status: Acute Assessment & Plan: -continue home medications Abilify, cymbalta, tegretol, xanax prn Code(s): F41.9 - ANXIETY DISORDER, UNSPECIFIED; F32.A - DEPRESSION, UNSPECIFIED (5) Obesity (BMI 30.0-34.9) Current Visit: Yes Status: Acute Assessment & Plan: BMI > 33 Needs Exercise + dietary advise for weight reduction Code(s): E66.9 - OBESITY, UNSPECIFIED (6) Acute encephalopathy Current Visit: Yes Status: Acute Assessment & Plan: -Most likely secondary to CO2 retention - improving -Continue to hold trazadone -ABG/BIPAP if increase in confusion/lethargy Code(s): G93.40 - ENCEPHALOPATHY, UNSPECIFIED (7) GUIDO (obstructive sleep apnea) Current Visit: Yes Status: Acute Assessment & Plan: Undiagnosed ,Pt seems to have GUIDO/OHS with chronic C02 retention resulting in multiple hospital visits Pt says she does not use any CPAP at home Needs to get sleep study as out pt after d/c DVT PPX Lovenox PPI: protonix Code status Full D/c planning, Pending clinical stability Code(s): G47.33 - OBSTRUCTIVE SLEEP APNEA (ADULT) (PEDIATRIC)
[2023-07-30] MEDS ORDERED: Zanaflex 4 MG PO PRN (11:17)
[2023-07-30] MEDS ORDERED: NORCO 10-325 MG PO PRN (11:17)
[2023-07-30] MEDS: Klor Con PO SCH (13:01)
[2023-07-30] MEDS: LYRICA 150MG PO SCH (13:01)
[2023-07-30] MEDS: Lotensin PO SCH (13:02)
[2023-07-30] MEDS: Lasix 40 MG PO SCH (13:02)
[2023-07-30] MEDS: PROTONIX 40 MG IV IV SCH (13:03)
--- NOTE | 2023-07-30 14:06 | XRAY ---
Indication: Acute respiratory failure. Hypoxia. Multiple contiguous axial images obtained through the chest using 80 cc Isovue 370 contrast. Comparison: February 06, 2023 Lung again demonstrates mild bibasilar subsegmental atelectasis/scarring more than before. No suspicious pulmonary mass/nodule, infiltrate, or effusion. Heart not enlarged. Aorta is normal in course and caliber. No pathologic mediastinal/hilar lymphadenopathy. Bony thorax intact again with mild degenerative changes throughout the visualized spine. New finding for healing anterior right 3-6 and anterior left 2-6 rib fractures Limited upper abdomen again demonstrates diffuse fatty liver. 2 small gallstones largest 1.3 cm and 1.3 cm left mid renal cyst, both findings not previously included in [id number]. Impression: 1. Again bibasilar atelectasis/scarring. No new/acute cardiopulmonary abnormalities. 2. Chronic findings including healing bilateral rib fractures, degenerative spondylosis, fatty liver, gallstones, and left renal cyst.
[2023-07-30] MEDS ORDERED: xanAX 0.25 MG PO SCH (15:00)
[2023-07-30] MEDS: Abilify 10 MG PO SCH (21:27)
[2023-07-30] MEDS: xanAX 0.25 MG PO PRN (21:50)
[2023-07-30] MEDS ORDERED: NON-FORMULARY ITEM (Pregabalin [Lyrica] 300 MG Capsule) PO SCH (22:00)
[2023-07-31 05:15] LABS: Absolute Neutrophil Ct (ANC) 13.71 x10^3/uL (1.56-6.13); BASOPHIL % 0.2 % (0.1-1.2); Basophil (Absolute #) 0.03 x10^3/uL (0.01-0.08); Eosinophil (Absolute #) 0 x10^3/uL (0.04-0.36); Hematocrit 30.1 % (34.1-44.9); Hemoglobin 9.2 g/dL (11.2-15.7); Lymphocyte (Absolute #) 0.83 x10^3/uL (1.18-3.74); Lymphocytes % 5.5 % (19.3-51.7); Mean Corpuscular Hemoglobin 26.6 pg (25.6-32.2); Mean Corpuscular Hgb Concent. 30.6 g/dL (32.2-35.5); Mean Platelet Volume 9.5 fL (9.4-12.3); Monocyte (Absolute #) 0.28 x10^3/uL (0.24-0.86); Monocytes % 1.8 % (4.7-12.5); Neutrophil % 90.5 % (34.0-71.1); Platelet Count 270 x10^3/uL (182-369); Red Blood Count 3.46 x10^6/uL (3.93-5.22); Red Cell Distribution Width 16.7 % (11.7-14.4); White Blood Count 15.2 x10^3/uL (3.98-10.04)
--- NOTE | 2023-07-31 05:19 | PCM.NOTE ---
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 in ER her V/S were stable, Bp running towards softer side, lab remarkable for wbc > 12, ABG with Pc02 > 90, PH 7.33, pt was saturating > 90 % on 4 liters, she was placed on BIPAP, repeat ABG showed improvement in Pco2, X- ray unremarkable. Pt admitted for Confusion/COPD excerbation and hypercapnoic resp failure. 07/30/23: Met with patient bedside. Endorses cough and dyspnea with some improvement. Her cough is mostly non-productive but she has expelled white sputum intermittently. She denies any fever. She associates her exacerbation with her resumption of smoking. She had quit for several months but had a recent of a friend and started smoking 1.5 PPD again. She is interested in cessation and has been started on a nicotine patch. She continues to have some confusion. She expresses that she would like to avoid the BIPAP if possible as it gives her extreme anxiety. Lung sound diminished with wheezing throughout. Oxygen sat was at 88% on 4L which has been her baseline at home.CXR on admission non-acute. Plan to obtain CT of Chest with co, start levaquin as pt has allergy to ceftriaxone, continue steroid/nebs/bronchodilators. Objective Data Vital Signs: Vital Signs - 24 hr Temp Pulse Resp BP Pulse Ox 07/31/23 04:00 98.2 F 84 16 134/63 96 07/31/23 03:32 84 16 96 07/30/23 23:55 98.2 F 99 H 16 163/77 92 L 07/30/23 22:58 99 H 16 92 L 07/30/23 20:04 104 H 16 93 L 07/30/23 20:00 97.8 F 86 20 124/60 96 07/30/23 16:00 97.0 F 82 20 145/65 95 07/30/23 15:26 78 20 98 07/30/23 11:28 97.8 F 76 16 157/73 98 07/30/23 11:08 81 24 93 L 07/30/23 07:27 96.9 F 63 24 138/76 96 07/30/23 06:59 69 23 93 L Pain Assessment - Last Documented Pain Intensity 0 Intake and Output: Intake & Output 07/28/23 07/29/23 07/30/23 07/31/23 11:59 11:59 11:59 11:59 Intake Total 350 620 Balance 350 620 Weight 93.8 kg Lab Results: Lab Results-Last 24 Hours 07/30/23 Range/Units 08:11 Influenza Type A Ag NEGATIVE (NEGATIVE) Influenza Type B Ag NEGATIVE (NEGATIVE) RSV (PCR) NEGATIVE (NEGATIVE) SARS-CoV-2 (PCR) NEGATIVE (NEGATIVE) Radiology Exams: Radiology Procedures Category Date Time Status CHEST 1 VIEW (PORTABLE) Stat Exams 07/29/23 18:00 Completed CHEST WITH CONTRAST [CT] Stat Exams 07/30/23 08:17 Completed Multi-Disciplinary Progress Notes: Multi-Disciplinary Progress Notes 07/30/23 10:24 Case Management Note by Ayesha Lopez PATIENT HAS [facility]. THEY WERE NOTIFIED PATIENT IS HERE IN OBS. THEY WILL NEED NOTIFIED AT TIME OF DC AT [phone]. THEY WILL NEED FAXED THE DC INSTRUCTIONS, DC MED LIST AND DC SUMMARY TO [phone] Initialized on 07/30/23 10:24 - END OF NOTE Assessment/Plan (1) Acute hypercapnic respiratory failure Current Visit: Yes Status: Acute Assessment & Plan: -Secondary to COPD exacerbation/GUIDO -Supplemental oxygen as needed to maintain spo2 goal of 88-92% - patient currently on 4L -DuoNebs/bronchodilators/solu-medrol -CXR reviewed - unremarkable - will obtain CT chest -Advised smoking cessation- she is currently smoking 1.5PPD, pt is ready to quit - will start nicotine patch -Levaquin -ABG/BIPAP as needed with increased confusion/lethargy Code(s): J96.02 - ACUTE RESPIRATORY FAILURE WITH HYPERCAPNIA (2) COPD exacerbation Current Visit: Yes Status: Acute Assessment & Plan: -Supplemental oxygen as needed to maintain spo2 goal of 88-92% - patient currently on 4L -DuoNebs/bronchodilators/solu-medrol -CXR reviewed - unremarkable - will obtain CT chest -Resp viral panel negative -Levaquin - allergy to ceftriaxone -Consult pulm if no improvement -ABG/BIPAP -RT to eval if pt with increased lethargy/confusion - PT reluctant to be on BIPAP Code(s): J44.1 - CHRONIC OBSTRUCTIVE PULMONARY DISEASE W (ACUTE) EXACERBATION (3) HTN (hypertension) Current Visit: Yes Status: Acute Assessment & Plan: -Stable, continue home medications Code(s): I10 - ESSENTIAL (PRIMARY) HYPERTENSION (4) Anxiety and depression Current Visit: Yes Status: Acute Assessment & Plan: -continue home medications Abilify, cymbalta, tegretol, xanax prn Code(s): F41.9 - ANXIETY DISORDER, UNSPECIFIED; F32.A - DEPRESSION, UNSPECIFIED (5) Obesity (BMI 30.0-34.9) Current Visit: Yes Status: Acute Assessment & Plan: BMI > 33 Needs Exercise + dietary advise for weight reduction Code(s): E66.9 - OBESITY, UNSPECIFIED (6) Acute encephalopathy Current Visit: Yes Status: Acute Assessment & Plan: -Most likely secondary to CO2 retention - improving -Continue to hold trazadone -ABG/BIPAP if increase in confusion/lethargy Code(s): G93.40 - ENCEPHALOPATHY, UNSPECIFIED (7) GUIDO (obstructive sleep apnea) Current Visit: Yes Status: Acute Assessment & Plan: Undiagnosed ,Pt seems to have GUIDO/OHS with chronic C02 retention resulting in multiple hospital visits Pt says she does not use any CPAP at home Needs to get sleep study as out pt after d/c DVT PPX Lovenox PPI: protonix Code status Full D/c planning, Pending clinical stabilit Code(s): J96.02 - ACUTE RESPIRATORY FAILURE WITH HYPERCAPNIA (2) COPD exacerbation Current Visit: Yes Status: Acute Code(s): J44.1 - CHRONIC OBSTRUCTIVE PULMONARY DISEASE W (ACUTE) EXACERBATION (3) HTN (hypertension) Current Visit: Yes Status: Acute Code(s): I10 - ESSENTIAL (PRIMARY) HYPERTENSION (4) Anxiety and depression Current Visit: Yes Status: Acute Code(s): F41.9 - ANXIETY DISORDER, UNSPECIFIED; F32.A - DEPRESSION, UNSPECIFIED (5) Obesity (BMI 30.0-34.9) Current Visit: Yes Status: Acute Code(s): E66.9 - OBESITY, UNSPECIFIED (6) Acute encephalopathy Current Visit: Yes Status: Acute Code(s): G93.40 - ENCEPHALOPATHY, UNSPECIFIED (7) GUIDO (obstructive sleep apnea) Current Visit: Yes Status: Acute Code(s): G47.33 - OBSTRUCTIVE SLEEP APNEA (ADULT) (PEDIATRIC)
[2023-07-31 05:38] LABS: ALBUMIN 3.8 g/dL (3.5-5.0); ANION GAP 8.6 MEQ/L (5-15); BILIRUBIN,TOTAL 0.3 mg/dL (0.2-1.3); Creatinine 1 1.09 mg/dL (0.52-1.04); EST GLOMERULAR FILTRATION RATE 57.4 ML/MIN; Potassium 3.9 mmol/L (3.5-5.1); Total Protein 6.8 g/dL (6.3-8.2)
[2023-07-31] MEDS: Lasix 40 MG PO SCH (10:36)
[2023-07-31] MEDS: LEVOFLOXACIN 750MG/150ML D5W 750 MG/150 ML BAG IV SCH (10:37)
[2023-07-31 11:20] VITALS: O2SAT 95
--- NOTE | 2023-07-31 11:24 | PCM.DS ---
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 in ER her V/S were stable, Bp running towards softer side, lab remarkable for wbc > 12, ABG with Pc02 > 90, PH 7.33, pt was saturating > 90 % on 4 liters, she was placed on BIPAP, repeat ABG showed improvement in Pco2, X- ray unremarkable. CT with no acute findings. Resp viral panel negative. Pt admitted for Confusion/COPD excerbation and hypercapnoic resp failure. Dyspnea and cough have improved. Patient at baseline mentation. Advised smoking cessation for which patient states she is ready. Patient requesting discharge today. Will send her home with nicotine patches. Continue levaquin x 3 more days. Medrol dose pack. Patient has nebulizer machine, oxygen, nebs/inh at home. She follows with Dr. Thompson (pulmonology). Advised follow up next week with PCP which she already has scheduled for Thursday and with pulm. Will schedule OP sleep study as she felt the cpap help during hospital course. Discharge Note New Diagnosis: COPD exacerbation New Medications: Levaquin/medrol dose pack Follow Up: pcp/pulm Outpatient testing to order: sleep study Latest Assessment & Plan 1) Acute hypercapnic respiratory failure Current Visit: Yes Status: Acute Assessment & Plan: -Secondary to COPD exacerbation/GUIDO -Supplemental oxygen as needed to maintain spo2 goal of 88-92% - patient currently on 4L -DuoNebs/bronchodilators/solu-medrol -CXR reviewed - unremarkable - will obtain CT chest -Advised smoking cessation- she is currently smoking 1.5PPD, pt is ready to quit - will start nicotine patch -Levaquin -ABG/BIPAP as needed with increased confusion/lethargy Code(s): J96.02 - ACUTE RESPIRATORY FAILURE WITH HYPERCAPNIA (2) COPD exacerbation Current Visit: Yes Status: Acute Assessment & Plan: -Supplemental oxygen as needed to maintain spo2 goal of 88-92% - patient currently on 4L -DuoNebs/bronchodilators/solu-medrol -CXR reviewed - unremarkable - CT with no acute findings -Resp viral panel negative -Levaquin - allergy to ceftriaxone 07/30: -Medrol dosepack -levaquin -Nebs/INH -Smoking cessation -follow up with pulm/ pcp - OP sleep study - will try for home sleep study if insurance approves Code(s): J44.1 - CHRONIC OBSTRUCTIVE PULMONARY DISEASE W (ACUTE) EXACERBATION (3) HTN (hypertension) Current Visit: Yes Status: Acute Assessment & Plan: -Stable, continue home medications Code(s): I10 - ESSENTIAL (PRIMARY) HYPERTENSION (4) Anxiety and depression Current Visit: Yes Status: Acute Assessment & Plan: -continue home medications Abilify, cymbalta, tegretol, xanax prn Code(s): F41.9 - ANXIETY DISORDER, UNSPECIFIED; F32.A - DEPRESSION, UNSPECIFIED (5) Obesity (BMI 30.0-34.9) Current Visit: Yes Status: Acute Assessment & Plan: BMI > 33 Needs Exercise + dietary advise for weight reduction Code(s): E66.9 - OBESITY, UNSPECIFIED (6) Acute encephalopathy Current Visit: Yes Status: Acute Assessment & Plan: -Most likely secondary to CO2 retention - improving -Continue to hold trazadone -ABG/BIPAP if increase in confusion/lethargy 07/30: -resolved Code(s): G93.40 - ENCEPHALOPATHY, UNSPECIFIED (7) GUIDO (obstructive sleep apnea) Current Visit: Yes Status: Acute Assessment & Plan: Undiagnosed ,Pt seems to have GUIDO/OHS with chronic C02 retention resulting in multiple hospital visits Pt says she does not use any CPAP at home Needs to get sleep study as out pt after d/c I spent 35 minutes [id number] with the patient on the day of discharge performing discharge exam, discussing hospital stay and discharge instructions with patient and caregivers, preparation of discharge records, prescriptions & referral forms and addressing any questions/concerns the patient had as do cumented above. - Vitals & Intake/Output Vital Signs: Vital Signs Temperature 97.7 F 07/31/23 08:00 Pulse Rate 87 07/31/23 08:00 Respiratory Rate 20 07/31/23 08:00 Blood Pressure 160/70 07/31/23 08:00 O2 Sat by Pulse Oximetry 94 L 07/31/23 08:00 Intake & Output: Intake & Output 07/28/23 07/29/23 07/30/23 07/31/23 11:59 11:59 11:59 11:59 Intake Total 350 980 Balance 350 980 Weight 93.8 kg 92.1 kg - Lab Result Diagrams: 07/31/23 04:30 07/31/23 04:30 Lab Results-Last 24 Hrs: Lab Results-Last 24 Hours 07/31/23 07/31/23 Range/Units 04:30 04:30 WBC 15.2 H (3.98-10.04) x10^3/uL RBC 3.46 L (3.93-5.22) x10^6/uL Hgb 9.2 L (11.2-15.7) g/dL Hct 30.1 L (34.1-44.9) % MCV 87.0 (79.4-94.8) fL MCH 26.6 (25.6-32.2) pg MCHC 30.6 L (32.2-35.5) g/dL RDW 16.7 H (11.7-14.4) % Plt Count 270 (182-369) x10^3/uL MPV 9.5 (9.4-12.3) fL Gran % 90.5 H (34.0-71.1) % Immature Gran % (Auto) 2.0 H (0.001-0.429) % Nucleat RBC Rel Count 0.0 (0.00-0.2) % Eos # (Auto) 0 L (0.04-0.36) x10^3/uL Immature Gran # (Auto) 0.30 H (0.001-0.031) x10^3u/L Absolute Lymphs (auto) 0.83 L (1.18-3.74) x10^3/uL Absolute Monos (auto) 0.28 (0.24-0.86) x10^3/uL Absolute Nucleated RBC 0.00 (0.00-0.012) x10^3u/L Lymphocytes % 5.5 L (19.3-51.7) % Monocytes % 1.8 L (4.7-12.5) % Eosinophils % 0.0 L (0.7-5.8) % Basophils % 0.2 (0.1-1.2) % Absolute Granulocytes 13.71 H (1.56-6.13) x10^3/uL Basophils # 0.03 (0.01-0.08) x10^3/uL Sodium 133 L (135-145) mmol/L Potassium 3.9 (3.5-5.1) mmol/L Chloride 91 L (98-107) mmol/L Carbon Dioxide 37 H (22-30) mmol/L Anion Gap 8.6 (5-15) MEQ/L BUN 23 H (7-17) mg/dL Creatinine 1.09 H (0.52-1.04) mg/dL Estimated GFR 57.4 ML/MIN Glucose 157 H (74-106) mg/dL Calcium 9.0 (8.4-10.2) mg/dL Total Bilirubin 0.30 (0.2-1.3) mg/dL AST 19 (14-36) U/L ALT 18 (0-35) U/L Alkaline Phosphatase 90 (38-126) U/L Serum Total Protein 6.8 (6.3-8.2) g/dL Albumin 3.8 (3.5-5.0) g/dL Micro Results-Entire Visit: Microbiology 07/30/23 02:26 Blood Culture - Preliminary Blood - Radiology Exams Ordered Rad Exams-Entire Visit: Radiology Procedures Category Date Time Status CHEST 1 VIEW (PORTABLE) Stat Exams 07/29/23 18:00 Completed CHEST WITH CONTRAST [CT] Stat Exams 07/30/23 08:17 Completed - Procedures and Test Procedures and Tests throughout Hospitalization: Therapy Orders & Screens 07/29/23 22:34 EKG REPEAT IN AM Comment: Respiratory Therapy Consult ONCE Comment: Reason For Exam: 07/29/23 23:13 RT Screen per Nursing Assess ONCE Comment: Protocol Order Physician Instructions: Greater than 3 points order RT Admission Screen Reason For Exam: Triggered on Admission Diagnosis: COPD EXAC; CONFUSION Diagnosis: COPD EXAC; CONFUSION Pneumonia: No Home O2: Yes Asthma: No CHF: Yes Home CPAP/BIPAP: No Home Nebs/MDI: No Total Points: 8 07/30/23 00:19 BiPap/CPAP ROUTINE Comment: Diagnosis: Shortness of breath 07/30/23 00:20 Oxygen Nasal Cannula 4 lpm Comment: Diagnosis: Shortness of breath Discharge Exam General Appearance: no apparent distress Neurologic Exam: alert, oriented x 3, cooperative Eye Exam: PERRL Ears, Nose, Throat Exam: normal ENT inspection Neck Exam: normal inspection Respiratory Exam: diminished breath sounds Cardiovascular Exam: regular rate/rhythm, normal heart sounds Gastrointestinal/Abdomen Exam: soft, normal bowel sounds Pelvic Exam: deferred Rectal Exam: deferred Back Exam: normal inspection Extremity Exam: normal inspection Skin Exam: normal color Final Diagnosis/Problem List - Final Discharge Diagnosis/Problem (1) Acute hypercapnic respiratory failure Current Visit: Yes Status: Resolved Code(s): J96.02 - ACUTE RESPIRATORY FAILURE WITH HYPERCAPNIA (2) COPD exacerbation Current Visit: Yes Status: Acute Code(s): J44.1 - CHRONIC OBSTRUCTIVE PULMONARY DISEASE W (ACUTE) EXACERBATION (3) HTN (hypertension) Current Visit: Yes Status: Chronic Code(s): I10 - ESSENTIAL (PRIMARY) HYPERTENSION (4) Anxiety and depression Current Visit: Yes Status: Chronic Code(s): F41.9 - ANXIETY DISORDER, UNSPECIFIED; F32.A - DEPRESSION, UNSPECIFIED (5) Obesity (BMI 30.0-34.9) Current Visit: Yes Status: Chronic Code(s): E66.9 - OBESITY, UNSPECIFIED (6) Acute encephalopathy Current Visit: Yes Status: Resolved Code(s): G93.40 - ENCEPHALOPATHY, UNSPECIFIED (7) GUIDO (obstructive sleep apnea) Current Visit: Yes Status: Chronic Code(s): G47.33 - OBSTRUCTIVE SLEEP APNEA (ADULT) (PEDIATRIC) - Discharge Disposition: Home, Self-Care Condition: Stable Prescriptions: New levoFLOXacin [Levofloxacin] 750 mg PO DAILY 5 Days #5 tablet Methylprednisolone Packet [Medrol Dosepack] 4 mg PO UD #30 packet Nicotine 21 mg [Nicoderm CQ 21 MG] 21 mg TOP Q24H10 44 Days #44 patch Continue Tizanidine HCl 4 mg [Zanaflex 4 MG] 4 mg PO Q8HPRN PRN PRN Reason: Muscle Spasms Pregabalin [Lyrica] 300 mg PO BID Duloxetine HCl 30 mg [Cymbalta 30 MG Capsule] 120 mg PO DAILY ARIPiprazole [Aripiprazole] 10 mg PO HS Trazodone HCl 50 mg [Desyrel 50 mg] 200 mg PO HS Carvedilol 12.5 mg [Coreg 12.5 mg] 12.5 mg PO BID ALPRAZolam 0.25 MG [xanAX 0.25 MG] 0.25 mg PO TID Levothyroxine Sodium [Euthyrox] 150 tab PO 0600 Potassium Chloride 10 meq PO BID Benazepril HCl [Lotensin] 40 mg PO DAILY Cyanocobalamin (Vitamin B-12) [Vitamin B-12] 1,000 mcg SL DAILY #30 tablet Cholecalciferol (Vitamin D3) [Vitamin D] 50,000 unit PO UD Albuterol 2.5 mg/3 ml Neb [Proventil 2.5 mg/3 ml Neb] 2.5 mg IH Q6H PRN PRN PRN Reason: Shortness Of Breath Aspirin EC 325 mg [Ecotrin 325 MG] 325 mg PO DAILY tablet Hydrocodone/Acetaminophen [Hydrocodone-Acetamin 10-325 mg] 1 ea PO Q4HPRN PRN PRN Reason: Pain And/Or Fever Atorvastatin Calcium 40 mg PO DAILY Carbamazepine 200 mg [Tegretol 200 MG] 200 mg PO TID@0800,1200,1600 Nicotine 14 mg [Nicoderm Cq 14 mg] 14 mg TD DAILY Furosemide 40 mg [Lasix 40 MG] 80 mg PO DAILY Follow up with: NADIA SHEFFIELD FNP [Primary Care Provider] - 08/06/23 11:00 am ROSE MONTERROSO FNP [ALLIED HEALTH PROFESSION STAFF] - 08/19/23 1:15 pm (at [facility]) LYNDA THOMPSON [ACTIVE STAFF] - 1 Week
[2023-07-31 11:40] VITALS: BP 170/74; PULSE 87; RESP 20; TEMP 96.4
[2023-08-01] MEDS ORDERED: VITAMIN D2 PO SCH (10:00)
== END 2023-07-31 13:36 | disposition home health service (06) ==
LOC: ED 17:33 → MED SURG 22:28
PROVIDERS: ADMIT Internal Medicine; ATTEND Internal Medicine
DX: J96.02 Acute respiratory failure with hypercapnia (principal); J44.1 Chronic obstructive pulmonary disease with (acute) exacerbation; I10 Essential (primary) hypertension; F41.9 Anxiety disorder, unspecified; E66.9 Obesity, unspecified; G93.40 Encephalopathy, unspecified; G47.33 Obstructive sleep apnea (adult) (pediatric); F17.200 Nicotine dependence, unspecified, uncomplicated; Z79.899 Other long term (current) drug therapy; Z99.81 Dependence on supplemental oxygen
CPT/HCPCS: 0241U; 36415; 36600; 71045; 71260; 80053; 81001; 82375; 82803; 83880; 84484; 85025; 87040; 93005; 94002; 94003; 94640; 94760; 94762; 96374; 99284; 99291; Q3014; 93268; J0456; J1650; J1956; J2060; J2919; A9270-GY; G0378

== ENCOUNTER 2023-08-10 17:39 | Emergency (ER) | payer MEDICARE ==
[2023-08-10 17:49] VITALS: TEMP 96.9; O2SAT 96
[2023-08-10 18:22] LABS: BASOPHIL % 0.6 % (0.1-1.2); Basophil (Absolute #) 0.06 x10^3/uL (0.01-0.08); Eosinophil % 2.5 % (0.7-5.8); Eosinophil (Absolute #) 0.24 x10^3/uL (0.04-0.36); Hematocrit 29.4 % (34.1-44.9); Hemoglobin 8.7 g/dL (11.2-15.7); IMMATURE GRAN # 0.12 x10^3u/L (0.001-0.031); IMMATURE GRAN % 1.3 % (0.001-0.429); Lymphocytes % 20.9 % (19.3-51.7); Mean Corpuscular Hemoglobin 26.9 pg (25.6-32.2); Mean Corpuscular Hgb Concent. 29.6 g/dL (32.2-35.5); Monocyte (Absolute #) 0.95 x10^3/uL (0.24-0.86); Monocytes % 9.9 % (4.7-12.5); Neutrophil % 64.8 % (34.0-71.1); Platelet Count 217 x10^3/uL (182-369); Red Blood Count 3.23 x10^6/uL (3.93-5.22); Red Cell Distribution Width 16.9 % (11.7-14.4); White Blood Count 9.6 x10^3/uL (3.98-10.04)
[2023-08-10 19:03] LABS: ALBUMIN 3.4 g/dL (3.5-5.0); ALKALINE PHOSPHATASE 89 U/L (38-126); BLOOD UREA NITROGEN 11 mg/dL (7-17); CHLORIDE 96 mmol/L (98-107); Calcium 8.7 mg/dL (8.4-10.2); Creatinine 1 0.77 mg/dL (0.52-1.04); EST GLOMERULAR FILTRATION RATE 87.2 ML/MIN; Glucose 122 mg/dL (74-106); Potassium 4.3 mmol/L (3.5-5.1); SGOT/AST 25 U/L (14-36); SGPT/ALT 19 U/L (0-35); SODIUM 139 mmol/L (135-145); TROPONIN < 0.012 ng/mL (0.000-0.033); Total Protein 6.1 g/dL (6.3-8.2)
[2023-08-10 19:10] LABS: Carbon Dioxide 36 mmol/L (22-30)
[2023-08-10 19:11] LABS: ANION GAP 11.3 MEQ/L (5-15)
[2023-08-10 19:22] LABS: Appearance Clear (Clear); Bacteria None Seen /HPF (None Seen); Bilirubin Negative (Negative); Blood Negative (Negative); Epithelial Cells None Seen /HPF (None Seen); Glucose, Urine Negative (Negative); Ketones Trace (Negative); Leukocyte Esterase Negative (Negative); Nitrite Negative (Negative); Protein,Urine Dip 30 (Negative); RBC 0-2 /HPF (0-5); Specific Gravity >=1.030 (1.005-1.030)
[2023-08-10 19:25] LABS: ADD URINE CULTURE? ORDERED SEPARATELY (NO)
--- NOTE | 2023-08-10 19:46 | ERPHSYRPT ---
- History of Present Illness Source: patient, EMS Exam Limitations: other (Poor historian) Patient Subjective Stated Complaint: pt here for multi fall over the last 2 days, she was at [facility] sat and has a walking boot palced to left foot for a sprain, she denies loc but states she did hit her head, Triage Nursing Assessment: pt arrived per ems alert and oriented, resp easy, o2 in place as per home, no cough, skin w/d/p. has tenderness to head, abrasions to forhead and nose. pt bruising to left foot with some swelling, has swelling to right foot she states is normal for her. bruising to left forearm Physician History: 63-year-old female with history of multiple falls over the last 3 days because her right lower extremity is giving out on her due to chronic right knee pain. Patient was seen at [facility] 2 days ago for the same problem and discharge. Patient did hit her head and has a mild headache but there was no loss of conscious. She complains of a headache, mild cervical pain, and right pretibial pain. Patient is chronically on 3 L O2 nasal cannula due to COPD and continued tobacco abuse. Patient denies chest pain, abdominal pain, cervical pain, thoracic spine pain, lumbar spine pain, hip pain, left lower extremity pain, and bilateral upper extremity pain. Occurred: other ( Multiple falls her last 3 days) Reason for Fall: fell from standing pos ( chronic right lower extremity weakness and pain) Injuries/Pain Location: head, neck Loss of Consciousness: no loss of consciousness Quality: aching Severity of Pain-Max: moderate Severity of Pain-Current: moderate Modifying Factors: Improves With: movement Allergies/Adverse Reactions: ceftriaxone Allergy (Verified 07/29/23 17:36) Home Medications: ARIPiprazole [Aripiprazole] 10 mg PO HS 01/11/20 [History] Duloxetine HCl 30 mg [Cymbalta 30 MG Capsule] 120 mg PO DAILY 01/11/20 [History] Pregabalin [Lyrica] 300 mg PO BID 01/11/20 [History] Tizanidine HCl 4 mg [Zanaflex 4 MG] 4 mg PO Q8HPRN PRN 01/11/20 [History] Trazodone HCl 50 mg [Desyrel 50 mg] 200 mg PO HS 06/30/20 [History] ALPRAZolam 0.25 MG [xanAX 0.25 MG] 0.25 mg PO TID 03/06/21 [History] Carvedilol 12.5 mg [Coreg 12.5 mg] 12.5 mg PO BID 03/06/21 [History] Levothyroxine Sodium [Euthyrox] 150 tab PO 0600 07/04/21 [History] Potassium Chloride 10 meq PO BID 08/28/21 [History] Benazepril HCl [Lotensin] 40 mg PO DAILY 09/12/21 [History] Albuterol 2.5 mg/3 ml Neb [Proventil 2.5 mg/3 ml Neb] 2.5 mg IH Q6H PRN PRN 07/08/22 [History] Cholecalciferol (Vitamin D3) [Vitamin D] 50,000 unit PO UD 07/08/22 [History] Atorvastatin Calcium 40 mg PO DAILY 10/05/22 [History] Hydrocodone/Acetaminophen [Hydrocodone-Acetamin 10-325 mg] 1 ea PO Q4HPRN PRN 10/05/22 [History] Carbamazepine 200 mg [Tegretol 200 MG] 200 mg PO TID@0800,1200,1600 02/07/23 [History] Nicotine 14 mg [Nicoderm Cq 14 mg] 14 mg TD DAILY 02/07/23 [History] Furosemide 40 mg [Lasix 40 MG] 80 mg PO DAILY 07/30/23 [History] Hx Tetanus, Diphtheria Vaccination/Date Given: No Hx Influenza Vaccination/Date Given: Yes Hx Pneumococcal Vaccination/Date Given: Yes Immunizations Up to Date: Yes Travel Risk - International Travel Have you traveled outside of the country in past 3 weeks: No - Emerging Infectious Disease Are you exhibiting symptoms associated with any current EIDs: No - Review of Systems Constitutional: No Symptoms Eyes: No Symptoms Ears, Nose, & Throat: No Symptoms Respiratory: No Symptoms Cardiac: No Symptoms Abdominal/Gastrointestinal: No Symptoms Genitourinary Symptoms: No Symptoms Skin: No Symptoms Neurological: No Symptoms Psychological: No Symptoms Endocrine: No Symptoms Hematologic/Lymphatic: No Symptoms Immunological/Allergic: No Symptoms - Past Medical History Pertinent Past Medical History: Yes Neurological History: No Pertinent History ENT History: Cataracts Cardiac History: High Cholesterol, Hypertension Respiratory History: COPD, Emphysema Endocrine Medical History: Hypoglycemia Musculoskeletal History: No Pertinent History GI Medical History: No Pertinent History History: No Pertinent History Psycho-Social History: Anxiety, Depression Female Reproductive Disorders: No Pertinent History Other Medical History: trigeminal neuralgia - Past Surgical History Past Surgical History: Yes Neuro Surgical History: No Pertinent History Cardiac: No Pertinent History Respiratory: No Pertinent History Gastrointestinal: Appendectomy Genitourinary: No Pertinent History Musculoskeletal: Orthopedic Surgery Female Surgical History: No Pertinent History Other Surgical History: elbow surgery. skin cancer removed. right foot surgery - 12/27/21 - Social History Smoking Status: Former smoker How long have you smoked: 25 Exposure to second hand smoke: No Drug Use: none Patient Lives Alone: Yes - Social Determinants of Health Will the patient participate in the screening: Declined to provide - Nursing Vital Signs Nursing Vital Signs: Initial Vital Signs Temperature 96.9 F 08/10/23 17:48 Pulse Rate 74 08/10/23 17:48 Respiratory Rate 22 08/10/23 17:48 Blood Pressure 92/55 08/10/23 17:48 O2 Sat by Pulse Oximetry 96 08/10/23 17:48 Pain Scale Pain Intensity 3 Borderline hypotension - [place] Coma Score Best Eye Response ([place]): (4) open spontaneously Best Verbal Response ([place]): (5) oriented Best Motor Response ([place]): (6) obeys commands [place] Total: 15 - Physical Exam General Appearance: no apparent distress Head Injury: tenderness ( glabellar abrasions and tenderness palpation) Eye Exam: PERRL/EOMI, eyes nml inspection ENT Exam: airway nml, No evidence of ENT injury, No clear fluid (ears), No clear fluid (nose) Neck Exam: supple ( mild C-spine tenderness palpation) Respiratory/Chest Exam: normal breath sounds, No respiratory distress Cardiovascular Exam: normal heart sounds, regular rate/rhythm, normal peripheral pulses, No murmur Gastrointestinal Exam: soft, normal bowel sounds, No tenderness Back Exam: normal inspection, vertebral tenderness ( no T or L-spine tenderness palpation) Extremity Exam: pelvis stable, pain with movement, other ( Right pretibial tenderness palpation without edema, deformity, or ecchymosis. Right foot with chronic Postsurgical deformity but nontender to palpation.), No motor deficit Neurologic Exam: alert, oriented x 3, cooperative, sitecore developer II-XII nml as tested, normal mood/affect, nml cerebellar function, sensation nml Skin Exam: normal color, warm, dry SpO2 Interpretation: normal SpO2: 96 O2 Delivery: Nasal Cannula - Course Nursing assessment & vital signs reviewed: Yes EKG Interpreted by Me: RATE ( normal sinus rhythm/rate 71/normal QT-QTc/no acute ST segment changes/interpreted contemporaneously per ER physician.) - Radiology Exams Lower Leg X-ray Interpretation: Interpreted by me (Right tib-fib without acute fracture, old hardware noted.) - CT Exams Cervical Spine CT Interpretation: Discussed w/radiologist ( normal variant nonunited posterior arch of C1/ degenerative disc disease) Head CT Interpretation: Discussed w/radiologist ( nothing acute per radiologist) Ordered Tests: Active Orders 24 hr Category Date Time Status EKG-ER Only STAT Care 08/10/23 18:01 Completed CERVICAL SPINE WO CONTRAST [CT] Stat Exams 08/10/23 17:58 Taken HEAD WITHOUT CONTRAST [CT] Stat Exams 08/10/23 17:58 Taken LOWER LEG Stat Exams 08/10/23 17:59 Taken CBC W DIFF Stat Lab 08/10/23 18:05 Completed CMP Stat Lab 08/10/23 18:05 Completed CULTURE,URINE Stat Lab 08/10/23 18:48 Received TROPONIN Q4H Lab 08/10/23 18:05 Completed UA W/RFX UR CULTURE Stat Lab 08/10/23 18:48 Completed Lab/Rad Data: Laboratory Result Diagrams 08/10/23 18:05 08/10/23 18:05 Laboratory Results 08/10/23 08/10/23 08/10/23 Range/Units 18:48 18:05 18:05 WBC 9.6 (3.98-10.04) x10^3/uL RBC 3.23 L (3.93-5.22) x10^6/uL Hgb 8.7 L (11.2-15.7) g/dL Hct 29.4 L (34.1-44.9) % MCV 91.0 (79.4-94.8) fL MCH 26.9 (25.6-32.2) pg MCHC 29.6 L (32.2-35.5) g/dL RDW 16.9 H (11.7-14.4) % Plt Count 217 (182-369) x10^3/uL MPV 9.0 L (9.4-12.3) fL Gran % 64.8 (34.0-71.1) % Immature Gran % (Auto) 1.3 H (0.001-0.429) % Nucleat RBC Rel Count 0.0 (0.00-0.2) % Eos # (Auto) 0.24 (0.04-0.36) x10^3/uL Immature Gran # (Auto) 0.12 H (0.001-0.031) x10^3u/L Absolute Lymphs (auto) 2.00 (1.18-3.74) x10^3/uL Absolute Monos (auto) 0.95 H (0.24-0.86) x10^3/uL Absolute Nucleated RBC 0.00 (0.00-0.012) x10^3u/L Lymphocytes % 20.9 (19.3-51.7) % Monocytes % 9.9 (4.7-12.5) % Eosinophils % 2.5 (0.7-5.8) % Basophils % 0.6 (0.1-1.2) % Absolute Granulocytes 6.20 H (1.56-6.13) x10^3/uL Basophils # 0.06 (0.01-0.08) x10^3/uL Sodium 139 (135-145) mmol/L Potassium 4.3 (3.5-5.1) mmol/L Chloride 96 L (98-107) mmol/L Carbon Dioxide 36 H (22-30) mmol/L Anion Gap 11.3 (5-15) MEQ/L BUN 11 (7-17) mg/dL Creatinine 0.77 (0.52-1.04) mg/dL Estimated GFR 87.2 ML/MIN Glucose 122 H (74-106) mg/dL Calcium 8.7 (8.4-10.2) mg/dL Total Bilirubin 0.30 (0.2-1.3) mg/dL AST 25 (14-36) U/L ALT 19 (0-35) U/L Alkaline Phosphatase 89 (38-126) U/L Troponin I < 0.012 (0.000-0.033) ng/mL Serum Total Protein 6.1 L (6.3-8.2) g/dL Albumin 3.4 L (3.5-5.0) g/dL Urine Color Dark Yellow A (Yellow) Urine Appearance Clear (Clear) Urine pH 6.0 (4.6-8.0) Ur Specific [place] >=1.030 A (1.005-1.030) Urine Protein 30 (Negative) Urine Glucose (UA) Negative (Negative) mg/dL Urine Ketones Trace A (Negative) Urine Blood Negative (Negative) Urine Nitrite Negative (Negative) Urine Bilirubin Negative (Negative) Urine Urobilinogen 1.0 A (0.2) mg/dL Ur Leukocyte Esterase Negative (Negative) U Hyaline Cast (Auto) 3-5 A (0-2) /LPF Urine Microscopic RBC 0-2 (0-5) /HPF Urine Microscopic WBC 3-5 (0-5) /HPF Ur Epithelial Cells None Seen (None Seen) /HPF Urine Bacteria None Seen (None Seen) /HPF Urine Culture Reflexed ORDERED SEPARATELY (NO) - Progress Progress: improved Progress Note: 08/11/23 01:59 Nursing note vital signs reviewed. No further housing insecurity noted. 08/11/23 02:00 All lab results thoroughly reviewed and shared with patient. CT of the head and cervical spine thoroughly reviewed and shared with patient. X-ray of right tib-fib interpreted per ER physician and results shared with patient. Patient seems to be having with falls due to deconditioning and chronic right lower extremity weakness. She does have a chronic anemia which appears to be stable at this time. Patient has no interest in rehab or mcc placement at this time. Oxygen saturation is good on 3 L O2 nasal cannula which she is chronically on. Discharged in stable condition with instructions to follow up with her PCP, ice to contused areas for 12 to 24 hours, and return to the ER for increasing pain, any focal weakness, or temperature greater 100.5. Neurologic exam within normal limits during her entire stay without any focal weakness. 08/11/23 02:01 Counseled pt/family regarding: lab results, diagnosis, need for follow-up, rad results Medical Desision Making - Independent Historian Additional History obtained from: EMS - Diagnostic Testing Diagnostic test were ordered, analyzed, and reviewed by me: Yes Radiological Interpretation: Interpreted by me, Reviewed by me - Risk of complications The pt has a mod risk of morbidity or mortality based on: Need for prescription drug management - Departure Departure Disposition: Home Clinical Impression: Minor head injury, Cervical strain, Muscular deconditioning Contusion of right lower extremity Qualifiers: Encounter type: initial encounter Qualified Code(s): S80.11XA - Contusion of right lower leg, initial encounter Condition: Stable Critical Care Time: No Referrals: NADIA SHEFFIELD FNP [Primary Care Provider] - Follow up/PCP as directed Instructions: Contusion (DC), Preventing falls in adults, Minor Head Injury, Adult ED, Cervical Sprain ED Additional Instructions: Continue home pain medication Ice to contused areas for 12 to 24-hour Follow-up with your family MD in the morning Return to ER for any new signs or symptoms.
[2023-08-10 20:08] VITALS: BP 127/66; PULSE 75; RESP 22
--- NOTE | 2023-08-11 08:37 | XRAY ---
Indication: Forehead bruising fall. Multiple contiguous axial images obtained through the head without contrast. Comparison: February 06, 2023 Normal appearing brain parenchyma, ventricles, and bony calvarium for patient's age. Visualized paranasal sinuses and mastoid air cells are clear. Impression: Continued normal CT head without contrast exam.
--- NOTE | 2023-08-11 08:41 | XRAY ---
Indication: Status post fall. Multiple contiguous axial images obtained through the cervical spine. Sagittal and coronal reformatted images obtained. Comparison: None Anatomic variant for nonunited posterior arch C1. Axial images negative for acute fracture, suspicious bony lesions, or spinal canal stenosis. Minimal/mild multilevel degenerative changes greatest at C5-C6. Also mild/moderate multilevel bilateral degenerative facet hypertrophy, left greater than right. Sagittal and coronal reformatted images demonstrates normal alignment. Mild C5-C7 disc space narrowing. No acute compression fracture, subluxation, or jumped facet. Normal appearing craniocervical junction. Visualized noncontrasted soft tissues demonstrates mild bilateral chronic calcifications. Impression: Chronic findings including multilevel degenerative changes and bilateral carotid calcifications. Negative for acute fracture/subluxation.
--- NOTE | 2023-08-11 08:53 | XRAY ---
Indication: Pain following fall. Comparison: None 2 view right lower leg demonstrates distal tibia/fibula and incompletely visualized foot orthopedic hardware with suspected loosening transverse tibia/fibula screw and fractured 2nd tarsometatarsal screw unchanged in appearance to right ankle/foot exam July 06, 2023. Chronic findings including osteopenia, heel spurs, and faint vascular calcifications. No acute bony, articular, or soft tissue abnormalities.
== END 2023-08-10 20:14 | disposition home or self-care (01) ==
LOC: ED 17:39
DX: S09.90XA Unspecified injury of head, initial encounter (principal); S16.1XXA Strain of muscle, fascia and tendon at neck level, initial encounter; S80.11XA Contusion of right lower leg, initial encounter; W19.XXXA Unspecified fall, initial encounter; M62.81 Muscle weakness (generalized); R51.9 Headache, unspecified; E78.5 Hyperlipidemia, unspecified; I10 Essential (primary) hypertension; Z79.899 Other long term (current) drug therapy; Z99.81 Dependence on supplemental oxygen
CPT/HCPCS: 36415; 70450; 72125; 73590; 80053; 81001; 84484; 85025; 87086; 93005; 99284

== ENCOUNTER 2023-10-21 16:26 | Emergency (ER) | payer MEDICARE, OTHER ==
--- NOTE | 2023-10-21 17:01 | ERPHSYRPT ---
- History of Present Illness Time Seen by Provider: 10/21/23 16:55 Source: patient Exam Limitations: clinical condition Patient Subjective Stated Complaint: pt here for pain to left foot, she states she here knees give out and she twisted left foot, Triage Nursing Assessment: pt arrived per ems alert, but drowsey at times, resp easy and shallow at times, pt incouraged to take a deep breath o2 at 6 lnc ,pt has swelling to left foot, ice in place Timing/Duration: today Severity: mild Modifying Factors: Improves With: movement Associated Symptoms: denies symptoms Allergies/Adverse Reactions: ceftriaxone Allergy (Verified 10/21/23 16:28) Home Medications: ARIPiprazole [Aripiprazole] 10 mg PO HS 01/11/20 [History] Duloxetine HCl 30 mg [Cymbalta 30 MG Capsule] 120 mg PO DAILY 01/11/20 [History] Pregabalin [Lyrica] 300 mg PO BID 01/11/20 [History] Tizanidine HCl 4 mg [Zanaflex 4 MG] 4 mg PO Q8HPRN PRN 01/11/20 [History] Trazodone HCl 50 mg [Desyrel 50 mg] 200 mg PO HS 06/30/20 [History] ALPRAZolam 0.25 MG [xanAX 0.25 MG] 0.25 mg PO TID 03/06/21 [History] Carvedilol 12.5 mg [Coreg 12.5 mg] 12.5 mg PO BID 03/06/21 [History] Levothyroxine Sodium [Euthyrox] 150 tab PO 0600 07/04/21 [History] Potassium Chloride 10 meq PO BID 08/28/21 [History] Benazepril HCl [Lotensin] 40 mg PO DAILY 09/12/21 [History] Albuterol 2.5 mg/3 ml Neb [Proventil 2.5 mg/3 ml Neb] 2.5 mg IH Q6H PRN PRN 07/08/22 [History] Cholecalciferol (Vitamin D3) [Vitamin D] 50,000 unit PO UD 07/08/22 [History] Atorvastatin Calcium 40 mg PO DAILY 10/05/22 [History] Hydrocodone/Acetaminophen [Hydrocodone-Acetamin 10-325 mg] 1 ea PO Q4HPRN PRN 10/05/22 [History] Carbamazepine 200 mg [Tegretol 200 MG] 200 mg PO TID@0800,1200,1600 02/07/23 [History] Nicotine 14 mg [Nicoderm Cq 14 mg] 14 mg TD DAILY 02/07/23 [History] Furosemide 40 mg [Lasix 40 MG] 80 mg PO DAILY 07/30/23 [History] Hx Tetanus, Diphtheria Vaccination/Date Given: Yes Hx Influenza Vaccination/Date Given: Yes Hx Pneumococcal Vaccination/Date Given: Yes Immunizations Up to Date: Yes Travel Risk - International Travel Have you traveled outside of the country in past 3 weeks: No - Emerging Infectious Disease Are you exhibiting symptoms associated with any current EIDs: No - Review of Systems Eyes: No Symptoms Ears, Nose, & Throat: No Symptoms Respiratory: No Symptoms Cardiac: No Symptoms Abdominal/Gastrointestinal: No Symptoms Musculoskeletal: Joint Pain - Past Medical History Pertinent Past Medical History: Yes Neurological History: No Pertinent History ENT History: Cataracts Cardiac History: High Cholesterol, Hypertension Respiratory History: COPD, Emphysema Endocrine Medical History: Hypoglycemia Musculoskeletal History: No Pertinent History GI Medical History: No Pertinent History History: No Pertinent History Psycho-Social History: Anxiety, Depression Female Reproductive Disorders: No Pertinent History Other Medical History: trigeminal neuralgia - Past Surgical History Past Surgical History: Yes Neuro Surgical History: No Pertinent History Cardiac: No Pertinent History Respiratory: No Pertinent History Gastrointestinal: Appendectomy Genitourinary: No Pertinent History Musculoskeletal: Orthopedic Surgery Female Surgical History: No Pertinent History Other Surgical History: elbow surgery. skin cancer removed. right foot surgery - 12/27/21 - Social History Smoking Status: Current some day smoker How long have you smoked: 25 Exposure to second hand smoke: No Drug Use: none Patient Lives Alone: Yes - Social Determinants of Health Will the patient participate in the screening: Declined to provide - Nursing Vital Signs Nursing Vital Signs: Initial Vital Signs Temperature 97.1 F 10/21/23 16:30 Pulse Rate 92 H 10/21/23 16:30 Respiratory Rate 20 10/21/23 16:30 Blood Pressure 90/52 10/21/23 16:30 O2 Sat by Pulse Oximetry 988 H 10/21/23 16:30 Pain Scale Pain Intensity 0 - Physical Exam General Appearance: no apparent distress Eye Exam: PERRL/EOMI Ears, Nose, Throat Exam: normal ENT inspection Neck Exam: normal inspection Respiratory Exam: other (coarse bs noted bilaterally) Cardiovascular Exam: regular rate/rhythm Gastrointestinal/Abdomen Exam: soft, normal bowel sounds Skin Exam: normal color, warm SpO2: 988 Ordered Tests: Active Orders 24 hr Category Date Time Status Oxygen-ED Only Nasal Cannula 5 lpm Care 10/21/23 16:44 Active ANKLE (3 VIEWS) Stat Exams 10/21/23 16:57 Taken FOOT (MINIMUM 3 VIEWS) Stat Exams 10/21/23 16:57 Taken - Progress Progress Note: Patient was seen and evaluated for pain to the left foot and ankle x-ray of the left foot reveals fracture over the fourth digit there is no fracture over the left ankle this was reviewed by the radiologist, Patient was updated with the results and informed of the need for follow-up she will be discharged home with a splint she has to follow-up with her primary care provider and orthopedic surgeon she is to take Tylenol and Motrin as needed 10/21/23 19:23 Medical Desision Making - Discussion of managment Reviewed:: Need for additional workup Agreed on:: need for follow-up Will see patient: In office - Departure Departure Disposition: Home Clinical Impression: Foot fracture, left, Ankle sprain Condition: Stable Critical Care Time: No Instructions: Foot Fracture (DC), Foot Sprain (DC), Contusion (DC) Additional Instructions: please remain non weight bearing till released by your doctor
[2023-10-21 18:18] VITALS: TEMP 97.4
--- NOTE | 2023-10-21 20:30 | XRAY ---
Indication: Pain. Comparison: None 3 view left ankle demonstrates osteopenia, small heel spurs, and mild anterolateral soft tissue swelling. No other bony, articular, or soft tissue abnormalities. Foot reported separately.
--- NOTE | 2023-10-21 20:32 | XRAY ---
Indication: Pain. Comparison: None 3 nonweightbearing views left foot demonstrates nondisplaced acute fracture shaft 5th proximal phalanx. Query nondisplaced cuboid corner fracture on oblique view. Elsewhere osteopenia, remote appearing 1st/2nd tarsometatarsal Lisfranc fracture,, small heel spurs, and tiny cuboid accessory ossicle.
[2023-10-21 20:38] VITALS: BP 134/76; PULSE 76; RESP 17; O2SAT 96
== END 2023-10-21 21:00 | disposition home or self-care (01) ==
LOC: ED 16:26
DX: S92.515A Nondisplaced fracture of proximal phalanx of left lesser toe(s), initial encounter for closed fracture (principal); S93.402A Sprain of unspecified ligament of left ankle, initial encounter; X50.0XXA Overexertion from strenuous movement or load, initial encounter; E78.5 Hyperlipidemia, unspecified; I10 Essential (primary) hypertension; Z79.899 Other long term (current) drug therapy; Z72.0 Tobacco use
CPT/HCPCS: 73610; 73630; 99283; L4386

== ENCOUNTER 2023-10-28 15:44 | Emergency (ER) | payer MEDICARE, OTHER ==
[2023-10-28 15:51] VITALS: TEMP 97.7
[2023-10-28 16:32] LABS: Absolute Neutrophil Ct (ANC) 7.48 x10^3/uL (1.56-6.13); BASOPHIL % 0.5 % (0.1-1.2); Basophil (Absolute #) 0.05 x10^3/uL (0.01-0.08); Eosinophil % 2.3 % (0.7-5.8); Eosinophil (Absolute #) 0.24 x10^3/uL (0.04-0.36); Hematocrit 35.2 % (34.1-44.9); Hemoglobin 10.4 g/dL (11.2-15.7); IMMATURE GRAN % 0.9 % (0.001-0.429); Lymphocyte (Absolute #) 1.85 x10^3/uL (1.18-3.74); Lymphocytes % 17.5 % (19.3-51.7); Mean Cell Volume 93.1 fL (79.4-94.8); Mean Corpuscular Hemoglobin 27.5 pg (25.6-32.2); Mean Corpuscular Hgb Concent. 29.5 g/dL (32.2-35.5); Mean Platelet Volume 9.5 fL (9.4-12.3); Monocyte (Absolute #) 0.88 x10^3/uL (0.24-0.86); Monocytes % 8.3 % (4.7-12.5); Neutrophil % 70.5 % (34.0-71.1); Platelet Count 226 x10^3/uL (182-369); Red Blood Count 3.78 x10^6/uL (3.93-5.22); Red Cell Distribution Width 17.4 % (11.7-14.4); White Blood Count 10.6 x10^3/uL (3.98-10.04)
[2023-10-28 16:48] LABS: ALBUMIN 3.9 g/dL (3.5-5.0); BILIRUBIN,TOTAL 0.3 mg/dL (0.2-1.3); Calcium 8.8 mg/dL (8.4-10.2); Creatinine 1 0.97 mg/dL (0.52-1.04); EST GLOMERULAR FILTRATION RATE 66.1 ML/MIN; Potassium 3.3 mmol/L (3.5-5.1); Total Protein 6.9 g/dL (6.3-8.2)
[2023-10-28] MEDS ORDERED: Sodium Chloride 0.9% 1000 ML 1,000 ML ONE (16:57)
[2023-10-28 16:59] LABS: ANION GAP 10.3 MEQ/L (5-15)
[2023-10-28] MEDS: Sodium Chloride 0.9% 1000 ML 1,000 ML IV SCH (16:59)
[2023-10-28 17:14] LABS: INFLUENZA A NEGATIVE (NEGATIVE); INFLUENZA B NEGATIVE (NEGATIVE); RESPIRATORY SYNCTIAL VIRUS NEGATIVE (NEGATIVE); SARS-CoV-2 Xpert Express NEGATIVE (NEGATIVE)
[2023-10-28 17:26] VITALS: O2SAT 100
--- NOTE | 2023-10-28 17:33 | ERPHSYRPT ---
- History of Present Illness Time Seen by Provider: 10/28/23 15:55 Source: patient, family Exam Limitations: no limitations Patient Subjective Stated Complaint: Pt states "I went to my dr today for a sleep study follow up and I got short of breath and pee'd myself and I am just weak. I keep having accidents." Triage Nursing Assessment: Pt presented alert and oriented X 3, skin wpd. Pt ambulates with a slow gait and a limp due to a broken left foot. PT able to speak in clear full sentences. PT resting comfortably on the bed. Physician History: This is a morbidly obese 63-year-old white female patient who was brought to the emergency department by the patient's pin cleaner after her visit with the primary care provider for a sleep study. Patient became short of breath and was weak. She also has frequent UTIs and had urinary incontinence at the office and therefore patient was sent to the emergency department. Patient denies chest pain. She denies shortness of breath at this time. She is 99% on oxygenation level on her usual 3 L of oxygen. Patient has a history of hyperlipidemia, hypertension, COPD on 3 L of oxygen via nasal cannula, anxiety issues, hypothyroidism, and trigeminal neuralgia Timing/Duration: today Severity: mild Associated Symptoms: shortness of breath (Now), weakness, other (Frequent UTIs and urinary incontinence), No chest pain (Chronic) Allergies/Adverse Reactions: gabapentin Allergy (Severe, Verified 10/28/23 15:51) pain ceftriaxone Allergy (Verified 10/28/23 10:23) Home Medications: ARIPiprazole [Aripiprazole] 10 mg PO HS 01/11/20 [History] Duloxetine HCl 30 mg [Cymbalta 30 MG Capsule] 120 mg PO DAILY 01/11/20 [History] Pregabalin [Lyrica] 300 mg PO BID 01/11/20 [History] Trazodone HCl 50 mg [Desyrel 50 mg] 200 mg PO HS 06/30/20 [History] ALPRAZolam 0.25 MG [xanAX 0.25 MG] 5 mg PO DAILY 03/06/21 [History] Carvedilol 12.5 mg [Coreg 12.5 mg] 12.5 mg PO BID 03/06/21 [History] Levothyroxine Sodium [Euthyrox] 150 tab PO 0600 07/04/21 [History] Potassium Chloride 10 meq PO BID 08/28/21 [History] Albuterol 2.5 mg/3 ml Neb [Proventil 2.5 mg/3 ml Neb] 2.5 mg IH Q6H PRN PRN 07/08/22 [History] Cholecalciferol (Vitamin D3) [Vitamin D] 50,000 unit PO UD 07/08/22 [History] Atorvastatin Calcium 40 mg PO DAILY 10/05/22 [History] Furosemide 40 mg [Lasix 40 MG] 80 mg PO BID 07/30/23 [History] ALPRAZolam 0.25 MG [xanAX 0.25 MG] 0.25 mg PO TID 10/28/23 [History] Aspirin EC 81 mg [Ecotrin 81 mg] 81 mg PO DAILY 10/28/23 [History] Fluticasone/Umeclidin/Vilanter [Trelegy Ellipta 200-62.5-25] 1 each IH UD 10/28/23 [History] Miscellaneous Medication Order 1 ea UD 10/28/23 [History] Prednisone 20 mg [Deltasone 20 mg] 20 mg PO DAILY 10/28/23 [History] Torsemide 100 mg PO BID 10/28/23 [History] Trazodone HCl 200 mg PO HS 10/28/23 [History] Hx Tetanus, Diphtheria Vaccination/Date Given: Yes Hx Influenza Vaccination/Date Given: Yes Hx Pneumococcal Vaccination/Date Given: Yes Immunizations Up to Date: No Travel Risk - International Travel Have you traveled outside of the country in past 3 weeks: No - Emerging Infectious Disease Are you exhibiting symptoms associated with any current EIDs: Yes Symptoms: Shortness of Breath - Review of Systems Constitutional: Weakness Eyes: No Symptoms Ears, Nose, & Throat: No Symptoms Respiratory: Dyspnea Cardiac: No Symptoms Abdominal/Gastrointestinal: No Symptoms Genitourinary Symptoms: No Symptoms Musculoskeletal: No Symptoms Skin: No Symptoms Neurological: No Symptoms Psychological: No Symptoms Endocrine: No Symptoms Hematologic/Lymphatic: No Symptoms Immunological/Allergic: No Symptoms All Other Systems: Reviewed and Negative - Past Medical History Pertinent Past Medical History: Yes Neurological History: No Pertinent History ENT History: Cataracts Cardiac History: High Cholesterol, Hypertension Respiratory History: COPD, Emphysema Endocrine Medical History: Hypoglycemia Musculoskeletal History: No Pertinent History GI Medical History: No Pertinent History History: No Pertinent History Psycho-Social History: Anxiety, Depression Female Reproductive Disorders: No Pertinent History Other Medical History: trigeminal neuralgia, hyperthyroidism, - Past Surgical History Past Surgical History: Yes Neuro Surgical History: No Pertinent History Cardiac: No Pertinent History Respiratory: No Pertinent History Gastrointestinal: Appendectomy Genitourinary: No Pertinent History Musculoskeletal: Orthopedic Surgery Female Surgical History: No Pertinent History Other Surgical History: elbow surgery. skin cancer removed. right foot surgery - 12/27/21 - Social History Smoking Status: Current some day smoker How long have you smoked: 25 Exposure to second hand smoke: No Drug Use: none Patient Lives Alone: Yes - Social Determinants of Health Will the patient participate in the screening: Declined to provide - Nursing Vital Signs Nursing Vital Signs: Initial Vital Signs Temperature 97.7 F 10/28/23 15:45 Pulse Rate 57 L 10/28/23 15:45 Respiratory Rate 22 10/28/23 15:45 Blood Pressure 112/51 10/28/23 15:45 O2 Sat by Pulse Oximetry 91 L 10/28/23 15:45 Pain Scale Pain Intensity 0 - Physical Exam General Appearance: no apparent distress, alert, anxiety, obese Eye Exam: PERRL/EOMI, eyes nml inspection Ears, Nose, Throat Exam: normal ENT inspection, moist mucous membranes Neck Exam: normal inspection, non-tender, supple, full range of motion Respiratory Exam: normal breath sounds, lungs clear, airway intact, No chest tenderness, No respiratory distress Cardiovascular Exam: regular rate/rhythm, normal heart sounds, normal peripheral pulses Gastrointestinal/Abdomen Exam: soft, normal bowel sounds, No tenderness Pelvic Exam: not done Rectal Exam: not done Back Exam: normal inspection, normal range of motion, No CVA tenderness, No vertebral tenderness Extremity Exam: normal inspection, normal range of motion, pelvis stable Neurologic Exam: alert, oriented x 3, cooperative, rn care transition II-XII nml as tested, normal mood/affect, sensation nml Skin Exam: normal color, warm, dry Lymphatic Exam: No adenopathy SpO2 Interpretation: normal SpO2: 100 O2 Delivery: Nasal Cannula (3 L of oxygen via nasal cannula.) - Course Nursing assessment & vital signs reviewed: Yes EKG Interpreted by Me: RATE (54), Sinus Rhythm, NORMAL AXIS, NORMAL INTERVALS, NORMAL QRS, Other (No acute ischemic changes on today's twelve-lead EKG. QTc is 439) Ordered Tests: Active Orders 24 hr Category Date Time Status EKG-ER Only STAT Care 10/28/23 16:11 Active IV Insertion STAT Care 10/28/23 16:11 Active BLOOD CULTURE Stat Lab 10/28/23 16:24 Received CBC W DIFF Stat Lab 10/28/23 16:20 Completed CMP Stat Lab 10/28/23 16:20 Completed CULTURE,URINE Stat Lab 10/28/23 17:24 Received Lactic Acid Stat Lab 10/28/23 16:16 Completed Lactic Acid Stat Lab 10/28/23 18:21 Received MONO SCREEN Stat Lab 10/28/23 16:20 Completed TROPONIN Q4H Lab 10/28/23 16:20 Completed TROPONIN Q4H Lab 10/28/23 20:15 Ordered TROPONIN Q4H Lab 10/29/23 00:15 Ordered UA W/RFX UR CULTURE Stat Lab 10/28/23 17:24 Completed Medication Summary Generic Name Dose Route Start Last Admin Trade Name Freq PRN Reason Stop Dose Admin Sodium Chloride 1,000 mls @ 100 mls/hr 10/28/23 16:15 10/28/23 16:59 Sodium Chloride 0.9% 1000 Ml IV 11/27/23 16:14 100 mls/hr .Q10H KIKO Administration Levofloxacin 500 mg 10/28/23 19:02 Levofloxacin 500 Mg Tablet PO 10/28/23 19:03 STAT ONE Lab/Rad Data: Laboratory Result Diagrams 10/28/23 16:20 10/28/23 16:20 Laboratory Results 10/28/23 10/28/23 10/28/23 Range/Units Unknown 17:24 16:20 WBC (3.98-10.04) x10^3/uL RBC (3.93-5.22) x10^6/uL Hgb (11.2-15.7) g/dL Hct (34.1-44.9) % MCV (79.4-94.8) fL MCH (25.6-32.2) pg MCHC (32.2-35.5) g/dL RDW (11.7-14.4) % Plt Count (182-369) x10^3/uL MPV (9.4-12.3) fL Gran % (34.0-71.1) % Immature Gran % (Auto) (0.001-0.429) % Nucleat RBC Rel Count (0.00-0.2) % Eos # (Auto) (0.04-0.36) x10^3/uL Immature Gran # (Auto) (0.001-0.031) x10^3u/L Absolute Lymphs (auto) (1.18-3.74) x10^3/uL Absolute Monos (auto) (0.24-0.86) x10^3/uL Absolute Nucleated RBC (0.00-0.012) x10^3u/L Lymphocytes % (19.3-51.7) % Monocytes % (4.7-12.5) % Eosinophils % (0.7-5.8) % Basophils % (0.1-1.2) % Absolute Granulocytes (1.56-6.13) x10^3/uL Basophils # (0.01-0.08) x10^3/uL Sodium (135-145) mmol/L Potassium (3.5-5.1) mmol/L Chloride (98-107) mmol/L Carbon Dioxide (22-30) mmol/L Anion Gap (5-15) MEQ/L BUN (7-17) mg/dL Creatinine (0.52-1.04) mg/dL Estimated GFR ML/MIN Glucose (74-106) mg/dL Lactic Acid (0.4-2.0) Calcium (8.4-10.2) mg/dL Total Bilirubin (0.2-1.3) mg/dL AST (14-36) U/L ALT (0-35) U/L Alkaline Phosphatase (38-126) U/L Troponin I (0.000-0.033) ng/mL Serum Total Protein (6.3-8.2) g/dL Albumin (3.5-5.0) g/dL Urine Color Yellow (Yellow) Urine Appearance Clear (Clear) Urine pH 6.5 (4.6-8.0) Ur Specific Mead 1.010 (1.005-1.030) Urine Protein Negative (Negative) Urine Glucose (UA) Negative (Negative) mg/dL Urine Ketones Negative (Negative) Urine Blood Negative (Negative) Urine Nitrite Negative (Negative) Urine Bilirubin Negative (Negative) Urine Urobilinogen 1.0 A (0.2) mg/dL Ur Leukocyte Esterase Moderate A (Negative) U Hyaline Cast (Auto) NONE SEEN (0-2) /LPF Urine Microscopic RBC 0-2 (0-5) /HPF Urine Microscopic WBC 21-50 A (0-5) /HPF Ur Epithelial Cells None Seen (None Seen) /HPF Urine Bacteria None Seen (None Seen) /HPF Urine Culture Reflexed YES (NO) Monoscreen NEGATIVE (NEGATIVE) Influenza Type A Ag NEGATIVE (NEGATIVE) Influenza Type B Ag NEGATIVE (NEGATIVE) RSV (PCR) NEGATIVE (NEGATIVE) SARS-CoV-2 (PCR) NEGATIVE (NEGATIVE) 10/28/23 10/28/23 10/28/23 Range/Units 16:20 16:20 16:20 WBC 10.6 H (3.98-10.04) x10^3/uL RBC 3.78 L (3.93-5.22) x10^6/uL Hgb 10.4 L (11.2-15.7) g/dL Hct 35.2 (34.1-44.9) % MCV 93.1 (79.4-94.8) fL MCH 27.5 (25.6-32.2) pg MCHC 29.5 L (32.2-35.5) g/dL RDW 17.4 H (11.7-14.4) % Plt Count 226 (182-369) x10^3/uL MPV 9.5 (9.4-12.3) fL Gran % 70.5 (34.0-71.1) % Immature Gran % (Auto) 0.9 H (0.001-0.429) % Nucleat RBC Rel Count 0.0 (0.00-0.2) % Eos # (Auto) 0.24 (0.04-0.36) x10^3/uL Immature Gran # (Auto) 0.10 H (0.001-0.031) x10^3u/L Absolute Lymphs (auto) 1.85 (1.18-3.74) x10^3/uL Absolute Monos (auto) 0.88 H (0.24-0.86) x10^3/uL Absolute Nucleated RBC 0.00 (0.00-0.012) x10^3u/L Lymphocytes % 17.5 L (19.3-51.7) % Monocytes % 8.3 (4.7-12.5) % Eosinophils % 2.3 (0.7-5.8) % Basophils % 0.5 (0.1-1.2) % Absolute Granulocytes 7.48 H (1.56-6.13) x10^3/uL Basophils # 0.05 (0.01-0.08) x10^3/uL Sodium 135 (135-145) mmol/L Potassium 3.3 L (3.5-5.1) mmol/L Chloride 82 L (98-107) mmol/L Carbon Dioxide 46 H (22-30) mmol/L Anion Gap 10.3 (5-15) MEQ/L BUN 15 (7-17) mg/dL Creatinine 0.97 (0.52-1.04) mg/dL Estimated GFR 66.1 ML/MIN Glucose 108 H (74-106) mg/dL Lactic Acid (0.4-2.0) Calcium 8.8 (8.4-10.2) mg/dL Total Bilirubin 0.30 (0.2-1.3) mg/dL AST 24 (14-36) U/L ALT 21 (0-35) U/L Alkaline Phosphatase 113 (38-126) U/L Troponin I < 0.012 (0.000-0.033) ng/mL Serum Total Protein 6.9 (6.3-8.2) g/dL Albumin 3.9 (3.5-5.0) g/dL Urine Color (Yellow) Urine Appearance (Clear) Urine pH (4.6-8.0) Ur Specific Mead (1.005-1.030) Urine Protein (Negative) Urine Glucose (UA) (Negative) mg/dL Urine Ketones (Negative) Urine Blood (Negative) Urine Nitrite (Negative) Urine Bilirubin (Negative) Urine Urobilinogen (0.2) mg/dL Ur Leukocyte Esterase (Negative) U Hyaline Cast (Auto) (0-2) /LPF Urine Microscopic RBC (0-5) /HPF Urine Microscopic WBC (0-5) /HPF Ur Epithelial Cells (None Seen) /HPF Urine Bacteria (None Seen) /HPF Urine Culture Reflexed (NO) Monoscreen (NEGATIVE) Influenza Type A Ag (NEGATIVE) Influenza Type B Ag (NEGATIVE) RSV (PCR) (NEGATIVE) SARS-CoV-2 (PCR) (NEGATIVE) 10/28/23 Range/Units 16:16 WBC (3.98-10.04) x10^3/uL RBC (3.93-5.22) x10^6/uL Hgb (11.2-15.7) g/dL Hct (34.1-44.9) % MCV (79.4-94.8) fL MCH (25.6-32.2) pg MCHC (32.2-35.5) g/dL RDW (11.7-14.4) % Plt Count (182-369) x10^3/uL MPV (9.4-12.3) fL Gran % (34.0-71.1) % Immature Gran % (Auto) (0.001-0.429) % Nucleat RBC Rel Count (0.00-0.2) % Eos # (Auto) (0.04-0.36) x10^3/uL Immature Gran # (Auto) (0.001-0.031) x10^3u/L Absolute Lymphs (auto) (1.18-3.74) x10^3/uL Absolute Monos (auto) (0.24-0.86) x10^3/uL Absolute Nucleated RBC (0.00-0.012) x10^3u/L Lymphocytes % (19.3-51.7) % Monocytes % (4.7-12.5) % Eosinophils % (0.7-5.8) % Basophils % (0.1-1.2) % Absolute Granulocytes (1.56-6.13) x10^3/uL Basophils # (0.01-0.08) x10^3/uL Sodium (135-145) mmol/L Potassium (3.5-5.1) mmol/L Chloride (98-107) mmol/L Carbon Dioxide (22-30) mmol/L Anion Gap (5-15) MEQ/L BUN (7-17) mg/dL Creatinine (0.52-1.04) mg/dL Estimated GFR ML/MIN Glucose (74-106) mg/dL Lactic Acid 2.4 H (0.4-2.0) Calcium (8.4-10.2) mg/dL Total Bilirubin (0.2-1.3) mg/dL AST (14-36) U/L ALT (0-35) U/L Alkaline Phosphatase (38-126) U/L Troponin I (0.000-0.033) ng/mL Serum Total Protein (6.3-8.2) g/dL Albumin (3.5-5.0) g/dL Urine Color (Yellow) Urine Appearance (Clear) Urine pH (4.6-8.0) Ur Specific Mead (1.005-1.030) Urine Protein (Negative) Urine Glucose (UA) (Negative) mg/dL Urine Ketones (Negative) Urine Blood (Negative) Urine Nitrite (Negative) Urine Bilirubin (Negative) Urine Urobilinogen (0.2) mg/dL Ur Leukocyte Esterase (Negative) U Hyaline Cast (Auto) (0-2) /LPF Urine Microscopic RBC (0-5) /HPF Urine Microscopic WBC (0-5) /HPF Ur Epithelial Cells (None Seen) /HPF Urine Bacteria (None Seen) /HPF Urine Culture Reflexed (NO) Monoscreen (NEGATIVE) Influenza Type A Ag (NEGATIVE) Influenza Type B Ag (NEGATIVE) RSV (PCR) (NEGATIVE) SARS-CoV-2 (PCR) (NEGATIVE) - Progress Progress: improved, re-examined Progress Note: 10/28/23 17:40 My medical decision making and the assignment of moderate complexity to this patient's medical issue today is based on review of the patient's past medical history, review of the patient's medication list, reviewed patient drug allergy list, history present illness and physical findings on examination. Workup in this patient includes placement of intravenous line, CBC, twelve-lead EKG, BNP, troponin level, CMP, urinalysis, viral swabs, monotest. Differential diagnosis includes but is not limited to viral illness, urinary tract infection, dehydration, electrolyte abnormalities, anemia, myocardial infarction, arrhythmia 10/28/23 19:05 I interpreted the patient's laboratory data results. Based on the laboratory data results, patient has a significant urinary tract infection. Her twelve- lead EKG shows no acute ischemic changes and her troponin level is normal. 10/28/23 19:05 Patient denies chest pain. Patient denies shortness of breath. Counseled pt/family regarding: lab results, diagnosis Medical Desision Making - Diagnostic Testing Diagnostic test were ordered, analyzed, and reviewed by me: Yes - Risk of complications The pt has a mod risk of morbidity or mortality based on: Need for prescription drug management - Departure Departure Disposition: Home Clinical Impression: Weakness Condition: Stable Critical Care Time: No Referrals: NADIA SHEFFIELD FNP [Primary Care Provider] - Follow up/PCP as directed Additional Instructions: Drink plenty fluids. Take your medication as prescribed. Call your primary care provider tomorrow to make arrangements for follow-up appointment for further evaluation management. Prescriptions: Levofloxacin [Levaquin 500 MG Tablet] 500 mg PO DAILY #7 tablet
[2023-10-28 18:30] LABS: Appearance Clear (Clear); Bacteria None Seen /HPF (None Seen); Bilirubin Negative (Negative); Blood Negative (Negative); Epithelial Cells None Seen /HPF (None Seen); Glucose, Urine Negative (Negative); Hyaline Casts NONE SEEN /LPF (0-2); Ketones Negative (Negative); Leukocyte Esterase Moderate (Negative); Nitrite Negative (Negative); Ph 6.5 (4.6-8.0); Protein,Urine Dip Negative (Negative); RBC 0-2 /HPF (0-5); WBC 21-50 /HPF (0-5)
[2023-10-28 18:31] LABS: ADD URINE CULTURE? YES (NO)
[2023-10-28] MEDS ORDERED: Levofloxacin 500 MG Tablet ONE (19:06)
[2023-10-28] MEDS: Levofloxacin 500 MG Tablet PO ONE (19:08)
[2023-10-28 19:46] VITALS: BP 116/50; PULSE 78; RESP 16
== END 2023-10-28 19:48 | disposition home or self-care (01) ==
LOC: ED 15:44
DX: R53.1 Weakness (principal); N39.0 Urinary tract infection, site not specified; R06.02 Shortness of breath; E78.5 Hyperlipidemia, unspecified; I10 Essential (primary) hypertension; Z79.52 Long term (current) use of systemic steroids; Z79.899 Other long term (current) drug therapy; Z99.81 Dependence on supplemental oxygen; Z72.0 Tobacco use
CPT/HCPCS: 0241U; 36415; 80053; 81001; 83605; 84484; 85025; 86308; 87040; 87077; 87086; 87186; 93005; 99284; A9270-GY

== ENCOUNTER 2023-11-03 14:23 | Inpatient (IN) | payer MEDICARE, OTHER ==
--- NOTE | 2023-11-03 14:40 | ERPHSYRPT ---
- History of Present Illness Time Seen by Provider: 11/03/23 14:34 Source: patient Exam Limitations: no limitations Patient Subjective Stated Complaint: Pt states "I have COPD and I was in the shower and had a panic attack and started to have a hard time breathing." Triage Nursing Assessment: PT presented alert and oriented X 3, skin pwd. Pt able to speak in clear full sentences. PT receiving a duo neb at this tome. PT resting comfortably on the bed. Physician History: 63-year-old female history of COPD on 3 to 4 L home O2 presents to our ED via EMS with history of COPD intubated in the past presents to our ED for evaluation of shortness of breath. Patient states she was taking a shower when she developed shortness of breath. No nausea vomiting no chest pain. Symptoms are typical of her usual COPD exacerbation. Patient is still a smoker. Upon EMS arrival patient was hypoxic in the 70s. Patient received Solu-Medrol and albuterol and route. Patient currently receiving a albuterol neb treatment. She feels much better. Patient advised that she is currently on Levaquin for urinary tract infection. Portions of this note were created with voice recognition technology. There may be grammatical, spelling, punctuation or sound alike errors Timing/Duration: today Activities at Onset: other (Taking a shower) Severity of Dyspnea-Max: severe Severity of Dyspnea-Current: moderate Possible Cause: unknown cause Modifying Factors: Improves With: albuterol inhaler Associated Symptoms: anxiety Allergies/Adverse Reactions: gabapentin Allergy (Severe, Verified 10/30/23 15:46) pain ceftriaxone Allergy (Verified 10/30/23 15:46) Home Medications: ARIPiprazole [Aripiprazole] 10 mg PO HS 01/11/20 [History] Duloxetine HCl 30 mg [Cymbalta 30 MG Capsule] 120 mg PO DAILY 01/11/20 [History] Pregabalin [Lyrica] 300 mg PO BID 01/11/20 [History] Potassium Chloride 40 meq PO DAILY 08/28/21 [History] Atorvastatin Calcium 40 mg PO DAILY 10/05/22 [History] ALPRAZolam 0.25 MG [xanAX 0.25 MG] 0.25 mg PO TID 10/28/23 [History] Miscellaneous Medication Order 1 ea [facility] 10/28/23 [History] Prednisone 20 mg [Deltasone 20 mg] 10 mg PO DAILY 10/28/23 [History] Trazodone HCl 200 mg PO HS 10/28/23 [History] Carvedilol [Coreg ] 6.25 mg PO BID 10/30/23 [History] Losartan Potassium 50 mg [Cozaar 50 MG] 50 mg PO DAILY 10/30/23 [History] Nicotine 21 mg [Nicoderm CQ 21 MG] 21 mg TOP DAILY 10/30/23 [History] metOLazone [Metolazone] 5 mg PO DIRECTIONS UNKNOWN 10/30/23 [History] Hx Tetanus, Diphtheria Vaccination/Date Given: Yes Hx Influenza Vaccination/Date Given: Yes Hx Pneumococcal Vaccination/Date Given: Yes Immunizations Up to Date: No Travel Risk - International Travel Have you traveled outside of the country in past 3 weeks: No - Emerging Infectious Disease Are you exhibiting symptoms associated with any current EIDs: Yes Symptoms: Cough: New Onset, Shortness of Breath - Review of Systems Constitutional: No Symptoms, No Fever, No Chills Eyes: No Symptoms Ears, Nose, & Throat: No Symptoms Respiratory: No Symptoms, No Cough, No Dyspnea Cardiac: No Symptoms, No Chest Pain, No Edema, No Syncope Abdominal/Gastrointestinal: No Symptoms, No Abdominal Pain, No Nausea, No Vomiting, No Diarrhea Genitourinary Symptoms: No Symptoms, No Dysuria Musculoskeletal: No Symptoms, No Back Pain, No Neck Pain Skin: No Symptoms, No Rash Neurological: No Symptoms, No Dizziness, No Focal Weakness, No Sensory Changes Psychological: No Symptoms Endocrine: No Symptoms Hematologic/Lymphatic: No Symptoms Immunological/Allergic: No Symptoms All Other Systems: Reviewed and Negative - Past Medical History Pertinent Past Medical History: Yes Neurological History: Peripheral Neuropathy ENT History: Cataracts Cardiac History: Congestive Heart Failure, High Cholesterol, Hypertension Respiratory History: CHF, COPD, Emphysema, Sleep Apnea, Other Endocrine Medical History: Hyperthyroidism, Hypoglycemia Musculoskeletal History: Arthritis GI Medical History: Other History: No Pertinent History Psycho-Social History: Anxiety, Depression Female Reproductive Disorders: No Pertinent History Other Medical History: trigeminal neuralgia, sepsis, hypokalemia, COVID, hypoxemia, b12 deficiency, wounds, hypercarbia, right ankle fracture, left foot fracture, renal cyst, hyponatremia - Past Surgical History Past Surgical History: Yes Neuro Surgical History: No Pertinent History Cardiac: No Pertinent History Respiratory: No Pertinent History Gastrointestinal: Appendectomy Genitourinary: No Pertinent History Musculoskeletal: Orthopedic Surgery Female Surgical History: No Pertinent History Other Surgical History: elbow surgery, skin cancer removed, right foot surgery - 12/27/21 - Social History Smoking Status: Current some day smoker How long have you smoked: 30 years Exposure to second hand smoke: No Drug Use: none Patient Lives Alone: Yes - Social Determinants of Health Will the patient participate in the screening: Yes Do you worry about a steady place to live?: No Do you have any problems with any of the following?: No known problems In the past 12 months,have you had to go without utilities?: No Transportation Issues: No Has anyone in your support network made you feel unsafe?: No Have you or anyone in your house had to go without enough: No Comment: Currently utilizing [facility] - Nursing Vital Signs Nursing Vital Signs: Initial Vital Signs Temperature 97.0 F 11/03/23 14:24 Pulse Rate 74 11/03/23 14:24 Respiratory Rate 18 11/03/23 14:24 Blood Pressure 138/76 11/03/23 14:24 O2 Sat by Pulse Oximetry 100 11/03/23 14:24 Pain Scale Pain Intensity 0 - Physical Exam General Appearance: no apparent distress, alert Eye Exam: PERRL/EOMI Ears, Nose, Throat Exam: hearing grossly normal, normal ENT inspection, normal pharynx Neck Exam: normal inspection, supple Respiratory Exam: diminished breath sounds, prolonged expirations Cardiovascular/Chest Exam: normal heart sounds, regular rate/rhythm Abdominal/Gastrointestinal Exam: soft, No tenderness, No distention, No mass Extremity Exam: non-tender, normal range of motion, normal inspection, no calf tenderness, no pedal edema Neurologic Exam: alert, oriented x 3, cooperative, emergency dispatcher II-XII nml as tested, sensation nml, No motor deficits Skin Exam: normal color, warm, No dry Lymphatic Exam: No adenopathy SpO2 Interpretation: normal SpO2: 100 O2 Delivery: Room Air - Course Nursing assessment & vital signs reviewed: Yes EKG Interpreted by Me: RATE (70), Sinus Rhythm, NORMAL AXIS, NORMAL INTERVALS, NORMAL QRS - Radiology Exams Chest X-ray Interpretation: Teleradiologist Report (No acute findings) Ordered Tests: Active Orders 24 hr Category Date Time Status Wiener Packer STAT Care 11/03/23 14:35 Active EKG-ER Only STAT Care 11/03/23 14:35 Active IV Insertion STAT Care 11/03/23 14:35 Active Pulse Oximetry (ED) STAT Care 11/03/23 14:35 Active CHEST 1 VIEW (PORTABLE) Stat Exams 11/03/23 14:53 Completed CBC W DIFF Stat Lab 11/03/23 15:10 Completed CMP Stat Lab 11/03/23 15:10 Received TROPONIN Q4H Lab 11/03/23 15:10 Completed TROPONIN Q4H Lab 11/03/23 18:45 Ordered TROPONIN Q4H Lab 11/03/23 22:45 Ordered Lab/Rad Data: Laboratory Result Diagrams 11/03/23 15:10 11/03/23 15:10 Laboratory Results 11/03/23 11/03/23 11/03/23 Range/Units 15:10 15:10 15:10 WBC 9.9 (3.98-10.04) x10^3/uL RBC 3.81 L (3.93-5.22) x10^6/uL Hgb 10.4 L (11.2-15.7) g/dL Hct 36.4 (34.1-44.9) % MCV 95.5 H (79.4-94.8) fL MCH 27.3 (25.6-32.2) pg MCHC 28.6 L (32.2-35.5) g/dL RDW 17.2 H (11.7-14.4) % Plt Count 207 (182-369) x10^3/uL MPV 9.5 (9.4-12.3) fL Gran % 74.3 H (34.0-71.1) % Immature Gran % (Auto) 1.2 H (0.001-0.429) % Nucleat RBC Rel Count 0.0 (0.00-0.2) % Eos # (Auto) 0.23 (0.04-0.36) x10^3/uL Immature Gran # (Auto) 0.12 H (0.001-0.031) x10^3u/L Absolute Lymphs (auto) 1.55 (1.18-3.74) x10^3/uL Absolute Monos (auto) 0.57 (0.24-0.86) x10^3/uL Absolute Nucleated RBC 0.00 (0.00-0.012) x10^3u/L Lymphocytes % 15.7 L (19.3-51.7) % Monocytes % 5.8 (4.7-12.5) % Eosinophils % 2.3 (0.7-5.8) % Basophils % 0.7 (0.1-1.2) % Absolute Granulocytes 7.35 H (1.56-6.13) x10^3/uL Basophils # 0.07 (0.01-0.08) x10^3/uL Sodium 138 (135-145) mmol/L Potassium 4.3 (3.5-5.1) mmol/L Chloride 88 L (98-107) mmol/L Carbon Dioxide Pending Anion Gap Pending BUN 9 (7-17) mg/dL Creatinine 0.73 (0.52-1.04) mg/dL Estimated GFR 92.9 ML/MIN Glucose 123 H (74-106) mg/dL Calcium 9.0 (8.4-10.2) mg/dL Total Bilirubin 0.40 (0.2-1.3) mg/dL AST 22 (14-36) U/L ALT 18 (0-35) U/L Alkaline Phosphatase 130 H (38-126) U/L Troponin I < 0.012 (0.000-0.033) ng/mL Serum Total Protein 6.8 (6.3-8.2) g/dL Albumin 3.7 (3.5-5.0) g/dL - Progress Progress: improved Air Movement: good Progress Note: 63-year-old female presents to emergency department via EMS for evaluation of shortness of breath. Patient has history of COPD and requires 3 to 4 L nasal cannula at home. Upon EMS arrival patient was hypoxic. Patient received Solu-Medrol and albuterol neb treatment and routes. Symptoms significantly improved. Hypoxia went up from 74% to 95% upon arrival to our ED. Physical exam revealed diminished breath sounds and prolonged expiratory phase. Chest x- ray shows no acute pathology. Patient improved but requires additional treatm ent. Patient will be admitted for further evaluation and treatment. Management discussed with hospitalist who accepts admission to observation at 3:50 PM. Plan of care discussed with patient. She agrees to admission at [facility] for further evaluation and treatment. Portions of this note were created with voice recognition technology. There may be grammatical, spelling, punctuation or sound alike errors Complexity of problem addressed is moderate acute complicated. No critical care time. Complex of data reviewed and analyzed is extensive. Management discussed with hospitalist. Test ordered test reviewed results analyzed and correlated clinically with history and physical exam. Risk of complication and or risk of morbidity/mortality of patient management is high. Patient requires hospitalization for further evaluation and treatment. Vital stable. Time spent admit patient approximately 20 minutes. Plan of care established for shared decision making. No social determinants of health present to impede follow-up. Portions of this note were created with voice recognition technology. There may be grammatical, spelling, punctuation or sound alike errors 11/03/23 15:53 11/03/23 15:54 Blood Culture(s) Obtained: No Antibiotics given: No Counseled pt/family regarding: lab results, diagnosis, need for follow-up - Departure Departure Disposition: Observation Clinical Impression: Hypoxia, COPD exacerbation Condition: Stable Critical Care Time: No Referrals: NADIA SHEFFIELD FNP [Primary Care Provider] - Follow up/PCP as directed Instructions: Chronic Obstructive Pulmonary Disease
[2023-11-03 15:19] LABS: Absolute Neutrophil Ct (ANC) 7.35 x10^3/uL (1.56-6.13); BASOPHIL % 0.7 % (0.1-1.2); Basophil (Absolute #) 0.07 x10^3/uL (0.01-0.08); Eosinophil % 2.3 % (0.7-5.8); Eosinophil (Absolute #) 0.23 x10^3/uL (0.04-0.36); Hematocrit 36.4 % (34.1-44.9); Hemoglobin 10.4 g/dL (11.2-15.7); IMMATURE GRAN # 0.12 x10^3u/L (0.001-0.031); IMMATURE GRAN % 1.2 % (0.001-0.429); Lymphocyte (Absolute #) 1.55 x10^3/uL (1.18-3.74); Lymphocytes % 15.7 % (19.3-51.7); Mean Cell Volume 95.5 fL (79.4-94.8); Mean Corpuscular Hemoglobin 27.3 pg (25.6-32.2); Mean Corpuscular Hgb Concent. 28.6 g/dL (32.2-35.5); Mean Platelet Volume 9.5 fL (9.4-12.3); Monocyte (Absolute #) 0.57 x10^3/uL (0.24-0.86); Monocytes % 5.8 % (4.7-12.5); Neutrophil % 74.3 % (34.0-71.1); Platelet Count 207 x10^3/uL (182-369); Red Blood Count 3.81 x10^6/uL (3.93-5.22); Red Cell Distribution Width 17.2 % (11.7-14.4); White Blood Count 9.9 x10^3/uL (3.98-10.04)
[2023-11-03 15:32] LABS: ALBUMIN 3.7 g/dL (3.5-5.0); BILIRUBIN,TOTAL 0.4 mg/dL (0.2-1.3); Creatinine 1 0.73 mg/dL (0.52-1.04); EST GLOMERULAR FILTRATION RATE 92.9 ML/MIN; Potassium 4.3 mmol/L (3.5-5.1); Total Protein 6.8 g/dL (6.3-8.2)
--- NOTE | 2023-11-03 15:32 | XRAY ---
Indication: Short of breath. Negative CT chest pulmonary embolus exam October 30, 2023. Comparison: October 30, 2023 Portable chest unchanged again demonstrating minimal left lung base subsegmental atelectasis/scarring. Remaining heart and lungs unremarkable. No new/acute findings.
[2023-11-03 15:54] LABS: INFLUENZA A NEGATIVE (NEGATIVE); INFLUENZA B NEGATIVE (NEGATIVE); RESPIRATORY SYNCTIAL VIRUS NEGATIVE (NEGATIVE); SARS-CoV-2 Xpert Express NEGATIVE (NEGATIVE)
[2023-11-03 15:59] LABS: Slide Review 1 YES
[2023-11-03 16:03] LABS: ANION GAP 9.3 MEQ/L (5-15)
[2023-11-03] MEDS ORDERED: DUONEB 0.5-3 MG/3 ml Neb IH ONE (16:12)
[2023-11-03] MEDS: DUONEB 0.5-3 MG/3 ml Neb IH ONE (16:13)
--- NOTE | 2023-11-03 16:20 | PCM.HP ---
<JAKOB RAYGOZA - Last Filed: 11/03/23 17:02> History of Present Illness - Chief Complaint Chief Complaint: sob Date: 11/03/23 History of Present Illness: is a 63 year old female with a pmhx of COPD (3-4L baseline oxygen),CHF, HLD, HTN, GUIDO, emphysema, hypothyroidism, anxiety/panic disorder, and peripheral neuropathy who presented to [facility] ED 11/03/23 with complaints of progressive shortness of breath. Patient states she suffers from panic disorder and has had anxiety regarding upcoming scheduled surgery with Dr. Blas (podiatry) of her left ankle on 11/05/23. She reports that she got in the shower this morning and experienced a panic attack and subsequent progressive shortness of breath. She normally wears 3-4L of oxygen and uses a nebulizer at home but states her panic attacks often exacerbate her COPD and she was not able to catch her breath at home and called the ambulance. She states she has had numerous ED visits (10/27 and 10/29) for weakness and shortness of breath. CT chest reviewed from 10/30/23 showing no acute findings/negative for PE. Patient did have recent sleep study with CPAP pending. During interview, she is at her baseline oxygen of 4L and dyspnea is improved. Upon arrival via EMS patient hypoxic with spo2 in the 70's. EKG NS, Normal [place], no ST elevation/deviations. CXR demonstrates no acute findings. Lab findings remarkable for macrocytic anemia with hgb at 10.4, hypochloremia, and hypercapni a. Respiratory panel negative. Patient was given duonebs in ED. She received solumedrol and albuterol via EMS. Patient improved but admitted for copd exacerbation. - Review of Systems Constitutional: Weakness Eyes: No Symptoms Ears, Nose, & Throat: No Symptoms Respiratory: Short Of Breath, Wheezing Cardiac: No Symptoms Abdominal/Gastrointestinal: No Symptoms Genitourinary Symptoms: No Symptoms Musculoskeletal: Joint Pain (left ankle ) Skin: No Symptoms Neurological: No Symptoms Psychological: Anxiety Endocrine: No Symptoms Hematologic/Lymphatic: No Symptoms Immunological/Allergic: No Symptoms Medications & Allergies Home Medications: Home Medication List ARIPiprazole [Aripiprazole] 10 mg PO HS 01/11/20 [History Confirmed 11/03/23] Duloxetine HCl 30 mg [Cymbalta 30 MG Capsule] 120 mg PO DAILY 01/11/20 [History Confirmed 11/03/23] Pregabalin [Lyrica] 300 mg PO BID 01/11/20 [History Confirmed 11/03/23] Potassium Chloride 40 meq PO DAILY 08/28/21 [History Confirmed 11/03/23] Atorvastatin Calcium 40 mg PO DAILY 10/05/22 [History Confirmed 11/03/23] ALPRAZolam 0.25 MG [xanAX 0.25 MG] 0.25 mg PO TID 10/28/23 [History Confirmed 11/03/23] Levofloxacin [Levaquin 500 MG Tablet] 500 mg PO DAILY #7 tablet 10/28/23 [Rx Confirmed 11/03/23] Prednisone 20 mg [Deltasone 20 mg] 20 mg PO DAILY 10/28/23 [History Confirmed 11/03/23] Trazodone HCl 200 mg PO HS 10/28/23 [History Confirmed 11/03/23] Carvedilol [Coreg ] 6.25 mg PO BID 10/30/23 [History Confirmed 11/03/23] Losartan Potassium 50 mg [Cozaar 50 MG] 0.5 tab PO DAILY 10/30/23 [History Confirmed 11/03/23] metOLazone [Metolazone] 5 mg PO UD 10/30/23 [History Confirmed 11/03/23] Furosemide 40 mg [Lasix 40 MG] 80 mg PO BID 11/03/23 [History Confirmed 11/03/23] Levothyroxine Sodium 150 Mcg [Synthroid 150 Mcg] 150 mg PO DAILY 11/03/23 [History Confirmed 11/03/23] Allergies/Adverse Reactions: Allergies Allergy/AdvReac Type Severity Reaction Status Date / Time gabapentin Allergy Severe pain Verified 10/30/23 15:46 ceftriaxone Allergy Verified 10/30/23 15:46 - Past Medical History Past Medical History: Yes Neurological History: Peripheral Neuropathy ENT History: Cataracts Cardiac History: Congestive Heart Failure, High Cholesterol, Hypertension Respiratory History: CHF, COPD, Emphysema, Sleep Apnea, Other Endocrine Medical History: Hyperthyroidism, Hypoglycemia Musculoskelatal History: Arthritis GI Medical History: Other History: No Pertinent History Pyscho-Social History: Anxiety, Depression Reproductive Disorders: No Pertinent History Comment: trigeminal neuralgia, sepsis, hypokalemia, COVID, hypoxemia, b12 def iciency, wounds, hypercarbia, right ankle fracture, left foot fracture, renal cyst, hyponatremia - Past Surgical History Past Surgical History: Yes Neuro Surgical History: No Pertinent History Cardiac History: No Pertinent History Respiratory Surgery: No Pertinent History GI Surgical History: Appendectomy Genitourinary Surgical Hx: No Pertinent History Musculskeletal Surgical Hx: Orthopedic Surgery Female Surgical History: No Pertinent History Other Surgical History: elbow surgery, skin cancer removed, right foot surgery - 12/27/21 - Social History Smoking Status: Current some day smoker How long have you smoked: 30 years Exposure to second hand smoke: No Alcohol: None Drug Use: none - Social Determinants of Health Will the patient participate in the screening: Yes Do you worry about a steady place to live?: No Do you have any problems with any of the following?: No known problems In the past 12 months,have you had to go without utilities?: No Have you or anyone in your house had to go without enough: No Transportation Issues: No Has anyone in your support network made you feel unsafe?: No Comment: Currently utilizing [facility] - Physical Exam Vital Signs: Vital Signs - 24 hr Temp Pulse Resp BP BP Pulse Ox 11/03/23 16:00 70 15 137/68 93 L 11/03/23 15:56 100 11/03/23 15:45 61 16 140/62 91 L 11/03/23 15:36 59 L 19 133/72 95 11/03/23 15:30 58 L 18 136/69 11/03/23 14:56 100 11/03/23 14:24 97.0 F 74 22 138/76 100 General Appearance: no apparent distress Neurologic Exam: alert, oriented x 3, cooperative Eye Exam: PERRL/EOMI Ears, Nose, Throat Exam: normal ENT inspection Neck Exam: normal inspection Respiratory Exam: diminished breath sounds Cardiovascular Exam: regular rate/rhythm, normal heart sounds Gastrointestinal/Abdomen Exam: soft, normal bowel sounds Pelvic Exam: not done Rectal Exam: deferred Back Exam: normal inspection Extremity Exam: other (right charcot foot) Skin Exam: normal color Results - Labs Lab/Micro Results: Lab Results-Last 24 Hours 11/03/23 11/03/23 11/03/23 Range/Units 15:10 15:10 15:10 WBC 9.9 (3.98-10.04) x10^3/uL RBC 3.81 L (3.93-5.22) x10^6/uL Hgb 10.4 L (11.2-15.7) g/dL Hct 36.4 (34.1-44.9) % MCV 95.5 H (79.4-94.8) fL MCH 27.3 (25.6-32.2) pg MCHC 28.6 L (32.2-35.5) g/dL RDW 17.2 H (11.7-14.4) % Plt Count 207 (182-369) x10^3/uL MPV 9.5 (9.4-12.3) fL Gran % 74.3 H (34.0-71.1) % Immature Gran % (Auto) 1.2 H (0.001-0.429) % Nucleat RBC Rel Count 0.0 (0.00-0.2) % Eos # (Auto) 0.23 (0.04-0.36) x10^3/uL Immature Gran # (Auto) 0.12 H (0.001-0.031) x10^3u/L Absolute Lymphs (auto) 1.55 (1.18-3.74) x10^3/uL Absolute Monos (auto) 0.57 (0.24-0.86) x10^3/uL Absolute Nucleated RBC 0.00 (0.00-0.012) x10^3u/L Lymphocytes % 15.7 L (19.3-51.7) % Monocytes % 5.8 (4.7-12.5) % Eosinophils % 2.3 (0.7-5.8) % Basophils % 0.7 (0.1-1.2) % Absolute Granulocytes 7.35 H (1.56-6.13) x10^3/uL Basophils # 0.07 (0.01-0.08) x10^3/uL Sodium 138 (135-145) mmol/L Potassium 4.3 (3.5-5.1) mmol/L Chloride 88 L (98-107) mmol/L Carbon Dioxide 45 H (22-30) mmol/L Anion Gap 9.3 (5-15) MEQ/L BUN 9 (7-17) mg/dL Creatinine 0.73 (0.52-1.04) mg/dL Estimated GFR 92.9 ML/MIN Glucose 123 H (74-106) mg/dL Calcium 9.0 (8.4-10.2) mg/dL Total Bilirubin 0.40 (0.2-1.3) mg/dL AST 22 (14-36) U/L ALT 18 (0-35) U/L Alkaline Phosphatase 130 H (38-126) U/L Troponin I < 0.012 (0.000-0.033) ng/mL Serum Total Protein 6.8 (6.3-8.2) g/dL Albumin 3.7 (3.5-5.0) g/dL Influenza Type A Ag (NEGATIVE) Influenza Type B Ag (NEGATIVE) RSV (PCR) (NEGATIVE) SARS-CoV-2 (PCR) (NEGATIVE) Slides for Path Review YES 11/03/23 Range/Units 15:12 WBC (3.98-10.04) x10^3/uL RBC (3.93-5.22) x10^6/uL Hgb (11.2-15.7) g/dL Hct (34.1-44.9) % MCV (79.4-94.8) fL MCH (25.6-32.2) pg MCHC (32.2-35.5) g/dL RDW (11.7-14.4) % Plt Count (182-369) x10^3/uL MPV (9.4-12.3) fL Gran % (34.0-71.1) % Immature Gran % (Auto) (0.001-0.429) % Nucleat RBC Rel Count (0.00-0.2) % Eos # (Auto) (0.04-0.36) x10^3/uL Immature Gran # (Auto) (0.001-0.031) x10^3u/L Absolute Lymphs (auto) (1.18-3.74) x10^3/uL Absolute Monos (auto) (0.24-0.86) x10^3/uL Absolute Nucleated RBC (0.00-0.012) x10^3u/L Lymphocytes % (19.3-51.7) % Monocytes % (4.7-12.5) % Eosinophils % (0.7-5.8) % Basophils % (0.1-1.2) % Absolute Granulocytes (1.56-6.13) x10^3/uL Basophils # (0.01-0.08) x10^3/uL Sodium (135-145) mmol/L Potassium (3.5-5.1) mmol/L Chloride (98-107) mmol/L Carbon Dioxide (22-30) mmol/L Anion Gap (5-15) MEQ/L BUN (7-17) mg/dL Creatinine (0.52-1.04) mg/dL Estimated GFR ML/MIN Glucose (74-106) mg/dL Calcium (8.4-10.2) mg/dL Total Bilirubin (0.2-1.3) mg/dL AST (14-36) U/L ALT (0-35) U/L Alkaline Phosphatase (38-126) U/L Troponin I (0.000-0.033) ng/mL Serum Total Protein (6.3-8.2) g/dL Albumin (3.5-5.0) g/dL Influenza Type A Ag NEGATIVE (NEGATIVE) Influenza Type B Ag NEGATIVE (NEGATIVE) RSV (PCR) NEGATIVE (NEGATIVE) SARS-CoV-2 (PCR) NEGATIVE (NEGATIVE) Slides for Path Review - Radiology Impressions Radiology Exams & Impressions: Radiology Procedures Category Date Time Status CHEST 1 VIEW (PORTABLE) Stat Exams 11/03/23 14:53 Completed Assessment/Plan (1) Acute respiratory failure with hypoxia Current Visit: Yes Status: Acute Assessment & Plan: -Secondary to COPD exacerbation -Supplemental oxygen with spo2 goal 88-92% 3-4L at baseline -RT eval -nebs q4h scheduled x 3 doses then every 2-4 hours as needed -CXR with no acute findings -Resp viral panel negative -Solumedrol 40mg q8H -Levaquin - already taking -ABG if significant lethargy/hypoxia -continue home trelegy -Chest CT from 10/30/23 reviewed with no acute findings, negative for PE Code(s): J96.01 - ACUTE RESPIRATORY FAILURE WITH HYPOXIA (2) COPD exacerbation Current Visit: Yes Status: Acute Assessment & Plan: -See ARF Code(s): J44.1 - CHRONIC OBSTRUCTIVE PULMONARY DISEASE W (ACUTE) EXACERBATION (3) CHF (congestive heart failure) Current Visit: Yes Status: Acute Assessment & Plan: -No recent echo -EKG unremarkable -CXR negative for cardiopulmonary processes Code(s): I50.9 - HEART FAILURE, UNSPECIFIED (4) UTI (urinary tract infection) Current Visit: Yes Status: Acute Assessment & Plan: -Being treated with levaquin as OP, reviewed ucult from 10/28/23 showing ecoli - sensitive to levaquin will continue as directed Code(s): N39.0 - URINARY TRACT INFECTION, SITE NOT SPECIFIED (5) HTN (hypertension) Current Visit: No Status: Acute Assessment & Plan: -stable continue home meds Code(s): I10 - ESSENTIAL (PRIMARY) HYPERTENSION (6) Anxiety and depression Current Visit: No Status: Chronic Assessment & Plan: -continue home meds Code(s): F41.9 - ANXIETY DISORDER, UNSPECIFIED; F32.A - DEPRESSION, UNSPECIFIED (7) Foot fracture, left Current Visit: No Status: Acute Assessment & Plan: -Reviewed CT LLE from 10/30/23 Impression: 1. Nondisplaced acute fractures proximal 5th phalanx and lateral cuboid. 2. Old nonunited fractures base 1st-3rd metatarsals with 1st tarsometatarsal subluxation. Old displaced fracture anterior calcaneus. 3. Diffuse soft tissue swelling, osteopenia, and posterior/plantar heel spurs. -Podiatry following with planned surgical intervention 11/05/23 - patient states SNF for rehab following -pain control Code(s): S92.902A - UNSP FRACTURE OF LEFT FOOT, INIT ENCNTR FOR CLOSED FRACTURE (8) GUIDO (obstructive sleep apnea) Current Visit: No Status: Chronic Assessment & Plan: -recent sleep study, CPAP pending VTE:bilateral SCD Dispo: 1-2 days Code(s): G47.33 - OBSTRUCTIVE SLEEP APNEA (ADULT) (PEDIATRIC) Telemedicine Encounter - Telemedicine Encounter Telemedicine Encounter: "The entirety of this encounter was performed via Telemedicine" This visit was performed using real-time audio and video connection between my location and thepatients locationwith the assistance of a surrogateat the patients location. Written or verbal consent was obtained from the patient/davy rdian to perform this visit using[employer]Face[employer] ([employer])cine technology. Any patient questions regarding the telemedicine interaction were answered. <CLARISSE REY - Last Filed: 11/03/23 22:14> History of Present Illness - Chief Complaint History of Present Illness: is a 63 year old female. - Physical Exam Vital Signs: Vital Signs - 24 hr Temp Pulse Resp BP BP Pulse Ox 11/03/23 20:00 99.4 F 79 20 148/67 94 L 11/03/23 19:29 78 16 97 11/03/23 17:05 87 20 92 L 11/03/23 16:45 87 11/03/23 16:33 97.0 F 75 20 138/76 94 L 11/03/23 16:16 75 20 94 L 11/03/23 16:15 72 18 146/80 92 L 11/03/23 16:00 70 15 137/68 93 L 11/03/23 15:56 100 11/03/23 15:45 61 16 140/62 91 L 11/03/23 15:36 59 L 19 133/72 95 11/03/23 15:30 58 L 18 136/69 11/03/23 14:56 100 11/03/23 14:24 97.0 F 74 22 138/76 100 Results - Labs Lab/Micro Results: Lab Results-Last 24 Hours 11/03/23 11/03/23 11/03/23 Range/Units 15:10 15:10 15:10 WBC 9.9 (3.98-10.04) x10^3/uL RBC 3.81 L (3.93-5.22) x10^6/uL Hgb 10.4 L (11.2-15.7) g/dL Hct 36.4 (34.1-44.9) % MCV 95.5 H (79.4-94.8) fL MCH 27.3 (25.6-32.2) pg MCHC 28.6 L (32.2-35.5) g/dL RDW 17.2 H (11.7-14.4) % Plt Count 207 (182-369) x10^3/uL MPV 9.5 (9.4-12.3) fL Gran % 74.3 H (34.0-71.1) % Immature Gran % (Auto) 1.2 H (0.001-0.429) % Nucleat RBC Rel Count 0.0 (0.00-0.2) % Eos # (Auto) 0.23 (0.04-0.36) x10^3/uL Immature Gran # (Auto) 0.12 H (0.001-0.031) x10^3u/L Absolute Lymphs (auto) 1.55 (1.18-3.74) x10^3/uL Absolute Monos (auto) 0.57 (0.24-0.86) x10^3/uL Absolute Nucleated RBC 0.00 (0.00-0.012) x10^3u/L Lymphocytes % 15.7 L (19.3-51.7) % Monocytes % 5.8 (4.7-12.5) % Eosinophils % 2.3 (0.7-5.8) % Basophils % 0.7 (0.1-1.2) % Absolute Granulocytes 7.35 H (1.56-6.13) x10^3/uL Basophils # 0.07 (0.01-0.08) x10^3/uL Puncture Site pCO2 (35-45) mmHg pO2 (75-100) mmHg Base Excess (-2.0-2.0) O2 Saturation (94-100) g/dF ABG pH (7.35-7.45) ABG HCO3 (22-28) ABG O2 Sat (Measured) (95-100) % Shabbir Test A-a Gradient a/A Ratio Hemoglobin Carboxyhemoglobin (0.0-6.9) % THgb Methemoglobin (1.4-1.5) % Temperature C POC O2 Flow Rate % Sodium 138 (135-145) mmol/L Potassium 4.3 (3.5-5.1) mmol/L Chloride 88 L (98-107) mmol/L Carbon Dioxide 45 H (22-30) mmol/L Anion Gap 9.3 (5-15) MEQ/L BUN 9 (7-17) mg/dL Creatinine 0.73 (0.52-1.04) mg/dL Estimated GFR 92.9 ML/MIN Glucose 123 H (74-106) mg/dL Calcium 9.0 (8.4-10.2) mg/dL Total Bilirubin 0.40 (0.2-1.3) mg/dL AST 22 (14-36) U/L ALT 18 (0-35) U/L Alkaline Phosphatase 130 H (38-126) U/L Troponin I < 0.012 (0.000-0.033) ng/mL Serum Total Protein 6.8 (6.3-8.2) g/dL Albumin 3.7 (3.5-5.0) g/dL Influenza Type A Ag (NEGATIVE) Influenza Type B Ag (NEGATIVE) RSV (PCR) (NEGATIVE) SARS-CoV-2 (PCR) (NEGATIVE) Slides for Path Review YES 11/03/23 11/03/23 11/03/23 Range/Units 15:12 18:50 21:28 WBC (3.98-10.04) x10^3/uL RBC (3.93-5.22) x10^6/uL Hgb (11.2-15.7) g/dL Hct (34.1-44.9) % MCV (79.4-94.8) fL MCH (25.6-32.2) pg MCHC (32.2-35.5) g/dL RDW (11.7-14.4) % Plt Count (182-369) x10^3/uL MPV (9.4-12.3) fL Gran % (34.0-71.1) % Immature Gran % (Auto) (0.001-0.429) % Nucleat RBC Rel Count (0.00-0.2) % Eos # (Auto) (0.04-0.36) x10^3/uL Immature Gran # (Auto) (0.001-0.031) x10^3u/L Absolute Lymphs (auto) (1.18-3.74) x10^3/uL Absolute Monos (auto) (0.24-0.86) x10^3/uL Absolute Nucleated RBC (0.00-0.012) x10^3u/L Lymphocytes % (19.3-51.7) % Monocytes % (4.7-12.5) % Eosinophils % (0.7-5.8) % Basophils % (0.1-1.2) % Absolute Granulocytes (1.56-6.13) x10^3/uL Basophils # (0.01-0.08) x10^3/uL Puncture Site LRA pCO2 59 H (35-45) mmHg pO2 58 L (75-100) mmHg Base Excess 19.0 H (-2.0-2.0) O2 Saturation 91.4 L (94-100) g/dF ABG pH 7.49 H (7.35-7.45) ABG HCO3 45.0 H* (22-28) ABG O2 Sat (Measured) 93.6 L (95-100) % Shabbir Test y A-a Gradient 125 a/A Ratio 0.32 Hemoglobin 10.5 Carboxyhemoglobin 2.2 (0.0-6.9) % THgb Methemoglobin 0.1 L (1.4-1.5) % Temperature 37.0 C POC O2 Flow Rate 36 % Sodium (135-145) mmol/L Potassium 3.5 (3.5-5.1) mmol/L Chloride (98-107) mmol/L Carbon Dioxide (22-30) mmol/L Anion Gap (5-15) MEQ/L BUN (7-17) mg/dL Creatinine (0.52-1.04) mg/dL Estimated GFR ML/MIN Glucose (74-106) mg/dL Calcium (8.4-10.2) mg/dL Total Bilirubin (0.2-1.3) mg/dL AST (14-36) U/L ALT (0-35) U/L Alkaline Phosphatase (38-126) U/L Troponin I < 0.012 (0.000-0.033) ng/mL Serum Total Protein (6.3-8.2) g/dL Albumin (3.5-5.0) g/dL Influenza Type A Ag NEGATIVE (NEGATIVE) Influenza Type B Ag NEGATIVE (NEGATIVE) RSV (PCR) NEGATIVE (NEGATIVE) SARS-CoV-2 (PCR) NEGATIVE (NEGATIVE) Slides for Path Review - Radiology Impressions Radiology Exams & Impressions: Radiology Procedures Category Date Time Status CHEST 1 VIEW (PORTABLE) Stat Exams 11/03/23 14:53 Completed - Other Procedures and Tests Respiratory Therapy 11/03/23 17:12 Oxygen NASAL CANNULA 6 lpm Respiratory Therapy Assessment DAILY 11/03/23 21:00 BiPap/CPAP ROUTINE Telemedicine Encounter - Telemedicine Encounter Telemedicine Encounter: "The entirety of this encounter was performed via Telemedicine" This visit was performed using real-time audio and video connection between my location and thepatients locationwith the assistance of a surrogateat the patients location. Written or verbal consent was obtained from the patient/guardian to perform this visit using[employer]look[employer]chrMe![employer] Mediatelemedicine technology. Any patient questions regarding the telemedicine interaction were answered. JAMIE Encounter - JAMIE Encounter Attestation JAMIE Encounter Attestation: "IhavepersonallyseenandexTUCKER Macias andeimlievediscussed pertinent aspects of their care with Jakob Casey agree with the history, physical exam (any modifications based on my personal exam will be noted below), assessment, and plan as outlined in original note. Please see immediately below for my summary of findings and additional assessment and plan along with any meaningful corrections/explanations to the Subjective/Objective portions of the JAMIE note will be noted." My portion of the encounter took place via telemedicine. -Patient presenting with mild COPD exacerbation with quick improvement with IV steroids and nebs. Continue same until patient at her baseline oxygen requirement (3-4L)
[2023-11-03] MEDS ORDERED: TYLENOL 325 MG PO PRN (17:25)
[2023-11-03] MEDS ORDERED: Zofran 4 MG/2 ML VIAL IV PRN (17:25)
[2023-11-03] MEDS ORDERED: NON-FORMULARY ITEM (Metolazone [Metolazone] 5 MG Tablet) PO SCH (17:45)
[2023-11-03] MEDS ORDERED: DUONEB 0.5-3 MG/3 ml Neb IH SCH (19:00)
[2023-11-03] MEDS: PROVENTIL 2.5 MG/3 ML NEB IH SCH (19:10)
[2023-11-03] MEDS: Advair Hfa 115/21 Common canister IH SCH (19:12)
[2023-11-03] MEDS: Lasix 40 MG PO SCH (21:17)
[2023-11-03] MEDS: xanAX 0.25 MG PO SCH (21:17)
[2023-11-03] MEDS: Abilify 10 MG PO SCH (21:17)
[2023-11-03] MEDS: Coreg PO SCH (21:17)
[2023-11-03] MEDS: LYRICA 150MG PO SCH (21:17)
[2023-11-03] MEDS: solu-MEDROL 40 MG, Sterile H2O 10 ml 1 ML IV SCH (21:18)
[2023-11-03] MEDS: DESYREL 50 MG PO SCH (21:18)
[2023-11-03 21:42] LABS: A-aADO2 125; ABG HEMOGLOBIN 10.5; ABG POTASSIUM 3.5 (3.5-5.1); ARTERIAL BLD GAS O2 SATURATION 93.6 % (95-100); ARTERIAL BLOOD GAS FIO2 36 %; ARTERIAL BLOOD GAS PCO2 59 mmHg (35-45); ARTERIAL BLOOD GAS PO2 58 mmHg (75-100); ARTERIAL BLOOD GAS pH 7.49 (7.35-7.45); CARBOXYHEMOGLOBIN 2.2 % THgb (0.0-6.9); HGB O2 SAT 91.4 g/dF (94-100); Methhemoglobin 0.1 % (1.4-1.5); paO2 pAO1 0.32
[2023-11-03 21:45] LABS: ABG SITE LRA; ALLEN TEST OK? y
[2023-11-03] MEDS ORDERED: NON-FORMULARY ITEM (Trazodone Hcl [Trazodone Hcl] 100 MG Tablet) PO SCH (22:00)
[2023-11-03] MEDS ORDERED: NON-FORMULARY ITEM (Aripiprazole [Aripiprazole] 5 MG Tablet) PO SCH (22:00)
[2023-11-03] MEDS ORDERED: NON-FORMULARY ITEM (Pregabalin [Lyrica] 300 MG Capsule) PO SCH (22:00)
[2023-11-04 05:12] LABS: Absolute Neutrophil Ct (ANC) 9.64 x10^3/uL (1.56-6.13); BASOPHIL % 0.1 % (0.1-1.2); Basophil (Absolute #) 0.01 x10^3/uL (0.01-0.08); Eosinophil (Absolute #) 0 x10^3/uL (0.04-0.36); Hematocrit 36.2 % (34.1-44.9); IMMATURE GRAN # 0.11 x10^3u/L (0.001-0.031); IMMATURE GRAN % 1.1 % (0.001-0.429); Lymphocyte (Absolute #) 0.51 x10^3/uL (1.18-3.74); Lymphocytes % 4.9 % (19.3-51.7); Mean Corpuscular Hemoglobin 27.4 pg (25.6-32.2); Mean Corpuscular Hgb Concent. 30.4 g/dL (32.2-35.5); Mean Platelet Volume 9.7 fL (9.4-12.3); Monocyte (Absolute #) 0.16 x10^3/uL (0.24-0.86); Monocytes % 1.5 % (4.7-12.5); Neutrophil % 92.4 % (34.0-71.1); Platelet Count 241 x10^3/uL (182-369); Red Blood Count 4.02 x10^6/uL (3.93-5.22); Red Cell Distribution Width 17.3 % (11.7-14.4); White Blood Count 10.4 x10^3/uL (3.98-10.04)
--- NOTE | 2023-11-04 05:29 | PCM.NOTE ---
Date and Time: 11/04/23 0528 Subjective Assessment: History of Present Illness: is a 63 year old female with a pmhx of COPD (3-4L baseline oxygen ),CHF, HLD, HTN, GUIDO, emphysema, hypothyroidism, anxiety/panic disorder, and peripheral neuropathy who presented to [facility] 11/03/23 with complaints of progressive shortness of breath. Patient states she suffers from panic disorder and has had anxiety regarding upcoming scheduled surgery with Dr. Blas (podiatry) of her left ankle on 11/05/23. She reports that she got in the shower this morning and experienced a panic attack and subsequent progressive shortness of breath. She normally wears 3-4L of oxygen and uses a nebulizer at home but states her panic attacks often exacerbate her COPD and she was not able to catch her breath at home and called the ambulance. She states she has had numerous ED visits (10/27 and 10/29) for weakness and shortness of breath. CT chest reviewed from 10/30/23 showing no acute findings/negative for PE. Patient did have recent sleep study with CPAP pending. During interview, she is at her baseline oxygen of 4L and dyspnea is improved. Upon arrival via EMS patient hypoxic with spo2 in the 70's. EKG NS, Normal [place], no ST elevation/deviations. CXR demonstrates no acute findings. Lab findings remarkable for macrocytic anemia with hgb at 10.4, hypochloremia, and hypercapnia. Respiratory panel negative. Patient was given duonebs in ED. She received solumedrol and albuterol via EMS. Patient improved but admitted for copd exacerbation. 11/04/23: Met with patient bedside. Endorses continued weakness, dyspnea, and wheezing. Lung auscultation diminished with noted exp wheezing bilaterally. Will continue IV steroids. PT evaluation for weakness, patient most likely will need rehab on discharge. - Review of Systems Constitutional: Fatigue, Weakness Eyes: No Symptoms Ears, Nose, & Throat: No Symptoms Respiratory: Cough, Short Of Breath, Wheezing Cardiac: No Symptoms Abdominal/Gastrointestinal: No Symptoms Genitourinary Symptoms: No Symptoms Musculoskeletal: No Symptoms Skin: No Symptoms Neurological: No Symptoms Psychological: Anxiety Endocrine: No Symptoms Hematologic/Lymphatic: No Symptoms Objective Exam General Appearance: no apparent distress Neurologic Exam: alert, oriented x 3, cooperative Skin Exam: normal color Eye Exam: PERRL Ears, Nose, Throat Exam: normal ENT inspection Neck Exam: normal inspection Respiratory Exam: diminished breath sounds, wheezing Cardiovascular Exam: regular rate/rhythm, normal heart sounds Gastrointestinal/Abdomen Exam: soft, normal bowel sounds Extremity Exam: normal inspection Back Exam: normal inspection Pelvic Exam: deferred Rectal Exam: deferred Objective Data Vital Signs: Vital Signs - 24 hr Temp Pulse Resp BP BP Pulse Ox 11/04/23 00:00 97.5 F 81 19 114/55 88 L 11/03/23 20:00 99.4 F 79 20 148/67 94 L 11/03/23 19:29 78 16 97 11/03/23 17:05 87 20 92 L 11/03/23 16:45 87 11/03/23 16:33 97.0 F 75 20 138/76 94 L 11/03/23 16:16 75 20 94 L 11/03/23 16:15 72 18 146/80 92 L 11/03/23 16:00 70 15 137/68 93 L 11/03/23 15:56 100 11/03/23 15:45 61 16 140/62 91 L 11/03/23 15:36 59 L 19 133/72 95 11/03/23 15:30 58 L 18 136/69 11/03/23 14:56 100 11/03/23 14:24 97.0 F 74 22 138/76 100 Pain Assessment - Last Documented Pain Intensity 0 Intake and Output: Intake & Output 11/01/23 11/02/23 11/03/23 11/04/23 11:59 11:59 11:59 11:59 Intake Total 240 Balance 240 Weight 92.1 kg Lab Results: Lab Results-Last 24 Hours 11/03/23 11/03/23 11/03/23 Range/Units 15:10 15:10 15:10 WBC 9.9 (3.98-10.04) x10^3/uL RBC 3.81 L (3.93-5.22) x10^6/uL Hgb 10.4 L (11.2-15.7) g/dL Hct 36.4 (34.1-44.9) % MCV 95.5 H (79.4-94.8) fL MCH 27.3 (25.6-32.2) pg MCHC 28.6 L (32.2-35.5) g/dL RDW 17.2 H (11.7-14.4) % Plt Count 207 (182-369) x10^3/uL MPV 9.5 (9.4-12.3) fL Gran % 74.3 H (34.0-71.1) % Immature Gran % (Auto) 1.2 H (0.001-0.429) % Nucleat RBC Rel Count 0.0 (0.00-0.2) % Eos # (Auto) 0.23 (0.04-0.36) x10^3/uL Immature Gran # (Auto) 0.12 H (0.001-0.031) x10^3u/L Absolute Lymphs (auto) 1.55 (1.18-3.74) x10^3/uL Absolute Monos (auto) 0.57 (0.24-0.86) x10^3/uL Absolute Nucleated RBC 0.00 (0.00-0.012) x10^3u/L Lymphocytes % 15.7 L (19.3-51.7) % Monocytes % 5.8 (4.7-12.5) % Eosinophils % 2.3 (0.7-5.8) % Basophils % 0.7 (0.1-1.2) % Absolute Granulocytes 7.35 H (1.56-6.13) x10^3/uL Basophils # 0.07 (0.01-0.08) x10^3/uL Puncture Site pCO2 (35-45) mmHg pO2 (75-100) mmHg Base Excess (-2.0-2.0) O2 Saturation (94-100) g/dF ABG pH (7.35-7.45) ABG HCO3 (22-28) ABG O2 Sat (Measured) (95-100) % Shabbir Test A-a Gradient a/A Ratio Hemoglobin Carboxyhemoglobin (0.0-6.9) % THgb Methemoglobin (1.4-1.5) % Temperature C POC O2 Flow Rate % Sodium 138 (135-145) mmol/L Potassium 4.3 (3.5-5.1) mmol/L Chloride 88 L (98-107) mmol/L Carbon Dioxide 45 H (22-30) mmol/L Anion Gap 9.3 (5-15) MEQ/L BUN 9 (7-17) mg/dL Creatinine 0.73 (0.52-1.04) mg/dL Estimated GFR 92.9 ML/MIN Glucose 123 H (74-106) mg/dL Calcium 9.0 (8.4-10.2) mg/dL Total Bilirubin 0.40 (0.2-1.3) mg/dL AST 22 (14-36) U/L ALT 18 (0-35) U/L Alkaline Phosphatase 130 H (38-126) U/L Troponin I < 0.012 (0.000-0.033) ng/mL Serum Total Protein 6.8 (6.3-8.2) g/dL Albumin 3.7 (3.5-5.0) g/dL Influenza Type A Ag (NEGATIVE) Influenza Type B Ag (NEGATIVE) RSV (PCR) (NEGATIVE) SARS-CoV-2 (PCR) (NEGATIVE) Slides for Path Review YES 11/03/23 11/03/23 11/03/23 Range/Units 15:12 18:50 21:28 WBC (3.98-10.04) x10^3/uL RBC (3.93-5.22) x10^6/uL Hgb (11.2-15.7) g/dL Hct (34.1-44.9) % MCV (79.4-94.8) fL MCH (25.6-32.2) pg MCHC (32.2-35.5) g/dL RDW (11.7-14.4) % Plt Count (182-369) x10^3/uL MPV (9.4-12.3) fL Gran % (34.0-71.1) % Immature Gran % (Auto) (0.001-0.429) % Nucleat RBC Rel Count (0.00-0.2) % Eos # (Auto) (0.04-0.36) x10^3/uL Immature Gran # (Auto) (0.001-0.031) x10^3u/L Absolute Lymphs (auto) (1.18-3.74) x10^3/uL Absolute Monos (auto) (0.24-0.86) x10^3/uL Absolute Nucleated RBC (0.00-0.012) x10^3u/L Lymphocytes % (19.3-51.7) % Monocytes % (4.7-12.5) % Eosinophils % (0.7-5.8) % Basophils % (0.1-1.2) % Absolute Granulocytes (1.56-6.13) x10^3/uL Basophils # (0.01-0.08) x10^3/uL Puncture Site LRA pCO2 59 H (35-45) mmHg pO2 58 L (75-100) mmHg Base Excess 19.0 H (-2.0-2.0) O2 Saturation 91.4 L (94-100) g/dF ABG pH 7.49 H (7.35-7.45) ABG HCO3 45.0 H* (22-28) ABG O2 Sat (Measured) 93.6 L (95-100) % Shabbir Test y A-a Gradient 125 a/A Ratio 0.32 Hemoglobin 10.5 Carboxyhemoglobin 2.2 (0.0-6.9) % THgb Methemoglobin 0.1 L (1.4-1.5) % Temperature 37.0 C POC O2 Flow Rate 36 % Sodium (135-145) mmol/L Potassium 3.5 (3.5-5.1) mmol/L Chloride (98-107) mmol/L Carbon Dioxide (22-30) mmol/L Anion Gap (5-15) MEQ/L BUN (7-17) mg/dL Creatinine (0.52-1.04) mg/dL Estimated GFR ML/MIN Glucose (74-106) mg/dL Calcium (8.4-10.2) mg/dL Total Bilirubin (0.2-1.3) mg/dL AST (14-36) U/L ALT (0-35) U/L Alkaline Phosphatase (38-126) U/L Troponin I < 0.012 (0.000-0.033) ng/mL Serum Total Protein (6.3-8.2) g/dL Albumin (3.5-5.0) g/dL Influenza Type A Ag NEGATIVE (NEGATIVE) Influenza Type B Ag NEGATIVE (NEGATIVE) RSV (PCR) NEGATIVE (NEGATIVE) SARS-CoV-2 (PCR) NEGATIVE (NEGATIVE) Slides for Path Review 11/03/23 11/04/23 Range/Units 22:25 05:00 WBC 10.4 H (3.98-10.04) x10^3/uL RBC 4.02 (3.93-5.22) x10^6/uL Hgb 11.0 L (11.2-15.7) g/dL Hct 36.2 (34.1-44.9) % MCV 90.0 (79.4-94.8) fL MCH 27.4 (25.6-32.2) pg MCHC 30.4 L (32.2-35.5) g/dL RDW 17.3 H (11.7-14.4) % Plt Count 241 (182-369) x10^3/uL MPV 9.7 (9.4-12.3) fL Gran % 92.4 H (34.0-71.1) % Immature Gran % (Auto) 1.1 H (0.001-0.429) % Nucleat RBC Rel Count 0.0 (0.00-0.2) % Eos # (Auto) 0 L (0.04-0.36) x10^3/uL Immature Gran # (Auto) 0.11 H (0.001-0.031) x10^3u/L Absolute Lymphs (auto) 0.51 L (1.18-3.74) x10^3/uL Absolute Monos (auto) 0.16 L (0.24-0.86) x10^3/uL Absolute Nucleated RBC 0.00 (0.00-0.012) x10^3u/L Lymphocytes % 4.9 L (19.3-51.7) % Monocytes % 1.5 L (4.7-12.5) % Eosinophils % 0.0 L (0.7-5.8) % Basophils % 0.1 (0.1-1.2) % Absolute Granulocytes 9.64 H (1.56-6.13) x10^3/uL Basophils # 0.01 (0.01-0.08) x10^3/uL Puncture Site pCO2 (35-45) mmHg pO2 (75-100) mmHg Base Excess (-2.0-2.0) O2 Saturation (94-100) g/dF ABG pH (7.35-7.45) ABG HCO3 (22-28) ABG O2 Sat (Measured) (95-100) % Shabbir Test A-a Gradient a/A Ratio Hemoglobin Carboxyhemoglobin (0.0-6.9) % THgb Methemoglobin (1.4-1.5) % Temperature C POC O2 Flow Rate % Sodium (135-145) mmol/L Potassium (3.5-5.1) mmol/L Chloride (98-107) mmol/L Carbon Dioxide (22-30) mmol/L Anion Gap (5-15) MEQ/L BUN (7-17) mg/dL Creatinine (0.52-1.04) mg/dL Estimated GFR ML/MIN Glucose (74-106) mg/dL Calcium (8.4-10.2) mg/dL Total Bilirubin (0.2-1.3) mg/dL AST (14-36) U/L ALT (0-35) U/L Alkaline Phosphatase (38-126) U/L Troponin I < 0.012 (0.000-0.033) ng/mL Serum Total Protein (6.3-8.2) g/dL Albumin (3.5-5.0) g/dL Influenza Type A Ag (NEGATIVE) Influenza Type B Ag (NEGATIVE) RSV (PCR) (NEGATIVE) SARS-CoV-2 (PCR) (NEGATIVE) Slides for Path Review Radiology Exams: Radiology Procedures Category Date Time Status CHEST 1 VIEW (PORTABLE) Stat Exams 11/03/23 14:53 Completed Multi-Disciplinary Progress Notes: Multi-Disciplinary Progress Notes 11/03/23 17:16 Respiratory Note by Shruti Liu IDALMIS, RESIDENT SERVICES MANAGER REQUESTED PT BE PLACED ON CPAP TONIGHT. PT HAD SLEEP STUDY ON 09/15/23 WHICH WAS POSITIVE BUT PT IS STILL WAITING TO GET HER CPAP AT HOME. DR. ALLEN RECOMMENDED CPAP [id number] W/ OXYGEN. I SPOKE WITH PT ABOUT WEARING ONE TONIGHT BUT SHE BECAME ANXIOUS AND WANTS TO WAIT AND DISCUSS IT THIS EVENING BEFORE BED. WILL ATTEMPT AGAIN TONIGHT. Initialized on 11/03/23 17:16 - END OF NOTE Assessment/Plan (1) Acute respiratory failure with hypoxia Current Visit: Yes Status: Acute Assessment & Plan: -Secondary to COPD exacerbation -Supplemental oxygen with spo2 goal 88-92% 3-4L at baseline -RT eval -nebs q4h scheduled x 3 doses then every 2-4 hours as needed -CXR with no acute findings -Resp viral panel negative -Solumedrol 40mg q8H -Levaquin - already taking -ABG if significant lethargy/hypoxia -continue home trelegy -Chest CT from 10/30/23 reviewed with no acute findings, negative for PE 11/03: -continue solumedrol/Nebs -PT eval Code(s): J96.01 - ACUTE RESPIRATORY FAILURE WITH HYPOXIA (2) COPD exacerbation Current Visit: Yes Status: Acute Assessment & Plan: -See ARF Code(s): J44.1 - CHRONIC OBSTRUCTIVE PULMONARY DISEASE W (ACUTE) EXACERBATION (3) CHF (congestive heart failure) Current Visit: Yes Status: Acute Assessment & Plan: -No recent echo -EKG unremarkable -CXR negative for cardiopulmonary processes Code(s): I50.9 - HEART FAILURE, UNSPECIFIED (4) UTI (urinary tract infection) Current Visit: Yes Status: Acute Assessment & Plan: -Being treated with levaquin as OP, reviewed ucult from 10/28/23 showing ecoli - sensitive to levaquin will continue as directed Code(s): N39.0 - URINARY TRACT INFECTION, SITE NOT SPECIFIED (5) HTN (hypertension) Current Visit: No Status: Acute Assessment & Plan: -stable continue home meds Code(s): I10 - ESSENTIAL (PRIMARY) HYPERTENSION (6) Anxiety and depression Current Visit: No Status: Chronic Assessment & Plan: -continue home meds Code(s): F41.9 - ANXIETY DISORDER, UNSPECIFIED; F32.A - DEPRESSION, UNSPECIFIED (7) Foot fracture, left Current Visit: No Status: Acute Assessment & Plan: -Reviewed CT LLE from 10/30/23 Impression: 1. Nondisplaced acute fractures proximal 5th phalanx and lateral cuboid. 2. Old nonunited fractures base 1st-3rd metatarsals with 1st tarsometatarsal subluxation. Old displaced fracture anterior calcaneus. 3. Diffuse soft tissue swelling, osteopenia, and posterior/plantar heel spurs. -Podiatry following with planned surgical intervention 11/05/23 - patient states SNF for rehab following -pain control Code(s): S92.902A - UNSP FRACTURE OF LEFT FOOT, INIT ENCNTR FOR CLOSED FRACTURE (8) GUIDO (obstructive sleep apnea) Current Visit: No Status: Chronic Assessment & Plan: -recent sleep study, CPAP pending ##Weakness -PT eval for possible rehab stay VTE:bilateral SCD Dispo: 1-2 days Code(s): J96.01 - ACUTE RESPIRATORY FAILURE WITH HYPOXIA (2) COPD exacerbation Current Visit: Yes Status: Acute Code(s): J44.1 - CHRONIC OBSTRUCTIVE PULMONARY DISEASE W (ACUTE) EXACERBATION (3) CHF (congestive heart failure) Current Visit: Yes Status: Acute Code(s): I50.9 - HEART FAILURE, UNSPECIFIED (4) UTI (urinary tract infection) Current Visit: Yes Status: Acute Code(s): N39.0 - URINARY TRACT INFECTION, SITE NOT SPECIFIED (5) HTN (hypertension) Current Visit: No Status: Acute Code(s): I10 - ESSENTIAL (PRIMARY) HYPERTENSION (6) Anxiety and depression Current Visit: No Status: Chronic Code(s): F41.9 - ANXIETY DISORDER, UNSPECIFIED; F32.A - DEPRESSION, UNSPECIFIED (7) Foot fracture, left Current Visit: No Status: Acute Code(s): S92.902A - UNSP FRACTURE OF LEFT FOOT, INIT ENCNTR FOR CLOSED FRACTURE (8) GUIDO (obstructive sleep apnea) Current Visit: No Status: Chronic Code(s): G47.33 - OBSTRUCTIVE SLEEP APNEA (ADULT) (PEDIATRIC) (9) Weakness Current Visit: Yes Status: Acute Code(s): R53.1 - WEAKNESS
[2023-11-04 05:52] LABS: BILIRUBIN,TOTAL 0.4 mg/dL (0.2-1.3); Calcium 9.2 mg/dL (8.4-10.2); Creatinine 1 0.87 mg/dL (0.52-1.04); EST GLOMERULAR FILTRATION RATE 75.3 ML/MIN; Potassium 3.4 mmol/L (3.5-5.1); Total Protein 7.2 g/dL (6.3-8.2)
[2023-11-04 06:01] LABS: Slide Review 1 YES
[2023-11-04 06:10] LABS: ANION GAP 11.4 MEQ/L (5-15)
[2023-11-04] MEDS: Spiriva 18 Mcg/Cap Inhaler IH SCH (06:55)
[2023-11-04] MEDS: ZOCOR 20MG PO SCH (09:02)
[2023-11-04] MEDS: Klor Con PO SCH (09:02)
[2023-11-04] MEDS: Zaroxolyn 2.5 MG PO SCH (09:02)
[2023-11-04] MEDS: Cymbalta 30 MG Capsule PO SCH (09:02)
[2023-11-04] MEDS: Levofloxacin 500 MG Tablet PO SCH (09:03)
[2023-11-04] MEDS: Cozaar 50 MG PO SCH (09:03)
[2023-11-04] MEDS: SYNTHROID 150 MCG PO SCH (09:03)
[2023-11-04] MEDS ORDERED: LIPITOR 40MG PO SCH (10:00)
[2023-11-04] MEDS ORDERED: DUONEB 0.5-3 MG/3 ml Neb IH PRN (10:00)
[2023-11-05 04:42] LABS: BASOPHIL % 0.1 % (0.1-1.2); Basophil (Absolute #) 0.01 x10^3/uL (0.01-0.08); Eosinophil (Absolute #) 0 x10^3/uL (0.04-0.36); Hemoglobin 10.8 g/dL (11.2-15.7); IMMATURE GRAN # 0.13 x10^3u/L (0.001-0.031); IMMATURE GRAN % 0.8 % (0.001-0.429); Lymphocyte (Absolute #) 0.66 x10^3/uL (1.18-3.74); Lymphocytes % 4.2 % (19.3-51.7); Mean Cell Volume 87.5 fL (79.4-94.8); Mean Corpuscular Hgb Concent. 30.9 g/dL (32.2-35.5); Mean Platelet Volume 9.2 fL (9.4-12.3); Monocytes % 3.8 % (4.7-12.5); Neutrophil % 91.1 % (34.0-71.1); Platelet Count 238 x10^3/uL (182-369); Red Cell Distribution Width 17.2 % (11.7-14.4); White Blood Count 15.8 x10^3/uL (3.98-10.04)
[2023-11-05 05:09] LABS: ALBUMIN 3.9 g/dL (3.5-5.0); BILIRUBIN,TOTAL 0.3 mg/dL (0.2-1.3); Calcium 8.8 mg/dL (8.4-10.2); Creatinine 1 1.29 mg/dL (0.52-1.04); EST GLOMERULAR FILTRATION RATE 46.9 ML/MIN; Potassium 3.2 mmol/L (3.5-5.1); Total Protein 6.9 g/dL (6.3-8.2)
--- NOTE | 2023-11-05 05:12 | PCM.NOTE ---
Date and Time: 11/05/23 0508 Subjective Assessment: is a 63 year old female with a pmhx of COPD (3-4L baseline oxygen),CHF, HLD, HTN, GUIDO, emphysema, hypothyroidism, anxiety/panic disorder, and peripheral neuropathy who presented to [facility] ED 11/03/23 with complaints of progressive shortness of breath. Patient states she suffers from panic disorder and has had anxiety regarding upcoming scheduled surgery with Dr. Blas (podiatry) of her left ankle on 11/05/23. She reports that she got in the shower this morning and experienced a panic attack and subsequent progressive shortness of breath. She normally wears 3-4L of oxygen and uses a nebulizer at home but states her panic attacks often exacerbate her COPD and she was not able to catch her breath at home and called the ambulance. She states she has had numerous ED visits (10/27 and 10/29) for weakness and shortness of breath. CT chest reviewed from 10/30/23 showing no acute findings/negative for PE. Patient did have recent sleep study with CPAP pending. During interview, she is at her baseline oxygen of 4L and dyspnea is improved. Upon arrival via EMS patient hypoxic with spo2 in the 70's. EKG NS, Normal [place], no ST elevation/deviations. CXR demonstrates no acute findings. Lab findings remarkable for macrocytic anemia with hgb at 10.4, hypochloremia, and hypercapnia. Respiratory panel negative. Patient was given duonebs in ED. She received solumedrol and albuterol via EMS. Patient admitted for copd exacerbation. Continues to have weakness throughout hospitalization. PT to evaluate. Patient is psychologically stable. I suspect patient will need 30 days or less of rehab. 11/04/23: Met with patient bedside. Endorses continued weakness, dyspnea, and wheezing. Lung auscultation diminished with noted exp wheezing bilaterally. Will continue IV steroids. PT evaluation for weakness, patient most likely will need rehab on discharge. 11/04: No overnight events noted. Endorses improvement in dyspnea. No wheezing on auscultation. Lung sounds diminished. Labs with noted LISA and hypokalemia. Home meds include lasix, metolazone, and losartan - hold. No edema noted on exam. Plan to change steroids to oral prednisone, replenish potassium. Pending labs in the morning may be able to discharge tomorrow to SNF. - Review of Systems Constitutional: Fatigue, Weakness Eyes: No Symptoms Ears, Nose, & Throat: No Symptoms Respiratory: Cough, Short Of Breath Cardiac: No Symptoms Abdominal/Gastrointestinal: No Symptoms Genitourinary Symptoms: No Symptoms Musculoskeletal: No Symptoms Skin: No Symptoms Neurological: No Symptoms Psychological: Anxiety Endocrine: No Symptoms Hematologic/Lymphatic: No Symptoms Immunological/Allergic: No Symptoms Objective Exam General Appearance: no apparent distress Neurologic Exam: alert, oriented x 3, cooperative Skin Exam: normal color Eye Exam: PERRL Ears, Nose, Throat Exam: normal ENT inspection Neck Exam: normal inspection Respiratory Exam: diminished breath sounds Cardiovascular Exam: regular rate/rhythm, normal heart sounds Gastrointestinal/Abdomen Exam: soft, normal bowel sounds Extremity Exam: normal inspection Back Exam: normal inspection Pelvic Exam: deferred Rectal Exam: deferred Objective Data Vital Signs: Vital Signs - 24 hr Temp Pulse Resp BP Pulse Ox 11/05/23 01:19 100 11/04/23 23:51 97.7 F 84 15 113/59 88 L 11/04/23 20:00 98.0 F 82 16 102/52 90 L 11/04/23 18:55 80 16 91 L 11/04/23 16:00 96.4 F 99 H 18 107/53 93 L 11/04/23 15:13 72 16 97 11/04/23 12:00 99.0 F 77 16 112/55 97 11/04/23 11:17 76 16 91 L 11/04/23 07:59 98.0 F 71 16 123/60 91 L 11/04/23 06:56 72 16 95 Pain Assessment - Last Documented Pain Intensity 0 Intake and Output: Intake & Output 11/02/23 11/03/23 11/04/23 11/05/23 11:59 11:59 11:59 11:59 Intake Total 480 840 Balance 480 840 Weight 92.1 kg Lab Results: Lab Results-Last 24 Hours 11/04/23 11/04/23 11/05/23 Range/Units 05:00 05:00 04:35 WBC 10.4 H 15.8 H (3.98-10.04) x10^3/uL RBC 4.02 4.00 (3.93-5.22) x10^6/uL Hgb 11.0 L 10.8 L (11.2-15.7) g/dL Hct 36.2 35.0 (34.1-44.9) % MCV 90.0 87.5 (79.4-94.8) fL MCH 27.4 27.0 (25.6-32.2) pg MCHC 30.4 L 30.9 L (32.2-35.5) g/dL RDW 17.3 H 17.2 H (11.7-14.4) % Plt Count 241 238 (182-369) x10^3/uL MPV 9.7 9.2 L (9.4-12.3) fL Gran % 92.4 H 91.1 H (34.0-71.1) % Immature Gran % (Auto) 1.1 H 0.8 H (0.001-0.429) % Nucleat RBC Rel Count 0.0 0.0 (0.00-0.2) % Eos # (Auto) 0 L 0 L (0.04-0.36) x10^3/uL Immature Gran # (Auto) 0.11 H 0.13 H (0.001-0.031) x10^3u/L Absolute Lymphs (auto) 0.51 L 0.66 L (1.18-3.74) x10^3/uL Absolute Monos (auto) 0.16 L 0.60 (0.24-0.86) x10^3/uL Absolute Nucleated RBC 0.00 0.00 (0.00-0.012) x10^3u/L Lymphocytes % 4.9 L 4.2 L (19.3-51.7) % Monocytes % 1.5 L 3.8 L (4.7-12.5) % Eosinophils % 0.0 L 0.0 L (0.7-5.8) % Basophils % 0.1 0.1 (0.1-1.2) % Absolute Granulocytes 9.64 H 14.40 H (1.56-6.13) x10^3/uL Basophils # 0.01 0.01 (0.01-0.08) x10^3/uL Sodium 141 (135-145) mmol/L Potassium 3.4 L D (3.5-5.1) mmol/L Chloride 84 L (98-107) mmol/L Carbon Dioxide 49 H (22-30) mmol/L Anion Gap 11.4 (5-15) MEQ/L BUN 13 (7-17) mg/dL Creatinine 0.87 (0.52-1.04) mg/dL Estimated GFR 75.3 ML/MIN Glucose 157 H (74-106) mg/dL Calcium 9.2 (8.4-10.2) mg/dL Total Bilirubin 0.40 (0.2-1.3) mg/dL AST 31 (14-36) U/L ALT 27 (0-35) U/L Alkaline Phosphatase 118 (38-126) U/L Serum Total Protein 7.2 (6.3-8.2) g/dL Albumin 4.0 (3.5-5.0) g/dL Slides for Path Review YES Radiology Exams: Radiology Procedures Category Date Time Status CHEST 1 VIEW (PORTABLE) Stat Exams 11/03/23 14:53 Completed Multi-Disciplinary Progress Notes: Multi-Disciplinary Progress Notes 11/04/23 14:22 Case Management Note by Kandi Feldman SPOKE WITH NADIA AT [facility], REFERRAL FAXED, . AWAIT NOTIFICATION OF APPROVAL. Initialized on 11/04/23 14:22 - END OF NOTE 11/04/23 14:10 (created 11/04/23 14:20) Case Management Note by Kandi Feldman SPOKE WITH PT REGARDING NEEDS AT DISCHARGE. PT REPORTS THAT SHE WOULD LIKE TO GO FOR A REHAB STAY AT [facility] ON DISCHARGE. FEELS WEAK AND DECONDITIONED. REQUESTS REFERRAL TO [facility] IN [place], [place] THIS IS CLOSE TO HER HOME. DENIES ADDNL NEEDS AT PRESENT. Initialized on 11/04/23 14:20 - END OF NOTE Assessment/Plan (1) Acute respiratory failure with hypoxia Current Visit: Yes Status: Acute Assessment & Plan: -Secondary to COPD exacerbation -Supplemental oxygen with spo2 goal 88-92% 3-4L at baseline -RT eval -nebs q4h scheduled x 3 doses then every 2-4 hours as needed -CXR with no acute findings -Resp viral panel negative -Solumedrol 40mg q8H -Levaquin - already taking -ABG if significant lethargy/hypoxia -continue home trelegy -Chest CT from 10/30/23 reviewed with no acute findings, negative for PE 11/03: -continue solumedrol/Nebs -PT eval 11/04: -solumedrol d/c - add prednisone 20mg bid x 5 days Code(s): J96.01 - ACUTE RESPIRATORY FAILURE WITH HYPOXIA (2) COPD exacerbation Current Visit: Yes Status: Acute Assessment & Plan: -See ARF Code(s): J44.1 - CHRONIC OBSTRUCTIVE PULMONARY DISEASE W (ACUTE) EXACERBATION ##Hypokalemia - replenish, 40meq ordered, will recheck this afternoon ##Weakness -PT eval for possible 30 day or less rehab stay -psychologically stable for SNF ###LISA -Hold losartan, lasix, metolazone -monitor renal/lytes daily (3) CHF (congestive heart failure) Current Visit: Yes Status: Acute Assessment & Plan: -No recent echo -EKG unremarkable -CXR negative for cardiopulmonary processes Code(s): I50.9 - HEART FAILURE, UNSPECIFIED (4) UTI (urinary tract infection) Current Visit: Yes Status: Acute Assessment & Plan: -Being treated with levaquin as OP, reviewed ucult from 10/28/23 showing ecoli - sensitive to levaquin will continue as directed Code(s): N39.0 - URINARY TRACT INFECTION, SITE NOT SPECIFIED (5) HTN (hypertension) Current Visit: No Status: Acute Assessment & Plan: -stable continue home meds Code(s): I10 - ESSENTIAL (PRIMARY) HYPERTENSION (6) Anxiety and depression Current Visit: No Status: Chronic Assessment & Plan: -continue home meds Code(s): F41.9 - ANXIETY DISORDER, UNSPECIFIED; F32.A - DEPRESSION, UNSPECIFIED (7) Foot fracture, left Current Visit: No Status: Acute Assessment & Plan: -Reviewed CT LLE from 10/30/23 Impression: 1. Nondisplaced acute fractures proximal 5th phalanx and lateral cuboid. 2. Old nonunited fractures base 1st-3rd metatarsals with 1st tarsometatarsal subluxation. Old displaced fracture anterior calcaneus. 3. Diffuse soft tissue swelling, osteopenia, and posterior/plantar heel spurs. -Podiatry following initially planned surgical intervention 11/05/23 - discussed case with podiatry- due to current hospitalization and copd exacerbation, will hold surgery for now - follow up as OP (s): S92.902A - UNSP FRACTURE OF LEFT FOOT, INIT ENCNTR FOR CLOSED FRACTURE (8) GUIDO (obstructive sleep apnea) Current Visit: No Status: Chronic Assessment & Plan: -recent sleep study, CPAP pending VTE:bilateral SCD Dispo: 1-2 days Code(s): J96.01 - ACUTE RESPIRATORY FAILURE WITH HYPOXIA (2) Hypokalemia Current Visit: Yes Status: Acute Code(s): E87.6 - HYPOKALEMIA (3) LISA (acute kidney injury) Current Visit: Yes Status: Acute Code(s): N17.9 - ACUTE KIDNEY FAILURE, UNSPECIFIED (4) COPD exacerbation Current Visit: Yes Status: Acute Code(s): J44.1 - CHRONIC OBSTRUCTIVE PULMONARY DISEASE W (ACUTE) EXACERBATION (5) CHF (congestive heart failure) Current Visit: Yes Status: Acute Code(s): I50.9 - HEART FAILURE, UNSPECIFIED (6) UTI (urinary tract infection) Current Visit: Yes Status: Acute Code(s): N39.0 - URINARY TRACT INFECTION, SITE NOT SPECIFIED (7) HTN (hypertension) Current Visit: No Status: Acute Code(s): I10 - ESSENTIAL (PRIMARY) HYPERTENSION (8) Anxiety and depression Current Visit: No Status: Chronic Code(s): F41.9 - ANXIETY DISORDER, UNSPECIFIED; F32.A - DEPRESSION, UNSPECIFIED (9) Foot fracture, left Current Visit: No Status: Acute Code(s): S92.902A - UNSP FRACTURE OF LEFT FOOT, INIT ENCNTR FOR CLOSED FRACTURE (10) GUIDO (obstructive sleep apnea) Current Visit: No Status: Chronic Code(s): G47.33 - OBSTRUCTIVE SLEEP APNEA (ADULT) (PEDIATRIC) (11) Weakness Current Visit: Yes Status: Acute Code(s): R53.1 - WEAKNESS
[2023-11-05 05:46] LABS: ANION GAP 15.2 MEQ/L (5-15)
[2023-11-05] MEDS: Klor Con PO ONE (06:11)
[2023-11-05] MEDS: DELTASONE 20 MG PO SCH (10:11)
[2023-11-06 05:00] LABS: Absolute Neutrophil Ct (ANC) 12.68 x10^3/uL (1.56-6.13); BASOPHIL % 0.2 % (0.1-1.2); Basophil (Absolute #) 0.03 x10^3/uL (0.01-0.08); Eosinophil (Absolute #) 0 x10^3/uL (0.04-0.36); Hematocrit 33.5 % (34.1-44.9); Hemoglobin 10.4 g/dL (11.2-15.7); IMMATURE GRAN # 0.13 x10^3u/L (0.001-0.031); IMMATURE GRAN % 0.9 % (0.001-0.429); Lymphocyte (Absolute #) 0.87 x10^3/uL (1.18-3.74); Mean Cell Volume 87.7 fL (79.4-94.8); Mean Corpuscular Hemoglobin 27.2 pg (25.6-32.2); Mean Platelet Volume 9.2 fL (9.4-12.3); Monocyte (Absolute #) 0.76 x10^3/uL (0.24-0.86); Monocytes % 5.3 % (4.7-12.5); Neutrophil % 87.6 % (34.0-71.1); Platelet Count 214 x10^3/uL (182-369); Red Blood Count 3.82 x10^6/uL (3.93-5.22); Red Cell Distribution Width 17.2 % (11.7-14.4); White Blood Count 14.5 x10^3/uL (3.98-10.04)
[2023-11-06 05:27] LABS: ALBUMIN 3.6 g/dL (3.5-5.0); BILIRUBIN,TOTAL 0.3 mg/dL (0.2-1.3); Calcium 8.9 mg/dL (8.4-10.2); Creatinine 1 1.17 mg/dL (0.52-1.04); EST GLOMERULAR FILTRATION RATE 52.8 ML/MIN; Total Protein 6.5 g/dL (6.3-8.2)
[2023-11-06 05:32] LABS: Potassium 3.1 mmol/L (3.5-5.1)
--- NOTE | 2023-11-06 05:33 | PCM.DS ---
Discharge Summary Date of Admission: 11/03/23 16:33 Date of Discharge: 11/06/23 Admitting Physician: CLARISSE REY MD Primary Care Provider: CARINE MORENO Allergies Allergies gabapentin Allergy (Severe, Verified 10/30/23 15:46) pain ceftriaxone Allergy (Verified 10/30/23 15:46) Hospital Summary - Hospital Course Hospital Course: is a 63 year old female with a pmhx of COPD (3-4L baseline oxygen),CHF, HLD, HTN, GUIDO, emphysema, hypothyroidism, anxiety/panic disorder, and peripheral neuropathy who presented to [facility] 11/03/23 with complaints of progressive shortness of breath. Patient states she suffers from panic disorder and has had anxiety regarding upcoming scheduled surgery with Dr. Blas (podiatry) of her left ankle on 11/05/23. She reports that she got in the shower this morning and experienced a panic attack and subsequent progressive shortness of breath. She normally wears 3-4L of oxygen and uses a nebulizer at home but states her panic attacks often exacerbate her COPD and she was not able to catch her breath at home and called the ambulance. She states she has had numerous ED visits (10/27 and 10/29) for weakness and shortness of breath. CT chest reviewed from 10/30/23 showing no acute findings/negative for PE. Patient did have recent sleep study with CPAP pending. During interview, she is at her baseline oxygen of 4L and dyspnea is improved. Upon arrival via EMS patient hypoxic with spo2 in the 70's. EKG NS, Normal [place], no ST elevation/deviations. CXR demonstrates no acute findings. Lab findings remarkable for macrocytic anemia with hgb at 10.4, hypochloremia, and hypercapnia. Respiratory panel negative. Patient was given duonebs in ED. She received solumedrol and albuterol via EMS. Patient admitted for copd exacerbation. IP treatement with nebs/steroids. Continues to have weakness throughout hospitalization. PT evaluated patient with recommendations for d/c to SNF for continued PT/OT to maximize functional potential. Patient is psychologically stable. I suspect patient will need 30 days or less of rehab. Continue to hold losartan, lasix, metolazone until follow up with nephrology. Discharge Note New Diagnosis: COPD Exacerbation New Medications: Prednisone Follow Up: PCP/Pulm/Podiatry/nephrology Latest Assessment & Plan (1) Acute respiratory failure with hypoxia Current Visit: Yes Status: Acute Assessment & Plan: -Secondary to COPD exacerbation -Supplemental oxygen with spo2 goal 88-92% 3-4L at baseline -RT eval -nebs q4h scheduled x 3 doses then every 2-4 hours as needed -CXR with no acute findings -Resp viral panel negative -Solumedrol 40mg q8H -Levaquin - already taking -ABG if significant lethargy/hypoxia -continue home trelegy -Chest CT from 10/30/23 reviewed with no acute findings, negative for PE 11/03: -continue solumedrol/Nebs -PT eval 11/04: -solumedrol d/c - add prednisone 20mg bid x 5 days Code(s): J96.01 - ACUTE RESPIRATORY FAILURE WITH HYPOXIA (2) COPD exacerbation Current Visit: Yes Status: Acute Assessment & Plan: -See ARF Code(s): J44.1 - CHRONIC OBSTRUCTIVE PULMONARY DISEASE W (ACUTE) EXACERBATION ##Hypokalemia - replenish, 40meq ordered, will recheck this afternoon ##Weakness -PT eval for possible 30 day or less rehab stay -psychologically stable for SNF ###LISA -Hold losartan, lasix, metolazone -monitor renal/lytes daily (3) CHF (congestive heart failure) Current Visit: Yes Status: Acute Assessment & Plan: -No recent echo -EKG unremarkable -CXR negative for cardiopulmonary processes Code(s): I50.9 - HEART FAILURE, UNSPECIFIED (4) UTI (urinary tract infection) Current Visit: Yes Status: Acute Assessment & Plan: -Being treated with levaquin as OP, reviewed ucult from 10/28/23 showing ecoli - sensitive to levaquin will continue as directed Code(s): N39.0 - URINARY TRACT INFECTION, SITE NOT SPECIFIED (5) HTN (hypertension) Current Visit: No Status: Acute Assessment & Plan: -stable continue home meds Code(s): I10 - ESSENTIAL (PRIMARY) HYPERTENSION (6) Anxiety and depression Current Visit: No Status: Chronic Assessment & Plan: -continue home meds Code(s): F41.9 - ANXIETY DISORDER, UNSPECIFIED; F32.A - DEPRESSION, UNSPECIFIED (7) Foot fracture, left Current Visit: No Status: Acute Assessment & Plan: -Reviewed CT LLE from 10/30/23 Impression: 1. Nondisplaced acute fractures proximal 5th phalanx and lateral cuboid. 2. Old nonunited fractures base 1st-3rd metatarsals with 1st tarsometatarsal subluxation. Old displaced fracture anterior calcaneus. 3. Diffuse soft tissue swelling, osteopenia, and posterior/plantar heel spurs. -Podiatry following initially planned surgical intervention 11/05/23 - discussed case with podiatry- due to current hospitalization and copd exacerbation, will hold surgery for now - follow up as OP (s): S92.902A - UNSP FRACTURE OF LEFT FOOT, INIT ENCNTR FOR CLOSED FRACTURE (8) GUIDO (obstructive sleep apnea) Current Visit: No Status: Chronic Assessment & Plan: -recent sleep study, CPAP pending I spent 35 minutes [id number] with the patient on the day of discharge performing discharge exam, discussing hospital stay and discharge instructions with patient and caregivers, preparation of discharge records, prescriptions & referral forms and addressing any questions/concerns the patient had as documented above. - Vitals & Intake/Output Vital Signs: Vital Signs Temperature 97.3 F 11/06/23 04:00 Pulse Rate 66 11/06/23 04:00 Respiratory Rate 20 11/06/23 04:00 Blood Pressure 132/60 11/06/23 04:00 O2 Sat by Pulse Oximetry 92 L 11/06/23 04:00 Intake & Output: Intake & Output 11/03/23 11/04/23 11/05/23 11/06/23 11:59 11:59 11:59 11:59 Intake Total 480 960 720 Output Total 900 Balance 480 960 -180 Weight 92.1 kg - Lab Result Diagrams: 11/06/23 04:50 11/06/23 10:05 Lab Results-Last 24 Hrs: Lab Results-Last 24 Hours 11/05/23 11/05/23 11/06/23 Range/Units 04:35 14:24 04:50 WBC 14.5 H (3.98-10.04) x10^3/uL RBC 3.82 L (3.93-5.22) x10^6/uL Hgb 10.4 L (11.2-15.7) g/dL Hct 33.5 L (34.1-44.9) % MCV 87.7 (79.4-94.8) fL MCH 27.2 (25.6-32.2) pg MCHC 31.0 L (32.2-35.5) g/dL RDW 17.2 H (11.7-14.4) % Plt Count 214 (182-369) x10^3/uL MPV 9.2 L (9.4-12.3) fL Gran % 87.6 H (34.0-71.1) % Immature Gran % (Auto) 0.9 H (0.001-0.429) % Nucleat RBC Rel Count 0.0 (0.00-0.2) % Eos # (Auto) 0 L (0.04-0.36) x10^3/uL Immature Gran # (Auto) 0.13 H (0.001-0.031) x10^3u/L Absolute Lymphs (auto) 0.87 L (1.18-3.74) x10^3/uL Absolute Monos (auto) 0.76 (0.24-0.86) x10^3/uL Absolute Nucleated RBC 0.00 (0.00-0.012) x10^3u/L Lymphocytes % 6.0 L (19.3-51.7) % Monocytes % 5.3 (4.7-12.5) % Eosinophils % 0.0 L (0.7-5.8) % Basophils % 0.2 (0.1-1.2) % Absolute Granulocytes 12.68 H (1.56-6.13) x10^3/uL Basophils # 0.03 (0.01-0.08) x10^3/uL Sodium 137 (135-145) mmol/L Potassium 3.2 L 3.4 L (3.5-5.1) mmol/L Chloride 74 L (98-107) mmol/L Carbon Dioxide 51 H (22-30) mmol/L Anion Gap 15.2 H (5-15) MEQ/L BUN 37 H (7-17) mg/dL Creatinine 1.29 H (0.52-1.04) mg/dL Estimated GFR 46.9 ML/MIN Glucose 192 H (74-106) mg/dL Calcium 8.8 (8.4-10.2) mg/dL Total Bilirubin 0.30 (0.2-1.3) mg/dL AST 25 (14-36) U/L ALT 22 (0-35) U/L Alkaline Phosphatase 120 (38-126) U/L Serum Total Protein 6.9 (6.3-8.2) g/dL Albumin 3.9 (3.5-5.0) g/dL - Procedures and Test Procedures and Tests throughout Hospitalization: Therapy Orders & Screens 11/03/23 16:16 Respiratory Therapy Assessment DAILY Comment: 11/03/23 17:12 Oxygen NASAL CANNULA 6 lpm Comment: Diagnosis: sob Respiratory Therapy Assessment DAILY Comment: Diagnosis: sob 11/03/23 17:25 Respiratory Therapy Consult ONCE Comment: Reason For Exam: Diagnosis: sob 11/05/23 05:11 PT Eval & Treat (MD Order) ONCE Reason for Eval:: weakness Diagnosis: EXAC COPD, CHF Discharge Exam General Appearance: no apparent distress Neurologic Exam: alert, oriented x 3, cooperative Eye Exam: PERRL Ears, Nose, Throat Exam: normal ENT inspection Neck Exam: normal inspection Respiratory Exam: diminished breath sounds, crackles/rales Cardiovascular Exam: regular rate/rhythm, normal heart sounds Gastrointestinal/Abdomen Exam: soft, normal bowel sounds Pelvic Exam: deferred Rectal Exam: deferred Back Exam: normal inspection Extremity Exam: normal inspection Skin Exam: normal color Final Diagnosis/Problem List - Final Discharge Diagnosis/Problem (1) Acute respiratory failure with hypoxia Current Visit: Yes Status: Resolved Code(s): J96.01 - ACUTE RESPIRATORY FAILURE WITH HYPOXIA (2) Hypokalemia Current Visit: Yes Status: Resolved Code(s): E87.6 - HYPOKALEMIA (3) LISA (acute kidney injury) Current Visit: Yes Status: Acute Code(s): N17.9 - ACUTE KIDNEY FAILURE, UNSPECIFIED (4) COPD exacerbation Current Visit: Yes Status: Acute Code(s): J44.1 - CHRONIC OBSTRUCTIVE PULMONARY DISEASE W (ACUTE) EXACERBATION (5) CHF (congestive heart failure) Current Visit: Yes Status: Chronic Code(s): I50.9 - HEART FAILURE, UNSPECIFIED (6) UTI (urinary tract infection) Current Visit: Yes Status: Acute Code(s): N39.0 - URINARY TRACT INFECTION, SITE NOT SPECIFIED (7) HTN (hypertension) Current Visit: No Status: Chronic Code(s): I10 - ESSENTIAL (PRIMARY) HYPERTENSION (8) Anxiety and depression Current Visit: No Status: Chronic Code(s): F41.9 - ANXIETY DISORDER, UNSPECIFIED; F32.A - DEPRESSION, UNSPECIFIED (9) Foot fracture, left Current Visit: No Status: Acute Code(s): S92.902A - UNSP FRACTURE OF LEFT FOOT, INIT ENCNTR FOR CLOSED FRACTURE (10) GUIDO (obstructive sleep apnea) Current Visit: No Status: Chronic Code(s): G47.33 - OBSTRUCTIVE SLEEP APNEA (ADULT) (PEDIATRIC) (11) Weakness Current Visit: Yes Status: Acute Code(s): R53.1 - WEAKNESS - Discharge Disposition: DC TO ANY "OTHER" SHELTER Condition: Stable Prescriptions: New Prednisone 20 mg [Deltasone 20 mg] 20 mg PO BID 5 Days #10 tablet Albuterol 2.5 mg/3 ml Neb [Proventil 2.5 mg/3 ml Neb] 2.5 mg IH QIDRT Tiotropium [place] Inhaler [Spiriva 18 Mcg/Cap Inhaler] 1 ea IH 0700 inhaler Continue Pregabalin [Lyrica] 300 mg PO BID Duloxetine HCl 30 mg [Cymbalta 30 MG Capsule] 120 mg PO DAILY ARIPiprazole [Aripiprazole] 10 mg PO HS Potassium Chloride 40 meq PO DAILY Atorvastatin Calcium 40 mg PO QHS Trazodone HCl 200 mg PO HS ALPRAZolam 0.25 MG [xanAX 0.25 MG] 0.25 mg PO TID Carvedilol [Coreg ] 6.25 mg PO BID Levothyroxine Sodium 150 Mcg [Synthroid 150 Mcg] 150 mg PO DAILY Nicotine 21 mg [Nicoderm CQ 21 MG] 21 mg TOP DAILY Fluticasone/Umeclidin/Vilanter [Trelegy Ellipta 200-62.5-25] 1 puff IH DAILY Albuterol 8 gm Mdi Hfa [Ventolin Hfa MDI] 2 puff IH Q6H Levofloxacin [Levofloxacin 500 MG Tablet] 500 mg PO DAILY 1 Days #1 tablet Discontinued Prednisone 20 mg [Deltasone 20 mg] 20 mg PO DAILY metOLazone [Metolazone] 5 mg PO UD Losartan Potassium 50 mg [Cozaar 50 MG] 75 mg PO DAILY Additional Instructions: [facility] ORDERS: Hold lasix, metolazone, losartan until follow up with Dr. Trinidad -nephrology - needs to see w/in 1 week CMP tomorrow 11/06 -Recheck potassium level REGULAR DIET PT/OT EVAL AND TREAT TITRATE OXYGEN 3L - 4L PER NC TO KEEP SATS >92% USES CPAP AT NOC PRN NON WTBEARING TO LEFT FOOT SEE FOLLOW UP APT WITH KAROLYN (PATIENT WAS SUPPOSED TO GO TO OR ON 11/05/23 BUT IT WAS CANCELLED D/T COPD EXAC.) SEE ATTACHED MED LIST FOR CURRENT MEDICATION ORDERS Follow up with: KAROLYN BENITO DPM [ACTIVE STAFF] - 11/16/23 10:00 am NADIA SHEFFIELD FNP [Primary Care Provider] - 11/09/23 1:20 pm ([place] Office ) LYNDA AYOUB [ACTIVE STAFF] - 11/11/23 3:30 pm CLAUDIA TRINIDAD MD [CONSULTING PHYSICIAN] - 11/18/23 1:20 pm ([place] [facility])
[2023-11-06 06:11] LABS: ANION GAP 13.1 MEQ/L (5-15)
[2023-11-06] MEDS ORDERED: Sodium Chloride 0.9% 500 ML 500 ML IV ONE (06:21)
[2023-11-06] MEDS: Klor Con PO ONE ×2 (06:32→12:20)
[2023-11-06] MEDS: POTASSIUM CHLORIDE 20 mEq IN WATER 100ML 20 MEQ/100 ML BAG IV SCH (06:32)
[2023-11-06] MEDS ORDERED: Ventolin Hfa MDI IH SCH (09:45)
[2023-11-06] MEDS ORDERED: NON-FORMULARY ITEM (Fluticasone/Umeclidin/Vilanter [Trelegy Ellipta 200-62.5-25] 1 EACH Bl IH SCH (10:00)
[2023-11-06] MEDS: Nicoderm CQ 21 MG TOP SCH (10:09)
[2023-11-06 12:59] VITALS: BP 124/60; PULSE 63; RESP 13; TEMP 98; O2SAT 92
== END 2023-11-06 12:54 | DRG 189 ==
LOC: ED 14:23 → MED SURG 16:33 → OBSVTOIN 16:33
PROVIDERS: ADMIT Internal Medicine; ATTEND Internal Medicine
DX: J96.01 Acute respiratory failure with hypoxia (principal); J44.1 Chronic obstructive pulmonary disease with (acute) exacerbation; N17.9 Acute kidney failure, unspecified; N39.0 Urinary tract infection, site not specified; E87.6 Hypokalemia; I11.0 Hypertensive heart disease with heart failure; I50.9 Heart failure, unspecified; E78.5 Hyperlipidemia, unspecified; E03.9 Hypothyroidism, unspecified; R53.1 Weakness; F41.9 Anxiety disorder, unspecified; S92.902A Unspecified fracture of left foot, initial encounter for closed fracture; G47.33 Obstructive sleep apnea (adult) (pediatric); F17.200 Nicotine dependence, unspecified, uncomplicated; Z99.81 Dependence on supplemental oxygen; Z79.899 Other long term (current) drug therapy
CPT/HCPCS: 0241U; 36000; 36415; 36600; 71045; 80053; 82375; 82803; 83036; 84132; 84484; 85025; 93005; 93041; 94640; 94660; 94760; 94762; 97161; 99285; Q3014; J2919; J3480; J7609; A9270-GY

== ENCOUNTER 2023-11-17 06:35 | Day surgery (SDC) | payer MEDICARE, OTHER ==
[2023-11-17] MEDS ORDERED: TYLENOL EXTRA STRENGTH 500 MG ONE (07:08)
[2023-11-17] MEDS ORDERED: Decadron 4 MG ONE (07:08)
[2023-11-17] MEDS ORDERED: Lactated Ringers 1,000 ML IV ONE (07:09)
[2023-11-17] MEDS ORDERED: celeBREX 100 MG ONE (07:09)
[2023-11-17] MEDS: TYLENOL EXTRA STRENGTH 500 MG PO ONE (07:10)
[2023-11-17] MEDS: celeBREX 100 MG PO ONE (07:10)
[2023-11-17] MEDS: Decadron 4 MG PO ONE (07:10)
[2023-11-17] MEDS: Lactated Ringers 1,000 ML IV SCH (07:11)
[2023-11-17 07:42] LABS: Hematocrit 31.1 % (34.1-44.9); Hemoglobin 9.7 g/dL (11.2-15.7); Mean Cell Volume 88.9 fL (79.4-94.8); Mean Corpuscular Hemoglobin 27.7 pg (25.6-32.2); Mean Corpuscular Hgb Concent. 31.2 g/dL (32.2-35.5); Mean Platelet Volume 9.5 fL (9.4-12.3); Platelet Count 226 x10^3/uL (182-369); Red Cell Distribution Width 18.2 % (11.7-14.4); White Blood Count 14.6 x10^3/uL (3.98-10.04)
[2023-11-17 07:54] LABS: ALBUMIN 3.7 g/dL (3.5-5.0); ANION GAP 8.2 MEQ/L (5-15); BILIRUBIN,TOTAL 0.7 mg/dL (0.2-1.3); Calcium 8.7 mg/dL (8.4-10.2); Creatinine 1 0.65 mg/dL (0.52-1.04); EST GLOMERULAR FILTRATION RATE 99.5 ML/MIN; Total Protein 6.5 g/dL (6.3-8.2)
[2023-11-17 07:57] LABS: Potassium 4.8 mmol/L (3.5-5.1)
[2023-11-17] MEDS ORDERED: Versed 2 MG/2 ML Injection ONE (08:22)
[2023-11-17] MEDS ORDERED: SUBLIMAZE 100 MCG/2 ML ONE ×2 (08:22→13:01)
[2023-11-17] MEDS ORDERED: Xylocaine-Mpf 2% 5 Ml Vial ONE ×2 (08:23→09:51)
[2023-11-17] MEDS ORDERED: DEXMEDETOMIDINE 80 MCG/20ML-NS IV ONE (08:23)
[2023-11-17] MEDS ORDERED: EXPAREL 133 MG/10 ML VIAL IJ ONE (08:24)
[2023-11-17] MEDS ORDERED: Marcaine Mpf 0.5% Vial 30 Ml ONE ×2 (08:24→10:17)
--- NOTE | 2023-11-17 09:11 | XRAY ---
Indication: CHF. Comparison: November 03, 2023 Portable chest demonstrates worsening mild left base and new minimal right base subsegmental atelectasis/scarring. Also new tiny left effusion. Heart now borderline enlarged. Findings may represent mild or early cardiac decompensation/CHF.
[2023-11-17] MEDS ORDERED: Marcaine Spinal Ampul IJ ONE (09:51)
[2023-11-17] MEDS ORDERED: DIPRIVAN 200 MG/20 ML IV ONE ×3 (09:51→10:57)
[2023-11-17] MEDS ORDERED: KEFZOL 1 GM ONE (10:01)
[2023-11-17] MEDS ORDERED: Xylocaine 1% Vial 30 ML PF IJ ONE (10:18)
--- NOTE | 2023-11-17 12:29 | XRAY ---
Indication: Screw placement left calcaneus, talus, cuboid. Intraoperative fluoroscopy provided for 8 minute 29 seconds. 51 digital spot images submitted for interpretation ultimately demonstrates 2 screws traversing talonavicular joint, 2 screws traversing 1st/2nd tarsometatarsal, and 2 screws traversing cuboid calcaneal articulation. Correlate with intraoperative findings/report.
[2023-11-17] MEDS ORDERED: TRANDATE 20 MG/4 ML SYRINGE IV ONE (12:44)
[2023-11-17] MEDS ORDERED: Hydromorphone 1 mg/ml Injection ONE (13:01)
[2023-11-17 13:05] LABS: Hematocrit 31.5 % (34.1-44.9); Hemoglobin 9.3 g/dL (11.2-15.7)
[2023-11-17 13:57] LABS: ABO TYPING O; Antibody Screen NEGATIVE (NEGATIVE); RH TYPING POSITIVE
--- NOTE | 2023-11-17 15:20 | XRAY ---
Eight minutes and 29 seconds of fluoroscopy was used in surgery for a screw placement left calcaneus, talus, cuboid.
--- NOTE | 2023-11-17 15:54 | PCM.HP ---
History of Present Illness - Chief Complaint Chief Complaint: left foot fracture Date: 11/17/23 History of Present Illness: Ms Hoskins is a 63 year old female with a pmhx of COPD (3-4L baseline oxygen),CHF, HLD, HTN, GUIDO, emphysema, hypothyroidism, anxiety/panic disorder, and peripheral neuropathy patient of Dr. Blas (podiatry) directly admitted for observation status post a gastrocnemius recession left gen transverse midtarsal anthrodesis poss subtalor and calcaneal/cuboid joint arthrodesis. Patient is doing well during my interview with no complaints. Surgical site is CDI with dressing applied. Rates pain at 0/10. Plan to observe overnight and release back to nursing facility tomorrow if labs and vitals remain stable. Currently at baseline oxygen of 3L. Denies fever,cough, sob, cp, abdominal pain, GARCIA, dizziness, N/V/D. - Review of Systems Constitutional: No Symptoms Eyes: No Symptoms Ears, Nose, & Throat: No Symptoms Respiratory: No Symptoms Cardiac: No Symptoms Abdominal/Gastrointestinal: No Symptoms Genitourinary Symptoms: No Symptoms Musculoskeletal: No Symptoms Skin: Other (Surgical wound to LLE - wrapped in surgical dressing CDI) Neurological: No Symptoms Psychological: Anxiety Endocrine: No Symptoms Hematologic/Lymphatic: No Symptoms Immunological/Allergic: No Symptoms Medications & Allergies Home Medications: Home Medication List ARIPiprazole [Aripiprazole] 10 mg PO HS 01/11/20 [History Confirmed 11/06/23] Duloxetine HCl 30 mg [Cymbalta 30 MG Capsule] 120 mg PO DAILY 01/11/20 [History Confirmed 11/06/23] Pregabalin [Lyrica] 300 mg PO BID 01/11/20 [History Confirmed 11/06/23] Potassium Chloride 40 meq PO DAILY 08/28/21 [History Confirmed 11/06/23] Atorvastatin Calcium 40 mg PO QHS 10/05/22 [History Confirmed 11/06/23] ALPRAZolam 0.25 MG [xanAX 0.25 MG] 0.25 mg PO TID 10/28/23 [History Confirmed 11/16/23] Trazodone HCl 200 mg PO HS 10/28/23 [History Confirmed 11/06/23] Carvedilol [Coreg ] 6.25 mg PO BID 10/30/23 [History Confirmed 11/16/23] Levothyroxine Sodium 150 Mcg [Synthroid 150 Mcg] 150 mg PO DAILY 11/03/23 [History Confirmed 11/16/23] Albuterol 2.5 mg/3 ml Neb [Proventil 2.5 mg/3 ml Neb] 2.5 mg IH QIDRT 11/06/23 [Rx Confirmed 11/16/23] Albuterol 8 gm Mdi Hfa [Ventolin Hfa MDI] 2 puff IH Q6H 11/06/23 [History Confirmed 11/16/23] Tiotropium [place] Inhaler [Spiriva 18 Mcg/Cap Inhaler] 1 ea IH 0700 inhaler 11/06/23 [Rx Confirmed 11/16/23] Prednisone 20 mg [Deltasone 20 mg] 20 mg PO DAILY 11/17/23 [History Confirmed 11/17/23] Allergies/Adverse Reactions: Allergies Allergy/AdvReac Type Severity Reaction Status Date / Time gabapentin Allergy Severe pain Verified 10/30/23 15:46 ceftriaxone Allergy Verified 10/30/23 15:46 - Past Medical History Past Medical History: Yes Neurological History: Peripheral Neuropathy ENT History: Cataracts Cardiac History: Congestive Heart Failure, High Cholesterol, Hypertension Respiratory History: CHF, COPD, Emphysema, Sleep Apnea, Other Endocrine Medical History: Hyperthyroidism, Hypoglycemia Musculoskelatal History: Arthritis GI Medical History: Other History: No Pertinent History Pyscho-Social History: Anxiety, Depression Reproductive Disorders: No Pertinent History Comment: trigeminal neuralgia, sepsis, hypokalemia, COVID, hypoxemia, b12 deficiency, wounds, hypercarbia, right ankle fracture, left foot fracture, renal cyst, hyponatremia - Past Surgical History Past Surgical History: Yes Neuro Surgical History: No Pertinent History Cardiac History: No Pertinent History Respiratory Surgery: No Pertinent History GI Surgical History: Appendectomy Genitourinary Surgical Hx: No Pertinent History Musculskeletal Surgical Hx: Orthopedic Surgery Female Surgical History: No Pertinent History Other Surgical History: elbow surgery, skin cancer removed, right foot surgery - 12/27/21 - Social History Smoking Status: Former smoker How long have you smoked: 30 years Exposure to second hand smoke: No Alcohol: None Drug Use: none - Social Determinants of Health Will the patient participate in the screening: Yes Do you worry about a steady place to live?: No In the past 12 months,have you had to go without utilities?: No Have you or anyone in your house had to go without enough: No Transportation Issues: No Has anyone in your support network made you feel unsafe?: No Does the patient want assistance with any of the above?: No Comment: Currently utilizing [facility] - Physical Exam Vital Signs: Vital Signs - 24 hr Temp Pulse Resp BP Pulse Ox 11/17/23 07:21 98.5 F 66 18 188/90 98 11/17/23 07:01 98.5 F 66 18 188/90 98 General Appearance: no apparent distress Neurologic Exam: alert, oriented x 3, cooperative Eye Exam: PERRL/EOMI Ears, Nose, Throat Exam: normal ENT inspection Neck Exam: normal inspection Respiratory Exam: diminished breath sounds Cardiovascular Exam: regular rate/rhythm, normal heart sounds Gastrointestinal/Abdomen Exam: soft, normal bowel sounds Pelvic Exam: not done Rectal Exam: deferred Back Exam: normal inspection Extremity Exam: other (Left foot in surgical dressing CDI) Skin Exam: pale Results - Labs Lab/Micro Results: Lab Results-Last 24 Hours 11/17/23 11/17/23 11/17/23 Range/Units 07:35 07:35 07:35 WBC 14.6 H (3.98-10.04) x10^3/uL RBC 3.50 L (3.93-5.22) x10^6/uL Hgb 9.7 L (11.2-15.7) g/dL Hct 31.1 L (34.1-44.9) % MCV 88.9 (79.4-94.8) fL MCH 27.7 (25.6-32.2) pg MCHC 31.2 L (32.2-35.5) g/dL RDW 18.2 H (11.7-14.4) % Plt Count 226 (182-369) x10^3/uL MPV 9.5 (9.4-12.3) fL Sodium 140 (135-145) mmol/L Potassium 4.8 (3.5-5.1) mmol/L Chloride 104 (98-107) mmol/L Carbon Dioxide 32 H (22-30) mmol/L Anion Gap 8.2 (5-15) MEQ/L BUN 19 H (7-17) mg/dL Creatinine 0.65 (0.52-1.04) mg/dL Estimated GFR 99.5 ML/MIN Glucose 128 H (74-106) mg/dL Calcium 8.7 (8.4-10.2) mg/dL Total Bilirubin 0.70 (0.2-1.3) mg/dL AST 26 (14-36) U/L ALT 26 (0-35) U/L Alkaline Phosphatase 103 (38-126) U/L NT-Pro-B Natriuret Pep 283 (<300) pg/mL Serum Total Protein 6.5 (6.3-8.2) g/dL Albumin 3.7 (3.5-5.0) g/dL ABO Group Rh Factor Antibody Screen (NEGATIVE) 11/17/23 11/17/23 Range/Units 12:48 12:48 WBC (3.98-10.04) x10^3/uL RBC (3.93-5.22) x10^6/uL Hgb 9.3 L (11.2-15.7) g/dL Hct 31.5 L (34.1-44.9) % MCV (79.4-94.8) fL MCH (25.6-32.2) pg MCHC (32.2-35.5) g/dL RDW (11.7-14.4) % Plt Count (182-369) x10^3/uL MPV (9.4-12.3) fL Sodium (135-145) mmol/L Potassium (3.5-5.1) mmol/L Chloride (98-107) mmol/L Carbon Dioxide (22-30) mmol/L Anion Gap (5-15) MEQ/L BUN (7-17) mg/dL Creatinine (0.52-1.04) mg/dL Estimated GFR ML/MIN Glucose (74-106) mg/dL Calcium (8.4-10.2) mg/dL Total Bilirubin (0.2-1.3) mg/dL AST (14-36) U/L ALT (0-35) U/L Alkaline Phosphatase (38-126) U/L NT-Pro-B Natriuret Pep (<300) pg/mL Serum Total Protein (6.3-8.2) g/dL Albumin (3.5-5.0) g/dL ABO Group O Rh Factor POSITIVE Antibody Screen NEGATIVE (NEGATIVE) - Radiology Impressions Radiology Exams & Impressions: Radiology Procedures Category Date Time Status FLUOROSCOPY UP TO 1 HR Routine Exams 11/17/23 06:56 Completed FOOT (MINIMUM 3 VIEWS) Routine Exams 11/17/23 06:56 Completed Portable Chest [CHEST 1 VIEW (PORTABLE)] Stat Exams 11/17/23 08:20 Completed Assessment/Plan (1) Foot fracture, left Current Visit: No Status: Acute Assessment & Plan: -Reviewed CT LLE from 10/30/23 Impression: 1. Nondisplaced acute fractures proximal 5th phalanx and lateral cuboid. 2. Old nonunited fractures base 1st-3rd metatarsals with 1st tarsometatarsal subluxation. Old displaced fracture anterior calcaneus. 3. Diffuse soft tissue swelling, osteopenia, and posterior/plantar heel spurs -Podiatry following - agree with plan - patient to start Eliquis/ASA on discharge - Levofloxacin x 10 days, pain control, NWB to left ext -POD #0 gastrocnemius recession left gen transverse midtarsal anthrodesis poss subtalor and calcaneal/cuboid joint arthrodesis -H&H -Dressing changes per podiatry- do not alter surgical dressing - podiatry will follow patient at nursing facility -dressing to remain dry -elevate affected ext -ice behind knee to reduce inflammation 10min on per hour max Code(s): S92.902A - UNSP FRACTURE OF LEFT FOOT, INIT ENCNTR FOR CLOSED FRACTURE (2) COPD (chronic obstructive pulmonary disease) Current Visit: Yes Status: Acute Assessment & Plan: -at baseline 3L oxygen -supplemental oxygen with goal spo2 89-92% --ABG if significant lethargy/hypoxia -continue home trelegy -Nebs prn -RT eval (3) CHF (congestive heart failure) Current Visit: Yes Status: Acute Assessment & Plan: -Does not appear to be in exacerbation -No recent echo -continue home meds Code(s): I50.9 - HEART FAILURE, UNSPECIFIED (4) HLD (hyperlipidemia) Current Visit: Yes Status: Acute Assessment & Plan: -continue home statin Code(s): E78.5 - HYPERLIPIDEMIA, UNSPECIFIED (5) HTN (hypertension) Current Visit: Yes Status: Acute Assessment & Plan: -stable -continue home meds Code(s): I10 - ESSENTIAL (PRIMARY) HYPERTENSION (6) Emphysema lung Current Visit: Yes Status: Acute Assessment & Plan: -noted, adds complexity Code(s): J43.9 - EMPHYSEMA, UNSPECIFIED (7) Hypothyroid Current Visit: Yes Status: Acute Assessment & Plan: -continue home synthroid Code(s): E03.9 - HYPOTHYROIDISM, UNSPECIFIED (8) Panic disorder Current Visit: Yes Status: Acute Assessment & Plan: -continue home meds Code(s): F41.0 - PANIC DISORDER [EPISODIC PAROXYSMAL ANXIETY] (9) Anxiety Current Visit: Yes Status: Acute Assessment & Plan: -continue home meds Code(s): F41.9 - ANXIETY DISORDER, UNSPECIFIED (10) Anemia Current Visit: Yes Status: Acute Assessment & Plan: -monitor H&H - if hgb < 7 -transfuse Code(s): D64.9 - ANEMIA, UNSPECIFIED (11) Peripheral neuropathy Current Visit: Yes Status: Acute Assessment & Plan: -continue lyrica VTE: per podiatry Dispo: tomorrow pending vitals/labs Code(s): G62.9 - POLYNEUROPATHY, UNSPECIFIED (12) GUIDO (obstructive sleep apnea) Current Visit: Yes Status: Acute Assessment & Plan: -Patient does not wish to use CPAP at this time Code(s): G47.33 - OBSTRUCTIVE SLEEP APNEA (ADULT) (PEDIATRIC) Telemedicine Encounter - Telemedicine Encounter Telemedicine Encounter: "The entirety of this encounter was performed via Telemedicine" This visit was performed using real-time audio and video connection between my location and thepatients locationwith the assistance of a surrogateat the patients location. Written or verbal consent was obtained from the patient/guardian to perform this visit [facility]. Any patient questions regarding the telemedicine interaction were answered.
[2023-11-17] MEDS ORDERED: Ventolin Hfa MDI IH SCH (16:00)
[2023-11-17] MEDS ORDERED: Zofran 4 MG/2 ML VIAL IV PRN (16:25)
[2023-11-17] MEDS ORDERED: DUONEB 0.5-3 MG/3 ml Neb IH PRN (16:25)
[2023-11-17] MEDS: Cymbalta 30 MG Capsule PO SCH (16:41)
[2023-11-17] MEDS: SYNTHROID 150 MCG PO SCH (16:43)
[2023-11-17 17:20] LABS: Hematocrit 27.2 % (34.1-44.9); Hemoglobin 8.3 g/dL (11.2-15.7)
[2023-11-17] MEDS: Oxy-IR 5 MG PO PRN (18:09)
[2023-11-17] MEDS: PROVENTIL 2.5 MG/3 ML NEB IH SCH (18:38)
[2023-11-17] MEDS: TYLENOL 325 MG PO PRN (20:10)
[2023-11-17] MEDS: Desyrel 150 MG PO SCH (21:25)
[2023-11-17] MEDS: DESYREL 50 MG PO SCH (21:25)
[2023-11-17] MEDS: ZOCOR 20MG PO SCH (21:25)
[2023-11-17] MEDS: Abilify 10 MG PO SCH (21:26)
[2023-11-17] MEDS: xanAX 0.25 MG PO SCH (21:26)
[2023-11-17] MEDS: LYRICA 150MG PO SCH (21:26)
[2023-11-17] MEDS: Coreg PO SCH (21:26)
[2023-11-17] MEDS ORDERED: NON-FORMULARY ITEM (Aripiprazole [Aripiprazole] 5 MG Tablet) PO SCH (22:00)
[2023-11-17] MEDS ORDERED: NON-FORMULARY ITEM (Pregabalin [Lyrica] 300 MG Capsule) PO SCH (22:00)
[2023-11-17] MEDS ORDERED: LIPITOR 40MG PO SCH (22:00)
[2023-11-17] MEDS ORDERED: NON-FORMULARY ITEM (Trazodone Hcl [Trazodone Hcl] 100 MG Tablet) PO SCH (22:00)
--- NOTE | 2023-11-18 05:10 | PCM.DS ---
Discharge Summary Date of Admission: 11/18/23 Date of Discharge: 11/18/23 Admitting Physician: Santosh Primary Care Provider: CARINE MORENO Allergies Allergies gabapentin Allergy (Severe, Verified 10/30/23 15:46) pain ceftriaxone Allergy (Verified 10/30/23 15:46) Hospital Summary - Hospital Course Hospital Course: yesi Hoskins is a 63 year old female with a pmhx of COPD (3-4L baseline oxygen),CHF, HLD, HTN, GUIDO, emphysema, hypothyroidism, anxiety/panic disorder, and peripheral neuropathy patient of Dr. Blas (podiatry) directly admitted for observation status post a gastrocnemius recession left gen transverse midtarsal anthrodesis poss subtalor and calcaneal/cuboid joint arthrodesis. Patient is doing well during my interview with no complaints. Surgical site is CDI with dressing applied. Rates pain at 0/10. Plan to observe overnight and release back to nursing facility tomorrow if labs and vitals remain stable. Currently at baseline oxygen of 3L. Denies fever,cough, sob, cp, abdominal pain, GARCIA, dizziness, N/V/D. Discharge Note New Medications: ASA/levaquin/pain meds - per podiatry Follow Up: podiatry Latest Assessment & Plan (1) Foot fracture, left Current Visit: No Status: Acute Assessment & Plan: -Reviewed CT LLE from 10/30/23 Impression: 1. Nondisplaced acute fractures proximal 5th phalanx and lateral cuboid. 2. Old nonunited fractures base 1st-3rd metatarsals with 1st tarsometatarsal subluxation. Old displaced fracture anterior calcaneus. 3. Diffuse soft tissue swelling, osteopenia, and posterior/plantar heel spurs -Podiatry following - agree with plan - patient to start ASA 325mg daily on discharge - Levofloxacin x 10 days, pain control, NWB to left ext -POD #0 gastrocnemius recession left gen transverse midtarsal anthrodesis poss subtalor and calcaneal/cuboid joint arthrodesis -H&H -Dressing changes per podiatry- do not alter surgical dressing - podiatry will follow patient at nursing facility -dressing to remain dry -elevate affected ext -ice behind knee to reduce inflammation 10min on per hour max Code(s): S92.902A - UNSP FRACTURE OF LEFT FOOT, INIT ENCNTR FOR CLOSED FRACTURE (2) COPD (chronic obstructive pulmonary disease) Current Visit: Yes Status: Acute Assessment & Plan: -at baseline 3L oxygen -supplemental oxygen with goal spo2 89-92% --ABG if significant lethargy/hypoxia -continue home trelegy -Nebs prn -RT eval (3) CHF (congestive heart failure) Current Visit: Yes Status: Acute Assessment & Plan: -Does not appear to be in exacerbation -No recent echo -continue home meds Code(s): I50.9 - HEART FAILURE, UNSPECIFIED (4) HLD (hyperlipidemia) Current Visit: Yes Status: Acute Assessment & Plan: -continue home statin Code(s): E78.5 - HYPERLIPIDEMIA, UNSPECIFIED (5) HTN (hypertension) Current Visit: Yes Status: Acute Assessment & Plan: -stable -continue home meds Code(s): I10 - ESSENTIAL (PRIMARY) HYPERTENSION (6) Emphysema lung Current Visit: Yes Status: Acute Assessment & Plan: -noted, adds complexity Code(s): J43.9 - EMPHYSEMA, UNSPECIFIED (7) Hypothyroid Current Visit: Yes Status: Acute Assessment & Plan: -continue home synthroid Code(s): E03.9 - HYPOTHYROIDISM, UNSPECIFIED (8) Panic disorder Current Visit: Yes Status: Acute Assessment & Plan: -continue home meds Code(s): F41.0 - PANIC DISORDER [EPISODIC PAROXYSMAL ANXIETY] (9) Anxiety Current Visit: Yes Status: Acute Assessment & Plan: -continue home meds Code(s): F41.9 - ANXIETY DISORDER, UNSPECIFIED (10) Anemia Current Visit: Yes Status: Acute Assessment & Plan: -monitor H&H - if hgb < 7 -transfuse Code(s): D64.9 - ANEMIA, UNSPECIFIED (11) Peripheral neuropathy Current Visit: Yes Status: Acute Assessment & Plan: -continue lyrica VTE: per podiatry Dispo: tomorrow pending vitals/labs Code(s): G62.9 - POLYNEUROPATHY, UNSPECIFIED (12) GUIDO (obstructive sleep apnea) Current Visit: Yes Status: Acute Assessment & Plan: -Patient does not wish to use CPAP at this time Code(s): G47.33 - OBSTRUCTIVE SLEEP APNEA (ADULT) (PEDIATRIC) I spent 35 minutes [id number] with the patient on the day of discharge pe rforming discharge exam, discussing hospital stay and discharge instructions with patient and caregivers, preparation of discharge records, prescriptions & referral forms and addressing any questions/concerns the patient had as documented above. - Vitals & Intake/Output Vital Signs: Vital Signs Temperature 97.5 F 11/18/23 04:00 Pulse Rate 74 11/18/23 04:00 Respiratory Rate 18 11/18/23 04:00 Blood Pressure 117/58 11/18/23 04:00 O2 Sat by Pulse Oximetry 94 L 11/18/23 04:00 Intake & Output: Intake & Output 11/15/23 11/16/23 11/17/23 11/18/23 11:59 11:59 11:59 11:59 Intake Total 580 Balance 580 Weight 97.6 kg - Lab Result Diagrams: 11/18/23 05:20 11/17/23 07:35 Lab Results-Last 24 Hrs: Lab Results-Last 24 Hours 11/17/23 11/17/23 11/17/23 Range/Units 07:35 07:35 07:35 WBC 14.6 H (3.98-10.04) x10^3/uL RBC 3.50 L (3.93-5.22) x10^6/uL Hgb 9.7 L (11.2-15.7) g/dL Hct 31.1 L (34.1-44.9) % MCV 88.9 (79.4-94.8) fL MCH 27.7 (25.6-32.2) pg MCHC 31.2 L (32.2-35.5) g/dL RDW 18.2 H (11.7-14.4) % Plt Count 226 (182-369) x10^3/uL MPV 9.5 (9.4-12.3) fL Sodium 140 (135-145) mmol/L Potassium 4.8 (3.5-5.1) mmol/L Chloride 104 (98-107) mmol/L Carbon Dioxide 32 H (22-30) mmol/L Anion Gap 8.2 (5-15) MEQ/L BUN 19 H (7-17) mg/dL Creatinine 0.65 (0.52-1.04) mg/dL Estimated GFR 99.5 ML/MIN Glucose 128 H (74-106) mg/dL Calcium 8.7 (8.4-10.2) mg/dL Total Bilirubin 0.70 (0.2-1.3) mg/dL AST 26 (14-36) U/L ALT 26 (0-35) U/L Alkaline Phosphatase 103 (38-126) U/L NT-Pro-B Natriuret Pep 283 (<300) pg/mL Serum Total Protein 6.5 (6.3-8.2) g/dL Albumin 3.7 (3.5-5.0) g/dL ABO Group Rh Factor Antibody Screen (NEGATIVE) 11/17/23 11/17/23 11/17/23 Range/Units 12:48 12:48 17:17 WBC (3.98-10.04) x10^3/uL RBC (3.93-5.22) x10^6/uL Hgb 9.3 L 8.3 L (11.2-15.7) g/dL Hct 31.5 L 27.2 L (34.1-44.9) % MCV (79.4-94.8) fL MCH (25.6-32.2) pg MCHC (32.2-35.5) g/dL RDW (11.7-14.4) % Plt Count (182-369) x10^3/uL MPV (9.4-12.3) fL Sodium (135-145) mmol/L Potassium (3.5-5.1) mmol/L Chloride (98-107) mmol/L Carbon Dioxide (22-30) mmol/L Anion Gap (5-15) MEQ/L BUN (7-17) mg/dL Creatinine (0.52-1.04) mg/dL Estimated GFR ML/MIN Glucose (74-106) mg/dL Calcium (8.4-10.2) mg/dL Total Bilirubin (0.2-1.3) mg/dL AST (14-36) U/L ALT (0-35) U/L Alkaline Phosphatase (38-126) U/L NT-Pro-B Natriuret Pep (<300) pg/mL Serum Total Protein (6.3-8.2) g/dL Albumin (3.5-5.0) g/dL ABO Group O Rh Factor POSITIVE Antibody Screen NEGATIVE (NEGATIVE) - Radiology Exams Ordered Rad Exams-Entire Visit: Radiology Procedures Category Date Time Status FLUOROSCOPY UP TO 1 HR Routine Exams 11/17/23 06:56 Completed FOOT (MINIMUM 3 VIEWS) Routine Exams 11/17/23 06:56 Completed Portable Chest [CHEST 1 VIEW (PORTABLE)] Stat Exams 11/17/23 08:20 Completed - Procedures and Test Procedures and Tests throughout Hospitalization: Therapy Orders & Screens 11/17/23 07:03 EKG STAT Comment: 11/17/23 16:12 Oxygen Nasal Cannula 3 lpm Comment: Diagnosis: left foot fracture Respiratory Therapy Assessment DAILY Comment: Diagnosis: left foot fracture 11/17/23 16:25 Respiratory Therapy Consult ONCE Comment: Reason For Exam: Diagnosis: left foot fracture Discharge Exam General Appearance: no apparent distress, anxiety Neurologic Exam: alert, oriented x 3, cooperative Eye Exam: PERRL Ears, Nose, Throat Exam: normal ENT inspection Neck Exam: normal inspection Respiratory Exam: normal breath sounds, lungs clear Cardiovascular Exam: regular rate/rhythm, normal heart sounds Gastrointestinal/Abdomen Exam: soft, normal bowel sounds Pelvic Exam: deferred Rectal Exam: deferred Back Exam: normal inspection Extremity Exam: other (Left foot covered in surgical dressing) Skin Exam: pale Final Diagnosis/Problem List - Final Discharge Diagnosis/Problem (1) Foot fracture, left Current Visit: No Status: Acute Code(s): S92.902A - UNSP FRACTURE OF LEFT FOOT, INIT ENCNTR FOR CLOSED FRACTURE (2) COPD (chronic obstructive pulmonary disease) Current Visit: Yes Status: Acute (3) CHF (congestive heart failure) Current Visit: Yes Status: Acute Code(s): I50.9 - HEART FAILURE, UNSPECIFIED (4) HLD (hyperlipidemia) Current Visit: Yes Status: Acute Code(s): E78.5 - HYPERLIPIDEMIA, UNSPECIFIED (5) HTN (hypertension) Current Visit: Yes Status: Acute Code(s): I10 - ESSENTIAL (PRIMARY) HYPERTENSION (6) Emphysema lung Current Visit: Yes Status: Acute Code(s): J43.9 - EMPHYSEMA, UNSPECIFIED (7) Hypothyroid Current Visit: Yes Status: Acute Code(s): E03.9 - HYPOTHYROIDISM, UNSPECIFIED (8) Panic disorder Current Visit: Yes Status: Acute Code(s): F41.0 - PANIC DISORDER [EPISODIC PAROXYSMAL ANXIETY] (9) Anxiety Current Visit: Yes Status: Acute Code(s): F41.9 - ANXIETY DISORDER, UNSPECIFIED (10) Anemia Current Visit: Yes Status: Acute Code(s): D64.9 - ANEMIA, UNSPECIFIED (11) Peripheral neuropathy Current Visit: Yes Status: Acute Code(s): G62.9 - POLYNEUROPATHY, UNSPECIFIED (12) GUIDO (obstructive sleep apnea) Current Visit: Yes Status: Acute Code(s): G47.33 - OBSTRUCTIVE SLEEP APNEA (ADULT) (PEDIATRIC) - Discharge Disposition: DC TO ANY "OTHER" [facility] Condition: Stable Prescriptions: New Aspirin EC 325 mg [Ecotrin 325 MG] 325 mg PO DAILY 30 Days #30 tablet Levofloxacin [Levofloxacin 500 MG Tablet] 500 mg PO DAILY tablet Continue Pregabalin [Lyrica] 300 mg PO BID Duloxetine HCl 30 mg [Cymbalta 30 MG Capsule] 120 mg PO DAILY ARIPiprazole [Aripiprazole] 10 mg PO HS Potassium Chloride 40 meq PO DAILY Atorvastatin Calcium 40 mg PO QHS Trazodone HCl 200 mg PO HS ALPRAZolam 0.25 MG [xanAX 0.25 MG] 0.25 mg PO TID Carvedilol [Coreg ] 6.25 mg PO BID Levothyroxine Sodium 150 Mcg [Synthroid 150 Mcg] 150 mg PO DAILY Albuterol 8 gm Mdi Hfa [Ventolin Hfa MDI] 2 puff IH Q6H Albuterol 2.5 mg/3 ml Neb [Proventil 2.5 mg/3 ml Neb] 2.5 mg IH QIDRT Tiotropium [place] Inhaler [Spiriva 18 Mcg/Cap Inhaler] 1 ea IH 0700 inhaler Prednisone 20 mg [Deltasone 20 mg] 20 mg PO DAILY Additional Instructions: long-term instruction -Do not alter surgical dressing until podiatry follow up -Dressing to remain CDI -elevate operative extremity -Ice behind left knee to reduce inflammation - 10mins on per hour max -NWB to left ext -CBC in the morning -keep midline - routine flushes per [facility] protocol Follow up with: KAROLYN BENITO DPM [ACTIVE STAFF] - 11/24/23 2:00 pm
[2023-11-18 05:24] LABS: Hemoglobin 7.6 g/dL (11.2-15.7)
[2023-11-18] MEDS: Spiriva 18 Mcg/Cap Inhaler IH SCH (06:17)
[2023-11-18] MEDS: DELTASONE 20 MG PO SCH (08:54)
[2023-11-18] MEDS: Klor Con PO SCH (08:54)
[2023-11-18] MEDS: Levofloxacin 500 MG Tablet PO SCH (08:55)
[2023-11-18 11:14] VITALS: O2SAT 96
[2023-11-18 12:13] VITALS: BP 106/55; PULSE 79; RESP 18; TEMP 97.7
--- NOTE | 2023-11-18 21:51 | OP ---
SURGERY DATE/TIME: 11/17/2023 2078-2400 PREOPERATIVE DIAGNOSES: 1) Gastrocnemius equinus. 2) Lisfranc fracture-dislocation, left foot, severe divergent type. 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 POSTOPERATIVE DIAGNOSES: 1) Gastrocnemius equinus. 2) Lisfranc fracture-dislocation, left foot, severe divergent type. 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 PROCEDURES: 1) Gastrocnemius recession. 2) Triple arthrodesis including subtalar joint, talonavicular joint and calcaneocuboid joint. 3) Multiple transverse tarsometatarsal joints, left mid foot. SURGEON: Wan Ross DPM CHIPS SCREEN TENDER: None. ANESTHESIA: Monitored anesthesia care with a preoperative popliteal and saphenous block. See anesthesia report for details. HEMOSTASIS: A pressure dressing. ESTIMATED BLOOD LOSS: Approximately 300 mL. MATERIALS: A 7.0 x 75 mm partially threaded headed cannulated screw to the subtalar joint x2, 2 mL of StrataGraft Plus with bone marrow aspirate, a 7.0 x 125 mm for the 1st ray, for the 2nd ray a 4.5 x 125 mm, and then two 4.0 x 65 and 4.0 x 60 headless compression screws to the calcaneocuboid joint, 4-0 Monocryl, 3-0 nylon. INJECTABLES: See anesthesia report for details. INDICATIONS: The patient is a very well known patient to our service. In the past, she has had a very similar fracture-dislocation to her right foot as well as an ankle fracture that were fixated and she is progressing well. Patient did suffer a fall, and as a result of the fall, suffered a very similar fracture to her left foot which resulted in a fracture-dislocation of the mid foot with complete divergent type of the Lisfranc fracture with medial subluxation of the 1st metatarsal base and then lateral subluxation of the 2nd and 3rd tarsometatarsal joints and significant 1st ray. The patient's medial longitudinal arch was completely lost as a result of this fracture which occurred approximately 4 weeks ago. Patient was scheduled for the procedure earlier on in the week; however, had an exacerbation of COPD and anxiety due to the fact that she was alone and was anxious about her postoperative care. We have secured home health care for her during this period of time and as a result we have decided to proceed with surgical intervention for fixation, alleviation of pain and allowing for patient to have adequate care at a nursing facility from that standpoint. Patient has been made aware of all risks, complications and benefits, including but not limited to infection, hematoma, seroma, possibility of delayed wound healing, non-wound healing which is a serious potential given her COPD and reduced oxygen saturation. As a result, minimally invasive efforts are being taken to reduce incision and healing time from that standpoint. Patient has also been made aware of delayed bone healing and possibility of painful, irritating hardware. Patient has had plenty of time to ask questions, which were answered to her apparent satisfaction. At this time, she has decided to proceed. DESCRIPTION OF PROCEDURE AND FINDINGS: Patient was brought in the PACU prior to the procedure and provided a popliteal and saphenous block as well as a midline placement. Please see anesthesia report for details. Following this, patient was brought in the operating room, placed on the operating room table in the supine position. At this time, monitored anesthesia care was administered and the patient's left lower extremity was prepped and draped in the typical sterile fashion. At this time, attention was directed to the posterior medial aspect of the palpable dell of where the gastrocnemius muscle belly and the distal 3rd of the leg. At the posteromedial interval an incision was made down to the level of skin. Blunt dissection was carried to the level of the crural fascia which was then incised with a 15 blade. Following this, blunt dissection was carried down to find the gastrocnemius aponeurosis. From that standpoint, a pediatric speculum was introduced. Army-Ewing retractors were then introduced to gain adequate exposure of the gastrocnemius and a clean 10 blade was utilized to incise the gastrocnemius aponeurosis releasing the fascial layer completely, exposing the muscle without incising the muscle underneath. From that standpoint, copious amounts of sterile saline were utilized to flush the surgical site. 2-0 Vicryl was utilized to coapt the fascial layer and the subcutaneous layer in simple interrupted buried-type fashion, and then 3-0 nylon was utilized in a horizontal mattress-type fashion to jyoti and coapt the skin edges. From that standpoint, a stab incision was made at the lateral aspect of the calcaneus under fluoroscopic guidance making sure to be within the safe zone. Blunt dissection was carried down utilizing a curved mini hemostat and a trocar was then introduced into the calcaneus removing approximately 20 mL of bone marrow aspirate from this site. This was then removed from the site and then attention was directed to the subtalar joint, which under fluoroscopic guidance a Michelle luc and a 15 blade was utilized to make a small stab incision. Blunt dissection was carried down and then a Michelle luc was utilized to resect the posterior facet as well as the middle facet under fluoroscopic guidance. From this standpoint, copious amounts of sterile saline were utilized to flush the surgical site. This was temporarily fixated utilizing two 2.4 K wires. From that standpoint, attention was directed to the talonavicular joint and the 1st and 2nd tarsometatarsal joints where the joints were prepped in similar fashions utilizing minimally invasive methods, utilizing a Michelle luc with bulb irrigation to reduce the possibility of thermal necrosis. Once this was accomplished, there was difficulty in pulling the 2nd tarsometatarsal joint into alignment so decision was made to proceed with a 2nd metatarsal base resection which was performed as close to the met diaphyseal junction. This was clamped down once the K wire was introduced into the 1st metatarsal to hold the position and hold into a more anatomical alignment. From that standpoint, the K wire was then introduced into the 2nd metatarsal head and placed across the talonavicular tarsometatarsal joints and navicular cuneiform joints. From that standpoint, temporary fixation was placed. The calcaneocuboid joint was then prepped in a similar fashion and 2 K wires were placed to hold the position in adequate alignment. From that standpoint, the 2 mL of StrataGraft Plus with BMA harvest was then packed into the subtalar, talonavicular, and the tarsometatarsal joints in order to gain adequate [id number] contact and then fixation was achieved utilizing a 7.0 x 75 mm for both the subtalar joint screws perpendicular to the posterior facet. Then, we moved on to the beaming of the 7.0 x 125 mm for the 1st ray and a 4.5 x 125 mm for the 2nd ray. Following this, the 2 screws for the calcaneocuboid joint were placed, a 4.0 x 65 and a 4.0 x 60 headless compression screw were then introduced. This was checked under fluoroscopic guidance and deemed to be in an adequate position. From that standpoint, all incisions were cleansed with copious amounts of sterile saline and 4-0 Monocryl was utilized to coapt the subcutaneous skin edges and horizontal mattress was utilized to jyoti the skin edges with 3-0 nylon. From that standpoint, the leg was cleansed with sterile saline and dried. A dressing consisting of Betadine, Adaptic, 4 x 4, Kerlix, ABD and a posterior sling with sugar tong was applied to the left lower extremity. The patient was then reversed from anesthesia and returned to the postoperative anesthesia care unit with vital signs stable and vascular status intact. The patient handled the anesthesia as well as the procedure without significant complication. Postoperative orders as indicated in the patient's discharge chart.
== END 2023-11-18 12:07 ==
LOC: SDC 06:35 → MED SURG 14:13 → SDC 11-18 12:07
PROVIDERS: ATTEND Podiatrist Foot & Ankle Surgery
DX: S92.902A Unspecified fracture of left foot, initial encounter for closed fracture (principal); S93.324A Dislocation of tarsometatarsal joint of right foot, initial encounter; M21.962 Unspecified acquired deformity of left lower leg; M19.072 Primary osteoarthritis, left ankle and foot; J44.9 Chronic obstructive pulmonary disease, unspecified; I11.0 Hypertensive heart disease with heart failure; I50.9 Heart failure, unspecified; E78.5 Hyperlipidemia, unspecified; I10 Essential (primary) hypertension; J43.9 Emphysema, unspecified; E03.9 Hypothyroidism, unspecified; F41.0 Panic disorder [episodic paroxysmal anxiety]; F41.9 Anxiety disorder, unspecified; D64.9 Anemia, unspecified; G62.9 Polyneuropathy, unspecified; G47.33 Obstructive sleep apnea (adult) (pediatric); Z79.899 Other long term (current) drug therapy
CPT/HCPCS: 01474; 01480; 27687; 28715; 28730; 36410; 36415; 64447; 64450; 71045; 73630; 76000; 76937; 76942; 80053; 83880; 85014; 85018; 85027; 86850; 86900; 86901; 93005; 94640; 94760; C1713; C1762; C1776; Q3014; J0690; J1170; J2250; J2704; J3010; J7609; A9270-GY

== ENCOUNTER 2024-03-21 17:21 | Inpatient (IN) | payer MEDICARE, OTHER ==
[2024-03-21] MEDS ORDERED: DUONEB 0.5-3 MG/3 ml Neb IH ONE (17:38)
[2024-03-21] MEDS: DUONEB 0.5-3 MG/3 ml Neb IH ONE (17:43)
--- NOTE | 2024-03-21 17:58 | ERPHSYRPT ---
- History of Present Illness Time Seen by Provider: 03/21/24 17:58 Source: patient, EMS, old records Exam Limitations: clinical condition Patient Subjective Stated Complaint: EMS WAS CALLED TO PATIENTS RESIDENCE AFTER A CALL REPORTING CONFUSION AND SHORTNESS OF BREATH. PATIENT REPORTS SHE DID NOT CALL EMS BUT DOES ADMIT THAT SHE IS SHORT OF BREATH. Triage Nursing Assessment: PATIENT REPORTS TO ER VIA [facility] WITH REPORTS OF SHORTNESS OF BREATH. EMS STATE THAT PATIENTS O2 SATS WERE IN THE 70'S UPON ARRIVAL TO THE PATIENTS HOME ON HER BASELINE 4L O2 PER NC. PATIENT APPEARS SHORT OF BREATH AND INCREASED RESPIRATIONS- HEAD OF BED ELEVATED AND PATIENT PLACED ON 4L O2 VIA OXYMIZER WITH O2 SATS 90% AND RR 31. POSTERIOR LUNG SOUNDS COARSE AND RHONCI - RT NOTIFIED FOR EVALUATION. PATIENT REPORTS THAT SHE WAS BEEN COUGHING UP THICK YELLOW/GREEN SPUTUM BUT THIS NURSE HAS NOT WITNESSED AT THIS TIME. PATIENT UNSURE OF HOW LONG SHE HAS BEEN FEELING SHORT OF BREATH. PATIENT IS A CURRENT EVERY DAY SMOKER. PATIENT IS ORIENTED TO PERSON ONLY - NOT ABLE TO TELL NURSE WHERE SHE IS, WHAT YEAR OR MONTH IT IS OR WHO THE PRESIDENT IS. PATIENT REPORTS THAT SHE LIVES ALONE. Physician History: This is a 63-year-old white female patient who arrives to the emergency department by the [facility] attendant service. Patient states that she does not recall calling the paramedics but she has been short of breath in the last several days. Per the paramedics independent, additional history, they state that on arrival to the emergency department the patient did not have her oxygen on and her room air oxygen saturation level was in the 70%'s. Patient was confused. Patient was placed on 4 L of oxygen via nasal cannula which is her baseline oxygen supplementation and her oxygen saturation increased to 90% and her respiratory rate was 31 breaths/min. Patient states that she has been coughing up thick yellowish sputum. Patient continues to be a daily smoker of tobacco cigarettes. Patient has a history of depression, hypertension and hypothyroidism. Patient denies chest pain at this time. Timing/Duration: today Severity of Dyspnea-Max: moderate Severity of Dyspnea-Current: mild Possible Cause: occasional episodes, chronic episodes Modifying Factors: Improves With: activity Associated Symptoms: weakness, No chest pain/discomfort Allergies/Adverse Reactions: ceftriaxone Allergy (Severe, Verified 03/21/24 17:47) Anaphylactic Reaction gabapentin Allergy (Severe, Verified 03/21/24 17:47) pain cefazedone Allergy (Verified 03/21/24 17:47) hydralazine Allergy (Verified 03/21/24 17:47) Home Medications: Duloxetine HCl 30 mg [Cymbalta 30 MG Capsule] 120 mg PO DAILY 01/11/20 [History] ALPRAZolam 0.25 MG [xanAX 0.25 MG] 0.25 mg PO TID 10/28/23 [History] Carvedilol [Coreg ] 6.25 mg PO BID 10/30/23 [History] Levothyroxine Sodium [Euthyrox] 500 mg PO DAILY 01/26/24 [History] Aripiprazole 10 mg [Abilify 10 MG] 10 mg PO DAILY 03/21/24 [History] Azithromycin 250 mg [Zithromax 250 MG TABLET] See Rx Instructions .ROUTE .COMPLEX 03/21/24 [History] Losartan Potassium 1 tab PO DAILY 03/21/24 [History] Methylprednisolone 4 mg [Medrol 4 mg] See Rx Instructions .ROUTE .COMPLEX 03/21/24 [History] Potassium Chloride [Klor-Con 10] 4 tab PO DAILY 03/21/24 [History] Trazodone HCl 2 tab PO HS 03/21/24 [History] metOLazone [Metolazone] See Rx Instructions .ROUTE .COMPLEX 03/21/24 [History] Hx Tetanus, Diphtheria Vaccination/Date Given: Yes Hx Influenza Vaccination/Date Given: Yes Hx Pneumococcal Vaccination/Date Given: Yes Immunizations Up to Date: Yes Travel Risk - International Travel Have you traveled outside of the country in past 3 weeks: No - Emerging Infectious Disease Are you exhibiting symptoms associated with any current EIDs: No Symptoms: Cough: New Onset, Shortness of Breath Comment: - - Review of Systems Constitutional: Weakness Eyes: No Symptoms Ears, Nose, & Throat: No Symptoms Respiratory: Dyspnea Cardiac: No Symptoms Abdominal/Gastrointestinal: No Symptoms Genitourinary Symptoms: No Symptoms Musculoskeletal: No Symptoms Skin: No Symptoms Neurological: No Symptoms Psychological: No Symptoms Endocrine: No Symptoms Hematologic/Lymphatic: No Symptoms Immunological/Allergic: No Symptoms All Other Systems: Reviewed and Negative - Past Medical History Pertinent Past Medical History: Yes Neurological History: Peripheral Neuropathy ENT History: Cataracts Cardiac History: Congestive Heart Failure, High Cholesterol, Hypertension Respiratory History: CHF, COPD, Emphysema, Sleep Apnea, Other Endocrine Medical History: Hyperthyroidism, Hypoglycemia Musculoskeletal History: Arthritis GI Medical History: Other History: No Pertinent History Psycho-Social History: Anxiety, Depression Female Reproductive Disorders: No Pertinent History Other Medical History: trigeminal neuralgia, sepsis, hypokalemia, COVID, hypoxemia, b12 deficiency, wounds, hypercarbia, right ankle fracture, left foot fracture, renal cyst, hyponatremia - Past Surgical History Past Surgical History: Yes Neuro Surgical History: No Pertinent History Cardiac: No Pertinent History Respiratory: No Pertinent History Gastrointestinal: Appendectomy Genitourinary: No Pertinent History Musculoskeletal: Orthopedic Surgery Female Surgical History: No Pertinent History Other Surgical History: elbow surgery, skin cancer removed, right foot surgery - 12/27/21 - Social History Smoking Status: Current every day smoker How long have you smoked: 30 years Exposure to second hand smoke: No Drug Use: none Patient Lives Alone: Yes - Social Determinants of Health Will the patient participate in the screening: Declined to provide - Nursing Vital Signs Nursing Vital Signs: Initial Vital Signs Pulse Rate 93 H 03/21/24 17:25 Respiratory Rate 28 H 03/21/24 17:25 Blood Pressure 162/84 03/21/24 17:25 Pain Scale Pain Intensity 0 - Physical Exam General Appearance: no apparent distress, alert, obese Eye Exam: PERRL/EOMI, eyes nml inspection Ears, Nose, Throat Exam: hearing grossly normal, normal ENT inspection, normal pharynx Neck Exam: normal inspection, non-tender, supple, full range of motion Respiratory Exam: airway intact, rhonchi, wheezing (Bilaterally), No chest tenderness, No respiratory distress Cardiovascular/Chest Exam: normal heart sounds, regular rate/rhythm Abdominal/Gastrointestinal Exam: soft, normal bowel sounds, No tenderness Rectal Exam: not done Extremity Exam: non-tender, normal range of motion, normal inspection, pelvis stable, pedal edema (Mild feet and ankles bilaterally) Neurologic Exam: alert, cooperative, choke setter II-XII nml as tested, sensation nml Skin Exam: normal color, warm, dry Lymphatic Exam: No adenopathy SpO2 Interpretation: borderline oxygenation SpO2: 91 O2 Delivery: Nasal Cannula (4 L oxygen which is her baseline oxygen supplementation) - Course Nursing assessment & vital signs reviewed: Yes Ordered Tests: Active Orders 24 hr Category Date Time Status EKG-ER Only STAT Care 03/21/24 21:50 Active CHEST 1 VIEW (PORTABLE) Stat Exams 03/21/24 17:59 Taken HEAD WITHOUT CONTRAST [CT] Stat Exams 03/21/24 19:15 Taken ABG [ARTERIAL BLOOD GASES] Stat Lab 03/21/24 18:39 Completed ARTERIAL BLOOD GASES Stat Lab 03/21/24 17:58 Ordered BLOOD CULTURE Stat Lab 03/21/24 18:22 Received CBC W DIFF Stat Lab 03/21/24 18:16 Completed CMP Stat Lab 03/21/24 18:16 Completed CULTURE,URINE Stat Lab 03/21/24 20:27 Received MAGNESIUM Stat Lab 03/21/24 18:16 Completed NT PRO BNPII Stat Lab 03/21/24 18:16 Completed TROPONIN Q4H Lab 03/21/24 18:16 Completed TROPONIN Q4H Lab 03/21/24 21:45 Completed TROPONIN Q4H Lab 03/22/24 02:00 Ordered UA W/RFX UR CULTURE Stat Lab 03/21/24 20:27 Completed Respiratory Therapy Assessment DAILY RT 03/21/24 17:42 Completed Medication Summary Discontinued Medications Generic Name Dose Route Start Last Admin Trade Name Freq PRN Reason Stop Dose Admin Albuterol/Ipratropium Confirm 03/21/24 17:38 Ipratropium/Albuterol Sulfate 3 Ml Ampul.Neb Administered 03/21/24 17:39 Dose 3 ml IH .STK-MED ONE Albuterol/Ipratropium 3 ml 03/21/24 17:42 03/21/24 17:43 Ipratropium/Albuterol Sulfate 3 Ml Ampul.Neb IH 03/21/24 17:43 3 ml STAT ONE Administration Furosemide 40 mg 03/21/24 21:46 Furosemide 40 Mg/4 Ml Vial IV 03/21/24 21:47 STAT ONE Levofloxacin/Dextrose 500 mg in 100 mls @ 100 mls/hr 03/21/24 21:46 03/21/24 22:01 Levofloxacin 500mg/100ml D5w IV 03/21/24 22:45 100 mls/hr STAT STA 100 mls/hr Administration Levofloxacin/Dextrose Confirm 03/21/24 22:00 Levofloxacin 500mg/100ml D5w Administered 03/21/24 22:01 Dose 500 mg in 100 mls @ ud IV .STK-MED ONE Lab/Rad Data: Laboratory Result Diagrams 03/21/24 18:16 03/21/24 18:16 Laboratory Results 03/21/24 03/21/24 03/21/24 Range/Units 21:45 20:27 19:30 WBC (3.98-10.04) x10^3/uL RBC (3.93-5.22) x10^6/uL Hgb (11.2-15.7) g/dL Hct (34.1-44.9) % MCV (79.4-94.8) fL MCH (25.6-32.2) pg MCHC (32.2-35.5) g/dL RDW (11.7-14.4) % Plt Count (182-369) x10^3/uL MPV (9.4-12.3) fL Gran % (34.0-71.1) % Immature Gran % (Auto) (0.001-0.429) % Nucleat RBC Rel Count (0.00-0.2) % Eos # (Auto) (0.04-0.36) x10^3/uL Immature Gran # (Auto) (0.001-0.031) x10^3u/L Absolute Lymphs (auto) (1.18-3.74) x10^3/uL Absolute Monos (auto) (0.24-0.86) x10^3/uL Absolute Nucleated RBC (0.00-0.012) x10^3u/L Lymphocytes % (19.3-51.7) % Monocytes % (4.7-12.5) % Eosinophils % (0.7-5.8) % Basophils % (0.1-1.2) % Absolute Granulocytes (1.56-6.13) x10^3/uL Basophils # (0.01-0.08) x10^3/uL Puncture Site pCO2 (35-45) mmHg pO2 (75-100) mmHg Base Excess (-2.0-2.0) O2 Saturation (94-100) g/dF ABG pH (7.35-7.45) ABG HCO3 (22-28) ABG O2 Sat (Measured) (95-100) % ABG O2 Content % vol Shabbir Test A-a Gradient a/A Ratio Hemoglobin Carboxyhemoglobin (0.0-6.9) % THgb Methemoglobin (1.4-1.5) % Temperature C POC O2 Flow Rate % Sodium (135-145) mmol/L Potassium (3.5-5.1) mmol/L Chloride (98-107) mmol/L Carbon Dioxide (22-30) mmol/L Anion Gap (5-15) MEQ/L BUN (7-17) mg/dL Creatinine (0.52-1.04) mg/dL Estimated GFR ML/MIN Glucose (74-106) mg/dL Calcium (8.4-10.2) mg/dL Magnesium (1.6-2.3) mg/dL Total Bilirubin (0.2-1.3) mg/dL AST (14-36) U/L ALT (0-35) U/L Alkaline Phosphatase (38-126) U/L Ammonia < 9 L (9-30) umol/L Troponin I 0.024 (0.000-0.033) ng/mL NT-Pro-B Natriuret Pep (<300) pg/mL Serum Total Protein (6.3-8.2) g/dL Albumin (3.5-5.0) g/dL Urine Color Yellow (Yellow) Urine Appearance Clear (Clear) Urine pH 5.5 (4.6-8.0) Ur Specific [place] >=1.030 A (1.005-1.030) Urine Protein 300 A (Negative) Urine Glucose (UA) >=1000 A (Negative) mg/dL Urine Ketones Trace A (Negative) Urine Blood Negative (Negative) Urine Nitrite Negative (Negative) Urine Bilirubin Negative (Negative) Urine Urobilinogen 0.2 (0.2) mg/dL Ur Leukocyte Esterase Negative (Negative) U Hyaline Cast (Auto) 3-5 A (0-2) /LPF Urine Microscopic RBC 0-2 (0-5) /HPF Urine Microscopic WBC 21-50 A (0-5) /HPF Ur Epithelial Cells Few (None Seen) /HPF Urine Bacteria None Seen (None Seen) /HPF Urine Culture Reflexed YES (NO) Influenza Type A Ag (NEGATIVE) Influenza Type B Ag (NEGATIVE) RSV (PCR) (NEGATIVE) SARS-CoV-2 (PCR) (NEGATIVE) Slides for Path Review 03/21/24 03/21/24 03/21/24 Range/Units 18:39 18:25 18:16 WBC (3.98-10.04) x10^3/uL RBC (3.93-5.22) x10^6/uL Hgb (11.2-15.7) g/dL Hct (34.1-44.9) % MCV (79.4-94.8) fL MCH (25.6-32.2) pg MCHC (32.2-35.5) g/dL RDW (11.7-14.4) % Plt Count (182-369) x10^3/uL MPV (9.4-12.3) fL Gran % (34.0-71.1) % Immature Gran % (Auto) (0.001-0.429) % Nucleat RBC Rel Count (0.00-0.2) % Eos # (Auto) (0.04-0.36) x10^3/uL Immature Gran # (Auto) (0.001-0.031) x10^3u/L Absolute Lymphs (auto) (1.18-3.74) x10^3/uL Absolute Monos (auto) (0.24-0.86) x10^3/uL Absolute Nucleated RBC (0.00-0.012) x10^3u/L Lymphocytes % (19.3-51.7) % Monocytes % (4.7-12.5) % Eosinophils % (0.7-5.8) % Basophils % (0.1-1.2) % Absolute Granulocytes (1.56-6.13) x10^3/uL Basophils # (0.01-0.08) x10^3/uL Puncture Site RRA pCO2 60 H* (35-45) mmHg pO2 64 L (75-100) mmHg Base Excess 12.1 H (-2.0-2.0) O2 Saturation 88.7 L (94-100) g/dF ABG pH 7.42 (7.35-7.45) ABG HCO3 38.9 H* (22-28) ABG O2 Sat (Measured) 93.2 L (95-100) % ABG O2 Content 4 % vol Shabbir Test YES A-a Gradient 118 a/A Ratio 0.35 Hemoglobin 12.0 Carboxyhemoglobin 4.5 (0.0-6.9) % THgb Methemoglobin 0.3 L (1.4-1.5) % Temperature 37.0 C POC O2 Flow Rate 36 % Sodium (135-145) mmol/L Potassium 5.0 (3.5-5.1) mmol/L Chloride (98-107) mmol/L Carbon Dioxide (22-30) mmol/L Anion Gap (5-15) MEQ/L BUN (7-17) mg/dL Creatinine (0.52-1.04) mg/dL Estimated GFR ML/MIN Glucose (74-106) mg/dL Calcium (8.4-10.2) mg/dL Magnesium (1.6-2.3) mg/dL Total Bilirubin (0.2-1.3) mg/dL AST (14-36) U/L ALT (0-35) U/L Alkaline Phosphatase (38-126) U/L Ammonia (9-30) umol/L Troponin I 0.033 (0.000-0.033) ng/mL NT-Pro-B Natriuret Pep 3600 (<300) pg/mL Serum Total Protein (6.3-8.2) g/dL Albumin (3.5-5.0) g/dL Urine Color (Yellow) Urine Appearance (Clear) Urine pH (4.6-8.0) Ur Specific [place] (1.005-1.030) Urine Protein (Negative) Urine Glucose (UA) (Negative) mg/dL Urine Ketones (Negative) Urine Blood (Negative) Urine Nitrite (Negative) Urine Bilirubin (Negative) Urine Urobilinogen (0.2) mg/dL Ur Leukocyte Esterase (Negative) U Hyaline Cast (Auto) (0-2) /LPF Urine Microscopic RBC (0-5) /HPF Urine Microscopic WBC (0-5) /HPF Ur Epithelial Cells (None Seen) /HPF Urine Bacteria (None Seen) /HPF Urine Culture Reflexed (NO) Influenza Type A Ag NEGATIVE (NEGATIVE) Influenza Type B Ag NEGATIVE (NEGATIVE) RSV (PCR) NEGATIVE (NEGATIVE) SARS-CoV-2 (PCR) NEGATIVE (NEGATIVE) Slides for Path Review 03/21/24 03/21/24 Range/Units 18:16 18:16 WBC 15.7 H (3.98-10.04) x10^3/uL RBC 4.73 (3.93-5.22) x10^6/uL Hgb 12.0 (11.2-15.7) g/dL Hct 40.1 (34.1-44.9) % MCV 84.8 (79.4-94.8) fL MCH 25.4 L (25.6-32.2) pg MCHC 29.9 L (32.2-35.5) g/dL RDW 22.8 H (11.7-14.4) % Plt Count 324 (182-369) x10^3/uL MPV 9.8 (9.4-12.3) fL Gran % 76.2 H (34.0-71.1) % Immature Gran % (Auto) 1.5 H (0.001-0.429) % Nucleat RBC Rel Count 0.0 (0.00-0.2) % Eos # (Auto) 0.25 (0.04-0.36) x10^3/uL Immature Gran # (Auto) 0.24 H (0.001-0.031) x10^3u/L Absolute Lymphs (auto) 2.07 (1.18-3.74) x10^3/uL Absolute Monos (auto) 1.04 H (0.24-0.86) x10^3/uL Absolute Nucleated RBC 0.00 (0.00-0.012) x10^3u/L Lymphocytes % 13.2 L (19.3-51.7) % Monocytes % 6.6 (4.7-12.5) % Eosinophils % 1.6 (0.7-5.8) % Basophils % 0.9 (0.1-1.2) % Absolute Granulocytes 11.93 H (1.56-6.13) x10^3/uL Basophils # 0.14 H (0.01-0.08) x10^3/uL Puncture Site pCO2 (35-45) mmHg pO2 (75-100) mmHg Base Excess (-2.0-2.0) O2 Saturation (94-100) g/dF ABG pH (7.35-7.45) ABG HCO3 (22-28) ABG O2 Sat (Measured) (95-100) % ABG O2 Content % vol Shabbir Test A-a Gradient a/A Ratio Hemoglobin Carboxyhemoglobin (0.0-6.9) % THgb Methemoglobin (1.4-1.5) % Temperature C POC O2 Flow Rate % Sodium 138 (135-145) mmol/L Potassium 5.2 H (3.5-5.1) mmol/L Chloride 93 L (98-107) mmol/L Carbon Dioxide 34 H (22-30) mmol/L Anion Gap 15.6 H (5-15) MEQ/L BUN 17 (7-17) mg/dL Creatinine 0.65 (0.52-1.04) mg/dL Estimated GFR 99.5 ML/MIN Glucose 363 H (74-106) mg/dL Calcium 9.6 (8.4-10.2) mg/dL Magnesium 2.4 H (1.6-2.3) mg/dL Total Bilirubin 0.80 (0.2-1.3) mg/dL AST 40 H (14-36) U/L ALT 32 (0-35) U/L Alkaline Phosphatase 151 H (38-126) U/L Ammonia (9-30) umol/L Troponin I (0.000-0.033) ng/mL NT-Pro-B Natriuret Pep (<300) pg/mL Serum Total Protein 7.9 (6.3-8.2) g/dL Albumin 4.5 (3.5-5.0) g/dL Urine Color (Yellow) Urine Appearance (Clear) Urine pH (4.6-8.0) Ur Specific [place] (1.005-1.030) Urine Protein (Negative) Urine Glucose (UA) (Negative) mg/dL Urine Ketones (Negative) Urine Blood (Negative) Urine Nitrite (Negative) Urine Bilirubin (Negative) Urine Urobilinogen (0.2) mg/dL Ur Leukocyte Esterase (Negative) U Hyaline Cast (Auto) (0-2) /LPF Urine Microscopic RBC (0-5) /HPF Urine Microscopic WBC (0-5) /HPF Ur Epithelial Cells (None Seen) /HPF Urine Bacteria (None Seen) /HPF Urine Culture Reflexed (NO) Influenza Type A Ag (NEGATIVE) Influenza Type B Ag (NEGATIVE) RSV (PCR) (NEGATIVE) SARS-CoV-2 (PCR) (NEGATIVE) Slides for Path Review YES - Progress Progress: improved, re-examined Air Movement: fair Progress Note: 03/21/24 19:20 My medical decision making and the assignment of at least moderate complexity is based on review of the patient's past medical history, review of the patient's medication list, reviewed patient drug allergy list, history present illness and physical findings on examination. The workup in this patient includes placement of intravenous line, CBC, CMP, chest x-ray, BNP, twelve-lead EKG, troponin level, viral swabs. We will also order an ammonia level and CT scan of her head. Differential diagnosis include but is not limited to upper respiratory infection, pneumonia, COPD exacerbation, CHF exacerbation, arrhythmia, viral ill ness, myocardial infarction Blood Culture(s) Obtained: Yes - Departure Departure Disposition: In-patient Admission Clinical Impression: Bilateral pulmonary infiltrates on chest x-ray, CHF (congestive heart failure), Hypoxia Condition: Fair Critical Care Time: Yes Critical Care Time(excluding separately billable procedures): Critical 30-74 mins (50) Referrals: NADIA SHEFFIELD FNP [Primary Care Provider] - Follow up/PCP as directed Instructions: Heart Failure
[2024-03-21 18:34] LABS: Absolute Neutrophil Ct (ANC) 11.93 x10^3/uL (1.56-6.13); BASOPHIL % 0.9 % (0.1-1.2); Basophil (Absolute #) 0.14 x10^3/uL (0.01-0.08); Eosinophil % 1.6 % (0.7-5.8); Eosinophil (Absolute #) 0.25 x10^3/uL (0.04-0.36); Hematocrit 40.1 % (34.1-44.9); IMMATURE GRAN # 0.24 x10^3u/L (0.001-0.031); IMMATURE GRAN % 1.5 % (0.001-0.429); Lymphocyte (Absolute #) 2.07 x10^3/uL (1.18-3.74); Lymphocytes % 13.2 % (19.3-51.7); Mean Cell Volume 84.8 fL (79.4-94.8); Mean Corpuscular Hemoglobin 25.4 pg (25.6-32.2); Mean Corpuscular Hgb Concent. 29.9 g/dL (32.2-35.5); Mean Platelet Volume 9.8 fL (9.4-12.3); Monocyte (Absolute #) 1.04 x10^3/uL (0.24-0.86); Monocytes % 6.6 % (4.7-12.5); Neutrophil % 76.2 % (34.0-71.1); Platelet Count 324 x10^3/uL (182-369); Red Blood Count 4.73 x10^6/uL (3.93-5.22); Red Cell Distribution Width 22.8 % (11.7-14.4); White Blood Count 15.7 x10^3/uL (3.98-10.04)
[2024-03-21 18:40] LABS: A-aADO2 118; ARTERIAL BLD GAS O2 SATURATION 93.2 % (95-100); ARTERIAL BLOOD GAS BASE EXCESS 12.1 (-2.0-2.0); ARTERIAL BLOOD GAS FIO2 36 %; ARTERIAL BLOOD GAS PO2 64 mmHg (75-100); ARTERIAL BLOOD GAS pH 7.42 (7.35-7.45); CARBOXYHEMOGLOBIN 4.5 % THgb (0.0-6.9); HCO3- 38.9 (22-28); HGB O2 SAT 88.7 g/dF (94-100); Methhemoglobin 0.3 % (1.4-1.5); paO2 pAO1 0.35
[2024-03-21 18:41] LABS: ABG SITE RRA; ALLEN TEST OK? YES; ARTERIAL BLOOD GAS PCO2 60 mmHg (35-45); O2 CONTENT 4 % vol
[2024-03-21 18:50] LABS: ALBUMIN 4.5 g/dL (3.5-5.0); ANION GAP 15.6 MEQ/L (5-15); BILIRUBIN,TOTAL 0.8 mg/dL (0.2-1.3); Calcium 9.6 mg/dL (8.4-10.2); Creatinine 1 0.65 mg/dL (0.52-1.04); EST GLOMERULAR FILTRATION RATE 99.5 ML/MIN; MAGNESIUM 2.4 mg/dL (1.6-2.3); Total Protein 7.9 g/dL (6.3-8.2)
[2024-03-21 18:51] LABS: Potassium 5.2 mmol/L (3.5-5.1)
[2024-03-21 19:02] LABS: TROPONIN 0.033 ng/mL (0.000-0.033)
[2024-03-21 19:12] LABS: INFLUENZA A NEGATIVE (NEGATIVE); INFLUENZA B NEGATIVE (NEGATIVE); RESPIRATORY SYNCTIAL VIRUS NEGATIVE (NEGATIVE); SARS-CoV-2 Xpert Express NEGATIVE (NEGATIVE)
[2024-03-21 19:33] LABS: Slide Review 1 YES
[2024-03-21 20:36] LABS: Appearance Clear (Clear); Bacteria None Seen /HPF (None Seen); Bilirubin Negative (Negative); Blood Negative (Negative); Epithelial Cells Few /HPF (None Seen); Glucose, Urine >=1000 mg/dL (Negative); Ketones Trace (Negative); Leukocyte Esterase Negative (Negative); Nitrite Negative (Negative); Ph 5.5 (4.6-8.0); Protein,Urine Dip 300 (Negative); RBC 0-2 /HPF (0-5); Specific Gravity >=1.030 (1.005-1.030); Urobilinogen 0.2 mg/dL (0.2); WBC 21-50 /HPF (0-5)
[2024-03-21] MEDS ORDERED: Levofloxacin 500MG/100ML D5W 500 MG/100 ML BAG IV ONE (22:00)
[2024-03-21] MEDS: Levofloxacin 500MG/100ML D5W 500 MG/100 ML BAG IV STA (22:01)
[2024-03-21] MEDS ORDERED: Lasix 40 MG/4 ML ONE (23:19)
[2024-03-21] MEDS: Lasix 40 MG/4 ML IV ONE (23:27)
[2024-03-21] MEDS ORDERED: Zofran 4 MG/2 ML VIAL IV PRN (23:32)
[2024-03-22] MEDS ORDERED: PROVENTIL 2.5 MG/3 ML NEB IH PRN (01:42)
[2024-03-22] MEDS ORDERED: DUONEB 0.5-3 MG/3 ml Neb IH PRN (01:46)
[2024-03-22] MEDS ORDERED: Lasix 40 MG/4 ML IV SCH (02:00)
--- NOTE | 2024-03-22 04:35 | PCM.HP ---
History of Present Illness - Chief Complaint Chief Complaint: confusion Date: 03/22/24 History of Present Illness: Note, history is limited by patient's mental status, stating only that she is "doing fine". She is intermittently able to answer some questions, but not re liably. 63-year-old woman with history of CHF, hypertension, hypothyroidism, COPD on 4 L oxygen, type 2 diabetes, and anxiety with panic disorder, who presents with confusion. Patient denies calling ambulance, but EMS reported that they were called by patient to the home. Upon EMS arrival, patient's SpO2 was in the 70s, but she was not wearing her regular oxygen (she wears 4 L at home). She was n oted be very confused. Per patient, she is "doing fine", but did eventually say she was having some cough and dyspnea without any abdominal pain. However, she did not answer questions about dysuria or edema. On arrival to the ER, she remained on 4 L oxygen. She was noted to have chronic compensated hypercarbia on ABG, as well as elevations in her BNP and and her blood glucose levels, as well as a leukocytosis. In the ED, she was given Lasix 40 mg, Levaquin, and DuoNebs. - Review of Systems All Other Systems: Unable due to condition Medications & Allergies Home Medications: Home Medication List ALPRAZolam 0.25 MG [xanAX 0.25 MG] 0.25 mg PO TID 10/28/23 [History Confirmed 03/21/24] Carvedilol [Coreg ] 6.25 mg PO BID 10/30/23 [History Confirmed 03/21/24] Albuterol 2.5 mg/3 ml Neb [Proventil 2.5 mg/3 ml Neb] 1 neb IH Q4HPRN PRN 03/21/24 [History Confirmed 03/21/24] Aripiprazole 10 mg [Abilify 10 MG] 10 mg PO DAILY 03/21/24 [History Confirmed 03/21/24] Carbamazepine 200 mg [Tegretol 200 MG] 200 mg PO BID 03/21/24 [History Confirmed 03/21/24] Duloxetine HCl [Cymbalta] 120 mg PO DAILY 03/21/24 [History Confirmed 03/21/24] Levothyroxine Sodium [Synthroid] 125 mcg PO DAILY 03/21/24 [History Confirmed 03/21/24] Losartan Potassium 25 mg PO DAILY 03/21/24 [History Confirmed 03/21/24] Potassium Chloride 40 meq PO QID 03/21/24 [History Confirmed 03/21/24] Prednisone 20 mg [Deltasone 20 mg] 20 mg PO DAILY 03/21/24 [History Confirmed 03/21/24] Pregabalin [Lyrica] 300 mg PO BID 03/21/24 [History Confirmed 03/21/24] Tiotropium [place] Inhaler [Spiriva 18 Mcg/Cap Inhaler] 1 puff IH DAILY 03/21/24 [History Confirmed 03/21/24] Allergies/Adverse Reactions: Allergies Allergy/AdvReac Type Severity Reaction Status Date / Time ceftriaxone Allergy Severe Anaphylactic Verified 03/22/24 00:47 Reaction gabapentin Allergy Severe pain Verified 03/22/24 00:47 cefazedone Allergy Verified 03/22/24 00:47 hydralazine Allergy Verified 03/22/24 00:47 - Past Medical History Past Medical History: Yes Neurological History: Peripheral Neuropathy ENT History: Cataracts Cardiac History: Congestive Heart Failure, High Cholesterol, Hypertension Respiratory History: CHF, COPD, Emphysema, Sleep Apnea, Other Endocrine Medical History: Hypothyroidism Musculoskelatal History: Arthritis GI Medical History: Other History: No Pertinent History Pyscho-Social History: Anxiety, Depression Reproductive Disorders: No Pertinent History Comment: trigeminal neuralgia, sepsis, hypokalemia, COVID, hypoxemia, b12 deficiency, wounds, hypercarbia, right ankle fracture, left foot fracture, renal cyst, hyponatremia - Past Surgical History Past Surgical History: Yes Neuro Surgical History: No Pertinent History Cardiac History: No Pertinent History Respiratory Surgery: No Pertinent History GI Surgical History: Appendectomy Genitourinary Surgical Hx: No Pertinent History Musculskeletal Surgical Hx: Orthopedic Surgery Female Surgical History: No Pertinent History Other Surgical History: elbow surgery, skin cancer removed, right foot surgery - 12/27/21 Significant Family History: other (Unable to obtain family history due to patient's mental status.) - Social History Smoking Status: Never smoker How long have you smoked: 30 years Exposure to second hand smoke: No Alcohol: None Drug Use: none - Social Determinants of Health Will the patient participate in the screening: Yes Do you worry about a steady place to live?: No Do you have any problems with any of the following?: No known problems In the past 12 months,have you had to go without utilities?: No Have you or anyone in your house had to go without enough: No Transportation Issues: No Has anyone in your support network made you feel unsafe?: No Does the patient want assistance with any of the above?: No Comment: Currently utilizing [facility] - Physical Exam Vital Signs: Vital Signs - 24 hr Temp Pulse Resp BP BP Pulse Ox 03/22/24 04:00 97.6 F 90 25 H 146/74 96 03/22/24 00:01 97 H 22 94 L 03/21/24 23:56 97.0 F 92 H 24 159/91 94 L 03/21/24 23:01 91 L 03/21/24 23:00 93 H 19 152/103 96 03/21/24 22:30 92 H 23 140/84 96 03/21/24 22:00 88 19 137/83 97 03/21/24 21:30 82 16 129/92 97 03/21/24 21:00 86 20 132/84 96 03/21/24 20:30 86 16 154/77 95 03/21/24 20:00 91 H 20 133/74 96 03/21/24 19:00 114/68 96 03/21/24 18:30 90 21 128/78 94 L 03/21/24 18:00 90 24 150/94 94 L 03/21/24 17:43 88 18 91 L 03/21/24 17:30 90 23 147/86 91 L 03/21/24 17:26 95.7 F 93 H 27 H 162/84 90 L 03/21/24 17:25 93 H 28 H 162/84 Physical Exam GEN: Sitting up in bed in no acute distress. HENT: Normocephalic, atraumatic. Somewhat dry mucous membranes. EYES: Normal inspection, anicteric sclera, extraocular movements intact. NECK: Supple, full range of motion CV: Regular rate and rhythm, no murmurs, no gallops. No JVD or edema. PULM: Clear to auscultation bilaterally, no work of breathing. On 4 L oxygen by nasal cannula ABD: Nondistended, nontender. MSK: No joint effusions, full range of motion SKIN: No rashes, normal color. NEURO: Limited exam due to patient mental status. Face symmetric, appears to be moving all extremities well. PSYCH: Awake, alert, but oriented only to person, only intermittently answering questions. Results - Labs Lab/Micro Results: Lab Results-Last 24 Hours 03/21/24 03/21/24 03/21/24 Range/Units 18:16 18:16 18:16 WBC 15.7 H (3.98-10.04) x10^3/uL RBC 4.73 (3.93-5.22) x10^6/uL Hgb 12.0 (11.2-15.7) g/dL Hct 40.1 (34.1-44.9) % MCV 84.8 (79.4-94.8) fL MCH 25.4 L (25.6-32.2) pg MCHC 29.9 L (32.2-35.5) g/dL RDW 22.8 H (11.7-14.4) % Plt Count 324 (182-369) x10^3/uL MPV 9.8 (9.4-12.3) fL Gran % 76.2 H (34.0-71.1) % Immature Gran % (Auto) 1.5 H (0.001-0.429) % Nucleat RBC Rel Count 0.0 (0.00-0.2) % Eos # (Auto) 0.25 (0.04-0.36) x10^3/uL Immature Gran # (Auto) 0.24 H (0.001-0.031) x10^3u/L Absolute Lymphs (auto) 2.07 (1.18-3.74) x10^3/uL Absolute Monos (auto) 1.04 H (0.24-0.86) x10^3/uL Absolute Nucleated RBC 0.00 (0.00-0.012) x10^3u/L Lymphocytes % 13.2 L (19.3-51.7) % Monocytes % 6.6 (4.7-12.5) % Eosinophils % 1.6 (0.7-5.8) % Basophils % 0.9 (0.1-1.2) % Absolute Granulocytes 11.93 H (1.56-6.13) x10^3/uL Basophils # 0.14 H (0.01-0.08) x10^3/uL Puncture Site pCO2 (35-45) mmHg pO2 (75-100) mmHg Base Excess (-2.0-2.0) O2 Saturation (94-100) g/dF ABG pH (7.35-7.45) ABG HCO3 (22-28) ABG O2 Sat (Measured) (95-100) % ABG O2 Content % vol Shabbir Test A-a Gradient a/A Ratio Hemoglobin Carboxyhemoglobin (0.0-6.9) % THgb Methemoglobin (1.4-1.5) % Temperature C POC O2 Flow Rate % Sodium 138 (135-145) mmol/L Potassium 5.2 H (3.5-5.1) mmol/L Chloride 93 L (98-107) mmol/L Carbon Dioxide 34 H (22-30) mmol/L Anion Gap 15.6 H (5-15) MEQ/L BUN 17 (7-17) mg/dL Creatinine 0.65 (0.52-1.04) mg/dL Estimated GFR 99.5 ML/MIN Glucose 363 H (74-106) mg/dL Calcium 9.6 (8.4-10.2) mg/dL Magnesium 2.4 H (1.6-2.3) mg/dL Total Bilirubin 0.80 (0.2-1.3) mg/dL AST 40 H (14-36) U/L ALT 32 (0-35) U/L Alkaline Phosphatase 151 H (38-126) U/L Ammonia (9-30) umol/L Troponin I 0.033 (0.000-0.033) ng/mL NT-Pro-B Natriuret Pep 3600 (<300) pg/mL Serum Total Protein 7.9 (6.3-8.2) g/dL Albumin 4.5 (3.5-5.0) g/dL Urine Color (Yellow) Urine Appearance (Clear) Urine pH (4.6-8.0) Ur Specific [place] (1.005-1.030) Urine Protein (Negative) Urine Glucose (UA) (Negative) mg/dL Urine Ketones (Negative) Urine Blood (Negative) Urine Nitrite (Negative) Urine Bilirubin (Negative) Urine Urobilinogen (0.2) mg/dL Ur Leukocyte Esterase (Negative) U Hyaline Cast (Auto) (0-2) /LPF Urine Microscopic RBC (0-5) /HPF Urine Microscopic WBC (0-5) /HPF Ur Epithelial Cells (None Seen) /HPF Urine Bacteria (None Seen) /HPF Urine Culture Reflexed (NO) Influenza Type A Ag (NEGATIVE) Influenza Type B Ag (NEGATIVE) RSV (PCR) (NEGATIVE) SARS-CoV-2 (PCR) (NEGATIVE) Slides for Path Review YES 03/21/24 03/21/24 03/21/24 Range/Units 18:25 18:39 19:30 WBC (3.98-10.04) x10^3/uL RBC (3.93-5.22) x10^6/uL Hgb (11.2-15.7) g/dL Hct (34.1-44.9) % MCV (79.4-94.8) fL MCH (25.6-32.2) pg MCHC (32.2-35.5) g/dL RDW (11.7-14.4) % Plt Count (182-369) x10^3/uL MPV (9.4-12.3) fL Gran % (34.0-71.1) % Immature Gran % (Auto) (0.001-0.429) % Nucleat RBC Rel Count (0.00-0.2) % Eos # (Auto) (0.04-0.36) x10^3/uL Immature Gran # (Auto) (0.001-0.031) x10^3u/L Absolute Lymphs (auto) (1.18-3.74) x10^3/uL Absolute Monos (auto) (0.24-0.86) x10^3/uL Absolute Nucleated RBC (0.00-0.012) x10^3u/L Lymphocytes % (19.3-51.7) % Monocytes % (4.7-12.5) % Eosinophils % (0.7-5.8) % Basophils % (0.1-1.2) % Absolute Granulocytes (1.56-6.13) x10^3/uL Basophils # (0.01-0.08) x10^3/uL Puncture Site RRA pCO2 60 H* (35-45) mmHg pO2 64 L (75-100) mmHg Base Excess 12.1 H (-2.0-2.0) O2 Saturation 88.7 L (94-100) g/dF ABG pH 7.42 (7.35-7.45) ABG HCO3 38.9 H* (22-28) ABG O2 Sat (Measured) 93.2 L (95-100) % ABG O2 Content 4 % vol Shabbir Test YES A-a Gradient 118 a/A Ratio 0.35 Hemoglobin 12.0 Carboxyhemoglobin 4.5 (0.0-6.9) % THgb Methemoglobin 0.3 L (1.4-1.5) % Temperature 37.0 C POC O2 Flow Rate 36 % Sodium (135-145) mmol/L Potassium 5.0 (3.5-5.1) mmol/L Chloride (98-107) mmol/L Carbon Dioxide (22-30) mmol/L Anion Gap (5-15) MEQ/L BUN (7-17) mg/dL Creatinine (0.52-1.04) mg/dL Estimated GFR ML/MIN Glucose (74-106) mg/dL Calcium (8.4-10.2) mg/dL Magnesium (1.6-2.3) mg/dL Total Bilirubin (0.2-1.3) mg/dL AST (14-36) U/L ALT (0-35) U/L Alkaline Phosphatase (38-126) U/L Ammonia < 9 L (9-30) umol/L Troponin I (0.000-0.033) ng/mL NT-Pro-B Natriuret Pep (<300) pg/mL Serum Total Protein (6.3-8.2) g/dL Albumin (3.5-5.0) g/dL Urine Color (Yellow) Urine Appearance (Clear) Urine pH (4.6-8.0) Ur Specific [place] (1.005-1.030) Urine Protein (Negative) Urine Glucose (UA) (Negative) mg/dL Urine Ketones (Negative) Urine Blood (Negative) Urine Nitrite (Negative) Urine Bilirubin (Negative) Urine Urobilinogen (0.2) mg/dL Ur Leukocyte Esterase (Negative) U Hyaline Cast (Auto) (0-2) /LPF Urine Microscopic RBC (0-5) /HPF Urine Microscopic WBC (0-5) /HPF Ur Epithelial Cells (None Seen) /HPF Urine Bacteria (None Seen) /HPF Urine Culture Reflexed (NO) Influenza Type A Ag NEGATIVE (NEGATIVE) Influenza Type B Ag NEGATIVE (NEGATIVE) RSV (PCR) NEGATIVE (NEGATIVE) SARS-CoV-2 (PCR) NEGATIVE (NEGATIVE) Slides for Path Review 03/21/24 03/21/24 Range/Units 20:27 21:45 WBC (3.98-10.04) x10^3/uL RBC (3.93-5.22) x10^6/uL Hgb (11.2-15.7) g/dL Hct (34.1-44.9) % MCV (79.4-94.8) fL MCH (25.6-32.2) pg MCHC (32.2-35.5) g/dL RDW (11.7-14.4) % Plt Count (182-369) x10^3/uL MPV (9.4-12.3) fL Gran % (34.0-71.1) % Immature Gran % (Auto) (0.001-0.429) % Nucleat RBC Rel Count (0.00-0.2) % Eos # (Auto) (0.04-0.36) x10^3/uL Immature Gran # (Auto) (0.001-0.031) x10^3u/L Absolute Lymphs (auto) (1.18-3.74) x10^3/uL Absolute Monos (auto) (0.24-0.86) x10^3/uL Absolute Nucleated RBC (0.00-0.012) x10^3u/L Lymphocytes % (19.3-51.7) % Monocytes % (4.7-12.5) % Eosinophils % (0.7-5.8) % Basophils % (0.1-1.2) % Absolute Granulocytes (1.56-6.13) x10^3/uL Basophils # (0.01-0.08) x10^3/uL Puncture Site pCO2 (35-45) mmHg pO2 (75-100) mmHg Base Excess (-2.0-2.0) O2 Saturation (94-100) g/dF ABG pH (7.35-7.45) ABG HCO3 (22-28) ABG O2 Sat (Measured) (95-100) % ABG O2 Content % vol Shabbir Test A-a Gradient a/A Ratio Hemoglobin Carboxyhemoglobin (0.0-6.9) % THgb Methemoglobin (1.4-1.5) % Temperature C POC O2 Flow Rate % Sodium (135-145) mmol/L Potassium (3.5-5.1) mmol/L Chloride (98-107) mmol/L Carbon Dioxide (22-30) mmol/L Anion Gap (5-15) MEQ/L BUN (7-17) mg/dL Creatinine (0.52-1.04) mg/dL Estimated GFR ML/MIN Glucose (74-106) mg/dL Calcium (8.4-10.2) mg/dL Magnesium (1.6-2.3) mg/dL Total Bilirubin (0.2-1.3) mg/dL AST (14-36) U/L ALT (0-35) U/L Alkaline Phosphatase (38-126) U/L Ammonia (9-30) umol/L Troponin I 0.024 (0.000-0.033) ng/mL NT-Pro-B Natriuret Pep (<300) pg/mL Serum Total Protein (6.3-8.2) g/dL Albumin (3.5-5.0) g/dL Urine Color Yellow (Yellow) Urine Appearance Clear (Clear) Urine pH 5.5 (4.6-8.0) Ur Specific [place] >=1.030 A (1.005-1.030) Urine Protein 300 A (Negative) Urine Glucose (UA) >=1000 A (Negative) mg/dL Urine Ketones Trace A (Negative) Urine Blood Negative (Negative) Urine Nitrite Negative (Negative) Urine Bilirubin Negative (Negative) Urine Urobilinogen 0.2 (0.2) mg/dL Ur Leukocyte Esterase Negative (Negative) U Hyaline Cast (Auto) 3-5 A (0-2) /LPF Urine Microscopic RBC 0-2 (0-5) /HPF Urine Microscopic WBC 21-50 A (0-5) /HPF Ur Epithelial Cells Few (None Seen) /HPF Urine Bacteria None Seen (None Seen) /HPF Urine Culture Reflexed YES (NO) Influenza Type A Ag (NEGATIVE) Influenza Type B Ag (NEGATIVE) RSV (PCR) (NEGATIVE) SARS-CoV-2 (PCR) (NEGATIVE) Slides for Path Review - Radiology Impressions Radiology Exams & Impressions: Radiology Procedures Category Date Time Status CHEST 1 VIEW (PORTABLE) Stat Exams 03/21/24 17:59 Taken HEAD WITHOUT CONTRAST [CT] Stat Exams 03/21/24 19:15 Taken Chest x-ray pulmonary edema with cephalization, fluid in the right median fissure, and increased basilar interstitial markings. No effusions or consolidations. (Images personally reviewed.) CT head radiology report pending, but reportedly no acute intracranial findings - Other Procedures and Tests Respiratory Therapy 03/21/24 23:32 Oxygen Nasal Cannula 4 lpm Assessment/Plan (1) UTI (urinary tract infection) Current Visit: No Status: Resolved Assessment & Plan: 63-year-old woman with history of CHF, hypothyroidism, hypertension, COPD, chronic hypoxic and hyper per Neck respiratory failure, diabetes, here with acute encephalopathy with leukocytosis, pyuria, and hyperglycemia. ## Acute cystitis unable to assess if patient has true symptomatic dysuria, but no other clear source identified for patient's leukocytosis and confusion. Most likely would be caused by her UTI. Follow-up urine cultures Continue Levaquin 500 mg IV daily ## Acute on chronic heart failure of unknown type suspect might be systolic based on patient's usage of carvedilol and losartan, but no echo available for evaluation. Patient has evidence of volume overload with pulmonary edema on chest x-ray and elevation of BNP from her baseline of 283 up currently to 3600. Not obvious on exam, but might be limited evaluation based on body habitus. Start Lasix 40 mg IV BID Check echocardiogram ## Acute encephalopathy patient has multiple possible causes including medications and psych theatric history, but most likely the acute change in mental status is secondary to the UTI as above. ## COPD, chronic hypoxic and hypercapnic respiratory failure patient is on her baseline 4 L oxygen. As well, while she has hypercarbia, it is currently compensated. No wheezing on exam, and no respiratory findings to suggest COPD exacerbation. Continue home Spiriva PRN albuterol Titrate oxygen to maintain SpO2 between 91 and 94% ## Type 2 diabetes Per prior notes, but patient is not on any medications for diabetes per her home medication list. Last hemoglobin A1c in our system was 6.2, done in October 2023. However, she is presenting with Glc 363, which is diagnostic for diabetes. Placed on moderate dose sliding scale insulin Check hemoglobin A1c ## Hypertension blood pressure more or less controlled. Continue home carvedilol 6.25 BID, losartan 25 mg daily, and Lasix as above ## Hypothyroidism Continue home levothyroxine 125 mcg daily ## Depression and anxiety given patient's use of Abilify and Tegretol, patient might have bipolar disorder? Continue home Cymbalta 120 mg daily, Abilify 10 mg daily, Tegretol 200 mg BID Hold home scheduled Xanax given acute encephalopathy as above CODE STATUS: Full code (by default) Diet: Diabetic Prophylaxis: Lovenox 40 mg daily Dispo: Admit to inpatient Entirety of encounter took place via live audio/video telemedicine device, with remote physician, patient in hospital, with the help of the bedside nurse. Code(s): N39.0 - URINARY TRACT INFECTION, SITE NOT SPECIFIED Telemedicine Encounter - Telemedicine Encounter Telemedicine Encounter: "The entirety of this encounter was performed via Telemedicine" This visit was performed using real-time audio and video connection between my location and thepatients locationwith the assistance of a surrogateat the patients location. Written or verbal consent was obtained from the patient/guardian to perform this [facility]. Any patient questions regarding the telemedicine interaction were answered.
[2024-03-22 05:11] LABS: Absolute Neutrophil Ct (ANC) 10.04 x10^3/uL (1.56-6.13); BASOPHIL % 0.5 % (0.1-1.2); Basophil (Absolute #) 0.07 x10^3/uL (0.01-0.08); Eosinophil % 0.1 % (0.7-5.8); Eosinophil (Absolute #) 0.01 x10^3/uL (0.04-0.36); Hematocrit 36.4 % (34.1-44.9); IMMATURE GRAN # 0.23 x10^3u/L (0.001-0.031); IMMATURE GRAN % 1.8 % (0.001-0.429); Lymphocyte (Absolute #) 1.92 x10^3/uL (1.18-3.74); Lymphocytes % 14.7 % (19.3-51.7); Mean Cell Volume 83.5 fL (79.4-94.8); Mean Corpuscular Hemoglobin 25.2 pg (25.6-32.2); Mean Corpuscular Hgb Concent. 30.2 g/dL (32.2-35.5); Mean Platelet Volume 10.2 fL (9.4-12.3); Monocyte (Absolute #) 0.78 x10^3/uL (0.24-0.86); NUCLEATED RBC # 0.02 x10^3u/L (0.00-0.012); NUCLEATED RBC % 0.2 % (0.00-0.2); Neutrophil % 76.9 % (34.0-71.1); Platelet Count 336 x10^3/uL (182-369); Red Blood Count 4.36 x10^6/uL (3.93-5.22); Red Cell Distribution Width 23.1 % (11.7-14.4); White Blood Count 13.1 x10^3/uL (3.98-10.04)
[2024-03-22 05:32] LABS: ALBUMIN 4.4 g/dL (3.5-5.0); ANION GAP 14.7 MEQ/L (5-15); BILIRUBIN,TOTAL 0.7 mg/dL (0.2-1.3); Calcium 9.2 mg/dL (8.4-10.2); Creatinine 1 0.96 mg/dL (0.52-1.04); EST GLOMERULAR FILTRATION RATE 66.9 ML/MIN; Potassium 4.6 mmol/L (3.5-5.1)
[2024-03-22 07:21] LABS: Slide Review 1 YES
[2024-03-22] MEDS: HUMALOG SQ PRN ×2 (08:22→17:18)
--- NOTE | 2024-03-22 08:34 | XRAY ---
Indication: Confusion. Multiple contiguous axial images obtained through the head without contrast. Comparison: August 10, 2023 Normal appearing brain parenchyma, ventricles, and bony calvarium for patient's age. Visualized paranasal sinuses and mastoid air cells are clear. Impression: Continued normal CT head without contrast exam.
--- NOTE | 2024-03-22 08:34 | XRAY ---
Indication: Short of breath. Comparison: November 17, 2023 Portable chest now demonstrates minimal right base infiltrate/atelectasis. Remaining heart and lungs unremarkable. Bony thorax intact again with osteopenia and mild degenerative changes.
[2024-03-22] MEDS: LYRICA 150MG PO SCH (10:51)
[2024-03-22] MEDS: Lasix 40 MG/4 ML IV SCH (10:53)
[2024-03-22] MEDS: Klor Con PO SCH (10:53)
[2024-03-22] MEDS: Coreg PO SCH (10:53)
[2024-03-22] MEDS: SYNTHROID 125 MCG PO SCH (10:53)
[2024-03-22] MEDS: Cozaar 50 MG PO SCH (10:53)
[2024-03-22] MEDS: Abilify 10 MG PO SCH (10:54)
[2024-03-22] MEDS: Cymbalta 30 MG Capsule PO SCH (10:54)
[2024-03-22] MEDS: ENOXAPARIN SODIUM SQ SCH (10:54)
[2024-03-22] MEDS: Tegretol 200 MG PO SCH (10:55)
[2024-03-22 11:18] LABS: A-aADO2 103; ABG HEMOGLOBIN 11.1; ABG POTASSIUM 4.4 (3.5-5.1); ARTERIAL BLD GAS O2 SATURATION 97.3 % (95-100); ARTERIAL BLOOD GAS BASE EXCESS 15.6 (-2.0-2.0); ARTERIAL BLOOD GAS FIO2 36 %; ARTERIAL BLOOD GAS PCO2 54 mmHg (35-45); ARTERIAL BLOOD GAS PO2 86 mmHg (75-100); ARTERIAL BLOOD GAS pH 7.49 (7.35-7.45); HCO3- 41.2 (22-28); HGB O2 SAT 95.8 g/dF (94-100); Methhemoglobin 0.4 % (1.4-1.5); paO2 pAO1 0.46
[2024-03-22 11:21] LABS: ABG SITE LEFT RADIAL; ALLEN TEST OK? YES
[2024-03-22] MEDS: Spiriva 18 Mcg/Cap Inhaler IH SCH (11:33)
[2024-03-22] MEDS: Levofloxacin 500MG/100ML D5W 500 MG/100 ML BAG IV SCH (23:45)
--- NOTE | 2024-03-23 05:08 | PCM.NOTE ---
Date and Time: 03/23/24 4058 Subjective Assessment: Ms Hoskins is a 63 year old female with a pmhx of CHF, hypertension, hypothyroidism, COPD (4 L oxygen), type 2 diabetes, and anxiety with panic disorder, who presented to ED 03/22/24 with confusion. Patient denies calling ambulance, but EMS reported that they were called by patient to the home. Upon EMS arrival, patient's SpO2 was in the 70s, but she was not wearing her regular oxygen (she wears 4 L at home). She was noted be very confused. Per patient, she is "doing fine", but did eventually say she was having some cough and dyspnea without any abdominal pain. However, she did not answer questions about dysuria or edema. On arrival to the ER, she remained on 4 L oxygen. She was noted to have chronic compensated hypercarbia on ABG, as well as elevations in her BNP and and her blood glucose levels, as well as a leukocytosis. In the ED, she was given Lasix 40 mg, Levaquin, and DuoNebs. 03/23/24: Met with patient bedside. A&O x 3 this morning. Dyspnea improved somewhat. Ucult with proteus - not sensitive to levaquin. Will start her on Augmentin as she has an allergy to ceftrixone. Denies urinary symptoms. Denies fever,cough, cp, abdominal pain, GARCIA, dizziness, N/V/D. - Review of Systems Constitutional: No Symptoms Eyes: No Symptoms Ears, Nose, & Throat: No Symptoms Respiratory: Short Of Breath, Wheezing Cardiac: No Symptoms Abdominal/Gastrointestinal: No Symptoms Genitourinary Symptoms: No Symptoms Musculoskeletal: No Symptoms Skin: No Symptoms Neurological: No Symptoms Psychological: No Symptoms Endocrine: No Symptoms Hematologic/Lymphatic: No Symptoms Immunological/Allergic: No Symptoms Objective Exam General Appearance: no apparent distress Neurologic Exam: alert, oriented x 3, cooperative Skin Exam: normal color Eye Exam: PERRL Ears, Nose, Throat Exam: normal ENT inspection Neck Exam: normal inspection Respiratory Exam: diminished breath sounds, crackles/rales Cardiovascular Exam: regular rate/rhythm, normal heart sounds Gastrointestinal/Abdomen Exam: soft, normal bowel sounds Extremity Exam: normal inspection Back Exam: normal inspection Pelvic Exam: deferred Rectal Exam: deferred Objective Data Vital Signs: Vital Signs - 24 hr Temp Pulse Resp BP Pulse Ox 03/23/24 04:00 97.7 F 68 20 117/57 93 L 03/23/24 00:00 97.1 F 76 16 108/59 94 L 03/22/24 22:25 95 03/22/24 22:00 83 20 95 03/22/24 20:00 98.0 F 90 20 100/55 97 03/22/24 16:00 97.8 F 88 16 142/72 95 03/22/24 12:00 97.9 F 101 H 14 147/72 03/22/24 07:29 97.8 F 99 H 16 132/94 95 03/22/24 06:35 92 H 24 95 Pain Assessment - Last Documented Pain Intensity 0 Intake and Output: Intake & Output 03/20/24 03/21/24 03/22/24 03/23/24 11:59 11:59 11:59 11:59 Intake Total 280 380 Output Total 500 500 Balance -220 -120 Weight 93.4 kg Lab Results: Lab Results-Last 24 Hours 03/22/24 03/22/24 03/22/24 Range/Units 04:36 04:36 04:36 WBC 13.1 H (3.98-10.04) x10^3/uL RBC 4.36 (3.93-5.22) x10^6/uL Hgb 11.0 L (11.2-15.7) g/dL Hct 36.4 (34.1-44.9) % MCV 83.5 (79.4-94.8) fL MCH 25.2 L (25.6-32.2) pg MCHC 30.2 L (32.2-35.5) g/dL RDW 23.1 H (11.7-14.4) % Plt Count 336 (182-369) x10^3/uL MPV 10.2 (9.4-12.3) fL Gran % 76.9 H (34.0-71.1) % Immature Gran % (Auto) 1.8 H (0.001-0.429) % Nucleat RBC Rel Count 0.2 (0.00-0.2) % Eos # (Auto) 0.01 L (0.04-0.36) x10^3/uL Immature Gran # (Auto) 0.23 H (0.001-0.031) x10^3u/L Absolute Lymphs (auto) 1.92 (1.18-3.74) x10^3/uL Absolute Monos (auto) 0.78 (0.24-0.86) x10^3/uL Absolute Nucleated RBC 0.02 H (0.00-0.012) x10^3u/L Lymphocytes % 14.7 L (19.3-51.7) % Monocytes % 6.0 (4.7-12.5) % Eosinophils % 0.1 L (0.7-5.8) % Basophils % 0.5 (0.1-1.2) % Absolute Granulocytes 10.04 H (1.56-6.13) x10^3/uL Basophils # 0.07 (0.01-0.08) x10^3/uL Puncture Site pCO2 (35-45) mmHg pO2 (75-100) mmHg Base Excess (-2.0-2.0) O2 Saturation (94-100) g/dF ABG pH (7.35-7.45) ABG HCO3 (22-28) ABG O2 Sat (Measured) (95-100) % Shabbir Test A-a Gradient a/A Ratio Hemoglobin Carboxyhemoglobin (0.0-6.9) % THgb Methemoglobin (1.4-1.5) % Temperature C POC O2 Flow Rate % Sodium 141 (135-145) mmol/L Potassium 4.6 (3.5-5.1) mmol/L Chloride 93 L (98-107) mmol/L Carbon Dioxide 37 H (22-30) mmol/L Anion Gap 14.7 (5-15) MEQ/L BUN 23 H (7-17) mg/dL Creatinine 0.96 (0.52-1.04) mg/dL Estimated GFR 66.9 ML/MIN Glucose 346 H (74-106) mg/dL POC Glucometer (74 to 106) mg/dL Hemoglobin A1c 9.51 H (4.5-6.0) % Lactic Acid (0.4-2.0) Calcium 9.2 (8.4-10.2) mg/dL Total Bilirubin 0.70 (0.2-1.3) mg/dL AST 32 (14-36) U/L ALT 32 (0-35) U/L Alkaline Phosphatase 129 H (38-126) U/L Serum Total Protein 8.0 (6.3-8.2) g/dL Albumin 4.4 (3.5-5.0) g/dL Slides for Path Review YES 03/22/24 03/22/24 03/22/24 Range/Units 07:48 11:13 11:13 WBC (3.98-10.04) x10^3/uL RBC (3.93-5.22) x10^6/uL Hgb (11.2-15.7) g/dL Hct (34.1-44.9) % MCV (79.4-94.8) fL MCH (25.6-32.2) pg MCHC (32.2-35.5) g/dL RDW (11.7-14.4) % Plt Count (182-369) x10^3/uL MPV (9.4-12.3) fL Gran % (34.0-71.1) % Immature Gran % (Auto) (0.001-0.429) % Nucleat RBC Rel Count (0.00-0.2) % Eos # (Auto) (0.04-0.36) x10^3/uL Immature Gran # (Auto) (0.001-0.031) x10^3u/L Absolute Lymphs (auto) (1.18-3.74) x10^3/uL Absolute Monos (auto) (0.24-0.86) x10^3/uL Absolute Nucleated RBC (0.00-0.012) x10^3u/L Lymphocytes % (19.3-51.7) % Monocytes % (4.7-12.5) % Eosinophils % (0.7-5.8) % Basophils % (0.1-1.2) % Absolute Granulocytes (1.56-6.13) x10^3/uL Basophils # (0.01-0.08) x10^3/uL Puncture Site LEFT RADIAL pCO2 54 H (35-45) mmHg pO2 86 (75-100) mmHg Base Excess 15.6 H (-2.0-2.0) O2 Saturation 95.8 (94-100) g/dF ABG pH 7.49 H (7.35-7.45) ABG HCO3 41.2 H* (22-28) ABG O2 Sat (Measured) 97.3 (95-100) % Shabbir Test YES A-a Gradient 103 a/A Ratio 0.46 Hemoglobin 11.1 Carboxyhemoglobin 1.0 (0.0-6.9) % THgb Methemoglobin 0.4 L (1.4-1.5) % Temperature 37.0 C POC O2 Flow Rate 36 % Sodium (135-145) mmol/L Potassium 4.4 (3.5-5.1) mmol/L Chloride (98-107) mmol/L Carbon Dioxide (22-30) mmol/L Anion Gap (5-15) MEQ/L BUN (7-17) mg/dL Creatinine (0.52-1.04) mg/dL Estimated GFR ML/MIN Glucose (74-106) mg/dL POC Glucometer 318 H (74 to 106) mg/dL Hemoglobin A1c (4.5-6.0) % Lactic Acid 3.0 H (0.4-2.0) Calcium (8.4-10.2) mg/dL Total Bilirubin (0.2-1.3) mg/dL AST (14-36) U/L ALT (0-35) U/L Alkaline Phosphatase (38-126) U/L Serum Total Protein (6.3-8.2) g/dL Albumin (3.5-5.0) g/dL Slides for Path Review 03/22/24 03/22/24 03/22/24 Range/Units 11:46 14:00 17:01 WBC (3.98-10.04) x10^3/uL RBC (3.93-5.22) x10^6/uL Hgb (11.2-15.7) g/dL Hct (34.1-44.9) % MCV (79.4-94.8) fL MCH (25.6-32.2) pg MCHC (32.2-35.5) g/dL RDW (11.7-14.4) % Plt Count (182-369) x10^3/uL MPV (9.4-12.3) fL Gran % (34.0-71.1) % Immature Gran % (Auto) (0.001-0.429) % Nucleat RBC Rel Count (0.00-0.2) % Eos # (Auto) (0.04-0.36) x10^3/uL Immature Gran # (Auto) (0.001-0.031) x10^3u/L Absolute Lymphs (auto) (1.18-3.74) x10^3/uL Absolute Monos (auto) (0.24-0.86) x10^3/uL Absolute Nucleated RBC (0.00-0.012) x10^3u/L Lymphocytes % (19.3-51.7) % Monocytes % (4.7-12.5) % Eosinophils % (0.7-5.8) % Basophils % (0.1-1.2) % Absolute Granulocytes (1.56-6.13) x10^3/uL Basophils # (0.01-0.08) x10^3/uL Puncture Site pCO2 (35-45) mmHg pO2 (75-100) mmHg Base Excess (-2.0-2.0) O2 Saturation (94-100) g/dF ABG pH (7.35-7.45) ABG HCO3 (22-28) ABG O2 Sat (Measured) (95-100) % Shabbir Test A-a Gradient a/A Ratio Hemoglobin Carboxyhemoglobin (0.0-6.9) % THgb Methemoglobin (1.4-1.5) % Temperature C POC O2 Flow Rate % Sodium (135-145) mmol/L Potassium (3.5-5.1) mmol/L Chloride (98-107) mmol/L Carbon Dioxide (22-30) mmol/L Anion Gap (5-15) MEQ/L BUN (7-17) mg/dL Creatinine (0.52-1.04) mg/dL Estimated GFR ML/MIN Glucose (74-106) mg/dL POC Glucometer 379 H 268 H 206 H (74 to 106) mg/dL Hemoglobin A1c (4.5-6.0) % Lactic Acid (0.4-2.0) Calcium (8.4-10.2) mg/dL Total Bilirubin (0.2-1.3) mg/dL AST (14-36) U/L ALT (0-35) U/L Alkaline Phosphatase (38-126) U/L Serum Total Protein (6.3-8.2) g/dL Albumin (3.5-5.0) g/dL Slides for Path Review 03/22/24 Range/Units 20:32 WBC (3.98-10.04) x10^3/uL RBC (3.93-5.22) x10^6/uL Hgb (11.2-15.7) g/dL Hct (34.1-44.9) % MCV (79.4-94.8) fL MCH (25.6-32.2) pg MCHC (32.2-35.5) g/dL RDW (11.7-14.4) % Plt Count (182-369) x10^3/uL MPV (9.4-12.3) fL Gran % (34.0-71.1) % Immature Gran % (Auto) (0.001-0.429) % Nucleat RBC Rel Count (0.00-0.2) % Eos # (Auto) (0.04-0.36) x10^3/uL Immature Gran # (Auto) (0.001-0.031) x10^3u/L Absolute Lymphs (auto) (1.18-3.74) x10^3/uL Absolute Monos (auto) (0.24-0.86) x10^3/uL Absolute Nucleated RBC (0.00-0.012) x10^3u/L Lymphocytes % (19.3-51.7) % Monocytes % (4.7-12.5) % Eosinophils % (0.7-5.8) % Basophils % (0.1-1.2) % Absolute Granulocytes (1.56-6.13) x10^3/uL Basophils # (0.01-0.08) x10^3/uL Puncture Site pCO2 (35-45) mmHg pO2 (75-100) mmHg Base Excess (-2.0-2.0) O2 Saturation (94-100) g/dF ABG pH (7.35-7.45) ABG HCO3 (22-28) ABG O2 Sat (Measured) (95-100) % Shabbir Test A-a Gradient a/A Ratio Hemoglobin Carboxyhemoglobin (0.0-6.9) % THgb Methemoglobin (1.4-1.5) % Temperature C POC O2 Flow Rate % Sodium (135-145) mmol/L Potassium (3.5-5.1) mmol/L Chloride (98-107) mmol/L Carbon Dioxide (22-30) mmol/L Anion Gap (5-15) MEQ/L BUN (7-17) mg/dL Creatinine (0.52-1.04) mg/dL Estimated GFR ML/MIN Glucose (74-106) mg/dL POC Glucometer 212 H (74 to 106) mg/dL Hemoglobin A1c (4.5-6.0) % Lactic Acid (0.4-2.0) Calcium (8.4-10.2) mg/dL Total Bilirubin (0.2-1.3) mg/dL AST (14-36) U/L ALT (0-35) U/L Alkaline Phosphatase (38-126) U/L Serum Total Protein (6.3-8.2) g/dL Albumin (3.5-5.0) g/dL Slides for Path Review Radiology Exams: Radiology Procedures Category Date Time Status CHEST 1 VIEW (PORTABLE) Stat Exams 03/21/24 17:59 Completed ECHO W/2D AND DOPPLER [US] Routine Exams 03/22/24 04:39 Taken HEAD WITHOUT CONTRAST [CT] Stat Exams 03/21/24 19:15 Completed Multi-Disciplinary Progress Notes: Multi-Disciplinary Progress Notes 03/22/24 14:24 Case Management Note by Ayesha Lopez REFERRAL FAXED TO [facility] AND LOC STARTED AT THIS TIME S/W SON FELI AND BROTHER MASOOD- BOTH UPDATED ON PATIENT'S RE-ADMIT TO FACILITY AFTER RECENT DC FROM SNF- THEY BOTH AGREE IT IS BEST FOR PATIENT TO RETURN TO [facility] AT TIME OF DC Initialized on 03/22/24 14:24 - END OF NOTE 03/22/24 09:35 (created 03/22/24 13:44) Case Management Note by Kandi Feldman, PURCHASING DEPARTMENT CLERK, FROM [facility] CALLED TO CHECK ON PATIENT. REPORTS THAT SHE DID HOME VISIT YESTERDAY AND SHE WAS CONCERNED ABOUT PATIENT. REPORTS THAT THEY WERE IN THE PROCESS TO GETTING HER (HOME CARE) ASSISTANCE IN THE HOME WITH NEW PROGRAM. REPORTS THAT PT WAS CONFUSED, REPORTED TO KADEN THAT SHE DID NOT HAVE A GLUCOSE TESTING DEVICE TO TEST HER BLOOD SUGAR, HER INSULIN THAT IS SUPPOSED TO BE REFRIGERATED WAS OUT ON THE TABLE, AND SHE ALSO REPORTED THAT SHE HAD NO IDEA WHERE HER NEBULIZER WAS. REQUESTED THAT KADEN LOOK FOR IT, BUT SHE REPORTED THAT SHE WAS NOT GOING TO GO THROUGH THE PATIENT'S BELONGINGS. KADEN REPORTS THAT SHE IS CONCERNED FOR PT TO RETURN HOME. ALSO REPORTS THAT PT HAS BEEN IN [facility] FROM 2023 THROUGH Thursday. REPORTS THAT PT HAD ONLY BEEN HOME A FEW DAYS, AND WAS FOUND TO BE UNSAFE. KADEN REQUESTS THAT SHE BE UPDATED ON DISCHARGE PLAN, HER WORK CELL NUMBER IS . KADEN REPORTS THAT SHE WILL FOLLOW PATIENT ON DISCHARGE. Initialized on 03/22/24 13:44 - END OF NOTE Assessment/Plan (1) Acute and chronic respiratory failure with hypoxia Current Visit: Yes Status: Acute Assessment & Plan: -secondary to pneumonia/copd exacerbation -CXR reviewed with right base infiltrate -4L at baseline - supplemental oxygen with goal spo2 > 91% - currently on bipap -solumedrol, levaquin, duonebs, INH -consider CT if no improvement -ABG prn if significant hypoxia/lethargy/confusion -Blood culture/blood cult pending 03/23/24: -Bcult NGTD -At baseline 4L -Antibiotic changed to Augmentin due to ucult -sensitivity -continue solumedrol/nebs/INH Code(s): J96.21 - ACUTE AND CHRONIC RESPIRATORY FAILURE WITH HYPOXIA (2) Pneumonia Current Visit: Yes Status: Acute Assessment & Plan: -see plan above Code(s): J18.9 - PNEUMONIA, UNSPECIFIED ORGANISM (3) UTI (urinary tract infection) Current Visit: No Status: Resolved Assessment & Plan: -UA suspicious for UTI - -Culture growing Proteus - not sensitive to Levaquin- will change to Augmentin due to allergy profile CODE STATUS: Full code (by default) Diet: Diabetic Prophylaxis: Lovenox 40 mg daily Dispo: Admit to inpatient Code(s): N39.0 - URINARY TRACT INFECTION, SITE NOT SPECIFIED (4) Acute on chronic heart failure Current Visit: Yes Status: Acute Assessment & Plan: -BNP 3600 -Echo reviewed with EF noted at 83%- borderline right atrial enlargement/moderate concentric LVH/ hyperdynamic LV function/mild aortic stenosis/ mild MV regurgitation -discontinue lasix 40 BID- pt euvolemic Code(s): I50.9 - HEART FAILURE, UNSPECIFIED (5) Acute encephalopathy Current Visit: Yes Status: Acute Assessment & Plan: -Most likely secondary to ARF/UTI/Pneumonia -CT head negative -continue to monitor 03/23/23: -Resolved - patient now a& o x 4 - requesting home anxiety meds be resumed - will resume Code(s): G93.40 - ENCEPHALOPATHY, UNSPECIFIED (6) COPD exacerbation Current Visit: Yes Status: Acute Assessment & Plan: -see ARF -continue home trelegy if available Code(s): J44.1 - CHRONIC OBSTRUCTIVE PULMONARY DISEASE W (ACUTE) EXACERBATION (7) Type 2 diabetes mellitus Current Visit: Yes Status: Acute Assessment & Plan: Per prior notes, but patient is not on any medications for diabetes per her home medication list. Last hemoglobin A1c in our system was 6.2, done in October 2023. However, she is presenting with Glc 363, which is diagnostic for diabetes. HD SSI -ADA diet A1c 9.51 (8) HTN (hypertension) Current Visit: Yes Status: Acute Assessment & Plan: -stable continue home meds Code(s): I10 - ESSENTIAL (PRIMARY) HYPERTENSION (9) Depression Current Visit: Yes Status: Acute Assessment & Plan: -continue home meds -with panic disorder CODE STATUS: Full code (by default) Diet: Diabetic Prophylaxis: Lovenox 40 mg daily Dispo: Admit to inpatient Code(s): F32.A - DEPRESSION, UNSPECIFIED
[2024-03-23 05:25] LABS: Absolute Neutrophil Ct (ANC) 5.45 x10^3/uL (1.56-6.13); BASOPHIL % 1.1 % (0.1-1.2); Basophil (Absolute #) 0.11 x10^3/uL (0.01-0.08); Eosinophil % 2.5 % (0.7-5.8); Eosinophil (Absolute #) 0.26 x10^3/uL (0.04-0.36); Hematocrit 32.2 % (34.1-44.9); Hemoglobin 9.8 g/dL (11.2-15.7); IMMATURE GRAN # 0.23 x10^3u/L (0.001-0.031); IMMATURE GRAN % 2.3 % (0.001-0.429); Lymphocyte (Absolute #) 3.36 x10^3/uL (1.18-3.74); Lymphocytes % 32.9 % (19.3-51.7); Mean Cell Volume 84.5 fL (79.4-94.8); Mean Corpuscular Hemoglobin 25.7 pg (25.6-32.2); Mean Corpuscular Hgb Concent. 30.4 g/dL (32.2-35.5); Mean Platelet Volume 9.9 fL (9.4-12.3); Monocyte (Absolute #) 0.79 x10^3/uL (0.24-0.86); Monocytes % 7.7 % (4.7-12.5); NUCLEATED RBC # 0.02 x10^3u/L (0.00-0.012); NUCLEATED RBC % 0.2 % (0.00-0.2); Neutrophil % 53.5 % (34.0-71.1); Platelet Count 271 x10^3/uL (182-369); Red Blood Count 3.81 x10^6/uL (3.93-5.22); Red Cell Distribution Width 22.5 % (11.7-14.4); White Blood Count 10.2 x10^3/uL (3.98-10.04)
[2024-03-23 05:32] LABS: ALBUMIN 3.9 g/dL (3.5-5.0); ANION GAP 10.1 MEQ/L (5-15); BILIRUBIN,TOTAL 0.5 mg/dL (0.2-1.3); Calcium 8.5 mg/dL (8.4-10.2); Creatinine 1 1.78 mg/dL (0.52-1.04); EST GLOMERULAR FILTRATION RATE 31.9 ML/MIN; Potassium 4.9 mmol/L (3.5-5.1); Total Protein 7.1 g/dL (6.3-8.2)
[2024-03-23 07:11] LABS: Slide Review 1 YES
[2024-03-23] MEDS: Protonix 40MG Tablet PO SCH (09:19)
[2024-03-23] MEDS: solu-MEDROL 40 MG, Sterile H2O 10 ml 1 ML IV SCH (09:20)
[2024-03-23] MEDS: xanAX 0.25 MG PO SCH (11:18)
[2024-03-23] MEDS: Augmentin 875-125 Tablet PO SCH ×2 (13:22→14:24)
[2024-03-23] MEDS: Lantus Insulin SQ SCH (14:22)
--- NOTE | 2024-03-24 05:08 | PCM.NOTE ---
Date and Time: 03/24/24 0505 Subjective Assessment: Ms Hoskins is a 63 year old female with a pmhx of CHF, hypertension, hypothyroidism, COPD (4 L oxygen), type 2 diabetes, and anxiety with panic disorder, who presented to ED 03/22/24 with confusion. Patient denies calling ambulance, but EMS reported that they were called by patient to the home. Upon EMS arrival, patient's SpO2 was in the 70s, but she was not wearing her regular oxygen (she wears 4 L at home). She was noted be very confused. Per patient, she is "doing fine", but did eventually say she was having some cough and dyspnea without any abdominal pain. However, she did not answer questions about dysuria or edema. On arrival to the ER, she remained on 4 L oxygen. She was noted to have chronic compensated hypercarbia on ABG, as well as elevations in her BNP and and her blood glucose levels, as well as a leukocytosis. In the ED, she was given Lasix 40 mg, Levaquin, and DuoNebs. 03/23/24: Met with patient bedside. A&O x 3 this morning. Dyspnea improved somewhat. Ucult with proteus - not sensitive to levaquin. Will start her on Augmentin as she has an allergy to ceftrixone. Denies urinary symptoms. Denies fever,cough, cp, abdominal pain, GARCIA, dizziness, N/V/D. Objective Data Vital Signs: Vital Signs - 24 hr Temp Pulse Resp BP Pulse Ox 03/24/24 03:55 17 03/23/24 23:32 97.1 F 69 16 164/67 97 03/23/24 20:00 96.9 F 75 17 114/59 97 03/23/24 18:50 82 18 97 03/23/24 16:00 98.6 F 71 16 136/65 98 03/23/24 11:44 97.9 F 70 16 103/55 98 03/23/24 07:34 98.1 F 73 16 112/57 95 03/23/24 07:24 68 14 93 L Pain Assessment - Last Documented Pain Intensity 0 Intake and Output: Intake & Output 03/21/24 03/22/24 03/23/24 03/24/24 11:59 11:59 11:59 11:59 Intake Total 280 1220 1360 Output Total 500 1050 1050 Balance -220 170 310 Weight 93.4 kg 92.9 kg 92.9 kg Lab Results: Lab Results-Last 24 Hours 03/23/24 03/23/24 03/23/24 Range/Units 05:07 05:07 07:48 WBC 10.2 H (3.98-10.04) x10^3/uL RBC 3.81 L (3.93-5.22) x10^6/uL Hgb 9.8 L (11.2-15.7) g/dL Hct 32.2 L (34.1-44.9) % MCV 84.5 (79.4-94.8) fL MCH 25.7 (25.6-32.2) pg MCHC 30.4 L (32.2-35.5) g/dL RDW 22.5 H (11.7-14.4) % Plt Count 271 (182-369) x10^3/uL MPV 9.9 (9.4-12.3) fL Gran % 53.5 (34.0-71.1) % Immature Gran % (Auto) 2.3 H (0.001-0.429) % Nucleat RBC Rel Count 0.2 (0.00-0.2) % Eos # (Auto) 0.26 (0.04-0.36) x10^3/uL Immature Gran # (Auto) 0.23 H (0.001-0.031) x10^3u/L Absolute Lymphs (auto) 3.36 (1.18-3.74) x10^3/uL Absolute Monos (auto) 0.79 (0.24-0.86) x10^3/uL Absolute Nucleated RBC 0.02 H (0.00-0.012) x10^3u/L Lymphocytes % 32.9 (19.3-51.7) % Monocytes % 7.7 (4.7-12.5) % Eosinophils % 2.5 (0.7-5.8) % Basophils % 1.1 (0.1-1.2) % Absolute Granulocytes 5.45 (1.56-6.13) x10^3/uL Basophils # 0.11 H (0.01-0.08) x10^3/uL Sodium 132 L D (135-145) mmol/L Potassium 4.9 (3.5-5.1) mmol/L Chloride 93 L (98-107) mmol/L Carbon Dioxide 33 H (22-30) mmol/L Anion Gap 10.1 (5-15) MEQ/L BUN 40 H (7-17) mg/dL Creatinine 1.78 H (0.52-1.04) mg/dL Estimated GFR 31.9 ML/MIN Glucose 172 H (74-106) mg/dL POC Glucometer 161 H (74 to 106) mg/dL Lactic Acid (0.4-2.0) Calcium 8.5 (8.4-10.2) mg/dL Total Bilirubin 0.50 (0.2-1.3) mg/dL AST 29 (14-36) U/L ALT 22 (0-35) U/L Alkaline Phosphatase 109 (38-126) U/L Serum Total Protein 7.1 (6.3-8.2) g/dL Albumin 3.9 (3.5-5.0) g/dL Slides for Path Review YES 03/23/24 03/23/24 03/23/24 Range/Units 11:33 16:30 20:41 WBC (3.98-10.04) x10^3/uL RBC (3.93-5.22) x10^6/uL Hgb (11.2-15.7) g/dL Hct (34.1-44.9) % MCV (79.4-94.8) fL MCH (25.6-32.2) pg MCHC (32.2-35.5) g/dL RDW (11.7-14.4) % Plt Count (182-369) x10^3/uL MPV (9.4-12.3) fL Gran % (34.0-71.1) % Immature Gran % (Auto) (0.001-0.429) % Nucleat RBC Rel Count (0.00-0.2) % Eos # (Auto) (0.04-0.36) x10^3/uL Immature Gran # (Auto) (0.001-0.031) x10^3u/L Absolute Lymphs (auto) (1.18-3.74) x10^3/uL Absolute Monos (auto) (0.24-0.86) x10^3/uL Absolute Nucleated RBC (0.00-0.012) x10^3u/L Lymphocytes % (19.3-51.7) % Monocytes % (4.7-12.5) % Eosinophils % (0.7-5.8) % Basophils % (0.1-1.2) % Absolute Granulocytes (1.56-6.13) x10^3/uL Basophils # (0.01-0.08) x10^3/uL Sodium (135-145) mmol/L Potassium (3.5-5.1) mmol/L Chloride (98-107) mmol/L Carbon Dioxide (22-30) mmol/L Anion Gap (5-15) MEQ/L BUN (7-17) mg/dL Creatinine (0.52-1.04) mg/dL Estimated GFR ML/MIN Glucose (74-106) mg/dL POC Glucometer 335 H 326 H 328 H (74 to 106) mg/dL Lactic Acid (0.4-2.0) Calcium (8.4-10.2) mg/dL Total Bilirubin (0.2-1.3) mg/dL AST (14-36) U/L ALT (0-35) U/L Alkaline Phosphatase (38-126) U/L Serum Total Protein (6.3-8.2) g/dL Albumin (3.5-5.0) g/dL Slides for Path Review 03/24/24 Range/Units 04:40 WBC (3.98-10.04) x10^3/uL RBC (3.93-5.22) x10^6/uL Hgb (11.2-15.7) g/dL Hct (34.1-44.9) % MCV (79.4-94.8) fL MCH (25.6-32.2) pg MCHC (32.2-35.5) g/dL RDW (11.7-14.4) % Plt Count (182-369) x10^3/uL MPV (9.4-12.3) fL Gran % (34.0-71.1) % Immature Gran % (Auto) (0.001-0.429) % Nucleat RBC Rel Count (0.00-0.2) % Eos # (Auto) (0.04-0.36) x10^3/uL Immature Gran # (Auto) (0.001-0.031) x10^3u/L Absolute Lymphs (auto) (1.18-3.74) x10^3/uL Absolute Monos (auto) (0.24-0.86) x10^3/uL Absolute Nucleated RBC (0.00-0.012) x10^3u/L Lymphocytes % (19.3-51.7) % Monocytes % (4.7-12.5) % Eosinophils % (0.7-5.8) % Basophils % (0.1-1.2) % Absolute Granulocytes (1.56-6.13) x10^3/uL Basophils # (0.01-0.08) x10^3/uL Sodium (135-145) mmol/L Potassium (3.5-5.1) mmol/L Chloride (98-107) mmol/L Carbon Dioxide (22-30) mmol/L Anion Gap (5-15) MEQ/L BUN (7-17) mg/dL Creatinine (0.52-1.04) mg/dL Estimated GFR ML/MIN Glucose (74-106) mg/dL POC Glucometer (74 to 106) mg/dL Lactic Acid 1.8 (0.4-2.0) Calcium (8.4-10.2) mg/dL Total Bilirubin (0.2-1.3) mg/dL AST (14-36) U/L ALT (0-35) U/L Alkaline Phosphatase (38-126) U/L Serum Total Protein (6.3-8.2) g/dL Albumin (3.5-5.0) g/dL Slides for Path Review Radiology Exams: Radiology Procedures Category Date Time Status ECHO W/2D AND DOPPLER [US] Routine Exams 03/22/24 04:39 Taken Multi-Disciplinary Progress Notes: Multi-Disciplinary Progress Notes 03/23/24 12:54 Case Management Note by Ayesha Lopez S/W [facility]- THEY REPORT THEY HAVE ONLY SEEN PATIENT X2 SINCE DC HOME. THEY WILL NEED NEW ORDERS FOR HER AT [place]. SHE WILL CHECK DOCUMENTATION TO SEE [facility] THEIR NURSE HAS SAID REGARDING DIABETIC SUPPLIES AND EQUIPMENT AT HOME. Initialized on 03/23/24 12:54 - END OF NOTE 03/23/24 12:15 Case Management Note by Ayesha Lopez PATIENT MORE ALERT AND ORIENTED TODAY. SHE DOES NOT WANT TO RETURN TO [facility] AT TIME OF DC. SHE VOICED THAT "EVERY TIME I GO THERE I GET STUCK". WENT OVER CONCERNS WITH PATIENT REGARDING HER OXYGEN AND SUGAR CONTROL AT HOME. SHE REPORTS SHE HAS WORKING OXYGEN WITH [employer] AT HOME THRU [facility]. SHE REPORTS SHE WAS NOT A DIABETIC PRIOR TO HER STAY AT [facility] SO SHE WAS UNAWARE OF THE INSULIN NEEDING TO BE REFRIGERATED AND THAT SHE DID NOT HAVE NEEDLES FOR INSULIN INJECTIONS. SHE HAD MADE AN APPOINTMENT WITH HER DOCTOR ON THURSDAY TO GET EVERYTHING SHE NEEDS. SHE REPORTS SHE DOES KNOW HOW TO GIVE HER INJECTIONS AND HOW TO CHECK HER SUGAR AND THAT HER SON JIN WAS GOING TO PRE-DRAW UP HER INSULIN FOR HER SO IT WAS READY TO GO BUT THEY HAD FORGOT TO DO THAT. SHE WAS S UPPOSED TO GO TO THE EYE DOCTOR TODAY SO SHE COULD SEE TO DRAW UP HER OWN INSULIN. CALLED [employer], KADEN, THAT HAD CHECKED ON PATIENT AT HOME TO GO OVER THE ABOVE. CALL WENT STRAIGHT TO [employer]IL BUT THEN WAS UNABLE TO LEAVE MESSAGE. PATIENT REPORTS [facility] WAS SUPPOSED TO BE SET UP FOR HER BUT THEY HAD NOT STARTED YET- WILL TRY TO ARRANGE A VISIT SAME DAY OF DC SO THEY CAN HELP GET PATIENT SETTLED AT HOME AND MAKE SURE SHE HAS EVERYTHING. Initialized on 03/23/24 12:15 - END OF NOTE 03/23/24 09:29 Case Management Note by Ayesha Lopez PASRR AND LEVEL ON CARE COMPLETE- NO LEVEL II REQUIRED- PATIENT EXEMPTED, LOC APPROVED FOR 30 DAYS. COPIES FAXED TO [facility] AND PLACED ON CHART Initialized on 03/23/24 09:29 - END OF NOTE Assessment/Plan (1) Acute and chronic respiratory failure with hypoxia Current Visit: Yes Status: Acute Assessment & Plan: -secondary to pneumonia/copd exacerbation -CXR reviewed with right base infiltrate -4L at baseline - supplemental oxygen with goal spo2 > 91% - currently on bipap -solumedrol, levaquin, duonebs, INH -consider CT if no improvement -ABG prn if significant hypoxia/lethargy/confusion -Blood culture/blood cult pending 03/23/24: -Bcult NGTD -At baseline 4L -Antibiotic changed to Augmentin due to ucult -sensitivity -continue solumedrol/nebs/INH 03/24: -WBC reviewed and WNL at 8.3 -Lactic acid reviewed at 1.8 WNL Code(s): J96.21 - ACUTE AND CHRONIC RESPIRATORY FAILURE WITH HYPOXIA (2) Pneumonia Current Visit: Yes Status: Acute Assessment & Plan: -see plan above Code(s): J18.9 - PNEUMONIA, UNSPECIFIED ORGANISM (3) UTI (urinary tract infection) Current Visit: No Status: Resolved Assessment & Plan: -UA suspicious for UTI - -Culture growing Proteus - not sensitive to Levaquin- will change to Augmentin due to allergy profile Code(s): N39.0 - URINARY TRACT INFECTION, SITE NOT SPECIFIED (4) Acute on chronic heart failure Current Visit: Yes Status: Acute Assessment & Plan: -BNP 3600 -Echo reviewed with EF noted at 83%- borderline right atrial enlargement/moderate concentric LVH/ hyperdynamic LV function/mild aortic stenosis/ mild MV regurgitation -discontinue lasix 40 BID- pt euvolemic Code(s): I50.9 - HEART FAILURE, UNSPECIFIED (5) Acute encephalopathy Current Visit: Yes Status: Acute Assessment & Plan: -Most likely secondary to ARF/UTI/Pneumonia -CT head negative -continue to monitor 03/23/23: -Resolved - patient now a& o x 4 - requesting home anxiety meds be resumed - will resume Code(s): G93.40 - ENCEPHALOPATHY, UNSPECIFIED (6) COPD exacerbation Current Visit: Yes Status: Acute Assessment & Plan: -see ARF -continue home trelegy if available Code(s): J44.1 - CHRONIC OBSTRUCTIVE PULMONARY DISEASE W (ACUTE) EXACERBATION (7) Type 2 diabetes mellitus Current Visit: Yes Status: Acute Assessment & Plan: Per prior notes, but patient is not on any medications for diabetes per her home medication list. Last hemoglobin A1c in our system was 6.2, done in October 2023. However, she is presenting with Glc 363, which is diagnostic for diabetes. HD SSI -ADA diet A1c 9.51 (8) HTN (hypertension) Current Visit: Yes Status: Acute Assessment & Plan: -stable continue home meds Code(s): I10 - ESSENTIAL (PRIMARY) HYPERTENSION (9) Depression Current Visit: Yes Status: Acute Assessment & Plan: -continue home meds -with panic disorder CODE STATUS: Full code (by default) Diet: Diabetic Prophylaxis: Lovenox 40 mg daily Dispo: Admit to inpatient Code(s): J96.21 - ACUTE AND CHRONIC RESPIRATORY FAILURE WITH HYPOXIA (2) Pneumonia Current Visit: Yes Status: Acute Code(s): J18.9 - PNEUMONIA, UNSPECIFIED O RGANISM (3) UTI (urinary tract infection) Current Visit: No Status: Resolved Code(s): N39.0 - URINARY TRACT INFECTION, SITE NOT SPECIFIED (4) Acute on chronic heart failure Current Visit: Yes Status: Acute Code(s): I50.9 - HEART FAILURE, UNSPECIFIED (5) Acute encephalopathy Current Visit: Yes Status: Acute Code(s): G93.40 - ENCEPHALOPATHY, UNSPECIFIED (6) COPD exacerbation Current Visit: Yes Status: Acute Code(s): J44.1 - CHRONIC OBSTRUCTIVE PULMONARY DISEASE W (ACUTE) EXACERBATION (7) Type 2 diabetes mellitus Current Visit: Yes Status: Acute (8) HTN (hypertension) Current Visit: Yes Status: Acute Code(s): I10 - ESSENTIAL (PRIMARY) HYPERTENSION (9) Depression Current Visit: Yes Status: Acute Code(s): F32.A - DEPRESSION, UNSPECIFIED
[2024-03-24 05:15] LABS: Hematocrit 33.4 % (34.1-44.9); Hemoglobin 9.9 g/dL (11.2-15.7); Mean Cell Volume 86.1 fL (79.4-94.8); Mean Corpuscular Hemoglobin 25.5 pg (25.6-32.2); Mean Corpuscular Hgb Concent. 29.6 g/dL (32.2-35.5); Mean Platelet Volume 9.9 fL (9.4-12.3); Platelet Count 255 x10^3/uL (182-369); Red Blood Count 3.88 x10^6/uL (3.93-5.22); Red Cell Distribution Width 22.6 % (11.7-14.4); White Blood Count 8.3 x10^3/uL (3.98-10.04)
[2024-03-24 05:52] LABS: ALBUMIN 3.8 g/dL (3.5-5.0); ANION GAP 9.7 MEQ/L (5-15); BILIRUBIN,TOTAL 0.4 mg/dL (0.2-1.3); Calcium 8.8 mg/dL (8.4-10.2); Creatinine 1 0.99 mg/dL (0.52-1.04); EST GLOMERULAR FILTRATION RATE 64.5 ML/MIN; Total Protein 6.9 g/dL (6.3-8.2)
[2024-03-24] MEDS: Kayexylate 15 GM/60 ML PO ONE (06:17)
[2024-03-24 07:44] VITALS: RESP 16
[2024-03-24] MEDS: TYLENOL 325 MG PO PRN (07:47)
[2024-03-24 07:50] LABS: Basophil 1 % (0.1-1.2); Eosinophil 1 % (0.7-5.8); Lymphocytes 9 % (19.3-51.7); Metamyelocyte 2 %; Monocyte 1 % (4.7-12.5); Myelocyte 1 %; Neutrophils 85 % (34.0-71.1)
[2024-03-24 07:52] LABS: ANISOCYTOSIS 1+; Platelet Estimate NORMAL (NORMAL)
[2024-03-24 07:54] LABS: Total Cells Counted 100
[2024-03-24] MEDS: DELTASONE 20 MG PO SCH (09:38)
--- NOTE | 2024-03-24 12:24 | PCM.DS ---
Discharge Summary Date of Admission: 03/21/24 23:31 Date of Discharge: 03/24/24 Admitting Physician: BRIGIDO HARMON MD Primary Care Provider: CARINE MORENO Allergies Allergies ceftriaxone Allergy (Severe, Verified 03/22/24 00:47) Anaphylactic Reaction gabapentin Allergy (Severe, Verified 03/22/24 00:47) pain cefazedone Allergy (Verified 03/22/24 00:47) hydralazine Allergy (Verified 03/22/24 00:47) Hospital Summary - Hospital Course Hospital Course: Ms Hoskins is a 63 year old female with a pmhx of CHF, hypertension, hypothyroidism, COPD (4 L oxygen), type 2 diabetes, and anxiety with panic disorder, who presented to ED 03/22/24 with confusion. Patient denies calling ambulance, but EMS reported that they were called by patient to the home. Upon EMS arrival, patient's SpO2 was in the 70s, but she was not wearing her regular oxygen (she wears 4 L at home). She was noted be very confused. Per patient, she is "doing fine", but did eventually say she was having some cough and dyspnea without any abdominal pain. However, she did not answer questions about dysuria or edema. On arrival to the ER, she remained on 4 L oxygen. She was noted to have chronic compensated hypercarbia on ABG, as well as elevations in her BNP and and her blood glucose levels, as well as a leukocytosis. In the ED, she was given Lasix 40 mg, Levaquin, and DuoNebs. Dyspnea improved and now at baseline oxygen. Ucult with proteus - not sensitive to levaquin. Will start her on Augmentin as she has an allergy to ceftrixone. Denies urinary symptoms. Patient stable for discharge to SNF once potassium level has returned to normal. Will continue Augmentin for UTI with follow up UA for resolution OP. Discharge Note New Diagnosis: New Medications: Follow Up: Results pending: Outpatient testing to order: Latest Assessment & Plan (1) Acute and chronic respiratory failure with hypoxia Current Visit: Yes Status: Acute Assessment & Plan: -secondary to pneumonia/copd exacerbation -CXR reviewed with right base infiltrate -4L at baseline - supplemental oxygen with goal spo2 > 91% - currently on bipap -solumedrol, levaquin, duonebs, INH -consider CT if no improvement -ABG prn if significant hypoxia/lethargy/confusion -Blood culture/blood cult pending 03/23/24: -Bcult NGTD -At baseline 4L -Antibiotic changed to Augmentin due to ucult -sensitivity -continue solumedrol/nebs/INH 03/24: -WBC reviewed and WNL at 8.3 -Lactic acid reviewed at 1.8 WNL Code(s): J96.21 - ACUTE AND CHRONIC RESPIRATORY FAILURE WITH HYPOXIA (2) Pneumonia Current Visit: Yes Status: Acute Assessment & Plan: -see plan above Code(s): J18.9 - PNEUMONIA, UNSPECIFIED ORGANISM (3) UTI (urinary tract infection) Current Visit: No Status: Resolved Assessment & Plan: -UA suspicious for UTI - -Culture growing Proteus - not sensitive to Levaquin- will change to Augmentin due to allergy profile Code(s): N39.0 - URINARY TRACT INFECTION, SITE NOT SPECIFIED (4) Acute on chronic heart failure Current Visit: Yes Status: Acute Assessment & Plan: -BNP 3600 -Echo reviewed with EF noted at 83%- borderline right atrial enlargement/moderate concentric LVH/ hyperdynamic LV function/mild aortic stenosis/ mild MV regurgitation -discontinue lasix 40 BID- pt euvolemic Code(s): I50.9 - HEART FAILURE, UNSPECIFIED (5) Acute encephalopathy Current Visit: Yes Status: Acute Assessment & Plan: -Most likely secondary to ARF/UTI/Pneumonia -CT head negative -continue to monitor 03/23/23: -Resolved - patient now a& o x 4 - requesting home anxiety meds be resumed - will resume Code(s): G93.40 - ENCEPHALOPATHY, UNSPECIFIED (6) COPD exacerbation Current Visit: Yes Status: Acute Assessment & Plan: -see ARF -continue home trelegy if available Code(s): J44.1 - CHRONIC OBSTRUCTIVE PULMONARY DISEASE W (ACUTE) EXACERBATION (7) Type 2 diabetes mellitus Current Visit: Yes Status: Acute Assessment & Plan: Per prior notes, but patient is not on any medications for diabetes per her home medication list. Last hemoglobin A1c in our system was 6.2, done in October 2023. However, she is presenting with Glc 363, which is diagnostic for diabetes. HD SSI -ADA diet A1c 9.51 (8) HTN (hypertension) Current Visit: Yes Status: Acute Assessment & Plan: -stable continue home meds Code(s): I10 - ESSENTIAL (PRIMARY) HYPERTENSION (9) Depression Current Visit: Yes Status: Acute Assessment & Plan: -continue home meds -with panic disorder I spent 35 minutes [id number] with the patient on the day of discharge performing discharge exam, discussing hospital stay and discharge instructions with patient and caregivers, preparation of discharge records, prescriptions & referral forms and addressing any questions/concerns the patient had as documented above. - Vitals & Intake/Output Vital Signs: Vital Signs Temperature 97.9 F 03/24/24 07:43 Pulse Rate 66 03/24/24 07:43 Respiratory Rate 16 03/24/24 07:43 Blood Pressure 139/65 03/24/24 07:43 O2 Sat by Pulse Oximetry 97 03/24/24 07:43 Intake & Output: Intake & Output 03/22/24 03/23/24 03/24/24 03/25/24 11:59 11:59 11:59 11:59 Intake Total 280 1220 1840 Output Total 500 1050 1250 Balance -220 170 590 Weight 93.4 kg 92.9 kg 92.3 kg - Lab Result Diagrams: 03/24/24 05:07 03/24/24 05:07 Lab Results-Last 24 Hrs: Lab Results-Last 24 Hours 03/23/24 03/23/24 03/24/24 Range/Units 16:30 20:41 04:40 WBC (3.98-10.04) x10^3/uL RBC (3.93-5.22) x10^6/uL Hgb (11.2-15.7) g/dL Hct (34.1-44.9) % MCV (79.4-94.8) fL MCH (25.6-32.2) pg MCHC (32.2-35.5) g/dL RDW (11.7-14.4) % Plt Count (182-369) x10^3/uL MPV (9.4-12.3) fL Segmented Neutrophils (34.0-71.1) % Lymphocytes (Manual) (19.3-51.7) % Monocytes (Manual) (4.7-12.5) % Eosinophils (Manual) (0.7-5.8) % Basophils (Manual) (0.1-1.2) % Metamyelocytes % Myelocytes % Platelet Estimate (NORMAL) RBC Morphology Anisocytosis Sodium (135-145) mmol/L Potassium (3.5-5.1) mmol/L Chloride (98-107) mmol/L Carbon Dioxide (22-30) mmol/L Anion Gap (5-15) MEQ/L BUN (7-17) mg/dL Creatinine (0.52-1.04) mg/dL Estimated GFR ML/MIN Glucose (74-106) mg/dL POC Glucometer 326 H 328 H (74 to 106) mg/dL Lactic Acid 1.8 (0.4-2.0) Calcium (8.4-10.2) mg/dL Total Bilirubin (0.2-1.3) mg/dL AST (14-36) U/L ALT (0-35) U/L Alkaline Phosphatase (38-126) U/L Serum Total Protein (6.3-8.2) g/dL Albumin (3.5-5.0) g/dL 03/24/24 03/24/24 03/24/24 Range/Units 05:07 05:07 07:34 WBC 8.3 (3.98-10.04) x10^3/uL RBC 3.88 L (3.93-5.22) x10^6/uL Hgb 9.9 L (11.2-15.7) g/dL Hct 33.4 L (34.1-44.9) % MCV 86.1 (79.4-94.8) fL MCH 25.5 L (25.6-32.2) pg MCHC 29.6 L (32.2-35.5) g/dL RDW 22.6 H (11.7-14.4) % Plt Count 255 (182-369) x10^3/uL MPV 9.9 (9.4-12.3) fL Segmented Neutrophils 85 H (34.0-71.1) % Lymphocytes (Manual) 9 L (19.3-51.7) % Monocytes (Manual) 1 L (4.7-12.5) % Eosinophils (Manual) 1 (0.7-5.8) % Basophils (Manual) 1 (0.1-1.2) % Metamyelocytes 2 % Myelocytes 1 % Platelet Estimate NORMAL (NORMAL) RBC Morphology ABNORMAL Anisocytosis 1+ Sodium 133 L (135-145) mmol/L Potassium 6.0 H* D (3.5-5.1) mmol/L Chloride 96 L (98-107) mmol/L Carbon Dioxide 34 H (22-30) mmol/L Anion Gap 9.7 (5-15) MEQ/L BUN 27 H (7-17) mg/dL Creatinine 0.99 (0.52-1.04) mg/dL Estimated GFR 64.5 ML/MIN Glucose 271 H (74-106) mg/dL POC Glucometer 219 H (74 to 106) mg/dL Lactic Acid (0.4-2.0) Calcium 8.8 (8.4-10.2) mg/dL Total Bilirubin 0.40 (0.2-1.3) mg/dL AST 28 (14-36) U/L ALT 23 (0-35) U/L Alkaline Phosphatase 114 (38-126) U/L Serum Total Protein 6.9 (6.3-8.2) g/dL Albumin 3.8 (3.5-5.0) g/dL 03/24/24 Range/Units 11:32 WBC (3.98-10.04) x10^3/uL RBC (3.93-5.22) x10^6/uL Hgb (11.2-15.7) g/dL Hct (34.1-44.9) % MCV (79.4-94.8) fL MCH (25.6-32.2) pg MCHC (32.2-35.5) g/dL RDW (11.7-14.4) % Plt Count (182-369) x10^3/uL MPV (9.4-12.3) fL Segmented Neutrophils (34.0-71.1) % Lymphocytes (Manual) (19.3-51.7) % Monocytes (Manual) (4.7-12.5) % Eosinophils (Manual) (0.7-5.8) % Basophils (Manual) (0.1-1.2) % Metamyelocytes % Myelocytes % Platelet Estimate (NORMAL) RBC Morphology Anisocytosis Sodium (135-145) mmol/L Potassium (3.5-5.1) mmol/L Chloride (98-107) mmol/L Carbon Dioxide (22-30) mmol/L Anion Gap (5-15) MEQ/L BUN (7-17) mg/dL Creatinine (0.52-1.04) mg/dL Estimated GFR ML/MIN Glucose (74-106) mg/dL POC Glucometer 194 H (74 to 106) mg/dL Lactic Acid (0.4-2.0) Calcium (8.4-10.2) mg/dL Total Bilirubin (0.2-1.3) mg/dL AST (14-36) U/L ALT (0-35) U/L Alkaline Phosphatase (38-126) U/L Serum Total Protein (6.3-8.2) g/dL Albumin (3.5-5.0) g/dL Micro Results-Entire Visit: Microbiology 03/21/24 18:22 Blood Culture - Preliminary Blood 03/21/24 18:16 Blood Culture - Preliminary Blood 03/21/24 20:27 Urine Culture - Final Urine, Catheterized Proteus Mirabilis Accuchecks Date 03/24/24 Date 03/23/24 Date 03/23/24 Time 07:43 Time 21:30 Time 16:40 - Procedures and Test Procedures and Tests throughout Hospitalization: Therapy Orders & Screens 03/21/24 17:42 Respiratory Therapy Assessment DAILY Comment: 03/21/24 23:32 Oxygen Nasal Cannula 4 lpm Comment: Respiratory Therapy Consult ONCE Comment: Reason For Exam: 03/22/24 00:12 RT Screen per Nursing Assess ONCE Comment: Protocol Order Physician Instructions: Greater than 3 points order RT Admission Screen Reason For Exam: Triggered on Admission Diagnosis: BILATERAL PNEUMONIA, CHF, HYPOXIA Diagnosis: BILATERAL PNEUMONIA, CHF, HYPOXIA Pneumonia: Yes Home O2: Yes Asthma: No CHF: Yes Home CPAP/BIPAP: No Home Nebs/MDI: Yes Total Points: 16 ST Screen per Nursing Assess ONCE Comment: Protocol Order Physician Instructions: Greater than [address] Admission Screening Reason For Exam: Triggered on Admission Diagnosis: BILATERAL PNEUMONIA, CHF, HYPOXIA CVA/Dysphagia/Aphasia: No Cognitive Deficits: No Dehydration/Nutrition Deficit: No Reflux: No Oral-Motor Difficulties: No Pneumonia: Yes Senior Care Resident: No Total Points: 5 03/22/24 11:37 BiPap/CPAP ROUTINE Comment: Diagnosis: confusion Discharge Exam General Appearance: no apparent distress Neurologic Exam: alert, oriented x 3, cooperative Eye Exam: PERRL Ears, Nose, Throat Exam: normal ENT inspection Neck Exam: normal inspection Respiratory Exam: diminished breath sounds Cardiovascular Exam: regular rate/rhythm, normal heart sounds Gastrointestinal/Abdomen Exam: soft, normal bowel sounds Pelvic Exam: deferred Rectal Exam: deferred Back Exam: normal inspection Extremity Exam: normal inspection Skin Exam: normal color Final Diagnosis/Problem List - Final Discharge Diagnosis/Problem (1) Acute and chronic respiratory failure with hypoxia Current Visit: Yes Status: Acute Code(s): J96.21 - ACUTE AND CHRONIC RESPIRATORY FAILURE WITH HYPOXIA (2) Pneumonia Current Visit: Yes Status: Acute Code(s): J18.9 - PNEUMONIA, UNSPECIFIED ORGANISM (3) UTI (urinary tract infection) Current Visit: No Status: Resolved Code(s): N39.0 - URINARY TRACT INFECTION, SITE NOT SPECIFIED (4) Acute on chronic heart failure Current Visit: Yes Status: Acute Code(s): I50.9 - HEART FAILURE, UNSPECIFIED (5) Acute encephalopathy Current Visit: Yes Status: Acute Code(s): G93.40 - ENCEPHALOPATHY, UN SPECIFIED (6) COPD exacerbation Current Visit: Yes Status: Acute Code(s): J44.1 - CHRONIC OBSTRUCTIVE PU LMONARY DISEASE W (ACUTE) EXACERBATION (7) Type 2 diabetes mellitus Current Visit: Yes Status: Acute (8) HTN (hypertension) Current Visit: Yes Status: Acute Code(s): I10 - ESSENTIAL (PRIMARY) HYPERTENSION (9) Depression Current Visit: Yes Status: Acute Code(s): F32.A - DEPRESSION, UNSPECIFIED - Discharge Discharge Date: 03/24/24 Disposition: Home, Self-Care Condition: Stable Prescriptions: New Amox Tr/Potass Clav. 875 mg [Augmentin 875-125 Tablet] 875 mg PO Q8HT 10 Days #30 tablet Prednisone 20 mg [Deltasone 20 mg] 20 mg PO BID 5 Days #10 tablet Albuterol/Ipratropium 3ml Neb* [DUONEB 0.5-3 MG/3 ml Neb] 3 ml IH Q4HPRN PRN PRN Reason: shortness of breath/wheezing Insulin Lispro [Humalog] See Rx Instructions .ROUTE .COMPLEX 30 Days #1800 units Insulin Glargine [Lantus Insulin] 20 unit SQ QAM unit PANTOPRAZOLE 40 mg Tablet [Protonix 40MG Tablet] 40 mg PO DAILY tablet Albuterol 2.5 mg/3 ml Neb [Proventil 2.5 mg/3 ml Neb] 2.5 mg IH Q4HPRN PRN PRN Reason: Shortness Of Breath/Wheezing Continue ALPRAZolam 0.25 MG [xanAX 0.25 MG] 0.25 mg PO TID Carvedilol [Coreg ] 6.25 mg PO BID Losartan Potassium 25 mg PO DAILY Aripiprazole 10 mg [Abilify 10 MG] 10 mg PO DAILY Albuterol 2.5 mg/3 ml Neb [Proventil 2.5 mg/3 ml Neb] 1 neb IH Q4HPRN PRN PRN Reason: Shortness Of Breath/Wheezing Pregabalin [Lyrica] 300 mg PO BID Carbamazepine 200 mg [Tegretol 200 MG] 200 mg PO BID Tiotropium Dysart Inhaler [Spiriva 18 Mcg/Cap Inhaler] 1 puff IH DAILY Levothyroxine Sodium [Synthroid] 125 mcg PO DAILY Duloxetine HCl [Cymbalta] 120 mg PO DAILY Discontinued Prednisone 20 mg [Deltasone 20 mg] 20 mg PO DAILY Potassium Chloride 40 meq PO QID Additional Instructions: RESIDENTIAL ORDERS: ADMIT TO SENIOR CARE CARE [address] ADA DIET ACHS ACCU CHECKS SSI lispr - high dose OXYGEN AT 4L/NC PATIENT HAD SLEEP STUDY DONE- PLEASE ARRANGE FOR CPAP AT FACILITY AND FOR WHEN PATIENT DISCHARGES HOME PT/OT EVAL AND TREAT SEE ATTACHED MED LIST Follow up with: NADIA SHEFFIELD FNP [Primary Care Provider] -
[2024-03-24 12:39] VITALS: BP 111/56; PULSE 74; TEMP 97.8; O2SAT 95
[2024-03-24 12:39] LABS: ANION GAP 8.3 MEQ/L (5-15); Calcium 8.6 mg/dL (8.4-10.2); Creatinine 1 0.91 mg/dL (0.52-1.04); EST GLOMERULAR FILTRATION RATE 71.3 ML/MIN; Potassium 4.7 mmol/L (3.5-5.1)
== END 2024-03-24 13:20 | DRG 189 ==
LOC: ED 17:21 → MED SURG 23:31
PROVIDERS: ADMIT Internal Medicine; ATTEND Internal Medicine
DX: J96.21 Acute and chronic respiratory failure with hypoxia (principal); J18.9 Pneumonia, unspecified organism; N39.0 Urinary tract infection, site not specified; G93.40 Encephalopathy, unspecified; J44.1 Chronic obstructive pulmonary disease with (acute) exacerbation; I11.0 Hypertensive heart disease with heart failure; I50.9 Heart failure, unspecified; E11.9 Type 2 diabetes mellitus without complications; F32.A Depression, unspecified; E03.9 Hypothyroidism, unspecified; Z79.899 Other long term (current) drug therapy; Z99.81 Dependence on supplemental oxygen
CPT/HCPCS: 0241U; 36415; 36600; 70450; 71045; 80048; 80053; 81001; 82140; 82375; 82803; 82947; 83036; 83605; 83735; 83880; 84484; 85025; 87040; 87070; 87077; 87086; 87186; 93005; 93306; 94002; 94640; 94760; 96365; 96374; 99291; Q3014; 96375; 99285; J1650; J1817; J1940; J1956; J2919; A9270-GY

== ENCOUNTER 2024-06-26 21:47 | Inpatient (IN) | payer MEDICARE, OTHER ==
--- NOTE | 2024-06-26 21:59 | ERPHSYRPT ---
- History of Present Illness Time Seen by Provider: 06/26/24 21:59 Source: patient, EMS, old records Exam Limitations: clinical condition Physician History: This is a 63-year-old morbidly obese white female patient of Dr. Sheffield and is a resident at local snf and arrives by the paramedics with the complaint of shortness of breath, hypoxia and altered mental status. Patient arrives with a fever as well at 101 F. She has a history of COPD and normally wears 4 L of oxygen via nasal cannula. On that oxygen settings she was running 88%. Patient has a history of peripheral neuropathy, CHF and hyperlipidemia. She also has a history of hypertension, hypothyroidism and insulin-dependent diabetes. Timing/Duration: today Activities at Onset: none Severity of Dyspnea-Max: moderate Severity of Dyspnea-Current: moderate Possible Cause: frequent episodes Modifying Factors: Improves With: oxygen Associated Symptoms: ankle swelling (Chronic bilateral), leg swelling (Chronic bilateral), No chest pain/discomfort, No wheezing Allergies/Adverse Reactions: ceftriaxone Allergy (Severe, Verified 06/26/24 21:55) Anaphylactic Reaction gabapentin Allergy (Severe, Verified 06/26/24 21:55) pain cefazedone Allergy (Verified 06/26/24 21:55) hydralazine Allergy (Verified 06/26/24 21:55) Home Medications: ALPRAZolam 0.25 MG [xanAX 0.25 MG] 0.25 mg PO TID 10/28/23 [History] Carvedilol [Coreg ] 6.25 mg PO BID 10/30/23 [History] Albuterol 2.5 mg/3 ml Neb [Proventil 2.5 mg/3 ml Neb] 1 neb IH Q4HPRN PRN 03/21/24 [History] Aripiprazole 10 mg [Abilify 10 MG] 10 mg PO DAILY 03/21/24 [History] Carbamazepine 200 mg [Tegretol 200 MG] 200 mg PO BID 03/21/24 [History] Duloxetine HCl [Cymbalta] 120 mg PO DAILY 03/21/24 [History] Levothyroxine Sodium [Synthroid] 125 mcg PO DAILY 03/21/24 [History] Losartan Potassium 25 mg PO DAILY 03/21/24 [History] Pregabalin [Lyrica] 300 mg PO BID 03/21/24 [History] Tiotropium [place] Inhaler [Spiriva 18 Mcg/Cap Inhaler] 1 puff IH DAILY 03/21/24 [History] Hx Tetanus, Diphtheria Vaccination/Date Given: Yes Hx Influenza Vaccination/Date Given: Yes Hx Pneumococcal Vaccination/Date Given: Yes Travel Risk - International Travel Have you traveled outside of the country in past 3 weeks: No - Emerging Infectious Disease Are you exhibiting symptoms associated with any current EIDs: Yes Symptoms: Shortness of Breath Comment: - - Review of Systems Constitutional: Fever, Lethargy Eyes: No Symptoms Ears, Nose, & Throat: No Symptoms Respiratory: Dyspnea Cardiac: No Symptoms Abdominal/Gastrointestinal: No Symptoms Genitourinary Symptoms: No Symptoms Musculoskeletal: No Symptoms Skin: No Symptoms Neurological: Lethargy Psychological: No Symptoms Endocrine: No Symptoms Hematologic/Lymphatic: No Symptoms Immunological/Allergic: No Symptoms All Other Systems: Reviewed and Negative - Past Medical History Pertinent Past Medical History: Yes Neurological History: Peripheral Neuropathy ENT History: Cataracts Cardiac History: Congestive Heart Failure, High Cholesterol, Hypertension Respiratory History: CHF, COPD, Emphysema, Sleep Apnea, Other Endocrine Medical History: Hypothyroidism Musculoskeletal History: Arthritis GI Medical History: Other History: No Pertinent History Psycho-Social History: Anxiety, Depression Female Reproductive Disorders: No Pertinent History Other Medical History: trigeminal neuralgia, sepsis, hypokalemia, COVID, hypoxemia, b12 deficiency, wounds, hypercarbia, right ankle fracture, left foot fracture, renal cyst, hyponatremia - Past Surgical History Past Surgical History: Yes Neuro Surgical History: No Pertinent History Cardiac: No Pertinent History Respiratory: No Pertinent History Gastrointestinal: Appendectomy Genitourinary: No Pertinent History Musculoskeletal: Orthopedic Surgery Female Surgical History: No Pertinent History Other Surgical History: elbow surgery, skin cancer removed, right foot surgery - 12/27/21 Significant Family History: other (Unable to obtain family history due to patient's mental status.) - Social History Smoking Status: Never smoker How long have you smoked: 30 years Exposure to second hand smoke: No Drug Use: none - Social Determinants of Health Will the patient participate in the screening: Yes Do you worry about a steady place to live?: No In the past 12 months,have you had to go without utilities?: No Transportation Issues: No Has anyone in your support network made you feel unsafe?: No Have you or anyone in your house had to go w/o enough food: No Comment: Currently utilizing [facility] - Nursing Vital Signs Nursing Vital Signs: Initial Vital Signs Pulse Rate 105 H 06/26/24 21:47 Respiratory Rate 17 06/26/24 21:47 Blood Pressure 202/117 06/26/24 21:47 O2 Sat by Pulse Oximetry 96 06/26/24 21:47 - Physical Exam General Appearance: lethargy, obese Eye Exam: PERRL/EOMI, eyes nml inspection Neck Exam: normal inspection, non-tender, supple, full range of motion Respiratory Exam: normal breath sounds, lungs clear, airway intact, No chest tenderness, No respiratory distress Cardiovascular/Chest Exam: tachycardia Abdominal/Gastrointestinal Exam: soft, normal bowel sounds, No tenderness Rectal Exam: not done Extremity Exam: non-tender, normal range of motion, normal inspection Neurologic Exam: other (Lethargic. Not answering questions.) Lymphatic Exam: No adenopathy SpO2 Interpretation: normal O2 Delivery: BiPap - Course Nursing assessment & vital signs reviewed: Yes EKG Interpreted by Me: RATE ([id number]), Sinus Tach, NORMAL AXIS, NORMAL INTERVALS, NORMAL QRS, Other (QTc is 469. No evidence of acute ischemia.) Ordered Tests: Active Orders 24 hr Category Date Time Status Catheter-[place] Galeana STAT Care 06/26/24 22:13 Active EKG-ER Only STAT Care 06/26/24 22:11 Active IV Insertion STAT Care 06/26/24 22:11 Active Pulse Oximetry (ED) STAT Care 06/26/24 22:11 Active CHEST 1 VIEW (PORTABLE) Stat Exams 06/26/24 22:11 Taken ARTERIAL BLOOD GASES Stat Lab 06/26/24 22:00 Completed BLOOD CULTURE Stat Lab 06/26/24 22:42 Received CBC W DIFF Stat Lab 06/26/24 22:30 Completed CMP Stat Lab 06/26/24 22:42 Completed CULTURE,URINE Stat Lab 06/26/24 22:21 Received Lactic Acid Stat Lab 06/26/24 22:00 Completed MAGNESIUM Stat Lab 06/26/24 22:42 Completed NT PRO BNPII Stat Lab 06/26/24 22:42 Completed TROPONIN Q4H Lab 06/26/24 22:42 Completed TROPONIN Q4H Lab 06/27/24 02:15 Ordered TROPONIN Q4H Lab 06/27/24 06:15 Ordered TSH [TSH, 3RD Generation] Stat Lab 06/26/24 22:49 Completed UA W/RFX UR CULTURE Stat Lab 06/26/24 22:21 Completed BiPap/CPAP STAT RT 06/26/24 22:08 Active Medication Summary Generic Name Dose Route Start Last Admin Trade Name Freq PRN Reason Stop Dose Admin Acetaminophen 650 mg 06/26/24 22:55 Acetaminophen 1,000 Mg/100 Ml Ml IV 06/26/24 22:56 STAT ONE Sodium Chloride 1,000 mls @ 100 mls/hr 06/26/24 22:30 06/26/24 22:31 Sodium Chloride 0.9% 1000 Ml IV 07/26/24 22:29 100 mls/hr .Q10H KIKO Administration Levofloxacin/Dextrose 500 mg in 100 mls @ 100 mls/hr 06/26/24 23:27 06/26/24 23:45 Levofloxacin 500mg/100ml D5w IV 06/27/24 00:26 100 mls/hr STAT STA 100 mls/hr Administration Discontinued Medications Generic Name Dose Route Start Last Admin Trade Name Freq PRN Reason Stop Dose Admin Acetaminophen Confirm 06/26/24 22:10 Acetaminophen 325mg Suppository Administered 06/26/24 22:11 Dose 325 mg .ROUTE .STK-MED ONE Acetaminophen 325 mg 06/26/24 22:11 06/26/24 22:17 Acetaminophen 650 Mg Supp.Rect AK 06/26/24 22:12 Not Given STAT ONE Acetaminophen 325 mg 06/26/24 22:15 06/26/24 22:17 Acetaminophen 325mg Suppository AK 06/26/24 22:16 325 mg STAT STA Administration Acetaminophen 650 mg 06/26/24 22:22 Acetaminophen 1,000 Mg/100 Ml Ml IV 06/26/24 22:23 STAT ONE Acetaminophen 750 mg in 75 mls @ 300 mls/hr 06/26/24 22:45 06/26/24 23:25 Ofirmev IV 06/26/24 22:59 Not Given 1HRPRIOR ONE Acetaminophen 1,000 mg in 100 mls @ 400 mls/hr 06/26/24 23:24 06/26/24 23:46 Ofirmev IV 06/26/24 23:38 Infused 1HRPRIOR ONE Infusion Levofloxacin/Dextrose Confirm 06/26/24 23:44 Levofloxacin 500mg/100ml D5w Administered 06/26/24 23:45 Dose 500 mg in 100 mls @ ud IV .STK-MED ONE Lab/Rad Data: Laboratory Result Diagrams 06/26/24 22:30 06/26/24 22:42 Laboratory Results 06/26/24 06/26/24 06/26/24 Range/Units 22:49 22:49 22:42 WBC (3.98-10.04) x10^3/uL RBC (3.93-5.22) x10^6/uL Hgb (11.2-15.7) g/dL Hct (34.1-44.9) % MCV (79.4-94.8) fL MCH (25.6-32.2) pg MCHC (32.2-35.5) g/dL RDW (11.7-14.4) % Plt Count (182-369) x10^3/uL MPV (9.4-12.3) fL Gran % (34.0-71.1) % Immature Gran % (Auto) (0.001-0.429) % Nucleat RBC Rel Count (0.00-0.2) % Eos # (Auto) (0.04-0.36) x10^3/uL Immature Gran # (Auto) (0.001-0.031) x10^3u/L Absolute Lymphs (auto) (1.18-3.74) x10^3/uL Absolute Monos (auto) (0.24-0.86) x10^3/uL Absolute Nucleated RBC (0.00-0.012) x10^3u/L Lymphocytes % (19.3-51.7) % Monocytes % (4.7-12.5) % Eosinophils % (0.7-5.8) % Basophils % (0.1-1.2) % Absolute Granulocytes (1.56-6.13) x10^3/uL Basophils # (0.01-0.08) x10^3/uL Puncture Site pCO2 (35-45) mmHg pO2 (75-100) mmHg Base Excess (-2.0-2.0) O2 Saturation (94-100) g/dF ABG pH (7.35-7.45) ABG HCO3 (22-28) ABG O2 Sat (Measured) (95-100) % Shabbir Test A-a Gradient a/A Ratio Hemoglobin Carboxyhemoglobin (0.0-6.9) % THgb Methemoglobin (1.4-1.5) % Potassium (3.5-5.1) Temperature C POC O2 Flow Rate % Sodium (135-145) mmol/L Chloride (98-107) mmol/L Carbon Dioxide (22-30) mmol/L Anion Gap (5-15) MEQ/L BUN (7-17) mg/dL Creatinine (0.52-1.04) mg/dL Estimated GFR ML/MIN Glucose (74-106) mg/dL Lactic Acid (0.4-2.0) Calcium (8.4-10.2) mg/dL Magnesium (1.6-2.3) mg/dL Total Bilirubin (0.2-1.3) mg/dL AST (14-36) U/L ALT (0-35) U/L Alkaline Phosphatase (38-126) U/L Ammonia (9-30) umol/L Troponin I (0.000-0.033) ng/mL NT-Pro-B Natriuret Pep (<300) pg/mL Serum Total Protein (6.3-8.2) g/dL Albumin (3.5-5.0) g/dL Free T4 0.78 (0.78-2.19) ng/dL TSH 3rd Generation 4.569 (0.470-4.680) mIU/L Urine Color (Yellow) Urine Appearance (Clear) Urine pH (4.6-8.0) Ur Specific [place] (1.005-1.030) Urine Protein (Negative) Urine Glucose (UA) (Negative) mg/dL Urine Ketones (Negative) Urine Blood (Negative) Urine Nitrite (Negative) Urine Bilirubin (Negative) Urine Urobilinogen (0.2) mg/dL Ur Leukocyte Esterase (Negative) U Hyaline Cast (Auto) (0-2) /LPF Urine Microscopic RBC (0-5) /HPF Urine Microscopic WBC (0-5) /HPF Ur Epithelial Cells (None Seen) /HPF Urine Bacteria (None Seen) /HPF Urine Culture Reflexed (NO) Influenza Type A Ag NEGATIVE (NEGATIVE) Influenza Type B Ag NEGATIVE (NEGATIVE) RSV (PCR) NEGATIVE (NEGATIVE) SARS-CoV-2 (PCR) NEGATIVE (NEGATIVE) 06/26/24 06/26/24 06/26/24 Range/Units 22:42 22:42 22:42 WBC (3.98-10.04) x10^3/uL RBC (3.93-5.22) x10^6/uL Hgb (11.2-15.7) g/dL Hct (34.1-44.9) % MCV (79.4-94.8) fL MCH (25.6-32.2) pg MCHC (32.2-35.5) g/dL RDW (11.7-14.4) % Plt Count (182-369) x10^3/uL MPV (9.4-12.3) fL Gran % (34.0-71.1) % Immature Gran % (Auto) (0.001-0.429) % Nucleat RBC Rel Count (0.00-0.2) % Eos # (Auto) (0.04-0.36) x10^3/uL Immature Gran # (Auto) (0.001-0.031) x10^3u/L Absolute Lymphs (auto) (1.18-3.74) x10^3/uL Absolute Monos (auto) (0.24-0.86) x10^3/uL Absolute Nucleated RBC (0.00-0.012) x10^3u/L Lymphocytes % (19.3-51.7) % Monocytes % (4.7-12.5) % Eosinophils % (0.7-5.8) % Basophils % (0.1-1.2) % Absolute Granulocytes (1.56-6.13) x10^3/uL Basophils # (0.01-0.08) x10^3/uL Puncture Site pCO2 (35-45) mmHg pO2 (75-100) mmHg Base Excess (-2.0-2.0) O2 Saturation (94-100) g/dF ABG pH (7.35-7.45) ABG HCO3 (22-28) ABG O2 Sat (Measured) (95-100) % Shabbir Test A-a Gradient a/A Ratio Hemoglobin Carboxyhemoglobin (0.0-6.9) % THgb Methemoglobin (1.4-1.5) % Potassium 3.8 (3.5-5.1) Temperature C POC O2 Flow Rate % Sodium 137 (135-145) mmol/L Chloride 90 L (98-107) mmol/L Carbon Dioxide 35 H (22-30) mmol/L Anion Gap 16.5 H (5-15) MEQ/L BUN 24 H (7-17) mg/dL Creatinine 0.93 (0.52-1.04) mg/dL Estimated GFR 69.5 ML/MIN Glucose 244 H (74-106) mg/dL Lactic Acid (0.4-2.0) Calcium 8.8 (8.4-10.2) mg/dL Magnesium 1.8 (1.6-2.3) mg/dL Total Bilirubin 0.50 (0.2-1.3) mg/dL AST 42 H (14-36) U/L ALT 41 H (0-35) U/L Alkaline Phosphatase 125 (38-126) U/L Ammonia < 9 L (9-30) umol/L Troponin I 0.017 (0.000-0.033) ng/mL NT-Pro-B Natriuret Pep 163 (<300) pg/mL Serum Total Protein 7.7 (6.3-8.2) g/dL Albumin 4.3 (3.5-5.0) g/dL Free T4 (0.78-2.19) ng/dL TSH 3rd Generation (0.470-4.680) mIU/L Urine Color (Yellow) Urine Appearance (Clear) Urine pH (4.6-8.0) Ur Specific [place] (1.005-1.030) Urine Protein (Negative) Urine Glucose (UA) (Negative) mg/dL Urine Ketones (Negative) Urine Blood (Negative) Urine Nitrite (Negative) Urine Bilirubin (Negative) Urine Urobilinogen (0.2) mg/dL Ur Leukocyte Esterase (Negative) U Hyaline Cast (Auto) (0-2) /LPF Urine Microscopic RBC (0-5) /HPF Urine Microscopic WBC (0-5) /HPF Ur Epithelial Cells (None Seen) /HPF Urine Bacteria (None Seen) /HPF Urine Culture Reflexed (NO) Influenza Type A Ag (NEGATIVE) Influenza Type B Ag (NEGATIVE) RSV (PCR) (NEGATIVE) SARS-CoV-2 (PCR) (NEGATIVE) 06/26/24 06/26/24 06/26/24 Range/Units 22:30 22:21 22:00 WBC 16.8 H (3.98-10.04) x10^3/uL RBC 4.15 (3.93-5.22) x10^6/uL Hgb 12.2 (11.2-15.7) g/dL Hct 37.6 (34.1-44.9) % MCV 90.6 (79.4-94.8) fL MCH 29.4 (25.6-32.2) pg MCHC 32.4 (32.2-35.5) g/dL RDW 17.2 H (11.7-14.4) % Plt Count 175 L (182-369) x10^3/uL MPV 9.6 (9.4-12.3) fL Gran % 88.3 H (34.0-71.1) % Immature Gran % (Auto) 2.0 H (0.001-0.429) % Nucleat RBC Rel Count 0.0 (0.00-0.2) % Eos # (Auto) 0.05 (0.04-0.36) x10^3/uL Immature Gran # (Auto) 0.34 H (0.001-0.031) x10^3u/L Absolute Lymphs (auto) 0.79 L (1.18-3.74) x10^3/uL Absolute Monos (auto) 0.74 (0.24-0.86) x10^3/uL Absolute Nucleated RBC 0.00 (0.00-0.012) x10^3u/L Lymphocytes % 4.7 L (19.3-51.7) % Monocytes % 4.4 L (4.7-12.5) % Eosinophils % 0.3 L (0.7-5.8) % Basophils % 0.3 (0.1-1.2) % Absolute Granulocytes 14.87 H (1.56-6.13) x10^3/uL Basophils # 0.05 (0.01-0.08) x10^3/uL Puncture Site RIGHT BRACHIAL pCO2 54 H (35-45) mmHg pO2 114 H (75-100) mmHg Base Excess 19.4 H (-2.0-2.0) O2 Saturation 97.1 (94-100) g/dF ABG pH 7.53 H (7.35-7.45) ABG HCO3 45.1 H* (22-28) ABG O2 Sat (Measured) 99.3 (95-100) % Shabbir Test NOT APPLICABLE A-a Gradient 175 a/A Ratio 0.39 Hemoglobin 12.8 Carboxyhemoglobin 1.2 (0.0-6.9) % THgb Methemoglobin 1.0 L (1.4-1.5) % Potassium 4.0 (3.5-5.1) Temperature 37.0 C POC O2 Flow Rate 50 % Sodium (135-145) mmol/L Chloride (98-107) mmol/L Carbon Dioxide (22-30) mmol/L Anion Gap (5-15) MEQ/L BUN (7-17) mg/dL Creatinine (0.52-1.04) mg/dL Estimated GFR ML/MIN Glucose (74-106) mg/dL Lactic Acid (0.4-2.0) Calcium (8.4-10.2) mg/dL Magnesium (1.6-2.3) mg/dL Total Bilirubin (0.2-1.3) mg/dL AST (14-36) U/L ALT (0-35) U/L Alkaline Phosphatase (38-126) U/L Ammonia (9-30) umol/L Troponin I (0.000-0.033) ng/mL NT-Pro-B Natriuret Pep (<300) pg/mL Serum Total Protein (6.3-8.2) g/dL Albumin (3.5-5.0) g/dL Free T4 (0.78-2.19) ng/dL TSH 3rd Generation (0.470-4.680) mIU/L Urine Color Yellow (Yellow) Urine Appearance Clear (Clear) Urine pH 6.5 (4.6-8.0) Ur Specific [place] 1.010 (1.005-1.030) Urine Protein Negative (Negative) Urine Glucose (UA) 250 A (Negative) mg/dL Urine Ketones Negative (Negative) Urine Blood Negative (Negative) Urine Nitrite Negative (Negative) Urine Bilirubin Negative (Negative) Urine Urobilinogen 0.2 (0.2) mg/dL Ur Leukocyte Esterase Negative (Negative) U Hyaline Cast (Auto) NONE SEEN (0-2) /LPF Urine Microscopic RBC 0-2 (0-5) /HPF Urine Microscopic WBC 0-2 (0-5) /HPF Ur Epithelial Cells None Seen (None Seen) /HPF Urine Bacteria None Seen (None Seen) /HPF Urine Culture Reflexed ORDERED SEPARATELY (NO) Influenza Type A Ag (NEGATIVE) Influenza Type B Ag (NEGATIVE) RSV (PCR) (NEGATIVE) SARS-CoV-2 (PCR) (NEGATIVE) 06/26/24 Range/Units 22:00 WBC (3.98-10.04) x10^3/uL RBC (3.93-5.22) x10^6/uL Hgb (11.2-15.7) g/dL Hct (34.1-44.9) % MCV (79.4-94.8) fL MCH (25.6-32.2) pg MCHC (32.2-35.5) g/dL RDW (11.7-14.4) % Plt Count (182-369) x10^3/uL MPV (9.4-12.3) fL Gran % (34.0-71.1) % Immature Gran % (Auto) (0.001-0.429) % Nucleat RBC Rel Count (0.00-0.2) % Eos # (Auto) (0.04-0.36) x10^3/uL Immature Gran # (Auto) (0.001-0.031) x10^3u/L Absolute Lymphs (auto) (1.18-3.74) x10^3/uL Absolute Monos (auto) (0.24-0.86) x10^3/uL Absolute Nucleated RBC (0.00-0.012) x10^3u/L Lymphocytes % (19.3-51.7) % Monocytes % (4.7-12.5) % Eosinophils % (0.7-5.8) % Basophils % (0.1-1.2) % Absolute Granulocytes (1.56-6.13) x10^3/uL Basophils # (0.01-0.08) x10^3/uL Puncture Site pCO2 (35-45) mmHg pO2 (75-100) mmHg Base Excess (-2.0-2.0) O2 Saturation (94-100) g/dF ABG pH (7.35-7.45) ABG HCO3 (22-28) ABG O2 Sat (Measured) (95-100) % Shabbir Test A-a Gradient a/A Ratio Hemoglobin Carboxyhemoglobin (0.0-6.9) % THgb Methemoglobin (1.4-1.5) % Potassium (3.5-5.1) Temperature C POC O2 Flow Rate % Sodium (135-145) mmol/L Chloride (98-107) mmol/L Carbon Dioxide (22-30) mmol/L Anion Gap (5-15) MEQ/L BUN (7-17) mg/dL Creatinine (0.52-1.04) mg/dL Estimated GFR ML/MIN Glucose (74-106) mg/dL Lactic Acid 3.1 H (0.4-2.0) Calcium (8.4-10.2) mg/dL Magnesium (1.6-2.3) mg/dL Total Bilirubin (0.2-1.3) mg/dL AST (14-36) U/L ALT (0-35) U/L Alkaline Phosphatase (38-126) U/L Ammonia (9-30) umol/L Troponin I (0.000-0.033) ng/mL NT-Pro-B Natriuret Pep (<300) pg/mL Serum Total Protein (6.3-8.2) g/dL Albumin (3.5-5.0) g/dL Free T4 (0.78-2.19) ng/dL TSH 3rd Generation (0.470-4.680) mIU/L Urine Color (Yellow) Urine Appearance (Clear) Urine pH (4.6-8.0) Ur Specific [place] (1.005-1.030) Urine Protein (Negative) Urine Glucose (UA) (Negative) mg/dL Urine Ketones (Negative) Urine Blood (Negative) Urine Nitrite (Negative) Urine Bilirubin (Negative) Urine Urobilinogen (0.2) mg/dL Ur Leukocyte Esterase (Negative) U Hyaline Cast (Auto) (0-2) /LPF Urine Microscopic RBC (0-5) /HPF Urine Microscopic WBC (0-5) /HPF Ur Epithelial Cells (None Seen) /HPF Urine Bacteria (None Seen) /HPF Urine Culture Reflexed (NO) Influenza Type A Ag (NEGATIVE) Influenza Type B Ag (NEGATIVE) RSV (PCR) (NEGATIVE) SARS-CoV-2 (PCR) (NEGATIVE) - Progress Progress: improved, re-examined Air Movement: fair Progress Note: 06/26/24 22:33 My medical decision making and the assignment of high complexity of this patient to the patient's medical condition is based on review of the patient's past medical history, review of the patient's medication list, review the patient drug allergy list, history present illness and physical findings on examination. In addition the patient comes in distress. The workup in this patient includes placement of a intravenous line, infusion of crystalloid solution, placement of a rectal Tylenol suppository, infusion of intravenous Tylenol, CBC, CMP, ammonia level, free T4, TSH, magnesium level, CBC, CMP, placement of Galeana catheter, urinalysis, chest x-ray, blood cultures viral swabs, ABG. Differential diagnosis includes but is not limited to pneumonia, upper respiratory infection, urinary tract infection dehydration, electrolyte abnormalities, myocardial infarction, 06/26/24 23:51 I interpreted the patient's laboratory data results. Based on the laboratory data results, the patient has leukocytosis with a left shift, elevated lactic acid level, slightly elevated anion gap and a elevated CO2. Her urinalysis does not show infection. I interpreted the preliminary report of the chest x-ray which appears to show bibasilar haziness/early infiltrate. I spoke with telehospitalist, Dr. Chester. I reviewed the patient history, presenting complaint, physical findings on examination and workup results. We will admit this patient into the hospital and have respiratory therapy follow this patient, provide the patient with intravenous antibiotics and low rate IV fluids as well as breathing treatments. Blood Culture(s) Obtained: Yes Antibiotics given: Yes Counseled pt/family regarding: lab results, diagnosis, rad results Medical Desision Making - Independent Historian Additional History obtained from: [employer]/EMT - Discussion of managment Reviewed:: Test results Agreed on:: Treatment plan, decision to admit Will see patient: in hospital - Diagnostic Testing Diagnostic test were ordered, analyzed, and reviewed by me: Yes Radiological Interpretation: Interpreted by me - Risk of complications The pt has a high risk of morbidity or mortality based on: Decision regarding hospitilization or escalation of hosp level of care - Departure Departure Disposition: In-patient Admission Clinical Impression: Hypoxia, Fever, Bilateral pneumonia, Leukocytosis Condition: Fair Critical Care Time: Yes Critical Care Time(excluding separately billable procedures): Critical 30-74 mins (50) Referrals: NADIA SHEFFIELD FNP [Primary Care Provider, UNKNOWN] - Follow up/PCP as directed
[2024-06-26] MEDS ORDERED: FEVERALL 325 MG ONE (22:10)
[2024-06-26 22:12] LABS: A-aADO2 175; ABG HEMOGLOBIN 12.8; ARTERIAL BLD GAS O2 SATURATION 99.3 % (95-100); ARTERIAL BLOOD GAS BASE EXCESS 19.4 (-2.0-2.0); ARTERIAL BLOOD GAS FIO2 50 %; ARTERIAL BLOOD GAS PCO2 54 mmHg (35-45); ARTERIAL BLOOD GAS PO2 114 mmHg (75-100); ARTERIAL BLOOD GAS pH 7.53 (7.35-7.45); CARBOXYHEMOGLOBIN 1.2 % THgb (0.0-6.9); HCO3- 45.1 (22-28); HGB O2 SAT 97.1 g/dF (94-100); paO2 pAO1 0.39
[2024-06-26 22:13] LABS: ABG SITE RIGHT BRACHIAL
[2024-06-26] MEDS: FEVERALL 650 MG PR ONE (22:17)
[2024-06-26] MEDS: FEVERALL 325 MG PR STA (22:17)
[2024-06-26] MEDS ORDERED: OFIRMEV IV ONE ×2 (22:22→22:55)
[2024-06-26] MEDS ORDERED: Sodium Chloride 0.9% 1000 ML 1,000 ML ONE (22:29)
[2024-06-26] MEDS: Sodium Chloride 0.9% 1000 ML 1,000 ML IV SCH (22:31)
[2024-06-26 22:42] LABS: Absolute Neutrophil Ct (ANC) 14.87 x10^3/uL (1.56-6.13); BASOPHIL % 0.3 % (0.1-1.2); Basophil (Absolute #) 0.05 x10^3/uL (0.01-0.08); Eosinophil % 0.3 % (0.7-5.8); Eosinophil (Absolute #) 0.05 x10^3/uL (0.04-0.36); Hematocrit 37.6 % (34.1-44.9); Hemoglobin 12.2 g/dL (11.2-15.7); IMMATURE GRAN # 0.34 x10^3u/L (0.001-0.031); Lymphocyte (Absolute #) 0.79 x10^3/uL (1.18-3.74); Lymphocytes % 4.7 % (19.3-51.7); Mean Cell Volume 90.6 fL (79.4-94.8); Mean Corpuscular Hemoglobin 29.4 pg (25.6-32.2); Mean Corpuscular Hgb Concent. 32.4 g/dL (32.2-35.5); Mean Platelet Volume 9.6 fL (9.4-12.3); Monocyte (Absolute #) 0.74 x10^3/uL (0.24-0.86); Monocytes % 4.4 % (4.7-12.5); Neutrophil % 88.3 % (34.0-71.1); Platelet Count 175 x10^3/uL (182-369); Red Blood Count 4.15 x10^6/uL (3.93-5.22); Red Cell Distribution Width 17.2 % (11.7-14.4); White Blood Count 16.8 x10^3/uL (3.98-10.04)
[2024-06-26 22:49] LABS: Appearance Clear (Clear); Bacteria None Seen /HPF (None Seen); Bilirubin Negative (Negative); Blood Negative (Negative); Epithelial Cells None Seen /HPF (None Seen); Glucose, Urine 250 mg/dL (Negative); Hyaline Casts NONE SEEN /LPF (0-2); Ketones Negative (Negative); Leukocyte Esterase Negative (Negative); Nitrite Negative (Negative); Ph 6.5 (4.6-8.0); Protein,Urine Dip Negative (Negative); RBC 0-2 /HPF (0-5); Urobilinogen 0.2 mg/dL (0.2); WBC 0-2 /HPF (0-5)
[2024-06-26 22:57] LABS: ALBUMIN 4.3 g/dL (3.5-5.0); ANION GAP 16.5 MEQ/L (5-15); BILIRUBIN,TOTAL 0.5 mg/dL (0.2-1.3); Calcium 8.8 mg/dL (8.4-10.2); Creatinine 1 0.93 mg/dL (0.52-1.04); EST GLOMERULAR FILTRATION RATE 69.5 ML/MIN; MAGNESIUM 1.8 mg/dL (1.6-2.3); Potassium 3.8 mmol/L (3.5-5.1); Total Protein 7.7 g/dL (6.3-8.2)
[2024-06-26 23:09] LABS: TROPONIN 0.017 ng/mL (0.000-0.033)
[2024-06-26] MEDS ORDERED: OFIRMEV 100 ML IV ONE (23:22)
[2024-06-26] MEDS: OFIRMEV IV ONE (23:25)
[2024-06-26] MEDS: OFIRMEV 1,000 MG/100 ML ML IV ONE (23:25)
[2024-06-26 23:27] LABS: INFLUENZA A NEGATIVE (NEGATIVE); INFLUENZA B NEGATIVE (NEGATIVE); RESPIRATORY SYNCTIAL VIRUS NEGATIVE (NEGATIVE); SARS-CoV-2 Xpert Express NEGATIVE (NEGATIVE)
[2024-06-26] MEDS ORDERED: Levofloxacin 500MG/100ML D5W 500 MG/100 ML BAG IV ONE (23:44)
[2024-06-26] MEDS: Levofloxacin 500MG/100ML D5W 500 MG/100 ML BAG IV STA (23:45)
[2024-06-27 00:16] LABS: A-aADO2 192; ABG HEMOGLOBIN 12.2; ABG POTASSIUM 3.6 (3.5-5.1); ARTERIAL BLD GAS O2 SATURATION 98.8 % (95-100); ARTERIAL BLOOD GAS BASE EXCESS 14.8 (-2.0-2.0); ARTERIAL BLOOD GAS FIO2 50 %; ARTERIAL BLOOD GAS PCO2 53 mmHg (35-45); ARTERIAL BLOOD GAS PO2 98 mmHg (75-100); ARTERIAL BLOOD GAS pH 7.49 (7.35-7.45); CARBOXYHEMOGLOBIN 1.2 % THgb (0.0-6.9); HCO3- 40.4 (22-28); HGB O2 SAT 96.4 g/dF (94-100); Methhemoglobin 1.2 % (1.4-1.5); paO2 pAO1 0.34
[2024-06-27 00:17] LABS: ABG SITE RIGHT BRACHIAL; BIPAP(E) 8; BIPAP(I) 16
[2024-06-27] MEDS ORDERED: Sodium Chloride 0.9% 1000 ML 1,000 ML ONE (01:08)
--- NOTE | 2024-06-27 03:29 | XRAY ---
CLINICAL HISTORY: lethargy COMPARISON: 03/21/2024 TECHNIQUE: Axial non contrast CT scan of the brain was performed from the skull base to the high parietal region was performed without contrast. One of the following dose reduction techniques were utilized for this exam: Automated exposure control, adjustment of the mA and/or kV according to patient size, use of iterative reconstruction. CT scan performed according to ALARA principles. Automated exposure control used during the exam. FINDINGS: Multiple subcortical and periventricular white matter hypodensities likely represent mild chronic microvascular ischemic changes. The visualized brain parenchyma shows normal appearance. No focal parenchymal abnormalities are demonstrated. Pimentel-white matter differentiation is maintained. Normal CT appearance of the posterior fossa structures namely the cerebellar hemispheres, brainstem and cerebellar peduncles. No intracerebral or extra-axial hematoma. No midline shifts or deformity. Normal size and configuration of the cerebral ventricles Prominent fronto-parietal extra-axial CSF spaces. No definite calvarial fractures. The osseous structures in the skull base are unremarkable. Scanned paranasal sinuses are unremarkable. IMPRESSION: 1. No evidence of acute intracranial hemorrhage. 2. Mild chronic microvascular ischemic changes. 3. Mild senile brain atrophy changes. 4. No significant interval changes compared to prior study, dated on 03/21/2024. 5. Early changes of a stroke may not be detected on a CT scan. If strong clinical suspicion of stroke, then suggest MRI with diffusion-weighted imaging. Electronically Signed by: Estiven Hancock MD. (06/27/2024 03:26:29 EDT)
[2024-06-27] MEDS ORDERED: OFIRMEV 100 ML IV ONE (03:34)
[2024-06-27] MEDS: OFIRMEV 1,000 MG/100 ML ML IV ONE (03:37)
[2024-06-27] MEDS ORDERED: FEVERALL 650 MG PR PRN (04:22)
[2024-06-27] MEDS ORDERED: Zofran 4 MG/2 ML VIAL IV PRN (04:22)
[2024-06-27] MEDS: DUONEB 0.5-3 MG/3 ml Neb IH PRN (05:24)
[2024-06-27] MEDS: VANCOMYCIN 1 GRAM/200 ML BAG 1 GM/200 ML PIGGYBACK IV SCH (05:25)
[2024-06-27] MEDS: Sodium Chloride 0.9% 1000 ML 1,000 ML IV SCH ×2 (05:33→20:21)
--- NOTE | 2024-06-27 05:34 | PCM.HP ---
History of Present Illness - Chief Complaint Chief Complaint: fever Date: 06/27/24 History of Present Illness: 63-year-old woman with history of COPD chronically on 4 L oxygen, HFpEF, DM2, HTN, hypothyroidism, who presents from long term with reported dyspnea and fever. Of note, history is obtained entirely from chart, as patient is unable to answer any questions. She appears to be fairly somnolent. Reportedly, she had an SpO2 of 88% at the long term, and a temperature of 103. In the ED, she had a maximal temperature of 105.3. She was initially placed on BiPAP, but is currently on 6 L oxygen. No other history obtained. - Review of Systems All Other Systems: Unable due to condition Medications & Allergies Home Medications: Home Medication List ALPRAZolam 0.25 MG [xanAX 0.25 MG] 0.25 mg PO TID 06/27/24 [History Confirmed 06/27/24] Albuterol 8 gm Mdi Hfa [Ventolin Hfa MDI] 109 mcg IH Q6H PRN PRN 06/27/24 [History Confirmed 06/27/24] Allopurinol 100 mg [Zyloprim 100 mg] 100 mg PO BID 06/27/24 [History Confirmed 06/27/24] Aripiprazole 10 mg [Abilify 10 MG] 10 mg PO HS 06/27/24 [History Confirmed 06/27/24] Carvedilol [Coreg ] 6.25 mg PO BID 06/27/24 [History Confirmed 06/27/24] Cyanocobalamin (Vitamin B-12) [B-12] 1,000 mcg PO DAILY 06/27/24 [History Confirmed 06/27/24] Duloxetine HCl 120 mg PO DAILY 06/27/24 [History Confirmed 06/27/24] Ergocalciferol (Vitamin D2) [Vitamin D2] 1,250 mcg PO WEEKLY 06/27/24 [History Confirmed 06/27/24] Ferrous Sulfate 325 mg [Feosol 325 mg] 325 mg PO DAILY 06/27/24 [History Confirmed 06/27/24] Fluticasone/Umeclidin/Vilanter [Trelegy Ellipta 200-62.5-25] 1 each IH DAILY 06/27/24 [History Confirmed 06/27/24] Insulin Glargine [Lantus Insulin] 30 units SQ QAM 06/27/24 [History Confirmed 06/27/24] Insulin Lispro See Rx Instructions .ROUTE .COMPLEX 06/27/24 [History Confirmed 06/27/24] Ipratropium/Albuterol Sulfate [Iprat-Albut 0.5-3(2.5) mg/3 ml] 3 ml IH Q4H PRN PRN 06/27/24 [History Confirmed 06/27/24] Levothyroxine Sodium 125 mcg PO DAILY 06/27/24 [History Confirmed 06/27/24] Losartan Potassium 25 mg PO EVENING MEAL 06/27/24 [History Confirmed 06/27/24] Potassium Chloride Tab* [Klor Con] 40 meq PO QID 06/27/24 [History Confirmed 06/27/24] Pregabalin 300 mg PO BID 06/27/24 [History Confirmed 06/27/24] Tiotropium O'Brien Inhaler [Spiriva 18 Mcg/Cap Inhaler] 1 puff IH DAILY [History Confirmed 06/27/24] Torsemide 50 mg PO EVENING MEAL 06/27/24 [History Confirmed 06/27/24] Torsemide 100 mg PO DAILY 06/27/24 [History Confirmed 06/27/24] Trazodone HCl 200 mg PO HS 06/27/24 [History Confirmed 06/27/24] carBAMazepine [Tegretol] 200 mg PO BID 06/27/24 [History Confirmed 06/27/24] predniSONE [Prednisone] 20 mg PO DAILY 06/27/24 [History Confirmed 06/27/24] Allergies/Adverse Reactions: Allergies Allergy/AdvReac Type Severity Reaction Status Date / Time ceftriaxone Allergy Severe Anaphylactic Verified 06/26/24 21:55 Reaction gabapentin Allergy Severe pain Verified 06/26/24 21:55 cefazedone Allergy Verified 06/26/24 21:55 hydralazine Allergy Verified 06/26/24 21:55 - Past Medical History Past Medical History: Yes Neurological History: Peripheral Neuropathy ENT History: Cataracts Cardiac History: Congestive Heart Failure, High Cholesterol, Hypertension Respiratory History: CHF, COPD, Emphysema, Sleep Apnea, Other Endocrine Medical History: Hypothyroidism Musculoskelatal History: Arthritis GI Medical History: Other History: No Pertinent History Pyscho-Social History: Anxiety, Depression Reproductive Disorders: No Pertinent History Comment: trigeminal neuralgia, sepsis, hypokalemia, COVID, hypoxemia, b12 deficiency, wounds, hypercarbia, right ankle fracture, left foot fracture, renal cyst, hyponatremia - Past Surgical History Past Surgical History: Yes Neuro Surgical History: No Pertinent History Cardiac History: No Pertinent History Respiratory Surgery: No Pertinent History GI Surgical History: Appendectomy Genitourinary Surgical Hx: No Pertinent History Musculskeletal Surgical Hx: Orthopedic Surgery Female Surgical History: No Pertinent History Other Surgical History: elbow surgery, skin cancer removed, right foot surgery - 12/27/21 Significant Family History: other (Unable to obtain family history due to patient's mental status.) - Social History Smoking Status: Never smoker How long have you smoked: 30 years Exposure to second hand smoke: No Alcohol: None Drug Use: none - Social Determinants of Health Will the patient participate in the screening: Unable to obtain Do you worry about a steady place to live?: No Do you have any problems with any of the following?: No known problems In the past 12 months,have you had to go without utilities?: No Have you or anyone in your house had to go without enough: No Transportation Issues: No Has anyone in your support network made you feel unsafe?: No Does the patient want assistance with any of the above?: No Comment: Currently utilizing [facility] - Physical Exam Vital Signs: Vital Signs - 24 hr Temp Pulse Resp BP BP Pulse Ox 06/27/24 05:25 84 18 96 06/27/24 04:29 101.6 F 86 18 99/50 94 L 06/27/24 04:22 97 06/27/24 03:30 91 H 19 119/95 98 06/27/24 03:00 86 15 140/64 98 06/27/24 02:31 84 18 114/64 100 06/27/24 02:28 87 16 118/69 100 06/27/24 02:00 84 12 108/50 100 06/27/24 01:30 84 15 111/55 100 06/27/24 01:00 86 15 107/51 100 06/27/24 00:30 86 16 99/48 100 06/27/24 00:23 92 H 17 95/46 100 06/27/24 00:04 98 H 19 95/47 100 06/27/24 00:00 99 H 25 H 87/46 06/26/24 23:31 97 H 19 155/84 100 06/26/24 23:01 100 H 19 180/88 96 06/26/24 22:59 104 H 21 184/91 99 06/26/24 22:57 105.3 F 103 H 21 184/91 95 06/26/24 22:50 106 H 18 06/26/24 22:40 105 H 20 06/26/24 22:33 103 H 20 06/26/24 22:18 100 06/26/24 22:01 105 H 20 176/97 97 06/26/24 21:56 103.6 F 107 H 23 202/117 96 06/26/24 21:47 105 H 17 202/117 96 Physical Exam GEN: Lying in bed in no acute distress HENT: Normocephalic, atraumatic. Moist mucous membranes. EYES: Normal inspection, anicteric sclera, extraocular movements intact. NECK: Supple, full range of motion CV: Regular rate and rhythm, no murmurs, no gallops. No JVD or edema. PULM: Clear to auscultation bilaterally, no work of breathing. On 6 L oxygen by nasal cannula ABD: Nondistended, nontender. MSK: No joint effusions, full range of motion SKIN: Confluent area of erythema and warmth over the right anterior nice. Left distal thigh has a 2 x 2 cm wound with minimal surrounding erythema. NEURO: Face symmetric, appears to be moving all extremities well, but unable to fully assess as patient is unable to follow commands PSYCH: Somnolent, not following commands. Once or twice seemed to look up spontaneously, but not answering any questions. Wound Assessment: Skin/Wound Assessment Wound/Incision Assessment Start: 06/27/24 04:48 Text: Status: Active Freq: Q6H Protocol: Document 06/27/24 04:48 FRANCES (Rec: 06/27/24 05:13 AK [id number]) Wound/Incision Assessment Left Lower Thigh Wound Assessment Admission Wound Type Abrasion Wound Stage Non Pressure Wound Drainage Amount None Surrounding Tissue Bright Red Comment scabbed, depressed wound to left lower thigh right lower leg Wound Assessment Admission Wound Type cellulitis Wound Stage Non Pressure Wound Drainage Amount None Wound Bed Greatest Portion Red (Granulation) Surrounding Tissue [place],Bright Red Comment red/hot area to right lower leg, outlined with black marker right groin Wound Assessment Admission Wound Type excoriation Wound Stage Non Pressure Wound Drainage Amount Minimal Drainage Description yeasty Drainage Odor Mild Odor Wound Bed Greatest Portion Red (Granulation) Surrounding Tissue Bright Red Comment washed with water, patted dry, pillow case placed between skin Results - Labs Lab/Micro Results: Lab Results-Last 24 Hours 06/26/24 06/26/24 06/26/24 Range/Units 22:00 22:00 22:21 WBC (3.98-10.04) x10^3/uL RBC (3.93-5.22) x10^6/uL Hgb (11.2-15.7) g/dL Hct (34.1-44.9) % MCV (79.4-94.8) fL MCH (25.6-32.2) pg MCHC (32.2-35.5) g/dL RDW (11.7-14.4) % Plt Count (182-369) x10^3/uL MPV (9.4-12.3) fL Gran % (34.0-71.1) % Immature Gran % (Auto) (0.001-0.429) % Nucleat RBC Rel Count (0.00-0.2) % Eos # (Auto) (0.04-0.36) x10^3/uL Immature Gran # (Auto) (0.001-0.031) x10^3u/L Absolute Lymphs (auto) (1.18-3.74) x10^3/uL Absolute Monos (auto) (0.24-0.86) x10^3/uL Absolute Nucleated RBC (0.00-0.012) x10^3u/L Lymphocytes % (19.3-51.7) % Monocytes % (4.7-12.5) % Eosinophils % (0.7-5.8) % Basophils % (0.1-1.2) % Absolute Granulocytes (1.56-6.13) x10^3/uL Basophils # (0.01-0.08) x10^3/uL Puncture Site RIGHT BRACHIAL pCO2 54 H (35-45) mmHg pO2 114 H (75-100) mmHg Base Excess 19.4 H (-2.0-2.0) O2 Saturation 97.1 (94-100) g/dF ABG pH 7.53 H (7.35-7.45) ABG HCO3 45.1 H* (22-28) ABG O2 Sat (Measured) 99.3 (95-100) % Shabbir Test NOT APPLICABLE A-a Gradient 175 a/A Ratio 0.39 Hemoglobin 12.8 Carboxyhemoglobin 1.2 (0.0-6.9) % THgb Methemoglobin 1.0 L (1.4-1.5) % Potassium 4.0 (3.5-5.1) Temperature 37.0 C POC O2 Flow Rate 50 % Inspiratory BiPAP Expiratory BiPAP Sodium (135-145) mmol/L Chloride (98-107) mmol/L Carbon Dioxide (22-30) mmol/L Anion Gap (5-15) MEQ/L BUN (7-17) mg/dL Creatinine (0.52-1.04) mg/dL Estimated GFR ML/MIN Glucose (74-106) mg/dL Lactic Acid 3.1 H (0.4-2.0) Calcium (8.4-10.2) mg/dL Magnesium (1.6-2.3) mg/dL Total Bilirubin (0.2-1.3) mg/dL AST (14-36) U/L ALT (0-35) U/L Alkaline Phosphatase (38-126) U/L Ammonia (9-30) umol/L Troponin I (0.000-0.033) ng/mL NT-Pro-B Natriuret Pep (<300) pg/mL Serum Total Protein (6.3-8.2) g/dL Albumin (3.5-5.0) g/dL Free T4 (0.78-2.19) ng/dL TSH 3rd Generation (0.470-4.680) mIU/L Urine Color Yellow (Yellow) Urine Appearance Clear (Clear) Urine pH 6.5 (4.6-8.0) Ur Specific [place] 1.010 (1.005-1.030) Urine Protein Negative (Negative) Urine Glucose (UA) 250 A (Negative) mg/dL Urine Ketones Negative (Negative) Urine Blood Negative (Negative) Urine Nitrite Negative (Negative) Urine Bilirubin Negative (Negative) Urine Urobilinogen 0.2 (0.2) mg/dL Ur Leukocyte Esterase Negative (Negative) U Hyaline Cast (Auto) NONE SEEN (0-2) /LPF Urine Microscopic RBC 0-2 (0-5) /HPF Urine Microscopic WBC 0-2 (0-5) /HPF Ur Epithelial Cells None Seen (None Seen) /HPF Urine Bacteria None Seen (None Seen) /HPF Urine Culture Reflexed ORDERED SEPARATELY (NO) Influenza Type A Ag (NEGATIVE) Influenza Type B Ag (NEGATIVE) RSV (PCR) (NEGATIVE) SARS-CoV-2 (PCR) (NEGATIVE) 06/26/24 06/26/24 06/26/24 Range/Units 22:30 22:42 22:42 WBC 16.8 H (3.98-10.04) x10^3/uL RBC 4.15 (3.93-5.22) x10^6/uL Hgb 12.2 (11.2-15.7) g/dL Hct 37.6 (34.1-44.9) % MCV 90.6 (79.4-94.8) fL MCH 29.4 (25.6-32.2) pg MCHC 32.4 (32.2-35.5) g/dL RDW 17.2 H (11.7-14.4) % Plt Count 175 L (182-369) x10^3/uL MPV 9.6 (9.4-12.3) fL Gran % 88.3 H (34.0-71.1) % Immature Gran % (Auto) 2.0 H (0.001-0.429) % Nucleat RBC Rel Count 0.0 (0.00-0.2) % Eos # (Auto) 0.05 (0.04-0.36) x10^3/uL Immature Gran # (Auto) 0.34 H (0.001-0.031) x10^3u/L Absolute Lymphs (auto) 0.79 L (1.18-3.74) x10^3/uL Absolute Monos (auto) 0.74 (0.24-0.86) x10^3/uL Absolute Nucleated RBC 0.00 (0.00-0.012) x10^3u/L Lymphocytes % 4.7 L (19.3-51.7) % Monocytes % 4.4 L (4.7-12.5) % Eosinophils % 0.3 L (0.7-5.8) % Basophils % 0.3 (0.1-1.2) % Absolute Granulocytes 14.87 H (1.56-6.13) x10^3/uL Basophils # 0.05 (0.01-0.08) x10^3/uL Puncture Site pCO2 (35-45) mmHg pO2 (75-100) mmHg Base Excess (-2.0-2.0) O2 Saturation (94-100) g/dF ABG pH (7.35-7.45) ABG HCO3 (22-28) ABG O2 Sat (Measured) (95-100) % Shabbir Test A-a Gradient a/A Ratio Hemoglobin Carboxyhemoglobin (0.0-6.9) % THgb Methemoglobin (1.4-1.5) % Potassium 3.8 (3.5-5.1) Temperature C POC O2 Flow Rate % Inspiratory BiPAP Expiratory BiPAP Sodium 137 (135-145) mmol/L Chloride 90 L (98-107) mmol/L Carbon Dioxide 35 H (22-30) mmol/L Anion Gap 16.5 H (5-15) MEQ/L BUN 24 H (7-17) mg/dL Creatinine 0.93 (0.52-1.04) mg/dL Estimated GFR 69.5 ML/MIN Glucose 244 H (74-106) mg/dL Lactic Acid (0.4-2.0) Calcium 8.8 (8.4-10.2) mg/dL Magnesium 1.8 (1.6-2.3) mg/dL Total Bilirubin 0.50 (0.2-1.3) mg/dL AST 42 H (14-36) U/L ALT 41 H (0-35) U/L Alkaline Phosphatase 125 (38-126) U/L Ammonia (9-30) umol/L Troponin I 0.017 (0.000-0.033) ng/mL NT-Pro-B Natriuret Pep 163 (<300) pg/mL Serum Total Protein 7.7 (6.3-8.2) g/dL Albumin 4.3 (3.5-5.0) g/dL Free T4 (0.78-2.19) ng/dL TSH 3rd Generation (0.470-4.680) mIU/L Urine Color (Yellow) Urine Appearance (Clear) Urine pH (4.6-8.0) Ur Specific [place] (1.005-1.030) Urine Protein (Negative) Urine Glucose (UA) (Negative) mg/dL Urine Ketones (Negative) Urine Blood (Negative) Urine Nitrite (Negative) Urine Bilirubin (Negative) Urine Urobilinogen (0.2) mg/dL Ur Leukocyte Esterase (Negative) U Hyaline Cast (Auto) (0-2) /LPF Urine Microscopic RBC (0-5) /HPF Urine Microscopic WBC (0-5) /HPF Ur Epithelial Cells (None Seen) /HPF Urine Bacteria (None Seen) /HPF Urine Culture Reflexed (NO) Influenza Type A Ag (NEGATIVE) Influenza Type B Ag (NEGATIVE) RSV (PCR) (NEGATIVE) SARS-CoV-2 (PCR) (NEGATIVE) 06/26/24 06/26/24 06/26/24 Range/Units 22:42 22:42 22:49 WBC (3.98-10.04) x10^3/uL RBC (3.93-5.22) x10^6/uL Hgb (11.2-15.7) g/dL Hct (34.1-44.9) % MCV (79.4-94.8) fL MCH (25.6-32.2) pg MCHC (32.2-35.5) g/dL RDW (11.7-14.4) % Plt Count (182-369) x10^3/uL MPV (9.4-12.3) fL Gran % (34.0-71.1) % Immature Gran % (Auto) (0.001-0.429) % Nucleat RBC Rel Count (0.00-0.2) % Eos # (Auto) (0.04-0.36) x10^3/uL Immature Gran # (Auto) (0.001-0.031) x10^3u/L Absolute Lymphs (auto) (1.18-3.74) x10^3/uL Absolute Monos (auto) (0.24-0.86) x10^3/uL Absolute Nucleated RBC (0.00-0.012) x10^3u/L Lymphocytes % (19.3-51.7) % Monocytes % (4.7-12.5) % Eosinophils % (0.7-5.8) % Basophils % (0.1-1.2) % Absolute Granulocytes (1.56-6.13) x10^3/uL Basophils # (0.01-0.08) x10^3/uL Puncture Site pCO2 (35-45) mmHg pO2 (75-100) mmHg Base Excess (-2.0-2.0) O2 Saturation (94-100) g/dF ABG pH (7.35-7.45) ABG HCO3 (22-28) ABG O2 Sat (Measured) (95-100) % Shabbir Test A-a Gradient a/A Ratio Hemoglobin Carboxyhemoglobin (0.0-6.9) % THgb Methemoglobin (1.4-1.5) % Potassium (3.5-5.1) Temperature C POC O2 Flow Rate % Inspiratory BiPAP Expiratory BiPAP Sodium (135-145) mmol/L Chloride (98-107) mmol/L Carbon Dioxide (22-30) mmol/L Anion Gap (5-15) MEQ/L BUN (7-17) mg/dL Creatinine (0.52-1.04) mg/dL Estimated GFR ML/MIN Glucose (74-106) mg/dL Lactic Acid (0.4-2.0) Calcium (8.4-10.2) mg/dL Magnesium (1.6-2.3) mg/dL Total Bilirubin (0.2-1.3) mg/dL AST (14-36) U/L ALT (0-35) U/L Alkaline Phosphatase (38-126) U/L Ammonia < 9 L (9-30) umol/L Troponin I (0.000-0.033) ng/mL NT-Pro-B Natriuret Pep (<300) pg/mL Serum Total Protein (6.3-8.2) g/dL Albumin (3.5-5.0) g/dL Free T4 (0.78-2.19) ng/dL TSH 3rd Generation 4.569 (0.470-4.680) mIU/L Urine Color (Yellow) Urine Appearance (Clear) Urine pH (4.6-8.0) Ur Specific [place] (1.005-1.030) Urine Protein (Negative) Urine Glucose (UA) (Negative) mg/dL Urine Ketones (Negative) Urine Blood (Negative) Urine Nitrite (Negative) Urine Bilirubin (Negative) Urine Urobilinogen (0.2) mg/dL Ur Leukocyte Esterase (Negative) U Hyaline Cast (Auto) (0-2) /LPF Urine Microscopic RBC (0-5) /HPF Urine Microscopic WBC (0-5) /HPF Ur Epithelial Cells (None Seen) /HPF Urine Bacteria (None Seen) /HPF Urine Culture Reflexed (NO) Influenza Type A Ag NEGATIVE (NEGATIVE) Influenza Type B Ag NEGATIVE (NEGATIVE) RSV (PCR) NEGATIVE (NEGATIVE) SARS-CoV-2 (PCR) NEGATIVE (NEGATIVE) 06/26/24 06/27/24 06/27/24 Range/Units 22:49 00:10 02:12 WBC (3.98-10.04) x10^3/uL RBC (3.93-5.22) x10^6/uL Hgb (11.2-15.7) g/dL Hct (34.1-44.9) % MCV (79.4-94.8) fL MCH (25.6-32.2) pg MCHC (32.2-35.5) g/dL RDW (11.7-14.4) % Plt Count (182-369) x10^3/uL MPV (9.4-12.3) fL Gran % (34.0-71.1) % Immature Gran % (Auto) (0.001-0.429) % Nucleat RBC Rel Count (0.00-0.2) % Eos # (Auto) (0.04-0.36) x10^3/uL Immature Gran # (Auto) (0.001-0.031) x10^3u/L Absolute Lymphs (auto) (1.18-3.74) x10^3/uL Absolute Monos (auto) (0.24-0.86) x10^3/uL Absolute Nucleated RBC (0.00-0.012) x10^3u/L Lymphocytes % (19.3-51.7) % Monocytes % (4.7-12.5) % Eosinophils % (0.7-5.8) % Basophils % (0.1-1.2) % Absolute Granulocytes (1.56-6.13) x10^3/uL Basophils # (0.01-0.08) x10^3/uL Puncture Site RIGHT BRACHIAL pCO2 53 H (35-45) mmHg pO2 98 (75-100) mmHg Base Excess 14.8 H (-2.0-2.0) O2 Saturation 96.4 (94-100) g/dF ABG pH 7.49 H (7.35-7.45) ABG HCO3 40.4 H* (22-28) ABG O2 Sat (Measured) 98.8 (95-100) % Shabbir Test NOT APPLICABLE A-a Gradient 192 a/A Ratio 0.34 Hemoglobin 12.2 Carboxyhemoglobin 1.2 (0.0-6.9) % THgb Methemoglobin 1.2 L (1.4-1.5) % Potassium 3.6 (3.5-5.1) Temperature 37.0 C POC O2 Flow Rate 50 % Inspiratory BiPAP 16 Expiratory BiPAP 8 Sodium (135-145) mmol/L Chloride (98-107) mmol/L Carbon Dioxide (22-30) mmol/L Anion Gap (5-15) MEQ/L BUN (7-17) mg/dL Creatinine (0.52-1.04) mg/dL Estimated GFR ML/MIN Glucose (74-106) mg/dL Lactic Acid 4.0 H (0.4-2.0) Calcium (8.4-10.2) mg/dL Magnesium (1.6-2.3) mg/dL Total Bilirubin (0.2-1.3) mg/dL AST (14-36) U/L ALT (0-35) U/L Alkaline Phosphatase (38-126) U/L Ammonia (9-30) umol/L Troponin I 0.065 H* (0.000-0.033) ng/mL NT-Pro-B Natriuret Pep (<300) pg/mL Serum Total Protein (6.3-8.2) g/dL Albumin (3.5-5.0) g/dL Free T4 0.78 (0.78-2.19) ng/dL TSH 3rd Generation (0.470-4.680) mIU/L Urine Color (Yellow) Urine Appearance (Clear) Urine pH (4.6-8.0) Ur Specific [place] (1.005-1.030) Urine Protein (Negative) Urine Glucose (UA) (Negative) mg/dL Urine Ketones (Negative) Urine Blood (Negative) Urine Nitrite (Negative) Urine Bilirubin (Negative) Urine Urobilinogen (0.2) mg/dL Ur Leukocyte Esterase (Negative) U Hyaline Cast (Auto) (0-2) /LPF Urine Microscopic RBC (0-5) /HPF Urine Microscopic WBC (0-5) /HPF Ur Epithelial Cells (None Seen) /HPF Urine Bacteria (None Seen) /HPF Urine Culture Reflexed (NO) Influenza Type A Ag (NEGATIVE) Influenza Type B Ag (NEGATIVE) RSV (PCR) (NEGATIVE) SARS-CoV-2 (PCR) (NEGATIVE) 06/27/24 Range/Units 02:35 WBC (3.98-10.04) x10^3/uL RBC (3.93-5.22) x10^6/uL Hgb (11.2-15.7) g/dL Hct (34.1-44.9) % MCV (79.4-94.8) fL MCH (25.6-32.2) pg MCHC (32.2-35.5) g/dL RDW (11.7-14.4) % Plt Count (182-369) x10^3/uL MPV (9.4-12.3) fL Gran % (34.0-71.1) % Immature Gran % (Auto) (0.001-0.429) % Nucleat RBC Rel Count (0.00-0.2) % Eos # (Auto) (0.04-0.36) x10^3/uL Immature Gran # (Auto) (0.001-0.031) x10^3u/L Absolute Lymphs (auto) (1.18-3.74) x10^3/uL Absolute Monos (auto) (0.24-0.86) x10^3/uL Absolute Nucleated RBC (0.00-0.012) x10^3u/L Lymphocytes % (19.3-51.7) % Monocytes % (4.7-12.5) % Eosinophils % (0.7-5.8) % Basophils % (0.1-1.2) % Absolute Granulocytes (1.56-6.13) x10^3/uL Basophils # (0.01-0.08) x10^3/uL Puncture Site pCO2 (35-45) mmHg pO2 (75-100) mmHg Base Excess (-2.0-2.0) O2 Saturation (94-100) g/dF ABG pH (7.35-7.45) ABG HCO3 (22-28) ABG O2 Sat (Measured) (95-100) % Shabbir Test A-a Gradient a/A Ratio Hemoglobin Carboxyhemoglobin (0.0-6.9) % THgb Methemoglobin (1.4-1.5) % Potassium (3.5-5.1) Temperature C POC O2 Flow Rate % Inspiratory BiPAP Expiratory BiPAP Sodium (135-145) mmol/L Chloride (98-107) mmol/L Carbon Dioxide (22-30) mmol/L Anion Gap (5-15) MEQ/L BUN (7-17) mg/dL Creatinine (0.52-1.04) mg/dL Estimated GFR ML/MIN Glucose (74-106) mg/dL Lactic Acid 3.1 H (0.4-2.0) Calcium (8.4-10.2) mg/dL Magnesium (1.6-2.3) mg/dL Total Bilirubin (0.2-1.3) mg/dL AST (14-36) U/L ALT (0-35) U/L Alkaline Phosphatase (38-126) U/L Ammonia (9-30) umol/L Troponin I (0.000-0.033) ng/mL NT-Pro-B Natriuret Pep (<300) pg/mL Serum Total Protein (6.3-8.2) g/dL Albumin (3.5-5.0) g/dL Free T4 (0.78-2.19) ng/dL TSH 3rd Generation (0.470-4.680) mIU/L Urine Color (Yellow) Urine Appearance (Clear) Urine pH (4.6-8.0) Ur Specific [place] (1.005-1.030) Urine Protein (Negative) Urine Glucose (UA) (Negative) mg/dL Urine Ketones (Negative) Urine Blood (Negative) Urine Nitrite (Negative) Urine Bilirubin (Negative) Urine Urobilinogen (0.2) mg/dL Ur Leukocyte Esterase (Negative) U Hyaline Cast (Auto) (0-2) /LPF Urine Microscopic RBC (0-5) /HPF Urine Microscopic WBC (0-5) /HPF Ur Epithelial Cells (None Seen) /HPF Urine Bacteria (None Seen) /HPF Urine Culture Reflexed (NO) Influenza Type A Ag (NEGATIVE) Influenza Type B Ag (NEGATIVE) RSV (PCR) (NEGATIVE) SARS-CoV-2 (PCR) (NEGATIVE) - Radiology Impressions Radiology Exams & Impressions: Radiology Procedures Category Date Time Status CHEST 1 VIEW (PORTABLE) Stat Exams 06/26/24 22:11 Taken HEAD WITHOUT CONTRAST [CT] Stat Exams 06/27/24 02:05 Completed Chest x-ray unfortunately, evaluation limited as patient is not centered on the image, and unable to assess right costophrenic angle or lateral area of the right lung. Cardiomegaly present. Some bronchovascular crowding, but also has poor inspiratory effort. Diaphragms well-defined so no clear effusion. No clear infiltrate although perhaps some left base atelectasis. (Images personally reviewed) CT head no acute intracranial hemorrhage. Mild chronic microvascular ischemic changes. - Other Procedures and Tests Respiratory Therapy 06/26/24 22:08 BiPap/CPAP STAT 06/27/24 05:25 Oxygen Nasal Cannula 6 lpm Respiratory Therapy Assessment DAILY Assessment/Plan (1) Sepsis Current Visit: No Status: Acute Qualifiers: Sepsis type: sepsis due to unspecified organism Sepsis acute organ dysfunction status: without acute organ dysfunction Qualified Code(s): A41.9 - Sepsis, unspecified organism Assessment & Plan: 63-year-old woman with a history of COPD on 4 L oxygen, DM2, HFpEF, hypothyroidism, and hypertension, here with sepsis of unclear origin. ## Sepsis presenting with fever up to 105 and leukocytosis of 17, with 88% neutrophils. Of note, per the long term records, patient appears to be maintained on prednisone 20 mg while there, instead of tapering off steroids as her last discharge medication list from March would indicate. This might be why her white count is elevated. However, it would not explain the severely high fever. Lactic acid is also mildly elevated. However, her blood pressure appears to be normal and overall does not have other signs of hypoperfusion. Source of the possible sepsis is not clear. Because of her reported hypoxia, pneumonia is in the differential. However, her chest x-ray appears generally clear except for possibly some mild atelectasis and overall bronchovascular crowding from poor inspiration. She appears to have a cellulitis over the right anterior nice, although it appears relatively minor to be causing such severe fever. No signs of infection on urinalysis. No abdominal signs or symptoms, although again, limited by patient's mental status. 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 Check procalcitonin; if this is low, it might suggest the leukocytosis is more due to the chronic steroid use ## Acute encephalopathy presumably metabolic in origin. Reviewing prior records, she has had multiple admissions where she presents with confusion, usually due to noncompliance with her home oxygen and worsening of her chronic COPD, although patient is also on multiple psychoactive medications. Currently, her PCO2, which is chronically elevated, is appropriately compensated, so this does not appear to be hypercarbia. Possibly her confusion is all due to sepsis, but origin of that is also unclear (see above). Her TSH is in goal range, so unlikely myxedema coma. No acute changes on CT head, so does not appear to have hydrocephalus or intracranial hemorrhage. Treat sepsis as above Consider repeating ABG later today if no improvement during daytime with antibiotics ## COPD, chronic hypoxic respiratory failure patient is chronically on 4 L oxygen. Currently on 6 L, but not clear if she actually needs more than her baseline requirements. She has evidence of chronic CO2 retention, with her serum bicarb usually around 36. Current ABG suggesting metabolic alkalosis, however I suspect this is due to rapid correction of her chronic respiratory acidosis, with slower adjustment of her metabolic compensation. In either case, does not appear to be having COPD exacerbation. Of note, patient was discharged last in March on a short course of prednisone 20 BID. However, it appears from the long term notes that patient has been on prednisone 20 mg daily continuously since then. Wean oxygen to maintain SpO2 between 91 to 94% Resume DuoNeb q.4 hours PRN Resume home Trelegy Attempt to slowly wean prednisone due to its chronic use, decrease to 15 mg daily ## Type 2 diabetes uncontrolled, with hemoglobin A1c of 8.6 last week. Continue Lantus daily, but decrease dose to 25 units from her home dose of 30 units, since currently unlikely to be eating significantly Placed on moderate dose sliding scale insulin ## Chronic diastolic heart failure preserved EF on echocardiogram from March. Currently appears to be euvolemic. BNP today essentially normal, down from markedly elevated in March. Patient was given significant fluids in the ED because of her elevated lactate. Discontinue normal saline at this point due to history of CHF, and high doses of torsemide at home Hold home torsemide 100 mg daily and 50 mg in the evening because of sepsis as above and relative hypotension Monitor volume status and resume diuretics as needed ## Hypertension arrived with markedly elevated blood pressure, but has been dropping while in the ED. Currently generally controlled. Resume carvedilol 6.25 mg BID, losartan 25 QHS Holding torsemide as above ## Psychoaffective disorder diagnosis is not certain at this time. Per history, suggested anxiety and depression, but that would not explain why she is on Tegretol. Resume home Tegretol, Abilify, Cymbalta, trazodone 200 QHS Hold home Xanax given altered mental status CODE STATUS: Full code Diet: Low-sodium, diabetic Prophylaxis: Lovenox 40 mg daily Dispo: Admit to inpatient Entirety of encounter took place via live audio/video telemedicine device, with remote physician and patient in hospital, with the assistance of bedside nurse. Telemedicine Encounter - Telemedicine Encounter Telemedicine Encounter: "The entirety of this encounter was performed via Telemedicine" This visit was performed using real-time audio and video connection between my location and thepatients locationwith the assistance of a surrogateat the patients location. Written or verbal consent was obtained from the patient/guardian to perform this visit using[employer]medicine technology. Any patient questions regarding the telemedicine interaction were answered.
[2024-06-27] MEDS ORDERED: MEDICATION INTERVENTION MC SCH (07:30)
[2024-06-27 07:46] LABS: Hematocrit 33.5 % (34.1-44.9); Hemoglobin 10.6 g/dL (11.2-15.7); Mean Cell Volume 93.6 fL (79.4-94.8); Mean Corpuscular Hemoglobin 29.6 pg (25.6-32.2); Mean Corpuscular Hgb Concent. 31.6 g/dL (32.2-35.5); Mean Platelet Volume 10.7 fL (9.4-12.3); Platelet Count 176 x10^3/uL (182-369); Red Blood Count 3.58 x10^6/uL (3.93-5.22); Red Cell Distribution Width 17.7 % (11.7-14.4); White Blood Count 18.4 x10^3/uL (3.98-10.04)
[2024-06-27 08:37] LABS: ALBUMIN 3.8 g/dL (3.5-5.0); ANION GAP 16.9 MEQ/L (5-15); BILIRUBIN,TOTAL 0.5 mg/dL (0.2-1.3); Calcium 8.3 mg/dL (8.4-10.2); Creatinine 1 1.32 mg/dL (0.52-1.04); EST GLOMERULAR FILTRATION RATE 45.7 ML/MIN; Potassium 3.7 mmol/L (3.5-5.1)
--- NOTE | 2024-06-27 08:43 | XRAY ---
Indication: Short of breath. Comparison: March 21, 2024 Portable chest less inflated with again minimal right midlung discoid atelectasis/scarring. No focal infiltrate, consolidation, or large effusion. Heart not enlarged. Bony thorax intact again with osteopenia and degenerative changes. Impression: Continued nonacute chest with chronic features.
[2024-06-27] MEDS: PHARMACY DOSING REQUIRED: VANCOMYCIN IV ONE (09:56)
[2024-06-27] MEDS ORDERED: NON-FORMULARY ITEM (Torsemide [Torsemide] 100 MG Tablet) PO SCH ×2 (10:00→18:00)
[2024-06-27] MEDS ORDERED: NON-FORMULARY ITEM (Fluticasone/Umeclidin/Vilanter [Trelegy Ellipta 200-62.5-25] 1 EACH Bl IH SCH (10:00)
[2024-06-27] MEDS ORDERED: DELTASONE 20 MG PO SCH (10:00)
[2024-06-27] MEDS ORDERED: NON-FORMULARY ITEM (Duloxetine Hcl [Duloxetine Hcl] 60 MG Capsule.Dr) PO SCH (10:00)
[2024-06-27] MEDS ORDERED: PREGABALIN 300 MG PO SCH (10:00)
[2024-06-27] MEDS: TYLENOL 325 MG PO PRN (10:02)
[2024-06-27] MEDS: FEOSOL 325 MG PO SCH (10:02)
[2024-06-27] MEDS: ZYLOPRIM 100 MG PO SCH (10:02)
[2024-06-27] MEDS: LYRICA 150MG PO SCH (10:02)
[2024-06-27] MEDS: Cymbalta 30 MG Capsule PO SCH (10:02)
[2024-06-27] MEDS: Coreg PO SCH (10:02)
[2024-06-27] MEDS: ENOXAPARIN SODIUM SQ SCH (10:03)
[2024-06-27] MEDS: Klor Con PO SCH (10:03)
[2024-06-27] MEDS: SYNTHROID 125 MCG PO SCH (10:03)
[2024-06-27] MEDS: Tegretol 200 MG PO SCH (10:03)
[2024-06-27] MEDS: DELTASONE 5 MG PO SCH (10:03)
[2024-06-27] MEDS: Lantus Insulin SQ SCH (10:05)
[2024-06-27] MEDS ORDERED: Sodium Chloride 0.9% 500 ML 500 ML IV SCH (10:15)
[2024-06-27] MEDS: HUMULIN R SQ PRN (10:21)
[2024-06-27] MEDS: Sodium Chloride 0.9% 500 ML 500 ML IV ONE (11:40)
--- NOTE | 2024-06-27 11:52 | XRAY ---
Indication: Sepsis. Multiple contiguous axial images obtained through the chest without contrast. Comparison: October 30, 2023 There is now diffuse respiration artifact limiting exam. Lungs again demonstrates mild bibasilar subsegmental atelectasis/scarring more than before. No gross pulmonary mass/nodule, infiltrate, or large effusion. Heart not enlarged. Aorta is normal in course and caliber. No pathologic mediastinal lymphadenopathy. Bony thorax intact again with mild degenerative changes throughout spine and old bilateral rib fractures. Limited upper abdomen again demonstrates fatty liver, a few small gallstones, and 1.5 cm left mid renal cortical cyst. Impression: 1. Diffuse respiration artifact limits exam. 2. Again chronic findings including bibasilar subsegmental atelectasis/scarring, chronic bony findings, fatty liver, gallstones, and left renal cyst. 3. Remaining CT chest without contrast is grossly negative.
--- NOTE | 2024-06-27 13:52 | XRAY ---
Indication: Erythema and swelling. Fever. Comparison: None 2 view right lower leg demonstrates minimal vascular calcifications, osteopenia, tiny suprapatella spurring, and small medial malleolus tip heterotopic ossification. Nondisplaced healing proximal fibula and remote distal fibula fracture with intramedullary perez and 4 transverse screws. Long transverse screw demonstrates surrounding radiolucency favoring loosening. Foot reported separately.
--- NOTE | 2024-06-27 13:58 | XRAY ---
Indication: Erythema and swelling. Fever. Comparison: None 3 nonweightbearing views right foot demonstrates articular surface fracture base 1st proximal phalanx of uncertain chronicity. Chronic findings including osteopenia, small heel spurs, small anterior talus heterotopic ossification, and mild diffuse soft tissue swelling . Remote 1st/2nd talotarsometatarsal and 3rd tarsometatarsal arthrodesis with fixation hardware. Long talotarsometatarsal screw is fractured/angulated. Lower leg reported separately.
--- NOTE | 2024-06-27 14:32 | XRAY ---
Indication: Right leg erythema, swelling, and fever. Two-dimensional sonogram and color Doppler imaging major venous vessels right leg performed. Comparison: None No thrombus seen in the examined deep venous vessels right leg including greater saphenous vein. Veins demonstrate normal compressibility. Venous waveforms are normal with and without augmentation. Impression: Right leg negative for DVT.
[2024-06-27] MEDS: NYSTOP 30 GM CREAM TOP SCH (14:44)
[2024-06-27] MEDS: LEVOFLOXACIN 750MG/150ML D5W 750 MG/150 ML BAG IV STA (15:10)
--- NOTE | 2024-06-27 16:46 | PCM.CONS ---
Podiatry HPI - Consult Date of Consultation Date: 06/27/24 Reason for Consult: right leg pain following fall with LOC. Consulting Provider: KAROLYN BENITO DPM - [facility] History of Present Illness: 63-year-old woman with history of COPD chronically on 4 L oxygen, HFpEF, DM2, HTN, hypothyroidism, who presents from long term with reported dyspnea and fever. Of note, history is obtained entirely from chart, as patient is unable to answer any questions. She appears to be fairly somnolent. Reportedly, she had an SpO2 of 88% at the long term, and a temperature of 103. In the ED, she had a maximal temperature of 105.3. She was initially placed on BiPAP, but is currently on 6 L oxygen. No other history obtained. Medications & Allergies Home Medications: Home Medication List ALPRAZolam 0.25 MG [xanAX 0.25 MG] 0.25 mg PO TID 06/27/24 [History Confirmed 06/27/24] Albuterol 8 gm Mdi Hfa [Ventolin Hfa MDI] 109 mcg IH Q6H PRN PRN 06/27/24 [History Confirmed 06/27/24] Allopurinol 100 mg [Zyloprim 100 mg] 100 mg PO BID 06/27/24 [History Confirmed 06/27/24] Aripiprazole 10 mg [Abilify 10 MG] 10 mg PO HS 06/27/24 [History Confirmed 06/27/24] Carvedilol [Coreg ] 6.25 mg PO BID 06/27/24 [History Confirmed 06/27/24] Cyanocobalamin (Vitamin B-12) [B-12] 1,000 mcg PO DAILY 06/27/24 [History Confirmed 06/27/24] Duloxetine HCl 120 mg PO DAILY 06/27/24 [History Confirmed 06/27/24] Ergocalciferol (Vitamin D2) [Vitamin D2] 1,250 mcg PO WEEKLY 06/27/24 [History Confirmed 06/27/24] Ferrous Sulfate 325 mg [Feosol 325 mg] 325 mg PO DAILY 06/27/24 [History Confirmed 06/27/24] Fluticasone/Umeclidin/Vilanter [Trelegy Ellipta 200-62.5-25] 1 each IH DAILY 06/27/24 [History Confirmed 06/27/24] Insulin Glargine [Lantus Insulin] 30 units SQ QAM 06/27/24 [History Confirmed 06/27/24] Insulin Lispro See Rx Instructions .ROUTE .COMPLEX 06/27/24 [History Confirmed 06/27/24] Ipratropium/Albuterol Sulfate [Iprat-Albut 0.5-3(2.5) mg/3 ml] 3 ml IH Q4H PRN P RN 06/27/24 [History Confirmed 06/27/24] Levothyroxine Sodium 125 mcg PO DAILY 06/27/24 [History Confirmed 06/27/24] Losartan Potassium 25 mg PO EVENING MEAL 06/27/24 [History Confirmed 06/27/24] Potassium Chloride Tab* [Klor Con] 40 meq PO QID 06/27/24 [History Confirmed 06/27/24] Pregabalin 300 mg PO BID 06/27/24 [History Confirmed 06/27/24] Tiotropium [place] Inhaler [Spiriva 18 Mcg/Cap Inhaler] 1 puff IH DAILY 06/27/24 [History Confirmed 06/27/24] Torsemide 50 mg PO EVENING MEAL 06/27/24 [History Confirmed 06/27/24] Torsemide 100 mg PO DAILY 06/27/24 [History Confirmed 06/27/24] Trazodone HCl 200 mg PO HS 06/27/24 [History Confirmed 06/27/24] carBAMazepine [Tegretol] 200 mg PO BID 06/27/24 [History Confirmed 06/27/24] predniSONE [Prednisone] 20 mg PO DAILY 06/27/24 [History Confirmed 06/27/24] Allergies/Adverse Reactions: Allergies Allergy/AdvReac Type Severity Reaction Status Date / Time ceftriaxone Allergy Severe Anaphylactic Verified 06/26/24 21:55 Reaction gabapentin Allergy Severe pain Verified 06/26/24 21:55 cefazedone Allergy Verified 06/26/24 21:55 hydralazine Allergy Verified 06/26/24 21:55 - Past Medical History Past Medical History: Yes Neurological History: Peripheral Neuropathy ENT History: Cataracts Cardiac History: Congestive Heart Failure, High Cholesterol, Hypertension Respiratory History: CHF, COPD, Emphysema, Sleep Apnea, Other Endocrine Medical History: Hypothyroidism Musculoskelatal History: Arthritis GI Medical History: Other History: No Pertinent History Pyscho-Social History: Anxiety, Depression Reproductive Disorders: No Pertinent History Comment: trigeminal neuralgia, sepsis, hypokalemia, COVID, hypoxemia, b12 deficiency, wounds, hypercarbia, right ankle fracture, left foot fracture, renal cyst, hyponatremia - Past Surgical History Past Surgical History: Yes Neuro Surgical History: No Pertinent History Cardiac History: No Pertinent History Respiratory Surgery: No Pertinent History GI Surgical History: Appendectomy Genitourinary Surgical Hx: No Pertinent History Musculskeletal Surgical Hx: Orthopedic Surgery Female Surgical History: No Pertinent History Other Surgical History: elbow surgery, skin cancer removed, right foot surgery - 12/27/21 Significant Family History: other (Unable to obtain family history due to patient's mental status.) - Social History Smoking Status: Never smoker How long have you smoked: 30 years Exposure to second hand smoke: No Alcohol: None Drug Use: none - Social Determinants of Health Will the patient participate in the screening: Unable to obtain Do you worry about a steady place to live?: No Do you have any problems with any of the following?: No known problems In the past 12 months,have you had to go without utilities?: No Have you or anyone in your house had to go without enough: No Transportation Issues: No Has anyone in your support network made you feel unsafe?: No Does the patient want assistance with any of the above?: No Comment: Currently utilizing [facility] Physical Exam - Narrative Narrative Physical Exam: Podiatry Physical Exam Results - Labs Lab/Micro Results: Lab Results-Last 24 Hours 06/26/24 06/26/24 06/26/24 Range/Units 22:00 22:00 22:21 WBC (3.98-10.04) x10^3/uL RBC (3.93-5.22) x10^6/uL Hgb (11.2-15.7) g/dL Hct (34.1-44.9) % MCV (79.4-94.8) fL MCH (25.6-32.2) pg MCHC (32.2-35.5) g/dL RDW (11.7-14.4) % Plt Count (182-369) x10^3/uL MPV (9.4-12.3) fL Gran % (34.0-71.1) % Immature Gran % (Auto) (0.001-0.429) % Nucleat RBC Rel Count (0.00-0.2) % Eos # (Auto) (0.04-0.36) x10^3/uL Immature Gran # (Auto) (0.001-0.031) x10^3u/L Absolute Lymphs (auto) (1.18-3.74) x10^3/uL Absolute Monos (auto) (0.24-0.86) x10^3/uL Absolute Nucleated RBC (0.00-0.012) x10^3u/L Lymphocytes % (19.3-51.7) % Monocytes % (4.7-12.5) % Eosinophils % (0.7-5.8) % Basophils % (0.1-1.2) % Absolute Granulocytes (1.56-6.13) x10^3/uL Basophils # (0.01-0.08) x10^3/uL Puncture Site RIGHT BRACHIAL pCO2 54 H (35-45) mmHg pO2 114 H (75-100) mmHg Base Excess 19.4 H (-2.0-2.0) O2 Saturation 97.1 (94-100) g/dF ABG pH 7.53 H (7.35-7.45) ABG HCO3 45.1 H* (22-28) ABG O2 Sat (Measured) 99.3 (95-100) % Shabbir Test NOT APPLICABLE A-a Gradient 175 a/A Ratio 0.39 Hemoglobin 12.8 Carboxyhemoglobin 1.2 (0.0-6.9) % THgb Methemoglobin 1.0 L (1.4-1.5) % Potassium 4.0 (3.5-5.1) Temperature 37.0 C POC O2 Flow Rate 50 % Inspiratory BiPAP Expiratory BiPAP Sodium (135-145) mmol/L Chloride (98-107) mmol/L Carbon Dioxide (22-30) mmol/L Anion Gap (5-15) MEQ/L BUN (7-17) mg/dL Creatinine (0.52-1.04) mg/dL Estimated GFR ML/MIN Glucose (74-106) mg/dL POC Glucometer (74 to 106) mg/dL Lactic Acid 3.1 H (0.4-2.0) Calcium (8.4-10.2) mg/dL Magnesium (1.6-2.3) mg/dL Total Bilirubin (0.2-1.3) mg/dL AST (14-36) U/L ALT (0-35) U/L Alkaline Phosphatase (38-126) U/L Ammonia (9-30) umol/L Troponin I (0.000-0.033) ng/mL NT-Pro-B Natriuret Pep (<300) pg/mL Serum Total Protein (6.3-8.2) g/dL Albumin (3.5-5.0) g/dL Procalcitonin (0.030-0.080) ng/mL Free T4 (0.78-2.19) ng/dL TSH 3rd Generation (0.470-4.680) mIU/L Urine Color Yellow (Yellow) Urine Appearance Clear (Clear) Urine pH 6.5 (4.6-8.0) Ur Specific [place] 1.010 (1.005-1.030) Urine Protein Negative (Negative) Urine Glucose (UA) 250 A (Negative) mg/dL Urine Ketones Negative (Negative) Urine Blood Negative (Negative) Urine Nitrite Negative (Negative) Urine Bilirubin Negative (Negative) Urine Urobilinogen 0.2 (0.2) mg/dL Ur Leukocyte Esterase Negative (Negative) U Hyaline Cast (Auto) NONE SEEN (0-2) /LPF Urine Microscopic RBC 0-2 (0-5) /HPF Urine Microscopic WBC 0-2 (0-5) /HPF Ur Epithelial Cells None Seen (None Seen) /HPF Urine Bacteria None Seen (None Seen) /HPF Urine Culture Reflexed ORDERED SEPARATELY (NO) Influenza Type A Ag (NEGATIVE) Influenza Type B Ag (NEGATIVE) RSV (PCR) (NEGATIVE) SARS-CoV-2 (PCR) (NEGATIVE) 06/26/24 06/26/24 06/26/24 Range/Units 22:30 22:42 22:42 WBC 16.8 H (3.98-10.04) x10^3/uL RBC 4.15 (3.93-5.22) x10^6/uL Hgb 12.2 (11.2-15.7) g/dL Hct 37.6 (34.1-44.9) % MCV 90.6 (79.4-94.8) fL MCH 29.4 (25.6-32.2) pg MCHC 32.4 (32.2-35.5) g/dL RDW 17.2 H (11.7-14.4) % Plt Count 175 L (182-369) x10^3/uL MPV 9.6 (9.4-12.3) fL Gran % 88.3 H (34.0-71.1) % Immature Gran % (Auto) 2.0 H (0.001-0.429) % Nucleat RBC Rel Count 0.0 (0.00-0.2) % Eos # (Auto) 0.05 (0.04-0.36) x10^3/uL Immature Gran # (Auto) 0.34 H (0.001-0.031) x10^3u/L Absolute Lymphs (auto) 0.79 L (1.18-3.74) x10^3/uL Absolute Monos (auto) 0.74 (0.24-0.86) x10^3/uL Absolute Nucleated RBC 0.00 (0.00-0.012) x10^3u/L Lymphocytes % 4.7 L (19.3-51.7) % Monocytes % 4.4 L (4.7-12.5) % Eosinophils % 0.3 L (0.7-5.8) % Basophils % 0.3 (0.1-1.2) % Absolute Granulocytes 14.87 H (1.56-6.13) x10^3/uL Basophils # 0.05 (0.01-0.08) x10^3/uL Puncture Site pCO2 (35-45) mmHg pO2 (75-100) mmHg Base Excess (-2.0-2.0) O2 Saturation (94-100) g/dF ABG pH (7.35-7.45) ABG HCO3 (22-28) ABG O2 Sat (Measured) (95-100) % Shabbir Test A-a Gradient a/A Ratio Hemoglobin Carboxyhemoglobin (0.0-6.9) % THgb Methemoglobin (1.4-1.5) % Potassium 3.8 (3.5-5.1) Temperature C POC O2 Flow Rate % Inspiratory BiPAP Expiratory BiPAP Sodium 137 (135-145) mmol/L Chloride 90 L (98-107) mmol/L Carbon Dioxide 35 H (22-30) mmol/L Anion Gap 16.5 H (5-15) MEQ/L BUN 24 H (7-17) mg/dL Creatinine 0.93 (0.52-1.04) mg/dL Estimated GFR 69.5 ML/MIN Glucose 244 H (74-106) mg/dL POC Glucometer (74 to 106) mg/dL Lactic Acid (0.4-2.0) Calcium 8.8 (8.4-10.2) mg/dL Magnesium 1.8 (1.6-2.3) mg/dL Total Bilirubin 0.50 (0.2-1.3) mg/dL AST 42 H (14-36) U/L ALT 41 H (0-35) U/L Alkaline Phosphatase 125 (38-126) U/L Ammonia (9-30) umol/L Troponin I 0.017 (0.000-0.033) ng/mL NT-Pro-B Natriuret Pep 163 (<300) pg/mL Serum Total Protein 7.7 (6.3-8.2) g/dL Albumin 4.3 (3.5-5.0) g/dL Procalcitonin (0.030-0.080) ng/mL Free T4 (0.78-2.19) ng/dL TSH 3rd Generation (0.470-4.680) mIU/L Urine Color (Yellow) Urine Appearance (Clear) Urine pH (4.6-8.0) Ur Specific [place] (1.005-1.030) Urine Protein (Negative) Urine Glucose (UA) (Negative) mg/dL Urine Ketones (Negative) Urine Blood (Negative) Urine Nitrite (Negative) Urine Bilirubin (Negative) Urine Urobilinogen (0.2) mg/dL Ur Leukocyte Esterase (Negative) U Hyaline Cast (Auto) (0-2) /LPF Urine Microscopic RBC (0-5) /HPF Urine Microscopic WBC (0-5) /HPF Ur Epithelial Cells (None Seen) /HPF Urine Bacteria (None Seen) /HPF Urine Culture Reflexed (NO) Influenza Type A Ag (NEGATIVE) Influenza Type B Ag (NEGATIVE) RSV (PCR) (NEGATIVE) SARS-CoV-2 (PCR) (NEGATIVE) 06/26/24 06/26/24 06/26/24 Range/Units 22:42 22:42 22:49 WBC (3.98-10.04) x10^3/uL RBC (3.93-5.22) x10^6/uL Hgb (11.2-15.7) g/dL Hct (34.1-44.9) % MCV (79.4-94.8) fL MCH (25.6-32.2) pg MCHC (32.2-35.5) g/dL RDW (11.7-14.4) % Plt Count (182-369) x10^3/uL MPV (9.4-12.3) fL Gran % (34.0-71.1) % Immature Gran % (Auto) (0.001-0.429) % Nucleat RBC Rel Count (0.00-0.2) % Eos # (Auto) (0.04-0.36) x10^3/uL Immature Gran # (Auto) (0.001-0.031) x10^3u/L Absolute Lymphs (auto) (1.18-3.74) x10^3/uL Absolute Monos (auto) (0.24-0.86) x10^3/uL Absolute Nucleated RBC (0.00-0.012) x10^3u/L Lymphocytes % (19.3-51.7) % Monocytes % (4.7-12.5) % Eosinophils % (0.7-5.8) % Basophils % (0.1-1.2) % Absolute Granulocytes (1.56-6.13) x10^3/uL Basophils # (0.01-0.08) x10^3/uL Puncture Site pCO2 (35-45) mmHg pO2 (75-100) mmHg Base Excess (-2.0-2.0) O2 Saturation (94-100) g/dF ABG pH (7.35-7.45) ABG HCO3 (22-28) ABG O2 Sat (Measured) (95-100) % Shabbir Test A-a Gradient a/A Ratio Hemoglobin Carboxyhemoglobin (0.0-6.9) % THgb Methemoglobin (1.4-1.5) % Potassium (3.5-5.1) Temperature C POC O2 Flow Rate % Inspiratory BiPAP Expiratory BiPAP Sodium (135-145) mmol/L Chloride (98-107) mmol/L Carbon Dioxide (22-30) mmol/L Anion Gap (5-15) MEQ/L BUN (7-17) mg/dL Creatinine (0.52-1.04) mg/dL Estimated GFR ML/MIN Glucose (74-106) mg/dL POC Glucometer (74 to 106) mg/dL Lactic Acid (0.4-2.0) Calcium (8.4-10.2) mg/dL Magnesium (1.6-2.3) mg/dL Total Bilirubin (0.2-1.3) mg/dL AST (14-36) U/L ALT (0-35) U/L Alkaline Phosphatase (38-126) U/L Ammonia < 9 L (9-30) umol/L Troponin I (0.000-0.033) ng/mL NT-Pro-B Natriuret Pep (<300) pg/mL Serum Total Protein (6.3-8.2) g/dL Albumin (3.5-5.0) g/dL Procalcitonin (0.030-0.080) ng/mL Free T4 (0.78-2.19) ng/dL TSH 3rd Generation 4.569 (0.470-4.680) mIU/L Urine Color (Yellow) Urine Appearance (Clear) Urine pH (4.6-8.0) Ur Specific [place] (1.005-1.030) Urine Protein (Negative) Urine Glucose (UA) (Negative) mg/dL Urine Ketones (Negative) Urine Blood (Negative) Urine Nitrite (Negative) Urine Bilirubin (Negative) Urine Urobilinogen (0.2) mg/dL Ur Leukocyte Esterase (Negative) U Hyaline Cast (Auto) (0-2) /LPF Urine Microscopic RBC (0-5) /HPF Urine Microscopic WBC (0-5) /HPF Ur Epithelial Cells (None Seen) /HPF Urine Bacteria (None Seen) /HPF Urine Culture Reflexed (NO) Influenza Type A Ag NEGATIVE (NEGATIVE) Influenza Type B Ag NEGATIVE (NEGATIVE) RSV (PCR) NEGATIVE (NEGATIVE) SARS-CoV-2 (PCR) NEGATIVE (NEGATIVE) 06/26/24 06/27/24 06/27/24 Range/Units 22:49 00:10 02:12 WBC (3.98-10.04) x10^3/uL RBC (3.93-5.22) x10^6/uL Hgb (11.2-15.7) g/dL Hct (34.1-44.9) % MCV (79.4-94.8) fL MCH (25.6-32.2) pg MCHC (32.2-35.5) g/dL RDW (11.7-14.4) % Plt Count (182-369) x10^3/uL MPV (9.4-12.3) fL Gran % (34.0-71.1) % Immature Gran % (Auto) (0.001-0.429) % Nucleat RBC Rel Count (0.00-0.2) % Eos # (Auto) (0.04-0.36) x10^3/uL Immature Gran # (Auto) (0.001-0.031) x10^3u/L Absolute Lymphs (auto) (1.18-3.74) x10^3/uL Absolute Monos (auto) (0.24-0.86) x10^3/uL Absolute Nucleated RBC (0.00-0.012) x10^3u/L Lymphocytes % (19.3-51.7) % Monocytes % (4.7-12.5) % Eosinophils % (0.7-5.8) % Basophils % (0.1-1.2) % Absolute Granulocytes (1.56-6.13) x10^3/uL Basophils # (0.01-0.08) x10^3/uL Puncture Site RIGHT BRACHIAL pCO2 53 H (35-45) mmHg pO2 98 (75-100) mmHg Base Excess 14.8 H (-2.0-2.0) O2 Saturation 96.4 (94-100) g/dF ABG pH 7.49 H (7.35-7.45) ABG HCO3 40.4 H* (22-28) ABG O2 Sat (Measured) 98.8 (95-100) % Shabbir Test NOT APPLICABLE A-a Gradient 192 a/A Ratio 0.34 Hemoglobin 12.2 Carboxyhemoglobin 1.2 (0.0-6.9) % THgb Methemoglobin 1.2 L (1.4-1.5) % Potassium 3.6 (3.5-5.1) Temperature 37.0 C POC O2 Flow Rate 50 % Inspiratory BiPAP 16 Expiratory BiPAP 8 Sodium (135-145) mmol/L Chloride (98-107) mmol/L Carbon Dioxide (22-30) mmol/L Anion Gap (5-15) MEQ/L BUN (7-17) mg/dL Creatinine (0.52-1.04) mg/dL Estimated GFR ML/MIN Glucose (74-106) mg/dL POC Glucometer (74 to 106) mg/dL Lactic Acid 4.0 H (0.4-2.0) Calcium (8.4-10.2) mg/dL Magnesium (1.6-2.3) mg/dL Total Bilirubin (0.2-1.3) mg/dL AST (14-36) U/L ALT (0-35) U/L Alkaline Phosphatase (38-126) U/L Ammonia (9-30) umol/L Troponin I 0.065 H* (0.000-0.033) ng/mL NT-Pro-B Natriuret Pep (<300) pg/mL Serum Total Protein (6.3-8.2) g/dL Albumin (3.5-5.0) g/dL Procalcitonin (0.030-0.080) ng/mL Free T4 0.78 (0.78-2.19) ng/dL TSH 3rd Generation (0.470-4.680) mIU/L Urine Color (Yellow) Urine Appearance (Clear) Urine pH (4.6-8.0) Ur Specific [place] (1.005-1.030) Urine Protein (Negative) Urine Glucose (UA) (Negative) mg/dL Urine Ketones (Negative) Urine Blood (Negative) Urine Nitrite (Negative) Urine Bilirubin (Negative) Urine Urobilinogen (0.2) mg/dL Ur Leukocyte Esterase (Negative) U Hyaline Cast (Auto) (0-2) /LPF Urine Microscopic RBC (0-5) /HPF Urine Microscopic WBC (0-5) /HPF Ur Epithelial Cells (None Seen) /HPF Urine Bacteria (None Seen) /HPF Urine Culture Reflexed (NO) Influenza Type A Ag (NEGATIVE) Influenza Type B Ag (NEGATIVE) RSV (PCR) (NEGATIVE) SARS-CoV-2 (PCR) (NEGATIVE) 06/27/24 06/27/24 06/27/24 Range/Units 02:35 04:50 04:50 WBC (3.98-10.04) x10^3/uL RBC (3.93-5.22) x10^6/uL Hgb (11.2-15.7) g/dL Hct (34.1-44.9) % MCV (79.4-94.8) fL MCH (25.6-32.2) pg MCHC (32.2-35.5) g/dL RDW (11.7-14.4) % Plt Count (182-369) x10^3/uL MPV (9.4-12.3) fL Gran % (34.0-71.1) % Immature Gran % (Auto) (0.001-0.429) % Nucleat RBC Rel Count (0.00-0.2) % Eos # (Auto) (0.04-0.36) x10^3/uL Immature Gran # (Auto) (0.001-0.031) x10^3u/L Absolute Lymphs (auto) (1.18-3.74) x10^3/uL Absolute Monos (auto) (0.24-0.86) x10^3/uL Absolute Nucleated RBC (0.00-0.012) x10^3u/L Lymphocytes % (19.3-51.7) % Monocytes % (4.7-12.5) % Eosinophils % (0.7-5.8) % Basophils % (0.1-1.2) % Absolute Granulocytes (1.56-6.13) x10^3/uL Basophils # (0.01-0.08) x10^3/uL Puncture Site pCO2 (35-45) mmHg pO2 (75-100) mmHg Base Excess (-2.0-2.0) O2 Saturation (94-100) g/dF ABG pH (7.35-7.45) ABG HCO3 (22-28) ABG O2 Sat (Measured) (95-100) % Shabbir Test A-a Gradient a/A Ratio Hemoglobin Carboxyhemoglobin (0.0-6.9) % THgb Methemoglobin (1.4-1.5) % Potassium (3.5-5.1) Temperature C POC O2 Flow Rate % Inspiratory BiPAP Expiratory BiPAP Sodium (135-145) mmol/L Chloride (98-107) mmol/L Carbon Dioxide (22-30) mmol/L Anion Gap (5-15) MEQ/L BUN (7-17) mg/dL Creatinine (0.52-1.04) mg/dL Estimated GFR ML/MIN Glucose (74-106) mg/dL POC Glucometer (74 to 106) mg/dL Lactic Acid 3.1 H (0.4-2.0) Calcium (8.4-10.2) mg/dL Magnesium (1.6-2.3) mg/dL Total Bilirubin (0.2-1.3) mg/dL AST (14-36) U/L ALT (0-35) U/L Alkaline Phosphatase (38-126) U/L Ammonia (9-30) umol/L Troponin I 0.067 H* (0.000-0.033) ng/mL NT-Pro-B Natriuret Pep (<300) pg/mL Serum Total Protein (6.3-8.2) g/dL Albumin (3.5-5.0) g/dL Procalcitonin 2.830 H* (0.030-0.080) ng/mL Free T4 (0.78-2.19) ng/dL TSH 3rd Generation (0.470-4.680) mIU/L Urine Color (Yellow) Urine Appearance (Clear) Urine pH (4.6-8.0) Ur Specific [place] (1.005-1.030) Urine Protein (Negative) Urine Glucose (UA) (Negative) mg/dL Urine Ketones (Negative) Urine Blood (Negative) Urine Nitrite (Negative) Urine Bilirubin (Negative) Urine Urobilinogen (0.2) mg/dL Ur Leukocyte Esterase (Negative) U Hyaline Cast (Auto) (0-2) /LPF Urine Microscopic RBC (0-5) /HPF Urine Microscopic WBC (0-5) /HPF Ur Epithelial Cells (None Seen) /HPF Urine Bacteria (None Seen) /HPF Urine Culture Reflexed (NO) Influenza Type A Ag (NEGATIVE) Influenza Type B Ag (NEGATIVE) RSV (PCR) (NEGATIVE) SARS-CoV-2 (PCR) (NEGATIVE) 06/27/24 06/27/24 06/27/24 Range/Units 04:50 04:50 05:15 WBC 18.4 H (3.98-10.04) x10^3/uL RBC 3.58 L (3.93-5.22) x10^6/uL Hgb 10.6 L (11.2-15.7) g/dL Hct 33.5 L (34.1-44.9) % MCV 93.6 (79.4-94.8) fL MCH 29.6 (25.6-32.2) pg MCHC 31.6 L (32.2-35.5) g/dL RDW 17.7 H (11.7-14.4) % Plt Count 176 L (182-369) x10^3/uL MPV 10.7 (9.4-12.3) fL Gran % (34.0-71.1) % Immature Gran % (Auto) (0.001-0.429) % Nucleat RBC Rel Count (0.00-0.2) % Eos # (Auto) (0.04-0.36) x10^3/uL Immature Gran # (Auto) (0.001-0.031) x10^3u/L Absolute Lymphs (auto) (1.18-3.74) x10^3/uL Absolute Monos (auto) (0.24-0.86) x10^3/uL Absolute Nucleated RBC (0.00-0.012) x10^3u/L Lymphocytes % (19.3-51.7) % Monocytes % (4.7-12.5) % Eosinophils % (0.7-5.8) % Basophils % (0.1-1.2) % Absolute Granulocytes (1.56-6.13) x10^3/uL Basophils # (0.01-0.08) x10^3/uL Puncture Site pCO2 (35-45) mmHg pO2 (75-100) mmHg Base Excess (-2.0-2.0) O2 Saturation (94-100) g/dF ABG pH (7.35-7.45) ABG HCO3 (22-28) ABG O2 Sat (Measured) (95-100) % Shabbir Test A-a Gradient a/A Ratio Hemoglobin Carboxyhemoglobin (0.0-6.9) % THgb Methemoglobin (1.4-1.5) % Potassium 3.7 (3.5-5.1) Temperature C POC O2 Flow Rate % Inspiratory BiPAP Expiratory BiPAP Sodium 138 (135-145) mmol/L Chloride 93 L (98-107) mmol/L Carbon Dioxide 32 H (22-30) mmol/L Anion Gap 16.9 H (5-15) MEQ/L BUN 26 H (7-17) mg/dL Creatinine 1.32 H (0.52-1.04) mg/dL Estimated GFR 45.7 ML/MIN Glucose 180 H (74-106) mg/dL POC Glucometer (74 to 106) mg/dL Lactic Acid 2.7 H (0.4-2.0) Calcium 8.3 L (8.4-10.2) mg/dL Magnesium (1.6-2.3) mg/dL Total Bilirubin 0.50 (0.2-1.3) mg/dL AST 35 (14-36) U/L ALT 28 (0-35) U/L Alkaline Phosphatase 116 (38-126) U/L Ammonia (9-30) umol/L Troponin I (0.000-0.033) ng/mL NT-Pro-B Natriuret Pep (<300) pg/mL Serum Total Protein 7.0 (6.3-8.2) g/dL Albumin 3.8 (3.5-5.0) g/dL Procalcitonin (0.030-0.080) ng/mL Free T4 (0.78-2.19) ng/dL TSH 3rd Generation (0.470-4.680) mIU/L Urine Color (Yellow) Urine Appearance (Clear) Urine pH (4.6-8.0) Ur Specific [place] (1.005-1.030) Urine Protein (Negative) Urine Glucose (UA) (Negative) mg/dL Urine Ketones (Negative) Urine Blood (Negative) Urine Nitrite (Negative) Urine Bilirubin (Negative) Urine Urobilinogen (0.2) mg/dL Ur Leukocyte Esterase (Negative) U Hyaline Cast (Auto) (0-2) /LPF Urine Microscopic RBC (0-5) /HPF Urine Microscopic WBC (0-5) /HPF Ur Epithelial Cells (None Seen) /HPF Urine Bacteria (None Seen) /HPF Urine Culture Reflexed (NO) Influenza Type A Ag (NEGATIVE) Influenza Type B Ag (NEGATIVE) RSV (PCR) (NEGATIVE) SARS-CoV-2 (PCR) (NEGATIVE) 06/27/24 06/27/24 06/27/24 Range/Units 07:28 11:46 15:00 WBC (3.98-10.04) x10^3/uL RBC (3.93-5.22) x10^6/uL Hgb (11.2-15.7) g/dL Hct (34.1-44.9) % MCV (79.4-94.8) fL MCH (25.6-32.2) pg MCHC (32.2-35.5) g/dL RDW (11.7-14.4) % Plt Count (182-369) x10^3/uL MPV (9.4-12.3) fL Gran % (34.0-71.1) % Immature Gran % (Auto) (0.001-0.429) % Nucleat RBC Rel Count (0.00-0.2) % Eos # (Auto) (0.04-0.36) x10^3/uL Immature Gran # (Auto) (0.001-0.031) x10^3u/L Absolute Lymphs (auto) (1.18-3.74) x10^3/uL Absolute Monos (auto) (0.24-0.86) x10^3/uL Absolute Nucleated RBC (0.00-0.012) x10^3u/L Lymphocytes % (19.3-51.7) % Monocytes % (4.7-12.5) % Eosinophils % (0.7-5.8) % Basophils % (0.1-1.2) % Absolute Granulocytes (1.56-6.13) x10^3/uL Basophils # (0.01-0.08) x10^3/uL Puncture Site pCO2 (35-45) mmHg pO2 (75-100) mmHg Base Excess (-2.0-2.0) O2 Saturation (94-100) g/dF ABG pH (7.35-7.45) ABG HCO3 (22-28) ABG O2 Sat (Measured) (95-100) % Shabbir Test A-a Gradient a/A Ratio Hemoglobin Carboxyhemoglobin (0.0-6.9) % THgb Methemoglobin (1.4-1.5) % Potassium (3.5-5.1) Temperature C POC O2 Flow Rate % Inspiratory BiPAP Expiratory BiPAP Sodium (135-145) mmol/L Chloride (98-107) mmol/L Carbon Dioxide (22-30) mmol/L Anion Gap (5-15) MEQ/L BUN (7-17) mg/dL Creatinine (0.52-1.04) mg/dL Estimated GFR ML/MIN Glucose (74-106) mg/dL POC Glucometer 169 H 183 H (74 to 106) mg/dL Lactic Acid 1.6 (0.4-2.0) Calcium (8.4-10.2) mg/dL Magnesium (1.6-2.3) mg/dL Total Bilirubin (0.2-1.3) mg/dL AST (14-36) U/L ALT (0-35) U/L Alkaline Phosphatase (38-126) U/L Ammonia (9-30) umol/L Troponin I (0.000-0.033) ng/mL NT-Pro-B Natriuret Pep (<300) pg/mL Serum Total Protein (6.3-8.2) g/dL Albumin (3.5-5.0) g/dL Procalcitonin (0.030-0.080) ng/mL Free T4 (0.78-2.19) ng/dL TSH 3rd Generation (0.470-4.680) mIU/L Urine Color (Yellow) Urine Appearance (Clear) Urine pH (4.6-8.0) Ur Specific [place] (1.005-1.030) Urine Protein (Negative) Urine Glucose (UA) (Negative) mg/dL Urine Ketones (Negative) Urine Blood (Negative) Urine Nitrite (Negative) Urine Bilirubin (Negative) Urine Urobilinogen (0.2) mg/dL Ur Leukocyte Esterase (Negative) U Hyaline Cast (Auto) (0-2) /LPF Urine Microscopic RBC (0-5) /HPF Urine Microscopic WBC (0-5) /HPF Ur Epithelial Cells (None Seen) /HPF Urine Bacteria (None Seen) /HPF Urine Culture Reflexed (NO) Influenza Type A Ag (NEGATIVE) Influenza Type B Ag (NEGATIVE) RSV (PCR) (NEGATIVE) SARS-CoV-2 (PCR) (NEGATIVE) 06/27/24 Range/Units 16:31 WBC (3.98-10.04) x10^3/uL RBC (3.93-5.22) x10^6/uL Hgb (11.2-15.7) g/dL Hct (34.1-44.9) % MCV (79.4-94.8) fL MCH (25.6-32.2) pg MCHC (32.2-35.5) g/dL RDW (11.7-14.4) % Plt Count (182-369) x10^3/uL MPV (9.4-12.3) fL Gran % (34.0-71.1) % Immature Gran % (Auto) (0.001-0.429) % Nucleat RBC Rel Count (0.00-0.2) % Eos # (Auto) (0.04-0.36) x10^3/uL Immature Gran # (Auto) (0.001-0.031) x10^3u/L Absolute Lymphs (auto) (1.18-3.74) x10^3/uL Absolute Monos (auto) (0.24-0.86) x10^3/uL Absolute Nucleated RBC (0.00-0.012) x10^3u/L Lymphocytes % (19.3-51.7) % Monocytes % (4.7-12.5) % Eosinophils % (0.7-5.8) % Basophils % (0.1-1.2) % Absolute Granulocytes (1.56-6.13) x10^3/uL Basophils # (0.01-0.08) x10^3/uL Puncture Site pCO2 (35-45) mmHg pO2 (75-100) mmHg Base Excess (-2.0-2.0) O2 Saturation (94-100) g/dF ABG pH (7.35-7.45) ABG HCO3 (22-28) ABG O2 Sat (Measured) (95-100) % Shabbir Test A-a Gradient a/A Ratio Hemoglobin Carboxyhemoglobin (0.0-6.9) % THgb Methemoglobin (1.4-1.5) % Potassium (3.5-5.1) Temperature C POC O2 Flow Rate % Inspiratory BiPAP Expiratory BiPAP Sodium (135-145) mmol/L Chloride (98-107) mmol/L Carbon Dioxide (22-30) mmol/L Anion Gap (5-15) MEQ/L BUN (7-17) mg/dL Creatinine (0.52-1.04) mg/dL Estimated GFR ML/MIN Glucose (74-106) mg/dL POC Glucometer 195 H (74 to 106) mg/dL Lactic Acid (0.4-2.0) Calcium (8.4-10.2) mg/dL Magnesium (1.6-2.3) mg/dL Total Bilirubin (0.2-1.3) mg/dL AST (14-36) U/L ALT (0-35) U/L Alkaline Phosphatase (38-126) U/L Ammonia (9-30) umol/L Troponin I (0.000-0.033) ng/mL NT-Pro-B Natriuret Pep (<300) pg/mL Serum Total Protein (6.3-8.2) g/dL Albumin (3.5-5.0) g/dL Procalcitonin (0.030-0.080) ng/mL Free T4 (0.78-2.19) ng/dL TSH 3rd Generation (0.470-4.680) mIU/L Urine Color (Yellow) Urine Appearance (Clear) Urine pH (4.6-8.0) Ur Specific [place] (1.005-1.030) Urine Protein (Negative) Urine Glucose (UA) (Negative) mg/dL Urine Ketones (Negative) Urine Blood (Negative) Urine Nitrite (Negative) Urine Bilirubin (Negative) Urine Urobilinogen (0.2) mg/dL Ur Leukocyte Esterase (Negative) U Hyaline Cast (Auto) (0-2) /LPF Urine Microscopic RBC (0-5) /HPF Urine Microscopic WBC (0-5) /HPF Ur Epithelial Cells (None Seen) /HPF Urine Bacteria (None Seen) /HPF Urine Culture Reflexed (NO) Influenza Type A Ag (NEGATIVE) Influenza Type B Ag (NEGATIVE) RSV (PCR) (NEGATIVE) SARS-CoV-2 (PCR) (NEGATIVE) Microbiology 06/26/24 22:42 Blood Culture Gram Stain - Final Blood Accuchecks Date 06/27/24 Date 06/27/24 Time 12:00 Time 07:31 - Radiology Impressions Radiology Exams & Impressions: Radiology Procedures Category Date Time Status CHEST 1 VIEW (PORTABLE) Stat Exams 06/26/24 22:11 Completed CHEST WITHOUT CONTRAST [CT] Urgent Exams 06/27/24 10:30 Completed FOOT (MINIMUM 3 VIEWS) Urgent Exams 06/27/24 13:06 Completed HEAD WITHOUT CONTRAST [CT] Stat Exams 06/27/24 02:05 Completed LOWER LEG Urgent Exams 06/27/24 13:03 Completed VENOUS UNILAT/LIMITED EXTREMIT [US] Urgent Exams 06/27/24 13:08 Completed - Other Procedures and Tests Respiratory Therapy 06/26/24 22:08 BiPap/CPAP STAT 06/27/24 05:25 Oxygen Nasal Cannula 6 lpm Respiratory Therapy Assessment DAILY Assessment/Plan (1) Sepsis Current Visit: No Status: Acute Qualifiers: Sepsis type: sepsis due to unspecified organism Sepsis acute organ dysfunction status: without acute organ dysfunction Qualified Code(s): A41.9 - Sepsis, unspecified organism (2) Pneumonia Current Visit: No Status: Acute Code(s): J18.9 - PNEUMONIA, UNSPECIFIED ORGANISM (3) UTI (urinary tract infection) Current Visit: No Status: Resolved Code(s): N39.0 - URINARY TRACT INFECTION, SITE NOT SPECIFIED (4) DVT prophylaxis Current Visit: No Status: Acute Code(s): Z29.9 - ENCOUNTER FOR PROPHYLACTIC MEASURES, UNSPECIFIED (5) COPD exacerbation Current Visit: No Status: Acute Code(s): J44.1 - CHRONIC OBSTRUCTIVE PULMONARY DISEASE W (ACUTE) EXACERBATION (6) Generalized weakness Current Visit: No Status: Resolved Code(s): R53.1 - WEAKNESS (7) Leukocytosis Current Visit: Yes Status: Acute Code(s): D72.829 - ELEVATED WHITE BLOOD CELL COUNT, UNSPECIFIED (8) COPD with exacerbation Current Visit: No Status: Acute Code(s): J44.1 - CHRONIC OBSTRUCTIVE PULMONARY DISEASE W (ACUTE) EXACERBATION (9) Acute on chronic respiratory failure with hypoxemia Current Visit: No Status: Chronic Code(s): J96.21 - ACUTE AND CHRONIC RESPIRATORY FAILURE WITH HYPOXIA (10) Tobacco abuse Current Visit: No Status: Chronic Code(s): Z72.0 - TOBACCO USE (11) Neuropathy Current Visit: No Status: Chronic Code(s): G62.9 - POLYNEUROPATHY, UNSPECIFIED (12) Pain in right foot Current Visit: No Status: Acute Code(s): M79.671 - PAIN IN RIGHT FOOT (13) Deformity of foot Current Visit: No Status: Acute Assessment & Plan: Patient examination and evaluation Radiographs reviewed and discussed with patient demonstrating no changes to hardware on previous follow up in outpatient setting. No obvious fractures dislocations or subluxations. 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 Pain localized to lateral aspect of ankle joint where there does appear to be acute swelling and potential sprain vs tear of ATFL ligament evidenced by gaping on mortise views of the lower extremity radiographs. Positive anterior drawer and talar tilt. Patient at this time would likely benefit from a CAM walker for ambulation. Compression stocking provided as well. Code(s): M21.969 - UNSPECIFIED ACQUIRED DEFORMITY OF UNSPECIFIED LOWER LEG (14) LISA (acute kidney injury) Current Visit: No Status: Acute Code(s): N17.9 - ACUTE KIDNEY FAILURE, UNSPECIFIED (15) COPD (chronic obstructive pulmonary disease) Current Visit: No Status: Acute (16) CHF (congestive heart failure) Current Visit: No Status: Acute Code(s): I50.9 - HEART FAILURE, UNSPECIFIED (17) Type 2 diabetes mellitus Current Visit: No Status: Acute
[2024-06-27] MEDS ORDERED: NON-FORMULARY ITEM (Losartan Potassium [Losartan Potassium] 25 MG Tablet) PO SCH (18:00)
[2024-06-27] MEDS: Cozaar 50 MG PO SCH (18:51)
[2024-06-27 20:52] LABS: ALBUMIN 3.5 g/dL (3.5-5.0); ANION GAP 14.9 MEQ/L (5-15); BILIRUBIN,TOTAL 0.4 mg/dL (0.2-1.3); Calcium 8.2 mg/dL (8.4-10.2); Creatinine 1 1.17 mg/dL (0.52-1.04); EST GLOMERULAR FILTRATION RATE 52.8 ML/MIN; Potassium 3.7 mmol/L (3.5-5.1); Total Protein 6.4 g/dL (6.3-8.2)
[2024-06-27] MEDS: Abilify 10 MG PO SCH (21:13)
[2024-06-27] MEDS: VANCOMYCIN 1.25 GM/250 ML BAG 1.25 GM/250 ML PIGGYBACK IV SCH (21:14)
[2024-06-27] MEDS: DESYREL 50 MG PO SCH (21:14)
[2024-06-27] MEDS ORDERED: LEVOFLOXACIN 750MG/150ML D5W 750 MG/150 ML BAG IV ONE (22:00)
[2024-06-27] MEDS ORDERED: NON-FORMULARY ITEM (Trazodone Hcl [Trazodone Hcl] 100 MG Tablet) PO SCH (22:00)
--- NOTE | 2024-06-28 05:17 | PCM.NOTE ---
Date and Time: 06/28/24 0512 Subjective Assessment: Ms. Ruiz is a 63-year-old woman with significant medical comorbidities, including COPD on chronic 3 L oxygen, HFpEF, type 2 diabetes mellitus, hypertension, and hypothyroidism, who presents from a custodial with reported dyspnea, somnolence, and fever. She was noted to have hypoxia with SpO2 of 88% and a fever up to 103F at the custodial, with a maximum temperature of 105.3F recorded in the ED. Initial management included BiPAP for respiratory support, now transitioned to 6 L nasal cannula. She meets criteria for sepsis, with leukocytosis of 18.4 and neutrophilic predominance, as well as elevated procalcitonin (2.83), though the source remains unclear. While pneumonia is a consideration given her COPD and reported hypoxia, chest imaging is unrevealing aside from chronic changes and mild atelectasis. She also has a small area of cellulitis on the right nice, though this appears unlikely to fully account for her severe systemic response. No evidence of urinary or abdominal source, and a respiratory viral panel is negative. Her clinical picture is further complicated by acute encephalopathy, likely multifactorial in the setting of sepsis and chronic hypoxic respiratory failure, though hypercapnia does not appear to be contributing currently. CT head was negative for acute processes. Given her chronic CO2 retention, care is being taken to avoid excessive oxygenation, and steroids are being cautiously tapered due to prolonged use beyond her last hospitalization discharge plan. She is currently on Levaquin and vancomycin to broadly cover potential sources of infection while cultures are pending. 06/28/24: Patient remains febrile with a temperature of 102F this morning but reports feeling overall improved. Denies any worsening dyspnea or confusion, both at baseline. She is on IV vancomycin and levofloxacin with improving labs; WBC has decreased from 18.[address] chest shows no acute findings. Right nice cellulitis persists and has extended beyond marked borders. Venous Doppler of the right lower extremity is negative for DVT. Right foot X-ray shows chronic hardware changes, including a fractured talotarsometatarsal screw and signs of loosening at the tibia/fibula screw. Podiatry reviewed imaging and confirmed no acute hardware changes or fractures; chronic talonavicular joint hardware remains stable and has been asymptomatic historically. Patient now has right lateral ankle pain with swelling. Imaging and exam suggest possible ATFL sprain or tear, with gapping noted on mortise views and positive anterior drawer and talar tilt tests. Podiatry recommends CAM boot for ambulation and compression stocking provided. - Review of Systems Constitutional: Fever, Weakness Eyes: No Symptoms Ears, Nose, & Throat: No Symptoms Respiratory: Short Of Breath Cardiac: No Symptoms Abdominal/Gastrointestinal: No Symptoms Genitourinary Symptoms: No Symptoms Musculoskeletal: No Symptoms Skin: Cellulitis (right leg) Neurological: No Symptoms Psychological: No Symptoms Endocrine: No Symptoms Hematologic/Lymphatic: No Symptoms Immunological/Allergic: No Symptoms Objective Exam General Appearance: no apparent distress Neurologic Exam: alert, oriented x 3, cooperative Skin Exam: other (RLE edema/erythema- extending beyond marked border now to mid thigh/right foot) Wound Assessment: Skin/Wound Assessment Wound/Incision Assessment Start: 06/27/24 04:48 Text: Status: Active Freq: Q6H Protocol: Document 06/28/24 02:00 FRANCES (Rec: 06/28/24 02:07 AK [id number]) Wound/Incision Assessment Left Lower Thigh Wound Assessment Shift Assessment Wound Type Abrasion Wound Stage Non Pressure Wound Drainage Amount None Surrounding Tissue Bright Red Comment scabbed, depressed wound to left lower thigh right lower leg Wound Assessment Shift Assessment Wound Type cellulitis Wound Stage Non Pressure Wound Drainage Amount None Wound Bed Greatest Portion Red (Granulation) Surrounding Tissue [place],Bright Red Comment red/hot area to right lower leg, redness has expanded beyond original markings right groin Wound Assessment Shift Assessment Wound Type excoriation Wound Stage Non Pressure Wound Drainage Amount Minimal Drainage Description yeasty Wound Bed Greatest Portion Red (Granulation) Surrounding Tissue Bright Red Comment nystatin cream BID Wound Photo Photo Taken No Eye Exam: PERRL Ears, Nose, Throat Exam: normal ENT inspection Neck Exam: normal inspection Respiratory Exam: normal breath sounds, diminished breath sounds Cardiovascular Exam: regular rate/rhythm, normal heart sounds Gastrointestinal/Abdomen Exam: soft, normal bowel sounds Extremity Exam: swelling (RLE) Back Exam: normal inspection Pelvic Exam: deferred Rectal Exam: deferred Objective Data Vital Signs: Vital Signs - 24 hr Temp Pulse Resp BP Pulse Ox 06/28/24 04:00 101.3 F 83 24 169/72 94 L 06/27/24 23:26 95/51 06/27/24 23:19 99.0 F 72 15 82/46 95 06/27/24 19:43 98.4 F 81 19 100/53 93 L 06/27/24 19:26 80 18 95 06/27/24 18:44 79 107/50 06/27/24 16:00 98.8 F 83 20 90/49 97 06/27/24 14:17 101.7 F 84 21 100/56 94 L 06/27/24 11:10 103.1 F 06/27/24 09:56 103.1 F 06/27/24 09:08 102.6 F 06/27/24 08:02 93 L 06/27/24 07:16 99.2 F 90 18 140/60 92 L 06/27/24 05:52 100.9 F 06/27/24 05:25 84 18 96 Pain Assessment - Last Documented Pain Intensity 0 Pain Scale Used 0-10 Pain Scale Intake and Output: Intake & Output 06/25/24 06/26/24 06/27/24 06/28/24 11:59 11:59 11:59 11:59 Intake Total 120 3524 Output Total 125 225 Balance -5 3299 Weight 107 kg Lab Results: Lab Results-Last 24 Hours 06/27/24 06/27/24 06/27/24 Range/Units 04:50 04:50 04:50 WBC 18.4 H (3.98-10.04) x10^3/uL RBC 3.58 L (3.93-5.22) x10^6/uL Hgb 10.6 L (11.2-15.7) g/dL Hct 33.5 L (34.1-44.9) % MCV 93.6 (79.4-94.8) fL MCH 29.6 (25.6-32.2) pg MCHC 31.6 L (32.2-35.5) g/dL RDW 17.7 H (11.7-14.4) % Plt Count 176 L (182-369) x10^3/uL MPV 10.7 (9.4-12.3) fL Sodium (135-145) mmol/L Potassium (3.5-5.1) mmol/L Chloride (98-107) mmol/L Carbon Dioxide (22-30) mmol/L Anion Gap (5-15) MEQ/L BUN (7-17) mg/dL Creatinine (0.52-1.04) mg/dL Estimated GFR ML/MIN Glucose (74-106) mg/dL POC Glucometer (74 to 106) mg/dL Lactic Acid (0.4-2.0) Calcium (8.4-10.2) mg/dL Total Bilirubin (0.2-1.3) mg/dL AST (14-36) U/L ALT (0-35) U/L Alkaline Phosphatase (38-126) U/L Troponin I 0.067 H* (0.000-0.033) ng/mL Serum Total Protein (6.3-8.2) g/dL Albumin (3.5-5.0) g/dL Procalcitonin 2.830 H* (0.030-0.080) ng/mL 06/27/24 06/27/24 06/27/24 Range/Units 04:50 05:15 07:28 WBC (3.98-10.04) x10^3/uL RBC (3.93-5.22) x10^6/uL Hgb (11.2-15.7) g/dL Hct (34.1-44.9) % MCV (79.4-94.8) fL MCH (25.6-32.2) pg MCHC (32.2-35.5) g/dL RDW (11.7-14.4) % Plt Count (182-369) x10^3/uL MPV (9.4-12.3) fL Sodium 138 (135-145) mmol/L Potassium 3.7 (3.5-5.1) mmol/L Chloride 93 L (98-107) mmol/L Carbon Dioxide 32 H (22-30) mmol/L Anion Gap 16.9 H (5-15) MEQ/L BUN 26 H (7-17) mg/dL Creatinine 1.32 H (0.52-1.04) mg/dL Estimated GFR 45.7 ML/MIN Glucose 180 H (74-106) mg/dL POC Glucometer 169 H (74 to 106) mg/dL Lactic Acid 2.7 H (0.4-2.0) Calcium 8.3 L (8.4-10.2) mg/dL Total Bilirubin 0.50 (0.2-1.3) mg/dL AST 35 (14-36) U/L ALT 28 (0-35) U/L Alkaline Phosphatase 116 (38-126) U/L Troponin I (0.000-0.033) ng/mL Serum Total Protein 7.0 (6.3-8.2) g/dL Albumin 3.8 (3.5-5.0) g/dL Procalcitonin (0.030-0.080) ng/mL 06/27/24 06/27/24 06/27/24 Range/Units 11:30 11:46 15:00 WBC (3.98-10.04) x10^3/uL RBC (3.93-5.22) x10^6/uL Hgb (11.2-15.7) g/dL Hct (34.1-44.9) % MCV (79.4-94.8) fL MCH (25.6-32.2) pg MCHC (32.2-35.5) g/dL RDW (11.7-14.4) % Plt Count (182-369) x10^3/uL MPV (9.4-12.3) fL Sodium 136 (135-145) mmol/L Potassium 3.7 (3.5-5.1) mmol/L Chloride 94 L (98-107) mmol/L Carbon Dioxide 31 H (22-30) mmol/L Anion Gap 14.9 (5-15) MEQ/L BUN 23 H (7-17) mg/dL Creatinine 1.17 H (0.52-1.04) mg/dL Estimated GFR 52.8 ML/MIN Glucose 198 H (74-106) mg/dL POC Glucometer 183 H (74 to 106) mg/dL Lactic Acid 1.6 (0.4-2.0) Calcium 8.2 L (8.4-10.2) mg/dL Total Bilirubin 0.40 (0.2-1.3) mg/dL AST 35 (14-36) U/L ALT 30 (0-35) U/L Alkaline Phosphatase 108 (38-126) U/L Troponin I (0.000-0.033) ng/mL Serum Total Protein 6.4 (6.3-8.2) g/dL Albumin 3.5 (3.5-5.0) g/dL Procalcitonin (0.030-0.080) ng/mL 06/27/24 06/27/24 Range/Units 16:31 20:36 WBC (3.98-10.04) x10^3/uL RBC (3.93-5.22) x10^6/uL Hgb (11.2-15.7) g/dL Hct (34.1-44.9) % MCV (79.4-94.8) fL MCH (25.6-32.2) pg MCHC (32.2-35.5) g/dL RDW (11.7-14.4) % Plt Count (182-369) x10^3/uL MPV (9.4-12.3) fL Sodium (135-145) mmol/L Potassium (3.5-5.1) mmol/L Chloride (98-107) mmol/L Carbon Dioxide (22-30) mmol/L Anion Gap (5-15) MEQ/L BUN (7-17) mg/dL Creatinine (0.52-1.04) mg/dL Estimated GFR ML/MIN Glucose (74-106) mg/dL POC Glucometer 195 H 158 H (74 to 106) mg/dL Lactic Acid (0.4-2.0) Calcium (8.4-10.2) mg/dL Total Bilirubin (0.2-1.3) mg/dL AST (14-36) U/L ALT (0-35) U/L Alkaline Phosphatase (38-126) U/L Troponin I (0.000-0.033) ng/mL Serum Total Protein (6.3-8.2) g/dL Albumin (3.5-5.0) g/dL Procalcitonin (0.030-0.080) ng/mL Radiology Exams: Radiology Procedures Category Date Time Status CHEST 1 VIEW (PORTABLE) Stat Exams 06/26/24 22:11 Completed CHEST WITHOUT CONTRAST [CT] Urgent Exams 06/27/24 10:30 Completed FOOT (MINIMUM 3 VIEWS) Urgent Exams 06/27/24 13:06 Completed HEAD WITHOUT CONTRAST [CT] Stat Exams 06/27/24 02:05 Completed LOWER LEG Urgent Exams 06/27/24 13:03 Completed VENOUS UNILAT/LIMITED EXTREMIT [US] Urgent Exams 06/27/24 13:08 Completed Medications: Medications Generic Name Dose Route Start Last Admin Trade Name Freq PRN Reason Stop Dose Admin Acetaminophen 650 mg 06/27/24 04:22 Acetaminophen 650 Mg Supp.Rect MT 07/27/24 04:21 Q4H PRN PRN PAIN AND/OR FEVER Acetaminophen 650 mg 06/27/24 09:16 06/28/24 03:35 Acetaminophen 325 Mg Tablet PO 07/27/24 09:15 650 mg Q4H PRN PRN Administration PAIN AND/OR FEVER Albuterol/Ipratropium 3 ml 06/27/24 05:01 06/27/24 19:24 Ipratropium/Albuterol Sulfate 3 Ml Ampul.Neb IH 07/27/24 05:00 3 ml Q4H PRN PRN Administration SHORTNESS OF BREATH/WHEEZING Allopurinol 100 mg 06/27/24 10:00 06/27/24 21:13 Allopurinol 100 Mg Tablet PO 07/27/24 09:59 100 mg BID KIKO Administration Aripiprazole 10 mg 06/27/24 22:00 06/27/24 21:13 Aripiprazole 10 Mg Tablet PO 07/27/24 21:59 10 mg HS KIKO Administration Carbamazepine 200 mg 06/27/24 10:00 06/27/24 21:16 Carbamazepine 200 Mg Tablet PO 07/27/24 09:59 200 mg BID KIKO Administration Carvedilol 6.25 mg 06/27/24 10:00 06/27/24 21:13 Carvedilol 6.25 Mg Tablet PO 07/27/24 09:59 6.25 mg BID KIKO Administration Duloxetine HCl 120 mg 06/27/24 10:00 06/27/24 10:02 Duloxetine Hcl 30 Mg Cap PO 07/27/24 09:59 120 mg DAILY KIKO Administration Enoxaparin Sodium 40 mg 06/27/24 10:00 06/27/24 10:03 Enoxaparin Sodium 40 Mg/0.4 Ml Syringe SQ 07/27/24 09:59 40 mg DAILY KIKO Administration Ferrous Sulfate 325 mg 06/27/24 10:00 06/27/24 10:02 Ferrous Sulfate 325 Mg Tablet PO 07/27/24 09:59 325 mg DAILY KIKO Administration Vancomycin HCl 1.25 gm in 250 mls @ 166.667 mls/hr 06/27/24 22:00 06/27/24 21:14 Vancomycin 1.25 Gm/250 Ml Bag IV 06/30/24 21:59 166.667 mls/hr Q12HT KIKO Administration Sodium Chloride 1,000 mls @ 75 mls/hr 06/27/24 10:15 06/27/24 20:21 Sodium Chloride 0.9% 1000 Ml IV 07/27/24 10:14 75 mls/hr .[id number] KIKO Administration Levofloxacin/Dextrose 750 mg in 150 mls @ 100 mls/hr 06/28/24 10:00 Levofloxacin 750mg/150ml D5w IV 07/28/24 09:59 Q48H KIKO Insulin Glargine 30 unit 06/27/24 10:00 06/27/24 10:05 Insulin Glargine 1 Unit SQ 07/27/24 09:59 30 unit QAM KIKO Administration Insulin Human Regular 0 unit 06/27/24 04:22 06/27/24 21:14 Insulin Regular, Human 1 Unit SQ 07/27/24 04:21 3 unit UD PRN Administration HYPERGLYCEMIA Levothyroxine Sodium 125 mcg 06/27/24 10:00 06/27/24 10:03 Levothyroxine Sodium 125 Mcg Tablet PO 07/27/24 09:59 125 mcg DAILY KIKO Administration Losartan Potassium 25 mg 06/27/24 18:00 06/27/24 18:51 Losartan Potassium 50 Mg Tablet PO 07/27/24 17:59 Not Given EVENING MEAL KIKO Miscellaneous Information 1 each 06/27/24 07:30 Medication Intervention 1 Each Each 07/27/24 07:29 .RN TO CHECK KIKO Nystatin 1 gm 06/27/24 11:44 06/27/24 21:14 Nystatin Cream 30 Gm 30 Gm Tube TOP 07/27/24 11:43 1 gm BID KIKO Administration Ondansetron HCl 4 mg 06/27/24 04:22 Ondansetron Hcl 4 Mg/2 Ml Vial IV 07/27/24 04:21 Q6H PRN PRN NAUSEA/VOMITING Potassium Chloride 20 meq 06/28/24 10:00 Potassium Chloride Tab 10 Meq Tab PO 07/28/24 09:59 DAILY KIKO Prednisone 15 mg 06/27/24 10:00 06/27/24 10:03 Prednisone 5 Mg Tablet PO 07/27/24 09:59 15 mg DAILY KIKO Administration Pregabalin 300 mg 06/27/24 10:00 06/27/24 21:14 Pregabalin 150 Mg Capsule PO 07/27/24 09:59 300 mg BID KIKO Administration Trazodone HCl 200 mg 06/27/24 22:00 06/27/24 21:14 Trazodone Hcl 50 Mg Tablet PO 07/27/24 21:59 200 mg HS KIKO Administration Discontinued Medications Generic Name Dose Route Start Last Admin Trade Name Graciela PRN Reason Stop Dose Admin Acetaminophen Confirm 06/26/24 22:10 Acetaminophen 325mg Suppository Administered 06/26/24 22:11 Dose 325 mg .ROUTE .STK-MED ONE Acetaminophen 325 mg 06/26/24 22:11 06/26/24 22:17 Acetaminophen 650 Mg Supp.Rect MT 06/26/24 22:12 Not Given STAT ONE Acetaminophen 325 mg 06/26/24 22:15 06/26/24 22:17 Acetaminophen 325mg Suppository MT 06/26/24 22:16 325 mg STAT STA Administration Acetaminophen 650 mg 06/26/24 22:22 Acetaminophen 1,000 Mg/100 Ml Ml IV 06/26/24 22:23 STAT ONE Sodium Chloride 1,000 mls @ 100 mls/hr 06/26/24 22:30 06/26/24 22:31 Sodium Chloride 0.9% 1000 Ml IV 07/26/24 22:29 100 mls/hr .Q10H KIKO Administration Acetaminophen 750 mg in 75 mls @ 300 mls/hr 06/26/24 22:45 06/26/24 23:25 Ofirmev IV 06/26/24 22:59 Not Given 1HRPRIOR ONE Acetaminophen 1,000 mg in 100 mls @ 400 mls/hr 06/26/24 23:24 06/26/24 23:46 Ofirmev IV 06/26/24 23:38 Infused 1HRPRIOR ONE Infusion Levofloxacin/Dextrose 500 mg in 100 mls @ 100 mls/hr 06/26/24 23:27 06/27/24 00:45 Levofloxacin 500mg/100ml D5w IV 06/27/24 00:26 Infused STAT STA Infusion Levofloxacin/Dextrose Confirm 06/26/24 23:44 Levofloxacin 500mg/100ml D5w Administered 06/26/24 23:45 Dose 500 mg in 100 mls @ ud IV .STK-MED ONE Acetaminophen 1,000 mg in 100 mls @ 400 mls/hr 06/27/24 03:33 06/27/24 03:53 Ofirmev IV 06/27/24 03:47 Infused 1HRPRIOR ONE Infusion Sodium Chloride Confirm 06/26/24 22:29 Sodium Chloride 0.9% 1000 Ml Administered 06/26/24 22:30 Dose 1,000 mls @ ud .ROUTE .STK-MED ONE Sodium Chloride Confirm 06/27/24 01:08 Sodium Chloride 0.9% 1000 Ml Administered 06/27/24 01:09 Dose 1,000 mls @ ud .ROUTE .STK-MED ONE Sodium Chloride 1,000 mls @ 100 mls/hr 06/27/24 04:22 06/27/24 05:33 Sodium Chloride 0.9% 1000 Ml IV 07/27/24 04:21 Not Given .Q10H KIKO Vancomycin HCl 1 gm in 200 mls @ 125 mls/hr 06/27/24 05:15 06/27/24 05:25 Vancomycin 1 Gram/200 Ml Bag IV 07/27/24 05:14 125 mls/hr Q12H KIKO Administration Acetaminophen Confirm 06/26/24 23:22 Ofirmev Administered 06/26/24 23:23 Dose 100 mls @ ud IV .STK-MED ONE Acetaminophen Confirm 06/27/24 03:34 Ofirmev Administered 06/27/24 03:35 Dose 100 mls @ ud IV .STK-MED ONE Levofloxacin/Dextrose 750 mg in 150 mls @ 100 mls/hr 06/27/24 10:09 06/27/24 15:10 Levofloxacin 750mg/150ml D5w IV 06/27/24 11:38 Not Given STAT STA Levofloxacin/Dextrose 750 mg in 150 mls @ 100 mls/hr 06/27/24 22:00 Levofloxacin 750mg/150ml D5w IV 06/27/24 23:29 ONCE ONE Sodium Chloride 500 mls @ 500 mls/hr 06/27/24 11:35 06/27/24 11:40 Sodium Chloride 0.9% 500 Ml IV 06/27/24 12:34 500 mls/hr .Q1H ONE Administration Non-Formulary Medication 50 mg 06/27/24 18:00 Torsemide [Torsemide] PO 07/27/24 17:59 EVENING MEAL KIKO Non-Formulary Medication 100 mg 06/27/24 10:00 Torsemide [Torsemide] PO 07/27/24 09:59 DAILY KIKO Non-Formulary Medication 1 each 06/27/24 05:11 06/27/24 09:56 Pharmacy Dose Request: Vancomycin 1 Each IV 06/27/24 05:12 Not Given STAT ONE Potassium Chloride 40 meq 06/27/24 10:00 06/27/24 10:03 Potassium Chloride Tab 10 Meq Tab PO 07/27/24 09:59 40 meq QID KIKO Administration Multi-Disciplinary Progress Notes: Multi-Disciplinary Progress Notes 06/27/24 11:12 Case Management Note by Alicja Chambers PATIENT HAS [facility]. THEY WERE NOTIFED OF PATIENT ADMISSION. THEY WILL NEED NOTIFIED AT TIME OF DC AT [phone]. THEY WILL NEED FAXED THE DC INSTRUCTION, DC MED LIST AND DC SUMMARY (IF AVAILABLE) TO [phone]. Initialized on 06/27/24 11:12 - END OF NOTE 06/27/24 07:27 Pharmacy Note by Jerry Tran Pharmacokinetic dosing service Date: 06/27/24 Time: 729 Objective: Patient: TUCKER RUIZ Floor: [address] Age: 63 yo Serum creatinine: 0.93 mg/dL Height: 65 Inches Weight (kg): 107 Diagnosis: FEVER, BILATERAL PNEUMONIA Relevant medical/social history: ALF , COPD Cultures and sensitivities: Other labs: Assessment: IBW (kg): 57.00 Dosing wt(kg): 107 Estimated Creatinine clearance (ml/min): 56.4 CRCL method: Cockcroft and Gault using ibw(default). Drug selected: Vancomycin Loading dose (mg): 0 Vd (liters): 85.6 (factor used: 0.8 L/kg) Evaristo (hr-1): 0.051 Half life (hrs): 13.59 Recommended dose: 1250 mg Interval: 12 hrs Infusion time (hrs): 1.5 Predicted peak (mcg/mL): 30.7 Predicted trough (mcg/mL): 17.97 Total body weight is being used for vancomycin dosing. Renal function is stable [ ] /unstable [ ] Recommendations: Give Vancomycin 1250 mg q 12 hrs with an expected Cpeak of 30.7 mcg/ml and an expected Ctrough of 17.97 mcg/ml Renal dosing of other antibiotics (review renal dosing of other medications and list guidelines here): N/A Thank you for the consult, will continue to follow. Signature: SHERYL SMITH 06/29/2024 0930 Initialized on 06/27/24 07:27 - END OF NOTE Assessment/Plan (1) Sepsis Current Visit: Yes Status: Acute Assessment & Plan: -Presenting with fever up to 105.3F, leukocytosis (WBC 18.4, 88% neutrophils- trending down now at 13.4), procalcitonin 2.83, lactate elevated -unknown source -No hypotension currently -CXR: Mild bibasilar subsegmental atelectasis and scarring, no consolidation -CT chest: Chronic bronchovascular crowding, unchanged -UA: Negative -RVP: Negative for COVID/Flu/RSV -Blood cultures: gram + cocci in chains x1 on stain -Continue Levaquin for gram-negative coverage -Continue vancomycin for cellulitis/MRSA coverage -Monitor WBC, procalcitonin, and vitals -Lactate now WNL -Repeat blood cultures if fevers persist beyond 48-72 hours -Consider ID consult if no clear source established 06/28/24: -Patient febrile at 102 this morning -Cellulitis worsening on right nice- exceeding marked borders -Blood cultures with gram+ cocci in chains pending final sensitivity -WBC reviewed and improved at 13.4<18.4 -Now at baseline oxygen of 4L NC -Continue levaquin/vanc (2) Encephalopathy Current Visit: Yes Status: Acute Assessment & Plan: -CT head: No acute intracranial process -ABG: Compensated chronic hypercapnia, no acute CO2 retention -TSH: Normal -Patient appears to now be at baseline -Treat underlying sepsis as above -Monitor neurologic status closely -Hold Xanax -Consider repeat ABG if significant lethargy/confusion Code(s): G93.40 - ENCEPHALOPATHY, UNSPECIFIED (3) COPD exacerbation Current Visit: Yes Status: Acute Assessment & Plan: -Supplemental oxygen with goal spo2 > 91 Chronic O2 at 4 L; currently on 4 L at baseline -Resume Trelegy inhaler -Resume DuoNeb q4h PRN Taper prednisone to 15 mg daily from chronic 20 mg Code(s): J44.1 - CHRONIC OBSTRUCTIVE PULMONARY DISEASE W (ACUTE) EXACERBATION (4) Type 2 diabetes mellitus Current Visit: Yes Status: Acute Assessment & Plan: -Continue Lantus 25 units daily -Moderate-dose sliding scale insulin -Monitor glucose closely with noted poor appetite -ADA diet (5) Heart failure with preserved ejection fraction Current Visit: Yes Status: Acute Assessment & Plan: -BNP down from prior elevated level in March, currently within normal limits -No clinical signs of volume overload -Received IV fluids in ED for lactate elevation -Hold torsemide 100 mg daily and 50 mg evening dose -Monitor volume status clinically and via daily weights -Resume diuretics if evidence of overload Code(s): I50.30 - UNSPECIFIED DIASTOLIC (CONGESTIVE) HEART FAILURE (6) HTN (hypertension) Current Visit: Yes Status: Acute Assessment & Plan: -Resume carvedilol 6.25 mg BID and losartan 25 mg QHS -Monitor BP closely -Continue to hold diuretics for now Code(s): I10 - ESSENTIAL (PRIMARY) HYPERTENSION (7) Cellulitis of right lower leg Current Visit: Yes Status: Acute Assessment & Plan: -Small area of erythema over right anterior nice now exceeding marked borders to mid thigh/foot -Venous Doppler: Negative for DVT -Right foot X-ray shows chronic hardware changes, including a fractured talotarsometatarsal screw and signs of loosening at the tibia/fibula screw -Podiatry consulted and reviewed imaging and confirmed no acute hardware changes or fractures; chronic talonavicular joint hardware remains stable and has been asymptomatic historically. Patient now has right lateral ankle pain with swelling. Imaging and exam suggest possible ATFL sprain or tear, with gapping noted on mortise views and positive anterior drawer and talar tilt tests. Podiatry recommends CAM boot for ambulation and compression stocking provided. -No overt soft tissue gas or abscess on exam -Continue vancomycin/levaquin -Monitor for progression Code(s): L03.115 - CELLULITIS OF RIGHT LOWER LIMB (8) Hypothyroid Current Visit: Yes Status: Acute Assessment & Plan: -continue levothyroxine - TSH WNL Code(s): E03.9 - HYPOTHYROIDISM, UNSPECIFIED (9) Panic disorder Current Visit: No Status: Acute Assessment & Plan: -Resume home Tegretol, Abilify, Cymbalta, trazodone -Hold Xanax due to somnolence Code(s): F41.0 - PANIC DISORDER [EPISODIC PAROXYSMAL ANXIETY] (10) Pneumonia Current Visit: No Status: Acute Assessment & Plan: -see sepsis plan VTE: lovenox PPI: protonix Dispo: 2-3 days Code status: Full code Code(s): J18.9 - PNEUMONIA, UNSPECIFIED ORGANISM (11) Bacteremia Current Visit: Yes Status: Acute Assessment & Plan: -see sepsis above Code(s): R78.81 - BACTEREMIA
[2024-06-28 05:24] LABS: Absolute Neutrophil Ct (ANC) 11.16 x10^3/uL (1.56-6.13); BASOPHIL % 0.3 % (0.1-1.2); Basophil (Absolute #) 0.04 x10^3/uL (0.01-0.08); Eosinophil % 0.4 % (0.7-5.8); Eosinophil (Absolute #) 0.06 x10^3/uL (0.04-0.36); Hematocrit 31.1 % (34.1-44.9); Hemoglobin 9.7 g/dL (11.2-15.7); IMMATURE GRAN # 0.34 x10^3u/L (0.001-0.031); IMMATURE GRAN % 2.5 % (0.001-0.429); Lymphocyte (Absolute #) 1.08 x10^3/uL (1.18-3.74); Mean Cell Volume 93.4 fL (79.4-94.8); Mean Corpuscular Hemoglobin 29.1 pg (25.6-32.2); Mean Corpuscular Hgb Concent. 31.2 g/dL (32.2-35.5); Mean Platelet Volume 10.1 fL (9.4-12.3); Monocyte (Absolute #) 0.74 x10^3/uL (0.24-0.86); Monocytes % 5.5 % (4.7-12.5); Neutrophil % 83.3 % (34.0-71.1); Platelet Count 139 x10^3/uL (182-369); Red Blood Count 3.33 x10^6/uL (3.93-5.22); Red Cell Distribution Width 17.8 % (11.7-14.4); White Blood Count 13.4 x10^3/uL (3.98-10.04)
[2024-06-28 06:13] LABS: ALBUMIN 3.3 g/dL (3.5-5.0); ANION GAP 11.4 MEQ/L (5-15); BILIRUBIN,TOTAL 0.4 mg/dL (0.2-1.3); Calcium 8.4 mg/dL (8.4-10.2); Creatinine 1 0.82 mg/dL (0.52-1.04); EST GLOMERULAR FILTRATION RATE 80.8 ML/MIN; PROCALCITONIN 1.58 ng/mL (0.030-0.080); Potassium 3.3 mmol/L (3.5-5.1); Total Protein 6.4 g/dL (6.3-8.2)
[2024-06-28] MEDS: Klor Con PO ONE (06:32)
[2024-06-28] MEDS: Klor Con PO SCH ×2 (08:50→09:41)
[2024-06-28] MEDS: LEVOFLOXACIN 750MG/150ML D5W 750 MG/150 ML BAG IV SCH (09:44)
[2024-06-28] MEDS: SODIUM CHLORIDE 0.9% IV SCH (23:19)
[2024-06-28] MEDS: VANCOCIN IV SCH (23:19)
[2024-06-29 04:56] LABS: Absolute Neutrophil Ct (ANC) 10.79 x10^3/uL (1.56-6.13); BASOPHIL % 0.4 % (0.1-1.2); Basophil (Absolute #) 0.05 x10^3/uL (0.01-0.08); Eosinophil % 0.4 % (0.7-5.8); Eosinophil (Absolute #) 0.06 x10^3/uL (0.04-0.36); Hematocrit 32.1 % (34.1-44.9); IMMATURE GRAN # 0.56 x10^3u/L (0.001-0.031); IMMATURE GRAN % 4.1 % (0.001-0.429); Lymphocyte (Absolute #) 1.37 x10^3/uL (1.18-3.74); Mean Corpuscular Hemoglobin 29.6 pg (25.6-32.2); Mean Corpuscular Hgb Concent. 31.2 g/dL (32.2-35.5); Mean Platelet Volume 10.6 fL (9.4-12.3); Monocyte (Absolute #) 0.85 x10^3/uL (0.24-0.86); Monocytes % 6.2 % (4.7-12.5); Neutrophil % 78.9 % (34.0-71.1); Platelet Count 164 x10^3/uL (182-369); Red Blood Count 3.38 x10^6/uL (3.93-5.22); Red Cell Distribution Width 18.2 % (11.7-14.4); White Blood Count 13.7 x10^3/uL (3.98-10.04)
[2024-06-29 05:14] LABS: ALBUMIN 3.6 g/dL (3.5-5.0); BILIRUBIN,TOTAL 0.4 mg/dL (0.2-1.3); Calcium 8.8 mg/dL (8.4-10.2); Creatinine 1 0.75 mg/dL (0.52-1.04); Potassium 3.9 mmol/L (3.5-5.1); Total Protein 7.1 g/dL (6.3-8.2)
--- NOTE | 2024-06-29 05:17 | PCM.NOTE ---
Date and Time: 06/29/24 0516 Subjective Assessment: Ms. Hoskins is a 63-year-old woman with significant medical comorbidities, including COPD on chronic 3 L oxygen, HFpEF, type 2 diabetes mellitus, hypertension, and hypothyroidism, who presents from a long term with reported dyspnea, somnolence, and fever. She was noted to have hypoxia with SpO2 of 88% and a fever up to 103F at the long term, with a maximum temperature of 105.3F recorded in the ED. Initial management included BiPAP for respiratory support, now transitioned to 6 L nasal cannula. She meets criteria for sepsis, with leukocytosis of 18.4 and neutrophilic predominance, as well as elevated procalcitonin (2.83), though the source remains unclear. While pneumonia is a consideration given her COPD and reported hypoxia, chest imaging is unrevealing aside from chronic changes and mild atelectasis. She also has a small area of cellulitis on the right nice, though this appears unlikely to fully account for her severe systemic response. No evidence of urinary or abdominal source, and a respiratory viral panel is negative. Her clinical picture is further complicated by acute encephalopathy, likely multifactorial in the setting of sepsis and chronic hypoxic respiratory failure, though hypercapnia does not appear to be contributing currently. CT head was negative for acute processes. Given her chronic CO2 retention, care is being taken to avoid excessive oxygenation, and steroids are being cautiously tapered due to prolonged use beyond her last hospitalization discharge plan. She is currently on Levaquin and vancomycin to broadly cover potential sources of infection while cultures are pending. 06/28/24: Patient remains febrile with a temperature of 102F this morning but reports feeling overall improved. Denies any worsening dyspnea or confusion, both at baseline. She is on IV vancomycin and levofloxacin with improving labs; WBC has decreased from 18.[address] chest shows no acute findings. Right nice cellulitis persists and has extended beyond marked borders. Venous Doppler of the right lower extremity is negative for DVT. Right foot X-ray shows chronic hardware changes, including a fractured talotarsometatarsal screw and signs of loosening at the tibia/fibula screw. Podiatry reviewed imaging and confirmed no acute hardware changes or fractures; chronic talonavicular joint hardware remains stable and has been asymptomatic historically. Patient now has right lateral ankle pain with swelling. Imaging and exam suggest possible ATFL sprain or tear, with gapping noted on mortise views and positive anterior drawer and talar tilt tests. Podiatry recommends CAM boot for ambulation and compression stocking provided. 06/29/24: Met and examined patient bedside. She continues to experience worsening shortness of breath, now requiring increased oxygen support at 6L and demonstrating use of accessory muscles. On exam, her right lower extremity cellulitis has progressed beyond the previously marked borders, suggesting worsening soft tissue involvement despite current therapy. Her WBC count remains elevated at 13.7, stable compared to yesterday and showing some improvement since admission; however, the persistent leukocytosis, fever, and alongside confirmed group A streptococcus bacteremia raises concern for ongoing systemic infection. Given the confirmed streptococcal bacteremia and progression of her skin findings Vancomycin will be discontinued, add clindamycin to enhance coverage for group A strep. Levofloxacin will be continued to maintain broad coverage, particularly given the concerns for pulmonary involvement and the patients comorbidities. In addition to the antibiotic changes, I have ordered an echo to evaluate for possible endocarditis given the bacteremia and underlying cardiac history. I also ordered a CT scan of the right lower extremity with IV contrast to assess for deeper infection or abscess formation that might require surgical intervention, as well as a CTA of the chest to evaluate for septic emboli or pulmonary infection given her worsening dyspnea. Surgery has been consulted. Repeat blood cultures have been obtained to assess for clearance of bacteremia. - Review of Systems Constitutional: Fever, Weakness Eyes: No Symptoms Ears, Nose, & Throat: Throat Pain Respiratory: Cough, Short Of Breath Cardiac: Edema (BLE) Abdominal/Gastrointestinal: No Symptoms Genitourinary Symptoms: No Symptoms Musculoskeletal: No Symptoms Skin: Cellulitis (RLE) Neurological: No Symptoms Psychological: No Symptoms Endocrine: No Symptoms Hematologic/Lymphatic: No Symptoms Immunological/Allergic: No Symptoms Objective Exam General Appearance: no apparent distress Neurologic Exam: alert, oriented x 3, cooperative Skin Exam: pale, other (RLE with erythema exceeding marked borders -extending to mid thigh and right ankle (no drainge) Left extremity circular wound above knee - scabbed) Wound Assessment: Skin/Wound Assessment Wound/Incision Assessment Start: 06/27/24 04:48 Text: Status: Active Freq: Q6H Protocol: Document 06/29/24 02:00 LB (Rec: 06/29/24 03:08 LB [id number]) Wound/Incision Assessment Left Lower Thigh Wound Assessment Shift Assessment Wound Type Abrasion Wound Stage Non Pressure Wound Drainage Amount None General Appearance Open to air Surrounding Tissue Bright Red right lower leg Wound Assessment Shift Assessment Wound Type cellulitis Wound Stage Non Pressure Wound Drainage Amount None General Appearance Open to air Wound Bed Greatest Portion Red (Granulation) Surrounding Tissue Hermann,Bright Red Comment red/hot area to right lower leg, redness has expanded beyond original borders. right groin Wound Assessment Shift Assessment Wound Type excoriation Wound Stage Non Pressure Wound General Appearance Open to air Wound Bed Greatest Portion Red (Granulation) Surrounding Tissue Bright Red Comment nystatin cream appplied BID Wound Photo Photo Taken No Eye Exam: PERRL Ears, Nose, Throat Exam: normal ENT inspection Neck Exam: normal inspection Lymphatic Exam: adenopathy Respiratory Exam: diminished breath sounds Cardiovascular Exam: regular rate/rhythm, normal heart sounds Gastrointestinal/Abdomen Exam: soft, normal bowel sounds Extremity Exam: inflammation, pedal edema, swelling Back Exam: normal inspection Pelvic Exam: deferred Rectal Exam: deferred Objective Data Vital Signs: Vital Signs - 24 hr Temp Pulse Resp BP Pulse Ox 06/29/24 04:00 98.4 F 81 20 172/79 94 L 06/29/24 00:00 97.6 F 77 18 130/66 96 06/28/24 21:02 86 18 95 06/28/24 20:00 98.4 F 74 18 111/60 96 06/28/24 17:32 98.2 F 73 22 119/59 97 06/28/24 14:43 98.0 F 06/28/24 12:31 99.9 F 84 20 119/56 95 06/28/24 09:39 100.5 F 06/28/24 08:00 102 F 90 23 152/70 97 06/28/24 07:30 117 H 24 74 L 06/28/24 06:30 101.7 F Pain Assessment - Last Documented Pain Intensity 0 Pain Scale Used 0-10 Pain Scale Intake and Output: Intake & Output 06/26/24 06/27/24 06/28/24 06/29/24 11:59 11:59 11:59 11:59 Intake Total 120 3764 2260 Output Total 125 725 750 Balance -5 3039 1510 Weight 107 kg 106.3 kg Lab Results: Lab Results-Last 24 Hours 06/28/24 06/28/24 06/28/24 Range/Units 05:18 05:18 05:18 WBC 13.4 H (3.98-10.04) x10^3/uL RBC 3.33 L (3.93-5.22) x10^6/uL Hgb 9.7 L (11.2-15.7) g/dL Hct 31.1 L (34.1-44.9) % MCV 93.4 (79.4-94.8) fL MCH 29.1 (25.6-32.2) pg MCHC 31.2 L (32.2-35.5) g/dL RDW 17.8 H (11.7-14.4) % Plt Count 139 L (182-369) x10^3/uL MPV 10.1 (9.4-12.3) fL Gran % 83.3 H (34.0-71.1) % Immature Gran % (Auto) 2.5 H (0.001-0.429) % Nucleat RBC Rel Count 0.0 (0.00-0.2) % Eos # (Auto) 0.06 (0.04-0.36) x10^3/uL Immature Gran # (Auto) 0.34 H (0.001-0.031) x10^3u/L Absolute Lymphs (auto) 1.08 L (1.18-3.74) x10^3/uL Absolute Monos (auto) 0.74 (0.24-0.86) x10^3/uL Absolute Nucleated RBC 0.00 (0.00-0.012) x10^3u/L Lymphocytes % 8.0 L (19.3-51.7) % Monocytes % 5.5 (4.7-12.5) % Eosinophils % 0.4 L (0.7-5.8) % Basophils % 0.3 (0.1-1.2) % Absolute Granulocytes 11.16 H (1.56-6.13) x10^3/uL Basophils # 0.04 (0.01-0.08) x10^3/uL Sodium 135 (135-145) mmol/L Potassium 3.3 L (3.5-5.1) mmol/L Chloride 94 L (98-107) mmol/L Carbon Dioxide 32 H (22-30) mmol/L Anion Gap 11.4 (5-15) MEQ/L BUN 17 (7-17) mg/dL Creatinine 0.82 (0.52-1.04) mg/dL Estimated GFR 80.8 ML/MIN Glucose 130 H (74-106) mg/dL POC Glucometer (74 to 106) mg/dL Calcium 8.4 (8.4-10.2) mg/dL Total Bilirubin 0.40 (0.2-1.3) mg/dL AST 51 H (14-36) U/L ALT 35 (0-35) U/L Alkaline Phosphatase 91 (38-126) U/L Troponin I 0.025 (0.000-0.033) ng/mL Serum Total Protein 6.4 (6.3-8.2) g/dL Albumin 3.3 L (3.5-5.0) g/dL Procalcitonin 1.580 H (0.030-0.080) ng/mL 06/28/24 06/28/24 06/28/24 Range/Units 07:12 11:25 11:58 WBC (3.98-10.04) x10^3/uL RBC (3.93-5.22) x10^6/uL Hgb (11.2-15.7) g/dL Hct (34.1-44.9) % MCV (79.4-94.8) fL MCH (25.6-32.2) pg MCHC (32.2-35.5) g/dL RDW (11.7-14.4) % Plt Count (182-369) x10^3/uL MPV (9.4-12.3) fL Gran % (34.0-71.1) % Immature Gran % (Auto) (0.001-0.429) % Nucleat RBC Rel Count (0.00-0.2) % Eos # (Auto) (0.04-0.36) x10^3/uL Immature Gran # (Auto) (0.001-0.031) x10^3u/L Absolute Lymphs (auto) (1.18-3.74) x10^3/uL Absolute Monos (auto) (0.24-0.86) x10^3/uL Absolute Nucleated RBC (0.00-0.012) x10^3u/L Lymphocytes % (19.3-51.7) % Monocytes % (4.7-12.5) % Eosinophils % (0.7-5.8) % Basophils % (0.1-1.2) % Absolute Granulocytes (1.56-6.13) x10^3/uL Basophils # (0.01-0.08) x10^3/uL Sodium (135-145) mmol/L Potassium 3.9 (3.5-5.1) mmol/L Chloride (98-107) mmol/L Carbon Dioxide (22-30) mmol/L Anion Gap (5-15) MEQ/L BUN (7-17) mg/dL Creatinine (0.52-1.04) mg/dL Estimated GFR ML/MIN Glucose (74-106) mg/dL POC Glucometer 121 H 192 H (74 to 106) mg/dL Calcium (8.4-10.2) mg/dL Total Bilirubin (0.2-1.3) mg/dL AST (14-36) U/L ALT (0-35) U/L Alkaline Phosphatase (38-126) U/L Troponin I (0.000-0.033) ng/mL Serum Total Protein (6.3-8.2) g/dL Albumin (3.5-5.0) g/dL Procalcitonin (0.030-0.080) ng/mL 06/28/24 06/28/24 06/29/24 Range/Units 16:15 20:51 04:51 WBC 13.7 H (3.98-10.04) x10^3/uL RBC 3.38 L (3.93-5.22) x10^6/uL Hgb 10.0 L (11.2-15.7) g/dL Hct 32.1 L (34.1-44.9) % MCV 95.0 H (79.4-94.8) fL MCH 29.6 (25.6-32.2) pg MCHC 31.2 L (32.2-35.5) g/dL RDW 18.2 H (11.7-14.4) % Plt Count 164 L (182-369) x10^3/uL MPV 10.6 (9.4-12.3) fL Gran % 78.9 H (34.0-71.1) % Immature Gran % (Auto) 4.1 H (0.001-0.429) % Nucleat RBC Rel Count 0.0 (0.00-0.2) % Eos # (Auto) 0.06 (0.04-0.36) x10^3/uL Immature Gran # (Auto) 0.56 H (0.001-0.031) x10^3u/L Absolute Lymphs (auto) 1.37 (1.18-3.74) x10^3/uL Absolute Monos (auto) 0.85 (0.24-0.86) x10^3/uL Absolute Nucleated RBC 0.00 (0.00-0.012) x10^3u/L Lymphocytes % 10.0 L (19.3-51.7) % Monocytes % 6.2 (4.7-12.5) % Eosinophils % 0.4 L (0.7-5.8) % Basophils % 0.4 (0.1-1.2) % Absolute Granulocytes 10.79 H (1.56-6.13) x10^3/uL Basophils # 0.05 (0.01-0.08) x10^3/uL Sodium (135-145) mmol/L Potassium (3.5-5.1) mmol/L Chloride (98-107) mmol/L Carbon Dioxide (22-30) mmol/L Anion Gap (5-15) MEQ/L BUN (7-17) mg/dL Creatinine (0.52-1.04) mg/dL Estimated GFR ML/MIN Glucose (74-106) mg/dL POC Glucometer 246 H 263 H (74 to 106) mg/dL Calcium (8.4-10.2) mg/dL Total Bilirubin (0.2-1.3) mg/dL AST (14-36) U/L ALT (0-35) U/L Alkaline Phosphatase (38-126) U/L Troponin I (0.000-0.033) ng/mL Serum Total Protein (6.3-8.2) g/dL Albumin (3.5-5.0) g/dL Procalcitonin (0.030-0.080) ng/mL 05/14/25 Range/Units 04:51 WBC (3.98-10.04) x10^3/uL RBC (3.93-5.22) x10^6/uL Hgb (11.2-15.7) g/dL Hct (34.1-44.9) % MCV (79.4-94.8) fL MCH (25.6-32.2) pg MCHC (32.2-35.5) g/dL RDW (11.7-14.4) % Plt Count (182-369) x10^3/uL MPV (9.4-12.3) fL Gran % (34.0-71.1) % Immature Gran % (Auto) (0.001-0.429) % Nucleat RBC Rel Count (0.00-0.2) % Eos # (Auto) (0.04-0.36) x10^3/uL Immature Gran # (Auto) (0.001-0.031) x10^3u/L Absolute Lymphs (auto) (1.18-3.74) x10^3/uL Absolute Monos (auto) (0.24-0.86) x10^3/uL Absolute Nucleated RBC (0.00-0.012) x10^3u/L Lymphocytes % (19.3-51.7) % Monocytes % (4.7-12.5) % Eosinophils % (0.7-5.8) % Basophils % (0.1-1.2) % Absolute Granulocytes (1.56-6.13) x10^3/uL Basophils # (0.01-0.08) x10^3/uL Sodium 138 (135-145) mmol/L Potassium 3.9 (3.5-5.1) mmol/L Chloride 99 (98-107) mmol/L Carbon Dioxide 32 H (22-30) mmol/L Anion Gap 12.0 (5-15) MEQ/L BUN 14 (7-17) mg/dL Creatinine 0.75 (0.52-1.04) mg/dL Estimated GFR 90.0 ML/MIN Glucose 187 H (74-106) mg/dL POC Glucometer (74 to 106) mg/dL Calcium 8.8 (8.4-10.2) mg/dL Total Bilirubin 0.40 (0.2-1.3) mg/dL AST 55 H (14-36) U/L ALT 44 H (0-35) U/L Alkaline Phosphatase 111 (38-126) U/L Troponin I (0.000-0.033) ng/mL Serum Total Protein 7.1 (6.3-8.2) g/dL Albumin 3.6 (3.5-5.0) g/dL Procalcitonin (0.030-0.080) ng/mL Radiology Exams: Radiology Procedures Category Date Time Status CHEST WITHOUT CONTRAST [CT] Urgent Exams 06/27/24 10:30 Completed FOOT (MINIMUM 3 VIEWS) Urgent Exams 06/27/24 13:06 Completed LOWER LEG Urgent Exams 06/27/24 13:03 Completed VENOUS UNILAT/LIMITED EXTREMIT [US] Urgent Exams 06/27/24 13:08 Completed Medications: Medications Generic Name Dose Route Start Last Admin Trade Name Freq PRN Reason Stop Dose Admin Acetaminophen 650 mg 06/27/24 04:22 Acetaminophen 650 Mg Supp.Rect MO 07/27/24 04:21 Q4H PRN PRN PAIN AND/OR FEVER Acetaminophen 650 mg 06/27/24 09:16 06/28/24 11:29 Acetaminophen 325 Mg Tablet PO 07/27/24 09:15 650 mg Q4H PRN PRN Administration PAIN AND/OR FEVER Albuterol/Ipratropium 3 ml 06/27/24 05:01 06/27/24 19:24 Ipratropium/Albuterol Sulfate 3 Ml Ampul.Neb IH 07/27/24 05:00 3 ml Q4H PRN PRN Administration SHORTNESS OF BREATH/WHEEZING Allopurinol 100 mg 06/27/24 10:00 06/28/24 23:19 Allopurinol 100 Mg Tablet PO 07/27/24 09:59 100 mg BID KIKO Administration Aripiprazole 10 mg 06/27/24 22:00 06/28/24 23:18 Aripiprazole 10 Mg Tablet PO 07/27/24 21:59 10 mg HS KIKO Administration Carbamazepine 200 mg 06/27/24 10:00 06/28/24 23:18 Carbamazepine 200 Mg Tablet PO 07/27/24 09:59 200 mg BID KIKO Administration Carvedilol 6.25 mg 06/27/24 10:00 06/28/24 23:18 Carvedilol 6.25 Mg Tablet PO 07/27/24 09:59 6.25 mg BID KIKO Administration Device 1 06/29/24 09:30 Therapuetic Drug Level Monitor Each IJ 06/29/24 09:31 1XONLY ONE Duloxetine HCl 120 mg 06/27/24 10:00 06/28/24 09:42 Duloxetine Hcl 30 Mg Cap PO 07/27/24 09:59 120 mg DAILY KIKO Administration Enoxaparin Sodium 40 mg 06/27/24 10:00 06/28/24 09:42 Enoxaparin Sodium 40 Mg/0.4 Ml Syringe SQ 07/27/24 09:59 40 mg DAILY KIKO Administration Ferrous Sulfate 325 mg 06/27/24 10:00 06/28/24 09:40 Ferrous Sulfate 325 Mg Tablet PO 07/27/24 09:59 325 mg DAILY KIKO Administration Sodium Chloride 1,000 mls @ 75 mls/hr 06/27/24 10:15 06/28/24 14:41 Sodium Chloride 0.9% 1000 Ml IV 07/27/24 10:14 75 mls/hr .[id number] KIKO Administration Levofloxacin/Dextrose 750 mg in 150 mls @ 100 mls/hr 06/28/24 10:00 06/28/24 09:44 Levofloxacin 750mg/150ml D5w IV 07/28/24 09:59 100 mls/hr Q48H KIKO Administration Vancomycin HCl 1.25 gm/ Sodium 250 mls @ 166.667 mls/hr 06/28/24 22:00 06/28/24 23:19 Chloride IV 07/28/24 21:59 166.667 mls/hr Q12HT KIKO Administration Insulin Glargine 30 unit 06/27/24 10:00 06/28/24 09:42 Insulin Glargine 1 Unit SQ 07/27/24 09:59 30 unit QAM KIKO Administration Insulin Human Regular 0 unit 06/27/24 04:22 06/28/24 23:25 Insulin Regular, Human 1 Unit SQ 07/27/24 04:21 7 unit UD PRN Administration HYPERGLYCEMIA Levothyroxine Sodium 125 mcg 06/27/24 10:00 06/28/24 09:41 Levothyroxine Sodium 125 Mcg Tablet PO 07/27/24 09:59 125 mcg DAILY KIKO Administration Losartan Potassium 25 mg 06/27/24 18:00 06/28/24 17:32 Losartan Potassium 50 Mg Tablet PO 07/27/24 17:59 25 mg EVENING MEAL KIKO Administration Miscellaneous Information 1 each 06/27/24 07:30 Medication Intervention 1 Each Each 07/27/24 07:29 .RN TO CHECK KIKO Nystatin 1 gm 06/27/24 11:44 06/28/24 23:17 Nystatin Cream 30 Gm 30 Gm Tube TOP 07/27/24 11:43 1 gm BID KIKO Administration Ondansetron HCl 4 mg 06/27/24 04:22 Ondansetron Hcl 4 Mg/2 Ml Vial IV 07/27/24 04:21 Q6H PRN PRN NAUSEA/VOMITING Potassium Chloride 20 meq 06/28/24 10:00 06/28/24 09:41 Potassium Chloride Tab 10 Meq Tab PO 07/28/24 09:59 20 meq DAILY KIKO Administration Prednisone 15 mg 06/27/24 10:00 06/28/24 09:40 Prednisone 5 Mg Tablet PO 07/27/24 09:59 15 mg DAILY KIKO Administration Pregabalin 300 mg 06/27/24 10:00 06/28/24 23:19 Pregabalin 150 Mg Capsule PO 07/27/24 09:59 300 mg BID KIKO Administration Trazodone HCl 200 mg 06/27/24 22:00 06/28/24 23:19 Trazodone Hcl 50 Mg Tablet PO 07/27/24 21:59 200 mg HS KIKO Administration Discontinued Medications Generic Name Dose Route Start Last Admin Trade Name Freq PRN Reason Stop Dose Admin Acetaminophen Confirm 06/26/24 22:10 Acetaminophen 325mg Suppository Administered 06/26/24 22:11 Dose 325 mg .ROUTE .STK-MED ONE Acetaminophen 325 mg 06/26/24 22:11 06/26/24 22:17 Acetaminophen 650 Mg Supp.Rect MO 06/26/24 22:12 Not Given STAT ONE Acetaminophen 325 mg 06/26/24 22:15 06/26/24 22:17 Acetaminophen 325mg Suppository MO 06/26/24 22:16 325 mg STAT STA Administration Acetaminophen 650 mg 06/26/24 22:22 Acetaminophen 1,000 Mg/100 Ml Ml IV 06/26/24 22:23 STAT ONE Sodium Chloride 1,000 mls @ 100 mls/hr 06/26/24 22:30 06/26/24 22:31 Sodium Chloride 0.9% 1000 Ml IV 07/26/24 22:29 100 mls/hr .Q10H KIKO Administration Acetaminophen 750 mg in 75 mls @ 300 mls/hr 06/26/24 22:45 06/26/24 23:25 Ofirmev IV 06/26/24 22:59 Not Given 1HRPRIOR ONE Acetaminophen 1,000 mg in 100 mls @ 400 mls/hr 06/26/24 23:24 06/26/24 23:46 Ofirmev IV 06/26/24 23:38 Infused 1HRPRIOR ONE Infusion Levofloxacin/Dextrose 500 mg in 100 mls @ 100 mls/hr 06/26/24 23:27 06/27/24 00:45 Levofloxacin 500mg/100ml D5w IV 06/27/24 00:26 Infused STAT STA Infusion Levofloxacin/Dextrose Confirm 06/26/24 23:44 Levofloxacin 500mg/100ml D5w Administered 06/26/24 23:45 Dose 500 mg in 100 mls @ ud IV .STK-MED ONE Acetaminophen 1,000 mg in 100 mls @ 400 mls/hr 06/27/24 03:33 06/27/24 03:53 Ofirmev IV 06/27/24 03:47 Infused 1HRPRIOR ONE Infusion Sodium Chloride Confirm 06/26/24 22:29 Sodium Chloride 0.9% 1000 Ml Administered 06/26/24 22:30 Dose 1,000 mls @ ud .ROUTE .STK-MED ONE Sodium Chloride Confirm 06/27/24 01:08 Sodium Chloride 0.9% 1000 Ml Administered 06/27/24 01:09 Dose 1,000 mls @ ud .ROUTE .STK-MED ONE Sodium Chloride 1,000 mls @ 100 mls/hr 06/27/24 04:22 06/27/24 05:33 Sodium Chloride 0.9% 1000 Ml IV 07/27/24 04:21 Not Given .Q10H KIKO Vancomycin HCl 1 gm in 200 mls @ 125 mls/hr 06/27/24 05:15 06/27/24 05:25 Vancomycin 1 Gram/200 Ml Bag IV 07/27/24 05:14 125 mls/hr Q12H KIKO Administration Acetaminophen Confirm 06/26/24 23:22 Ofirmev Administered 06/26/24 23:23 Dose 100 mls @ ud IV .STK-MED ONE Acetaminophen Confirm 06/27/24 03:34 Ofirmev Administered 06/27/24 03:35 Dose 100 mls @ ud IV .STK-MED ONE Vancomycin HCl 1.25 gm in 250 mls @ 166.667 mls/hr 06/27/24 22:00 06/28/24 11:23 Vancomycin 1.25 Gm/250 Ml Bag IV 06/30/24 21:59 166.667 mls/hr Q12HT KIKO Administration Levofloxacin/Dextrose 750 mg in 150 mls @ 100 mls/hr 06/27/24 10:09 06/27/24 15:10 Levofloxacin 750mg/150ml D5w IV 06/27/24 11:38 Not Given STAT STA Levofloxacin/Dextrose 750 mg in 150 mls @ 100 mls/hr 06/27/24 22:00 Levofloxacin 750mg/150ml D5w IV 06/27/24 23:29 ONCE ONE Sodium Chloride 500 mls @ 500 mls/hr 06/27/24 11:35 06/27/24 11:40 Sodium Chloride 0.9% 500 Ml IV 06/27/24 12:34 500 mls/hr .Q1H ONE Administration Non-Formulary Medication 50 mg 06/27/24 18:00 Torsemide [Torsemide] PO 07/27/24 17:59 EVENING MEAL [facility] Non-Formulary Medication 100 mg 06/27/24 10:00 Torsemide [Torsemide] PO 07/27/24 09:59 DAILY [facility] Non-Formulary Medication 1 each 06/27/24 05:11 06/27/24 09:56 Pharmacy Dose Request: Vancomycin 1 Each IV 06/27/24 05:12 Not Given STAT ONE Potassium Chloride 40 meq 06/27/24 10:00 06/27/24 10:03 Potassium Chloride Tab 10 Meq Tab PO 07/27/24 09:59 40 meq QID KIKO Administration Potassium Chloride 40 meq 06/28/24 06:20 06/28/24 06:32 Potassium Chloride Tab 10 Meq Tab PO 06/28/24 06:21 40 meq STAT ONE Administration Potassium Chloride 20 meq 06/28/24 08:00 06/28/24 08:50 Potassium Chloride Tab 10 Meq Tab PO 06/28/24 14:01 Not Given Q2H [facility] Multi-Disciplinary Progress Notes: Multi-Disciplinary Progress Notes 06/28/24 15:34 Case Management Note by Ayesha Lopez [facility] CALLED- PATIENT IS NOT A CURRENT PATIENT WITH THEM Initialized on 06/28/24 15:34 - END OF NOTE Assessment/Plan (1) Sepsis Current Visit: Yes Status: Acute Assessment & Plan: -Presenting with fever up to 105.3F, leukocytosis (WBC 18.4, 88% neutrophils- trending down now at 13.4), procalcitonin 2.83, lactate elevated -unknown source -No hypotension currently -CXR: Mild bibasilar subsegmental atelectasis and scarring, no consolidation -CT chest: Chronic bronchovascular crowding, unchanged -UA: Negative -RVP: Negative for COVID/Flu/RSV -Blood cultures: gram + cocci in chains x1 on stain -Continue Levaquin for gram-negative coverage -Continue vancomycin for cellulitis/MRSA coverage -Monitor WBC, procalcitonin, and vitals -Lactate now WNL -Repeat blood cultures if fevers persist beyond 48-72 hours -Consider ID consult if no clear source established 06/28/24: -Patient febrile at 102 this morning -Cellulitis worsening on right nice- exceeding marked borders -Blood cultures with gram+ cocci in chains pending final sensitivity -WBC reviewed and improved at 13.4<18.4 -Now at baseline oxygen of 4L NC -Continue levaquin/vanc 06/29/24: -WBC reviewed at 13.7>13.4<18.4 -Titrate steroid to 10mg (today) for 3days, then 5mg for 3 days, then stop -Continue Levaquin - dc vanc- add clindamycin -Blood culture final sensitivity pending currently with group A streptococcus bacteremia -repeat bcult x 2 drawn 06/28/24 -afebrile overnight -Oxygen at 6L - baseline 4L -CTA chest -Echo (2) Encephalopathy Current Visit: Yes Status: Acute Assessment & Plan: -CT head: No acute intracranial process -ABG: Compensated chronic hypercapnia, no acute CO2 retention -TSH: Normal -Patient appears to now be at baseline -Treat underlying sepsis as above -Monitor neurologic status closely -Hold Xanax -Consider repeat ABG if significant lethargy/confusion Code(s): G93.40 - ENCEPHALOPATHY, UNSPECIFIED (3) COPD exacerbation Current Visit: Yes Status: Acute Assessment & Plan: -Supplemental oxygen with goal spo2 > 91 Chronic O2 at 4 L; currently on 4 L at baseline -Resume Trelegy inhaler -Resume DuoNeb q4h PRN Taper prednisone to 15 mg daily from chronic 20 mg - as stated above Code(s): J44.1 - CHRONIC OBSTRUCTIVE PULMONARY DISEASE W (ACUTE) EXACERBATION (4) Type 2 diabetes mellitus Current Visit: Yes Status: Acute Assessment & Plan: -Continue Lantus 25 units daily -Moderate-dose sliding scale insulin -Monitor glucose closely with noted poor appetite -ADA diet (5) Heart failure with preserved ejection fraction Current Visit: Yes Status: Acute Assessment & Plan: -BNP down from prior elevated level in March, currently within normal limits -No clinical signs of volume overload -Received IV fluids in ED for lactate elevation -Hold torsemide 100 mg daily and 50 mg evening dose -Monitor volume status clinically and via daily weights -Resume diuretics if evidence of overload Code(s): I50.30 - UNSPECIFIED DIASTOLIC (CONGESTIVE) HEART FAILURE (6) HTN (hypertension) Current Visit: Yes Status: Acute Assessment & Plan: -Resume carvedilol 6.25 mg BID and losartan 25 mg QHS -Monitor BP closely -Continue to hold diuretics for now Code(s): I10 - ESSENTIAL (PRIMARY) HYPERTENSION (7) Cellulitis of right lower leg Current Visit: Yes Status: Acute Assessment & Plan: -Small area of erythema over right anterior nice now exceeding marked borders to mid thigh/foot -Venous Doppler: Negative for DVT -Right foot X-ray shows chronic hardware changes, including a fractured talotarsometatarsal screw and signs of loosening at the tibia/fibula screw -Podiatry consulted and reviewed imaging and confirmed no acute hardware changes or fractures; chronic talonavicular joint hardware remains stable and has been asymptomatic historically. Patient now has right lateral ankle pain with swelling. Imaging and exam suggest possible ATFL sprain or tear, with gapping noted on mortise views and positive anterior drawer and talar tilt tests. Podiatry recommends CAM boot for ambulation and compression stocking provided. -No overt soft tissue gas or abscess on exam -Continue vancomycin/levaquin -Monitor for progression 06/29: -CT Right lower extremity -Surgery consult -evaluate for narcotizing fascititis -Abx changed from vanc/levaquin to Levquin/ clindamycin - dc vanc Code(s): L03.115 - CELLULITIS OF RIGHT LOWER LIMB (8) Hypothyroid Current Visit: Yes Status: Acute Assessment & Plan: -continue levothyroxine - TSH WNL Code(s): E03.9 - HYPOTHYROIDISM, UNSPECIFIED (9) Panic disorder Current Visit: No Status: Acute Assessment & Plan: -Resume home Tegretol, Abilify, Cymbalta, trazodone -Hold Xanax due to somnolence 06/29/24: -continue xanax Code(s): F41.0 - PANIC DISORDER [EPISODIC PAROXYSMAL ANXIETY] (10) Pneumonia Current Visit: No Status: Acute Assessment & Plan: -see sepsis plan VTE: lovenox PPI: protonix Dispo: 2-3 days Code status: Full code (2) Encephalopathy Current Visit: Yes Status: Acute Code(s): G93.40 - ENCEPHALOPATHY, UNSPECIFIED (3) COPD exacerbation Current Visit: Yes Status: Acute Code(s): J44.1 - CHRONIC OBSTRUCTIVE PULMONARY DISEASE W (ACUTE) EXACERBATION (4) Type 2 diabetes mellitus Current Visit: Yes Status: Acute (5) Heart failure with preserved ejection fraction Current Visit: Yes Status: Acute Code(s): I50.30 - UNSPECIFIED DIASTOLIC (CONGESTIVE) HEART FAILURE (6) HTN (hypertension) Current Visit: Yes Status: Acute Code(s): I10 - ESSENTIAL (PRIMARY) HYPERTENSION (7) Cellulitis of right lower leg Current Visit: Yes Status: Acute Code(s): L03.115 - CELLULITIS OF RIGHT LOWER LIMB (8) Hypothyroid Current Visit: Yes Status: Acute Code(s): E03.9 - HYPOTHYROIDISM, UNSPECIFIED (9) Panic disorder Current Visit: No Status: Acute Code(s): F41.0 - PANIC DISORDER [EPISODIC PAROXYSMAL ANXIETY] (10) Pneumonia Current Visit: No Status: Acute Code(s): J18.9 - PNEUMONIA, UNSPECIFIED ORGANISM (11) Bacteremia Current Visit: Yes Status: Acute Code(s): R78.81 - BACTEREMIA
[2024-06-29] MEDS ORDERED: Ventolin Hfa MDI IH PRN (09:43)
[2024-06-29] MEDS ORDERED: VENTOLIN COMMON CANISTER IH PRN (09:54)
[2024-06-29] MEDS ORDERED: NON-FORMULARY ITEM (Cyanocobalamin (Vitamin B-12) [B-12] 1,000 MCG Tablet) PO SCH (10:00)
[2024-06-29] MEDS ORDERED: DELTASONE 5 MG PO SCH (10:00)
[2024-06-29] MEDS: xanAX 0.25 MG PO SCH (10:08)
[2024-06-29] MEDS: Vitamin B-12 500 MCG PO SCH (10:08)
[2024-06-29] MEDS: DELTASONE 10 MG PO SCH (10:08)
[2024-06-29] MEDS: LEVOFLOXACIN 750MG/150ML D5W 750 MG/150 ML BAG IV SCH (11:21)
[2024-06-29] MEDS: ClINDAMYCIN Phosphate IVPB 300 MG/50 ML IVPB IV SCH (12:15)
[2024-06-29] MEDS: TROUGH DRUG LEVELS IJ ONE (14:59)
--- NOTE | 2024-06-29 15:00 | XRAY ---
CLINICAL HISTORY: increased o2 requirements COMPARISON: No prior studies available for comparison. TECHNIQUE: CT angiography of the chest was performed with the administration of intravenous contrast with the following protocol: axial images, reconstructed coronal and sagittal images. The contrast-enhanced images were acquired in the arterial and venous phases. Intravenous contrast (120 cc Isovue 370) was administered using automated injection techniques. Bolus tracking was employed to optimize arterial phase imaging. One of the following dose reduction techniques was utilized for this exam: Automated exposure control, adjustment of the mA and/or kV according to patient size, and use of iterative reconstruction. (CTDI: 31.57 mGy, DLP: 4388.86 mGy*cm) FINDINGS: Aorta and Great Vessels: Ascending Aorta: Normal in caliber, no aneurysm, dissection, or significant atherosclerosis. Aortic Arch: Normal in caliber, no aneurysm or dissection. Few calcific atherosclerotic plaques are seen. Descending Aorta: Normal in caliber, no aneurysm, dissection, or significant atherosclerosis. Pulmonary Arteries: The main pulmonary artery and its branches are patent. No evidence of pulmonary embolism or significant stenosis. Heart: Cardiac Chambers: Normal in size. No evidence of cardiomegaly. Streak of pericardial effusion/ thickening seen along the posteroinferior aspect of the left ventricle. Lungs and Pleura: Centrilobular emphysematous changes are seen in the bilateral upper lobes. Bilateral fissural thickening. Right middle lobe, posterior segments of upper lobes and bilateral lower lobes show subpleural reticulations - can be orthostatic with less likely possibility of infective process. A 7 mm pleural based nodule is seen in posterior basal segment of left lower lobe along with left basilar atelectatic band. No pleural effusion or pleural thickening. Mediastinum: No mediastinal mass or abnormal lymphadenopathy. Normal appearance of the trachea and central bronchi. Hilar Structures: Hilar structures are normal without enlargement. Chest Wall: Subcutaneous edema was noted along the right lateral chest wall. No mass lesions or abnormalities in the chest wall. Vascular Structures: Superior Vena Cava: Patent without evidence of stenosis or thrombus. Inferior Vena Cava: Patent without evidence of stenosis or thrombus. Bones and Soft Tissues: No fractures, lytic, or blastic lesions of the visualized bony structures. The thoracic spine shows multilevel anterior osteophytes. Slices through the upper abdomen show fatty liver with cholelithiasis, as well as a small left renal cyst. IMPRESSION: 1. CT angiography of the chest shows no evidence of pulmonary embolism or aortic aneurysm, dissection, or significant atherosclerosis. 2. Emphysematous lung disease. 3. Left basal pulmonary nodule - CT at 6?12 months recommended according to Fleischner Society pulmonary nodule recommendations. 4. Bilateral fissural thickening. 5. Right middle lobe, posterior segments of upper lobes and bilateral lower lobes show subpleural reticulations - can be orthostatic with less likely possibility of infective process. Electronically Signed by: Estiven Hancock MD. (06/29/2024 14:57:14 EDT)
[2024-06-29] MEDS: Spiriva 18 Mcg/Cap Inhaler IH SCH (15:25)
--- NOTE | 2024-06-29 16:15 | XRAY ---
CLINICAL HISTORY: necrotizing fasciitis- RLE COMPARISON: None. TECHNIQUE: Thin axial images of the right lower extremity were obtained with contrast, along with coronal and sagittal reconstructions. 120 ml isovue intravenous contrast was administered. One of the following dose reduction techniques were utilized for this exam: Automated exposure control, adjustment of the mA and/or kV according to patient size, and use of iterative reconstruction. CTDI: 2807 mGy, DLP: 4388.86 mGy-cm FINDINGS: Bones: Diffuse osteopenia and cortical irregularity of the bones of the foot.. Internal fixators in the distal fibula, talo-calcaneum, and foot appear intact, and irregular margins of the bones likely signify healed fractures. Corical irregularity of the Talus with loss of congruency of the articular surface with the distal tibia and a small defect along the talar dome having scerotic margin, likely signifying some chronic changes and Talipes deformity/abducted foot. Joint Space: Degenerative changes are seen in all the joints with mild to moderate knee joint effusions. Overcoverage of the femoral head, the possibility of pincer deformity can not be excluded. Articular Cartilage: Tiny osteophytes with subchondral sclerosis is noted in hip, knee and ankle joints. A tiny loose body distal to the medial malleolus in the ankle. Soft Tissues: Marked subcutaneous edema and thickening in the visualized foot, concerning cellulitis with muscle edema signifying myositis. Mild skin thickening and subcutaneous edema in the entire leg. No fluid collection is seen. Vascular Structures: Prominent superficial veins in the leg signifying varicose veins and right inguinal lymphadenopathy. IMPRESSION: 1. Marked skin thickening with soft tissue and muscle edema in the foot signifying cellulitis, and mild myositis. 2. Mild skin thickening and subcutaneous edema in the entire right lower extremity. No drainable collection is seen. 3. Internal fixators in the distal fibula and a visualized foot with cortical irregularity in the foot bones, signifying chronic changes. No definite evidence of osteomyelitis in the present study. Clinical and MRI correlation is advised if clinically warranted. 4. Mild to moderate knee and ankle joint effusions. 5. Defect in the Talus along the medial aspect of its dome and with the articular margin of the distal fibula, likely due to an old healed fracture and Talipes deformity/abducted foot. Clinical correlation is advised. 6. Varicose veins and a few right inguinal lymph nodes. Electronically Signed by: Estiven Hancock MD. (06/29/2024 16:11:50 EDT)
--- NOTE | 2024-06-29 16:48 | PCM.NOTE ---
Date and Time: 06/29/24 1644 Physical Exam - Narrative Narrative Physical Exam: Podiatry Physical Exam Objective Data Vital Signs: Vital Signs - 24 hr Temp Pulse Resp BP Pulse Ox 06/29/24 11:55 97.5 F 83 22 156/80 100 06/29/24 08:00 100.0 F 92 H 24 176/83 90 L 06/29/24 06:50 87 18 95 06/29/24 04:00 98.4 F 81 20 172/79 94 L 06/29/24 00:00 97.6 F 77 18 130/66 96 06/28/24 21:02 86 18 95 06/28/24 20:00 98.4 F 74 18 111/60 96 06/28/24 17:32 98.2 F 73 22 119/59 97 Pain Assessment - Last Documented Pain Intensity 0 Pain Scale Used 0-10 Pain Scale Intake and Output: Intake & Output 06/27/24 06/28/24 06/29/24 06/30/24 11:59 11:59 11:59 11:59 Intake Total 120 3764 2620 240 Output Total 125 725 750 500 Balance -5 3039 1870 -260 Weight 107 kg 106.3 kg 107.6 kg 107.6 kg Lab Results: Lab Results-Last 24 Hours 06/28/24 06/29/24 06/29/24 Range/Units 20:51 04:51 04:51 WBC 13.7 H (3.98-10.04) x10^3/uL RBC 3.38 L (3.93-5.22) x10^6/uL Hgb 10.0 L (11.2-15.7) g/dL Hct 32.1 L (34.1-44.9) % MCV 95.0 H (79.4-94.8) fL MCH 29.6 (25.6-32.2) pg MCHC 31.2 L (32.2-35.5) g/dL RDW 18.2 H (11.7-14.4) % Plt Count 164 L (182-369) x10^3/uL MPV 10.6 (9.4-12.3) fL Gran % 78.9 H (34.0-71.1) % Immature Gran % (Auto) 4.1 H (0.001-0.429) % Nucleat RBC Rel Count 0.0 (0.00-0.2) % Eos # (Auto) 0.06 (0.04-0.36) x10^3/uL Immature Gran # (Auto) 0.56 H (0.001-0.031) x10^3u/L Absolute Lymphs (auto) 1.37 (1.18-3.74) x10^3/uL Absolute Monos (auto) 0.85 (0.24-0.86) x10^3/uL Absolute Nucleated RBC 0.00 (0.00-0.012) x10^3u/L Lymphocytes % 10.0 L (19.3-51.7) % Monocytes % 6.2 (4.7-12.5) % Eosinophils % 0.4 L (0.7-5.8) % Basophils % 0.4 (0.1-1.2) % Absolute Granulocytes 10.79 H (1.56-6.13) x10^3/uL Basophils # 0.05 (0.01-0.08) x10^3/uL Sodium 138 (135-145) mmol/L Potassium 3.9 (3.5-5.1) mmol/L Chloride 99 (98-107) mmol/L Carbon Dioxide 32 H (22-30) mmol/L Anion Gap 12.0 (5-15) MEQ/L BUN 14 (7-17) mg/dL Creatinine 0.75 (0.52-1.04) mg/dL Estimated GFR 90.0 ML/MIN Glucose 187 H (74-106) mg/dL POC Glucometer 263 H (74 to 106) mg/dL Calcium 8.8 (8.4-10.2) mg/dL Total Bilirubin 0.40 (0.2-1.3) mg/dL AST 55 H (14-36) U/L ALT 44 H (0-35) U/L Alkaline Phosphatase 111 (38-126) U/L Serum Total Protein 7.1 (6.3-8.2) g/dL Albumin 3.6 (3.5-5.0) g/dL Vancomycin Trough (10-20) ug/mL Group A Strep Antibody (NEGATIVE) 06/29/24 06/29/24 06/29/24 Range/Units 06:56 09:46 10:40 WBC (3.98-10.04) x10^3/uL RBC (3.93-5.22) x10^6/uL Hgb (11.2-15.7) g/dL Hct (34.1-44.9) % MCV (79.4-94.8) fL MCH (25.6-32.2) pg MCHC (32.2-35.5) g/dL RDW (11.7-14.4) % Plt Count (182-369) x10^3/uL MPV (9.4-12.3) fL Gran % (34.0-71.1) % Immature Gran % (Auto) (0.001-0.429) % Nucleat RBC Rel Count (0.00-0.2) % Eos # (Auto) (0.04-0.36) x10^3/uL Immature Gran # (Auto) (0.001-0.031) x10^3u/L Absolute Lymphs (auto) (1.18-3.74) x10^3/uL Absolute Monos (auto) (0.24-0.86) x10^3/uL Absolute Nucleated RBC (0.00-0.012) x10^3u/L Lymphocytes % (19.3-51.7) % Monocytes % (4.7-12.5) % Eosinophils % (0.7-5.8) % Basophils % (0.1-1.2) % Absolute Granulocytes (1.56-6.13) x10^3/uL Basophils # (0.01-0.08) x10^3/uL Sodium (135-145) mmol/L Potassium (3.5-5.1) mmol/L Chloride (98-107) mmol/L Carbon Dioxide (22-30) mmol/L Anion Gap (5-15) MEQ/L BUN (7-17) mg/dL Creatinine (0.52-1.04) mg/dL Estimated GFR ML/MIN Glucose (74-106) mg/dL POC Glucometer 190 H (74 to 106) mg/dL Calcium (8.4-10.2) mg/dL Total Bilirubin (0.2-1.3) mg/dL AST (14-36) U/L ALT (0-35) U/L Alkaline Phosphatase (38-126) U/L Serum Total Protein (6.3-8.2) g/dL Albumin (3.5-5.0) g/dL Vancomycin Trough 10.89 (10-20) ug/mL Group A Strep Antibody NOT DETECTED (NEGATIVE) 06/29/24 06/29/24 Range/Units 11:03 16:18 WBC (3.98-10.04) x10^3/uL RBC (3.93-5.22) x10^6/uL Hgb (11.2-15.7) g/dL Hct (34.1-44.9) % MCV (79.4-94.8) fL MCH (25.6-32.2) pg MCHC (32.2-35.5) g/dL RDW (11.7-14.4) % Plt Count (182-369) x10^3/uL MPV (9.4-12.3) fL Gran % (34.0-71.1) % Immature Gran % (Auto) (0.001-0.429) % Nucleat RBC Rel Count (0.00-0.2) % Eos # (Auto) (0.04-0.36) x10^3/uL Immature Gran # (Auto) (0.001-0.031) x10^3u/L Absolute Lymphs (auto) (1.18-3.74) x10^3/uL Absolute Monos (auto) (0.24-0.86) x10^3/uL Absolute Nucleated RBC (0.00-0.012) x10^3u/L Lymphocytes % (19.3-51.7) % Monocytes % (4.7-12.5) % Eosinophils % (0.7-5.8) % Basophils % (0.1-1.2) % Absolute Granulocytes (1.56-6.13) x10^3/uL Basophils # (0.01-0.08) x10^3/uL Sodium (135-145) mmol/L Potassium (3.5-5.1) mmol/L Chloride (98-107) mmol/L Carbon Dioxide (22-30) mmol/L Anion Gap (5-15) MEQ/L BUN (7-17) mg/dL Creatinine (0.52-1.04) mg/dL Estimated GFR ML/MIN Glucose (74-106) mg/dL POC Glucometer 233 H 190 H (74 to 106) mg/dL Calcium (8.4-10.2) mg/dL Total Bilirubin (0.2-1.3) mg/dL AST (14-36) U/L ALT (0-35) U/L Alkaline Phosphatase (38-126) U/L Serum Total Protein (6.3-8.2) g/dL Albumin (3.5-5.0) g/dL Vancomycin Trough (10-20) ug/mL Group A Strep Antibody (NEGATIVE) Radiology Exams: Radiology Procedures Category Date Time Status CHEST WITH CONTRAST [CT] Stat Exams 06/29/24 10:28 Completed ECHO W/2D AND DOPPLER [US] Routine Exams 06/29/24 10:11 Taken LOWER EXTREMITY WITH CONTRAST [CT] Stat Exams 06/29/24 10:08 Completed Medications: Medications Generic Name Dose Route Start Last Admin Trade Name Freq PRN Reason Stop Dose Admin Acetaminophen 650 mg 06/27/24 04:22 Acetaminophen 650 Mg Supp.Rect ND 07/27/24 04:21 Q4H PRN PRN PAIN AND/OR FEVER Acetaminophen 650 mg 06/27/24 09:16 06/28/24 11:29 Acetaminophen 325 Mg Tablet PO 07/27/24 09:15 650 mg Q4H PRN PRN Administration PAIN AND/OR FEVER Albuterol Sulfate 2 puff 06/29/24 09:54 Albuterol Common Canister Inhaler 07/29/24 09:53 Q6H PRN PRN SHORTNESS OF BREATH/WHEEZING Albuterol/Ipratropium 3 ml 06/27/24 05:01 06/27/24 19:24 Ipratropium/Albuterol Sulfate 3 Ml Ampul.Neb IH 07/27/24 05:00 3 ml Q4H PRN PRN Administration SHORTNESS OF BREATH/WHEEZING Allopurinol 100 mg 06/27/24 10:00 06/29/24 10:08 Allopurinol 100 Mg Tablet PO 07/27/24 09:59 100 mg BID KIKO Administration Alprazolam 0.25 mg 06/29/24 10:00 06/29/24 15:53 Alprazolam 0.25 Mg Tablet PO 07/29/24 09:59 Not Given TID KIKO Aripiprazole 10 mg 06/27/24 22:00 06/28/24 23:18 Aripiprazole 10 Mg Tablet PO 07/27/24 21:59 10 mg HS KIKO Administration Carbamazepine 200 mg 06/27/24 10:00 06/29/24 10:57 Carbamazepine 200 Mg Tablet PO 07/27/24 09:59 200 mg BID KIKO Administration Carvedilol 6.25 mg 06/27/24 10:00 06/29/24 10:08 Carvedilol 6.25 Mg Tablet PO 07/27/24 09:59 6.25 mg BID KIKO Administration Cyanocobalamin 1,000 mcg 06/29/24 10:00 06/29/24 10:08 Cyanocobalamin 500 Mcg Tablet PO 07/29/24 09:59 1,000 mcg DAILY KIKO Administration Duloxetine HCl 120 mg 06/27/24 10:00 06/29/24 10:08 Duloxetine Hcl 30 Mg Cap PO 07/27/24 09:59 120 mg DAILY KIKO Administration Enoxaparin Sodium 40 mg 06/27/24 10:00 06/29/24 10:08 Enoxaparin Sodium 40 Mg/0.4 Ml Syringe SQ 07/27/24 09:59 40 mg DAILY KIKO Administration Ergocalciferol 50,000 unit 06/30/24 10:00 Ergocalciferol (Vitamin D2) 50,000 Unit Capsule PO 07/30/24 09:59 Th@1000 KIKO Ferrous Sulfate 325 mg 06/27/24 10:00 06/29/24 10:58 Ferrous Sulfate 325 Mg Tablet PO 07/27/24 09:59 325 mg DAILY KIKO Administration Sodium Chloride 1,000 mls @ 75 mls/hr 06/27/24 10:15 06/29/24 06:39 Sodium Chloride 0.9% 1000 Ml IV 07/27/24 10:14 75 mls/hr .[id number] KIKO Administration Levofloxacin/Dextrose 750 mg in 150 mls @ 100 mls/hr 06/29/24 11:00 06/29/24 11:21 Levofloxacin 750mg/150ml D5w IV 07/29/24 10:59 100 mls/hr DAILY KIKO Administration Clindamycin Phosphate 300 mg in 50 mls @ 100 mls/hr 06/29/24 12:00 06/29/24 12:15 Clindamycin Phosphate Ivpb IV 07/29/24 11:59 100 mls/hr Q6HT KIKO Administration Insulin Glargine 30 unit 06/27/24 10:00 06/29/24 10:07 Insulin Glargine 1 Unit SQ 07/27/24 09:59 30 unit QAM KIKO Administration Insulin Human Regular 0 unit 06/27/24 04:22 06/29/24 12:46 Insulin Regular, Human 1 Unit SQ 07/27/24 04:21 5 unit UD PRN Administration HYPERGLYCEMIA Levothyroxine Sodium 125 mcg 06/27/24 10:00 06/29/24 10:08 Levothyroxine Sodium 125 Mcg Tablet PO 07/27/24 09:59 125 mcg DAILY KIKO Administration Losartan Potassium 25 mg 06/27/24 18:00 06/28/24 17:32 Losartan Potassium 50 Mg Tablet PO 07/27/24 17:59 25 mg EVENING MEAL KIKO Administration Miscellaneous Information 1 each 06/27/24 07:30 Medication Intervention 1 Each Each 07/27/24 07:29 .RN TO CHECK KIKO Nystatin 1 gm 06/27/24 11:44 06/29/24 10:58 Nystatin Cream 30 Gm 30 Gm Tube TOP 07/27/24 11:43 1 gm BID KIKO Administration Ondansetron HCl 4 mg 06/27/24 04:22 Ondansetron Hcl 4 Mg/2 Ml Vial IV 07/27/24 04:21 Q6H PRN PRN NAUSEA/VOMITING Potassium Chloride 20 meq 06/28/24 10:00 06/29/24 10:07 Potassium Chloride Tab 10 Meq Tab PO 07/28/24 09:59 20 meq DAILY KIKO Administration Prednisone 10 mg 06/29/24 10:00 06/29/24 10:08 Prednisone 10 Mg Tablet PO 07/29/24 09:59 10 mg DAILY KIKO Administration Pregabalin 300 mg 06/27/24 10:00 06/29/24 10:08 Pregabalin 150 Mg Capsule PO 07/27/24 09:59 300 mg BID KIKO Administration Tiotropium [place] 1 ea 06/29/24 10:00 06/29/24 15:25 Tiotropium [place] 18 Mcg/Cap Inhaler IH 07/29/24 09:59 Not Given DAILY KIKO Trazodone HCl 200 mg 06/27/24 22:00 06/28/24 23:19 Trazodone Hcl 50 Mg Tablet PO 07/27/24 21:59 200 mg HS KIKO Administration Discontinued Medications Generic Name Dose Route Start Last Admin Trade Name Graciela PRN Reason Stop Dose Admin Acetaminophen Confirm 06/26/24 22:10 Acetaminophen 325mg Suppository Administered 06/26/24 22:11 Dose 325 mg .ROUTE .STK-MED ONE Acetaminophen 325 mg 06/26/24 22:11 06/26/24 22:17 Acetaminophen 650 Mg Supp.Rect ND 06/26/24 22:12 Not Given STAT ONE Acetaminophen 325 mg 06/26/24 22:15 06/26/24 22:17 Acetaminophen 325mg Suppository ND 06/26/24 22:16 325 mg STAT STA Administration Acetaminophen 650 mg 06/26/24 22:22 Acetaminophen 1,000 Mg/100 Ml Ml IV 06/26/24 22:23 STAT ONE Device 1 06/29/24 09:30 06/29/24 14:59 Therapuetic Drug Level Monitor Each IJ 06/29/24 09:31 Not Given 1XONLY ONE Sodium Chloride 1,000 mls @ 100 mls/hr 06/26/24 22:30 06/26/24 22:31 Sodium Chloride 0.9% 1000 Ml IV 07/26/24 22:29 100 mls/hr .Q10H KIKO Administration Acetaminophen 750 mg in 75 mls @ 300 mls/hr 06/26/24 22:45 06/26/24 23:25 Ofirmev IV 06/26/24 22:59 Not Given 1HRPRIOR ONE Acetaminophen 1,000 mg in 100 mls @ 400 mls/hr 06/26/24 23:24 06/26/24 23:46 Ofirmev IV 06/26/24 23:38 Infused 1HRPRIOR ONE Infusion Levofloxacin/Dextrose 500 mg in 100 mls @ 100 mls/hr 06/26/24 23:27 06/27/24 00:45 Levofloxacin 500mg/100ml D5w IV 06/27/24 00:26 Infused STAT STA Infusion Levofloxacin/Dextrose Confirm 06/26/24 23:44 Levofloxacin 500mg/100ml D5w Administered 06/26/24 23:45 Dose 500 mg in 100 mls @ ud IV .STK-MED ONE Acetaminophen 1,000 mg in 100 mls @ 400 mls/hr 06/27/24 03:33 06/27/24 03:53 Ofirmev IV 06/27/24 03:47 Infused 1HRPRIOR ONE Infusion Sodium Chloride Confirm 06/26/24 22:29 Sodium Chloride 0.9% 1000 Ml Administered 06/26/24 22:30 Dose 1,000 mls @ ud .ROUTE .STK-MED ONE Sodium Chloride Confirm 06/27/24 01:08 Sodium Chloride 0.9% 1000 Ml Administered 06/27/24 01:09 Dose 1,000 mls @ ud .ROUTE .STK-MED ONE Sodium Chloride 1,000 mls @ 100 mls/hr 06/27/24 04:22 06/27/24 05:33 Sodium Chloride 0.9% 1000 Ml IV 07/27/24 04:21 Not Given .Q10H KIKO Vancomycin HCl 1 gm in 200 mls @ 125 mls/hr 06/27/24 05:15 06/27/24 05:25 Vancomycin 1 Gram/200 Ml Bag IV 07/27/24 05:14 125 mls/hr Q12H KIKO Administration Acetaminophen Confirm 06/26/24 23:22 Ofirmev Administered 06/26/24 23:23 Dose 100 mls @ ud IV .STK-MED ONE Acetaminophen Confirm 06/27/24 03:34 Ofirmev Administered 06/27/24 03:35 Dose 100 mls @ ud IV .STK-MED ONE Vancomycin HCl 1.25 gm in 250 mls @ 166.667 mls/hr 06/27/24 22:00 06/28/24 11:23 Vancomycin 1.25 Gm/250 Ml Bag IV 06/30/24 21:59 166.667 mls/hr Q12HT KIKO Administration Levofloxacin/Dextrose 750 mg in 150 mls @ 100 mls/hr 06/27/24 10:09 06/27/24 15:10 Levofloxacin 750mg/150ml D5w IV 06/27/24 11:38 Not Given STAT STA Levofloxacin/Dextrose 750 mg in 150 mls @ 100 mls/hr 06/27/24 22:00 Levofloxacin 750mg/150ml D5w IV 06/27/24 23:29 ONCE ONE Levofloxacin/Dextrose 750 mg in 150 mls @ 100 mls/hr 06/28/24 10:00 06/28/24 09:44 Levofloxacin 750mg/150ml D5w IV 07/28/24 09:59 100 mls/hr Q48H KIKO Administration Sodium Chloride 500 mls @ 500 mls/hr 06/27/24 11:35 06/27/24 11:40 Sodium Chloride 0.9% 500 Ml IV 06/27/24 12:34 500 mls/hr .Q1H ONE Administration Vancomycin HCl 1.25 gm/ Sodium 250 mls @ 166.667 mls/hr 06/28/24 22:00 06/29/24 15:25 Chloride IV 07/28/24 21:59 Not Given Q12HT KIKO Non-Formulary Medication 50 mg 06/27/24 18:00 Torsemide [Torsemide] PO 07/27/24 17:59 EVENING MEAL KIKO Non-Formulary Medication 100 mg 06/27/24 10:00 Torsemide [Torsemide] PO 07/27/24 09:59 DAILY KIKO Non-Formulary Medication 1 each 06/27/24 05:11 06/27/24 09:56 Pharmacy Dose Request: Vancomycin 1 Each IV 06/27/24 05:12 Not Given STAT ONE Potassium Chloride 40 meq 06/27/24 10:00 06/27/24 10:03 Potassium Chloride Tab 10 Meq Tab PO 07/27/24 09:59 40 meq QID KIKO Administration Potassium Chloride 40 meq 06/28/24 06:20 06/28/24 06:32 Potassium Chloride Tab 10 Meq Tab PO 06/28/24 06:21 40 meq STAT ONE Administration Potassium Chloride 20 meq 06/28/24 08:00 06/28/24 08:50 Potassium Chloride Tab 10 Meq Tab PO 06/28/24 14:01 Not Given Q2H KIKO Prednisone 15 mg 06/27/24 10:00 06/28/24 09:40 Prednisone 5 Mg Tablet PO 07/27/24 09:59 15 mg DAILY KIKO Administration Multi-Disciplinary Progress Notes: Multi-Disciplinary Progress Notes 06/29/24 13:17 Case Management Note by Ayesha Lopez NEW REFERRAL FAXED TO [facility]. THEY WILL NEED NOTIFIED AT TIME OF DC AT [phone]. THEY WILL NEED FAXED THE DC INSTRUCTIONS, DC MED LIST AND DC SUMMARY TO [phone] Initialized on 06/29/24 13:17 - END OF NOTE 06/29/24 13:00 (created 06/29/24 15:54) Case Management Note by Ayesha Lopez S/W PATIENT - SHE CONTINUES TO PLAN TO DC BACK TO HER APT [facility]. SHE IS AGREEABLE TO HAVE [facility] AGAIN. REFERRAL SENT BACK TO [facility]. PATIENT REPORTS THE AL STAFF MANAGES HER MEDS FOR HER. SHE ALREADY HAS 24 HR OXYGEN AT HOME. WILL CONTINUE TO FOLLOW TO ENSURE DC PLAN IS ENOUGH SUPPORT FOR PATIENT Initialized on 06/29/24 15:54 - END OF NOTE 06/29/24 10:49 Respiratory Note by Jessica Marie Nurse called RT to patient's room for patient being a little more labored in her breathing and patient being a little sleepier. Upon entering room lab and US were in the room getting ready to do tests. Patient answers questions appropriately and O2 sat 99% on 6lpm. Patient states her breathing is ok. She states she is a little labored but does not want a breathing treatment at this time. O2 decreased to 4lpm per Oxym[employer]. Initialized on 06/29/24 10:49 - END OF NOTE 06/29/24 10:17 Pharmacy Note by Jerry Tran 06/29/2024 VANCOMYCIN TROUGH LEVEL = 10.89 CONTINUE CURRENT DOSE KHAUGER Initialized on 06/29/24 10:17 - END OF NOTE 06/29/24 06:30 (created 06/29/24 10:54) Respiratory Note by Jessica Marie Called to patient's room for patient's breathing being labored and O2 sat at 84% on 4lpm per Oxym[employer]. Increased patient's O2 to 6lpm per Oxymask at this time. O2 sat increased to 94% at this time. Patient offered a breathing treatment and patient refused. She states she just got anxious and that got her short of breath. Patient states she is breathing good at this time. Initialized on 06/29/24 10:54 - END OF NOTE Assessment/Plan (1) Sepsis Current Visit: No Status: Acute Qualifiers: Sepsis type: sepsis due to unspecified organism Sepsis acute organ dysf unction status: without acute organ dysfunction Qualified Code(s): A41.9 - Sepsis, unspecified organism Assessment & Plan: Patient examination and evaluation Radiographs reviewed and discussed with patient demonstrating no changes to hardware on previous follow up in outpatient setting. No obvious fractures dislocations or subluxations. 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 Pain localized to lateral aspect of ankle joint where there does appear to be acute swelling and potential sprain vs tear of ATFL ligament evidenced by gaping on mortise views of the lower extremity radiographs. Positive anterior drawer and talar tilt. Patient with some indications of worsening erythema surrounding right leg. Recommend compression in the form of unna boot to the right lower extremity. Patient at this time would likely benefit from a CAM walker for ambulation. Compression stocking provided as well. (2) Pneumonia Current Visit: No Status: Acute Code(s): J18.9 - PNEUMONIA, UNSPECIFIED ORGANISM (3) UTI (urinary tract infection) Current Visit: No Status: Resolved Code(s): N39.0 - URINARY TRACT INFECTION, SITE NOT SPECIFIED (4) DVT prophylaxis Current Visit: No Status: Acute Code(s): Z29.9 - ENCOUNTER FOR PROPHYLACTIC MEASURES, UNSPECIFIED (5) COPD exacerbation Current Visit: No Status: Acute Code(s): J44.1 - CHRONIC OBSTRUCTIVE PULMONARY DISEASE W (ACUTE) EXACERBATION (6) Generalized weakness Current Visit: No Status: Resolved Code(s): R53.1 - WEAKNESS (7) Leukocytosis Current Visit: Yes Status: Acute Code(s): D72.829 - ELEVATED WHITE BLOOD CELL COUNT, UNSPECIFIED (8) COPD with exacerbation Current Visit: No Status: Acute Code(s): J44.1 - CHRONIC OBSTRUCTIVE PULMONARY DISEASE W (ACUTE) EXACERBATION (9) Acute on chronic respiratory failure with hypoxemia Current Visit: No Status: Chronic Code(s): J96.21 - ACUTE AND CHRONIC RESPIRATORY FAILURE WITH HYPOXIA (10) Tobacco abuse Current Visit: No Status: Chronic Code(s): Z72.0 - TOBACCO USE (11) Neuropathy Current Visit: No Status: Chronic Code(s): G62.9 - POLYNEUROPATHY, UNSPECIFIED (12) Pain in right foot Current Visit: No Status: Acute Code(s): M79.671 - PAIN IN RIGHT FOOT (13) Deformity of foot Current Visit: No Status: Acute Code(s): M21.969 - UNSPECIFIED ACQUIRED DEFORMITY OF UNSPECIFIED LOWER LEG (14) LISA (acute kidney injury) Current Visit: No Status: Acute Code(s): N17.9 - ACUTE KIDNEY FAILURE, UNSPECIFIED (15) COPD (chronic obstructive pulmonary disease) Current Visit: No Status: Acute (16) CHF (congestive heart failure) Current Visit: No Status: Acute Code(s): I50.9 - HEART FAILURE, UNSPECIFIED (17) Type 2 diabetes mellitus Current Visit: No Status: Acute
[2024-06-30 05:16] LABS: Hematocrit 31.6 % (34.1-44.9); Hemoglobin 9.6 g/dL (11.2-15.7); Mean Cell Volume 96.6 fL (79.4-94.8); Mean Corpuscular Hemoglobin 29.4 pg (25.6-32.2); Mean Corpuscular Hgb Concent. 30.4 g/dL (32.2-35.5); Mean Platelet Volume 10.3 fL (9.4-12.3); Platelet Count 167 x10^3/uL (182-369); Red Blood Count 3.27 x10^6/uL (3.93-5.22); Red Cell Distribution Width 18.4 % (11.7-14.4); White Blood Count 10.4 x10^3/uL (3.98-10.04)
[2024-06-30 05:39] LABS: ALBUMIN 3.6 g/dL (3.5-5.0); ANION GAP 11.5 MEQ/L (5-15); BILIRUBIN,TOTAL 0.4 mg/dL (0.2-1.3); Calcium 9.1 mg/dL (8.4-10.2); Creatinine 1 0.72 mg/dL (0.52-1.04); EST GLOMERULAR FILTRATION RATE 94.5 ML/MIN; Potassium 4.2 mmol/L (3.5-5.1); Total Protein 7.2 g/dL (6.3-8.2)
--- NOTE | 2024-06-30 05:54 | PCM.NOTE ---
Date and Time: 06/30/24 0546 Subjective Assessment: magnolia Hoskins is a 63-year-old woman with significant medical comorbidities, including COPD on chronic 3 L oxygen, HFpEF, type 2 diabetes mellitus, hypertension, and hypothyroidism, who presents from a longterm with reported dyspnea, somnolence, and fever. She was noted to have hypoxia with SpO2 of 88% and a fever up to 103F at the longterm, with a maximum temperature of 105.3F recorded in the ED. Initial management included BiPAP for respiratory support, now transitioned to 6 L nasal cannula. She meets criteria for sepsis, with leukocytosis of 18.4 and neutrophilic predominance, as well as elevated procalcitonin (2.83), though the source remains unclear. While pneumonia is a consideration given her COPD and reported hypoxia, chest imaging is unrevealing aside from chronic changes and mild atelectasis. She also has a small area of cellulitis on the right nice, though this appears unlikely to fully account for her severe systemic response. No evidence of urinary or abdominal source, and a respiratory viral panel is negative. Her clinical picture is further complicated by acute encephalopathy, likely multifactorial in the setting of sepsis and chronic hypoxic respiratory failure, though hypercapnia does not appear to be contributing currently. CT head was negative for acute processes. Given her chronic CO2 retention, care is being taken to avoid excessive oxygenation, and steroids are being cautiously tapered due to prolonged use beyond her last hospitalization discharge plan. She is currently on Levaquin and vancomycin to broadly cover potential sources of infection while cultures are pending. 06/28/24: Patient remains febrile with a temperature of 102F this morning but reports feeling overall improved. Denies any worsening dyspnea or confusion, both at baseline. She is on IV vancomycin and levofloxacin with improving labs; WBC has decreased from 18.[address] chest shows no acute findings. Right nice cellulitis persists and has extended beyond marked borders. Venous Doppler of the right lower extremity is negative for DVT. Right foot X-ray shows chronic hardware changes, including a fractured talotarsometatarsal screw and signs of loosening at the tibia/fibula screw. Podiatry reviewed imaging and confirmed no acute hardware changes or fractures; chronic talonavicular joint hardware remains stable and has been asymptomatic historically. Patient now has right lateral ankle pain with swelling. Imaging and exam suggest possible ATFL sprain or tear, with gapping noted on mortise views and positive anterior drawer and talar tilt tests. Podiatry recommends CAM boot for ambulation and compression stocking provided. 06/29/24: Met and examined patient bedside. She continues to experience worsening shortness of breath, now requiring increased oxygen support at 6L and demonstrating use of accessory muscles. On exam, her right lower extremity cellulitis has progressed beyond the previously marked borders, suggesting worsening soft tissue involvement despite current therapy. Her WBC count remains elevated at 13.7, stable compared to yesterday and showing some improvement since admission; however, the persistent leukocytosis, fever, and alongside confirmed group A streptococcus bacteremia raises concern for ongoing systemic infection. Given the confirmed streptococcal bacteremia and progression of her skin findings Vancomycin will be discontinued, add clindamycin to enhance coverage for group A strep. Levofloxacin will be continued to maintain broad coverage, particularly given the concerns for pulmonary involvement and the patients comorbidities. In addition to the antibiotic changes, I have ordered an echo to evaluate for possible endocarditis given the bacteremia and underlying cardiac history. I also ordered a CT scan of the right lower extremity with IV contrast to assess for deeper infection or abscess formation that might require surgical intervention, as well as a CTA of the chest to evaluate for septic emboli or pulmonary infection given her worsening dyspnea. Surgery has been consulted. Repeat blood cultures have been obtained to assess for clearance of bacteremia. Objective Exam Wound Assessment: Skin/Wound Assessment Wound/Incision Assessment Start: 06/27/24 04:48 Text: Status: Active Freq: Q6H Protocol: Document 06/30/24 02:00 LB (Rec: 06/30/24 03:54 LB [id number]) Wound/Incision Assessment Left Lower Thigh Wound Assessment Shift Assessment Wound Type Abrasion Wound Stage Non Pressure Wound Drainage Amount None General Appearance Open to air Surrounding Tissue Bright Red right lower leg Wound Assessment Shift Assessment Wound Type cellulitis Wound Stage Non Pressure Wound Drainage Amount None General Appearance Open to air Wound Bed Greatest Portion Red (Granulation) Surrounding Tissue [place],Bright Red Comment red/warm to touch area to right lower leg, redness has expanded beyond marked borders . remains true right groin Wound Assessment Shift Assessment Wound Type excoriation Wound Stage Non Pressure Wound General Appearance Open to air Wound Bed Greatest Portion Red (Granulation) Surrounding Tissue Bright Red Comment nystatin cream appplied BID Wound Photo Photo Taken No Objective Data Vital Signs: Vital Signs - 24 hr Temp Pulse Resp BP Pulse Ox 06/30/24 03:56 98.1 F 68 18 125/76 96 06/29/24 23:59 72 16 93 L 06/29/24 20:00 98.2 F 80 18 127/56 95 06/29/24 17:51 80 22 91 L 06/29/24 16:00 98.4 F 79 22 179/87 97 06/29/24 11:55 97.5 F 83 22 156/80 100 06/29/24 08:00 100.0 F 92 H 24 176/83 90 L 06/29/24 06:50 87 18 95 Pain Assessment - Last Documented Pain Intensity 0 Pain Scale Used 0-10 Pain Scale Intake and Output: Intake & Output 06/27/24 06/28/24 06/29/24 06/30/24 11:59 11:59 11:59 11:59 Intake Total 120 3764 2620 720 Output Total 125 544 497 6088 Balance -5 3039 1870 -330 Weight 107 kg 106.3 kg 107.6 kg 107.6 kg Lab Results: Lab Results-Last 24 Hours 06/29/24 06/29/24 06/29/24 Range/Units 06:56 09:46 10:40 WBC (3.98-10.04) x10^3/uL RBC (3.93-5.22) x10^6/uL Hgb (11.2-15.7) g/dL Hct (34.1-44.9) % MCV (79.4-94.8) fL MCH (25.6-32.2) pg MCHC (32.2-35.5) g/dL RDW (11.7-14.4) % Plt Count (182-369) x10^3/uL MPV (9.4-12.3) fL Sodium (135-145) mmol/L Potassium (3.5-5.1) mmol/L Chloride (98-107) mmol/L Carbon Dioxide (22-30) mmol/L Anion Gap (5-15) MEQ/L BUN (7-17) mg/dL Creatinine (0.52-1.04) mg/dL Estimated GFR ML/MIN Glucose (74-106) mg/dL POC Glucometer 190 H (74 to 106) mg/dL Calcium (8.4-10.2) mg/dL Total Bilirubin (0.2-1.3) mg/dL AST (14-36) U/L ALT (0-35) U/L Alkaline Phosphatase (38-126) U/L Serum Total Protein (6.3-8.2) g/dL Albumin (3.5-5.0) g/dL Vancomycin Trough 10.89 (10-20) ug/mL Group A Strep Antibody NOT DETECTED (NEGATIVE) 06/29/24 06/29/24 06/29/24 Range/Units 11:03 16:18 20:53 WBC (3.98-10.04) x10^3/uL RBC (3.93-5.22) x10^6/uL Hgb (11.2-15.7) g/dL Hct (34.1-44.9) % MCV (79.4-94.8) fL MCH (25.6-32.2) pg MCHC (32.2-35.5) g/dL RDW (11.7-14.4) % Plt Count (182-369) x10^3/uL MPV (9.4-12.3) fL Sodium (135-145) mmol/L Potassium (3.5-5.1) mmol/L Chloride (98-107) mmol/L Carbon Dioxide (22-30) mmol/L Anion Gap (5-15) MEQ/L BUN (7-17) mg/dL Creatinine (0.52-1.04) mg/dL Estimated GFR ML/MIN Glucose (74-106) mg/dL POC Glucometer 233 H 190 H 200 H (74 to 106) mg/dL Calcium (8.4-10.2) mg/dL Total Bilirubin (0.2-1.3) mg/dL AST (14-36) U/L ALT (0-35) U/L Alkaline Phosphatase (38-126) U/L Serum Total Protein (6.3-8.2) g/dL Albumin (3.5-5.0) g/dL Vancomycin Trough (10-20) ug/mL Group A Strep Antibody (NEGATIVE) 06/30/24 06/30/24 Range/Units 05:09 05:09 WBC 10.4 H (3.98-10.04) x10^3/uL RBC 3.27 L (3.93-5.22) x10^6/uL Hgb 9.6 L (11.2-15.7) g/dL Hct 31.6 L (34.1-44.9) % MCV 96.6 H (79.4-94.8) fL MCH 29.4 (25.6-32.2) pg MCHC 30.4 L (32.2-35.5) g/dL RDW 18.4 H (11.7-14.4) % Plt Count 167 L (182-369) x10^3/uL MPV 10.3 (9.4-12.3) fL Sodium 141 (135-145) mmol/L Potassium 4.2 (3.5-5.1) mmol/L Chloride 101 (98-107) mmol/L Carbon Dioxide 32 H (22-30) mmol/L Anion Gap 11.5 (5-15) MEQ/L BUN 10 (7-17) mg/dL Creatinine 0.72 (0.52-1.04) mg/dL Estimated GFR 94.5 ML/MIN Glucose 146 H (74-106) mg/dL POC Glucometer (74 to 106) mg/dL Calcium 9.1 (8.4-10.2) mg/dL Total Bilirubin 0.40 (0.2-1.3) mg/dL AST 135 H (14-36) U/L ALT 88 H (0-35) U/L Alkaline Phosphatase 107 (38-126) U/L Serum Total Protein 7.2 (6.3-8.2) g/dL Albumin 3.6 (3.5-5.0) g/dL Vancomycin Trough (10-20) ug/mL Group A Strep Antibody (NEGATIVE) Radiology Exams: Radiology Procedures Category Date Time Status CHEST WITH CONTRAST [CT] Stat Exams 06/29/24 10:28 Completed ECHO W/2D AND DOPPLER [US] Routine Exams 06/29/24 10:11 Taken LOWER EXTREMITY WITH CONTRAST [CT] Stat Exams 06/29/24 10:08 Completed Medications: Medications Generic Name Dose Route Start Last Admin Trade Name Freq PRN Reason Stop Dose Admin Acetaminophen 650 mg 06/27/24 04:22 Acetaminophen 650 Mg Supp.Rect ME 07/27/24 04:21 Q4H PRN PRN PAIN AND/OR FEVER Acetaminophen 650 mg 05/12/25 09:16 06/28/24 11:29 Acetaminophen 325 Mg Tablet PO 07/27/24 09:15 650 mg Q4H PRN PRN Administration PAIN AND/OR FEVER Albuterol Sulfate 2 puff 06/29/24 09:54 Albuterol Common Canister Inhaler 07/29/24 09:53 Q6H PRN PRN SHORTNESS OF BREATH/WHEEZING Albuterol/Ipratropium 3 ml 06/27/24 05:01 06/27/24 19:24 Ipratropium/Albuterol Sulfate 3 Ml Ampul.Neb IH 07/27/24 05:00 3 ml Q4H PRN PRN Administration SHORTNESS OF BREATH/WHEEZING Allopurinol 100 mg 06/27/24 10:00 06/29/24 21:43 Allopurinol 100 Mg Tablet PO 07/27/24 09:59 100 mg BID KIKO Administration Alprazolam 0.25 mg 06/29/24 10:00 06/29/24 22:17 Alprazolam 0.25 Mg Tablet PO 07/29/24 09:59 Not Given TID KIKO Aripiprazole 10 mg 06/27/24 22:00 06/29/24 21:43 Aripiprazole 10 Mg Tablet PO 07/27/24 21:59 10 mg HS KIKO Administration Carbamazepine 200 mg 06/27/24 10:00 06/29/24 21:59 Carbamazepine 200 Mg Tablet PO 07/27/24 09:59 200 mg BID KIKO Administration Carvedilol 6.25 mg 06/27/24 10:00 06/29/24 21:44 Carvedilol 6.25 Mg Tablet PO 07/27/24 09:59 6.25 mg BID KIKO Administration Cyanocobalamin 1,000 mcg 06/29/24 10:00 06/29/24 10:08 Cyanocobalamin 500 Mcg Tablet PO 07/29/24 09:59 1,000 mcg DAILY KIKO Administration Duloxetine HCl 120 mg 06/27/24 10:00 06/29/24 10:08 Duloxetine Hcl 30 Mg Cap PO 07/27/24 09:59 120 mg DAILY KIKO Administration Enoxaparin Sodium 40 mg 06/27/24 10:00 06/29/24 10:08 Enoxaparin Sodium 40 Mg/0.4 Ml Syringe SQ 07/27/24 09:59 40 mg DAILY KIKO Administration Ergocalciferol 50,000 unit 06/30/24 10:00 Ergocalciferol (Vitamin D2) 50,000 Unit Capsule PO 07/30/24 09:59 Th@1000 KIKO Ferrous Sulfate 325 mg 06/27/24 10:00 06/29/24 10:58 Ferrous Sulfate 325 Mg Tablet PO 07/27/24 09:59 325 mg DAILY KIKO Administration Sodium Chloride 1,000 mls @ 75 mls/hr 06/27/24 10:15 06/29/24 23:33 Sodium Chloride 0.9% 1000 Ml IV 07/27/24 10:14 75 mls/hr .[id number] IKKO Administration Levofloxacin/Dextrose 750 mg in 150 mls @ 100 mls/hr 06/29/24 11:00 06/29/24 11:21 Levofloxacin 750mg/150ml D5w IV 07/29/24 10:59 100 mls/hr DAILY KIKO Administration Clindamycin Phosphate 300 mg in 50 mls @ 100 mls/hr 06/29/24 12:00 06/30/24 00:09 Clindamycin Phosphate Ivpb IV 07/29/24 11:59 100 mls/hr Q6HT KIKO Administration Insulin Glargine 30 unit 06/27/24 10:00 06/29/24 10:07 Insulin Glargine 1 Unit SQ 07/27/24 09:59 30 unit QAM KIKO Administration Insulin Human Regular 0 unit 06/27/24 04:22 06/29/24 21:44 Insulin Regular, Human 1 Unit SQ 07/27/24 04:21 3 unit UD PRN Administration HYPERGLYCEMIA Levothyroxine Sodium 125 mcg 06/27/24 10:00 06/29/24 10:08 Levothyroxine Sodium 125 Mcg Tablet PO 07/27/24 09:59 125 mcg DAILY KIKO Administration Losartan Potassium 25 mg 06/27/24 18:00 06/29/24 17:53 Losartan Potassium 50 Mg Tablet PO 07/27/24 17:59 25 mg EVENING MEAL KIKO Administration Miscellaneous Information 1 each 06/27/24 07:30 Medication Intervention 1 Each Each 07/27/24 07:29 .RN TO CHECK KIKO Nystatin 1 gm 06/27/24 11:44 06/29/24 21:59 Nystatin Cream 30 Gm 30 Gm Tube TOP 07/27/24 11:43 1 gm BID KIKO Administration Ondansetron HCl 4 mg 06/27/24 04:22 Ondansetron Hcl 4 Mg/2 Ml Vial IV 07/27/24 04:21 Q6H PRN PRN NAUSEA/VOMITING Potassium Chloride 20 meq 06/28/24 10:00 06/29/24 10:07 Potassium Chloride Tab 10 Meq Tab PO 07/28/24 09:59 20 meq DAILY KIKO Administration Prednisone 10 mg 06/29/24 10:00 06/29/24 10:08 Prednisone 10 Mg Tablet PO 07/29/24 09:59 10 mg DAILY KIKO Administration Pregabalin 300 mg 06/27/24 10:00 06/29/24 21:43 Pregabalin 150 Mg Capsule PO 07/27/24 09:59 300 mg BID KIKO Administration Tiotropium [place] 1 ea 06/29/24 10:00 06/29/24 15:25 Tiotropium [place] 18 Mcg/Cap Inhaler IH 07/29/24 09:59 Not Given DAILY KIKO Trazodone HCl 200 mg 06/27/24 22:00 06/29/24 21:43 Trazodone Hcl 50 Mg Tablet PO 07/27/24 21:59 200 mg HS KIKO Administration Discontinued Medications Generic Name Dose Route Start Last Admin Trade Name Rejiq PRN Reason Stop Dose Admin Acetaminophen Confirm 06/26/24 22:10 Acetaminophen 325mg Suppository Administered 06/26/24 22:11 Dose 325 mg .ROUTE .STK-MED ONE Acetaminophen 325 mg 06/26/24 22:11 06/26/24 22:17 Acetaminophen 650 Mg Supp.Rect ME 06/26/24 22:12 Not Given STAT ONE Acetaminophen 325 mg 06/26/24 22:15 06/26/24 22:17 Acetaminophen 325mg Suppository ME 06/26/24 22:16 325 mg STAT STA Administration Acetaminophen 650 mg 06/26/24 22:22 Acetaminophen 1,000 Mg/100 Ml Ml IV 06/26/24 22:23 STAT ONE Device 1 06/29/24 09:30 06/29/24 14:59 Therapuetic Drug Level Monitor Each IJ 06/29/24 09:31 Not Given 1XONLY ONE Sodium Chloride 1,000 mls @ 100 mls/hr 06/26/24 22:30 06/26/24 22:31 Sodium Chloride 0.9% 1000 Ml IV 07/26/24 22:29 100 mls/hr .Q10H KIKO Administration Acetaminophen 750 mg in 75 mls @ 300 mls/hr 06/26/24 22:45 06/26/24 23:25 Ofirmev IV 06/26/24 22:59 Not Given 1HRPRIOR ONE Acetaminophen 1,000 mg in 100 mls @ 400 mls/hr 06/26/24 23:24 06/26/24 23:46 Ofirmev IV 06/26/24 23:38 Infused 1HRPRIOR ONE Infusion Levofloxacin/Dextrose 500 mg in 100 mls @ 100 mls/hr 06/26/24 23:27 06/27/24 00:45 Levofloxacin 500mg/100ml D5w IV 06/27/24 00:26 Infused STAT STA Infusion Levofloxacin/Dextrose Confirm 06/26/24 23:44 Levofloxacin 500mg/100ml D5w Administered 06/26/24 23:45 Dose 500 mg in 100 mls @ ud IV .STK-MED ONE Acetaminophen 1,000 mg in 100 mls @ 400 mls/hr 06/27/24 03:33 06/27/24 03:53 Ofirmev IV 06/27/24 03:47 Infused 1HRPRIOR ONE Infusion Sodium Chloride Confirm 06/26/24 22:29 Sodium Chloride 0.9% 1000 Ml Administered 06/26/24 22:30 Dose 1,000 mls @ ud .ROUTE .STK-MED ONE Sodium Chloride Confirm 06/27/24 01:08 Sodium Chloride 0.9% 1000 Ml Administered 06/27/24 01:09 Dose 1,000 mls @ ud .ROUTE .STK-MED ONE Sodium Chloride 1,000 mls @ 100 mls/hr 06/27/24 04:22 06/27/24 05:33 Sodium Chloride 0.9% 1000 Ml IV 07/27/24 04:21 Not Given .Q10H KIKO Vancomycin HCl 1 gm in 200 mls @ 125 mls/hr 06/27/24 05:15 06/27/24 05:25 Vancomycin 1 Gram/200 Ml Bag IV 07/27/24 05:14 125 mls/hr Q12H KIKO Administration Acetaminophen Confirm 06/26/24 23:22 Ofirmev Administered 06/26/24 23:23 Dose 100 mls @ ud IV .STK-MED ONE Acetaminophen Confirm 06/27/24 03:34 Ofirmev Administered 06/27/24 03:35 Dose 100 mls @ ud IV .STK-MED ONE Vancomycin HCl 1.25 gm in 250 mls @ 166.667 mls/hr 06/27/24 22:00 06/28/24 11:23 Vancomycin 1.25 Gm/250 Ml Bag IV 06/30/24 21:59 166.667 mls/hr Q12HT KIOK Administration Levofloxacin/Dextrose 750 mg in 150 mls @ 100 mls/hr 06/27/24 10:09 06/27/24 15:10 Levofloxacin 750mg/150ml D5w IV 06/27/24 11:38 Not Given STAT STA Levofloxacin/Dextrose 750 mg in 150 mls @ 100 mls/hr 06/27/24 22:00 Levofloxacin 750mg/150ml D5w IV 06/27/24 23:29 ONCE ONE Levofloxacin/Dextrose 750 mg in 150 mls @ 100 mls/hr 06/28/24 10:00 06/28/24 09:44 Levofloxacin 750mg/150ml D5w IV 07/28/24 09:59 100 mls/hr Q48H KIKO Administration Sodium Chloride 500 mls @ 500 mls/hr 06/27/24 11:35 06/27/24 11:40 Sodium Chloride 0.9% 500 Ml IV 06/27/24 12:34 500 mls/hr .Q1H ONE Administration Vancomycin HCl 1.25 gm/ Sodium 250 mls @ 166.667 mls/hr 06/28/24 22:00 06/29/24 15:25 Chloride IV 07/28/24 21:59 Not Given Q12HT KIKO Non-Formulary Medication 50 mg 06/27/24 18:00 Torsemide [Torsemide] PO 07/27/24 17:59 EVENING MEAL KIKO Non-Formulary Medication 100 mg 06/27/24 10:00 Torsemide [Torsemide] PO 07/27/24 09:59 DAILY KIKO Non-Formulary Medication 1 each 06/27/24 05:11 06/27/24 09:56 Pharmacy Dose Request: Vancomycin 1 Each IV 06/27/24 05:12 Not Given STAT ONE Potassium Chloride 40 meq 06/27/24 10:00 06/27/24 10:03 Potassium Chloride Tab 10 Meq Tab PO 07/27/24 09:59 40 meq QID KIKO Administration Potassium Chloride 40 meq 06/28/24 06:20 06/28/24 06:32 Potassium Chloride Tab 10 Meq Tab PO 06/28/24 06:21 40 meq STAT ONE Administration Potassium Chloride 20 meq 06/28/24 08:00 06/28/24 08:50 Potassium Chloride Tab 10 Meq Tab PO 06/28/24 14:01 Not Given Q2H KIKO Prednisone 15 mg 06/27/24 10:00 06/28/24 09:40 Prednisone 5 Mg Tablet PO 07/27/24 09:59 15 mg DAILY KIKO Administration Multi-Disciplinary Progress Notes: Multi-Disciplinary Progress Notes 06/29/24 13:17 Case Management Note by Ayesha Lopez NEW REFERRAL FAXED TO [facility]. THEY WILL NEED NOTIFIED AT TIME OF DC AT [phone]. THEY WILL NEED FAXED THE DC INSTRUCTIONS, DC MED LIST AND DC SUMMARY TO [phone] Initialized on 06/29/24 13:17 - END OF NOTE 06/29/24 13:00 (created 06/29/24 15:54) Case Management Note by Ayesha Lopez S/W PATIENT - SHE CONTINUES TO PLAN TO DC BACK TO HER APT AT [facility]. SHE IS AGREEABLE TO HAVE [facility]. REFERRAL SENT BACK TO [facility]. PATIENT REPORTS THE AL STAFF MANAGES HER MEDS FOR HER. SHE ALREADY HAS 24 HR OXYGEN AT HOME. WILL CONTINUE TO FOLLOW TO ENSURE DC PLAN IS ENOUGH SUPPORT FOR PATIENT Initialized on 06/29/24 15:54 - END OF NOTE 06/29/24 10:49 Respiratory Note by Jessica Marie Nurse called RT to patient's room for patient being a little more labored in her breathing and patient being a little sleepier. Upon entering room lab and US were in the room getting ready to do tests. Patient answers questions appropriately and O2 sat 99% on 6lpm. Patient states her breathing is ok. She states she is a little labored but does not want a breathing treatment at this time. O2 decreased to 4lpm per Oxymask. Initialized on 06/29/24 10:49 - END OF NOTE 06/29/24 10:17 Pharmacy Note by Jerry Tran 06/29/2024 VANCOMYCIN TROUGH LEVEL = 10.89 CONTINUE CURRENT DOSE KHAUGER Initialized on 06/29/24 10:17 - END OF NOTE 06/29/24 06:30 (created 06/29/24 10:54) Respiratory Note by Jessica Marie Called to patient's room for patient's breathing being labored and O2 sat at 84% on 4lpm per Oxymask. Increased patient's O2 to 6lpm per Oxymask at this time. O2 sat increased to 94% at this time. Patient offered a breathing treatment and patient refused. She states she just got anxious and that got her short of breath. Patient states she is breathing good at this time. Initialized on 06/29/24 10:54 - END OF NOTE Assessment/Plan (1) Sepsis Current Visit: Yes Status: Acute Assessment & Plan: -Presenting with fever up to 105.3F, leukocytosis (WBC 18.4, 88% neutrophils- trending down now at 13.4), procalcitonin 2.83, lactate elevated -unknown source -No hypotension currently -CXR: Mild bibasilar subsegmental atelectasis and scarring, no consolidation -CT chest: Chronic bronchovascular crowding, unchanged -UA: Negative -RVP: Negative for COVID/Flu/RSV -Blood cultures: gram + cocci in chains x1 on stain -Continue Levaquin for gram-negative coverage -Continue vancomycin for cellulitis/MRSA coverage -Monitor WBC, procalcitonin, and vitals -Lactate now WNL -Repeat blood cultures if fevers persist beyond 48-72 hours -Consider ID consult if no clear source established 06/28/24: -Patient febrile at 102 this morning -Cellulitis worsening on right nice- exceeding marked borders -Blood cultures with gram+ cocci in chains pending final sensitivity -WBC reviewed and improved at 13.4<18.4 -Now at baseline oxygen of 4L NC -Continue levaquin/vanc 06/29/24: -WBC reviewed at 13.7>13.4<18.4 -Titrate steroid to 10mg (today) for 3days, then 5mg for 3 days, then stop -Continue Levaquin - dc vanc- add clindamycin -Blood culture final sensitivity pending currently with group A streptococcus bacteremia -repeat bcult x 2 drawn 06/28/24 -afebrile overnight -Oxygen at 6L - baseline 4L -CTA chest -Echo 06/30: -WBC improving at 10.4<13.7>13.4<18.4 -continue clindamycin/levaquin -Blood culture pending final sensitivity - showing group a strep bacteremia -Continue supplemental oxygen for goal spo2 > 91% -CTA with no PE or acute findings (2) Encephalopathy Current Visit: Yes Status: Acute Assessment & Plan: -CT head: No acute intracranial process -ABG: Compensated chronic hypercapnia, no acute CO2 retention -TSH: Normal -Patient appears to now be at baseline -Treat underlying sepsis as above -Monitor neurologic status closely -Hold Xanax -Consider repeat ABG if significant lethargy/confusion Code(s): G93.40 - ENCEPHALOPATHY, UNSPECIFIED (3) COPD exacerbation Current Visit: Yes Status: Acute Assessment & Plan: -Supplemental oxygen with goal spo2 > 91 Chronic O2 at 4 L; currently on 4 L at baseline -Resume Trelegy inhaler -Resume DuoNeb q4h PRN Taper prednisone to 15 mg daily from chronic 20 mg - as stated above Code(s): J44.1 - CHRONIC OBSTRUCTIVE PULMONARY DISEASE W (ACUTE) EXACERBATION (4) Type 2 diabetes mellitus Current Visit: Yes Status: Acute Assessment & Plan: -Continue Lantus 25 units daily -Moderate-dose sliding scale insulin -Monitor glucose closely with noted poor appetite -ADA diet (5) Heart failure with preserved ejection fraction Current Visit: Yes Status: Acute Assessment & Plan: -BNP down from prior elevated level in March, currently within normal limits -No clinical signs of volume overload -Received IV fluids in ED for lactate elevation -Hold torsemide 100 mg daily and 50 mg evening dose -Monitor volume status clinically and via daily weights -Resume diuretics if evidence of overload Code(s): I50.30 - UNSPECIFIED DIASTOLIC (CONGESTIVE) HEART FAILURE (6) HTN (hypertension) Current Visit: Yes Status: Acute Assessment & Plan: -Resume carvedilol 6.25 mg BID and losartan 25 mg QHS -Monitor BP closely -Continue to hold diuretics for now Code(s): I10 - ESSENTIAL (PRIMARY) HYPERTENSION (7) Cellulitis of right lower leg Current Visit: Yes Status: Acute Assessment & Plan: -Small area of erythema over right anterior nice now exceeding marked borders to mid thigh/foot -Venous Doppler: Negative for DVT -Right foot X-ray shows chronic hardware changes, including a fractured talotarsometatarsal screw and signs of loosening at the tibia/fibula screw -Podiatry consulted and reviewed imaging and confirmed no acute hardware changes or fractures; chronic talonavicular joint hardware remains stable and has been asymptomatic historically. Patient now has right lateral ankle pain with swelling. Imaging and exam suggest possible ATFL sprain or tear, with gapping noted on mortise views and positive anterior drawer and talar tilt tests. Podiatry recommends CAM boot for ambulation and compression stocking provided. -No overt soft tissue gas or abscess on exam -Continue vancomycin/levaquin -Monitor for progression 06/29: -CT Right lower extremity -Surgery consult -evaluate for narcotizing fascititis -Abx changed from vanc/levaquin to Levquin/ clindamycin - dc vanc 06/30: -CT right lower extremity showing marked skin thickening with soft tissue and muscle edema in the foot signifying cellulitis and mild myositis/mild skin thickening and subcutaneous edema in the entire RLE. No drainable collection is seen- mild to moderate knee and ankle joint effusions -Surgery consulted- appreciate recs -Continue Clindamycin and levaquin -pending final culture results (8) Hypothyroid Current Visit: Yes Status: Acute Assessment & Plan: -continue levothyroxine - TSH WNL Code(s): E03.9 - HYPOTHYROIDISM, UNSPECIFIED (9) Panic disorder Current Visit: No Status: Acute Assessment & Plan: -Resume home Tegretol, Abilify, Cymbalta, trazodone -Hold Xanax due to somnolence 06/29/24: -continue xanax Code(s): F41.0 - PANIC DISORDER [EPISODIC PAROXYSMAL ANXIETY] (10) Pneumonia Current Visit: No Status: Acute Assessment & Plan: -see sepsis plan VTE: lovenox PPI: protonix Dispo: 2-3 days Code status: Full code (2) Encephalopathy Current Visit: Yes Status: Acute Code(s): G93.40 - ENCEPHALOPATHY, UNSPECIFIED (3) COPD exacerbation Current Visit: Yes Status: Acute Code(s): J44.1 - CHRONIC OBSTRUCTIVE PULMONARY DISEASE W (ACUTE) EXACERBATION (4) Type 2 diabetes mellitus Current Visit: Yes Status: Acute (5) Heart failure with preserved ejection fraction Current Visit: Yes Status: Acute Code(s): I50.30 - UNSPECIFIED DIASTOLIC (CONGESTIVE) HEART FAILURE (6) HTN (hypertension) Current Visit: Yes Status: Acute Code(s): I10 - ESSENTIAL (PRIMARY) HYPERTENSION (7) Cellulitis of right lower leg Current Visit: Yes Status: Acute Code(s): L03.115 - CELLULITIS OF RIGHT LOWER LIMB (8) Hypothyroid Current Visit: Yes Status: Acute Code(s): E03.9 - HYPOTHYROIDISM, UNSPECIFIED (9) Panic disorder Current Visit: No Status: Acute Code(s): F41.0 - PANIC DISORDER [EPISODIC PAROXYSMAL ANXIETY] (10) Pneumonia Current Visit: No Status: Acute Code(s): J18.9 - PNEUMONIA, UNSPECIFIED ORGANISM (11) Bacteremia Current Visit: Yes Status: Acute Code(s): R78.81 - BACTEREMIA
[2024-06-30 08:33] LABS: Eosinophil 3 % (0.7-5.8); Lymphocytes 11 % (19.3-51.7); Monocyte 4 % (4.7-12.5); Neutrophils 82 % (34.0-71.1); Total Cells Counted 100
[2024-06-30 08:34] LABS: Hypochromia 1+; Platelet Estimate NORMAL (NORMAL)
[2024-06-30] MEDS: Advair Hfa 115/21 Common canister IH SCH (09:32)
[2024-06-30] MEDS: VITAMIN D2 PO SCH (09:57)
--- NOTE | 2024-06-30 11:31 | PCM.DS ---
Discharge Summary Date of Admission: 06/27/24 04:14 Date of Discharge: 06/30/24 Admitting Physician: BRIGIDO HARMON MD Consults: Consults on Case 06/27/24 13:09 Consult Podiatry ROUTINE 06/29/24 10:29 Consult Surgery ROUTINE Primary Care Provider: CARINE MORENO Allergies Allergies ceftriaxone Allergy (Severe, Verified 06/26/24 21:55) Anaphylactic Reaction gabapentin Allergy (Severe, Verified 06/26/24 21:55) pain cefazedone Allergy (Verified 06/26/24 21:55) hydralazine Allergy (Verified 06/26/24 21:55) Hospital Summary - Hospital Course Hospital Course: Ms. Hoskins is a 63-year-old female with significant medical comorbidities including chronic obstructive pulmonary disease (COPD) on home oxygen, heart failure with preserved ejection fraction (HFpEF), type 2 diabetes mellitus, hypertension, hypothyroidism, and a history of panic disorder, who was admitted from a [facility] with acute respiratory distress, fever, and altered mental status. She was found to be septic on arrival, with profound leukocytosis, elevated procalcitonin, and initial blood cultures demonstrating gram-positive cocci in chains later identified as group A Streptococcus bacteremia. Imaging confirmed no pulmonary embolism or pneumonia, and CT of the right lower extremity revealed diffuse cellulitis with associated mild myositis but no drainable abscess or necrotizing changes. The patient responded to antibiotic escalation to levofloxacin and clindamycin with down-trending WBC and clinical improvement. Her cellulitis remains extensive, but she remains hemodynamically stable without signs of deeper infection at this time. Given her complex bacteremia and need for ongoing infectious disease-directed management, she is being transferred to [facility] for continuation of care and specialist evaluation. Her COPD exacerbation has stabilized on inhaled therapies with a cautious steroid taper, and she is currently at her home oxygen baseline of 4-6 liters as needed. Her encephalopathy has improved and appears to be secondary to sepsis and chronic hypoxic respiratory failure. She remains on her chronic psychiatric medications but with benzodiazepines held during this acute illness. Her heart failure and hypertension have remained stable during this admission, and no clinical volume overload was noted. She will continue to require close monitoring of blood pressure, glucose, and neurologic status at the receiving facility. : Latest Assessment & Plan I spent 35 minutes [id number] with the patient on the day of discharge performing discharge exam, discussing hospital stay and discharge instructions with patient and caregivers, preparation of discharge records, prescriptions & referral forms and addressing any questions/concerns the patient had as documented above. - Vitals & Intake/Output Vital Signs: Vital Signs Temperature 98.6 F 06/30/24 07:30 Pulse Rate 90 06/30/24 07:30 Respiratory Rate 16 06/30/24 07:30 Blood Pressure 170/75 06/30/24 07:30 O2 Sat by Pulse Oximetry 92 L 06/30/24 09:29 Intake & Output: Intake & Output 06/27/24 06/28/24 06/29/24 06/30/24 11:59 11:59 11:59 11:59 Intake Total 120 3764 2620 1100 Output Total 125 704 244 2469 Balance -5 3039 1870 -200 Weight 107 kg 106.3 kg 107.6 kg 106.9 kg - Lab Result Diagrams: 06/30/24 05:09 06/30/24 05:09 Lab Results-Last 24 Hrs: Lab Results-Last 24 Hours 06/29/24 06/29/24 06/30/24 Range/Units 16:18 20:53 05:00 WBC (3.98-10.04) x10^3/uL RBC (3.93-5.22) x10^6/uL Hgb (11.2-15.7) g/dL Hct (34.1-44.9) % MCV (79.4-94.8) fL MCH (25.6-32.2) pg MCHC (32.2-35.5) g/dL RDW (11.7-14.4) % Plt Count (182-369) x10^3/uL MPV (9.4-12.3) fL Segmented Neutrophils (34.0-71.1) % Lymphocytes (Manual) (19.3-51.7) % Monocytes (Manual) (4.7-12.5) % Eosinophils (Manual) (0.7-5.8) % Hypochromia Platelet Estimate (NORMAL) RBC Morphology Sodium (135-145) mmol/L Potassium (3.5-5.1) mmol/L Chloride (98-107) mmol/L Carbon Dioxide (22-30) mmol/L Anion Gap (5-15) MEQ/L BUN (7-17) mg/dL Creatinine (0.52-1.04) mg/dL Estimated GFR ML/MIN Glucose (74-106) mg/dL POC Glucometer 190 H 200 H (74 to 106) mg/dL Calcium (8.4-10.2) mg/dL Total Bilirubin (0.2-1.3) mg/dL AST (14-36) U/L ALT (0-35) U/L Alkaline Phosphatase (38-126) U/L Serum Total Protein (6.3-8.2) g/dL Albumin (3.5-5.0) g/dL Procalcitonin 0.607 H (0.030-0.080) ng/mL 06/30/24 06/30/24 06/30/24 Range/Units 05:09 05:09 07:36 WBC 10.4 H (3.98-10.04) x10^3/uL RBC 3.27 L (3.93-5.22) x10^6/uL Hgb 9.6 L (11.2-15.7) g/dL Hct 31.6 L (34.1-44.9) % MCV 96.6 H (79.4-94.8) fL MCH 29.4 (25.6-32.2) pg MCHC 30.4 L (32.2-35.5) g/dL RDW 18.4 H (11.7-14.4) % Plt Count 167 L (182-369) x10^3/uL MPV 10.3 (9.4-12.3) fL Segmented Neutrophils 82 H (34.0-71.1) % Lymphocytes (Manual) 11 L (19.3-51.7) % Monocytes (Manual) 4 L (4.7-12.5) % Eosinophils (Manual) 3 (0.7-5.8) % Hypochromia 1+ Platelet Estimate NORMAL (NORMAL) RBC Morphology ABNORMAL Sodium 141 (135-145) mmol/L Potassium 4.2 (3.5-5.1) mmol/L Chloride 101 (98-107) mmol/L Carbon Dioxide 32 H (22-30) mmol/L Anion Gap 11.5 (5-15) MEQ/L BUN 10 (7-17) mg/dL Creatinine 0.72 (0.52-1.04) mg/dL Estimated GFR 94.5 ML/MIN Glucose 146 H (74-106) mg/dL POC Glucometer 165 H (74 to 106) mg/dL Calcium 9.1 (8.4-10.2) mg/dL Total Bilirubin 0.40 (0.2-1.3) mg/dL AST 135 H (14-36) U/L ALT 88 H (0-35) U/L Alkaline Phosphatase 107 (38-126) U/L Serum Total Protein 7.2 (6.3-8.2) g/dL Albumin 3.6 (3.5-5.0) g/dL Procalcitonin (0.030-0.080) ng/mL Micro Results-Entire Visit: Microbiology 06/28/24 10:30 Blood Culture - Preliminary Blood 06/28/24 10:24 Blood Culture - Preliminary Blood 06/26/24 22:42 Blood Culture Gram Stain - Final Blood Blood Culture - Preliminary Streptococcus Pyogenes Grp A 06/26/24 22:42 Blood Culture - Preliminary Blood 06/26/24 22:21 Urine Culture - Final Catherized <10K NORMAL SKIN JOSE ENRIQUE PROBABLE SKIN CONTAMINANT Accuchecks Date 06/30/24 Date 06/29/24 Date 06/29/24 Date 06/29/24 Time 08:08 Time 21:00 - Radiology Exams Ordered Rad Exams-Entire Visit: Radiology Procedures Category Date Time Status CHEST WITH CONTRAST [CT] Stat Exams 06/29/24 10:28 Completed ECHO W/2D AND DOPPLER [US] Routine Exams 06/29/24 10:11 Taken LOWER EXTREMITY WITH CONTRAST [CT] Stat Exams 06/29/24 10:08 Completed - Procedures and Test Procedures and Tests throughout Hospitalization: Therapy Orders & Screens 06/26/24 22:08 BiPap/CPAP STAT Comment: 06/27/24 04:22 Respiratory Therapy Consult ONCE Comment: Reason For Exam: 06/27/24 05:25 Oxygen Nasal Cannula 6 lpm Comment: Diagnosis: bilateral pneumonia, hypoxia, fever, leukocytosis Respiratory Therapy Assessment DAILY Comment: Diagnosis: bilateral pneumonia, hypoxia, fever, leukocytosis 06/30/24 19:00 Respiratory MDI BID Comment: ADVAIR 115/21 BID Diagnosis: fever Discharge Exam General Appearance: no apparent distress Neurologic Exam: alert, oriented x 3, cooperative Eye Exam: PERRL Ears, Nose, Throat Exam: normal ENT inspection Neck Exam: normal inspection Respiratory Exam: diminished breath sounds, accessory muscle use Cardiovascular Exam: regular rate/rhythm, normal heart sounds Gastrointestinal/Abdomen Exam: soft, normal bowel sounds Pelvic Exam: deferred Rectal Exam: deferred Back Exam: normal inspection Extremity Exam: inflammation, pedal edema, swelling Wound Assessment: Skin/Wound Assessment Wound/Incision Assessment Start: 06/27/24 04:48 Text: Status: Active Freq: Q6H Protocol: Document 06/30/24 02:00 LB (Rec: 06/30/24 03:54 LB [id number]) Wound/Incision Assessment Left Lower Thigh Wound Assessment Shift Assessment Wound Type Abrasion Wound Stage Non Pressure Wound Drainage Amount None General Appearance Open to air Surrounding Tissue Bright Red right lower leg Wound Assessment Shift Assessment Wound Type cellulitis Wound Stage Non Pressure Wound Drainage Amount None General Appearance Open to air Wound Bed Greatest Portion Red (Granulation) Surrounding Tissue [place],Bright Red Comment red/warm to touch area to right lower leg, redness has expanded beyond marked borders . remains true right groin Wound Assessment Shift Assessment Wound Type excoriation Wound Stage Non Pressure Wound General Appearance Open to air Wound Bed Greatest Portion Red (Granulation) Surrounding Tissue Bright Red Comment nystatin cream appplied BID Wound Photo Photo Taken No Final Diagnosis/Problem List - Final Discharge Diagnosis/Problem (1) Sepsis Current Visit: Yes Status: Acute Assessment & Plan: Continue clindamycin and levofloxacin as initiated. Blood cultures pending final sensitivities; repeat cultures obtained. Transfer to [facility] for infectious disease consultation and ongoing bacteremia management. Monitor for signs of systemic infection progression or septic complications. (2) Encephalopathy Current Visit: Yes Status: Acute Assessment & Plan: resolved Code(s): G93.40 - ENCEPHALOPATHY, UNSPECIFIED (3) COPD exacerbation Current Visit: Yes Status: Acute Assessment & Plan: Continue Trelegy inhaler once daily and Duoneb PRN. Prednisone taper as previously outlined (currently 10 mg daily, started 06/29/24 then taper). Continue oxygen therapy at baseline 4-6L NC; goal SpO2 >91%. Avoid excessive oxygenation. Code(s): J44.1 - CHRONIC OBSTRUCTIVE PULMONARY DISEASE W (ACUTE) EXACERBATION (4) Type 2 diabetes mellitus Current Visit: Yes Status: Acute Assessment & Plan: Continue Lantus 25 units daily. Continue moderate sliding scale insulin. ADA diet. Monitor glucose closely. (5) Heart failure with preserved ejection fraction Current Visit: Yes Status: Acute Assessment & Plan: Hold diuretics unless clinical signs of overload recur. Monitor daily weights and volume status. Continue carvedilol and losartan as tolerated. Code(s): I50.30 - UNSPECIFIED DIASTOLIC (CONGESTIVE) HEART FAILURE (6) HTN (hypertension) Current Visit: Yes Status: Acute Assessment & Plan: Resume carvedilol 6.25 mg BID and losartan 25 mg QHS. Monitor blood pressure regularly. Diuretics remain on hold. Code(s): I10 - ESSENTIAL (PRIMARY) HYPERTENSION (7) Cellulitis of right lower leg Current Visit: Yes Status: Acute Assessment & Plan: Continue clindamycin and levofloxacin. No drainable collection on CT; surgical consultation completed. Continue wound assessments daily. Compression stocking for associated edema. Code(s): L03.115 - CELLULITIS OF RIGHT LOWER LIMB (8) Hypothyroid Current Visit: Yes Status: Acute Assessment & Plan: continue levothyroxine Code(s): E03.9 - HYPOTHYROIDISM, UNSPECIFIED (9) Panic disorder Current Visit: No Status: Acute Assessment & Plan: -continue home meds Code(s): F41.0 - PANIC DISORDER [EPISODIC PAROXYSMAL ANXIETY] (10) Pneumonia Current Visit: No Status: Acute Assessment & Plan: CTA chest showed no evidence of pulmonary embolism, septic emboli, or acute infiltrate, but chronic bronchovascular crowding and scarring consistent with COPD were noted. Given her bacteremia and clinical presentation, lower respiratory tract infection remains suspected despite imaging being non-revealing. Continue levofloxacin to maintain broad-spectrum coverage, including for atypical and gram-negative pathogens given underlying COPD. Continue clindamycin for enhanced group A streptococcus coverage and toxin suppression, particularly given concurrent bacteremia. Adjust antibiotics if final culture sensitivities reveal resistant organisms or if there is no clinical response. Code(s): J18.9 - PNEUMONIA, UNSPECIFIED ORGANISM (11) Bacteremia Current Visit: Yes Status: Acute Assessment & Plan: -see sepsis Code(s): R78.81 - BACTEREMIA - Discharge Discharge Date: 06/30/24 ([facility] ) Disposition: DC TO OTHER HOSP Condition: Fair Prescriptions: New Clindamycin 300 mg/50 ml [ClINDAMYCIN Phosphate IVPB] 300 mg IV Q6HT iv piggy Prednisone 10 mg [Deltasone 10 mg] 10 mg PO DAILY tablet Enoxaparin Sodium [Enoxaparin Sodium] 40 mg SQ DAILY Potassium Chloride Tab* [Klor Con] 20 meq PO DAILY tablet Levofloxacin [Levofloxacin 750Mg/150Ml D5w] 750 mg IV DAILY Nystatin Cream 30 gm [Nystop 30 gm Cream] 1 gm TOP BID Acetaminophen 325 mg [Tylenol 325 mg] 650 mg PO Q4H PRN PRN tablet PRN Reason: Pain And/Or Fever Continue Insulin Glargine [Lantus Insulin] 30 units SQ QAM Carvedilol [Coreg ] 6.25 mg PO BID Tiotropium [place] Inhaler [Spiriva 18 Mcg/Cap Inhaler] 1 puff IH DAILY carBAMazepine [Tegretol] 200 mg PO BID Trazodone HCl 200 mg PO HS Pregabalin 300 mg PO BID Losartan Potassium 25 mg PO EVENING MEAL Levothyroxine Sodium 125 mcg PO DAILY Ipratropium/Albuterol Sulfate [Iprat-Albut 0.5-3(2.5) mg/3 ml] 3 ml IH Q4H PRN PRN PRN Reason: Shortness Of Breath/Wheezing Fluticasone/Umeclidin/Vilanter [Trelegy Ellipta 200-62.5-25] 1 each IH DAILY Ferrous Sulfate 325 mg [Feosol 325 mg] 325 mg PO DAILY Ergocalciferol (Vitamin D2) [Vitamin D2] 1,250 mcg PO WEEKLY Duloxetine HCl 120 mg PO DAILY Cyanocobalamin (Vitamin B-12) [B-12] 1,000 mcg PO DAILY Aripiprazole 10 mg [Abilify 10 MG] 10 mg PO HS Allopurinol 100 mg [Zyloprim 100 mg] 100 mg PO BID Albuterol 8 gm Mdi Hfa [Ventolin Hfa MDI] 109 mcg IH Q6H PRN PRN PRN Reason: Shortness Of Breath/Wheezing ALPRAZolam 0.25 MG [xanAX 0.25 MG] 0.25 mg PO TID Insulin Lispro See Rx Instructions .ROUTE .COMPLEX Discontinued predniSONE [Prednisone] 20 mg PO DAILY Torsemide 50 mg PO EVENING MEAL Torsemide 100 mg PO DAILY Potassium Chloride Tab* [Klor Con] 40 meq PO QID Additional Instructions: [facility] WILL BE NOTIFED AT [place]. THEY WILL CONTACT YOU TO RESUME CARE. THEIR PHONE # IS [phone]. Follow up with: LIBORIO DING PA [NON-STAFF PHY W/O PRIVILEGES, UNKNOWN] - 07/14/24 1:00 pm Referral Note:
[2024-06-30 20:14] VITALS: BP 123/70; PULSE 72; RESP 17; TEMP 97.6; O2SAT 91
== END 2024-06-30 21:55 | DRG 871 ==
LOC: ED 21:47 → MED SURG 06-27 04:14
PROVIDERS: ADMIT Internal Medicine; ATTEND Internal Medicine
DX: A41.9 Sepsis, unspecified organism (principal); J18.9 Pneumonia, unspecified organism; G93.40 Encephalopathy, unspecified; J44.1 Chronic obstructive pulmonary disease with (acute) exacerbation; I50.30 Unspecified diastolic (congestive) heart failure; L03.115 Cellulitis of right lower limb; T84.84XA Pain due to internal orthopedic prosthetic devices, implants and grafts, initial encounter; E11.9 Type 2 diabetes mellitus without complications; Z99.81 Dependence on supplemental oxygen; I11.0 Hypertensive heart disease with heart failure; E03.9 Hypothyroidism, unspecified; F41.0 Panic disorder [episodic paroxysmal anxiety]; M79.671 Pain in right foot; G62.9 Polyneuropathy, unspecified; Z79.899 Other long term (current) drug therapy; Z29.9 Encounter for prophylactic measures, unspecified
CPT/HCPCS: 0241U; 29580; 36415; 36600; 51702; 70450; 71045; 71250; 71260; 73590; 73630; 73701; 80053; 80202; 81001; 82140; 82375; 82803; 82947; 83605; 83735; 83880; 84132; 84145; 84439; 84443; 84484; 85025; 85027; 87040; 87077; 87086; 87651; 93005; 93306; 93971; 94002; 94003; 94640; 94760; 94762; 96374; 96375; 99223; 99232; 99291; Q3014; 99285; J1650; J1815; J1956; J3370; A9270-GY